=== PATIENT | female | born 2000 | race African-American/Black ===

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

== ENCOUNTER 2021-08-25 01:07 | Emergency (ER) | payer OTHER ==
--- OUTSIDE RECORDS SUMMARY | 2021-08-25 01:21 | XMS REPORT | Continuity of Care Document ---
:2000 Author Organization [facility] t Address [address] [place] [address] Care Team Providers Name Role Phone Bradley FAN Attending Clinician Unavailable Bradley Fan MD Attending Clinician DALTON Attending Clinician Unavailable FARHEEN Attending Clinician Unavailable Doctor Unassigned, Name Attending Clinician Unavailable Burton YOU Attending Clinician Unavailable Only, Test Attending Clinician Unavailable Shaylee OLIVAS Attending Clinician SHAYLEE Attending Clinician Unavailable Susan OLIVAS Attending Clinician Mor WALDRONP, J Attending Clinician Claudio WILLIAM, N Attending Clinician Yariel VILLANUEVA Attending Clinician Unavailable Sanjuana BAE Attending Clinician Unavailable Keon WILLIAM Attending Clinician KEON Attending Clinician Unavailable Sanjuana Bae MD Attending Clinician Brian WILLIAM Attending Clinician Bradley FAN Admitting Clinician Unavailable Bradley Fan MD Admitting Clinician Payers Payer Name Policy Type Policy Number Effective Date Expiration Date [facility] [id number] 2016 [facility] MEDICAID 00:00:00 Advance Directives Directive Decision Effective Termination Comments Source Date Date Healthcare Agents on N/A NPI: 1831 FileNameRelationshipHealthcare [id number] Agent RelationshipCommunicationLillie [facility] [phone] (Mobile) Problems Condition Condition Condition Status Onset Resolution Last Treating Co mments Source Name Details Category Date Date Treatment Clinician Date Morbid Morbid Disease Active NPI:183 obesity obesity 3 [id number] with body with body 00:00: mass index mass index 00 of of 40.0-49.9 40.0-49.9 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 Overview : NPI:183 a a 2-17 Added [id number] 00:00: automatic 00 ally from request for surgery [id number] 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 N PI:183 anterior anterior 0-30 949583 1 cruciate cruciate 00:00: ligament ligament 00 of right of right knee knee Acute Acute Disease Active 2019-04 NPI:183 medial medial 0-30 [id number] meniscus meniscus 00:00: tear of tear of 00 right knee right knee 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 homosexual 11-22 97636 behavior behavior 00:00: 00 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 smoke 05-25 [id number] exposure exposure 00:00: 00 Acanthosis Acanthosis Disease Active N PI:183 nigricans nigricans 05-25 1318 781 00:00: 00 Obesity Obesity Disease Active NPI:183 (BMI (BMI 2-22 4430924 35.0-39.9 35.0-39.9 00:00: without without 00 comorbidit comorbidit y) y) Allergies, Adverse Reactions, Alerts Allergy Allergy Status Severity Reaction(s) Onset Inactive Treating Comm ents Source Name Type Date Date Clinician NO KNOWN Drug Active NPI:183 ALLERGIE Class [id number] S Social History Social Habit Start Date Stop Date Quantity Comments Source Exposure to Not sure NPI:[id number] 1 SARS-CoV-2 (event) Tobacco use and 2020-08-20 2020-08-20 Never used NPI:[id number] exposure 00:00:00 00:00:00 Alcohol intake 2020-08-20 2020-08-20 Current NPI:[id number] 00:00:00 00:00:00 non-drinker of alcohol (finding) Tobacco Comment 2016-06-09 2016-06-09 step father NPI:[id number] 00:00:00 00:00:00 smokes outside Sex Assigned At [birth year] NPI:[id number] 00:00:00 00:00:00 Smoking Status Start Date Stop Date Source Never smoker Medications Ordered Filled Start Stop Current Ordering Indication Dosage Frequency Signature Comments Components Source Medication Medication Date Date Medication? Clinician (SIG) Name Name silver 2020-0 Yes [id number] Apply to [employer] I:183 sulfADIAZIN 3-24 area(s) 2 131 8781 E 00:00: (two) (SILVADENE) 00 times 1 % cream daily. silver 2020-0 Yes [id number] Apply to [employer] I:183 sulfADIAZIN 3-24 area(s) 2 131 8781 E 00:00: (two) (SILVADENE) 00 times 1 % cream daily. silver 2020-0 Yes [id number] Apply to [employer] I:183 sulfADIAZIN 3-24 area(s) 2 131 8781 E 00:00: (two) (SILVADENE) 00 times 1 % cream daily. silver 2020-0 Yes [id number] Apply to [employer] I:183 sulfADIAZIN 3-24 area(s) 2 131 8781 E 00:00: (two) (SILVADENE) 00 times 1 % cream daily. silver 2020-0 Yes [id number] Apply to [employer] I:183 sulfADIAZIN 3-24 area(s) 2 131 8781 E 00:00: (two) (SILVADENE) 00 times 1 % cream daily. silver 2020-0 Yes [id number] Apply to [employer] I:183 sulfADIAZIN 3-24 area(s) 2 131 8781 E 00:00: (two) (SILVADENE) 00 times 1 % cream daily. silver 2021-0 Yes [id number] Apply to [employer] I:183 sulfADIAZIN 3-24 area(s) 2 131 8781 E 00:00: (two) (SILVADENE) 00 times 1 % cream daily. silver 202-0 Yes [id number] Apply to [employer] I:183 sulfADIAZIN 3-24 area(s) 2 131 8781 E 00:00: (two) (SILVADENE) 00 times 1 % cream daily. HYDROmorpho 202-0 Yes .2mg 0.2 mg, NPI :183 ne - Slow IV [id number] (DILAUDID) 17:41: Push, injection 09 Q5MIN PRN, 0.2 mg 10 doses, Starting Tue06/17/20 at 1141, Until Discontinu ed, Routine, Pain (scale 7-10), PACU
Us e approved by (Faculty): PACU USE -ANESTHESI A SERVICE-HY DROMORPHON E INJECTIONS FENTanyl PF Yes 25ug 25 mcg, NPI :183 (SUBLIMAZE 06-17 Slow IV [id number] 1 (PF)) 17:41: Push, injection 09 Q5MIN PRN, 25 mcg 4 doses, Starting Tue06/17/20 at 1141, Until Discontinu ed, Routine, Pain (scale 4-6), PACU ondansetron Yes 4mg 4 mg, Slow NPI:183 (ZOFRAN 3 IV Push, [id number] (PF)) 17:41: PRN, 1 injection 4 09 dose, mg Starting Tue06/17/20 at 1141, Until Discontinu ed, Routine, Nausea and Vomiting (N/V), PACU gentian Yes PRN, NPI:183 shelly 1 % 06-17 Starting [id number] solution 15:28: Tue06/17/20 00 at 0928, Until Discontinu ed, Routine, Intra-op bupivacaine Yes PRN, NPI:18 3 (preserv 06-17 Starting [id number] free) 0.5% 14:44: Tue06/17/20 (SENSORCAIN 00 at 0844, E MPF) 0.5 Intra-op % (5 mg/mL) 30 mL, bupivacaine liposome (PF) (EXPAREL (PF)) 1.3 % (13.3 mg/mL) 266 mg, NaCl 0.9% (NS) 50 mL gabapentin 2020- No 600mg 600 mg, [employer] I:183 (NEURONTIN) 06-17 03-02 Oral, [id number] 1 tablet 600 11:30: 11:47 ONCE, 1 mg 00 :00 dose, Tue06/17/20 at 0530, Routine, DSU Pre-op ceFAZolin 2020- No 2000mg 2 g (2,000 NPI:183 in dextrose 3-02 03-02 mg), IV [id number] 781 (iso-os) 11:30: 12:56 Piggyback, (ANCEF) 2 00 :00 ONCE, 1 gram/100 mL dose, Tue Piggyback 2 06/17/20 at g 0530, 100 mL, DSU Pre-op
Reason for Anti-Infec tive: Surgical Prophylaxi s
Surgi harvey Prophylaxi s: Other (see Comments)< br>Duratio n of therapy: within 24 hours of surgery lactated 2020- No 1000mL at 42 NPI:1 83 ringers IV 3-02 03-02 mL/hr, [id number] 1 infusion 11:30: 11:48 1,000 mL, 1,000 mL 00 :00 IV Infusion, ONCE, 1 dose, 06/17/20 at 0530, Routine, DSU Pre-op gabapentin 2020-2020- No 600mg Take 1 NPI :183 600 mg 3-02 03-17 tablet by [id number] tablet 00:00: 04:59 mouth 3 00 :00 (three) times daily for 14 days. gabapentin 2020-2020- No 600mg Take 1 NPI :183 600 mg 3-02 03-17 tablet by [id number] tablet 00:00: 04:59 mouth 3 00 :00 (three) times daily for 14 days. gabapentin 2020-2020- No 600mg Take 1 NPI :183 600 mg 3-02 03-17 tablet by [id number] tablet 00:00: 04:59 mouth 3 00 :00 (three) times daily for 14 days. gabapentin 2020-2020- No 600mg Take 1 NPI :183 600 mg 3-02 03-17 tablet by [id number] tablet 00:00: 04:59 mouth 3 00 :00 (three) times daily for 14 days. chlorhexidi Yes [id number] Apply to NPI:183 ne 4 % 2-24 area(s) [id number] external 00:00: once daily liquid 00 as needed for Wound care. chlorhexidi Yes [id number] Apply to NPI:183 ne 4 % 2-24 area(s) [id number] external 00:00: once daily liquid 00 as needed for Wound care. chlorhexidi Yes [id number] Apply to NPI:183 ne 4 % 2-24 area(s) [id number] external 00:00: once daily liquid 00 as needed for Wound care. chlorhexidi Yes [id number] Apply to NPI:183 ne 4 % 2-24 area(s) [id number] external 00:00: once daily liquid 00 as needed for Wound care. chlorhexidi Yes [id number] Apply to NPI:183 ne 4 % 2-24 area(s) [id number] external 00:00: once daily liquid 00 as needed for Wound care. gabapentin 2020- No [id number] 600mg Take 1 NPI:183 ER 600 mg 2-24 -11 tablet by [id number] tablet, 00:00: 05:59 mouth extended 00 :00 every 8 release 24 (eight) hr hours for 14 days. acetaminoph 2020- No [id number] 1000mg Take 2 NPI:183 en (TYLENOL 2-09 07-11 tablets by 1 [id number] EXTRA 00:00: 05:59 mouth STRENGTH) 00 :00 every 8 500 mg (eight) tablet hours for 14 days. celecoxib 2020- No [id number] 200mg Take 1 NPI:183 (CELEBREX) 2-24 -11 capsule by 13 [id number] 200 mg 00:00: 05:59 mouth 2 capsule 00 :00 (two) times daily with meals for 14 days. gabapentin 2020- No [id number] 600mg Take 1 NPI:183 ER 600 mg 2-09 07-11 tablet by [id number] tablet, 00:00: 05:59 mouth extended 00 :00 every 8 release 24 (eight) hr hours for 14 days. acetaminoph 2020- No [id number] 1000mg Take 2 NPI:183 en (TYLENOL 2-24 -11 tablets by 1 [id number] EXTRA 00:00: 05:59 mouth STRENGTH) 00 :00 every 8 500 mg (eight) tablet hours for 14 days. celecoxib 2020- No [id number] 200mg Take 1 NPI:183 (CELEBREX) 2-09 07- capsule by 13 [id number] 200 mg 00:00: 05:59 mouth 2 capsule 00 :00 (two) times daily with meals for 14 days. gabapentin 2020- No [id number] 600mg Take 1 NPI:183 ER 600 mg 2- tablet by [id number] tablet, 00:00: 05:59 mouth extended 00 :00 every 8 release 24 (eight) hr hours for 14 days. acetaminoph 2020- No [id number] 1000mg Take 2 NPI:183 en (TYLENOL 06-11- tablets by 1 [id number] EXTRA 00:00: 05:59 mouth STRENGTH) 00 :00 every 8 500 mg (eight) tablet hours for 14 days. celecoxib 2020- No [id number] 200mg Take 1 NPI:183 (CELEBREX) 2- capsule by 13 [id number] 200 mg 00:00: 05:59 mouth 2 capsule 00 :00 (two) times daily with meals for 14 days. gabapentin 2020- No [id number] 600mg Take 1 NPI:183 ER 600 mg 06-11 tablet by [id number] tablet, 00:00: 05:59 mouth extended 00 :00 every 8 release 24 (eight) hr hours for 14 days. acetaminoph No [id number] 1000mg Take 2 NPI:183 en (TYLENOL 06-11 tablets by 1 [id number] EXTRA 00:00: 05:59 mouth STRENGTH) 00 :00 every 8 500 mg (eight) tablet hours for 14 days. celecoxib 2020- No [id number] 200mg Take 1 NPI:183 (CELEBREX) 2- capsule by 13 [id number] 200 mg 00:00: 05:59 mouth 2 capsule 00 :00 (two) times daily with meals for 14 days. gabapentin No [id number] 600mg Take 1 NPI:183 ER 600 mg 2-09 07-11 tablet by [id number] tablet, 00:00: 05:59 mouth extended 00 :00 every 8 release 24 (eight) hr hours for 14 days. acetaminoph 2020- No [id number] 1000mg Take 2 NPI:183 en (TYLENOL 224 -11 tablets by 1 [id number] EXTRA 00:00: 05:59 mouth STRENGTH) 00 :00 every 8 500 mg (eight) tablet hours for 14 days. celecoxib 2020- No [id number] 200mg Take 1 NPI:183 (CELEBREX) 2- capsule by 13 [id number] 200 mg 00:00: 05:59 mouth 2 capsule 00 :00 (two) times daily with meals for 14 days. gabapentin 2020- No [id number] 600mg Take 1 NPI:183 ER 600 mg 06-11- tablet by [id number] tablet, 00:00: 05:59 mouth extended 00 :00 every 8 release 24 (eight) hr hours for 14 days. acetaminoph No [id number] 1000mg Take 2 NPI:183 en (TYLENOL 06-11- tablets by 1 [id number] EXTRA 00:00: 05:59 mouth STRENGTH) 00 :00 every 8 500 mg (eight) tablet hours for 14 days. celecoxib 2020- No [id number] 200mg Take 1 NPI:183 (CELEBREX) 06-11- capsule by 13 [id number] 200 mg 00:00: 05:59 mouth 2 capsule 00 :00 (two) times daily with meals for 14 days. acetaminoph No [id number] 1000mg Take 2 NPI:183 en (TYLENOL 2-11 tablets by 1 [id number] EXTRA 00:00: 05:59 mouth STRENGTH) 00 :00 every 8 500 mg (eight) tablet hours for 14 days. celecoxib 2020- No [id number] 200mg Take 1 NPI:183 (CELEBREX) 2-11 capsule by 13 [id number] 200 mg 00:00: 05:59 mouth 2 capsule 00 :00 (two) times daily with meals for 14 days. acetaminoph No [id number] 1000mg Take 2 NPI:183 en (TYLENOL 2-24 -11 tablets by 1 [id number] EXTRA 00:00: 05:59 mouth STRENGTH) 00 :00 every 8 500 mg (eight) tablet hours for 14 days. celecoxib 2020- No [id number] 200mg Take 1 NPI:183 (CELEBREX) 06-11 capsule by 13 [id number] 200 mg 00:00: 05:59 mouth 2 capsule 00 :00 (two) times daily with meals for 14 days. acetaminoph 2020- No [id number] 1000mg Take 2 NPI:183 en (TYLENOL 06-11 tablets by 1 [id number] EXTRA 00:00: 05:59 mouth STRENGTH) 00 :00 every 8 500 mg (eight) tablet hours for 14 days. celecoxib 2020- No [id number] 200mg Take 1 NPI:183 (CELEBREX) 06-11 capsule by 13 [id number] 200 mg 00:00: 05:59 mouth 2 capsule 00 :00 (two) times daily with meals for 14 days. acetaminoph 2020- No [id number] 1000mg Take 2 NPI:183 en (TYLENOL 06-11 tablets by 1 [id number] EXTRA 00:00: 05:59 mouth STRENGTH) 00 :00 every 8 500 mg (eight) tablet hours for 14 days. celecoxib 2020- No [id number] 200mg Take 1 NPI:183 (CELEBREX) 06-11 capsule by 13 [id number] 200 mg 00:00: 05:59 mouth 2 capsule 00 :00 (two) times daily with meals for 14 days. chlorhexidi 2020- No [id number] Apply to NPI:183 ne 4 % 06-11 area(s) [id number] external 00:00: 00:00 once daily liquid 00 :00 as needed for Wound care. gabapentin 2020- No [id number] 600mg Take 1 NPI:183 ER 600 mg 06-11 tablet by [id number] tablet, 00:00: 00:00 mouth extended 00 :00 every 8 release 24 (eight) hr hours for 14 days. scopolamine 2020- No [id number] 1.5mg Apply 1 NPI:183 transdermal 06-11 Patch to 131 8781 1 mg over 3 00:00: 05:59 area(s) days patch 00 :00 every 72 (seventy-t wo) hours for 3 days. scopolamine 2020- No [id number] 1.5mg Apply 1 NPI:183 transdermal 2-11 06- Patch to 131 8781 1 mg over 3 00:00: 05:59 area(s) days patch 00 :00 every 72 (seventy-t wo) hours for 3 days. scopolamine 2020- No [id number] 1.5mg Apply 1 NPI:183 transdermal 2- Patch to 131 8781 1 mg over 3 00:00: 05:59 area(s) days patch 00 :00 every 72 (seventy-t wo) hours for 3 days. ibuprofen 2019-04 Yes 600mg Take 600 NPI :183 600 mg 1-03 mg by [id number] tablet 00:00: mouth 00 every 6 (six) hours as needed for Pain (scale 4-6). ibuprofen 2019-04 Yes 600mg Take 600 NPI :183 600 mg 1-03 mg by [id number] tablet 00:00: mouth 00 every 6 (six) hours as needed for Pain (scale 4-6). ibuprofen 2019-04 Yes 600mg Take 600 NPI :183 600 mg 1-03 mg by [id number] tablet 00:00: mouth 00 every 6 (six) hours as needed for Pain (scale 4-6). ibuprofen 2019-04 Yes 600mg Take 600 NPI :183 600 mg 1-03 mg by [id number] tablet 00:00: mouth 00 every 6 (six) hours as needed for Pain (scale 4-6). ibuprofen 2019-04 Yes 600mg Take 600 NPI :183 600 mg 1-03 mg by [id number] tablet 00:00: mouth 00 every 6 (six) hours as needed for Pain (scale 4-6). ibuprofen 2019-04 No 600mg Take 600 [employer] I:183 600 mg 1-03 01-27 mg by [id number] tablet 00:00: 00:00 mouth 00 :00 every 6 (six) hours as needed for Pain (scale 4-6). ibuprofen 2019-04 No 600mg Take 600 [employer] I:183 600 mg 1-03 01-27 mg by [id number] tablet 00:00: 00:00 mouth 00 :00 every 6 (six) hours as needed for Pain (scale 4-6). ibuprofen 2019-04 600mg Take 600 [employer] I:183 600 mg 1-03 01-27 mg by [id number] tablet 00:00: 00:00 mouth 00 :00 every 6 (six) hours as needed for Pain (scale 4-6). ibuprofen 2019-04 600mg Take 600 [employer] I:183 600 mg - 01-27 mg by [id number] tablet 00:00: 00:00 mouth 00 :00 every 6 (six) hours as needed for Pain (scale 4-6). acetaminoph 2019-04 1000mg 1,000 mg, NPI:183 en 0-04 10-04 Oral, [id number] (TYLENOL) 21:00: 20:01 ONCE, 1 tablet 00 :00 dose, Sun 1,000 mg 01/20/20 at 1600, RAYMOND traMADoL 50 2019-04 Yes [id number] 50mg Take 1 NPI: 183 mg tablet 0-04 tablet by [id number] 81 00:00: mouth 00 every 8 (eight) hours as needed for Pain (scale 7-10) for up to 15 doses. Indication s: acute pain traMADoL 50 2019-04 Yes [id number] 50mg Take 1 NPI: 183 mg tablet 0-04 tablet by [id number] 81 00:00: mouth 00 every 8 (eight) hours as needed for Pain (scale 7-10) for up to 15 doses. Indication s: acute pain traMADoL 50 2019-04 Yes 4647 50mg Take 1 NPI: 183 mg tablet 0-04 tablet by [id number] 81 00:00: mouth 00 every 8 (eight) hours as needed for Pain (scale 7-10) for up to 15 doses. Indication s: acute pain traMADoL 50 2019-04 Yes 4647 50mg Take 1 NPI: 183 mg tablet 0-04 tablet by [id number] 81 00:00: mouth 00 every 8 (eight) hours as needed for Pain (scale 7-10) for up to 15 doses. Indication s: acute pain traMADoL 50 2019-04 Yes [id number] 50mg Take 1 NPI: 183 mg tablet 0-04 tablet by [id number] 81 00:00: mouth 00 every 8 (eight) hours as needed for Pain (scale 7-10) for up to 15 doses. Indication s: acute pain traMADoL 50 2019-04 Yes 4647 50mg Take 1 NPI: 183 mg tablet 0-04 tablet by [id number] 81 00:00: mouth 00 every 8 (eight) hours as needed for Pain (scale 7-10) for up to 15 doses. Indication s: acute pain traMADoL 50 2019-04 Yes 4647 50mg Take 1 NPI: 183 mg tablet 0-04 tablet [place] [id number] 81 00:00: mouth 00 every 8 (eight) hours as needed for Pain (scale 7-10) for up to 15 doses. Indication s: acute pain traMADoL 50 2019-04 Yes 4647 50mg Take 1 NPI: 183 mg tablet 0-04 tablet [place] [id number] 81 00:00: mouth 00 every 8 (eight) hours as needed for Pain (scale 7-10) for up to 15 doses. Indication s: acute pain traMADoL 50 2019-04 Yes 4647 50mg Take 1 NPI: 183 mg tablet 0-04 tablet by [id number] 81 00:00: mouth 00 every 8 (eight) hours as needed for Pain (scale 7-10) for up to 15 doses. Indication s: acute pain traMADoL 50 2019-04 Yes 4647 50mg Take 1 NPI: 183 mg tablet 0-04 tablet by [id number] 81 00:00: mouth 00 every 8 (eight) hours as needed for Pain (scale 7-10) for up to 15 doses. Indication s: acute pain traMADoL 50 2019-04 4647 50mg Take 1 NPI :183 mg tablet 0-04 01-27 tablet by [id number] 00:00: 00:00 mouth 00 :00 every 8 (eight) hours as needed for Pain (scale 7-10) for up to 15 doses. Indication s: acute pain traMADoL 50 2019-04 4647 50mg Take 1 NPI :183 mg tablet 0-04 01-27 tablet by [id number] 00:00: 00:00 mouth 00 :00 every 8 (eight) hours as needed for Pain (scale 7-10) for up to 15 doses. Indication s: acute pain traMADoL 50 2019-04 No 4647 50mg Take 1 NPI :183 mg tablet 0-04 01-27 tablet by [id number] 00:00: 00:00 mouth 00 :00 every 8 (eight) hours as needed for Pain (scale 7-10) for up to 15 doses. Indication s: acute pain traMADoL 50 2019-04- No 4647 50mg Take 1 NPI :183 mg tablet 0-04 - tablet by [id number] 00:00: 00:00 mouth 00 :00 every 8 (eight) hours as needed for Pain (scale 7-10) for up to 15 doses. Indication s: acute pain ibuprofen 2019-04- No [id number] 800mg Take 1 NPI:183 800 mg 0-04 10- tablet by [id number] tablet 00:00: 00:00 mouth 00 :00 every 8 (eight) hours as needed for Pain (scale 4-6) for up to 30 doses. ibuprofen 2020-0 Yes [id number] 800mg Take 1 N PI:183 800 mg 4-03 tablet by [id number] tablet 00:00: mouth 00 every 8 (eight) hours. ibuprofen 2020-0 Yes [id number] 800mg Take 1 N PI:183 800 mg 4-03 tablet by [id number] tablet 00:00: mouth 00 every 8 (eight) hours. ibuprofen 2020-0 Yes [id number] 800mg Take 1 N PI:183 800 mg 4-03 tablet by [id number] tablet 00:00: mouth 00 every 8 (eight) hours. ibuprofen 2020-0 Yes [id number] 800mg Take 1 N PI:183 800 mg 4-03 tablet by [id number] tablet 00:00: mouth 00 every 8 (eight) hours. ibuprofen 2020-0 Yes [id number] 800mg Take 1 N PI:183 800 mg 4-03 tablet by [id number] tablet 00:00: mouth 00 every 8 (eight) hours. ibuprofen 2020-0 Yes [id number] 800mg Take 1 N PI:183 800 mg 4-03 tablet by [id number] tablet 00:00: mouth 00 every 8 (eight) hours. ibuprofen 2020-0 Yes [id number] 800mg Take 1 N PI:183 800 mg 4-03 tablet by [id number] tablet 00:00: mouth 00 every 8 (eight) hours. ibuprofen 2020-0 Yes [id number] 800mg Take 1 N PI:183 800 mg 4-03 tablet by [id number] tablet 00:00: mouth 00 every 8 (eight) hours. ibuprofen 2020-0 Yes [id number] 800mg Take 1 N PI:183 800 mg 4-03 tablet by [id number] tablet 00:00: mouth 00 every 8 (eight) hours. ibuprofen 2020-0 2020- No [id number] 800mg Take 1 NPI:183 800 mg 4-03 09-16 tablet by [id number] tablet 00:00: 00:00 mouth 00 :00 every 8 (eight) hours. ibuprofen 2020-0 2020- No [id number] 800mg Take 1 NPI:183 800 mg 4-03 09-16 tablet by [id number] tablet 00:00: 00:00 mouth 00 :00 every 8 (eight) hours. ibuprofen 2019-0 2020- No [id number] 800mg Take 1 NPI:183 800 mg 4-03 09-16 tablet by [id number] tablet 00:00: 00:00 mouth 00 :00 every 8 (eight) hours. ibuprofen 2019-0 2020- No [id number] 800mg Take 1 NPI:183 800 mg 4-03 09-16 tablet by [id number] tablet 00:00: 00:00 mouth 00 :00 every 8 (eight) hours. traMADOL 50 2019-0 Yes [id number] 50mg Take 1 NPI:183 mg tablet 6-03 tablet by [id number] 81 00:00: mouth 00 every 6 (six) hours as needed for Pain (scale 4-6). ibuprofen 2018-0 Yes [id number] 800mg Take 1 N PI:183 800 mg 6-03 tablet by [id number] tablet 00:00: mouth 00 every 8 (eight) hours. traMADOL 50 2018-0 2020- No [id number] 50mg Take 1 NPI:183 mg tablet 6-03 04-03 tablet by [id number] 00:00: 00:00 mouth 00 :00 every 6 (six) hours as needed for Pain (scale 4-6). ibuprofen 2019-0 2020- No [id number] 800mg Take 1 NPI:183 800 mg 6-03 04-03 tablet by [id number] tablet 00:00: 00:00 mouth 00 :00 every 8 (eight) hours. traMADOL 50 2019-0 2020- No [id number] 50mg Take 1 NPI:183 mg tablet 6-03 04-03 tablet by [id number] 00:00: 00:00 mouth 00 :00 every 6 (six) hours as needed for Pain (scale 4-6). ibuprofen 2019-0 2020- No [id number] 800mg Take 1 NPI:183 800 mg 6-03 04-03 tablet by [id number] tablet 00:00: 00:00 mouth 00 :00 every 8 (eight) hours. Dextrometho 2018-0 Yes [id number] 10mL Take 10 mL NPI:183 rphan-Guaif 2-12 by mouth 2 13 [id number] enesin 00:00: (two) (DELSYM 00 times COUGH-CHEST daily. CONGEST DM) 5-100 mg/5 mL Liqd Dextrometho 2018- 2020- No [id number] 10mL Take 10 mL NPI:183 rphan-Guaif 2-12 -03 by mouth 2 1 [id number] enesin 00:00: 00:00 (two) (DELSYM 00 :00 times COUGH-CHEST daily. CONGEST DM) 5-100 mg/5 mL Liqd Dextrometho 2017- 2020- No [id number] 10mL Take 10 mL NPI:183 rphan-Guaif 2-12 -03 by mouth 2 1 [id number] enesin 00:00: 00:00 (two) (DELSYM 00 :00 times COUGH-CHEST daily. CONGEST DM) 5-100 mg/5 mL Liqd No known No NPI:183 medications [id number] No known No NPI:183 medications [id number] No known No NPI:183 medications [id number] No known No NPI:183 medications [id number] Immunizations Ordered Immunization Filled Immunization Date Status Commen ts Source Name Name Meningococcal B, OMV 2019-11-23 Completed NPI: [id number] 00:00:00 1 Meningococcal B, OMV 2019-11-23 Completed NPI: [id number] 00:00:00 1 Meningococcal B, OMV 2019-11-23 Completed NPI: [id number] 00:00:00 1 Meningococcal B, OMV 2019-11-23 Completed NPI: [id number] 00:00:00 1 Meningococcal B, OMV 2019-11-23 Completed NPI: [id number] 00:00:00 1 Meningococcal B, OMV 2019-11-23 Completed NPI: [id number] 00:00:00 1 Meningococcal B, OMV 2019-11-23 Completed NPI: [id number] 00:00:00 1 Meningococcal B, OMV 2019-11-23 Completed NPI: [id number] 00:00:00 1 Meningococcal B, OMV 2019-11-23 Completed NPI: [id number] 00:00:00 1 Meningococcal B, OMV 2019-11-23 Completed NPI: [id number] 00:00:00 1 Meningococcal B, OMV 2019-11-23 Completed NPI: [id number] 00:00:00 1 Meningococcal B, OMV 2019-11-23 Completed NPI: [id number] 00:00:00 1 Meningococcal B, OMV 2019-11-23 Completed NPI: [id number] 00:00:00 1 Meningococcal B, OMV 2019-11-23 Completed NPI: [id number] 00:00:00 1 Meningococcal B, OMV 2019-11-23 Completed NPI: [id number] 00:00:00 1 Meningococcal B, OMV 2019-11-23 Completed NPI: [id number] 00:00:00 1 Meningococcal B, OMV 2019-11-23 Completed NPI: [id number] 00:00:00 1 Meningococcal B, OMV 2019-11-23 Completed NPI: [id number] 00:00:00 1 Meningococcal B, OMV 2019-11-23 Completed NPI: [id number] 00:00:00 1 Meningococcal B, OMV 2019-11-23 Completed NPI: [id number] 00:00:00 1 Meningococcal B, OMV 2019-11-23 Completed NPI: [id number] 00:00:00 1 Meningococcal B, OMV 2019-11-23 Completed NPI: [id number] 00:00:00 1 Meningococcal B, OMV 2019-11-23 Completed NPI: [id number] 00:00:00 1 Meningococcal B, OMV 2019-11-23 Completed NPI: [id number] 00:00:00 1 Meningococcal B, OMV 2019-11-23 Completed NPI: [id number] 00:00:00 1 Meningococcal B, OMV 2019-11-23 Completed NPI: [id number] 00:00:00 1 Meningococcal B, OMV 2019-11-23 Completed NPI: [id number] 00:00:00 1 Meningococcal B, OMV 2019-11-23 Completed NPI: [id number] 00:00:00 1 Meningococcal B, OMV 2019-11-23 Completed NPI: [id number] 00:00:00 1 Meningococcal B, OMV 2019-11-23 Completed NPI: [id number] 00:00:00 1 Meningococcal B, OMV 2019-11-23 Completed NPI: [id number] 00:00:00 1 Meningococcal B, OMV 2019-11-23 Completed NPI: [id number] 00:00:00 1 Meningococcal B, OMV 2019-11-23 Completed NPI: [id number] 00:00:00 1 Meningococcal B, OMV 2019-11-23 Completed NPI: [id number] 00:00:00 1 Meningococcal B, OMV 2019-11-23 Completed NPI: [id number] 00:00:00 1 Meningococcal B, OMV 2019-11-23 Completed NPI: [id number] 00:00:00 1 Meningococcal B, OMV 2019-11-23 Completed NPI: [id number] 00:00:00 1 Meningococcal B, OMV 2019-11-23 Completed NPI: [id number] 00:00:00 1 Meningococcal B, OMV 2019-11-23 Completed NPI: [id number] 00:00:00 1 Meningococcal B, OMV 2019-11-23 Completed NPI: [id number] 00:00:00 1 Meningococcal B, OMV 2019-11-23 Completed NPI: [id number] 00:00:00 1 Meningococcal B, OMV 2019-11-23 Completed NPI: [id number] 00:00:00 1 Meningococcal 2017-05-25 Completed NPI:[id number] 78 Polysaccharide (groups 00:00:00 1 A, C, Y and W-135) conjugate vaccine (MCV4P) Influenza Virus 2017-05-25 Completed NPI:[id number] Vaccine Quad IM 3+ YRS 00:00:00 1 Meningococcal B, OMV 2017-05-25 Completed NPI: [id number] 00:00:00 1 Meningococcal 2017-05-25 Completed NPI:[id number] 78 Polysaccharide (groups 00:00:00 1 A, C, Y and W-135) conjugate vaccine (MCV4P) Influenza Virus 2017-05-25 Completed NPI:[id number] Vaccine Quad IM 3+ YRS 00:00:00 1 Meningococcal B, OMV 2017-05-25 Completed NPI: [id number] 00:00:00 1 Meningococcal 2017-05-25 Completed NPI:[id number] 78 Polysaccharide (groups 00:00:00 1 A, C, Y and W-135) conjugate vaccine (MCV4P) Influenza Virus 2017-05-25 Completed NPI:[id number] Vaccine Quad IM 3+ YRS 00:00:00 1 Meningococcal B, OMV 2017-05-25 Completed NPI: [id number] 00:00:00 1 Meningococcal 2017-05-25 Completed NPI:[id number] 78 Polysaccharide (groups 00:00:00 1 A, C, Y and W-135) conjugate vaccine (MCV4P) Meningococcal 2017-05-25 Completed NPI:[id number] 78 Polysaccharide (groups 00:00:00 1 A, C, Y and W-135) conjugate vaccine (MCV4P) Influenza Virus 2017-05-25 Completed NPI:[id number] Vaccine Quad IM 3+ YRS 00:00:00 1 Meningococcal B, OMV 2017-05-25 Completed NPI: [id number] 00:00:00 1 Influenza Virus 2017-05-25 Completed NPI:[id number] Vaccine Quad IM 3+ YRS 00:00:00 1 Meningococcal B, OMV 2017-05-25 Completed NPI: [id number] 00:00:00 1 Meningococcal 2017-05-25 Completed NPI:[id number] 78 Polysaccharide (groups 00:00:00 1 A, C, Y and W-135) conjugate vaccine (MCV4P) Influenza Virus 2017-05-25 Completed NPI:[id number] Vaccine Quad IM 3+ YRS 00:00:00 1 Meningococcal B, OMV 2017-05-25 Completed NPI: [id number] 00:00:00 1 Meningococcal 2017-05-25 Completed NPI:[id number] 78 Polysaccharide (groups 00:00:00 1 A, C, Y and W-135) conjugate vaccine (MCV4P) Influenza Virus 2017-05-25 Completed NPI:[id number] Vaccine Quad IM 3+ YRS 00:00:00 1 Meningococcal B, OMV 2017-05-25 Completed NPI: [id number] 00:00:00 1 Meningococcal 2017-05-25 Completed NPI:[id number] 78 Polysaccharide (groups 00:00:00 1 A, C, Y and W-135) conjugate vaccine (MCV4P) Influenza Virus 2017-05-25 Completed NPI:[id number] Vaccine Quad IM 3+ YRS 00:00:00 1 Meningococcal B, OMV 2017-05-25 Completed NPI: [id number] 00:00:00 1 Meningococcal 2017-05-25 Completed NPI:[id number] 78 Polysaccharide (groups 00:00:00 1 A, C, Y and W-135) conjugate vaccine (MCV4P) Influenza Virus 2017-05-25 Completed NPI:[id number] Vaccine Quad IM 3+ YRS 00:00:00 1 Meningococcal B, OMV 2017-05-25 Completed NPI: [id number] 00:00:00 1 Meningococcal 2017-05-25 Completed NPI:[id number] 78 Polysaccharide (groups 00:00:00 1 A, C, Y and W-135) conjugate vaccine (MCV4P) Influenza Virus 2017-05-25 Completed NPI:[id number] Vaccine Quad IM 3+ YRS 00:00:00 1 Meningococcal B, OMV 2017-05-25 Completed NPI: [id number] 00:00:00 1 Meningococcal 2017-05-25 Completed NPI:[id number] 78 Polysaccharide (groups 00:00:00 1 A, C, Y and W-135) conjugate vaccine (MCV4P) Influenza Virus 2017-05-25 Completed NPI:[id number] Vaccine Quad IM 3+ YRS 00:00:00 1 Meningococcal B, OMV 2017-05-25 Completed NPI: [id number] 00:00:00 1 Meningococcal 2017-05-25 Completed NPI:[id number] 78 Polysaccharide (groups 00:00:00 1 A, C, Y and W-135) conjugate vaccine (MCV4P) Influenza Virus 2017-05-25 Completed NPI:[id number] Vaccine Quad IM 3+ YRS 00:00:00 1 Meningococcal B, OMV 2017-05-25 Completed NPI: [id number] 00:00:00 1 Meningococcal 2017-05-25 Completed NPI:[id number] 78 Polysaccharide (groups 00:00:00 1 A, C, Y and W-135) conjugate vaccine (MCV4P) Influenza Virus 2017-05-25 Completed NPI:[id number] Vaccine Quad IM 3+ YRS 00:00:00 1 Meningococcal B, OMV 2017-05-25 Completed NPI: [id number] 00:00:00 1 Meningococcal 2017-05-25 Completed NPI:[id number] 78 Polysaccharide (groups 00:00:00 1 A, C, Y and W-135) conjugate vaccine (MCV4P) Influenza Virus 2017-05-25 Completed NPI:[id number] Vaccine Quad IM 3+ YRS 00:00:00 1 Meningococcal B, OMV 2017-05-25 Completed NPI: [id number] 00:00:00 1 Meningococcal 2017-05-25 Completed NPI:[id number] 78 Polysaccharide (groups 00:00:00 1 A, C, Y and W-135) conjugate vaccine (MCV4P) Influenza Virus 2017-05-25 Completed NPI:[id number] Vaccine Quad IM 3+ YRS 00:00:00 1 Meningococcal B, OMV 2017-05-25 Completed NPI: [id number] 00:00:00 1 Meningococcal 2017-05-25 Completed NPI:[id number] 78 Polysaccharide (groups 00:00:00 1 A, C, Y and W-135) conjugate vaccine (MCV4P) Influenza Virus 2017-05-25 Completed NPI:[id number] Vaccine Quad IM 3+ YRS 00:00:00 1 Meningococcal B, OMV 2017-05-25 Completed NPI: [id number] 00:00:00 1 Meningococcal 2017-05-25 Completed NPI:[id number] 78 Polysaccharide (groups 00:00:00 1 A, C, Y and W-135) conjugate vaccine (MCV4P) Influenza Virus 2017-05-25 Completed NPI:[id number] Vaccine Quad IM 3+ YRS 00:00:00 1 Meningococcal B, OMV 2017-05-25 Completed NPI: [id number] 00:00:00 1 Meningococcal 2017-05-25 Completed NPI:[id number] 78 Polysaccharide (groups 00:00:00 1 A, C, Y and W-135) conjugate vaccine (MCV4P) Influenza Virus 2017-05-25 Completed NPI:[id number] Vaccine Quad IM 3+ YRS 00:00:00 1 Meningococcal B, OMV 2017-05-25 Completed NPI: [id number] 00:00:00 1 Meningococcal 2017-05-25 Completed NPI:[id number] 78 Polysaccharide (groups 00:00:00 1 A, C, Y and W-135) conjugate vaccine (MCV4P) Influenza Virus 2017-05-25 Completed NPI:[id number] Vaccine Quad IM 3+ YRS 00:00:00 1 Meningococcal B, OMV 2017-05-25 Completed NPI: [id number] 00:00:00 1 Meningococcal 2017-05-25 Completed NPI:[id number] 78 Polysaccharide (groups 00:00:00 1 A, C, Y and W-135) conjugate vaccine (MCV4P) Influenza Virus 2017-05-25 Completed NPI:[id number] Vaccine Quad IM 3+ YRS 00:00:00 1 Meningococcal B, OMV 2017-05-25 Completed NPI: [id number] 00:00:00 1 Meningococcal 2017-05-25 Completed NPI:[id number] 78 Polysaccharide (groups 00:00:00 1 A, C, Y and W-135) conjugate vaccine (MCV4P) Influenza Virus 2017-05-25 Completed NPI:[id number] Vaccine Quad IM 3+ YRS 00:00:00 1 Meningococcal B, OMV 2017-05-25 Completed NPI: [id number] 00:00:00 1 Meningococcal 2017-05-25 Completed NPI:[id number] 78 Polysaccharide (groups 00:00:00 1 A, C, Y and W-135) conjugate vaccine (MCV4P) Influenza Virus 2017-05-25 Completed NPI:[id number] Vaccine Quad IM 3+ YRS 00:00:00 1 Meningococcal B, OMV 2017-05-25 Completed NPI: [id number] 00:00:00 1 Meningococcal 2017-05-25 Completed NPI:[id number] 78 Polysaccharide (groups 00:00:00 1 A, C, Y and W-135) conjugate vaccine (MCV4P) Influenza Virus 2017-05-25 Completed NPI:[id number] Vaccine Quad IM 3+ YRS 00:00:00 1 Meningococcal B, OMV 2017-05-25 Completed NPI: [id number] 00:00:00 1 Meningococcal 2017-05-25 Completed NPI:[id number] 78 Polysaccharide (groups 00:00:00 1 A, C, Y and W-135) conjugate vaccine (MCV4P) Influenza Virus 2017-05-25 Completed NPI:[id number] Vaccine Quad IM 3+ YRS 00:00:00 1 Meningococcal B, OMV 2017-05-25 Completed NPI: [id number] 00:00:00 1 Meningococcal 2017-05-25 Completed NPI:[id number] 78 Polysaccharide (groups 00:00:00 1 A, C, Y and W-135) conjugate vaccine (MCV4P) Influenza Virus 2017-05-25 Completed NPI:[id number] Vaccine Quad IM 3+ YRS 00:00:00 1 Meningococcal B, OMV 2017-05-25 Completed NPI: [id number] 00:00:00 1 Meningococcal 2017-05-25 Completed NPI:[id number] 78 Polysaccharide (groups 00:00:00 1 A, C, Y and W-135) conjugate vaccine (MCV4P) Influenza Virus 2017-05-25 Completed NPI:[id number] Vaccine Quad IM 3+ YRS 00:00:00 1 Meningococcal B, OMV 2017-05-25 Completed NPI: [id number] 00:00:00 1 Meningococcal 2017-05-25 Completed NPI:[id number] 78 Polysaccharide (groups 00:00:00 1 A, C, Y and W-135) conjugate vaccine (MCV4P) Influenza Virus 2017-05-25 Completed NPI:[id number] Vaccine Quad IM 3+ YRS 00:00:00 1 Meningococcal B, OMV 2017-05-25 Completed NPI: [id number] 00:00:00 1 Meningococcal 2017-05-25 Completed NPI:[id number] 78 Polysaccharide (groups 00:00:00 1 A, C, Y and W-135) conjugate vaccine (MCV4P) Influenza Virus 2017-05-25 Completed NPI:[id number] Vaccine Quad IM 3+ YRS 00:00:00 1 Meningococcal B, OMV 2017-05-25 Completed NPI: [id number] 00:00:00 1 Meningococcal 2017-05-25 Completed NPI:[id number] 78 Polysaccharide (groups 00:00:00 1 A, C, Y and W-135) conjugate vaccine (MCV4P) Influenza Virus 2017-05-25 Completed NPI:[id number] Vaccine Quad IM 3+ YRS 00:00:00 1 Meningococcal B, OMV 2017-05-25 Completed NPI: [id number] 00:00:00 1 Meningococcal 2017-05-25 Completed NPI:[id number] 78 Polysaccharide (groups 00:00:00 1 A, C, Y and W-135) conjugate vaccine (MCV4P) Influenza Virus 2017-05-25 Completed NPI:[id number] 187 Vaccine Quad IM 3+ YRS 00:00:00 1 Meningococcal B, OMV 2017-05-25 Completed NPI: [id number] 00:00:00 1 Meningococcal 2017-05-25 Completed NPI:[id number] 78 Polysaccharide (groups 00:00:00 1 A, C, Y and W-135) conjugate vaccine (MCV4P) Influenza Virus 2017-05-25 Completed NPI:[id number] Vaccine Quad IM 3+ YRS 00:00:00 1 Meningococcal B, OMV 2017-05-25 Completed NPI: [id number] 00:00:00 1 Meningococcal 2017-05-25 Completed NPI:[id number] 78 Polysaccharide (groups 00:00:00 1 A, C, Y and W-135) conjugate vaccine (MCV4P) Influenza Virus 2017-05-25 Completed NPI:[id number] Vaccine Quad IM 3+ YRS 00:00:00 1 Meningococcal B, OMV 2017-05-25 Completed NPI: [id number] 00:00:00 1 Meningococcal 2017-05-25 Completed NPI:[id number] 78 Polysaccharide (groups 00:00:00 1 A, C, Y and W-135) conjugate vaccine (MCV4P) Influenza Virus 2017-05-25 Completed NPI:[id number] Vaccine Quad IM 3+ YRS 00:00:00 1 Meningococcal B, OMV 2017-05-25 Completed NPI: [id number] 00:00:00 1 Meningococcal 2017-05-25 Completed NPI:[id number] 78 Polysaccharide (groups 00:00:00 1 A, C, Y and W-135) conjugate vaccine (MCV4P) Influenza Virus 2017-05-25 Completed NPI:[id number] Vaccine Quad IM 3+ YRS 00:00:00 1 Meningococcal B, OMV 2017-05-25 Completed NPI: [id number] 00:00:00 1 Meningococcal 2017-05-25 Completed NPI:[id number] 78 Polysaccharide (groups 00:00:00 1 A, C, Y and W-135) conjugate vaccine (MCV4P) Influenza Virus 2017-05-25 Completed NPI:[id number] Vaccine Quad IM 3+ YRS 00:00:00 1 Meningococcal B, OMV 2017-05-25 Completed NPI: [id number] 00:00:00 1 Meningococcal 2017-05-25 Completed NPI:[id number] 78 Polysaccharide (groups 00:00:00 1 A, C, Y and W-135) conjugate vaccine (MCV4P) Influenza Virus 2017-05-25 Completed NPI:[id number] Vaccine Quad IM 3+ YRS 00:00:00 1 Meningococcal B, OMV 2017-05-25 Completed NPI: [id number] 00:00:00 1 Meningococcal 2017-05-25 Completed NPI:[id number] 78 Polysaccharide (groups 00:00:00 1 A, C, Y and W-135) conjugate vaccine (MCV4P) Influenza Virus 2017-05-25 Completed NPI:[id number] Vaccine Quad IM 3+ YRS 00:00:00 1 Meningococcal B, OMV 2017-05-25 Completed NPI: [id number] 00:00:00 1 Meningococcal 2017-05-25 Completed NPI:[id number] 78 Polysaccharide (groups 00:00:00 1 A, C, Y and W-135) conjugate vaccine (MCV4P) Influenza Virus 2017-05-25 Completed NPI:[id number] Vaccine Quad IM 3+ YRS 00:00:00 1 Meningococcal B, OMV 2017-05-25 Completed NPI: [id number] 00:00:00 1 Meningococcal 2017-05-25 Completed NPI:[id number] 78 Polysaccharide (groups 00:00:00 1 A, C, Y and W-135) conjugate vaccine (MCV4P) Influenza Virus 2017-05-25 Completed NPI:[id number] Vaccine Quad IM 3+ YRS 00:00:00 1 Meningococcal B, OMV 2017-05-25 Completed NPI: [id number] 00:00:00 1 Meningococcal 2017-05-25 Completed NPI:[id number] 78 Polysaccharide (groups 00:00:00 1 A, C, Y and W-135) conjugate vaccine (MCV4P) Influenza Virus 2017-05-25 Completed NPI:[id number] Vaccine Quad IM 3+ YRS 00:00:00 1 Meningococcal B, OMV 2017-05-25 Completed NPI: [id number] 00:00:00 1 Meningococcal 2017-05-25 Completed NPI:[id number] 78 Polysaccharide (groups 00:00:00 1 A, C, Y and W-135) conjugate vaccine (MCV4P) Influenza Virus 2017-05-25 Completed NPI:[id number] Vaccine Quad IM 3+ YRS 00:00:00 1 Meningococcal B, OMV 2017-05-25 Completed NPI: [id number] 00:00:00 1 Meningococcal 2017-05-25 Completed NPI:[id number] 78 Polysaccharide (groups 00:00:00 1 A, C, Y and W-135) conjugate vaccine (MCV4P) Influenza Virus 2017-05-25 Completed NPI:[id number] Vaccine Quad IM 3+ YRS 00:00:00 1 Meningococcal B, OMV 2017-05-25 Completed NPI: [id number] 00:00:00 1 Meningococcal 2017-05-25 Completed NPI:[id number] 78 Polysaccharide (groups 00:00:00 1 A, C, Y and W-135) conjugate vaccine (MCV4P) Influenza Virus 2017-05-25 Completed NPI:[id number] Vaccine Quad IM 3+ YRS 00:00:00 1 Meningococcal B, OMV 2017-05-25 Completed NPI: [id number] 00:00:00 1 Meningococcal 2017-05-25 Completed NPI:[id number] 78 Polysaccharide (groups 00:00:00 1 A, C, Y and W-135) conjugate vaccine (MCV4P) Influenza Virus 2017-05-25 Completed NPI:[id number] Vaccine Quad IM 3+ YRS 00:00:00 1 Meningococcal B, OMV 2017-05-25 Completed NPI: [id number] 00:00:00 1 Meningococcal 2017-05-25 Completed NPI:[id number] 78 Polysaccharide (groups 00:00:00 1 A, C, Y and W-135) conjugate vaccine (MCV4P) Influenza Virus 2017-05-25 Completed NPI:[id number] Vaccine Quad IM 3+ YRS 00:00:00 1 Meningococcal B, OMV 2017-05-25 Completed NPI: [id number] 00:00:00 1 Meningococcal 2017-05-25 Completed NPI:[id number] 78 Polysaccharide (groups 00:00:00 1 A, C, Y and W-135) conjugate vaccine (MCV4P) Influenza Virus 2017-05-25 Completed NPI:[id number] Vaccine Quad IM 3+ YRS 00:00:00 1 Meningococcal B, OMV 2017-05-25 Completed NPI: [id number] 00:00:00 1 Meningococcal 2017-05-25 Completed NPI:[id number] 78 Polysaccharide (groups 00:00:00 1 A, C, Y and W-135) conjugate vaccine (MCV4P) Influenza Virus 2017-05-25 Completed NPI:[id number] Vaccine Quad IM 3+ YRS 00:00:00 1 Meningococcal B, OMV 2017-05-25 Completed NPI: [id number] 00:00:00 1 Meningococcal 2017-05-25 Completed NPI:[id number] 78 Polysaccharide (groups 00:00:00 1 A, C, Y and W-135) conjugate vaccine (MCV4P) Influenza Virus 2017-05-25 Completed NPI:[id number] Vaccine Quad IM 3+ YRS 00:00:00 1 Meningococcal B, OMV 2017-05-25 Completed NPI: [id number] 00:00:00 1 Meningococcal 2017-05-25 Completed NPI:[id number] 78 Polysaccharide (groups 00:00:00 1 A, C, Y and W-135) conjugate vaccine (MCV4P) Influenza Virus 2017-05-25 Completed NPI:[id number] Vaccine Quad IM 3+ YRS 00:00:00 1 Meningococcal B, OMV 2017-05-25 Completed NPI: [id number] 00:00:00 1 Meningococcal 2017-05-25 Completed NPI:[id number] 78 Polysaccharide (groups 00:00:00 1 A, C, Y and W-135) conjugate vaccine (MCV4P) Influenza Virus 2017-05-25 Completed NPI:[id number] Vaccine Quad IM 3+ YRS 00:00:00 1 Meningococcal B, OMV 2017-05-25 Completed NPI: [id number] 00:00:00 1 TDAP 2016-09-10 Completed NPI:[id number] 00:00:00 1 HPV9 2016-09-10 Completed NPI:[id number] 00:00:00 1 Meningococcal 2016-09-10 Completed NPI:[id number] 78 Polysaccharide (groups 00:00:00 1 A, C, Y and W-135) conjugate vaccine (MCV4P) TDAP 2016-09-10 Completed NPI:[id number] 00:00:00 1 HPV9 2016-09-10 Completed NPI:[id number] 00:00:00 1 Meningococcal 2016-09-10 Completed NPI:[id number] 78 Polysaccharide (groups 00:00:00 1 A, C, Y and W-135) conjugate vaccine (MCV4P) TDAP 2016-09-10 Completed NPI:[id number] 00:00:00 1 HPV9 2016-09-10 Completed NPI:[id number] 00:00:00 1 Meningococcal 2016-09-10 Completed NPI:[id number] 78 Polysaccharide (groups 00:00:00 1 A, C, Y and W-135) conjugate vaccine (MCV4P) Tdap 2016-09-10 Completed NPI:[id number] 00:00:00 1 HPV9 2016-09-10 Completed NPI:[id number] 00:00:00 1 Meningococcal 2016-09-10 Completed NPI:[id number] 78 Polysaccharide (groups 00:00:00 1 A, C, Y and W-135) conjugate vaccine (MCV4P) TDAP 2016-09-10 Completed NPI:[id number] 00:00:00 1 HPV9 2016-09-10 Completed NPI:[id number] 00:00:00 1 Meningococcal 2016-09-10 Completed NPI:[id number] 78 Polysaccharide (groups 00:00:00 1 A, C, Y and W-135) conjugate vaccine (MCV4P) TDAP 2016-09-10 Completed NPI:[id number] 00:00:00 1 HPV9 2016-09-10 Completed NPI:[id number] 00:00:00 1 Meningococcal 2016-09-10 Completed NPI:[id number] 78 Polysaccharide (groups 00:00:00 1 A, C, Y and W-135) conjugate vaccine (MCV4P) TDAP 2016-09-10 Completed NPI:[id number] 00:00:00 1 HPV9 2016-09-10 Completed NPI:[id number] 00:00:00 1 Meningococcal 2016-09-10 Completed NPI:[id number] 78 Polysaccharide (groups 00:00:00 1 A, C, Y and W-135) conjugate vaccine (MCV4P) TDAP 2016-09-10 Completed NPI:[id number] 00:00:00 1 HPV9 2016-09-10 Completed NPI:[id number] 00:00:00 1 Meningococcal 2016-09-10 Completed NPI:[id number] 78 Polysaccharide (groups 00:00:00 1 A, C, Y and W-135) conjugate vaccine (MCV4P) TDAP 2016-09-10 Completed NPI:[id number] 00:00:00 1 HPV9 2016-09-10 Completed NPI:[id number] 00:00:00 1 Meningococcal 2016-09-10 Completed NPI:[id number] 78 Polysaccharide (groups 00:00:00 1 A, C, Y and W-135) conjugate vaccine (MCV4P) TDAP 2016-09-10 Completed NPI:[id number] 00:00:00 1 HPV9 2016-09-10 Completed NPI:[id number] 00:00:00 1 Meningococcal 2016-09-10 Completed NPI:[id number] 78 Polysaccharide (groups 00:00:00 1 A, C, Y and W-135) conjugate vaccine (MCV4P) TDAP 2016-09-10 Completed NPI:[id number] 00:00:00 1 HPV9 2016-09-10 Completed NPI:[id number] 00:00:00 1 Meningococcal 2016-09-10 Completed NPI:[id number] 78 Polysaccharide (groups 00:00:00 1 A, C, Y and W-135) conjugate vaccine (MCV4P) TDAP 2016-09-10 Completed NPI:[id number] 00:00:00 1 HPV9 2016-09-10 Completed NPI:[id number] 00:00:00 1 Meningococcal 2016-09-10 Completed NPI:[id number] 78 Polysaccharide (groups 00:00:00 1 A, C, Y and W-135) conjugate vaccine (MCV4P) TDAP 2016-09-10 Completed NPI:[id number] 00:00:00 1 HPV9 2016-09-10 Completed NPI:[id number] 00:00:00 1 Meningococcal 2016-09-10 Completed NPI:[id number] 78 Polysaccharide (groups 00:00:00 1 A, C, Y and W-135) conjugate vaccine (MCV4P) TDAP 2016-09-10 Completed NPI:[id number] 00:00:00 1 HPV9 2016-09-10 Completed NPI:[id number] 00:00:00 1 Meningococcal 2016-09-10 Completed NPI:[id number] 78 Polysaccharide (groups 00:00:00 1 A, C, Y and W-135) conjugate vaccine (MCV4P) HPV9 2016-09-10 Completed NPI:[id number] 00:00:00 1 Meningococcal 2016-09-10 Completed NPI:[id number] 78 Polysaccharide (groups 00:00:00 1 A, C, Y and W-135) conjugate vaccine (MCV4P) TDAP 2016-09-10 Completed NPI:[id number] 00:00:00 1 Tdap 2016-09-10 Completed NPI:[id number] 00:00:00 1 HPV9 2016-09-10 Completed NPI:[id number] 00:00:00 1 Meningococcal 2016-09-10 Completed NPI:[id number] 78 Polysaccharide (groups 00:00:00 1 A, C, Y and W-135) conjugate vaccine (MCV4P) TDAP 2016-09-10 Completed NPI:[id number] 00:00:00 1 HPV9 2016-09-10 Completed NPI:[id number] 00:00:00 1 Meningococcal 2016-09-10 Completed NPI:[id number] 78 Polysaccharide (groups 00:00:00 1 A, C, Y and W-135) conjugate vaccine (MCV4P) TDAP 2016-09-10 Completed NPI:[id number] 00:00:00 1 HPV9 2016-09-10 Completed NPI:[id number] 00:00:00 1 Meningococcal 2016-09-10 Completed NPI:[id number] 78 Polysaccharide (groups 00:00:00 1 A, C, Y and W-135) conjugate vaccine (MCV4P) TDAP 2016-09-10 Completed NPI:[id number] 00:00:00 1 HPV9 2016-09-10 Completed NPI:[id number] 00:00:00 1 Meningococcal 2016-09-10 Completed NPI:[id number] 78 Polysaccharide (groups 00:00:00 1 A, C, Y and W-135) conjugate vaccine (MCV4P) TDAP 2016-09-10 Completed NPI:[id number] 00:00:00 1 HPV9 2016-09-10 Completed NPI:[id number] 00:00:00 1 Meningococcal 2016-09-10 Completed NPI:[id number] 78 Polysaccharide (groups 00:00:00 1 A, C, Y and W-135) conjugate vaccine (MCV4P) TDAP 2016-09-10 Completed NPI:[id number] 00:00:00 1 HPV9 2016-09-10 Completed NPI:[id number] 00:00:00 1 Meningococcal 2016-09-10 Completed NPI:[id number] 78 Polysaccharide (groups 00:00:00 1 A, C, Y and W-135) conjugate vaccine (MCV4P) TDAP 2016-09-10 Completed NPI:[id number] 00:00:00 1 HPV9 2016-09-10 Completed NPI:[id number] 00:00:00 1 Meningococcal 2016-09-10 Completed NPI:[id number] 78 Polysaccharide (groups 00:00:00 1 A, C, Y and W-135) conjugate vaccine (MCV4P) TDAP 2016-09-10 Completed NPI:[id number] 00:00:00 1 HPV9 2016-09-10 Completed NPI:[id number] 00:00:00 1 Meningococcal 2016-09-10 Completed NPI:[id number] 78 Polysaccharide (groups 00:00:00 1 A, C, Y and W-135) conjugate vaccine (MCV4P) TDAP 2016-09-10 Completed NPI:[id number] 00:00:00 1 HPV9 2016-09-10 Completed NPI:[id number] 00:00:00 1 Meningococcal 2016-09-10 Completed NPI:[id number] 78 Polysaccharide (groups 00:00:00 1 A, C, Y and W-135) conjugate vaccine (MCV4P) HPV9 2016-09-10 Completed NPI:[id number] 00:00:00 1 Tdap 2016-09-10 Completed NPI:[id number] 00:00:00 1 Meningococcal 2016-09-10 Completed NPI:[id number] 78 Polysaccharide (groups 00:00:00 1 A, C, Y and W-135) conjugate vaccine (MCV4P) TDAP 2016-09-10 Completed NPI:[id number] 00:00:00 1 HPV9 2016-09-10 Completed NPI:[id number] 00:00:00 1 Meningococcal 2016-09-10 Completed NPI:[id number] 78 Polysaccharide (groups 00:00:00 1 A, C, Y and W-135) conjugate vaccine (MCV4P) TDAP 2016-09-10 Completed NPI:[id number] 00:00:00 1 HPV9 2016-09-10 Completed NPI:[id number] 00:00:00 1 Meningococcal 2016-09-10 Completed NPI:[id number] 78 Polysaccharide (groups 00:00:00 1 A, C, Y and W-135) conjugate vaccine (MCV4P) TDAP 2016-09-10 Completed NPI:[id number] 00:00:00 1 HPV9 2016-09-10 Completed NPI:[id number] 00:00:00 1 Meningococcal 2016-09-10 Completed NPI:[id number] 78 Polysaccharide (groups 00:00:00 1 A, C, Y and W-135) conjugate vaccine (MCV4P) TDAP 2016-09-10 Completed NPI:[id number] 00:00:00 1 HPV9 2016-09-10 Completed NPI:[id number] 00:00:00 1 Meningococcal 2016-09-10 Completed NPI:[id number] 78 Polysaccharide (groups 00:00:00 1 A, C, Y and W-135) conjugate vaccine (MCV4P) TDAP 2016-09-10 Completed NPI:[id number] 00:00:00 1 HPV9 2016-09-10 Completed NPI:[id number] 00:00:00 1 Meningococcal 2016-09-10 Completed NPI:[id number] Polysaccharide (groups 00:00:00 1 A, C, Y and W-135) conjugate vaccine (MCV4P) Tdap 2016-09-10 Completed NPI:[id number] 00:00:00 1 HPV9 2016-09-10 Completed NPI:[id number] 00:00:00 1 Meningococcal 2016-09-10 Completed NPI:[id number] Polysaccharide (groups 00:00:00 1 A, C, Y and W-135) conjugate vaccine (MCV4P) Tdap 2016-09-10 Completed NPI:[id number] 00:00:00 1 HPV9 2016-09-10 Completed NPI:[id number] 00:00:00 1 Meningococcal 2016-09-10 Completed NPI:[id number] Polysaccharide (groups 00:00:00 1 A, C, Y and W-135) conjugate vaccine (MCV4P) Tdap 2016-09-10 Completed NPI:[id number] 00:00:00 1 HPV9 2016-09-10 Completed NPI:[id number] 00:00:00 1 Meningococcal 2016-09-10 Completed NPI:[id number] Polysaccharide (groups 00:00:00 1 A, C, Y and W-135) conjugate vaccine (MCV4P) TDAP 2016-09-10 Completed NPI:[id number] 00:00:00 1 HPV9 2016-09-10 Completed NPI:[id number] 00:00:00 1 Meningococcal 2016-09-10 Completed NPI:[id number] Polysaccharide (groups 00:00:00 1 A, C, Y and W-135) conjugate vaccine (MCV4P) TDAP 2016-09-10 Completed NPI:[id number] 00:00:00 1 HPV9 2016-09-10 Completed NPI:[id number] 00:00:00 1 Meningococcal 2016-09-10 Completed NPI:[id number] 78 Polysaccharide (groups 00:00:00 1 A, C, Y and W-135) conjugate vaccine (MCV4P) TDAP 2016-09-10 Completed NPI:[id number] 00:00:00 1 HPV9 2016-09-10 Completed NPI:[id number] 00:00:00 1 Meningococcal 2016-09-10 Completed NPI:[id number] Polysaccharide (groups 00:00:00 1 A, C, Y and W-135) conjugate vaccine (MCV4P) TDAP 2016-09-10 Completed NPI:[id number] 00:00:00 1 HPV9 2016-09-10 Completed NPI:[id number] 00:00:00 1 Meningococcal 2016-09-10 Completed NPI:[id number] Polysaccharide (groups 00:00:00 1 A, C, Y and W-135) conjugate vaccine (MCV4P) TDAP 2016-09-10 Completed NPI:[id number] 00:00:00 1 HPV9 2016-09-10 Completed NPI:[id number] 00:00:00 1 Meningococcal 2016-09-10 Completed NPI:[id number] 78 Polysaccharide (groups 00:00:00 1 A, C, Y and W-135) conjugate vaccine (MCV4P) TDAP 2016-09-10 Completed NPI:[id number] 00:00:00 1 HPV9 2016-09-10 Completed NPI:[id number] 00:00:00 1 Meningococcal 2016-09-10 Completed NPI:[id number] 78 Polysaccharide (groups 00:00:00 1 A, C, Y and W-135) conjugate vaccine (MCV4P) TDAP 2016-09-10 Completed NPI:[id number] 00:00:00 1 HPV9 2016-09-10 Completed NPI:[id number] 00:00:00 1 Meningococcal 2016-09-10 Completed NPI:[id number] 78 Polysaccharide (groups 00:00:00 1 A, C, Y and W-135) conjugate vaccine (MCV4P) TDAP 2016-09-10 Completed NPI:[id number] 00:00:00 1 HPV9 2016-09-10 Completed NPI:[id number] 00:00:00 1 Meningococcal 2016-09-10 Completed NPI:[id number] Polysaccharide (groups 00:00:00 1 A, C, Y and W-135) conjugate vaccine (MCV4P) TDAP 2016-09-10 Completed NPI:[id number] 00:00:00 1 HPV9 2016-09-10 Completed NPI:[id number] 00:00:00 1 Meningococcal 2016-09-10 Completed NPI:[id number] 78 Polysaccharide (groups 00:00:00 1 A, C, Y and W-135) conjugate vaccine (MCV4P) TDAP 2016-09-10 Completed NPI:[id number] 00:00:00 1 HPV9 2016-09-10 Completed NPI:[id number] 00:00:00 1 Meningococcal 2016-09-10 Completed NPI:[id number] 78 Polysaccharide (groups 00:00:00 1 A, C, Y and W-135) conjugate vaccine (MCV4P) TDAP 2016-09-10 Completed NPI:[id number] 00:00:00 1 HPV9 2016-09-10 Completed NPI:[id number] 00:00:00 1 Meningococcal 2016-09-10 Completed NPI:[id number] 78 Polysaccharide (groups 00:00:00 1 A, C, Y and W-135) conjugate vaccine (MCV4P) TDAP 2016-09-10 Completed NPI:[id number] 00:00:00 1 HPV9 2016-09-10 Completed NPI:[id number] 00:00:00 1 Meningococcal 2016-09-10 Completed NPI:[id number] 78 Polysaccharide (groups 00:00:00 1 A, C, Y and W-135) conjugate vaccine (MCV4P) TDAP 2016-09-10 Completed NPI:[id number] 00:00:00 1 HPV9 2016-09-10 Completed NPI:[id number] 00:00:00 1 Meningococcal 2016-09-10 Completed NPI:[id number] 78 Polysaccharide (groups 00:00:00 1 A, C, Y and W-135) conjugate vaccine (MCV4P) TDAP 2016-09-10 Completed NPI:[id number] 00:00:00 1 HPV9 2016-09-10 Completed NPI:[id number] 00:00:00 1 Meningococcal 2016-09-10 Completed NPI:[id number] 78 Polysaccharide (groups 00:00:00 1 A, C, Y and W-135) conjugate vaccine (MCV4P) TDAP 2016-09-10 Completed NPI:[id number] 00:00:00 1 HPV9 2016-09-10 Completed NPI:[id number] 00:00:00 1 Meningococcal 2016-09-10 Completed NPI:[id number] 78 Polysaccharide (groups 00:00:00 1 A, C, Y and W-135) conjugate vaccine (MCV4P) TDAP 2016-09-10 Completed NPI:[id number] 00:00:00 1 HPV9 2016-09-10 Completed NPI:[id number] 00:00:00 1 Meningococcal 2016-09-10 Completed NPI:[id number] 78 Polysaccharide (groups 00:00:00 1 A, C, Y and W-135) conjugate vaccine (MCV4P) TDAP 2016-09-10 Completed NPI:[id number] 00:00:00 1 HPV9 2016-09-10 Completed NPI:[id number] 00:00:00 1 Meningococcal 2016-09-10 Completed NPI:[id number] 78 Polysaccharide (groups 00:00:00 1 A, C, Y and W-135) conjugate vaccine (MCV4P) HPV 2010-03-03 Completed NPI:[id number] 00:00:00 1 Influenza Virus 2010-03-03 Completed NPI:36497 1878 Vaccine 00:00:00 1 HPV 2010-03-03 Completed NPI:[id number] 00:00:00 1 Influenza Virus 2010-03-03 Completed NPI:27397 1878 Vaccine 00:00:00 1 HPV 2010-03-03 Completed NPI:[id number] 00:00:00 1 Influenza Virus 2010-03-03 Completed NPI:86660 1878 Vaccine 00:00:00 1 HPV 2010-03-03 Completed NPI:[id number] 00:00:00 1 Influenza Virus 2010-03-03 Completed NPI:15825 1878 Vaccine 00:00:00 1 HPV 2010-03-03 Completed NPI:[id number] 00:00:00 1 HPV 2010-03-03 Completed NPI:[id number] 00:00:00 1 Influenza Virus 2010-03-03 Completed NPI:74313 1878 Vaccine 00:00:00 1 Influenza Virus 2010-03-03 Completed NPI:53504 1878 Vaccine 00:00:00 1 HPV 2010-03-03 Completed NPI:[id number] 00:00:00 1 Influenza Virus 2010-03-03 Completed NPI:59735 1878 Vaccine 00:00:00 1 HPV 2010-03-03 Completed NPI:[id number] 00:00:00 1 Influenza Virus 2010-03-03 Completed NPI:74847 1878 Vaccine 00:00:00 1 HPV 2010-03-03 Completed NPI:[id number] 00:00:00 1 Influenza Virus 2010-03-03 Completed NPI:66753 1878 Vaccine 00:00:00 1 HPV 2010-03-03 Completed NPI:[id number] 00:00:00 1 Influenza Virus 2010-03-03 Completed NPI:81452 1878 Vaccine 00:00:00 1 HPV 2010-03-03 Completed NPI:[id number] 00:00:00 1 Influenza Virus 2010-03-03 Completed NPI:02049 1878 Vaccine 00:00:00 1 HPV 2010-03-03 Completed NPI:[id number] 00:00:00 1 Influenza Virus 2010-03-03 Completed NPI:07047 1878 Vaccine 00:00:00 1 HPV 2010-03-03 Completed NPI:[id number] 00:00:00 1 Influenza Virus 2010-03-03 Completed NPI:03433 1878 Vaccine 00:00:00 1 HPV 2010-03-03 Completed NPI:[id number] 00:00:00 1 Influenza Virus 2010-03-03 Completed NPI:40655 1878 Vaccine 00:00:00 1 HPV 2010-03-03 Completed NPI:[id number] 00:00:00 1 HPV 2010-03-03 Completed NPI:[id number] 00:00:00 1 Influenza Virus 2010-03-03 Completed NPI:65725 1878 Vaccine 00:00:00 1 Influenza Virus 2010-03-03 Completed NPI:27720 1878 Vaccine 00:00:00 1 HPV 2010-03-03 Completed NPI:[id number] 00:00:00 1 Influenza Virus 2010-03-03 Completed NPI:36933 1878 Vaccine 00:00:00 1 HPV 2010-03-03 Completed NPI:[id number] 00:00:00 1 Influenza Virus 2010-03-03 Completed NPI:63557 1878 Vaccine 00:00:00 1 HPV 2010-03-03 Completed NPI:[id number] 00:00:00 1 Influenza Virus 2010-03-03 Completed NPI:08299 1878 Vaccine 00:00:00 1 HPV 2010-03-03 Completed NPI:[id number] 00:00:00 1 Influenza Virus 2010-03-03 Completed NPI:32561 1878 Vaccine 00:00:00 1 HPV 2010-03-03 Completed NPI:[id number] 00:00:00 1 Influenza Virus 2010-03-03 Completed NPI:83680 1878 Vaccine 00:00:00 1 HPV 2010-03-03 Completed NPI:[id number] 00:00:00 1 Influenza Virus 2010-03-03 Completed NPI:52576 1878 Vaccine 00:00:00 1 HPV 2010-03-03 Completed NPI:[id number] 00:00:00 1 Influenza Virus 2010-03-03 Completed NPI:70077 1878 Vaccine 00:00:00 1 HPV 2010-03-03 Completed NPI:[id number] 00:00:00 1 Influenza Virus 2010-03-03 Completed NPI:97317 1878 Vaccine 00:00:00 1 HPV 2010-03-03 Completed NPI:[id number] 00:00:00 1 Influenza Virus 2010-03-03 Completed NPI:61522 1878 Vaccine 00:00:00 1 HPV 2010-03-03 Completed NPI:[id number] 00:00:00 1 Influenza Virus 2010-03-03 Completed NPI:92700 1878 Vaccine 00:00:00 1 HPV 2010-03-03 Completed NPI:[id number] 00:00:00 1 Influenza Virus 2010-03-03 Completed NPI:94194 1878 Vaccine 00:00:00 1 HPV 2010-03-03 Completed NPI:[id number] 00:00:00 1 Influenza Virus 2010-03-03 Completed NPI:23559 1878 Vaccine 00:00:00 1 HPV 2010-03-03 Completed NPI:[id number] 00:00:00 1 Influenza Virus 2010-03-03 Completed NPI:88271 1878 Vaccine 00:00:00 1 HPV 2010-03-03 Completed NPI:[id number] 00:00:00 1 Influenza Virus 2010-03-03 Completed NPI:62608 1878 Vaccine 00:00:00 1 HPV 2010-03-03 Completed NPI:[id number] 00:00:00 1 Influenza Virus 2010-03-03 Completed NPI:54081 1878 Vaccine 00:00:00 1 HPV 2010-03-03 Completed NPI:[id number] 00:00:00 1 Influenza Virus 2010-03-03 Completed NPI:46514 1878 Vaccine 00:00:00 1 HPV 2010-03-03 Completed NPI:[id number] 00:00:00 1 Influenza Virus 2010-03-03 Completed NPI:99641 1878 Vaccine 00:00:00 1 HPV 2010-03-03 Completed NPI:[id number] 00:00:00 1 Influenza Virus 2010-03-03 Completed NPI:51508 1878 Vaccine 00:00:00 1 HPV 2010-03-03 Completed NPI:[id number] 00:00:00 1 Influenza Virus 2010-03-03 Completed NPI:97728 1878 Vaccine 00:00:00 1 HPV 2010-03-03 Completed NPI:[id number] 00:00:00 1 Influenza Virus 2010-03-03 Completed NPI:99314 1878 Vaccine 00:00:00 1 HPV 2010-03-03 Completed NPI:[id number] 00:00:00 1 Influenza Virus 2010-03-03 Completed NPI:[id number] 1878 Vaccine 00:00:00 1 HPV 2010-03-03 Completed NPI:[id number] 00:00:00 1 Influenza Virus 2010-03-03 Completed NPI:63017 1878 Vaccine 00:00:00 1 HPV 2010-03-03 Completed NPI:[id number] 00:00:00 1 Influenza Virus 2010-03-03 Completed NPI:90629 1878 Vaccine 00:00:00 1 HPV 2010-03-03 Completed NPI:[id number] 00:00:00 1 Influenza Virus 2010-03-03 Completed NPI:94353 1878 Vaccine 00:00:00 1 HPV 2010-03-03 Completed NPI:[id number] 00:00:00 1 Influenza Virus 2010-03-03 Completed NPI:75497 1878 Vaccine 00:00:00 1 HPV 2010-03-03 Completed NPI:[id number] 00:00:00 1 Influenza Virus 2010-03-03 Completed NPI:[id number] 1878 Vaccine 00:00:00 1 HPV 2010-03-03 Completed NPI:[id number] 00:00:00 1 Influenza Virus 2010-03-03 Completed NPI:30926 1878 Vaccine 00:00:00 1 HPV 2010-03-03 Completed NPI:[id number] 00:00:00 1 Influenza Virus 2010-03-03 Completed NPI:79909 1878 Vaccine 00:00:00 1 HPV 2010-03-03 Completed NPI:[id number] 00:00:00 1 Influenza Virus 2010-03-03 Completed NPI:37042 1878 Vaccine 00:00:00 1 HPV 2010-03-03 Completed NPI:[id number] 00:00:00 1 Influenza Virus 2010-03-03 Completed NPI:73441 1878 Vaccine 00:00:00 1 HPV 2010-03-03 Completed NPI:[id number] 00:00:00 1 Influenza Virus 2010-03-03 Completed NPI:42118 1878 Vaccine 00:00:00 1 HPV 2010-03-03 Completed NPI:[id number] 00:00:00 1 Influenza Virus 2010-03-03 Completed NPI:80276 1878 Vaccine 00:00:00 1 HPV 2010-03-03 Completed NPI:[id number] 00:00:00 1 Influenza Virus 2010-03-03 Completed NPI:03734 1878 Vaccine 00:00:00 1 HPV 2010-03-03 Completed NPI:[id number] 00:00:00 1 Influenza Virus 2010-03-03 Completed NPI:85511 1878 Vaccine 00:00:00 1 Varicella 2008-11-15 Completed NPI:[id number] (varivax)(chicken pox) 00:00:00 1 Varicella 2008-11-15 Completed NPI:[id number] (varivax)(chicken pox) 00:00:00 1 Varicella 2008-11-15 Completed NPI:[id number] (varivax)(chicken pox) 00:00:00 1 Varicella 2008-11-15 Completed NPI:[id number] (varivax)(chicken pox) 00:00:00 1 Varicella 2008-11-15 Completed NPI:[id number] (varivax)(chicken pox) 00:00:00 1 Varicella 2008-11-15 Completed NPI:[id number] (varivax)(chicken pox) 00:00:00 1 Varicella 2008-11-15 Completed NPI:[id number] (varivax)(chicken pox) 00:00:00 1 Varicella 2008-11-15 Completed NPI:[id number] (varivax)(chicken pox) 00:00:00 1 Varicella 2008-11-15 Completed NPI:[id number] (varivax)(chicken pox) 00:00:00 1 Varicella 2008-11-15 Completed NPI:[id number] (varivax)(chicken pox) 00:00:00 1 Varicella 2008-11-15 Completed NPI:[id number] (varivax)(chicken pox) 00:00:00 1 Varicella 2008-11-15 Completed NPI:[id number] (varivax)(chicken pox) 00:00:00 1 Varicella 2008-11-15 Completed NPI:[id number] (varivax)(chicken pox) 00:00:00 1 Varicella 2008-11-15 Completed NPI:[id number] (varivax)(chicken pox) 00:00:00 1 Varicella 2008-11-15 Completed NPI:[id number] (varivax)(chicken pox) 00:00:00 1 Varicella 2008-11-15 Completed NPI:[id number] (varivax)(chicken pox) 00:00:00 1 Varicella 2008-11-15 Completed NPI:[id number] (varivax)(chicken pox) 00:00:00 1 Varicella 2008-11-15 Completed NPI:[id number] (varivax)(chicken pox) 00:00:00 1 Varicella 2008-11-15 Completed NPI:[id number] (varivax)(chicken pox) 00:00:00 1 Varicella 2008-11-15 Completed NPI:[id number] (varivax)(chicken pox) 00:00:00 1 Varicella 2008-11-15 Completed NPI:[id number] (varivax)(chicken pox) 00:00:00 1 Varicella 2008-11-15 Completed NPI:[id number] (varivax)(chicken pox) 00:00:00 1 Varicella 2008-11-15 Completed NPI:[id number] (varivax)(chicken pox) 00:00:00 1 Varicella 2008-11-15 Completed NPI:[id number] (varivax)(chicken pox) 00:00:00 1 Varicella 2008-11-15 Completed NPI:[id number] (varivax)(chicken pox) 00:00:00 1 Varicella 2008-11-15 Completed NPI:[id number] (varivax)(chicken pox) 00:00:00 Varicella 2008-11-15 Completed NPI:[id number] (varivax)(chicken pox) 00:00:00 1 Varicella 2008-11-15 Completed NPI:[id number] (varivax)(chicken pox) 00:00:00 1 Varicella 2008-11-15 Completed NPI:[id number] (varivax)(chicken pox) 00:00:00 1 Varicella 2008-11-15 Completed NPI:[id number] (varivax)(chicken pox) 00:00:00 1 Varicella 2008-11-15 Completed NPI:[id number] (varivax)(chicken pox) 00:00:00 1 Varicella 2008-11-15 Completed NPI:[id number] (varivax)(chicken pox) 00:00:00 1 Varicella 2008-11-15 Completed NPI:[id number] (varivax)(chicken pox) 00:00:00 1 Varicella 2008-11-15 Completed NPI:[id number] (varivax)(chicken pox) 00:00:00 1 Varicella 2008-11-15 Completed NPI:[id number] (varivax)(chicken pox) 00:00:00 1 Varicella 2008-11-15 Completed NPI:[id number] (varivax)(chicken pox) 00:00:00 1 Varicella 2008-11-15 Completed NPI:[id number] (varivax)(chicken pox) 00:00:00 1 Varicella 2008-11-15 Completed NPI:[id number] (varivax)(chicken pox) 00:00:00 1 Varicella 2008-11-15 Completed NPI:[id number] (varivax)(chicken pox) 00:00:00 1 Varicella 2008-11-15 Completed NPI:[id number] (varivax)(chicken pox) 00:00:00 1 Varicella 2008-11-15 Completed NPI:[id number] (varivax)(chicken pox) 00:00:00 1 Varicella 2008-11-15 Completed NPI:[id number] (varivax)(chicken pox) 00:00:00 1 Varicella 2008-11-15 Completed NPI:[id number] (varivax)(chicken pox) 00:00:00 1 Varicella 2008-11-15 Completed NPI:[id number] (varivax)(chicken pox) 00:00:00 1 Varicella 2008-11-15 Completed NPI:[id number] (varivax)(chicken pox) 00:00:00 1 Varicella 2008-11-15 Completed NPI:[id number] (varivax)(chicken pox) 00:00:00 1 Varicella 2008-11-15 Completed NPI:[id number] (varivax)(chicken pox) 00:00:00 1 Varicella 2008-11-15 Completed NPI:[id number] (varivax)(chicken pox) 00:00:00 1 Varicella 2008-11-15 Completed NPI:[id number] (varivax)(chicken pox) 00:00:00 1 Varicella 2008-11-15 Completed NPI:[id number] (varivax)(chicken pox) 00:00:00 1 Influenza Virus 2007-06-02 Completed NPI:[id number] 1878 Vaccine 00:00:00 1 Influenza Virus 2007-06-02 Completed NPI:96194 1878 Vaccine 00:00:00 1 Influenza Virus 2007-06-02 Completed NPI:01899 1878 Vaccine 00:00:00 1 Influenza Virus 2007-06-02 Completed NPI:92549 1878 Vaccine 00:00:00 1 Influenza Virus 2007-06-02 Completed NPI:74170 1878 Vaccine 00:00:00 1 Influenza Virus 2007-06-02 Completed NPI:91119 1878 Vaccine 00:00:00 1 Influenza Virus 2007-06-02 Completed NPI:75290 1878 Vaccine 00:00:00 1 Influenza Virus 2007-06-02 Completed NPI:87974 1878 Vaccine 00:00:00 1 Influenza Virus 2007-06-02 Completed NPI:15125 1878 Vaccine 00:00:00 1 Influenza Virus 2007-06-02 Completed NPI:74818 1878 Vaccine 00:00:00 1 Influenza Virus 2007-06-02 Completed NPI:82592 1878 Vaccine 00:00:00 1 Influenza Virus 2007-06-02 Completed NPI:64677 1878 Vaccine 00:00:00 1 Influenza Virus 2007-06-02 Completed NPI:76211 1878 Vaccine 00:00:00 1 Influenza Virus 2007-06-02 Completed NPI:76384 1878 Vaccine 00:00:00 1 Influenza Virus 2007-06-02 Completed NPI:03511 1878 Vaccine 00:00:00 1 Influenza Virus 2007-06-02 Completed NPI:35006 1878 Vaccine 00:00:00 1 Influenza Virus 2007-06-02 Completed NPI:43709 1878 Vaccine 00:00:00 1 Influenza Virus 2007-06-02 Completed NPI:69548 1878 Vaccine 00:00:00 1 Influenza Virus 2007-06-02 Completed NPI:30186 1878 Vaccine 00:00:00 1 Influenza Virus 2007-06-02 Completed NPI:09558 1878 Vaccine 00:00:00 1 Influenza Virus 2007-06-02 Completed NPI:98822 1878 Vaccine 00:00:00 1 Influenza Virus 2007-06-02 Completed NPI:16006 1878 Vaccine 00:00:00 1 Influenza Virus 2007-06-02 Completed NPI:53106 1878 Vaccine 00:00:00 1 Influenza Virus 2007-06-02 Completed NPI:86691 1878 Vaccine 00:00:00 1 Influenza Virus 2007-06-02 Completed NPI:33560 1878 Vaccine 00:00:00 1 Influenza Virus 2007-06-02 Completed NPI:01170 1878 Vaccine 00:00:00 1 Influenza Virus 2007-06-02 Completed NPI:35073 1878 Vaccine 00:00:00 1 Influenza Virus 2007-06-02 Completed NPI:68314 1878 Vaccine 00:00:00 1 Influenza Virus 2007-06-02 Completed NPI:38253 1878 Vaccine 00:00:00 1 Influenza Virus 2007-06-02 Completed NPI:47694 1878 Vaccine 00:00:00 1 Influenza Virus 2007-06-02 Completed NPI:52088 1878 Vaccine 00:00:00 1 Influenza Virus 2007-06-02 Completed NPI:52407 1878 Vaccine 00:00:00 1 Influenza Virus 2007-06-02 Completed NPI:28577 1878 Vaccine 00:00:00 1 Influenza Virus 2007-06-02 Completed NPI:16690 1878 Vaccine 00:00:00 1 Influenza Virus 2007-06-02 Completed NPI:01738 1878 Vaccine 00:00:00 1 Influenza Virus 2007-06-02 Completed NPI:41637 1878 Vaccine 00:00:00 1 Influenza Virus 2007-06-02 Completed NPI:06688 1878 Vaccine 00:00:00 1 Influenza Virus 2007-06-02 Completed NPI:08310 1878 Vaccine 00:00:00 1 Influenza Virus 2007-06-02 Completed NPI:61318 1878 Vaccine 00:00:00 1 Influenza Virus 2007-06-02 Completed NPI:99133 1878 Vaccine 00:00:00 1 Influenza Virus 2007-06-02 Completed NPI:95745 1878 Vaccine 00:00:00 1 Influenza Virus 2007-06-02 Completed NPI:08031 1878 Vaccine 00:00:00 1 Influenza Virus 2007-06-02 Completed NPI:34785 1878 Vaccine 00:00:00 1 Influenza Virus 2007-06-02 Completed NPI:96909 1878 Vaccine 00:00:00 1 Influenza Virus 2007-06-02 Completed NPI:00782 1878 Vaccine 00:00:00 1 Influenza Virus 2007-06-02 Completed NPI:41511 1878 Vaccine 00:00:00 1 Influenza Virus 2007-06-02 Completed NPI:40240 1878 Vaccine 00:00:00 1 Influenza Virus 2007-06-02 Completed NPI:45313 1878 Vaccine 00:00:00 1 Influenza Virus 2007-06-02 Completed NPI:12937 1878 Vaccine 00:00:00 1 Influenza Virus 2007-06-02 Completed NPI:90596 1878 Vaccine 00:00:00 1 HEPATITIS A 2005-11-09 Completed NPI:[id number] 00:00:00 1 HEPATITIS A 2005-11-09 Completed NPI:[id number] 00:00:00 1 HEPATITIS A 2005-11-09 Completed NPI:[id number] 00:00:00 1 HEPATITIS A 2005-11-09 Completed NPI:[id number] 00:00:00 1 HEPATITIS A 2005-11-09 Completed NPI:[id number] 00:00:00 1 HEPATITIS A 2005-11-09 Completed NPI:[id number] 00:00:00 1 HEPATITIS A 2005-11-09 Completed NPI:[id number] 00:00:00 1 HEPATITIS A 2005-11-09 Completed NPI:[id number] 00:00:00 1 HEPATITIS A 2005-11-09 Completed NPI:[id number] 00:00:00 1 HEPATITIS A 2005-11-09 Completed NPI:[id number] 00:00:00 1 HEPATITIS A 2005-11-09 Completed NPI:[id number] 00:00:00 1 HEPATITIS A 2005-11-09 Completed NPI:[id number] 00:00:00 1 HEPATITIS A 2005-11-09 Completed NPI:[id number] 00:00:00 1 HEPATITIS A 2005-11-09 Completed NPI:[id number] 00:00:00 1 HEPATITIS A 2005-11-09 Completed NPI:[id number] 00:00:00 1 HEPATITIS A 2005-11-09 Completed NPI:[id number] 00:00:00 1 HEPATITIS A 2005-11-09 Completed NPI:[id number] 00:00:00 1 HEPATITIS A 2005-11-09 Completed NPI:[id number] 00:00:00 1 HEPATITIS A 2005-11-09 Completed NPI:[id number] 00:00:00 1 HEPATITIS A 2005-11-09 Completed NPI:[id number] 00:00:00 1 HEPATITIS A 2005-11-09 Completed NPI:[id number] 00:00:00 1 HEPATITIS A 2005-11-09 Completed NPI:[id number] 00:00:00 1 HEPATITIS A 2005-11-09 Completed NPI:[id number] 00:00:00 1 HEPATITIS A 2005-11-09 Completed NPI:[id number] 00:00:00 1 HEPATITIS A 2005-11-09 Completed NPI:[id number] 00:00:00 1 HEPATITIS A 2005-11-09 Completed NPI:[id number] 00:00:00 1 HEPATITIS A 2005-11-09 Completed NPI:[id number] 00:00:00 1 HEPATITIS A 2005-11-09 Completed NPI:[id number] 00:00:00 1 HEPATITIS A 2005-11-09 Completed NPI:[id number] 00:00:00 1 HEPATITIS A 2005-11-09 Completed NPI:[id number] 00:00:00 1 HEPATITIS A 2005-11-09 Completed NPI:[id number] 00:00:00 1 HEPATITIS A 2005-11-09 Completed NPI:[id number] 00:00:00 1 HEPATITIS A 2005-11-09 Completed NPI:[id number] 00:00:00 1 HEPATITIS A 2005-11-09 Completed NPI:[id number] 00:00:00 1 HEPATITIS A 2005-11-09 Completed NPI:[id number] 00:00:00 1 HEPATITIS A 2005-11-09 Completed NPI:[id number] 00:00:00 1 HEPATITIS A 2005-11-09 Completed NPI:[id number] 00:00:00 1 HEPATITIS A 2005-11-09 Completed NPI:[id number] 00:00:00 1 HEPATITIS A 2005-11-09 Completed NPI:[id number] 00:00:00 1 HEPATITIS A 2005-11-09 Completed NPI:[id number] 00:00:00 1 HEPATITIS A 2005-11-09 Completed NPI:[id number] 00:00:00 1 HEPATITIS A 2005-11-09 Completed NPI:[id number] 00:00:00 1 HEPATITIS A 2005-11-09 Completed NPI:[id number] 00:00:00 1 HEPATITIS A 2005-11-09 Completed NPI:[id number] 00:00:00 1 HEPATITIS A 2005-11-09 Completed NPI:[id number] 00:00:00 1 HEPATITIS A 2005-11-09 Completed NPI:[id number] 00:00:00 1 HEPATITIS A 2005-11-09 Completed NPI:[id number] 00:00:00 1 HEPATITIS A 2005-11-09 Completed NPI:[id number] 00:00:00 1 HEPATITIS A 2005-11-09 Completed NPI:[id number] 00:00:00 1 HEPATITIS A 2005-11-09 Completed NPI:[id number] 00:00:00 1 MMR 2005-06-21 Completed NPI:[id number] 00:00:00 1 DTAP 2005-06-21 Completed NPI:[id number] 00:00:00 1 MMR 2005-06-21 Completed NPI:[id number] 00:00:00 1 Polio (IPV/OPV) 2005-06-21 Completed NPI:[id number] 1878 00:00:00 1 Varicella 2005-06-21 Completed NPI:[id number] (varivax)(chicken pox) 00:00:00 1 Polio (IPV/OPV) 2005-06-21 Completed NPI:[id number] 1878 00:00:00 1 Varicella 2005-06-21 Completed NPI:[id number] (varivax)(chicken pox) 00:00:00 1 DTAP 2005-06-21 Completed NPI:[id number] 00:00:00 1 MMR 2005-06-21 Completed NPI:[id number] 00:00:00 1 Polio (IPV/OPV) 2005-06-21 Completed NPI:[id number] 1878 00:00:00 1 Varicella 2005-06-21 Completed NPI:[id number] (varivax)(chicken pox) 00:00:00 1 DTAP 2005-06-21 Completed NPI:[id number] 00:00:00 1 MMR 2005-06-21 Completed NPI:[id number] 00:00:00 1 Polio (IPV/OPV) 2005-06-21 Completed NPI:[id number] 1878 00:00:00 1 Varicella 2005-06-21 Completed NPI:[id number] (varivax)(chicken pox) 00:00:00 1 DTAP 2005-06-21 Completed NPI:[id number] 00:00:00 1 MMR 2005-06-21 Completed NPI:[id number] 00:00:00 1 Polio (IPV/OPV) 2005-06-21 Completed NPI:[id number] 1878 00:00:00 1 Varicella 2005-06-21 Completed NPI:[id number] (varivax)(chicken pox) 00:00:00 1 DTAP 2005-06-21 Completed NPI:[id number] 00:00:00 1 MMR 2005-06-21 Completed NPI:[id number] 00:00:00 1 Polio (IPV/OPV) 2005-06-21 Completed NPI:[id number] 1878 00:00:00 1 Varicella 2005-06-21 Completed NPI:[id number] (varivax)(chicken pox) 00:00:00 1 DTAP 2005-06-21 Completed NPI:[id number] 00:00:00 1 MMR 2005-06-21 Completed NPI:[id number] 00:00:00 1 Polio (IPV/OPV) 2005-06-21 Completed NPI:[id number] 1878 00:00:00 1 Varicella 2005-06-21 Completed NPI:[id number] (varivax)(chicken pox) 00:00:00 1 DTAP 2005-06-21 Completed NPI:[id number] 00:00:00 1 MMR 2005-06-21 Completed NPI:[id number] 00:00:00 1 Polio (IPV/OPV) 2005-06-21 Completed NPI:[id number] 00:00:00 1 Varicella 2005-06-21 Completed NPI:[id number] (varivax)(chicken pox) 00:00:00 1 DTAP 2005-06-21 Completed NPI:[id number] 00:00:00 1 DTAP 2005-06-21 Completed NPI:[id number] 00:00:00 1 MMR 2005-06-21 Completed NPI:[id number] 00:00:00 1 Polio (IPV/OPV) 2005-06-21 Completed NPI:[id number] 00:00:00 1 Varicella 2005-06-21 Completed NPI:[id number] (varivax)(chicken pox) 00:00:00 1 DTAP 2005-06-21 Completed NPI:[id number] 00:00:00 1 MMR 2005-06-21 Completed NPI:[id number] 00:00:00 1 Polio (IPV/OPV) 2005-06-21 Completed NPI:[id number] 00:00:00 1 Varicella 2005-06-21 Completed NPI:[id number] (varivax)(chicken pox) 00:00:00 1 DTAP 2005-06-21 Completed NPI:[id number] 00:00:00 1 MMR 2005-06-21 Completed NPI:[id number] 00:00:00 1 Polio (IPV/OPV) 2005-06-21 Completed NPI:[id number] 00:00:00 1 Varicella 2005-06-21 Completed NPI:[id number] (varivax)(chicken pox) 00:00:00 1 DTAP 2005-06-21 Completed NPI:[id number] 00:00:00 1 MMR 2005-06-21 Completed NPI:[id number] 00:00:00 1 MMR 2005-06-21 Completed NPI:[id number] 00:00:00 1 Polio (IPV/OPV) 2005-06-21 Completed NPI:[id number] 00:00:00 1 Varicella 2005-06-21 Completed NPI:[id number] (varivax)(chicken pox) 00:00:00 1 DTAP 2005-06-21 Completed NPI:[id number] 00:00:00 1 Polio (IPV/OPV) 2005-06-21 Completed NPI:[id number] 00:00:00 1 MMR 2005-06-21 Completed NPI:[id number] 00:00:00 1 Polio (IPV/OPV) 2005-06-21 Completed NPI:[id number] 00:00:00 1 Varicella 2005-06-21 Completed NPI:[id number] (varivax)(chicken pox) 00:00:00 1 Varicella 2005-06-21 Completed NPI:[id number] (varivax)(chicken pox) 00:00:00 1 DTAP 2005-06-21 Completed NPI:[id number] 00:00:00 1 MMR 2005-06-21 Completed NPI:[id number] 00:00:00 1 Polio (IPV/OPV) 2005-06-21 Completed NPI:[id number] 00:00:00 1 Varicella 2005-06-21 Completed NPI:[id number] (varivax)(chicken pox) 00:00:00 1 DTAP 2005-06-21 Completed NPI:[id number] 00:00:00 1 MMR 2005-06-21 Completed NPI:[id number] 00:00:00 1 Polio (IPV/OPV) 2005-06-21 Completed NPI:[id number] 00:00:00 1 Varicella 2005-06-21 Completed NPI:[id number] (varivax)(chicken pox) 00:00:00 1 DTAP 2005-06-21 Completed NPI:[id number] 00:00:00 1 MMR 2005-06-21 Completed NPI:[id number] 00:00:00 1 Polio (IPV/OPV) 2005-06-21 Completed NPI:[id number] 00:00:00 1 Varicella 2005-06-21 Completed NPI:[id number] (varivax)(chicken pox) 00:00:00 1 DTAP 2005-06-21 Completed NPI:[id number] 00:00:00 1 MMR 2005-06-21 Completed NPI:[id number] 00:00:00 1 Polio (IPV/OPV) 2005-06-21 Completed NPI:[id number] 00:00:00 1 Varicella 2005-06-21 Completed NPI:[id number] (varivax)(chicken pox) 00:00:00 1 DTAP 2005-06-21 Completed NPI:[id number] 00:00:00 1 DTAP 2005-06-21 Completed NPI:[id number] 00:00:00 1 MMR 2005-06-21 Completed NPI:[id number] 00:00:00 1 Polio (IPV/OPV) 2005-06-21 Completed NPI:[id number] 00:00:00 1 Varicella 2005-06-21 Completed NPI:[id number] (varivax)(chicken pox) 00:00:00 1 DTAP 2005-06-21 Completed NPI:[id number] 00:00:00 1 MMR 2005-06-21 Completed NPI:[id number] 00:00:00 1 Polio (IPV/OPV) 2005-06-21 Completed NPI:[id number] 00:00:00 1 Varicella 2005-06-21 Completed NPI:[id number] (varivax)(chicken pox) 00:00:00 1 DTAP 2005-06-21 Completed NPI:[id number] 00:00:00 1 MMR 2005-06-21 Completed NPI:[id number] 00:00:00 1 Polio (IPV/OPV) 2005-06-21 Completed NPI:[id number] 00:00:00 1 Varicella 2005-06-21 Completed NPI:[id number] (varivax)(chicken pox) 00:00:00 1 MMR 2005-06-21 Completed NPI:[id number] 00:00:00 1 DTAP 2005-06-21 Completed NPI:[id number] 00:00:00 1 MMR 2005-06-21 Completed NPI:[id number] 00:00:00 1 Polio (IPV/OPV) 2005-06-21 Completed NPI:[id number] 00:00:00 1 Varicella 2005-06-21 Completed NPI:[id number] (varivax)(chicken pox) 00:00:00 1 DTAP 2005-06-21 Completed NPI:[id number] 00:00:00 1 Polio (IPV/OPV) 2005-06-21 Completed NPI:[id number] 1878 00:00:00 1 Varicella 2005-06-21 Completed NPI:[id number] (varivax)(chicken pox) 00:00:00 1 MMR 2005-06-21 Completed NPI:[id number] 00:00:00 1 Polio (IPV/OPV) 2005-06-21 Completed NPI:[id number] 1878 00:00:00 1 Varicella 2005-06-21 Completed NPI:[id number] (varivax)(chicken pox) 00:00:00 1 DTAP 2005-06-21 Completed NPI:[id number] 00:00:00 1 MMR 2005-06-21 Completed NPI:[id number] 00:00:00 1 Polio (IPV/OPV) 2005-06-21 Completed NPI:[id number] 1878 00:00:00 1 Varicella 2005-06-21 Completed NPI:[id number] (varivax)(chicken pox) 00:00:00 1 DTAP 2005-06-21 Completed NPI:[id number] 00:00:00 1 MMR 2005-06-21 Completed NPI:[id number] 00:00:00 1 Polio (IPV/OPV) 2005-06-21 Completed NPI:[id number] 1878 00:00:00 1 Varicella 2005-06-21 Completed NPI:[id number] (varivax)(chicken pox) 00:00:00 1 DTAP 2005-06-21 Completed NPI:[id number] 00:00:00 1 MMR 2005-06-21 Completed NPI:[id number] 00:00:00 1 Polio (IPV/OPV) 2005-06-21 Completed NPI:[id number] 1878 00:00:00 1 Varicella 2005-06-21 Completed NPI:[id number] (varivax)(chicken pox) 00:00:00 1 DTAP 2005-06-21 Completed NPI:[id number] 00:00:00 1 MMR 2005-06-21 Completed NPI:[id number] 00:00:00 1 DTAP 2005-06-21 Completed NPI:[id number] 00:00:00 1 Polio (IPV/OPV) 2005-06-21 Completed NPI:[id number] 1878 00:00:00 1 Varicella 2005-06-21 Completed NPI:[id number] (varivax)(chicken pox) 00:00:00 1 DTAP 2005-06-21 Completed NPI:[id number] 00:00:00 1 MMR 2005-06-21 Completed NPI:[id number] 00:00:00 1 Polio (IPV/OPV) 2005-06-21 Completed NPI:[id number] 1878 00:00:00 1 Varicella 2005-06-21 Completed NPI:[id number] (varivax)(chicken pox) 00:00:00 1 MMR 2005-06-21 Completed NPI:[id number] 00:00:00 1 Polio (IPV/OPV) 2005-06-21 Completed NPI:[id number] 1878 00:00:00 1 Varicella 2005-06-21 Completed NPI:[id number] (varivax)(chicken pox) 00:00:00 1 DTAP 2005-06-21 Completed NPI:[id number] 00:00:00 1 MMR 2005-06-21 Completed NPI:[id number] 00:00:00 1 Polio (IPV/OPV) 2005-06-21 Completed NPI:[id number] 1878 00:00:00 1 Varicella 2005-06-21 Completed NPI:[id number] (varivax)(chicken pox) 00:00:00 1 DTAP 2005-06-21 Completed NPI:[id number] 00:00:00 1 MMR 2005-06-21 Completed NPI:[id number] 00:00:00 1 Polio (IPV/OPV) 2005-06-21 Completed NPI:[id number] 1878 00:00:00 1 Varicella 2005-06-21 Completed NPI:[id number] (varivax)(chicken pox) 00:00:00 1 DTAP 2005-06-21 Completed NPI:[id number] 00:00:00 1 MMR 2005-06-21 Completed NPI:[id number] 00:00:00 1 Polio (IPV/OPV) 2005-06-21 Completed NPI:[id number] 1878 00:00:00 1 Varicella 2005-06-21 Completed NPI:[id number] (varivax)(chicken pox) 00:00:00 1 DTAP 2005-06-21 Completed NPI:[id number] 00:00:00 1 MMR 2005-06-21 Completed NPI:[id number] 00:00:00 1 Polio (IPV/OPV) 2005-06-21 Completed NPI:[id number] 1878 00:00:00 1 Varicella 2005-06-21 Completed NPI:[id number] (varivax)(chicken pox) 00:00:00 1 DTAP 2005-06-21 Completed NPI:[id number] 00:00:00 1 MMR 2005-06-21 Completed NPI:[id number] 00:00:00 1 Polio (IPV/OPV) 2005-06-21 Completed NPI:[id number] 1878 00:00:00 1 Varicella 2005-06-21 Completed NPI:[id number] (varivax)(chicken pox) 00:00:00 1 DTAP 2005-06-21 Completed NPI:[id number] 00:00:00 1 MMR 2005-06-21 Completed NPI:[id number] 00:00:00 1 Polio (IPV/OPV) 2005-06-21 Completed NPI:[id number] 1878 00:00:00 1 Varicella 2005-06-21 Completed NPI:[id number] (varivax)(chicken pox) 00:00:00 1 DTAP 2005-06-21 Completed NPI:[id number] 00:00:00 1 MMR 2005-06-21 Completed NPI:[id number] 00:00:00 1 Polio (IPV/OPV) 2005-06-21 Completed NPI:[id number] 1878 00:00:00 1 Varicella 2005-06-21 Completed NPI:[id number] (varivax)(chicken pox) 00:00:00 1 DTAP 2005-06-21 Completed NPI:[id number] 00:00:00 1 MMR 2005-06-21 Completed NPI:[id number] 00:00:00 1 Polio (IPV/OPV) 2005-06-21 Completed NPI:[id number] 1878 00:00:00 1 Varicella 2005-06-21 Completed NPI:[id number] (varivax)(chicken pox) 00:00:00 1 DTAP 2005-06-21 Completed NPI:[id number] 00:00:00 1 MMR 2005-06-21 Completed NPI:[id number] 00:00:00 1 Polio (IPV/OPV) 2005-06-21 Completed NPI:[id number] 1878 00:00:00 1 Varicella 2005-06-21 Completed NPI:[id number] (varivax)(chicken pox) 00:00:00 1 DTAP 2005-06-21 Completed NPI:[id number] 00:00:00 1 MMR 2005-06-21 Completed NPI:[id number] 00:00:00 1 Polio (IPV/OPV) 2005-06-21 Completed NPI:[id number] 1878 00:00:00 1 Varicella 2005-06-21 Completed NPI:[id number] (varivax)(chicken pox) 00:00:00 1 DTAP 2005-06-21 Completed NPI:[id number] 00:00:00 1 MMR 2005-06-21 Completed NPI:[id number] 00:00:00 1 Polio (IPV/OPV) 2005-06-21 Completed NPI:[id number] 1878 00:00:00 1 Varicella 2005-06-21 Completed NPI:[id number] (varivax)(chicken pox) 00:00:00 1 DTAP 2005-06-21 Completed NPI:[id number] 00:00:00 1 MMR 2005-06-21 Completed NPI:[id number] 00:00:00 1 Polio (IPV/OPV) 2005-06-21 Completed NPI:[id number] 1878 00:00:00 1 Varicella 2005-06-21 Completed NPI:[id number] (varivax)(chicken pox) 00:00:00 1 DTAP 2005-06-21 Completed NPI:[id number] 00:00:00 1 MMR 2005-06-21 Completed NPI:[id number] 00:00:00 1 Polio (IPV/OPV) 2005-06-21 Completed NPI:[id number] 1878 00:00:00 1 Varicella 2005-06-21 Completed NPI:[id number] (varivax)(chicken pox) 00:00:00 1 DTAP 2005-06-21 Completed NPI:[id number] 00:00:00 1 MMR 2005-06-21 Completed NPI:[id number] 00:00:00 1 Polio (IPV/OPV) 2005-06-21 Completed NPI:[id number] 1878 00:00:00 1 Varicella 2005-06-21 Completed NPI:[id number] (varivax)(chicken pox) 00:00:00 1 DTAP 2005-06-21 Completed NPI:[id number] 00:00:00 1 MMR 2005-06-21 Completed NPI:[id number] 00:00:00 1 Polio (IPV/OPV) 2005-06-21 Completed NPI:[id number] 1878 00:00:00 1 Varicella 2005-06-21 Completed NPI:[id number] (varivax)(chicken pox) 00:00:00 1 DTAP 2005-06-21 Completed NPI:[id number] 00:00:00 1 MMR 2005-06-21 Completed NPI:[id number] 00:00:00 1 Polio (IPV/OPV) 2005-06-21 Completed NPI:[id number] 1878 00:00:00 1 Varicella 2005-06-21 Completed NPI:[id number] (varivax)(chicken pox) 00:00:00 1 DTAP 2005-06-21 Completed NPI:[id number] 00:00:00 1 DTAP 2005-06-21 Completed NPI:[id number] 00:00:00 1 MMR 2005-06-21 Completed NPI:[id number] 00:00:00 1 Polio (IPV/OPV) 2005-06-21 Completed NPI:[id number] 1878 00:00:00 1 Varicella 2005-06-21 Completed NPI:[id number] (varivax)(chicken pox) 00:00:00 1 DTAP 2005-06-21 Completed NPI:[id number] 00:00:00 1 MMR 2005-06-21 Completed NPI:[id number] 00:00:00 1 Polio (IPV/OPV) 2005-06-21 Completed NPI:[id number] 1878 00:00:00 1 Varicella 2005-06-21 Completed NPI:[id number] (varivax)(chicken pox) 00:00:00 1 DTAP 2005-06-21 Completed NPI:[id number] 00:00:00 1 MMR 2005-06-21 Completed NPI:[id number] 00:00:00 1 Polio (IPV/OPV) 2005-06-21 Completed NPI:[id number] 1878 00:00:00 1 Varicella 2005-06-21 Completed NPI:[id number] (varivax)(chicken pox) 00:00:00 1 DTAP 2005-06-21 Completed NPI:[id number] 00:00:00 1 MMR 2005-06-21 Completed NPI:[id number] 00:00:00 1 Polio (IPV/OPV) 2005-06-21 Completed NPI:[id number] 1878 00:00:00 1 Varicella 2005-06-21 Completed NPI:[id number] (varivax)(chicken pox) 00:00:00 1 HEPATITIS A 2005-03-04 Completed NPI:[id number] 00:00:00 1 HEPATITIS A 2005-03-04 Completed NPI:[id number] 00:00:00 1 HEPATITIS A 2005-03-04 Completed NPI:[id number] 00:00:00 1 HEPATITIS A 2005-03-04 Completed NPI:[id number] 00:00:00 1 HEPATITIS A 2005-03-04 Completed NPI:[id number] 00:00:00 1 HEPATITIS A 2005-03-04 Completed NPI:[id number] 00:00:00 1 HEPATITIS A 2005-03-04 Completed NPI:[id number] 00:00:00 1 HEPATITIS A 2005-03-04 Completed NPI:[id number] 00:00:00 1 HEPATITIS A 2005-03-04 Completed NPI:[id number] 00:00:00 1 HEPATITIS A 2005-03-04 Completed NPI:[id number] 00:00:00 1 HEPATITIS A 2005-03-04 Completed NPI:[id number] 00:00:00 1 HEPATITIS A 2005-03-04 Completed NPI:[id number] 00:00:00 1 HEPATITIS A 2005-03-04 Completed NPI:[id number] 00:00:00 1 HEPATITIS A 2005-03-04 Completed NPI:[id number] 00:00:00 1 HEPATITIS A 2005-03-04 Completed NPI:[id number] 00:00:00 1 HEPATITIS A 2005-03-04 Completed NPI:[id number] 00:00:00 1 HEPATITIS A 2005-03-04 Completed NPI:[id number] 00:00:00 1 HEPATITIS A 2005-03-04 Completed NPI:[id number] 00:00:00 1 HEPATITIS A 2005-03-04 Completed NPI:[id number] 00:00:00 1 HEPATITIS A 2005-03-04 Completed NPI:[id number] 00:00:00 1 HEPATITIS A 2005-03-04 Completed NPI:[id number] 00:00:00 1 HEPATITIS A 2005-03-04 Completed NPI:[id number] 00:00:00 1 HEPATITIS A 2005-03-04 Completed NPI:[id number] 00:00:00 1 HEPATITIS A 2005-03-04 Completed NPI:[id number] 00:00:00 1 HEPATITIS A 2005-03-04 Completed NPI:[id number] 00:00:00 1 HEPATITIS A 2005-03-04 Completed NPI:[id number] 00:00:00 1 HEPATITIS A 2005-03-04 Completed NPI:[id number] 00:00:00 1 HEPATITIS A 2005-03-04 Completed NPI:[id number] 00:00:00 1 HEPATITIS A 2005-03-04 Completed NPI:[id number] 00:00:00 1 HEPATITIS A 2005-03-04 Completed NPI:[id number] 00:00:00 1 HEPATITIS A 2005-03-04 Completed NPI:[id number] 00:00:00 1 HEPATITIS A 2005-03-04 Completed NPI:[id number] 00:00:00 1 HEPATITIS A 2005-03-04 Completed NPI:[id number] 00:00:00 1 HEPATITIS A 2005-03-04 Completed NPI:[id number] 00:00:00 1 HEPATITIS A 2005-03-04 Completed NPI:[id number] 00:00:00 1 HEPATITIS A 2005-03-04 Completed NPI:[id number] 00:00:00 1 HEPATITIS A 2005-03-04 Completed NPI:[id number] 00:00:00 1 HEPATITIS A 2005-03-04 Completed NPI:[id number] 00:00:00 1 HEPATITIS A 2005-03-04 Completed NPI:[id number] 00:00:00 1 HEPATITIS A 2005-03-04 Completed NPI:[id number] 00:00:00 1 HEPATITIS A 2005-03-04 Completed NPI:[id number] 00:00:00 1 HEPATITIS A 2005-03-04 Completed NPI:[id number] 00:00:00 1 HEPATITIS A 2005-03-04 Completed NPI:[id number] 00:00:00 1 HEPATITIS A 2005-03-04 Completed NPI:[id number] 00:00:00 1 HEPATITIS A 2005-03-04 Completed NPI:[id number] 00:00:00 1 HEPATITIS A 2005-03-04 Completed NPI:[id number] 00:00:00 1 HEPATITIS A 2005-03-04 Completed NPI:[id number] 00:00:00 1 HEPATITIS A 2005-03-04 Completed NPI:[id number] 00:00:00 1 HEPATITIS A 2005-03-04 Completed NPI:[id number] 00:00:00 1 HEPATITIS A 2005-03-04 Completed NPI:[id number] 00:00:00 1 DTAP 2002-05-29 Completed NPI:[id number] 00:00:00 1 HIB 4 Dose Schedule 2002-05-29 Completed NPI:1 [id number] 00:00:00 1 Pneumococcal 7 2002-05-29 Completed NPI:[id number] 878 Conjugate, PCV7 00:00:00 1 (Prevnar7) DTAP 2002-05-29 Completed NPI:[id number] 00:00:00 1 HIB 4 Dose Schedule 2002-05-29 Completed NPI:1 [id number] 00:00:00 1 Pneumococcal 7 2002-05-29 Completed NPI:[id number] 878 Conjugate, PCV7 00:00:00 1 (Prevnar7) Pneumococcal 7 2002-05-29 Completed NPI:[id number] 878 Conjugate, PCV7 00:00:00 1 (Prevnar7) DTAP 2002-05-29 Completed NPI:[id number] 00:00:00 1 HIB 4 Dose Schedule 2002-05-29 Completed NPI:1 [id number] 00:00:00 1 Pneumococcal 7 2002-05-29 Completed NPI:[id number] 878 Conjugate, PCV7 00:00:00 1 (Prevnar7) DTAP 2002-05-29 Completed NPI:[id number] 00:00:00 1 HIB 4 Dose Schedule 2002-05-29 Completed NPI:1 [id number] 00:00:00 1 Pneumococcal 7 2002-05-29 Completed NPI:[id number] 878 Conjugate, PCV7 00:00:00 1 (Prevnar7) DTAP 2002-05-29 Completed NPI:[id number] 00:00:00 1 HIB 4 Dose Schedule 2002-05-29 Completed NPI:1 [id number] 00:00:00 1 Pneumococcal 7 2002-05-29 Completed NPI:[id number] 878 Conjugate, PCV7 00:00:00 1 (Prevnar7) DTAP 2002-05-29 Completed NPI:[id number] 00:00:00 1 HIB 4 Dose Schedule 2002-05-29 Completed NPI:1 [id number] 00:00:00 1 Pneumococcal 7 2002-05-29 Completed NPI:[id number] 878 Conjugate, PCV7 00:00:00 1 (Prevnar7) DTAP 2002-05-29 Completed NPI:[id number] 00:00:00 1 HIB 4 Dose Schedule 2002-05-29 Completed NPI:1 [id number] 00:00:00 1 DTAP 2002-05-29 Completed NPI:[id number] 00:00:00 1 Pneumococcal 7 2002-05-29 Completed NPI:[id number] 878 Conjugate, PCV7 00:00:00 1 (Prevnar7) DTAP 2002-05-29 Completed NPI:[id number] 00:00:00 1 HIB 4 Dose Schedule 2002-05-29 Completed NPI:1 [id number] 00:00:00 1 Pneumococcal 7 2002-05-29 Completed NPI:[id number] 878 Conjugate, PCV7 00:00:00 1 (Prevnar7) HIB 4 Dose Schedule 2002-05-29 Completed NPI:1 [id number] 00:00:00 1 DTAP 2002-05-29 Completed NPI:[id number] 00:00:00 1 HIB 4 Dose Schedule 2002-05-29 Completed NPI:1 [id number] 00:00:00 1 Pneumococcal 7 2002-05-29 Completed NPI:[id number] 878 Conjugate, PCV7 00:00:00 1 (Prevnar7) DTAP 2002-05-29 Completed NPI:[id number] 00:00:00 1 HIB 4 Dose Schedule 2002-05-29 Completed NPI:1 [id number] 00:00:00 1 Pneumococcal 7 2002-05-29 Completed NPI:[id number] 878 Conjugate, PCV7 00:00:00 1 (Prevnar7) DTAP 2002-05-29 Completed NPI:[id number] 00:00:00 1 HIB 4 Dose Schedule 2002-05-29 Completed NPI:1 [id number] 00:00:00 1 Pneumococcal 7 2002-05-29 Completed NPI:[id number] 878 Conjugate, PCV7 00:00:00 1 (Prevnar7) DTAP 2002-05-29 Completed NPI:[id number] 00:00:00 1 HIB 4 Dose Schedule 2002-05-29 Completed NPI:1 [id number] 00:00:00 1 Pneumococcal 7 2002-05-29 Completed NPI:[id number] 878 Conjugate, PCV7 00:00:00 1 (Prevnar7) DTAP 2002-05-29 Completed NPI:[id number] 00:00:00 1 Pneumococcal 7 2002-05-29 Completed NPI:[id number] 878 Conjugate, PCV7 00:00:00 1 (Prevnar7) HIB 4 Dose Schedule 2002-05-29 Completed NPI:1 [id number] 00:00:00 1 Pneumococcal 7 2002-05-29 Completed NPI:[id number] 878 Conjugate, PCV7 00:00:00 1 (Prevnar7) DTAP 2002-05-29 Completed NPI:[id number] 00:00:00 1 HIB 4 Dose Schedule 2002-05-29 Completed NPI:1 [id number] 00:00:00 1 Pneumococcal 7 2002-05-29 Completed NPI:[id number] 878 Conjugate, PCV7 00:00:00 1 (Prevnar7) DTAP 2002-05-29 Completed NPI:[id number] 00:00:00 1 HIB 4 Dose Schedule 2002-05-29 Completed NPI:1 [id number] 00:00:00 1 Pneumococcal 7 2002-05-29 Completed NPI:[id number] 878 Conjugate, PCV7 00:00:00 1 (Prevnar7) DTAP 2002-05-29 Completed NPI:[id number] 00:00:00 1 HIB 4 Dose Schedule 2002-05-29 Completed NPI:1 [id number] 00:00:00 1 DTAP 2002-05-29 Completed NPI:[id number] 00:00:00 1 Pneumococcal 7 2002-05-29 Completed NPI:[id number] 878 Conjugate, PCV7 00:00:00 1 (Prevnar7) DTAP 2002-05-29 Completed NPI:[id number] 00:00:00 1 HIB 4 Dose Schedule 2002-05-29 Completed NPI:1 [id number] 00:00:00 1 HIB 4 Dose Schedule 2002-05-29 Completed NPI:1 [id number] 00:00:00 1 Pneumococcal 7 2002-05-29 Completed NPI:[id number] 878 Conjugate, PCV7 00:00:00 1 (Prevnar7) DTAP 2002-05-29 Completed NPI:[id number] 00:00:00 1 HIB 4 Dose Schedule 2002-05-29 Completed NPI:1 [id number] 00:00:00 1 Pneumococcal 7 2002-05-29 Completed NPI:[id number] 878 Conjugate, PCV7 00:00:00 1 (Prevnar7) DTAP 2002-05-29 Completed NPI:[id number] 00:00:00 1 HIB 4 Dose Schedule 2002-05-29 Completed NPI:1 [id number] 00:00:00 1 Pneumococcal 7 2002-05-29 Completed NPI:[id number] 878 Conjugate, PCV7 00:00:00 1 (Prevnar7) DTAP 2002-05-29 Completed NPI:[id number] 00:00:00 1 HIB 4 Dose Schedule 2002-05-29 Completed NPI:1 [id number] 00:00:00 1 Pneumococcal 7 2002-05-29 Completed NPI:[id number] 878 Conjugate, PCV7 00:00:00 1 (Prevnar7) DTAP 2002-05-29 Completed NPI:[id number] 00:00:00 1 HIB 4 Dose Schedule 2002-05-29 Completed NPI:1 [id number] 00:00:00 1 Pneumococcal 7 2002-05-29 Completed NPI:[id number] 878 Conjugate, PCV7 00:00:00 1 (Prevnar7) Pneumococcal 7 2002-05-29 Completed NPI:[id number] 878 Conjugate, PCV7 00:00:00 1 (Prevnar7) DTAP 2002-05-29 Completed NPI:[id number] 00:00:00 1 HIB 4 Dose Schedule 2002-05-29 Completed NPI:1 [id number] 00:00:00 1 Pneumococcal 7 2002-05-29 Completed NPI:[id number] 878 Conjugate, PCV7 00:00:00 1 (Prevnar7) DTAP 2002-05-29 Completed NPI:[id number] 00:00:00 1 HIB 4 Dose Schedule 2002-05-29 Completed NPI:1 [id number] 00:00:00 1 Pneumococcal 7 2002-05-29 Completed NPI:[id number] 878 Conjugate, PCV7 00:00:00 1 (Prevnar7) DTAP 2002-05-29 Completed NPI:[id number] 00:00:00 1 HIB 4 Dose Schedule 2002-05-29 Completed NPI:1 [id number] 00:00:00 1 Pneumococcal 7 2002-05-29 Completed NPI:[id number] 878 Conjugate, PCV7 00:00:00 1 (Prevnar7) DTAP 2002-05-29 Completed NPI:[id number] 00:00:00 1 HIB 4 Dose Schedule 2002-05-29 Completed NPI:1 [id number] 00:00:00 1 DTAP 2002-05-29 Completed NPI:[id number] 00:00:00 1 Pneumococcal 7 2002-05-29 Completed NPI:[id number] 878 Conjugate, PCV7 00:00:00 1 (Prevnar7) DTAP 2002-05-29 Completed NPI:[id number] 00:00:00 1 HIB 4 Dose Schedule 2002-05-29 Completed NPI:1 [id number] 00:00:00 1 HIB 4 Dose Schedule 2002-05-29 Completed NPI:1 [id number] 00:00:00 1 Pneumococcal 7 2002-05-29 Completed NPI:[id number] 878 Conjugate, PCV7 00:00:00 1 (Prevnar7) Pneumococcal 7 2002-05-29 Completed NPI:[id number] 878 Conjugate, PCV7 00:00:00 1 (Prevnar7) DTAP 2002-05-29 Completed NPI:[id number] 00:00:00 1 HIB 4 Dose Schedule 2002-05-29 Completed NPI:1 [id number] 00:00:00 1 Pneumococcal 7 2002-05-29 Completed NPI:[id number] 878 Conjugate, PCV7 00:00:00 1 (Prevnar7) DTAP 2002-05-29 Completed NPI:[id number] 00:00:00 1 HIB 4 Dose Schedule 2002-05-29 Completed NPI:1 [id number] 00:00:00 1 Pneumococcal 7 2002-05-29 Completed NPI:[id number] 878 Conjugate, PCV7 00:00:00 1 (Prevnar7) DTAP 2002-05-29 Completed NPI:[id number] 00:00:00 1 HIB 4 Dose Schedule 2002-05-29 Completed NPI:1 [id number] 00:00:00 1 Pneumococcal 7 2002-05-29 Completed NPI:480328 878 Conjugate, PCV7 00:00:00 1 (Prevnar7) DTAP 2002-05-29 Completed NPI:[id number] 00:00:00 1 HIB 4 Dose Schedule 2002-05-29 Completed NPI:1 [id number] 00:00:00 1 Pneumococcal 7 2002-05-29 Completed NPI:[id number] 878 Conjugate, PCV7 00:00:00 1 (Prevnar7) DTAP 2002-05-29 Completed NPI:[id number] 00:00:00 1 HIB 4 Dose Schedule 2002-05-29 Completed NPI:1 [id number] 00:00:00 1 Pneumococcal 7 2002-05-29 Completed NPI:[id number] 878 Conjugate, PCV7 00:00:00 1 (Prevnar7) DTAP 2002-05-29 Completed NPI:[id number] 00:00:00 1 HIB 4 Dose Schedule 2002-05-29 Completed NPI:1 [id number] 00:00:00 1 Pneumococcal 7 2002-05-29 Completed NPI:[id number] 878 Conjugate, PCV7 00:00:00 1 (Prevnar7) DTAP 2002-05-29 Completed NPI:[id number] 00:00:00 1 HIB 4 Dose Schedule 2002-05-29 Completed NPI:1 [id number] 00:00:00 1 Pneumococcal 7 2002-05-29 Completed NPI:[id number] 878 Conjugate, PCV7 00:00:00 1 (Prevnar7) DTAP 2002-05-29 Completed NPI:[id number] 00:00:00 1 HIB 4 Dose Schedule 2002-05-29 Completed NPI:1 [id number] 00:00:00 1 Pneumococcal 7 2002-05-29 Completed NPI:376404 878 Conjugate, PCV7 00:00:00 1 (Prevnar7) DTAP 2002-05-29 Completed NPI:[id number] 00:00:00 1 HIB 4 Dose Schedule 2002-05-29 Completed NPI:1 [id number] 00:00:00 1 Pneumococcal 7 2002-05-29 Completed NPI:[id number] 878 Conjugate, PCV7 00:00:00 1 (Prevnar7) DTAP 2002-05-29 Completed NPI:[id number] 00:00:00 1 HIB 4 Dose Schedule 2002-05-29 Completed NPI:1 [id number] 00:00:00 1 Pneumococcal 7 2002-05-29 Completed NPI:[id number] 878 Conjugate, PCV7 00:00:00 1 (Prevnar7) DTAP 2002-05-29 Completed NPI:[id number] 00:00:00 1 HIB 4 Dose Schedule 2002-05-29 Completed NPI:1 [id number] 00:00:00 1 Pneumococcal 7 2002-05-29 Completed NPI:[id number] 878 Conjugate, PCV7 00:00:00 1 (Prevnar7) DTAP 2002-05-29 Completed NPI:[id number] 00:00:00 1 HIB 4 Dose Schedule 2002-05-29 Completed NPI:1 [id number] 00:00:00 1 Pneumococcal 7 2002-05-29 Completed NPI:[id number] 878 Conjugate, PCV7 00:00:00 1 (Prevnar7) DTAP 2002-05-29 Completed NPI:[id number] 00:00:00 1 HIB 4 Dose Schedule 2002-05-29 Completed NPI:1 [id number] 00:00:00 1 Pneumococcal 7 2002-05-29 Completed NPI:[id number] 878 Conjugate, PCV7 00:00:00 1 (Prevnar7) DTAP 2002-05-29 Completed NPI:[id number] 00:00:00 1 HIB 4 Dose Schedule 2002-05-29 Completed NPI:1 [id number] 00:00:00 1 Pneumococcal 7 2002-05-29 Completed NPI:[id number] 878 Conjugate, PCV7 00:00:00 1 (Prevnar7) DTAP 2002-05-29 Completed NPI:[id number] 00:00:00 1 HIB 4 Dose Schedule 2002-05-29 Completed NPI:1 [id number] 00:00:00 1 Pneumococcal 7 2002-05-29 Completed NPI:[id number] 878 Conjugate, PCV7 00:00:00 1 (Prevnar7) DTAP 2002-05-29 Completed NPI:[id number] 00:00:00 1 HIB 4 Dose Schedule 2002-05-29 Completed NPI:1 [id number] 00:00:00 1 Pneumococcal 7 2002-05-29 Completed NPI:[id number] 878 Conjugate, PCV7 00:00:00 1 (Prevnar7) DTAP 2002-05-29 Completed NPI:[id number] 00:00:00 1 DTAP 2002-05-29 Completed NPI:[id number] 00:00:00 1 HIB 4 Dose Schedule 2002-05-29 Completed NPI:1 [id number] 00:00:00 1 Pneumococcal 7 2002-05-29 Completed NPI:[id number] 878 Conjugate, PCV7 00:00:00 1 (Prevnar7) DTAP 2002-05-29 Completed NPI:[id number] 00:00:00 1 HIB 4 Dose Schedule 2002-05-29 Completed NPI:1 [id number] 00:00:00 1 HIB 4 Dose Schedule 2002-05-29 Completed NPI:1 [id number] 00:00:00 1 Pneumococcal 7 2002-05-29 Completed NPI:[id number] 878 Conjugate, PCV7 00:00:00 1 (Prevnar7) DTAP 2002-05-29 Completed NPI:[id number] 00:00:00 1 HIB 4 Dose Schedule 2002-05-29 Completed NPI:1 [id number] 00:00:00 1 Pneumococcal 7 2002-05-29 Completed NPI:[id number] 878 Conjugate, PCV7 00:00:00 1 (Prevnar7) DTAP 2002-05-29 Completed NPI:[id number] 00:00:00 1 HIB 4 Dose Schedule 2002-05-29 Completed NPI:1 [id number] 00:00:00 1 Pneumococcal 7 2002-05-29 Completed NPI:[id number] 878 Conjugate, PCV7 00:00:00 1 (Prevnar7) DTAP 2002-01-19 Completed NPI:[id number] 00:00:00 1 HIB 4 Dose Schedule 2002-01-19 Completed NPI:1 [id number] 00:00:00 1 MMR 2002-01-19 Completed NPI:[id number] 00:00:00 1 Polio (IPV/OPV) 2002-01-19 Completed NPI:[id number] 00:00:00 1 Polio (IPV/OPV) 2002-01-19 Completed NPI:[id number] 00:00:00 1 DTAP 2002-01-19 Completed NPI:[id number] 00:00:00 1 HIB 4 Dose Schedule 2002-01-19 Completed NPI:1 [id number] 00:00:00 1 MMR 2002-01-19 Completed NPI:[id number] 00:00:00 1 Polio (IPV/OPV) 2002-01-19 Completed NPI:[id number] 1878 00:00:00 1 DTAP 2002-01-19 Completed NPI:[id number] 00:00:00 1 HIB 4 Dose Schedule 2002-01-19 Completed NPI:1 [id number] 00:00:00 1 MMR 2002-01-19 Completed NPI:[id number] 00:00:00 1 Polio (IPV/OPV) 2002-01-19 Completed NPI:[id number] 1878 00:00:00 1 DTAP 2002-01-19 Completed NPI:[id number] 00:00:00 1 HIB 4 Dose Schedule 2002-01-19 Completed NPI:1 [id number] 00:00:00 1 MMR 2002-01-19 Completed NPI:[id number] 00:00:00 1 Polio (IPV/OPV) 2002-01-19 Completed NPI:[id number] 1878 00:00:00 1 DTAP 2002-01-19 Completed NPI:[id number] 00:00:00 1 HIB 4 Dose Schedule 2002-01-19 Completed NPI:1 [id number] 00:00:00 1 MMR 2002-01-19 Completed NPI:[id number] 00:00:00 1 Polio (IPV/OPV) 2002-01-19 Completed NPI:[id number] 1878 00:00:00 1 DTAP 2002-01-19 Completed NPI:[id number] 00:00:00 1 HIB 4 Dose Schedule 2002-01-19 Completed NPI:1 [id number] 00:00:00 1 MMR 2002-01-19 Completed NPI:[id number] 00:00:00 1 Polio (IPV/OPV) 2002-01-19 Completed NPI:[id number] 1878 00:00:00 1 DTAP 2002-01-19 Completed NPI:[id number] 00:00:00 1 HIB 4 Dose Schedule 2002-01-19 Completed NPI:1 [id number] 00:00:00 1 DTAP 2002-01-19 Completed NPI:[id number] 00:00:00 1 MMR 2002-01-19 Completed NPI:[id number] 00:00:00 1 Polio (IPV/OPV) 2002-01-19 Completed NPI:[id number] 1878 00:00:00 1 DTAP 2002-01-19 Completed NPI:[id number] 00:00:00 1 HIB 4 Dose Schedule 2002-01-19 Completed NPI:1 [id number] 00:00:00 1 MMR 2002-01-19 Completed NPI:[id number] 00:00:00 1 Polio (IPV/OPV) 2002-01-19 Completed NPI:[id number] 1878 00:00:00 1 HIB 4 Dose Schedule 2002-01-19 Completed NPI:1 [id number] 00:00:00 1 DTAP 2002-01-19 Completed NPI:[id number] 00:00:00 1 HIB 4 Dose Schedule 2002-01-19 Completed NPI:1 [id number] 00:00:00 1 MMR 2002-01-19 Completed NPI:[id number] 00:00:00 1 Polio (IPV/OPV) 2002-01-19 Completed NPI:[id number] 1878 00:00:00 1 DTAP 2002-01-19 Completed NPI:[id number] 00:00:00 1 HIB 4 Dose Schedule 2002-01-19 Completed NPI:1 [id number] 00:00:00 1 MMR 2002-01-19 Completed NPI:[id number] 00:00:00 1 Polio (IPV/OPV) 2002-01-19 Completed NPI:[id number] 1878 00:00:00 1 DTAP 2002-01-19 Completed NPI:[id number] 00:00:00 1 MMR 2002-01-19 Completed NPI:[id number] 00:00:00 1 HIB 4 Dose Schedule 2002-01-19 Completed NPI:1 [id number] 00:00:00 1 MMR 2002-01-19 Completed NPI:[id number] 00:00:00 1 Polio (IPV/OPV) 2002-01-19 Completed NPI:[id number] 1878 00:00:00 1 DTAP 2002-01-19 Completed NPI:[id number] 00:00:00 1 Polio (IPV/OPV) 2002-01-19 Completed NPI:[id number] 1878 00:00:00 1 HIB 4 Dose Schedule 2002-01-19 Completed NPI:1 [id number] 00:00:00 1 MMR 2002-01-19 Completed NPI:[id number] 00:00:00 1 Polio (IPV/OPV) 2002-01-19 Completed NPI:[id number] 1878 00:00:00 1 DTAP 2002-01-19 Completed NPI:[id number] 00:00:00 1 HIB 4 Dose Schedule 2002-01-19 Completed NPI:1 [id number] 00:00:00 1 MMR 2002-01-19 Completed NPI:[id number] 00:00:00 1 Polio (IPV/OPV) 2002-01-19 Completed NPI:[id number] 1878 00:00:00 1 DTAP 2002-01-19 Completed NPI:[id number] 00:00:00 1 HIB 4 Dose Schedule 2002-01-19 Completed NPI:1 [id number] 00:00:00 1 MMR 2002-01-19 Completed NPI:[id number] 00:00:00 1 Polio (IPV/OPV) 2002-01-19 Completed NPI:[id number] 1878 00:00:00 1 DTAP 2002-01-19 Completed NPI:[id number] 00:00:00 1 HIB 4 Dose Schedule 2002-01-19 Completed NPI:1 [id number] 00:00:00 1 MMR 2002-01-19 Completed NPI:[id number] 00:00:00 1 Polio (IPV/OPV) 2002-01-19 Completed NPI:[id number] 1878 00:00:00 1 DTAP 2002-01-19 Completed NPI:[id number] 00:00:00 1 DTAP 2002-01-19 Completed NPI:[id number] 00:00:00 1 HIB 4 Dose Schedule 2002-01-19 Completed NPI:1 [id number] 00:00:00 1 MMR 2002-01-19 Completed NPI:[id number] 00:00:00 1 Polio (IPV/OPV) 2002-01-19 Completed NPI:[id number] 1878 00:00:00 1 DTAP 2002-01-19 Completed NPI:[id number] 00:00:00 1 HIB 4 Dose Schedule 2002-01-19 Completed NPI:1 [id number] 00:00:00 1 HIB 4 Dose Schedule 2002-01-19 Completed NPI:1 [id number] 00:00:00 1 MMR 2002-01-19 Completed NPI:[id number] 00:00:00 1 Polio (IPV/OPV) 2002-01-19 Completed NPI:[id number] 1878 00:00:00 1 DTAP 2002-01-19 Completed NPI:[id number] 00:00:00 1 HIB 4 Dose Schedule 2002-01-19 Completed NPI:1 [id number] 00:00:00 1 MMR 2002-01-19 Completed NPI:[id number] 00:00:00 1 Polio (IPV/OPV) 2002-01-19 Completed NPI:[id number] 1878 00:00:00 1 DTAP 2002-01-19 Completed NPI:[id number] 00:00:00 1 HIB 4 Dose Schedule 2002-01-19 Completed NPI:1 [id number] 00:00:00 1 MMR 2002-01-19 Completed NPI:[id number] 00:00:00 1 Polio (IPV/OPV) 2002-01-19 Completed NPI:[id number] 1878 00:00:00 1 MMR 2002-01-19 Completed NPI:[id number] 00:00:00 1 DTAP 2002-01-19 Completed NPI:[id number] 00:00:00 1 HIB 4 Dose Schedule 2002-01-19 Completed NPI:1 [id number] 00:00:00 1 MMR 2002-01-19 Completed NPI:[id number] 00:00:00 1 Polio (IPV/OPV) 2002-01-19 Completed NPI:[id number] 1878 00:00:00 1 Polio (IPV/OPV) 2002-01-19 Completed NPI:04551 1878 00:00:00 1 DTAP 2002-01-19 Completed NPI:[id number] 00:00:00 1 HIB 4 Dose Schedule 2002-01-19 Completed NPI:1 [id number] 00:00:00 1 MMR 2002-01-19 Completed NPI:[id number] 00:00:00 1 Polio (IPV/OPV) 2002-01-19 Completed NPI:[id number] 1878 00:00:00 1 DTAP 2002-01-19 Completed NPI:[id number] 00:00:00 1 HIB 4 Dose Schedule 2002-01-19 Completed NPI:1 [id number] 00:00:00 1 MMR 2002-01-19 Completed NPI:[id number] 00:00:00 1 Polio (IPV/OPV) 2002-01-19 Completed NPI:[id number] 1878 00:00:00 1 DTAP 2002-01-19 Completed NPI:[id number] 00:00:00 1 HIB 4 Dose Schedule 2002-01-19 Completed NPI:1 [id number] 00:00:00 1 MMR 2002-01-19 Completed NPI:[id number] 00:00:00 1 Polio (IPV/OPV) 2002-01-19 Completed NPI:40821 1878 00:00:00 1 DTAP 2002-01-19 Completed NPI:[id number] 00:00:00 1 HIB 4 Dose Schedule 2002-01-19 Completed NPI:1 [id number] 00:00:00 1 MMR 2002-01-19 Completed NPI:[id number] 00:00:00 1 Polio (IPV/OPV) 2002-01-19 Completed NPI:[id number] 1878 00:00:00 1 DTAP 2002-01-19 Completed NPI:[id number] 00:00:00 1 DTAP 2002-01-19 Completed NPI:[id number] 00:00:00 1 HIB 4 Dose Schedule 2002-01-19 Completed NPI:1 [id number] 00:00:00 1 MMR 2002-01-19 Completed NPI:[id number] 00:00:00 1 Polio (IPV/OPV) 2002-01-19 Completed NPI:[id number] 1878 00:00:00 1 DTAP 2002-01-19 Completed NPI:[id number] 00:00:00 1 HIB 4 Dose Schedule 2002-01-19 Completed NPI:1 [id number] 00:00:00 1 HIB 4 Dose Schedule 2002-01-19 Completed NPI:1 [id number] 00:00:00 1 MMR 2002-01-19 Completed NPI:[id number] 00:00:00 1 Polio (IPV/OPV) 2002-01-19 Completed NPI:84001 1878 00:00:00 1 MMR 2002-01-19 Completed NPI:[id number] 00:00:00 1 Polio (IPV/OPV) 2002-01-19 Completed NPI:30336 1878 00:00:00 1 DTAP 2002-01-19 Completed NPI:[id number] 00:00:00 1 HIB 4 Dose Schedule 2002-01-19 Completed NPI:1 [id number] 00:00:00 1 MMR 2002-01-19 Completed NPI:[id number] 00:00:00 1 Polio (IPV/OPV) 2002-01-19 Completed NPI:64041 1878 00:00:00 1 DTAP 2002-01-19 Completed NPI:[id number] 00:00:00 1 HIB 4 Dose Schedule 2002-01-19 Completed NPI:1 [id number] 00:00:00 1 MMR 2002-01-19 Completed NPI:[id number] 00:00:00 1 Polio (IPV/OPV) 2002-01-19 Completed NPI:[id number] 1878 00:00:00 1 DTAP 2002-01-19 Completed NPI:[id number] 00:00:00 1 HIB 4 Dose Schedule 2002-01-19 Completed NPI:1 [id number] 00:00:00 1 MMR 2002-01-19 Completed NPI:[id number] 00:00:00 1 Polio (IPV/OPV) 2002-01-19 Completed NPI:46044 1878 00:00:00 1 DTAP 2002-01-19 Completed NPI:[id number] 00:00:00 1 HIB 4 Dose Schedule 2002-01-19 Completed NPI:1 [id number] 00:00:00 1 MMR 2002-01-19 Completed NPI:[id number] 00:00:00 1 Polio (IPV/OPV) 2002-01-19 Completed NPI:[id number] 1878 00:00:00 1 DTAP 2002-01-19 Completed NPI:[id number] 00:00:00 1 HIB 4 Dose Schedule 2002-01-19 Completed NPI:1 [id number] 00:00:00 1 MMR 2002-01-19 Completed NPI:[id number] 00:00:00 1 Polio (IPV/OPV) 2002-01-19 Completed NPI:[id number] 1878 00:00:00 1 DTAP 2002-01-19 Completed NPI:[id number] 00:00:00 1 HIB 4 Dose Schedule 2002-01-19 Completed NPI:1 [id number] 00:00:00 1 MMR 2002-01-19 Completed NPI:[id number] 00:00:00 1 Polio (IPV/OPV) 2002-01-19 Completed NPI:[id number] 1878 00:00:00 1 DTAP 2002-01-19 Completed NPI:[id number] 00:00:00 1 HIB 4 Dose Schedule 2002-01-19 Completed NPI:1 [id number] 00:00:00 1 MMR 2002-01-19 Completed NPI:[id number] 00:00:00 1 Polio (IPV/OPV) 2002-01-19 Completed NPI:88645 1878 00:00:00 1 DTAP 2002-01-19 Completed NPI:[id number] 00:00:00 1 HIB 4 Dose Schedule 2002-01-19 Completed NPI:1 [id number] 00:00:00 1 MMR 2002-01-19 Completed NPI:[id number] 00:00:00 1 Polio (IPV/OPV) 2002-01-19 Completed NPI:51697 1878 00:00:00 1 DTAP 2002-01-19 Completed NPI:[id number] 00:00:00 1 HIB 4 Dose Schedule 2002-01-19 Completed NPI:1 [id number] 00:00:00 1 MMR 2002-01-19 Completed NPI:[id number] 00:00:00 1 Polio (IPV/OPV) 2002-01-19 Completed NPI:61401 1878 00:00:00 1 DTAP 2002-01-19 Completed NPI:[id number] 00:00:00 1 HIB 4 Dose Schedule 2002-01-19 Completed NPI:1 [id number] 00:00:00 1 MMR 2002-01-19 Completed NPI:[id number] 00:00:00 1 Polio (IPV/OPV) 2002-01-19 Completed NPI:68757 1878 00:00:00 1 DTAP 2002-01-19 Completed NPI:[id number] 00:00:00 1 HIB 4 Dose Schedule 2002-01-19 Completed NPI:1 [id number] 00:00:00 1 MMR 2002-01-19 Completed NPI:[id number] 00:00:00 1 Polio (IPV/OPV) 2002-01-19 Completed NPI:[id number] 1878 00:00:00 1 DTAP 2002-01-19 Completed NPI:[id number] 00:00:00 1 HIB 4 Dose Schedule 2002-01-19 Completed NPI:1 [id number] 00:00:00 1 MMR 2002-01-19 Completed NPI:[id number] 00:00:00 1 Polio (IPV/OPV) 2002-01-19 Completed NPI:31530 1878 00:00:00 1 DTAP 2002-01-19 Completed NPI:[id number] 00:00:00 1 HIB 4 Dose Schedule 2002-01-19 Completed NPI:1 [id number] 00:00:00 1 MMR 2002-01-19 Completed NPI:[id number] 00:00:00 1 Polio (IPV/OPV) 2002-01-19 Completed NPI:46344 1878 00:00:00 1 DTAP 2002-01-19 Completed NPI:[id number] 00:00:00 1 HIB 4 Dose Schedule 2002-01-19 Completed NPI:1 [id number] 00:00:00 1 MMR 2002-01-19 Completed NPI:[id number] 00:00:00 1 Polio (IPV/OPV) 2002-01-19 Completed NPI:61249 1878 00:00:00 1 DTAP 2002-01-19 Completed NPI:[id number] 00:00:00 1 HIB 4 Dose Schedule 2002-01-19 Completed NPI:1 [id number] 00:00:00 1 MMR 2002-01-19 Completed NPI:[id number] 00:00:00 1 Polio (IPV/OPV) 2002-01-19 Completed NPI:81088 1878 00:00:00 1 DTAP 2002-01-19 Completed NPI:[id number] 00:00:00 1 HIB 4 Dose Schedule 2002-01-19 Completed NPI:1 [id number] 00:00:00 1 MMR 2002-01-19 Completed NPI:[id number] 00:00:00 1 DTAP 2002-01-19 Completed NPI:[id number] 00:00:00 1 Polio (IPV/OPV) 2002-01-19 Completed NPI:[id number] 1878 00:00:00 1 DTAP 2002-01-19 Completed NPI:[id number] 00:00:00 1 HIB 4 Dose Schedule 2002-01-19 Completed NPI:1 [id number] 00:00:00 1 MMR 2002-01-19 Completed NPI:[id number] 00:00:00 1 Polio (IPV/OPV) 2002-01-19 Completed NPI:50069 1878 00:00:00 1 HIB 4 Dose Schedule 2002-01-19 Completed NPI:1 [id number] 00:00:00 1 DTAP 2002-01-19 Completed NPI:[id number] 00:00:00 1 HIB 4 Dose Schedule 2002-01-19 Completed NPI:1 [id number] 00:00:00 1 MMR 2002-01-19 Completed NPI:[id number] 00:00:00 1 Polio (IPV/OPV) 2002-01-19 Completed NPI:[id number] 1878 00:00:00 1 DTAP 2002-01-19 Completed NPI:[id number] 00:00:00 1 HIB 4 Dose Schedule 2002-01-19 Completed NPI:1 [id number] 00:00:00 1 MMR 2002-01-19 Completed NPI:[id number] 00:00:00 1 Polio (IPV/OPV) 2002-01-19 Completed NPI:78676 1878 00:00:00 1 DTAP 2002-01-19 Completed NPI:[id number] 00:00:00 1 HIB 4 Dose Schedule 2002-01-19 Completed NPI:1 [id number] 00:00:00 1 MMR 2002-01-19 Completed NPI:[id number] 00:00:00 1 MMR 2002-01-19 Completed NPI:[id number] 00:00:00 1 Polio (IPV/OPV) 2002-01-19 Completed NPI:23175 1878 00:00:00 1 DTAP 2001 Completed NPI:[id number] 00:00:00 1 HIB 4 Dose Schedule 2001 Completed NPI:1 [id number] 00:00:00 1 Polio (IPV/OPV) 2001 Completed NPI:35267 1878 00:00:00 1 Hep B, Adol or Pedi 2001 Completed NPI:1 [id number] Dosage 00:00:00 1 Polio (IPV/OPV) 2001 Completed NPI:16267 1878 00:00:00 1 DTAP 2001 Completed NPI:[id number] 00:00:00 1 HIB 4 Dose Schedule 2001 Completed NPI:1 [id number] 00:00:00 1 Hep B, Adol or Pedi 2001 Completed NPI:1 [id number] Dosage 00:00:00 1 Polio (IPV/OPV) 2001 Completed NPI:80394 1878 00:00:00 1 DTAP 2001 Completed NPI:[id number] 00:00:00 1 HIB 4 Dose Schedule 2001 Completed NPI:1 [id number] 00:00:00 1 Hep B, Adol or Pedi 2001 Completed NPI:1 [id number] Dosage 00:00:00 1 Polio (IPV/OPV) 2001 Completed NPI:[id number] 1878 00:00:00 1 DTAP 2001 Completed NPI:[id number] 00:00:00 1 HIB 4 Dose Schedule 2001 Completed NPI:1 [id number] 00:00:00 1 Hep B, Adol or Pedi 2001 Completed NPI:1 [id number] Dosage 00:00:00 1 Polio (IPV/OPV) 2001 Completed NPI:[id number] 1878 00:00:00 1 DTAP 2001 Completed NPI:[id number] 00:00:00 1 HIB 4 Dose Schedule 2001 Completed NPI:1 [id number] 00:00:00 1 Hep B, Adol or Pedi 2001 Completed NPI:1 [id number] Dosage 00:00:00 1 Polio (IPV/OPV) 2001 Completed NPI:[id number] 1878 00:00:00 1 DTAP 2001 Completed NPI:[id number] 00:00:00 1 HIB 4 Dose Schedule 2001 Completed NPI:1 [id number] 00:00:00 1 Hep B, Adol or Pedi 2001 Completed NPI:1 [id number] Dosage 00:00:00 1 Polio (IPV/OPV) 2001 Completed NPI:16575 1878 00:00:00 1 DTAP 2001 Completed NPI:[id number] 00:00:00 1 DTAP 2001 Completed NPI:[id number] 00:00:00 1 HIB 4 Dose Schedule 2001 Completed NPI:1 [id number] 00:00:00 1 Hep B, Adol or Pedi 2001 Completed NPI:1 [id number] Dosage 00:00:00 1 Polio (IPV/OPV) 2001 Completed NPI:77404 1878 00:00:00 1 DTAP 2001 Completed NPI:[id number] 00:00:00 1 HIB 4 Dose Schedule 2001 Completed NPI:1 [id number] 00:00:00 1 Hep B, Adol or Pedi 2001 Completed NPI:1 [id number] Dosage 00:00:00 1 HIB 4 Dose Schedule 2001 Completed NPI:1 [id number] 00:00:00 1 Polio (IPV/OPV) 2001 Completed NPI:[id number] 1878 00:00:00 1 DTAP 2001 Completed NPI:[id number] 00:00:00 1 HIB 4 Dose Schedule 2001 Completed NPI:1 [id number] 00:00:00 1 Hep B, Adol or Pedi 2001 Completed NPI:1 [id number] Dosage 00:00:00 1 Polio (IPV/OPV) 2001 Completed NPI:[id number] 1878 00:00:00 1 DTAP 2001 Completed NPI:[id number] 00:00:00 1 Hep B, Adol or Pedi 2001 Completed NPI:1 [id number] Dosage 00:00:00 1 HIB 4 Dose Schedule 2001 Completed NPI:1 [id number] 00:00:00 1 Hep B, Adol or Pedi 2001 Completed NPI:1 [id number] Dosage 00:00:00 1 Polio (IPV/OPV) 2001 Completed NPI:57225 1878 00:00:00 1 DTAP 2001 Completed NPI:[id number] 00:00:00 1 HIB 4 Dose Schedule 2001 Completed NPI:1 [id number] 00:00:00 1 Hep B, Adol or Pedi 2001 Completed NPI:1 [id number] Dosage 00:00:00 1 Polio (IPV/OPV) 2001 Completed NPI:[id number] 1878 00:00:00 1 Polio (IPV/OPV) 2001 Completed NPI:[id number] 1878 00:00:00 1 DTAP 2001 Completed NPI:[id number] 00:00:00 1 HIB 4 Dose Schedule 2001 Completed NPI:1 [id number] 00:00:00 1 Hep B, Adol or Pedi 2001 Completed NPI:1 [id number] Dosage 00:00:00 1 Polio (IPV/OPV) 2001 Completed NPI:73221 1878 00:00:00 1 DTAP 2001 Completed NPI:[id number] 00:00:00 1 HIB 4 Dose Schedule 2001 Completed NPI:1 [id number] 00:00:00 1 Hep B, Adol or Pedi 2001 Completed NPI:1 [id number] Dosage 00:00:00 1 Polio (IPV/OPV) 2001 Completed NPI:82896 1878 00:00:00 1 DTAP 2001 Completed NPI:[id number] 00:00:00 1 HIB 4 Dose Schedule 2001 Completed NPI:1 [id number] 00:00:00 1 Hep B, Adol or Pedi 2001 Completed NPI:1 [id number] Dosage 00:00:00 1 Polio (IPV/OPV) 2001 Completed NPI:[id number] 1878 00:00:00 1 DTAP 2001 Completed NPI:[id number] 00:00:00 1 HIB 4 Dose Schedule 2001 Completed NPI:1 [id number] 00:00:00 1 Hep B, Adol or Pedi 2001 Completed NPI:1 [id number] Dosage 00:00:00 1 Polio (IPV/OPV) 2001 Completed NPI:[id number] 1878 00:00:00 1 DTAP 2001 Completed NPI:[id number] 00:00:00 1 DTAP 2001 Completed NPI:[id number] 00:00:00 1 HIB 4 Dose Schedule 2001 Completed NPI:1 [id number] 00:00:00 1 Hep B, Adol or Pedi 2001 Completed NPI:1 [id number] Dosage 00:00:00 1 Polio (IPV/OPV) 2001 Completed NPI:[id number] 1878 00:00:00 1 HIB 4 Dose Schedule 2001 Completed NPI:1 [id number] 00:00:00 1 DTAP 2001 Completed NPI:[id number] 00:00:00 1 HIB 4 Dose Schedule 2001 Completed NPI:1 [id number] 00:00:00 1 Hep B, Adol or Pedi 2001 Completed NPI:1 [id number] Dosage 00:00:00 1 Polio (IPV/OPV) 2001 Completed NPI:[id number] 1878 00:00:00 1 DTAP 2001 Completed NPI:[id number] 00:00:00 1 HIB 4 Dose Schedule 2001 Completed NPI:1 [id number] 00:00:00 1 Hep B, Adol or Pedi 2001 Completed NPI:1 [id number] Dosage 00:00:00 1 Polio (IPV/OPV) 2001 Completed NPI:[id number] 1878 00:00:00 1 Hep B, Adol or Pedi 2001 Completed NPI:1 [id number] Dosage 00:00:00 1 DTAP 2001 Completed NPI:[id number] 00:00:00 1 HIB 4 Dose Schedule 2001 Completed NPI:1 [id number] 00:00:00 1 Hep B, Adol or Pedi 2001 Completed NPI:1 [id number] Dosage 00:00:00 1 Polio (IPV/OPV) 2001 Completed NPI:[id number] 1878 00:00:00 1 DTAP 2001 Completed NPI:[id number] 00:00:00 1 HIB 4 Dose Schedule 2001 Completed NPI:1 [id number] 00:00:00 1 Hep B, Adol or Pedi 2001 Completed NPI:1 [id number] Dosage 00:00:00 1 Polio (IPV/OPV) 2001 Completed NPI:[id number] 1878 00:00:00 1 Polio (IPV/OPV) 2001 Completed NPI:[id number] 1878 00:00:00 1 DTAP 2001 Completed NPI:[id number] 00:00:00 1 HIB 4 Dose Schedule 2001 Completed NPI:1 [id number] 00:00:00 1 Hep B, Adol or Pedi 2001 Completed NPI:1 [id number] Dosage 00:00:00 1 Polio (IPV/OPV) 2001 Completed NPI:[id number] 1878 00:00:00 1 DTAP 2001 Completed NPI:[id number] 00:00:00 1 HIB 4 Dose Schedule 2001 Completed NPI:1 [id number] 00:00:00 1 Hep B, Adol or Pedi 2001 Completed NPI:1 [id number] Dosage 00:00:00 1 Polio (IPV/OPV) 2001 Completed NPI:75644 1878 00:00:00 1 DTAP 2001 Completed NPI:[id number] 00:00:00 1 HIB 4 Dose Schedule 2001 Completed NPI:1 [id number] 00:00:00 1 Hep B, Adol or Pedi 2001 Completed NPI:1 [id number] Dosage 00:00:00 1 Polio (IPV/OPV) 2001 Completed NPI:[id number] 1878 00:00:00 1 DTAP 2001 Completed NPI:[id number] 00:00:00 1 HIB 4 Dose Schedule 2001 Completed NPI:1 [id number] 00:00:00 1 Hep B, Adol or Pedi 2001 Completed NPI:1 [id number] Dosage 00:00:00 1 Polio (IPV/OPV) 2001 Completed NPI:[id number] 1878 00:00:00 1 DTAP 2001 Completed NPI:[id number] 00:00:00 1 DTAP 2001 Completed NPI:[id number] 00:00:00 1 HIB 4 Dose Schedule 2001 Completed NPI:1 [id number] 00:00:00 1 Hep B, Adol or Pedi 2001 Completed NPI:1 [id number] Dosage 00:00:00 1 Polio (IPV/OPV) 2001 Completed NPI:[id number] 1878 00:00:00 1 DTAP 2001 Completed NPI:[id number] 00:00:00 1 HIB 4 Dose Schedule 2001 Completed NPI:1 [id number] 00:00:00 1 HIB 4 Dose Schedule 2001 Completed NPI:1 [id number] 00:00:00 1 Hep B, Adol or Pedi 2001 Completed NPI:1 [id number] Dosage 00:00:00 1 Polio (IPV/OPV) 2001 Completed NPI:[id number] 1878 00:00:00 1 Hep B, Adol or Pedi 2001 Completed NPI:1 [id number] Dosage 00:00:00 1 Polio (IPV/OPV) 2001 Completed NPI:[id number] 1878 00:00:00 1 DTAP 2001 Completed NPI:[id number] 00:00:00 1 HIB 4 Dose Schedule 2001 Completed NPI:1 [id number] 00:00:00 1 Hep B, Adol or Pedi 2001 Completed NPI:1 [id number] Dosage 00:00:00 1 Polio (IPV/OPV) 2001 Completed NPI:70301 1878 00:00:00 1 DTAP 2001 Completed NPI:[id number] 00:00:00 1 HIB 4 Dose Schedule 2001 Completed NPI:1 [id number] 00:00:00 1 Hep B, Adol or Pedi 2001 Completed NPI:1 [id number] Dosage 00:00:00 1 Polio (IPV/OPV) 2001 Completed NPI:[id number] 1878 00:00:00 1 DTAP 2001 Completed NPI:[id number] 00:00:00 1 HIB 4 Dose Schedule 2001 Completed NPI:1 [id number] 00:00:00 1 Hep B, Adol or Pedi 2001 Completed NPI:1 [id number] Dosage 00:00:00 1 Polio (IPV/OPV) 2001 Completed NPI:99461 1878 00:00:00 1 DTAP 2001 Completed NPI:[id number] 00:00:00 1 HIB 4 Dose Schedule 2001 Completed NPI:1 [id number] 00:00:00 1 Hep B, Adol or Pedi 2001 Completed NPI:1 [id number] Dosage 00:00:00 1 Polio (IPV/OPV) 2001 Completed NPI:[id number] 1878 00:00:00 1 DTAP 2001 Completed NPI:[id number] 00:00:00 1 HIB 4 Dose Schedule 2001 Completed NPI:1 [id number] 00:00:00 1 Hep B, Adol or Pedi 2001 Completed NPI:1 [id number] Dosage 00:00:00 1 Polio (IPV/OPV) 2001 Completed NPI:[id number] 1878 00:00:00 1 DTAP 2001 Completed NPI:[id number] 00:00:00 1 HIB 4 Dose Schedule 2001 Completed NPI:1 [id number] 00:00:00 1 Hep B, Adol or Pedi 2001 Completed NPI:1 [id number] Dosage 00:00:00 1 Polio (IPV/OPV) 2001 Completed NPI:30748 1878 00:00:00 1 DTAP 2001 Completed NPI:[id number] 00:00:00 1 HIB 4 Dose Schedule 2001 Completed NPI:1 [id number] 00:00:00 1 Hep B, Adol or Pedi 2001 Completed NPI:1 [id number] Dosage 00:00:00 1 Polio (IPV/OPV) 2001 Completed NPI:[id number] 1878 00:00:00 1 DTAP 2001 Completed NPI:[id number] 00:00:00 1 HIB 4 Dose Schedule 2001 Completed NPI:1 [id number] 00:00:00 1 Hep B, Adol or Pedi 2001 Completed NPI:1 [id number] Dosage 00:00:00 1 Polio (IPV/OPV) 2001 Completed NPI:11651 1878 00:00:00 1 DTAP 2001 Completed NPI:[id number] 00:00:00 1 HIB 4 Dose Schedule 2001 Completed NPI:1 [id number] 00:00:00 1 Hep B, Adol or Pedi 2001 Completed NPI:1 [id number] Dosage 00:00:00 1 Polio (IPV/OPV) 2001 Completed NPI:45997 1878 00:00:00 1 DTAP 2001 Completed NPI:[id number] 00:00:00 1 HIB 4 Dose Schedule 2001 Completed NPI:1 [id number] 00:00:00 1 Hep B, Adol or Pedi 2001 Completed NPI:1 [id number] Dosage 00:00:00 1 Polio (IPV/OPV) 2001 Completed NPI:53383 1878 00:00:00 1 DTAP 2001 Completed NPI:[id number] 00:00:00 1 HIB 4 Dose Schedule 2001 Completed NPI:1 [id number] 00:00:00 1 Hep B, Adol or Pedi 2001 Completed NPI:1 [id number] Dosage 00:00:00 1 Polio (IPV/OPV) 2001 Completed NPI:92583 1878 00:00:00 1 DTAP 2001 Completed NPI:[id number] 00:00:00 1 HIB 4 Dose Schedule 2001 Completed NPI:1 [id number] 00:00:00 1 Hep B, Adol or Pedi 2001 Completed NPI:1 [id number] Dosage 00:00:00 1 Polio (IPV/OPV) 2001 Completed NPI:14965 1878 00:00:00 1 DTAP 2001 Completed NPI:[id number] 00:00:00 1 HIB 4 Dose Schedule 2001 Completed NPI:1 [id number] 00:00:00 1 Hep B, Adol or Pedi 2001 Completed NPI:1 [id number] Dosage 00:00:00 1 Polio (IPV/OPV) 2001 Completed NPI:[id number] 1878 00:00:00 1 DTAP 2001 Completed NPI:[id number] 00:00:00 1 HIB 4 Dose Schedule 2001 Completed NPI:1 [id number] 00:00:00 1 Hep B, Adol or Pedi 2001 Completed NPI:1 [id number] Dosage 00:00:00 1 Polio (IPV/OPV) 2001 Completed NPI:20981 1878 00:00:00 1 DTAP 2001 Completed NPI:[id number] 00:00:00 1 HIB 4 Dose Schedule 2001 Completed NPI:1 [id number] 00:00:00 1 Hep B, Adol or Pedi 2001 Completed NPI:1 [id number] Dosage 00:00:00 1 Polio (IPV/OPV) 2001 Completed NPI:46526 1878 00:00:00 1 DTAP 2001 Completed NPI:[id number] 00:00:00 1 HIB 4 Dose Schedule 2001 Completed NPI:1 [id number] 00:00:00 1 DTAP 2001 Completed NPI:[id number] 00:00:00 1 Hep B, Adol or Pedi 2001 Completed NPI:1 [id number] Dosage 00:00:00 1 Polio (IPV/OPV) 2001 Completed NPI:63886 1878 00:00:00 1 DTAP 2001 Completed NPI:[id number] 00:00:00 1 HIB 4 Dose Schedule 2001 Completed NPI:1 [id number] 00:00:00 1 Hep B, Adol or Pedi 2001 Completed NPI:1 [id number] Dosage 00:00:00 1 Polio (IPV/OPV) 2001 Completed NPI:[id number] 1878 00:00:00 1 HIB 4 Dose Schedule 2001 Completed NPI:1 [id number] 00:00:00 1 DTAP 2001 Completed NPI:[id number] 00:00:00 1 HIB 4 Dose Schedule 2001 Completed NPI:1 [id number] 00:00:00 1 Hep B, Adol or Pedi 2001 Completed NPI:1 [id number] Dosage 00:00:00 1 Polio (IPV/OPV) 2001 Completed NPI:[id number] 1878 00:00:00 1 DTAP 2001 Completed NPI:[id number] 00:00:00 1 HIB 4 Dose Schedule 2001 Completed NPI:1 [id number] 00:00:00 1 Hep B, Adol or Pedi 2001 Completed NPI:1 [id number] Dosage 00:00:00 1 Hep B, Adol or Pedi 2001 Completed NPI:1 [id number] Dosage 00:00:00 1 Polio (IPV/OPV) 2001 Completed NPI:[id number] 1878 00:00:00 1 DTAP 2001 Completed NPI:[id number] 00:00:00 1 HIB 4 Dose Schedule 2001 Completed NPI:1 [id number] 00:00:00 1 Hep B, Adol or Pedi 2001 Completed NPI:1 [id number] Dosage 00:00:00 1 Polio (IPV/OPV) 2001 Completed NPI:[id number] 1878 00:00:00 1 DTAP 2001 Completed NPI:[id number] 00:00:00 1 Polio (IPV/OPV) 2001 Completed NPI:[id number] 1878 00:00:00 1 HIB 4 Dose Schedule 2001 Completed NPI:1 [id number] 00:00:00 1 Hep B, Adol or Pedi 2001 Completed NPI:1 [id number] Dosage 00:00:00 1 Polio (IPV/OPV) 2001 Completed NPI:[id number] 1878 00:00:00 1 DTAP 2001 Completed NPI:[id number] 00:00:00 1 HIB 4 Dose Schedule 2001 Completed NPI:1 [id number] 00:00:00 1 Hep B, Adol or Pedi 2001 Completed NPI:1 [id number] Dosage 00:00:00 1 Polio (IPV/OPV) 2001 Completed NPI:[id number] 00:00:00 1 DTAP 2001 Completed NPI:[id number] 00:00:00 1 HIB 4 Dose Schedule 2001 Completed NPI:1 [id number] 00:00:00 1 Hep B, Adol or Pedi 2001 Completed NPI:1 [id number] Dosage 00:00:00 1 Polio (IPV/OPV) 2001 Completed NPI:[id number] 00:00:00 1 DTAP 2001 Completed NPI:[id number] 00:00:00 1 HIB 4 Dose Schedule 2001 Completed NPI:1 [id number] 00:00:00 1 Hep B, Adol or Pedi 2001 Completed NPI:1 [id number] Dosage 00:00:00 1 Polio (IPV/OPV) 2001 Completed NPI:[id number] 00:00:00 1 DTAP 2001 Completed NPI:[id number] 00:00:00 1 HIB 4 Dose Schedule 2001 Completed NPI:1 [id number] 00:00:00 1 Hep B, Adol or Pedi 2001 Completed NPI:1 [id number] Dosage 00:00:00 1 Polio (IPV/OPV) 2001 Completed NPI:[id number] 00:00:00 1 DTAP 2001 Completed NPI:[id number] 00:00:00 1 HIB 4 Dose Schedule 2001 Completed NPI:1 [id number] 00:00:00 1 Hep B, Adol or Pedi 2001 Completed NPI:1 [id number] Dosage 00:00:00 1 Polio (IPV/OPV) 2001 Completed NPI:[id number] 00:00:00 1 DTAP 2001 Completed NPI:[id number] 00:00:00 1 DTAP 2001 Completed NPI:[id number] 00:00:00 1 HIB 4 Dose Schedule 2001 Completed NPI:1 [id number] 00:00:00 1 Hep B, Adol or Pedi 2001 Completed NPI:1 [id number] Dosage 00:00:00 1 Polio (IPV/OPV) 2001 Completed NPI:[id number] 00:00:00 1 DTAP 2001 Completed NPI:[id number] 00:00:00 1 HIB 4 Dose Schedule 2001 Completed NPI:1 [id number] 00:00:00 1 HIB 4 Dose Schedule 2001 Completed NPI:1 [id number] 00:00:00 1 Hep B, Adol or Pedi 2001 Completed NPI:1 [id number] Dosage 00:00:00 1 Polio (IPV/OPV) 2001 Completed NPI:[id number] 00:00:00 1 DTAP 2001 Completed NPI:[id number] 00:00:00 1 HIB 4 Dose Schedule 2001 Completed NPI:1 [id number] 00:00:00 1 Hep B, Adol or Pedi 2001 Completed NPI:1 [id number] Dosage 00:00:00 1 Polio (IPV/OPV) 2001 Completed NPI:[id number] 00:00:00 1 Hep B, Adol or Pedi 2001 Completed NPI:1 [id number] Dosage 00:00:00 1 DTAP 2001 Completed NPI:[id number] 00:00:00 1 HIB 4 Dose Schedule 2001 Completed NPI:1 [id number] 00:00:00 1 Hep B, Adol or Pedi 2001 Completed NPI:1 [id number] Dosage 00:00:00 1 Polio (IPV/OPV) 2001 Completed NPI:[id number] 1878 00:00:00 1 DTAP 2001 Completed NPI:[id number] 00:00:00 1 HIB 4 Dose Schedule 2001 Completed NPI:1 [id number] 00:00:00 1 Hep B, Adol or Pedi 2001 Completed NPI:1 [id number] Dosage 00:00:00 1 Polio (IPV/OPV) 2001 Completed NPI:[id number] 00:00:00 1 Polio (IPV/OPV) 2001 Completed NPI:[id number] 1878 00:00:00 1 DTAP 2001 Completed NPI:[id number] 00:00:00 1 HIB 4 Dose Schedule 2001 Completed NPI:1 [id number] 00:00:00 1 Hep B, Adol or Pedi 2001 Completed NPI:1 [id number] Dosage 00:00:00 1 Polio (IPV/OPV) 2001 Completed NPI:[id number] 00:00:00 1 DTAP 2001 Completed NPI:[id number] 00:00:00 1 HIB 4 Dose Schedule 2001 Completed NPI:1 [id number] 00:00:00 1 Hep B, Adol or Pedi 2001 Completed NPI:1 [id number] Dosage 00:00:00 1 Polio (IPV/OPV) 2001 Completed NPI:[id number] 1878 00:00:00 1 DTAP 2001 Completed NPI:[id number] 00:00:00 1 HIB 4 Dose Schedule 2001 Completed NPI:1 [id number] 00:00:00 1 Hep B, Adol or Pedi 2001 Completed NPI:1 [id number] Dosage 00:00:00 1 Polio (IPV/OPV) 2001 Completed NPI:[id number] 1878 00:00:00 1 DTAP 2001 Completed NPI:[id number] 00:00:00 1 HIB 4 Dose Schedule 2001 Completed NPI:1 [id number] 00:00:00 1 Hep B, Adol or Pedi 2001 Completed NPI:1 [id number] Dosage 00:00:00 1 Polio (IPV/OPV) 2001 Completed NPI:[id number] 1878 00:00:00 1 DTAP 2001 Completed NPI:[id number] 00:00:00 1 DTAP 2001 Completed NPI:[id number] 00:00:00 1 HIB 4 Dose Schedule 2001 Completed NPI:1 [id number] 00:00:00 1 Hep B, Adol or Pedi 2001 Completed NPI:1 [id number] Dosage 00:00:00 1 Polio (IPV/OPV) 2001 Completed NPI:[id number] 1878 00:00:00 1 HIB 4 Dose Schedule 2001 Completed NPI:1 [id number] 00:00:00 1 DTAP 2001 Completed NPI:[id number] 00:00:00 1 HIB 4 Dose Schedule 2001 Completed NPI:1 [id number] 00:00:00 1 Hep B, Adol or Pedi 2001 Completed NPI:1 [id number] Dosage 00:00:00 1 Polio (IPV/OPV) 2001 Completed NPI:[id number] 1878 00:00:00 1 DTAP 2001 Completed NPI:[id number] 00:00:00 1 HIB 4 Dose Schedule 2001 Completed NPI:1 [id number] 00:00:00 1 Hep B, Adol or Pedi 2001 Completed NPI:1 [id number] Dosage 00:00:00 1 Polio (IPV/OPV) 2001 Completed NPI:[id number] 1878 00:00:00 1 Hep B, Adol or Pedi 2001 Completed NPI:1 [id number] Dosage 00:00:00 1 DTAP 2001 Completed NPI:[id number] 00:00:00 1 HIB 4 Dose Schedule 2001 Completed NPI:1 [id number] 00:00:00 1 Hep B, Adol or Pedi 2001 Completed NPI:1 [id number] Dosage 00:00:00 1 Polio (IPV/OPV) 2001 Completed NPI:[id number] 00:00:00 1 DTAP 2001 Completed NPI:[id number] 00:00:00 1 HIB 4 Dose Schedule 2001 Completed NPI:1 [id number] 00:00:00 1 Polio (IPV/OPV) 2001 Completed NPI:[id number] 1878 00:00:00 1 Hep B, Adol or Pedi 2001 Completed NPI:1 [id number] Dosage 00:00:00 1 Polio (IPV/OPV) 2001 Completed NPI:[id number] 1878 00:00:00 1 DTAP 2001 Completed NPI:[id number] 00:00:00 1 HIB 4 Dose Schedule 2001 Completed NPI:1 [id number] 00:00:00 1 Hep B, Adol or Pedi 2001 Completed NPI:1 [id number] Dosage 00:00:00 1 Polio (IPV/OPV) 2001 Completed NPI:[id number] 1878 00:00:00 1 DTAP 2001 Completed NPI:[id number] 00:00:00 1 HIB 4 Dose Schedule 2001 Completed NPI:1 [id number] 00:00:00 1 Hep B, Adol or Pedi 2001 Completed NPI:1 [id number] Dosage 00:00:00 1 Polio (IPV/OPV) 2001 Completed NPI:[id number] 1878 00:00:00 1 DTAP 2001 Completed NPI:[id number] 00:00:00 1 HIB 4 Dose Schedule 2001 Completed NPI:1 [id number] 00:00:00 1 Hep B, Adol or Pedi 2001 Completed NPI:1 [id number] Dosage 00:00:00 1 Polio (IPV/OPV) 2001 Completed NPI:[id number] 1878 00:00:00 1 DTAP 2001 Completed NPI:[id number] 00:00:00 1 HIB 4 Dose Schedule 2001 Completed NPI:1 [id number] 00:00:00 1 Hep B, Adol or Pedi 2001 Completed NPI:1 [id number] Dosage 00:00:00 1 Polio (IPV/OPV) 2001 Completed NPI:[id number] 1878 00:00:00 1 DTAP 2001 Completed NPI:[id number] 00:00:00 1 DTAP 2001 Completed NPI:[id number] 00:00:00 1 HIB 4 Dose Schedule 2001 Completed NPI:1 [id number] 00:00:00 1 Hep B, Adol or Pedi 2001 Completed NPI:1 [id number] Dosage 00:00:00 1 Polio (IPV/OPV) 2001 Completed NPI:[id number] 1878 00:00:00 1 HIB 4 Dose Schedule 2001 Completed NPI:1 [id number] 00:00:00 1 DTAP 2001 Completed NPI:[id number] 00:00:00 1 HIB 4 Dose Schedule 2001 Completed NPI:1 [id number] 00:00:00 1 Hep B, Adol or Pedi 2001 Completed NPI:1 [id number] Dosage 00:00:00 1 Polio (IPV/OPV) 2001 Completed NPI:[id number] 1878 00:00:00 1 Hep B, Adol or Pedi 2001 Completed NPI:1 [id number] Dosage 00:00:00 1 Polio (IPV/OPV) 2001 Completed NPI:[id number] 1878 00:00:00 1 DTAP 2001 Completed NPI:[id number] 00:00:00 1 HIB 4 Dose Schedule 2001 Completed NPI:1 [id number] 00:00:00 1 Hep B, Adol or Pedi 2001 Completed NPI:1 [id number] Dosage 00:00:00 1 Polio (IPV/OPV) 2001 Completed NPI:[id number] 1878 00:00:00 1 DTAP 2001 Completed NPI:[id number] 00:00:00 1 HIB 4 Dose Schedule 2001 Completed NPI:1 [id number] 00:00:00 1 Hep B, Adol or Pedi 2001 Completed NPI:1 [id number] Dosage 00:00:00 1 Polio (IPV/OPV) 2001 Completed NPI:[id number] 1878 00:00:00 1 DTAP 2001 Completed NPI:[id number] 00:00:00 1 HIB 4 Dose Schedule 2001 Completed NPI:1 [id number] 00:00:00 1 Hep B, Adol or Pedi 2001 Completed NPI:1 [id number] Dosage 00:00:00 1 Polio (IPV/OPV) 2001 Completed NPI:[id number] 1878 00:00:00 1 DTAP 2001 Completed NPI:[id number] 00:00:00 1 HIB 4 Dose Schedule 2001 Completed NPI:1 [id number] 00:00:00 1 Hep B, Adol or Pedi 2001 Completed NPI:1 [id number] Dosage 00:00:00 1 Polio (IPV/OPV) 2001 Completed NPI:[id number] 1878 00:00:00 1 DTAP 2001 Completed NPI:[id number] 00:00:00 1 HIB 4 Dose Schedule 2001 Completed NPI:1 [id number] 00:00:00 1 Hep B, Adol or Pedi 2001 Completed NPI:1 [id number] Dosage 00:00:00 1 Polio (IPV/OPV) 2001 Completed NPI:[id number] 1878 00:00:00 1 DTAP 2001 Completed NPI:[id number] 00:00:00 1 HIB 4 Dose Schedule 2001 Completed NPI:1 [id number] 00:00:00 1 Hep B, Adol or Pedi 2001 Completed NPI:1 [id number] Dosage 00:00:00 1 Polio (IPV/OPV) 2001 Completed NPI:[id number] 1878 00:00:00 1 DTAP 2001 Completed NPI:[id number] 00:00:00 1 HIB 4 Dose Schedule 2001 Completed NPI:1 [id number] 00:00:00 1 Hep B, Adol or Pedi 2001 Completed NPI:1 [id number] Dosage 00:00:00 1 Polio (IPV/OPV) 2001 Completed NPI:[id number] 1878 00:00:00 1 DTAP 2001 Completed NPI:[id number] 00:00:00 1 HIB 4 Dose Schedule 2001 Completed NPI:1 [id number] 00:00:00 1 Hep B, Adol or Pedi 2001 Completed NPI:1 [id number] Dosage 00:00:00 1 Polio (IPV/OPV) 2001 Completed NPI:[id number] 1878 00:00:00 1 DTAP 2001 Completed NPI:[id number] 00:00:00 1 HIB 4 Dose Schedule 2001 Completed NPI:1 [id number] 00:00:00 1 Hep B, Adol or Pedi 2001 Completed NPI:1 [id number] Dosage 00:00:00 1 Polio (IPV/OPV) 2001 Completed NPI:[id number] 1878 00:00:00 1 DTAP 2001 Completed NPI:[id number] 00:00:00 1 HIB 4 Dose Schedule 2001 Completed NPI:1 [id number] 00:00:00 1 Hep B, Adol or Pedi 2001 Completed NPI:1 [id number] Dosage 00:00:00 1 Polio (IPV/OPV) 2001 Completed NPI:[id number] 1878 00:00:00 1 DTAP 2001 Completed NPI:[id number] 00:00:00 1 HIB 4 Dose Schedule 2001 Completed NPI:1 [id number] 00:00:00 1 Hep B, Adol or Pedi 2001 Completed NPI:1 [id number] Dosage 00:00:00 1 Polio (IPV/OPV) 2001 Completed NPI:[id number] 1878 00:00:00 1 DTAP 2001 Completed NPI:[id number] 00:00:00 1 HIB 4 Dose Schedule 2001 Completed NPI:1 [id number] 00:00:00 1 Hep B, Adol or Pedi 2001 Completed NPI:1 [id number] Dosage 00:00:00 1 Polio (IPV/OPV) 2001 Completed NPI:[id number] 1878 00:00:00 1 DTAP 2001 Completed NPI:[id number] 00:00:00 1 HIB 4 Dose Schedule 2001 Completed NPI:1 [id number] 00:00:00 1 Hep B, Adol or Pedi 2001 Completed NPI:1 [id number] Dosage 00:00:00 1 Polio (IPV/OPV) 2001 Completed NPI:[id number] 1878 00:00:00 1 DTAP 2001 Completed NPI:[id number] 00:00:00 1 HIB 4 Dose Schedule 2001 Completed NPI:1 [id number] 00:00:00 1 Hep B, Adol or Pedi 2001 Completed NPI:1 [id number] Dosage 00:00:00 1 Polio (IPV/OPV) 2001 Completed NPI:[id number] 1878 00:00:00 1 DTAP 2001 Completed NPI:[id number] 00:00:00 1 HIB 4 Dose Schedule 2001 Completed NPI:1 [id number] 00:00:00 1 Hep B, Adol or Pedi 2001 Completed NPI:1 [id number] Dosage 00:00:00 1 Polio (IPV/OPV) 2001 Completed NPI:[id number] 1878 00:00:00 1 DTAP 2001 Completed NPI:[id number] 00:00:00 1 DTAP 2001 Completed NPI:[id number] 00:00:00 1 HIB 4 Dose Schedule 2001 Completed NPI:1 [id number] 00:00:00 1 Hep B, Adol or Pedi 2001 Completed NPI:1 [id number] Dosage 00:00:00 1 Polio (IPV/OPV) 2001 Completed NPI:[id number] 1878 00:00:00 1 DTAP 2001 Completed NPI:[id number] 00:00:00 1 HIB 4 Dose Schedule 2001 Completed NPI:1 [id number] 00:00:00 1 Hep B, Adol or Pedi 2001 Completed NPI:1 [id number] Dosage 00:00:00 1 HIB 4 Dose Schedule 2001 Completed NPI:1 [id number] 00:00:00 1 Polio (IPV/OPV) 2001 Completed NPI:[id number] 1878 00:00:00 1 DTAP 2001 Completed NPI:[id number] 00:00:00 1 HIB 4 Dose Schedule 2001 Completed NPI:1 [id number] 00:00:00 1 Hep B, Adol or Pedi 2001 Completed NPI:1 [id number] Dosage 00:00:00 1 Polio (IPV/OPV) 2001 Completed NPI:[id number] 1878 00:00:00 1 DTAP 2001 Completed NPI:[id number] 00:00:00 1 Hep B, Adol or Pedi 2001 Completed NPI:1 [id number] Dosage 00:00:00 1 HIB 4 Dose Schedule 2001 Completed NPI:1 [id number] 00:00:00 1 Hep B, Adol or Pedi 2001 Completed NPI:1 [id number] Dosage 00:00:00 1 Polio (IPV/OPV) 2001 Completed NPI:[id number] 1878 00:00:00 1 DTAP 2001 Completed NPI:[id number] 00:00:00 1 HIB 4 Dose Schedule 2001 Completed NPI:1 [id number] 00:00:00 1 Hep B, Adol or Pedi 2001 Completed NPI:1 [id number] Dosage 00:00:00 1 Polio (IPV/OPV) 2001 Completed NPI:[id number] 1878 00:00:00 1 Hep B, Adol or Pedi 2001 Completed NPI:1 [id number] Dosage 00:00:00 1 Hep B, Adol or Pedi 2001 Completed NPI:1 [id number] Dosage 00:00:00 1 Hep B, Adol or Pedi 2001 Completed NPI:1 [id number] Dosage 00:00:00 1 Hep B, Adol or Pedi 2001 Completed NPI:1 [id number] Dosage 00:00:00 1 Hep B, Adol or Pedi 2001 Completed NPI:1 [id number] Dosage 00:00:00 1 Hep B, Adol or Pedi 2001 Completed NPI:1 [id number] Dosage 00:00:00 1 Hep B, Adol or Pedi 2001 Completed NPI:1 [id number] Dosage 00:00:00 1 Hep B, Adol or Pedi 2001 Completed NPI:1 [id number] Dosage 00:00:00 1 Hep B, Adol or Pedi 2001 Completed NPI:1 [id number] Dosage 00:00:00 1 Hep B, Adol or Pedi 2001 Completed NPI:1 [id number] Dosage 00:00:00 1 Hep B, Adol or Pedi 2001 Completed NPI:1 [id number] Dosage 00:00:00 1 Hep B, Adol or Pedi 2001 Completed NPI:1 [id number] Dosage 00:00:00 1 Hep B, Adol or Pedi 2001 Completed NPI:1 [id number] Dosage 00:00:00 1 Hep B, Adol or Pedi 2001 Completed NPI:1 [id number] Dosage 00:00:00 1 Hep B, Adol or Pedi 2001 Completed NPI:1 [id number] Dosage 00:00:00 1 Hep B, Adol or Pedi 2001 Completed NPI:1 [id number] Dosage 00:00:00 1 Hep B, Adol or Pedi 2001 Completed NPI:1 [id number] Dosage 00:00:00 1 Hep B, Adol or Pedi 2001 Completed NPI:1 [id number] Dosage 00:00:00 1 Hep B, Adol or Pedi 2001 Completed NPI:1 [id number] Dosage 00:00:00 1 Hep B, Adol or Pedi 2001 Completed NPI:1 [id number] Dosage 00:00:00 1 Hep B, Adol or Pedi 2001 Completed NPI:1 [id number] Dosage 00:00:00 1 Hep B, Adol or Pedi 2001 Completed NPI:1 [id number] Dosage 00:00:00 1 Hep B, Adol or Pedi 2001 Completed NPI:1 [id number] Dosage 00:00:00 1 Hep B, Adol or Pedi 2001 Completed NPI:1 [id number] Dosage 00:00:00 1 Hep B, Adol or Pedi 2001 Completed NPI:1 [id number] Dosage 00:00:00 1 Hep B, Adol or Pedi 2001 Completed NPI:1 [id number] Dosage 00:00:00 1 Hep B, Adol or Pedi 2001 Completed NPI:1 [id number] Dosage 00:00:00 1 Hep B, Adol or Pedi 2001 Completed NPI:1 [id number] Dosage 00:00:00 1 Hep B, Adol or Pedi 2001 Completed NPI:1 [id number] Dosage 00:00:00 1 Hep B, Adol or Pedi 2001 Completed NPI:1 [id number] Dosage 00:00:00 1 Hep B, Adol or Pedi 2001 Completed NPI:1 [id number] Dosage 00:00:00 1 Hep B, Adol or Pedi 2001 Completed NPI:1 [id number] Dosage 00:00:00 1 Hep B, Adol or Pedi 2001 Completed NPI:1 [id number] Dosage 00:00:00 1 Hep B, Adol or Pedi 2001 Completed NPI:1 [id number] Dosage 00:00:00 1 Hep B, Adol or Pedi 2001 Completed NPI:1 [id number] Dosage 00:00:00 1 Hep B, Adol or Pedi 2001 Completed NPI:1 [id number] Dosage 00:00:00 1 Hep B, Adol or Pedi 2001 Completed NPI:1 [id number] Dosage 00:00:00 1 Hep B, Adol or Pedi 2001 Completed NPI:1 [id number] Dosage 00:00:00 1 Hep B, Adol or Pedi 2001 Completed NPI:1 [id number] Dosage 00:00:00 1 Hep B, Adol or Pedi 2001 Completed NPI:1 [id number] Dosage 00:00:00 1 Hep B, Adol or Pedi 2001 Completed NPI:1 [id number] Dosage 00:00:00 1 Hep B, Adol or Pedi 2001 Completed NPI:1 [id number] Dosage 00:00:00 1 Hep B, Adol or Pedi 2001 Completed NPI:1 [id number] Dosage 00:00:00 1 Hep B, Adol or Pedi 2001 Completed NPI:1 [id number] Dosage 00:00:00 1 Hep B, Adol or Pedi 2001 Completed NPI:1 [id number] Dosage 00:00:00 1 Hep B, Adol or Pedi 2001 Completed NPI:1 [id number] Dosage 00:00:00 1 Hep B, Adol or Pedi 2001 Completed NPI:1 [id number] Dosage 00:00:00 1 Hep B, Adol or Pedi 2001 Completed NPI:1 [id number] Dosage 00:00:00 1 Hep B, Adol or Pedi 2001 Completed NPI:1 [id number] Dosage 00:00:00 1 Hep B, Adol or Pedi 2001 Completed NPI:1 [id number] Dosage 00:00:00 1 Vital Signs Vital Name Observation Time Observation Value Comments Source Systolic blood pressure 2020-08-20 14:45:00 119 mm[Hg] Diastolic blood 2020-08-20 14:45:00 75 mm[Hg] NPI:1 [id number] pressure Heart rate 2020-08-20 14:45:00 80 /min NPI:1831 [id number] Body temperature 2020-08-20 14:45:00 36.78 Lilo Body height 2020-08-20 14:45:00 177.8 cm NPI:1831 [id number] Body weight 2020-08-20 14:45:00 131.588 kg NPI:1831 [id number] BMI 2020-08-20 14:45:00 41.63 kg/m2 NPI:1831 386188 Oxygen saturation in 2020-08-20 14:45:00 99 /min Arterial blood by Pulse oximetry Systolic blood pressure 2020-07-09 15:47:00 123 mm[Hg] Diastolic blood 2020-07-09 15:47:00 80 mm[Hg] NPI:1 [id number] pressure Heart rate 2020-07-09 15:47:00 92 /min NPI:1831 [id number] Body temperature 2020-07-09 15:47:00 37 Lilo Respiratory rate 2020-07-09 15:47:00 18 /min Body height 2020-07-09 15:47:00 175.3 cm NPI:1831 364011 Body weight 2020-07-09 15:47:00 127.914 kg NPI:1831 [id number] BMI 2020-07-09 15:47:00 41.64 kg/m2 NPI:1831 217609 Oxygen saturation in 2020-07-09 15:47:00 98 /min Arterial blood by Pulse oximetry Systolic blood pressure 2020-06-25 16:42:00 120 mm[Hg] Diastolic blood 2020-06-25 16:42:00 77 mm[Hg] NPI:1 [id number] pressure Heart rate 2020-06-25 16:42:00 72 /min NPI:1831 133393 Body temperature 2020-06-25 16:42:00 37 Lilo Respiratory rate 2020-06-25 16:42:00 18 /min Body height 2020-06-25 16:42:00 177.8 cm NPI:1831 390543 Body weight 2020-06-25 16:42:00 127.914 kg NPI:1831 587786 BMI 2020-06-25 16:42:00 40.46 kg/m2 NPI:1831 [id number] Oxygen saturation in 2020-06-25 16:42:00 100 /min Arterial blood by Pulse oximetry Systolic blood pressure 2020-06-17 12:15:00 138 mm[Hg] Diastolic blood 2020-06-17 12:15:00 83 mm[Hg] NPI:1 [id number] pressure Heart rate 2020-06-17 12:15:00 64 /min NPI:1831 [id number] Body temperature 2020-06-17 12:15:00 36.44 Lilo Respiratory rate 2020-06-17 12:15:00 18 /min Body height 2020-06-17 12:15:00 177.8 cm NPI:1831 138826 Body weight 2020-06-17 12:15:00 127.007 kg NPI:1831 196072 BMI 2020-06-17 12:15:00 40.18 kg/m2 NPI:1831 [id number] Oxygen saturation in 2020-06-17 12:15:00 99 /min Arterial blood by Pulse oximetry Systolic blood pressure 2020-05-14 17:54:00 115 mm[Hg] Diastolic blood 2020-05-14 17:54:00 67 mm[Hg] NPI:1 [id number] pressure Heart rate 2020-05-14 17:54:00 77 /min NPI:1831 031559 Body temperature 2020-05-14 17:54:00 36.67 Lilo Respiratory rate 2020-05-14 17:54:00 18 /min Body height 2020-05-14 17:54:00 177.8 cm NPI:1831 859879 Body weight 2020-05-14 17:54:00 128.323 kg NPI:1831 196629 BMI 2020-05-14 17:54:00 40.59 kg/m2 NPI:1831 343694 Oxygen saturation in 2020-05-14 17:54:00 100 /min Arterial blood by Pulse oximetry Systolic blood pressure 2020-05-14 17:54:00 115 mm[Hg] Diastolic blood 2020-05-14 17:54:00 67 mm[Hg] NPI:1 [id number] pressure Heart rate 2020-05-14 17:54:00 77 /min NPI:1831 142025 Body temperature 2020-05-14 17:54:00 36.67 Lilo Respiratory rate 2020-05-14 17:54:00 18 /min Body height 2020-05-14 17:54:00 177.8 cm NPI:1831 516262 Body weight 2020-05-14 17:54:00 128.323 kg NPI:1831 822588 BMI 2020-05-14 17:54:00 40.59 kg/m2 NPI:1831 433795 Oxygen saturation in 2020-05-14 17:54:00 100 /min Arterial blood by Pulse oximetry Systolic blood pressure 2020-01-20 19:46:00 140 mm[Hg] Diastolic blood 2020-01-20 19:46:00 79 mm[Hg] NPI:1 [id number] pressure Heart rate 2020-01-20 19:46:00 99 /min NPI:1831 828783 Body temperature 2020-01-20 19:46:00 37.44 Lilo Respiratory rate 2020-01-20 19:46:00 18 /min Body weight 2020-01-20 19:46:00 126.554 kg NPI:1831 020581 Oxygen saturation in 2020-01-20 19:46:00 97 /min Arterial blood by Pulse oximetry Systolic blood pressure 2020-01-02 14:09:00 120 mm[Hg] Diastolic blood 2020-01-02 14:09:00 83 mm[Hg] NPI:1 [id number] pressure Heart rate 2020-01-02 14:09:00 79 /min NPI:1831 212597 Body temperature 2020-01-02 14:09:00 36.67 Lilo Respiratory rate 2020-01-02 14:09:00 18 /min Body height 2020-01-02 14:09:00 175.3 cm NPI:1831 [id number] Body weight 2020-01-02 14:09:00 126.554 kg NPI:1831 810368 BMI 2020-01-02 14:09:00 41.20 kg/m2 NPI:1831 285372 Oxygen saturation in 2020-01-02 14:09:00 100 /min Arterial blood by Pulse oximetry Systolic blood pressure 2019-11-23 15:43:00 132 mm[Hg] Diastolic blood 2019-11-23 15:43:00 80 mm[Hg] NPI:1 [id number] pressure Heart rate 2019-11-23 15:43:00 87 /min NPI:1831 653117 Body temperature 2019-11-23 15:43:00 37.22 Lilo Respiratory rate 2019-11-23 15:43:00 20 /min Body height 2019-11-23 15:43:00 172.5 cm NPI:1831 732406 Body weight 2019-11-23 15:43:00 126.724 kg NPI:1831 928408 BMI 2019-11-23 15:43:00 42.59 kg/m2 NPI:1831 302864 Body height 2019-08-17 16:00:00 177.8 cm NPI:1831 613895 Body weight 2019-08-17 16:00:00 113.399 kg NPI:1831 564573 BMI 2019-08-17 16:00:00 35.87 kg/m2 NPI:1831 827708 Procedures Procedure Date / Time Performed Performing Clinician Donn reeves POCT TEST 2020-06-17 11:30:00 Maria R He NPI :[id number] ASSIGNMENT OF BENEFITS 2020-06-17 10:54:43 Doctor Unassigned, No Name DISCLOSURE AND CONSENT, 2020-05-14 06:01:00 Doctor Unassigned, N o MEDICAL AND SURGICAL Name PROCEDURES XR KNEE 3 VW RIGHT 2020-01-20 20:20:03 Leyda Juares NPI:[id number] CONSENT/REFUSAL FOR 2020-01-20 19:36:17 Doctor Unassigned, 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:[id number] DIAGNOSIS AND TREATMENT Name DISCLOSURE AND CONSENT, 2020-01-02 05:01:00 Doctor Unassigned, N o MEDICAL AND SURGICAL Name PROCEDURES MENINGOCOCCAL B VACCINE, 2019-11-23 15:55:20 Izzy Villanueva PI:[id number] OMV, 2 DOSE, IM NOTICE OF PRIVACY 2019-11-23 15:23:48 Doctor Unassigned, No PRACTICES Name Encounters Start End Encounter Admission Attending Care Care Encounter Source Date/Time Date/Time Type Type Clinicians Facility Department ID 2021-05-13 Outpatient [facility] [id number] NPI:174 11:52:27 [id number] 2021-02-15 Outpatient ELVIE FAN [facility] [id number] NPI:183 01:09:16 [id number] 4502-10-29 Emergency [facility] [id number] NPI:183 20:55:59 [id number] 1063-05-05 2020-08-20 Office Elvie Fan [facility] 1.2.840.114 [id number] NPI:183 09:39:34 10:17:52 Visit E SPECIALTY [id number] [id number] CARE 4.2.7.2.686 CENTER AT [id number] [place] 2020-08-20 2020-08-20 Outpatient ELVIE DOOLEY [facility] [id number] NPI:183 09:45:00 09:45:00 [id number] 2020-08-20 2020-08-20 Outpatient R ELVIE FAN [facility] [id number] NPI:183 09:45:00 09:45:00 [id number] 1 2020-08-12 2020-08-12 Outpatient [facility] [id number] NPI:174 00:00:00 00:00:00 [id number] 2020-07-23 2020-07-23 [facility] [id number] NPI:183 10:45:00 10:45:00 [id number] 1 2020-07-23 2020-07-23 Outpatient R ELVIE FAN [facility] [id number] NPI:183 10:45:00 10:45:00 [id number] 1 2020-07-16 2020-07-16 Outpatient ELVIE DOOLEY [facility] [id number] NPI:183 09:45:00 09:45:00 [id number] 1 2020-07-16 2020-07-16 [id number] NPI:183 09:45:00 09:45:00 [id number] 1 2020-07-16 2020-07-16 Telemedici Mita [facility] 1.2.840.114 [id number] NPI:183 07:55:20 08:10:20 ne Visit E SPECIALTY 350.1.13.10 [id number] CARE 4.2.7.2.686 CENTER AT [id number] [place] FLOOD 2020-07-09 2020-07-09 Office Mita [facility] 1.2.840.114 [id number] NPI:183 10:42:26 11:51:21 Visit E SPECIALTY 350.1.13.10 [id number] CARE 4.2.7.2.686 [place] AT [id number] GRACE FLOOD 2020-07-09 2020-07-09 Outpatient R ELVIE FAN [facility] [id number] NPI:183 10:45:00 10:45:00 [id number] 1 2020-07-09 2020-07-09 Outpatient Rebeca HOFFMAN [facility] [id number] NPI:183 09:00:00 09:00:00 WALI [id number] 1 2020-06-25 2020-06-25 [facility] Mita [facility] 1.2.840.114 [id number] NPI:183 10:31:50 11:20:56 Visit E SPECIALTY 350.1.13.10 [id number] [facility] 4.2.7.2.686 [place] AT [id number] GRACE FLOOD 2020-06-25 2020-06-25 Outpatient R ELVIE FAN [facility] [id number] NPI:183 10:45:00 10:45:00 [id number] 2020-06-25 2020-06-25 Outpatient R ELVIE FAN [facility] [id number] NPI:183 10:45:00 10:45:00 [id number] 1 2020-06-20 2020-06-20 [facility] [id number] NPI:183 13:00:00 13:00:00 DANIS [id number] 2020-06-20 2020-06-20 Outpatient Rebeca ZHONG [facility] [id number] NPI:183 13:00:00 13:00:00 DANIS [id number] 2020-06-17 2020-06-17 [facility] Mita [facility] 1.2.840.114 [id number] NPI:183 04:54:00 12:53:00 Encounter E Health 350.1.13.10 [id number] jj 4.2.7.[id number] ([facility]) 2020-06-17 2020-06-17 Juan RUSH 1.2.840.114 [id number] NPI:183 00:00:00 00:00:00 Only Unassigned, MELBA 350.1.13.10 [id number] [facility] 4.2.7.2.686 [id number] 2020-06-17 2020-06-17 Telephone Elvie Fan [facility] 1.2.840.114 [id number] NPI:183 00:00:00 00:00:00 E SPECIALTY 350.1.13.10 [id number] CARE 4.2.7.2.686 [place] AT [id number] [place] [address] 2020-06-16 2020-06-16 Nurse ADRI Manrique 1.2.840.114 [id number] NPI:183 00:00:00 00:00:00 Triage Randi REILLY 350.1.13.10 [id number] [facility] 4.2.7.2.686 [id number] 2020-06-13 2020-06-13 Laboratory Only, Adc Test [facility] 1.2.840. 114 [id number] NPI:183 09:42:52 09:57:52 Only Dhiraj Wiseman 350.1.13.10 [id number] [place] [id number] [place] [id number] 2020-06-13 2020-06-13 Outpatient [facility] [id number] NPI:183 09:45:00 09:45:00 [id number] 1 2020-06-13 2020-06-13 Outpatient R SHAYLEE [facility] [id number] NPI:183 09:45:00 09:45:00 DHIRAJ [id number] 1 2020-06-11 2020-06-11 Outpatient R ELVIE FAN [facility] 270 [id number] NPI:183 09:15:00 09:15:00 [id number] 2020-06-11 2020-06-11 Outpatient R ELVIE FAN [facility] [id number] NPI:183 09:15:00 09:15:00 [id number] 2020-06-11 2020-06-11 Telemedici Elvie Fan [facility] 1.2.840.114 [id number] NPI:183 07:53:33 08:08:33 ne Visit E SPECIALTY 350.1.13.10 [id number] CARE 4.2.7.2.686 CENTER AT [id number] [facility] Castellon [facility] 2020-06-10 2020-06-10 [facility] [id number] NPI:174 00:00:00 00:00:00 [id number] 2020-05-14 2020-05-14 [facility] Mita [facility] 1.2.840.114 [id number] NPI:183 11:37:54 11:37:54 Visit E SPECIALTY 350.1.13.10 [id number] CARE 4.2.7.2.686 CENTER AT [id number] GRACE Castellon [facility] 2020-05-14 2020-05-14 [facility] 12.840.114 [id number] 11:37:54 11:37:54 Visit E SPECIALTY 350.1.13.10 CARE 4.2.7.2.686 CENTER AT [id number] GRACE Castellon [facility] 2020-05-14 2020-05-14 [facility] 270 [id number] NPI:183 11:30:00 11:30:00 [id number] 2020-05-14 2020-05-14 [facility] [id number] NPI:183 11:30:00 11:30:00 [id number] 1 2020-05-14 2020-05-14 Orders Doctor [facility]USH 1.2.840.114 [id number] NPI:183 00:00:00 00:00:00 Only UnassignedMELBA 350.1.13.10 [id number] [facility] 4.2.7.2.686 [id number] [id number] 2020-05-14 2020-05-14 Orders Doctor ADRI 1.2.840.114 [id number] 00:00:00 00:00:00 Only UnassignedMELBA 350.1.13.10 [facility] 4.2.7.2.686 [id number] 2020-04-21 2020-04-21 [facility] [id number] NPI:174 00:00:00 00:00:00 [id number] 2020-04-02 2020-04-02 Prep For Elvie Fan [facility] 12.840.114 [id number] NPI:183 00:00:00 00:00:00 Surgery E SPECIALTY 350.1.13.10 [id number] [facility] 4.2.7.2.686 CENTER AT [id number] [facility] FLOOD 2020-03-26 2020-03-26 Outpatient R ELVIE FAN [facility] 270 [id number] NPI:183 09:00:00 09:00:00 [id number] 1 2020-03-26 2020-03-26 Outpatient ELVIE DOOLEY [facility] [id number] NPI:183 09:00:00 09:00:00 [id number] 1 2020-03-26 2020-03-26 Telemedici Elvie Fan [address]114 [id number] NPI:183 08:01:41 08:16:41 ne Visit E SPECIALTY 350.1.13.10 [id number] [facility] 4.2.7.2.686 CENTER AT [id number] [facility] FLOOD 2020-03-20 2020-03-20 Outpatient [facility] [id number] NPI:174 00:00:00 00:00:00 [id number] 2020-03-11 2020-03-11 Outpatient [facility] [id number] NPI:174 00:00:00 00:00:00 [id number] 9 2020-02-28 2020-02-28 Outpatient [facility] [id number] NPI:174 00:00:00 00:00:00 [id number] 2020-02-18 2020-02-18 Outpatient [facility] [id number] NPI:174 00:00:00 00:00:00 [id number] 2020-02-12 2020-02-12 Outpatient [facility] [id number] NPI:174 00:00:00 00:00:00 [id number] 2020-01-30 2020-01-30 Outpatient R ELVIE FAN [facility] [id number] [id number] NPI:183 09:45:00 09:45:00 [id number] 2020-01-30 2020-01-30 Outpatient R MITA [facility] [id number] NPI:183 09:45:00 09:45:00 [id number] 2020-01-30 2020-01-30 ADRI Adler 2.367.506 [id number] NPI:183 00:00:00 00:00:00 Jocelin REILLY 350.1.13.[id number]686 [id number] 2020-01-29 2020-01-29 Outpatient [facility] [id number] NPI:174 00:00:00 00:00:00 [id number] 2020-01-25 2020-01-25 Outpatient R MITA [facility] [id number] [id number] NPI:183 14:40:00 14:40:00 [id number] 2020-01-25 2020-01-25 [facility] [id number] NPI:183 14:40:00 14:40:00 [id number] 2020-01-23 2020-01-23 [address]1 14 [id number] NPI:183 07:42:59 20:30:59 nd Visit THE [facility] 350.1.13.[id number]686 [id number] 2020-01-23 2020-01-23 Outpatient Rebeca FAN [facility] 270 419N-[id number] NPI:183 09:15:00 09:15:00 [id number] 2020-01-23 2020-01-23 [facility] [id number] NPI:183 09:15:00 09:15:00 [id number] 2020-01-23 2020-01-23 Outpatient STLMLC STLMLC [id number] NPI:174 00:00:00 00:00:00 [id number] 2020-01-22 2020-01-22 Outpatient STLMLC STLMLC [id number] NPI:174 00:00:00 00:00:00 [id number] 2020-01-20 2020-01-20 Emergency [facility] [id number] NPI:183 14:48:00 16:37:00 Leyda Rodriges 350.1.13.[id number]2.7.2.686 [place] [id number] 084 2020 2020 Telephone Elvie Fan [facility] 1.2.840.114 [id number] NPI:183 00:00:00 00:00:00 E SPECIALTY 350.1.13.10 [id number] [facility] 4.2.7.2.686 CENTER AT [id number] [place] [facility] 2020-01-16 2020-01-16 Telephone Claudio [facility] 1.2.840.114 [id number] NPI:183 00:00:00 00:00:00 Izzy Saldivar [facility] 350.1.13.10 [id number] [place] [address].2.7.2.686 MATERNAL [id number] & CHILD [address] [place] [address] 2020-01-02 2020-01-02 Office Mita [facility] 1.2.840.114 [id number] NPI:183 09:01:49 17:14:00 Visit E SPECIALTY 350.1.13.10 [id number] [facility] 4.2.7.2.686 CENTER AT [id number] [place] FLOOD 2020-01-02 2020-01-02 [facility] 270 [id number] NPI:183 09:15:00 09:15:00 [id number] 2020-01-02 2020-01-02 Outpatient R MITA [facility] [id number] NPI:183 09:15:00 09:15:00 [id number] 1 2020-01-02 2020-01-02 Orders Doctor RUSH 1.2.840.114 [id number] NPI:183 00:00:00 00:00:00 Only Unassigned, MELBA 350.1.13.10 [id number] [place] [facility] 4.2.7.2.686 [id number] 009 2019-12-05 2019-12-05 Outpatient R MITA [facility] 270 [id number] NPI:183 10:00:00 10:00:00 [id number] 2019-12-05 2019-12-05 Outpatient R ELVIE FAN [facility] [id number] NPI:183 10:00:00 10:00:00 [id number] 1 2019-11-23 2019-11-23 Outpatient ELVIE DOOLEY [facility] 270 [id number] NPI:183 13:00:00 13:00:00 [id number] 1 2019-11-23 2019-11-23 Outpatient R MITAELVIE [facility] 005 [id number] NPI:183 13:00:00 13:00:00 [id number] 2019-11-23 2019-11-23 [facility] [id number] NPI:183 11:20:22 11:35:22 Encounter Izzy Saldivar [facility]LIST 350.1.13.10 [id number] [facility] 4.2.7.2.686 MATERNAL [id number] & CHILD 107 [facility] 2019-11-23 2019-11-23 Office [facility] [id number] NPI:183 10:31:41 11:21:56 Visit Izzy Saldivar [facility] 350.1.13.10 [id number] [facility] 4.2.7.2.686 MATERNAL [id number] & CHILD 107 [facility] 2019-11-23 2019-11-23 Outpatient Rebeca VILLANUEVA [facility] [id number] NPI:183 10:45:00 10:45:00 IZZY [id number] 1 2019-11-23 2019-11-23 Orders Doctor RUSH 1.2.840.114 [id number] NPI:183 00:00:00 00:00:00 Only Unassigned, MELBA 350.1.13.10 [id number] [place] [facility] 4.2.7.2.686 [id number] 009 2019-08-17 2019-08-17 Telemedici Mita Elvie [facility] 1.2.840.114 [id number] NPI:183 08:10:51 16:47:26 ne Visit E SPECIALTY 350.1.13.10 [id number] [facility] 4.2.7.2.686 CENTER AT [id number] [place] 2019-08-17 2019-08-17 Outpatient ELVIE DOOLEY [facility] 270 [id number] NPI:183 13:15:00 13:15:00 [id number] 1 2019-08-17 2019-08-17 Outpatient ELVIE DOOLEY [facility] [id number] NPI:183 13:15:00 13:15:00 [id number] 1 2019-08-15 2019-08-15 Outpatient ELVIE DOOLEY [facility] 270 [id number] NPI:183 10:00:00 10:00:00 [id number] 2019-08-15 2019-08-15 Outpatient ELVIE DOOLEY [facility] [id number] NPI:183 10:00:00 10:00:00 [id number] 1 2019-07-24 2019-07-24 [facility] [id number] NPI:183 09:00:00 09:00:00 SAMIA [id number] 2019-07-24 2019-07-24 Outpatient Rebeca JONEL [facility] [id number] NPI:183 09:00:00 09:00:00 SAMIA [id number] 1 2019-07-20 2019-07-20 Telemedici [facility] 1.2.840.114 [id number] NPI:183 09:10:58 09:25:58 ne Visit Adalberto [facility] 350.1.13.10 [id number] [facility] 4.2.7.2.686 MATERNAL [id number] & CHILD [address] [place] [address] 2019-07-20 2019-07-20 Outpatient Rebeca HERBERT [facility] [id number] NPI:183 09:00:00 09:00:00 ADALBERTO [id number] 2019-07-20 2019-07-20 [facility] [id number] NPI:183 09:00:00 09:00:00 ADALBERTO [id number] 2019-07-20 2019-07-20 Bulan [facility] [id number] NPI:183 00:00:00 00:00:00 Samia DUBOIS 350.1.13.10 [id number] [facility] 4.2.7.2.686 [facility] [id number] [place]LOOD 2019-07-17 2019-07-17 Telephone Alison Torres [facility] 1.2.840.114 [id number] NPI:183 00:00:00 00:00:00 PET [facility]YLIST 350.1.13.10 [id number] [facility] 4.2.7.2.686 MATERNAL [id number] & CHILD [address] [place] [address] Results Test Description Test Time Test Comments Results Result Comments Source POCT Test 2020-06-17 11:33:00 Test Item Value Reference Range Interpretation Comme nts POCT PREG (test code = 1605) Negative On board controls acceptable with C Line (test code = 3574) Yes POCT PREG LOT # (test code = 3575) POCT PREG TEST DATE (test code = 3576) Lab Interpretation (test code = 69991-2) Normal
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
[2021-08-25] MEDS ORDERED: IBUPROFEN 400 MG TAB ONE (02:36)
[2021-08-25 04:46] VITALS: BP 131/93; TEMP 98.6; O2SAT 100
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
== END 2021-08-25 02:47 | disposition home or self-care (01) ==
LOC: ER 01:07
DX: S60.221A Contusion of right hand, initial encounter (principal); W22.8XXA Striking against or struck by other objects, initial encounter; Z72.0 Tobacco use
CPT/HCPCS: 99283

== ENCOUNTER 2022-05-16 03:06 | Emergency (ER) | payer OTHER ==
--- OUTSIDE RECORDS SUMMARY | 2022-05-16 03:22 | XMS REPORT | Continuity of Care Document ---
:2001 Author Organization [facility] t Address [address] [place] [address] [address] [place] [address] Care Team Providers Name Role Phone ELVIE FAN Attending Clinician Unavailable Elvie Fan MD Attending Clinician DANIS ZHONG Attending Clinician Unavailable Doctor Unassigned, [place] Attending Clinician Unavailable Randi Manrique RN Attending Clinician Unavailable Only, Adc Test Attending Clinician Unavailable Dhiraj June MD Attending Clinician DHIRAJ JUNE Attending Clinician Unavailable Jocelin Davis MD Attending Clinician Leyda Wang Attending Clinician Izzy Chase Attending Clinician IZZY VILLANUEVA Attending Clinician Unavailable SAMIA BAE Attending Clinician Unavailable Adalberto Mendes Attending Clinician ADALBERTO HERBERT Attending Clinician Unavailable Samia Bae MD Attending Clinician lAison Esparza Attending Clinician ELVIE FAN Admitting Clinician Unavailable Elvie Fan MD Admitting Clinician Payers Payer Name Policy Type Policy Number Effective Date Expiration Date [facility] [id number] 2016 HEALTH CHOICE 00:00:00 MEDICAID [facility] [id number] [facility] [id number] [facility] [id number] [facility] [id number] [facility] [id number] [facility] [id number] [facility] [id number] [facility] [id number] [facility] [id number] [facility] [id number] [facility] [id number] [facility] CHO[facility] - [facility] Problems Condition Condition Condition Status Onset Resolution Last Treating Co mments Source Name Details Category Date Date Treatment Clinician Date Morbid Morbid Disease Active Univers obesity obesity 3- [place] of [place] index 00 Me dical of of Branch 40.0-49.9 40.0-49.9 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 Overview : Univers a a 2-17 Added ity of 00:00: automatic [place] 00 ally from Medical request Branch for surgery [id number] 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 U nivers anterior anterior 0-30 ity of cruciate cruciate 00:00: [place] ligament ligament 00 Medica l of right of right Branch knee knee Acute Acute Disease Active 2019-04 Univers medial medial 0-30 ity of meniscus meniscus 00:00: [place] tear of tear of 00 Medical right knee right knee Br anch High risk High risk Disease Active Uni vers homosexual homosexual 8- it y of behavior behavior 00:00: [place] 00 Medical Branch Passive Passive Disease Active Univers smoke smoke 2-07 ity of exposure exposure 00:00: [place] 00 Medical Branch Acanthosis Acanthosis Disease Active U nivers nigricans nigricans 2-07 ity of 00:00: [place] 00 Medical Branch Obesity Obesity Disease Active Univers (BMI (BMI 2-22 ity of 35.0-39.9 35.0-39.9 [place] without without 00 Medical comorbidit comorbidit Br anch y) y) Allergies, Adverse Reactions, Alerts Allergy Allergy Status Severity Reaction(s) Onset Inactive Treating Comm ents Source Name Type Date Date Clinician NO KNOWN Drug Active Univers ALLERGIE Class ity of S [facility] Social History Social Habit Start Date Stop Date Quantity Comments Source History of [facility] - Tobacco Use [facility] Sex Assigned [facility] Exposure to Not sure University of SARS-CoV-2 [facility] (event) [place] Tobacco use and 2020-08-20 2020-08-20 Never used Universit y of exposure 00:00:00 00:00:00 [facility] Alcohol intake 2020-08-20 2020-08-20 Current University of 00:00:00 00:00:00 non-drinker of [facility] alcohol [place] (finding) Tobacco Comment 2016-06-09 2016-06-09 step father Universi ty of 00:00:00 00:00:00 smokes outside [facility] Smoking Status Start Date Stop Date Source Never Smoker [facility] Medications Ordered Filled Start Stop Current Ordering Indication Dosage Frequency Signature Comments Components Source Medication Medication Date Date Medication? Clinician (SIG) Name Name silver 2020-0 Yes [id number] Apply to Uni vers sulfADIAZIN 3-24 area(s) 2 ity of E 00:00: (two) [place] (SILVADENE) 00 times Medical 1 % cream daily. Branch silver 2020-0 Yes [id number] Apply to Uni vers sulfADIAZIN 3-24 area(s) 2 ity of E 00:00: (two) [place] (SILVADENE) 00 times Medical 1 % cream daily. Branch silver 2020-0 Yes [id number] Apply to Uni vers sulfADIAZIN 3-24 area(s) 2 ity of E 00:00: (two) [place] (SILVADENE) 00 times Medical 1 % cream daily. Branch silver 2020-0 Yes [id number] Apply to Uni vers sulfADIAZIN 3-24 area(s) 2 ity of E 00:00: (two) [place] (SILVADENE) 00 times Medical 1 % cream daily. Branch silver 2020-0 Yes [id number] Apply to Uni vers sulfADIAZIN 3-24 area(s) 2 ity of E 00:00: (two) [place] (SILVADENE) 00 times Medical 1 % cream daily. Branch silver 2020-0 Yes [id number] Apply to Uni vers sulfADIAZIN 3-24 area(s) 2 ity of E 00:00: (two) [place] (SILVADENE) 00 times Medical 1 % cream daily. Branch silver 1-0 Yes [id number] Apply to Uni vers sulfADIAZIN 3-24 area(s) 2 ity of E 00:00: (two) [place] (SILVADENE) 00 times Medical 1 % cream daily. Branch silver 2020-0 Yes [id number] Apply to Uni vers sulfADIAZIN 3-24 area(s) 2 ity of E 00:00: (two) [place] (SILVADENE) 00 times Medical 1 % cream daily. Branch HYDROmorpho 0 Yes .2mg 0.2 mg, Uni vers ne 3-02 Slow IV ity of (DILAUDID) 17:41: Push, [place] injection 09 Q5MIN PRN, Medi harvey 0.2 mg 10 doses, Branch Starting Tue06/17/20 at 1141, Until Discontinu ed, Routine, Pain (scale 7-10), PACU
Us e approved by (Faculty): PACU USE -ANESTHESI A SERVICE-HY DROMORPHON E INJECTIONS FENTanyl PF 2020-0 Yes 25ug 25 mcg, Uni vers (SUBLIMAZE 3-02 Slow IV ity of (PF)) 17:41: Push, [place] injection 09 Q5MIN PRN, Medi harvey 25 mcg 4 doses, Branch Starting Tue06/17/20 at 1141, Until Discontinu ed, Routine, Pain (scale 4-6), PACU ondansetron 2020-0 Yes 4mg 4 mg, Slow Univers (ZOFRAN 3-02 IV Push, ity of (PF)) 17:41: PRN, 1 [place] injection 4 09 dose, Medical mg Starting Branch Tue06/17/20 at 1141, Until Discontinu ed, Routine, Nausea and Vomiting (N/V), PACU gentian 2020-0 Yes PRN, Univers shelly 1 % 3-02 Starting ity o f solution 15:28: 3/2/21 [place] 00 at 0928, Medical Until [place] Discontinu ed, Routine, Intra-op bupivacaine Yes PRN, Univer s (preserv 06-17 Starting ity of free) 0.5% 14:44: 06/17/20 [place] (SENSORCAIN 00 at 0844, Medi harvey E MPF) 0.5 Intra-op Branc h % (5 mg/mL) 30 mL, bupivacaine liposome (PF) (EXPAREL (PF)) 1.3 % (13.3 mg/mL) 266 mg, NaCl 0.9% (NS) 50 mL gabapentin 2020- No 600mg 600 mg, Un carol (NEURONTIN) 06-17 Oral, ity of tablet 600 11:30: 11:47 ONCE, 1 [place] mg 00 :00 dose, [facility] 06/17/20 at Branch 0530, Routine, DSU Pre-op ceFAZolin No 2000mg 2 g (2,000 Univers in dextrose 06-17 mg), IV ity of (iso-os) 11:30: 12:56 [place] (ANCEF) 2 00 :00 ONCE, 1 Medical gram/100 mL dose, [facility] Piggyback 2 06/17/20 at g 0530, 100 mL, DSU Pre-op
Reason for Anti-Infec tive: Surgical Prophylaxi s
Surgi harvey Prophylaxi s: Other (see Comments)< br>Duratio n of therapy: within 24 hours of surgery lactated No 1000mL at 42 Unive rs ringers IV 06-1702 mL/hr, ity of infusion 11:30: 11:48 1,000 mL, [place] 1,000 mL 00 :00 IV Medical Infusion, Branch ONCE, 1 dose, [facility] 06/17/20 at 0530, Routine, DSU Pre-op gabapentin 2020- No 600mg Take 1 Uni vers 600 mg 06-1717 tablet by ity of tablet 00:00: 04:59 mouth 3 [place] 00 :00 (three) Medical times [place] daily for 14 days. gabapentin 2020- No 600mg Take 1 Uni vers 600 mg 06-17- tablet by ity of tablet 00:00: 04:59 mouth 3 [place] 00 :00 (three) Medical times Branch daily for 14 days. gabapentin 2020-2020- No 600mg Take 1 Uni vers 600 mg 06-17-17 tablet by ity of tablet 00:00: 04:59 mouth 3 [place] 00 :00 (three) Medical times Branch daily for 14 days. gabapentin 2020-2020- No 600mg Take 1 Uni vers 600 mg 06-17- tablet by ity of tablet 00:00: 04:59 mouth 3 [place] 00 :00 (three) Medical times Branch daily for 14 days. chlorhexidi 2020- Yes [id number] Apply to Univers ne 4 % 2-24 area(s) ity of external 00:00: once daily [place] liquid 00 as needed Medical for Wound Branch care. chlorhexidi 0 Yes [id number] Apply to Univers ne 4 % 2-24 area(s) ity of external 00:00: once daily [place] liquid 00 as needed Medical for Wound Branch care. chlorhexidi 0 Yes [id number] Apply to Univers ne 4 % 2-24 area(s) ity of external 00:00: once daily [place] liquid 00 as needed Medical for Wound Branch care. chlorhexidi 2020-0 Yes [id number] Apply to Univers ne 4 % 2-24 area(s) ity of external 00:00: once daily [place] liquid 00 as needed Medical for Wound Branch care. chlorhexidi 0 Yes [id number] Apply to Univers ne 4 % 2-24 area(s) ity of external 00:00: once daily [place] liquid 00 as needed Medical for Wound Branch care. gabapentin 2020-2020- No [id number] 600mg Take 1 Univers ER 600 mg 2-24 -11 tablet by ity of tablet, 00:00: 05:59 mouth [place] extended 00 :00 every 8 Medical release 24 (eight) Branch hr hours for 14 days. acetaminoph 2020-2020- No [id number] 1000mg Take 2 Univers en (TYLENOL 2-24 -11 tablets by i ty of EXTRA 00:00: 05:59 mouth [place] STRENGTH) 00 :00 every 8 Medical 500 mg (eight) Branch tablet hours for 14 days. celecoxib 2020- No [id number] 200mg Take 1 Univers (CELEBREX) 2-24 03-11 capsule by it y of 200 mg 00:00: 05:59 mouth 2 [place] capsule 00 :00 (two) Medical times Branch daily with meals for 14 days. gabapentin 2020-2020- No [id number] 600mg Take 1 Univers ER 600 mg 2-24 03-11 tablet by ity of tablet, 00:00: 05:59 mouth [place] extended 00 :00 every 8 Medical release 24 (eight) Branch hr hours for 14 days. acetaminoph 2020- No [id number] 1000mg Take 2 Univers en (TYLENOL 2-24 03-11 tablets by i ty of EXTRA 00:00: 05:59 mouth [place] STRENGTH) 00 :00 every 8 Medical 500 mg (eight) Branch tablet hours for 14 days. celecoxib 2020- No [id number] 200mg Take 1 Univers (CELEBREX) 2-24 03-11 capsule by it y of 200 mg 00:00: 05:59 mouth 2 [place] capsule 00 :00 (two) Medical times Branch daily with meals for 14 days. gabapentin 2020- No [id number] 600mg Take 1 Univers ER 600 mg 2-24 03-11 tablet by ity of tablet, 00:00: 05:59 mouth [place] extended 00 :00 every 8 Medical release 24 (eight) Branch hr hours for 14 days. acetaminoph 2020- No [id number] 1000mg Take 2 Univers en (TYLENOL 2-24 03-11 tablets by i ty of EXTRA 00:00: 05:59 mouth [place] STRENGTH) 00 :00 every 8 Medical 500 mg (eight) Branch tablet hours for 14 days. celecoxib 2020- No [id number] 200mg Take 1 Univers (CELEBREX) 2-24 03-11 capsule by it y of 200 mg 00:00: 05:59 mouth 2 [place] capsule 00 :00 (two) Medical times Branch daily with meals for 14 days. gabapentin 2020-2020- No [id number] 600mg Take 1 Univers ER 600 mg 2-24 03-11 tablet by ity of tablet, 00:00: 05:59 mouth [place] extended 00 :00 every 8 Medical release 24 (eight) Branch hr hours for 14 days. acetaminoph 2020- No [id number] 1000mg Take 2 Univers en (TYLENOL 2-24 03-11 tablets by i ty of EXTRA 00:00: 05:59 mouth [place] STRENGTH) 00 :00 every 8 Medical 500 mg (eight) Branch tablet hours for 14 days. celecoxib 2020- No [id number] 200mg Take 1 Univers (CELEBREX) 2-24 03-11 capsule by it y of 200 mg 00:00: 05:59 mouth 2 [place] capsule 00 :00 (two) Medical times Branch daily with meals for 14 days. gabapentin 2020- No [id number] 600mg Take 1 Univers ER 600 mg 2-24 03-11 tablet by ity of tablet, 00:00: 05:59 mouth [place] extended 00 :00 every 8 Medical release 24 (eight) Branch hr hours for 14 days. acetaminoph 2020- No [id number] 1000mg Take 2 Univers en (TYLENOL 2-24 03-11 tablets by i ty of EXTRA 00:00: 05:59 mouth [place] STRENGTH) 00 :00 every 8 Medical 500 mg (eight) Branch tablet hours for 14 days. celecoxib 2020- No [id number] 200mg Take 1 Univers (CELEBREX) 2 03-11 capsule by it y of 200 mg 00:00: 05:59 mouth 2 [place] capsule 00 :00 (two) Medical times Branch daily with meals for 14 days. gabapentin 2020- No [id number] 600mg Take 1 Univers ER 600 mg 2 03-11 tablet by ity of tablet, 00:00: 05:59 mouth [place] extended 00 :00 every 8 Medical release 24 (eight) Branch hr hours for 14 days. acetaminoph 2020- No [id number] 1000mg Take 2 Univers en (TYLENOL 2-24 03-11 tablets by i ty of EXTRA 00:00: 05:59 mouth [place] STRENGTH) 00 :00 every 8 Medical 500 mg (eight) Branch tablet hours for 14 days. celecoxib 2020- No [id number] 200mg Take 1 Univers (CELEBREX) 2-24 03-11 capsule by it y of 200 mg 00:00: 05:59 mouth 2 [place] capsule 00 :00 (two) Medical times Branch daily with meals for 14 days. acetaminoph 2020- No [id number] 1000mg Take 2 Univers en (TYLENOL 2-24 03-11 tablets by i ty of EXTRA 00:00: 05:59 mouth [place] STRENGTH) 00 :00 every 8 Medical 500 mg (eight) Branch tablet hours for 14 days. celecoxib 2020- No [id number] 200mg Take 1 Univers (CELEBREX) 2-24 03-11 capsule by it y of 200 mg 00:00: 05:59 mouth 2 [place] capsule 00 :00 (two) Medical times Branch daily with meals for 14 days. acetaminoph 2020- No [id number] 1000mg Take 2 Univers en (TYLENOL 2-24 03-11 tablets by i ty of EXTRA 00:00: 05:59 mouth [place] STRENGTH) 00 :00 every 8 Medical 500 mg (eight) Branch tablet hours for 14 days. celecoxib 2020- No [id number] 200mg Take 1 Univers (CELEBREX) 2-24 03-11 capsule by it y of 200 mg 00:00: 05:59 mouth 2 [place] capsule 00 :00 (two) Medical times Branch daily with meals for 14 days. acetaminoph 2020- No [id number] 1000mg Take 2 Univers en (TYLENOL 2-24 03-11 tablets by i ty of EXTRA 00:00: 05:59 mouth [place] STRENGTH) 00 :00 every 8 Medical 500 mg (eight) Branch tablet hours for 14 days. celecoxib 2020- No [id number] 200mg Take 1 Univers (CELEBREX) 2-24 03-11 capsule by it y of 200 mg 00:00: 05:59 mouth 2 [place] capsule 00 :00 (two) Medical times Branch daily with meals for 14 days. acetaminoph 2020- No [id number] 1000mg Take 2 Univers en (TYLENOL 2-24 03-11 tablets by i ty of EXTRA 00:00: 05:59 mouth [place] STRENGTH) 00 :00 every 8 Medical 500 mg (eight) Branch tablet hours for 14 days. celecoxib 2020- No [id number] 200mg Take 1 Univers (CELEBREX) 2-24 03-11 capsule by it y of 200 mg 00:00: 05:59 mouth 2 [place] capsule 00 :00 (two) Medical times Branch daily with meals for 14 days. chlorhexidi 2020- No [id number] Apply to Univers ne 4 % 06-11 area(s) ity of external 00:00: 00:00 once daily [place] liquid 00 :00 as needed Medical for Wound Branch care. gabapentin 2020- No [id number] 600mg Take 1 Univers ER 600 mg 06-11 tablet by ity of tablet, 00:00: 00:00 mouth [place] extended 00 :00 every 8 Medical release 24 (eight) Branch hr hours for 14 days. scopolamine 2020- No [id number] 1.5mg Apply 1 Univers transdermal 06-11- Patch to ity of 1 mg over 3 00:00: 05:59 area(s) [place] days patch 00 :00 every 72 Medic al (seventy-t Branch wo) hours for 3 days. scopolamine 2020- No [id number] 1.5mg Apply 1 Univers transdermal -11 06- Patch to ity of 1 mg over 3 00:00: 05:59 area(s) [place] days patch 00 :00 every 72 Medic al (seventy-t Branch wo) hours for 3 days. scopolamine 2020- No [id number] 1.5mg Apply 1 Univers transdermal 06-11- Patch to ity of 1 mg over 3 00:00: 05:59 area(s) [place] days patch 00 :00 every 72 Medic al (seventy-t Branch wo) hours for 3 days. ibuprofen 2019-04 Yes 600mg Take 600 Uni vers 600 mg 1-03 mg by ity of tablet 00:00: mouth [place] 00 every 6 Medical (six) Branch hours as needed for Pain (scale 4-6). ibuprofen 2019-04 Yes 600mg Take 600 Uni vers 600 mg 1-03 mg by ity of tablet 00:00: mouth [place] 00 every 6 Medical (six) Branch hours as needed for Pain (scale 4-6). ibuprofen 2019-04 Yes 600mg Take 600 Uni vers 600 mg 1-03 mg by ity of tablet 00:00: mouth [place] 00 every 6 Medical (six) Branch hours as needed for Pain (scale 4-6). ibuprofen 2019-04 Yes 600mg Take 600 Uni vers 600 mg 1-03 mg by ity of tablet 00:00: mouth [place] 00 every 6 Medical (six) Branch hours as needed for Pain (scale 4-6). ibuprofen 2019-04 Yes 600mg Take 600 Uni vers 600 mg 1-03 mg by ity of tablet 00:00: mouth [place] 00 every 6 Medical (six) Branch hours as needed for Pain (scale 4-6). ibuprofen 2019-04- No 600mg Take 600 Un carol 600 mg 1-03 01-27 mg by ity of tablet 00:00: 00:00 mouth [place] 00 :00 every 6 Medical (six) Branch hours as needed for Pain (scale 4-6). ibuprofen 2019-04 No 600mg Take 600 Un carol 600 mg 1-03 01-27 mg by ity of tablet 00:00: 00:00 mouth [place] 00 :00 every 6 Medical (six) Branch hours as needed for Pain (scale 4-6). ibuprofen 2019-04 No 600mg Take 600 Un carol 600 mg 1-03 01-27 mg by ity of tablet 00:00: 00:00 mouth [place] 00 :00 every 6 Medical (six) Branch hours as needed for Pain (scale 4-6). ibuprofen 2019-04 No 600mg Take 600 Un carol 600 mg 1-03 01-27 mg by ity of tablet 00:00: 00:00 mouth [place] 00 :00 every 6 Medical (six) Branch hours as needed for Pain (scale 4-6). Mobic 7.5 Mobic 7.5 2019-04 2020- No 1{table QD Mobic 7.5 MG MG 0-27 11-25 t} MG 00:00: 00:00 00 :00 Mobic 7.5 Mobic 7.5 2019-04 2020- No 1{table QD Mobic 7.5 MG MG 0-27 11-25 t} MG 00:00: 00:00 00 :00 Mobic 7.5 Mobic 7.5 2019-04 2020- No 1{table QD Mobic 7.5 MG MG 0-27 11-25 t} MG 00:00: 00:00 00 :00 acetaminoph 2019-04- No 1000mg 1,000 mg, Univers en 0-04 10-04 Oral, ity of (TYLENOL) 21:00: 20:01 ONCE, 1 [place] tablet 00 :00 dose, [facility],000 mg 01/20/20 at [facility] h 1600, [place] traMADoL 50 2019-04 Yes [id number] 50mg Take 1 Univ ers mg tablet 0-04 tablet by ity o f 00:00: mouth [place] 00 every 8 Medical (eight) Branch hours as needed for Pain (scale 7-10) for up to 15 doses. Indication s: acute pain traMADoL 50 2019-04 Yes [id number] 50mg Take 1 Univ ers mg tablet 0-04 tablet by ity o f 00:00: mouth [place] 00 every 8 Medical (eight) Branch hours as needed for Pain (scale 7-10) for up to 15 doses. Indication s: acute pain traMADoL 50 2019-04 Yes [id number] 50mg Take 1 Univ ers mg tablet 0-04 tablet by ity o f 00:00: mouth [place] 00 every 8 Medical (eight) Branch hours as needed for Pain (scale 7-10) for up to 15 doses. Indication s: acute pain traMADoL 50 2019-04 Yes [id number] 50mg Take 1 Univ ers mg tablet 0-04 tablet by ity o f 00:00: mouth [place] 00 every 8 Medical (eight) Branch hours as needed for Pain (scale 7-10) for up to 15 doses. Indication s: acute pain traMADoL 50 2019-04 Yes [id number] 50mg Take 1 Univ ers mg tablet 0-04 tablet by ity o f 00:00: mouth [place] 00 every 8 Medical (eight) Branch hours as needed for Pain (scale 7-10) for up to 15 doses. Indication s: acute pain traMADoL 50 2019-04 Yes [id number] 50mg Take 1 Univ ers mg tablet 0-04 tablet by ity o f 00:00: mouth [place] 00 every 8 Medical (eight) Branch hours as needed for Pain (scale 7-10) for up to 15 doses. Indication s: acute pain traMADoL 50 2019-04 Yes [id number] 50mg Take 1 Univ ers mg tablet 0-04 tablet by ity o f 00:00: mouth [place] 00 every 8 Medical (eight) Branch hours as needed for Pain (scale 7-10) for up to 15 doses. Indication s: acute pain traMADoL 50 2019-04 Yes [id number] 50mg Take 1 Univ ers mg tablet 0-04 tablet by ity o f 00:00: mouth [place] 00 every 8 Medical (eight) Branch hours as needed for Pain (scale 7-10) for up to 15 doses. Indication s: acute pain traMADoL 50 2019-04 Yes [id number] 50mg Take 1 Univ ers mg tablet 0-04 tablet by ity o f 00:00: mouth [place] 00 every 8 Medical (eight) Branch hours as needed for Pain (scale 7-10) for up to 15 doses. Indication s: acute pain traMADoL 50 2019-04 Yes [id number] 50mg Take 1 Univ ers mg tablet 0-04 tablet by ity o f 00:00: mouth [place] 00 every 8 Medical (eight) Branch hours as needed for Pain (scale 7-10) for up to 15 doses. Indication s: acute pain traMADoL 50 2019-04- No [id number] 50mg Take 1 Uni vers mg tablet 0-04 -27 tablet by ity of 00:00: 00:00 mouth [place] 00 :00 every 8 Medical (eight) Branch hours as needed for Pain (scale 7-10) for up to 15 doses. Indication s: acute pain traMADoL 50 2019-04 No [id number] 50mg Take 1 Uni vers mg tablet 0-04 -27 tablet by ity of 00:00: 00:00 mouth [place] 00 :00 every 8 Medical (eight) Branch hours as needed for Pain (scale 7-10) for up to 15 doses. Indication s: acute pain traMADoL 50 2019-04 No [id number] 50mg Take 1 Uni vers mg tablet 0-04 -27 tablet by ity of 00:00: 00:00 mouth [place] 00 :00 every 8 Medical (eight) Branch hours as needed for Pain (scale 7-10) for up to 15 doses. Indication s: acute pain traMADoL 50 2019-04- No [id number] 50mg Take 1 Uni vers mg tablet 0-04 -27 tablet by ity of 00:00: 00:00 mouth [place] 00 :00 every 8 Medical (eight) Branch hours as needed for Pain (scale 7-10) for up to 15 doses. Indication s: acute pain ibuprofen 2019-04 No [id number] 800mg Take 1 Univers 800 mg 0-04 10-04 tablet by ity of tablet 00:00: 00:00 mouth [place] 00 :00 every 8 Medical (eight) Branch hours as needed for Pain (scale 4-6) for up to 30 doses. ibuprofen 2020-0 Yes [id number] 800mg Take 1 U nivers 800 mg 4-03 tablet by ity of tablet 00:00: mouth [place] 00 every 8 Medical (eight) Branch hours. ibuprofen 2020-0 Yes [id number] 800mg Take 1 U nivers 800 mg 4-03 tablet by ity of tablet 00:00: mouth [place] 00 every 8 Medical (eight) Branch hours. ibuprofen 2020-0 Yes [id number] 800mg Take 1 U nivers 800 mg 4-03 tablet by ity of tablet 00:00: mouth [place] 00 every 8 Medical (eight) Branch hours. ibuprofen 2020-0 Yes [id number] 800mg Take 1 U nivers 800 mg 4-03 tablet by ity of tablet 00:00: mouth [place] 00 every 8 Medical (eight) Branch hours. ibuprofen 2020-0 Yes [id number] 800mg Take 1 U nivers 800 mg 4-03 tablet by ity of tablet 00:00: mouth [place] 00 every 8 Medical (eight) Branch hours. ibuprofen 2020-0 Yes [id number] 800mg Take 1 U nivers 800 mg 4-03 tablet by ity of tablet 00:00: mouth [place] 00 every 8 Medical (eight) Branch hours. ibuprofen 2020-0 Yes [id number] 800mg Take 1 U nivers 800 mg 4-03 tablet by ity of tablet 00:00: mouth [place] 00 every 8 Medical (eight) Branch hours. ibuprofen 2020-0 Yes [id number] 800mg Take 1 U nivers 800 mg 4-03 tablet by ity of tablet 00:00: mouth [place] 00 every 8 Medical (eight) Branch hours. ibuprofen 2020-0 Yes [id number] 800mg Take 1 U nivers 800 mg 4-03 tablet by ity of tablet 00:00: mouth [place] 00 every 8 Medical (eight) Branch hours. ibuprofen 2020-0 2020- No [id number] 800mg Take 1 Univers 800 mg 4-03 09-16 tablet by ity of tablet 00:00: 00:00 mouth [place] 00 :00 every 8 Medical (eight) Branch hours. ibuprofen 2020-0 2020- No [id number] 800mg Take 1 Univers 800 mg 4-03 09-16 tablet by ity of tablet 00:00: 00:00 mouth [place] 00 :00 every 8 Medical (eight) Branch hours. ibuprofen 2020- No [id number] 800mg Take 1 Univers 800 mg 4-03 09-16 tablet by ity of tablet 00:00: 00:00 mouth [place] 00 :00 every 8 Medical (eight) Branch hours. ibuprofen 2020- No [id number] 800mg Take 1 Univers 800 mg 4-03 09-16 tablet by ity of tablet 00:00: 00:00 mouth [place] 00 :00 every 8 Medical (eight) Branch hours. traMADOL 50 Yes [id number] 50mg Take 1 Univers mg tablet 6-03 tablet by ity o f 00:00: mouth [place] 00 every 6 Medical (six) Branch hours as needed for Pain (scale 4-6). ibuprofen Yes [id number] 800mg Take 1 U nivers 800 mg 6-03 tablet by ity of tablet 00:00: mouth [place] 00 every 8 Medical (eight) Branch hours. traMADOL 50 2020- No [id number] 50mg Take 1 Univers mg tablet 6-03 04-03 tablet by ity of 00:00: 00:00 mouth [place] 00 :00 every 6 Medical (six) Branch hours as needed for Pain (scale 4-6). ibuprofen 2020- No [id number] 800mg Take 1 Univers 800 mg 6-03 04-03 tablet by ity of tablet 00:00: 00:00 mouth [place] 00 :00 every 8 Medical (eight) Branch hours. traMADOL 50 2020- No [id number] 50mg Take 1 Univers mg tablet 6-03 04-03 tablet by ity of 00:00: 00:00 mouth [place] 00 :00 every 6 Medical (six) Branch hours as needed for Pain (scale 4-6). ibuprofen 2020- No [id number] 800mg Take 1 Univers 800 mg 6-03 04-03 tablet by ity of tablet 00:00: 00:00 mouth [place] 00 :00 every 8 Medical (eight) Branch hours. Dextrometho Yes [id number] 10mL Take 10 mL Univers rphan-Guaif 2-12 by mouth 2 it y of enesin 00:00: (two) [place] (DELSYM 00 times Medical COUGH-CHEST daily. Branch CONGEST DM) 5-100 mg/5 mL Liqd Dextrometho 2019- No [id number] 10mL Take 10 mL Univers rpbekah-Onelf 05-30 by mouth 2 i ty of enesin 00:00: 00:00 (two) [place] (DELSYM 00 :00 times Medical COUGH-CHEST daily. Branch CONGEST DM) 5-100 mg/5 mL Liqd Dextrometho 2020- No [id number] 10mL Take 10 mL Univers rpbekah-Onelf 05-30 by mouth 2 i ty of enesin 00:00: 00:00 (two) [place] (DELSYM 00 :00 times Medical COUGH-CHEST daily. Branch CONGEST DM) 5-100 mg/5 mL Liqd Ibuprofen Ibuprofen No Ibuprofen Common [facility] No known No Univers medications [facility] No known No Univers medications [facility] No known No Univers medications [facility] No known No Univers medications [facility] Hydrocodone Hydrocodone No Hydrocodon Common -Acetaminop -[facility]op [facility]amin [facility]am[facility] No Tramadol Com mon HCl HCl HCl [facility] Tramadol Tramadol No Tramadol HCl HCl HCl Tramadol Tramadol No Tramadol HCl HCl HCl Tramadol Tramadol No Tramadol HCl HCl HCl Tramadol Tramadol No Tramadol HCl HCl HCl Tramadol Tramadol No Tramadol HCl HCl HCl Ibuprofen Ibuprofen No Ibuprofen Ibuprofen Ibuprofen No Ibuprofen Hydrocodone Hydrocodone No Hydrocodon -Acetaminop -Acetaminop e-Acetamin hen hen ophen Tramadol Tramadol No Tramadol HCl HCl HCl Ibuprofen Ibuprofen No Ibuprofen Hydrocodone Hydrocodone No Hydrocodon -Acetaminop -Acetaminop e-Acetamin hen hen ophen Tramadol Tramadol No Tramadol HCl HCl HCl Ibuprofen Ibuprofen No Ibuprofen Hydrocodone Hydrocodone No Hydrocodon -Acetaminop -Acetaminop e-Acetamin hen hen ophen Tramadol Tramadol No Tramadol HCl HCl HCl Tramadol Tramadol No Tramadol HCl HCl HCl Hydrocodone Hydrocodone No Hydrocodon -Acetaminop -Acetaminop e-Acetamin hen hen ophen Ibuprofen Ibuprofen No Ibuprofen Tramadol Tramadol No Tramadol HCl HCl HCl Immunizations Ordered Immunization Filled Immunization Date Status Commen ts Source Name Name Meningococcal B, OMV 2019-11-23 Completed Univ ersity of 00:00:00 [place] [facility] Meningococcal B, OMV 2019-11-23 Completed Univ ersity of 00:00:00 [place] [facility] Meningococcal B, OMV 2019-11-23 Completed Univ ersity of 00:00:00 [place] [facility] Meningococcal B, OMV 2019-11-23 Completed Univ ersity of 00:00:00 [place] [facility] Meningococcal B, OMV 2019-11-23 Completed Univ ersity of 00:00:00 [place] [facility] Meningococcal B, OMV 2019-11-23 Completed Univ ersity of 00:00:00 [place] [facility] Meningococcal B, OMV 2019-11-23 Completed Univ ersity of 00:00:00 [place] [facility] Meningococcal B, OMV 2019-11-23 Completed Univ ersity of 00:00:00 [place] [facility] Meningococcal B, OMV 2019-11-23 Completed Univ ersity of 00:00:00 [place] [facility] Meningococcal B, OMV 2019-11-23 Completed Univ ersity of 00:00:00 [place] [facility] Meningococcal B, OMV 2019-11-23 Completed Univ ersity of 00:00:00 [place] [facility] Meningococcal B, OMV 2019-11-23 Completed Univ ersity of 00:00:00 [place] [facility] Meningococcal B, OMV 2019-11-23 Completed Univ ersity of 00:00:00 [place] [facility] Meningococcal B, OMV 2019-11-23 Completed Univ ersity of 00:00:00 [place] [facility] Meningococcal B, OMV 2019-11-23 Completed Univ ersity of 00:00:00 [place] [facility] Meningococcal B, OMV 2019-11-23 Completed Univ ersity of 00:00:00 [place] [facility] Meningococcal B, OMV 2019-11-23 Completed Univ ersity of 00:00:00 [place] [facility] Meningococcal B, OMV 2019-11-23 Completed Univ ersity of 00:00:00 [place] [facility] Meningococcal B, OMV 2019-11-23 Completed Univ ersity of 00:00:00 [place] [facility] Meningococcal B, OMV 2019-11-23 Completed Univ ersity of 00:00:00 [place] [facility] Meningococcal B, OMV 2019-11-23 Completed Univ ersity of 00:00:00 [place] [facility] Meningococcal B, OMV 2019-11-23 Completed Univ ersity of 00:00:00 [place] [facility] Meningococcal B, OMV 2019-11-23 Completed Univ ersity of 00:00:00 [place] [facility] Meningococcal B, OMV 2019-11-23 Completed Univ ersity of 00:00:00 [place] [facility] Meningococcal B, OMV 2019-11-23 Completed Univ ersity of 00:00:00 [place] [facility] Meningococcal B, OMV 2019-11-23 Completed Univ ersity of 00:00:00 [place] [facility] Meningococcal B, OMV 2019-11-23 Completed Univ ersity of 00:00:00 [place] [facility] Meningococcal B, OMV 2019-11-23 Completed Univ ersity of 00:00:00 [place] [facility] Meningococcal B, OMV 2019-11-23 Completed Univ ersity of 00:00:00 [place] [facility] Meningococcal B, OMV 2019-11-23 Completed Univ ersity of 00:00:00 [place] [facility] Meningococcal B, OMV 2019-11-23 Completed Univ ersity of 00:00:00 [place] [facility] Meningococcal B, OMV 2019-11-23 Completed Univ ersity of 00:00:00 [place] [facility] Meningococcal B, OMV 2019-11-23 Completed Univ ersity of 00:00:00 [place] [facility] Meningococcal B, OMV 2019-11-23 Completed Univ ersity of 00:00:00 [place] [facility] Meningococcal B, OMV 2019-11-23 Completed Univ ersity of 00:00:00 [place] [facility] Meningococcal B, OMV 2019-11-23 Completed Univ ersity of 00:00:00 [place] [facility] Meningococcal B, OMV 2019-11-23 Completed Univ ersity of 00:00:00 [place] [facility] Meningococcal B, OMV 2019-11-23 Completed Univ ersity of 00:00:00 [place] [facility] Meningococcal B, OMV 2019-11-23 Completed Univ ersity of 00:00:00 [place] [facility] Meningococcal B, OMV 2019-11-23 Completed Univ ersity of 00:00:00 [place] [facility] Meningococcal B, OMV 2019-11-23 Completed Univ ersity of 00:00:00 [place] [facility] Meningococcal B, OMV 2019-11-23 Completed Univ ersity of 00:00:00 [place] [facility] Meningococcal 2017-05-25 Completed University of Polysaccharide 00:00:00 [place] [facility] (groups A, C, Y and Branc h W-135) conjugate vaccine (MCV4P) Influenza Virus 2017-05-25 Completed Universit y of Vaccine Quad IM 3+ 00:00:00 [facility] Meningococcal B, OMV 2017-05-25 Completed Univ ersity of 00:00:00 [facility] Meningococcal 2017-05-25 Completed University of Polysaccharide 00:00:00 [place] [facility] (groups A, C, Y and Branc h W-135) conjugate vaccine (MCV4P) Influenza Virus 2017-05-25 Completed Universit y of Vaccine Quad IM 3+ 00:00:00 [facility] Meningococcal B, OMV 2017-05-25 Completed Univ ersity of 00:00:00 [facility] Meningococcal 2017-05-25 Completed University of Polysaccharide 00:00:00 [place] [facility] (groups A, C, Y and Branc h W-135) conjugate vaccine (MCV4P) Influenza Virus 2017-05-25 Completed Universit y of Vaccine Quad IM 3+ 00:00:00 [facility] Meningococcal B, OMV 2017-05-25 Completed Univ ersity of 00:00:00 [facility] Meningococcal 2017-05-25 Completed University of Polysaccharide 00:00:00 [place] [facility] (groups A, C, Y and Branc h W-135) conjugate vaccine (MCV4P) Meningococcal 2017-05-25 Completed University of Polysaccharide 00:00:00 [place] [facility] (groups A, C, Y and Branc h W-135) conjugate vaccine (MCV4P) Influenza Virus 2017-05-25 Completed Universit y of Vaccine Quad IM 3+ 00:00:00 [facility] Meningococcal B, OMV 2017-05-25 Completed Univ ersity of 00:00:00 [facility] Influenza Virus 2017-05-25 Completed Universit y of Vaccine Quad IM 3+ 00:00:00 [facility] Meningococcal B, OMV 2017-05-25 Completed Univ ersity of 00:00:00 [facility] Meningococcal 2017-05-25 Completed University of Polysaccharide 00:00:00 [place] [facility] (groups A, C, Y and Branc h W-135) conjugate vaccine (MCV4P) Influenza Virus 2017-05-25 Completed Universit y of Vaccine Quad IM 3+ 00:00:00 [facility] Meningococcal B, OMV 2017-05-25 Completed Univ ersity of 00:00:00 [facility] Meningococcal 2017-05-25 Completed University of Polysaccharide 00:00:00 [place] [facility] (groups A, C, Y and Branc h W-135) conjugate vaccine (MCV4P) Influenza Virus 2017-05-25 Completed Universit y of Vaccine Quad IM 3+ 00:00:00 [facility] Meningococcal B, OMV 2017-05-25 Completed Univ ersity of 00:00:00 [facility] Meningococcal 2017-05-25 Completed University of Polysaccharide 00:00:00 [place] [facility] (groups A, C, Y and Branc h W-135) conjugate vaccine (MCV4P) Influenza Virus 2017-05-25 Completed Universit y of Vaccine Quad IM 3+ 00:00:00 [facility] Meningococcal B, OMV 2017-05-25 Completed Univ ersity of 00:00:00 [facility] Meningococcal 2017-05-25 Completed University of Polysaccharide 00:00:00 [place] [facility] (groups A, C, Y and Branc h W-135) conjugate vaccine (MCV4P) Influenza Virus 2017-05-25 Completed Universit y of Vaccine Quad IM 3+ 00:00:00 [facility] Meningococcal B, OMV 2017-05-25 Completed Univ ersity of 00:00:00 [facility] Meningococcal 2017-05-25 Completed University of Polysaccharide 00:00:00 [place] [facility] (groups A, C, Y and Branc h W-135) conjugate vaccine (MCV4P) Influenza Virus 2017-05-25 Completed Universit y of Vaccine Quad IM 3+ 00:00:00 [facility] Meningococcal B, OMV 2017-05-25 Completed Univ ersity of 00:00:00 [facility] Meningococcal 2017-05-25 Completed University of Polysaccharide 00:00:00 [place] [facility] (groups A, C, Y and Branc h W-135) conjugate vaccine (MCV4P) Influenza Virus 2017-05-25 Completed Universit y of Vaccine Quad IM 3+ 00:00:00 [facility] Meningococcal B, OMV 2017-05-25 Completed Univ ersity of 00:00:00 [facility] Meningococcal 2017-05-25 Completed University of Polysaccharide 00:00:00 [place] [facility] (groups A, C, Y and Branc h W-135) conjugate vaccine (MCV4P) Influenza Virus 2017-05-25 Completed Universit y of Vaccine Quad IM 3+ 00:00:00 [facility] Meningococcal B, OMV 2017-05-25 Completed Univ ersity of 00:00:00 [facility] Meningococcal 2017-05-25 Completed University of Polysaccharide 00:00:00 [place] [facility] (groups A, C, Y and Branc h W-135) conjugate vaccine (MCV4P) Influenza Virus 2017-05-25 Completed Universit y of Vaccine Quad IM 3+ 00:00:00 [facility] Meningococcal B, OMV 2017-05-25 Completed Univ ersity of 00:00:00 [facility] Meningococcal 2017-05-25 Completed University of Polysaccharide 00:00:00 [place] [facility] (groups A, C, Y and Branc h W-135) conjugate vaccine (MCV4P) Influenza Virus 2017-05-25 Completed Universit y of Vaccine Quad IM 3+ 00:00:00 [facility] Meningococcal B, OMV 2017-05-25 Completed Univ ersity of 00:00:00 [facility] Meningococcal 2017-05-25 Completed University of Polysaccharide 00:00:00 [place] [facility] (groups A, C, Y and Branc h W-135) conjugate vaccine (MCV4P) Influenza Virus 2017-05-25 Completed Universit y of Vaccine Quad IM 3+ 00:00:00 [facility] Meningococcal B, OMV 2017-05-25 Completed Univ ersity of 00:00:00 [facility] Meningococcal 2017-05-25 Completed University of Polysaccharide 00:00:00 [place] [facility] (groups A, C, Y and Branc h W-135) conjugate vaccine (MCV4P) Influenza Virus 2017-05-25 Completed Universit y of Vaccine Quad IM 3+ 00:00:00 [facility] Meningococcal B, OMV 2017-05-25 Completed Univ ersity of 00:00:00 [facility] Meningococcal 2017-05-25 Completed University of Polysaccharide 00:00:00 [place] [facility] (groups A, C, Y and Branc h W-135) conjugate vaccine (MCV4P) Influenza Virus 2017-05-25 Completed Universit y of Vaccine Quad IM 3+ 00:00:00 [facility] Meningococcal B, OMV 2017-05-25 Completed Univ ersity of 00:00:00 [facility] Meningococcal 2017-05-25 Completed University of Polysaccharide 00:00:00 [place] [facility] (groups A, C, Y and Branc h W-135) conjugate vaccine (MCV4P) Influenza Virus 2017-05-25 Completed Universit y of Vaccine Quad IM 3+ 00:00:00 [facility] Meningococcal B, OMV 2017-05-25 Completed Univ ersity of 00:00:00 [facility] Meningococcal 2017-05-25 Completed University of Polysaccharide 00:00:00 [place] [facility] (groups A, C, Y and Branc h W-135) conjugate vaccine (MCV4P) Influenza Virus 2017-05-25 Completed Universit y of Vaccine Quad IM 3+ 00:00:00 [facility] Meningococcal B, OMV 2017-05-25 Completed Univ ersity of 00:00:00 [facility] Meningococcal 2017-05-25 Completed University of Polysaccharide 00:00:00 [place] [facility] (groups A, C, Y and Branc h W-135) conjugate vaccine (MCV4P) Influenza Virus 2017-05-25 Completed Universit y of Vaccine Quad IM 3+ 00:00:00 [facility] Meningococcal B, OMV 2017-05-25 Completed Univ ersity of 00:00:00 [facility] Meningococcal 2017-05-25 Completed University of Polysaccharide 00:00:00 [place] [facility] (groups A, C, Y and Branc h W-135) conjugate vaccine (MCV4P) Influenza Virus 2017-05-25 Completed Universit y of Vaccine Quad IM 3+ 00:00:00 [facility] Meningococcal B, OMV 2017-05-25 Completed Univ ersity of 00:00:00 [facility] Meningococcal 2017-05-25 Completed University of Polysaccharide 00:00:00 [place] [facility] (groups A, C, Y and Branc h W-135) conjugate vaccine (MCV4P) Influenza Virus 2017-05-25 Completed Universit y of Vaccine Quad IM 3+ 00:00:00 [facility] Meningococcal B, OMV 2017-05-25 Completed Univ ersity of 00:00:00 [facility] Meningococcal 2017-05-25 Completed University of Polysaccharide 00:00:00 [place] [facility] (groups A, C, Y and Branc h W-135) conjugate vaccine (MCV4P) Influenza Virus 2017-05-25 Completed Universit y of Vaccine Quad IM 3+ 00:00:00 [facility] Meningococcal B, OMV 2017-05-25 Completed Univ ersity of 00:00:00 [facility] Meningococcal 2017-05-25 Completed University of Polysaccharide 00:00:00 [place] [facility] (groups A, C, Y and Branc h W-135) conjugate vaccine (MCV4P) Influenza Virus 2017-05-25 Completed Universit y of Vaccine Quad IM 3+ 00:00:00 [facility] Meningococcal B, OMV 2017-05-25 Completed Univ ersity of 00:00:00 [facility] Meningococcal 2017-05-25 Completed University of Polysaccharide 00:00:00 [place] [facility] (groups A, C, Y and Branc h W-135) conjugate vaccine (MCV4P) Influenza Virus 2017-05-25 Completed Universit y of Vaccine Quad IM 3+ 00:00:00 [facility] Meningococcal B, OMV 2017-05-25 Completed Univ ersity of 00:00:00 [facility] Meningococcal 2017-05-25 Completed University of Polysaccharide 00:00:00 [place] [facility] (groups A, C, Y and Branc h W-135) conjugate vaccine (MCV4P) Influenza Virus 2017-05-25 Completed Universit y of Vaccine Quad IM 3+ 00:00:00 [facility] Meningococcal B, OMV 2017-05-25 Completed Univ ersity of 00:00:00 [facility] Meningococcal 2017-05-25 Completed University of Polysaccharide 00:00:00 [place] [facility] (groups A, C, Y and Branc h W-135) conjugate vaccine (MCV4P) Influenza Virus 2017-05-25 Completed Universit y of Vaccine Quad IM 3+ 00:00:00 [facility] Meningococcal B, OMV 2017-05-25 Completed Univ ersity of 00:00:00 [facility] Meningococcal 2017-05-25 Completed University of Polysaccharide 00:00:00 [place] [facility] (groups A, C, Y and Branc h W-135) conjugate vaccine (MCV4P) Influenza Virus 2017-05-25 Completed Universit y of Vaccine Quad IM 3+ 00:00:00 [facility] Meningococcal B, OMV 2017-05-25 Completed Univ ersity of 00:00:00 [facility] Meningococcal 2017-05-25 Completed University of Polysaccharide 00:00:00 [place] [facility] (groups A, C, Y and Branc h W-135) conjugate vaccine (MCV4P) Influenza Virus 2017-05-25 Completed Universit y of Vaccine Quad IM 3+ 00:00:00 [facility] Meningococcal B, OMV 2017-05-25 Completed Univ ersity of 00:00:00 [facility] Meningococcal 2017-05-25 Completed University of Polysaccharide 00:00:00 [place] [facility] (groups A, C, Y and Branc h W-135) conjugate vaccine (MCV4P) Influenza Virus 2017-05-25 Completed Universit y of Vaccine Quad IM 3+ 00:00:00 [facility] Meningococcal B, OMV 2017-05-25 Completed Univ ersity of 00:00:00 [facility] Meningococcal 2017-05-25 Completed University of Polysaccharide 00:00:00 [place] [facility] (groups A, C, Y and Branc h W-135) conjugate vaccine (MCV4P) Influenza Virus 2017-05-25 Completed Universit y of Vaccine Quad IM 3+ 00:00:00 [facility] Meningococcal B, OMV 2017-05-25 Completed Univ ersity of 00:00:00 [facility] Meningococcal 2017-05-25 Completed University of Polysaccharide 00:00:00 [place] [facility] (groups A, C, Y and Branc h W-135) conjugate vaccine (MCV4P) Influenza Virus 2017-05-25 Completed Universit y of Vaccine Quad IM 3+ 00:00:00 [facility] Meningococcal B, OMV 2017-05-25 Completed Univ ersity of 00:00:00 [facility] Meningococcal 2017-05-25 Completed University of Polysaccharide 00:00:00 [place] [facility] (groups A, C, Y and Branc h W-135) conjugate vaccine (MCV4P) Influenza Virus 2017-05-25 Completed Universit y of Vaccine Quad IM 3+ 00:00:00 [facility] Meningococcal B, OMV 2017-05-25 Completed Univ ersity of 00:00:00 [facility] Meningococcal 2017-05-25 Completed University of Polysaccharide 00:00:00 [place] [facility] (groups A, C, Y and Branc h W-135) conjugate vaccine (MCV4P) Influenza Virus 2017-05-25 Completed Universit y of Vaccine Quad IM 3+ 00:00:00 [facility] Meningococcal B, OMV 2017-05-25 Completed Univ ersity of 00:00:00 [facility] Meningococcal 2017-05-25 Completed University of Polysaccharide 00:00:00 [place] [facility] (groups A, C, Y and Branc h W-135) conjugate vaccine (MCV4P) Influenza Virus 2017-05-25 Completed Universit y of Vaccine Quad IM 3+ 00:00:00 [facility] Meningococcal B, OMV 2017-05-25 Completed Univ ersity of 00:00:00 [facility] Meningococcal 2017-05-25 Completed University of Polysaccharide 00:00:00 [place] [facility] (groups A, C, Y and Branc h W-135) conjugate vaccine (MCV4P) Influenza Virus 2017-05-25 Completed Universit y of Vaccine Quad IM 3+ 00:00:00 [facility] Meningococcal B, OMV 2017-05-25 Completed Univ ersity of 00:00:00 [facility] Meningococcal 2017-05-25 Completed University of Polysaccharide 00:00:00 [place] [facility] (groups A, C, Y and Branc h W-135) conjugate vaccine (MCV4P) Influenza Virus 2017-05-25 Completed Universit y of Vaccine Quad IM 3+ 00:00:00 [facility] Meningococcal B, OMV 2017-05-25 Completed Univ ersity of 00:00:00 [facility] Meningococcal 2017-05-25 Completed University of Polysaccharide 00:00:00 [place] [facility] (groups A, C, Y and Branc h W-135) conjugate vaccine (MCV4P) Influenza Virus 2017-05-25 Completed Universit y of Vaccine Quad IM 3+ 00:00:00 [facility] Meningococcal B, OMV 2017-05-25 Completed Univ ersity of 00:00:00 [facility] Meningococcal 2017-05-25 Completed University of Polysaccharide 00:00:00 [place] [facility] (groups A, C, Y and Branc h W-135) conjugate vaccine (MCV4P) Influenza Virus 2017-05-25 Completed Universit y of Vaccine Quad IM 3+ 00:00:00 [facility] Meningococcal B, OMV 2017-05-25 Completed Univ ersity of 00:00:00 [facility] Meningococcal 2017-05-25 Completed University of Polysaccharide 00:00:00 [place] [facility] (groups A, C, Y and Branc h W-135) conjugate vaccine (MCV4P) Influenza Virus 2017-05-25 Completed Universit y of Vaccine Quad IM 3+ 00:00:00 [facility] Meningococcal B, OMV 2017-05-25 Completed Univ ersity of 00:00:00 [facility] Meningococcal 2017-05-25 Completed University of Polysaccharide 00:00:00 [place] [facility] (groups A, C, Y and Branc h W-135) conjugate vaccine (MCV4P) Influenza Virus 2017-05-25 Completed Universit y of Vaccine Quad IM 3+ 00:00:00 [facility] Meningococcal B, OMV 2017-05-25 Completed Univ ersity of 00:00:00 [facility] Meningococcal 2017-05-25 Completed University of Polysaccharide 00:00:00 [place] [facility] (groups A, C, Y and Branc h W-135) conjugate vaccine (MCV4P) Influenza Virus 2017-05-25 Completed Universit y of Vaccine Quad IM 3+ 00:00:00 [facility] Meningococcal B, OMV 2017-05-25 Completed Univ ersity of 00:00:00 [facility] Meningococcal 2017-05-25 Completed University of Polysaccharide 00:00:00 [place] [facility] (groups A, C, Y and Branc h W-135) conjugate vaccine (MCV4P) Influenza Virus 2017-05-25 Completed Universit y of Vaccine Quad IM 3+ 00:00:00 [facility] Meningococcal B, OMV 2017-05-25 Completed Univ ersity of 00:00:00 [facility] Meningococcal 2017-05-25 Completed University of Polysaccharide 00:00:00 [place] [facility] (groups A, C, Y and Branc h W-135) conjugate vaccine (MCV4P) Influenza Virus 2017-05-25 Completed Universit y of Vaccine Quad IM 3+ 00:00:00 [facility] Meningococcal B, OMV 2017-05-25 Completed Univ ersity of 00:00:00 [facility] Meningococcal 2017-05-25 Completed University of Polysaccharide 00:00:00 [place] [facility] (groups A, C, Y and Branc h W-135) conjugate vaccine (MCV4P) Influenza Virus 2017-05-25 Completed Universit y of Vaccine Quad IM 3+ 00:00:00 [facility] Meningococcal B, OMV 2017-05-25 Completed Univ ersity of 00:00:00 [facility] Meningococcal 2017-05-25 Completed University of Polysaccharide 00:00:00 [place] [facility] (groups A, C, Y and Branc h W-135) conjugate vaccine (MCV4P) Influenza Virus 2017-05-25 Completed Universit y of Vaccine Quad IM 3+ 00:00:00 [facility] Meningococcal B, OMV 2017-05-25 Completed Univ ersity of 00:00:00 [facility] Meningococcal 2017-05-25 Completed University of Polysaccharide 00:00:00 [place] [facility] (groups A, C, Y and Branc h W-135) conjugate vaccine (MCV4P) Influenza Virus 2017-05-25 Completed Universit y of Vaccine Quad IM 3+ 00:00:00 [facility] Meningococcal B, OMV 2017-05-25 Completed Univ ersity of 00:00:00 [facility] Meningococcal 2017-05-25 Completed [facility] of Polysaccharide 00:00:00 [place] [facility] (groups A, C, Y and Branc h W-135) conjugate vaccine (MCV4P) Influenza Virus 2017-05-25 Completed Universit y of Vaccine Quad IM 3+ 00:00:00 [facility] Meningococcal B, OMV 2017-05-25 Completed Univ ersity of 00:00:00 [facility] Meningococcal 2017-05-25 Completed [facility] of Polysaccharide 00:00:00 [place] [facility] (groups A, C, Y and Branc h W-135) conjugate vaccine (MCV4P) Influenza Virus 2017-05-25 Completed Universit y of Vaccine Quad IM 3+ 00:00:00 [facility] Meningococcal B, OMV 2017-05-25 Completed Univ ersity of 00:00:00 [facility] Meningococcal 2017-05-25 Completed [facility] of Polysaccharide 00:00:00 [place] [facility] (groups A, C, Y and Branc h W-135) conjugate vaccine (MCV4P) Influenza Virus 2017-05-25 Completed Universit y of Vaccine Quad IM 3+ 00:00:00 [facility] Meningococcal B, OMV 2017-05-25 Completed Univ ersity of 00:00:00 [facility] TDAP 2016-09-10 Completed [facility] 00:00:00 [facility] HPV9 2016-09-10 Completed [facility] 00:00:00 [facility] Meningococcal 2016-09-10 Completed [facility] Polysaccharide 00:00:00 [facility] (groups A, C, Y and Branc h W-135) conjugate vaccine (MCV4P) TDAP 2016-09-10 Completed [facility] 00:00:00 [facility] HPV9 2016-09-10 Completed [facility] 00:00:00 [facility] Meningococcal 2016-09-10 Completed [facility] Polysaccharide 00:00:00 [facility] (groups A, C, Y and Branc h W-135) conjugate vaccine (MCV4P) TDAP 2016-09-10 Completed [facility] 00:00:00 [facility] HPV9 2016-09-10 Completed [facility] 00:00:00 [facility] Meningococcal 2016-09-10 Completed [facility] Polysaccharide 00:00:00 [facility] (groups A, C, Y and Branc h W-135) conjugate vaccine (MCV4P) TDAP 2016-09-10 Completed [facility] 00:00:00 [facility] HPV9 2016-09-10 Completed [facility] 00:00:00 [facility] Meningococcal 2016-09-10 Completed [facility] Polysaccharide 00:00:00 [facility] (groups A, C, Y and Branc h W-135) conjugate vaccine (MCV4P) TDAP 2016-09-10 Completed [facility] 00:00:00 [facility] HPV9 2016-09-10 Completed [facility] 00:00:00 [facility] Meningococcal 2016-09-10 Completed [facility] Polysaccharide 00:00:00 [facility] (groups A, C, Y and Branc h W-135) conjugate vaccine (MCV4P) TDAP 2016-09-10 Completed [facility] 00:00:00 [facility] HPV9 2016-09-10 Completed [facility] 00:00:00 [facility] Meningococcal 2016-09-10 Completed [facility] Polysaccharide 00:00:00 [facility] (groups A, C, Y and Branc h W-135) conjugate vaccine (MCV4P) TDAP 2016-09-10 Completed [facility] 00:00:00 [facility] HPV9 2016-09-10 Completed [facility] 00:00:00 [facility] Meningococcal 2016-09-10 Completed [facility] Polysaccharide 00:00:00 [facility] (groups A, C, Y and Branc h W-135) conjugate vaccine (MCV4P) Tdap 2016-09-10 Completed [facility] 00:00:00 [facility] HPV9 2016-09-10 Completed [facility] 00:00:00 [facility] Meningococcal 2016-09-10 Completed [facility] Polysaccharide 00:00:00 [facility] (groups A, C, Y and Branc h W-135) conjugate vaccine (MCV4P) TDAP 2016-09-10 Completed [facility] 00:00:00 [facility] HPV9 2016-09-10 Completed [facility] 00:00:00 [facility] Meningococcal 2016-09-10 Completed [facility] Polysaccharide 00:00:00 [place] [facility] (groups A, C, Y and Branc h W-135) conjugate vaccine (MCV4P) TDAP 2016-09-10 Completed [facility] 00:00:00 [facility] HPV9 2016-09-10 Completed [facility] 00:00:00 [facility] Meningococcal 2016-09-10 Completed [facility] Polysaccharide 00:00:00 [facility] (groups A, C, Y and Branc h W-135) conjugate vaccine (MCV4P) TDAP 2016-09-10 Completed [facility] 00:00:00 [facility] HPV9 2016-09-10 Completed [facility] 00:00:00 [facility] Meningococcal 2016-09-10 Completed [facility] Polysaccharide 00:00:00 [facility] (groups A, C, Y and Branc h W-135) conjugate vaccine (MCV4P) TDAP 2016-09-10 Completed [facility] 00:00:00 [facility] HPV9 2016-09-10 Completed [facility] 00:00:00 [facility] Meningococcal 2016-09-10 Completed [facility] Polysaccharide 00:00:00 [facility] (groups A, C, Y and Branc h W-135) conjugate vaccine (MCV4P) TDAP 2016-09-10 Completed [facility] 00:00:00 [facility] HPV9 2016-09-10 Completed [facility] 00:00:00 [facility] Meningococcal 2016-09-10 Completed [facility] Polysaccharide 00:00:00 [facility] (groups A, C, Y and Branc h W-135) conjugate vaccine (MCV4P) TDAP 2016-09-10 Completed [facility] 00:00:00 [facility] HPV9 2016-09-10 Completed [facility] 00:00:00 [facility] Meningococcal 2016-09-10 Completed [facility] Polysaccharide 00:00:00 [place] [facility] (groups A, C, Y and Branc h W-135) conjugate vaccine (MCV4P) TDAP 2016-09-10 Completed [facility] 00:00:00 [facility] HPV9 2016-09-10 Completed [facility] 00:00:00 [facility] Meningococcal 2016-09-10 Completed [facility] Polysaccharide 00:00:00 [place] [facility] (groups A, C, Y and Branc h W-135) conjugate vaccine (MCV4P) TDAP 2016-09-10 Completed [facility] 00:00:00 [facility] HPV9 2016-09-10 Completed [facility] 00:00:00 [facility] Meningococcal 2016-09-10 Completed [facility] Polysaccharide 00:00:00 [place] [facility] (groups A, C, Y and Branc h W-135) conjugate vaccine (MCV4P) TDAP 2016-09-10 Completed [facility] 00:00:00 [facility] HPV9 2016-09-10 Completed [facility] 00:00:00 [facility] Meningococcal 2016-09-10 Completed [facility] Polysaccharide 00:00:00 [place] [facility] (groups A, C, Y and Branc h W-135) conjugate vaccine (MCV4P) TDAP 2016-09-10 Completed [facility] 00:00:00 [facility] HPV9 2016-09-10 Completed [facility] 00:00:00 [facility] Meningococcal 2016-09-10 Completed [facility] Polysaccharide 00:00:00 [place] [facility] (groups A, C, Y and Branc h W-135) conjugate vaccine (MCV4P) HPV9 2016-09-10 Completed [facility] 00:00:00 [facility] Meningococcal 2016-09-10 Completed [facility] Polysaccharide 00:00:00 [facility] (groups A, C, Y and Branc h W-135) conjugate vaccine (MCV4P) TDAP 2016-09-10 Completed [facility] 00:00:00 [facility] Tdap 2016-09-10 Completed [facility] 00:00:00 [facility] HPV9 2016-09-10 Completed [facility] 00:00:00 [facility] Meningococcal 2016-09-10 Completed [facility] Polysaccharide 00:00:00 [place] [facility] (groups A, C, Y and Branc h W-135) conjugate vaccine (MCV4P) TDAP 2016-09-10 Completed [facility] 00:00:00 [facility] HPV9 2016-09-10 Completed [facility] 00:00:00 [facility] Meningococcal 2016-09-10 Completed [facility] Polysaccharide 00:00:00 [place] [facility] (groups A, C, Y and Branc h W-135) conjugate vaccine (MCV4P) TDAP 2016-09-10 Completed [facility] 00:00:00 [facility] HPV9 2016-09-10 Completed [facility] 00:00:00 [facility] Meningococcal 2016-09-10 Completed [facility] Polysaccharide 00:00:00 [place] [facility] (groups A, C, Y and Branc h W-135) conjugate vaccine (MCV4P) TDAP 2016-09-10 Completed [facility] 00:00:00 [facility] HPV9 2016-09-10 Completed [facility] 00:00:00 [facility] Meningococcal 2016-09-10 Completed [facility] Polysaccharide 00:00:00 [place] [facility] (groups A, C, Y and Branc h W-135) conjugate vaccine (MCV4P) TDAP 2016-09-10 Completed [facility] 00:00:00 [facility] HPV9 2016-09-10 Completed [facility] 00:00:00 [facility] Meningococcal 2016-09-10 Completed [facility] Polysaccharide 00:00:00 [place] [facility] (groups A, C, Y and Branc h W-135) conjugate vaccine (MCV4P) TDAP 2016-09-10 Completed [facility] 00:00:00 [facility] HPV9 2016-09-10 Completed [facility] 00:00:00 [facility] Meningococcal 2016-09-10 Completed [facility] Polysaccharide 00:00:00 [place] [facility] (groups A, C, Y and Branc h W-135) conjugate vaccine (MCV4P) TDAP 2016-09-10 Completed [facility] 00:00:00 [facility] HPV9 2016-09-10 Completed [facility] 00:00:00 [facility] Meningococcal 2016-09-10 Completed [facility] Polysaccharide 00:00:00 [place] [facility] (groups A, C, Y and Branc h W-135) conjugate vaccine (MCV4P) TDAP 2016-09-10 Completed [facility] 00:00:00 [facility] HPV9 2016-09-10 Completed [facility] 00:00:00 [facility] Meningococcal 2016-09-10 Completed [facility] Polysaccharide 00:00:00 [place] [facility] (groups A, C, Y and Branc h W-135) conjugate vaccine (MCV4P) TDAP 2016-09-10 Completed [facility] 00:00:00 [facility] HPV9 2016-09-10 Completed [facility] 00:00:00 [facility] Meningococcal 2016-09-10 Completed [facility] Polysaccharide 00:00:00 [place] [facility] (groups A, C, Y and Branc h W-135) conjugate vaccine (MCV4P) HPV9 2016-09-10 Completed [facility] 00:00:00 [facility] Tdap 2016-09-10 Completed [facility] 00:00:00 [facility] Meningococcal 2016-09-10 Completed [facility] Polysaccharide 00:00:00 [place] [facility] (groups A, C, Y and Branc h W-135) conjugate vaccine (MCV4P) TDAP 2016-09-10 Completed [facility] 00:00:00 [facility] HPV9 2016-09-10 Completed [facility] 00:00:00 [facility] Meningococcal 2016-09-10 Completed [facility] Polysaccharide 00:00:00 [place] [facility] (groups A, C, Y and Branc h W-135) conjugate vaccine (MCV4P) TDAP 2016-09-10 Completed [facility] 00:00:00 [facility] HPV9 2016-09-10 Completed [facility] 00:00:00 [facility] Meningococcal 2016-09-10 Completed [facility] Polysaccharide 00:00:00 [place] [facility] (groups A, C, Y and Branc h W-135) conjugate vaccine (MCV4P) TDAP 2016-09-10 Completed [facility] 00:00:00 [facility] HPV9 2016-09-10 Completed [facility] 00:00:00 [facility] Meningococcal 2016-09-10 Completed [facility] Polysaccharide 00:00:00 [place] [facility] (groups A, C, Y and Branc h W-135) conjugate vaccine (MCV4P) TDAP 2016-09-10 Completed [facility] 00:00:00 [facility] HPV9 2016-09-10 Completed [facility] 00:00:00 [facility] Meningococcal 2016-09-10 Completed [facility] Polysaccharide 00:00:00 [place] [facility] (groups A, C, Y and Branc h W-135) conjugate vaccine (MCV4P) TDAP 2016-09-10 Completed [facility] 00:00:00 [facility] HPV9 2016-09-10 Completed [facility] 00:00:00 [facility] Meningococcal 2016-09-10 Completed [facility] Polysaccharide 00:00:00 [place] [facility] (groups A, C, Y and Branc h W-135) conjugate vaccine (MCV4P) Tdap 2016-09-10 Completed [facility] 00:00:00 [facility] HPV9 2016-09-10 Completed [facility] 00:00:00 [facility] Meningococcal 2016-09-10 Completed [facility] Polysaccharide 00:00:00 [place] [facility] (groups A, C, Y and Branc h W-135) conjugate vaccine (MCV4P) Tdap 2016-09-10 Completed [facility] 00:00:00 [facility] HPV9 2016-09-10 Completed [facility] 00:00:00 [facility] Meningococcal 2016-09-10 Completed [facility] Polysaccharide 00:00:00 [place] [facility] (groups A, C, Y and Branc h W-135) conjugate vaccine (MCV4P) Tdap 2016-09-10 Completed [facility] 00:00:00 [facility] HPV9 2016-09-10 Completed [facility] 00:00:00 [facility] Meningococcal 2016-09-10 Completed [facility] Polysaccharide 00:00:00 [place] [facility] (groups A, C, Y and Branc h W-135) conjugate vaccine (MCV4P) TDAP 2016-09-10 Completed [facility] 00:00:00 [facility] HPV9 2016-09-10 Completed [facility] 00:00:00 [facility] Meningococcal 2016-09-10 Completed [facility] Polysaccharide 00:00:00 [place] [facility] (groups A, C, Y and Branc h W-135) conjugate vaccine (MCV4P) TDAP 2016-09-10 Completed [facility] 00:00:00 [facility] HPV9 2016-09-10 Completed [facility] 00:00:00 [facility] Meningococcal 2016-09-10 Completed [facility] Polysaccharide 00:00:00 [place] [facility] (groups A, C, Y and Branc h W-135) conjugate vaccine (MCV4P) TDAP 2016-09-10 Completed [facility] 00:00:00 [facility] HPV9 2016-09-10 Completed [facility] 00:00:00 [facility] Meningococcal 2016-09-10 Completed [facility] Polysaccharide 00:00:00 [place] [facility] (groups A, C, Y and Branc h W-135) conjugate vaccine (MCV4P) TDAP 2016-09-10 Completed [facility] 00:00:00 [facility] HPV9 2016-09-10 Completed [facility] 00:00:00 [facility] Meningococcal 2016-09-10 Completed [facility] Polysaccharide 00:00:00 [place] [facility] (groups A, C, Y and Branc h W-135) conjugate vaccine (MCV4P) TDAP 2016-09-10 Completed [facility] 00:00:00 [facility] HPV9 2016-09-10 Completed [facility] 00:00:00 [facility] Meningococcal 2016-09-10 Completed [facility] Polysaccharide 00:00:00 [place] [facility] (groups A, C, Y and Branc h W-135) conjugate vaccine (MCV4P) TDAP 2016-09-10 Completed [facility] 00:00:00 [facility] HPV9 2016-09-10 Completed [facility] 00:00:00 [facility] Meningococcal 2016-09-10 Completed [facility] Polysaccharide 00:00:00 [place] [facility] (groups A, C, Y and Branc h W-135) conjugate vaccine (MCV4P) TDAP 2016-09-10 Completed [facility] 00:00:00 [facility] HPV9 2016-09-10 Completed [facility] 00:00:00 [facility] Meningococcal 2016-09-10 Completed [facility] Polysaccharide 00:00:00 [place] [facility] (groups A, C, Y and Branc h W-135) conjugate vaccine (MCV4P) TDAP 2016-09-10 Completed [facility] 00:00:00 [facility] HPV9 2016-09-10 Completed [facility] 00:00:00 [facility] Meningococcal 2016-09-10 Completed [facility] Polysaccharide 00:00:00 [place] [facility] (groups A, C, Y and Branc h W-135) conjugate vaccine (MCV4P) TDAP 2016-09-10 Completed [facility] 00:00:00 [facility] HPV9 2016-09-10 Completed [facility] 00:00:00 [facility] Meningococcal 2016-09-10 Completed [facility] Polysaccharide 00:00:00 [place] [facility] (groups A, C, Y and Branc h W-135) conjugate vaccine (MCV4P) TDAP 2016-09-10 Completed [facility] 00:00:00 [facility] HPV9 2016-09-10 Completed [facility] 00:00:00 [facility] Meningococcal 2016-09-10 Completed [facility] Polysaccharide 00:00:00 [place] [facility] (groups A, C, Y and Branc h W-135) conjugate vaccine (MCV4P) TDAP 2016-09-10 Completed [facility] 00:00:00 [facility] HPV9 2016-09-10 Completed [facility] 00:00:00 [facility] Meningococcal 2016-09-10 Completed [facility] Polysaccharide 00:00:00 [place] [facility] (groups A, C, Y and Branc h W-135) conjugate vaccine (MCV4P) TDAP 2016-09-10 Completed [facility] 00:00:00 [facility] HPV9 2016-09-10 Completed [facility] 00:00:00 [facility] Meningococcal 2016-09-10 Completed [facility] Polysaccharide 00:00:00 [place] [facility] (groups A, C, Y and Branc h W-135) conjugate vaccine (MCV4P) TDAP 2016-09-10 Completed [facility] 00:00:00 [facility] HPV9 2016-09-10 Completed [facility] 00:00:00 [facility] Meningococcal 2016-09-10 Completed [facility] Polysaccharide 00:00:00 [place] [facility] (groups A, C, Y and Branc h W-135) conjugate vaccine (MCV4P) HPV 2010-03-03 Completed [facility] 00:00:00 [facility] Influenza Virus 2010-03-03 Completed [facility] Vaccine 00:00:00 [facility] HPV 2010-03-03 Completed [facility] 00:00:00 [facility] Influenza Virus 2010-03-03 Completed [facility] Vaccine 00:00:00 [facility] HPV 2010-03-03 Completed [facility] 00:00:00 [facility] Influenza Virus 2010-03-03 Completed [facility] Vaccine 00:00:00 [facility] HPV 2010-03-03 Completed [facility] 00:00:00 [facility] Influenza Virus 2010-03-03 Completed [facility] Vaccine 00:00:00 [facility] HPV 2010-03-03 Completed [facility] 00:00:00 [facility] Influenza Virus 2010-03-03 Completed [facility] Vaccine 00:00:00 [facility] HPV 2010-03-03 Completed [facility] 00:00:00 [facility] Influenza Virus 2010-03-03 Completed [facility] Vaccine 00:00:00 [facility] HPV 2010-03-03 Completed [facility] 00:00:00 [facility] Influenza Virus 2010-03-03 Completed [facility] Vaccine 00:00:00 [facility] HPV 2010-03-03 Completed [facility] 00:00:00 [facility] Influenza Virus 2010-03-03 Completed [facility] Vaccine 00:00:00 [facility] HPV 2010-03-03 Completed [facility] 00:00:00 [facility] Influenza Virus 2010-03-03 Completed [facility] Vaccine 00:00:00 [facility] HPV 2010-03-03 Completed [facility] 00:00:00 [facility] HPV 2010-03-03 Completed [facility] 00:00:00 [facility] Influenza Virus 2010-03-03 Completed [facility] Vaccine 00:00:00 [facility] Influenza Virus 2010-03-03 Completed [facility] Vaccine 00:00:00 [facility] HPV 2010-03-03 Completed [facility] 00:00:00 [facility] Influenza Virus 2010-03-03 Completed [facility] Vaccine 00:00:00 [facility] HPV 2010-03-03 Completed [facility] 00:00:00 [facility] Influenza Virus 2010-03-03 Completed [facility] Vaccine 00:00:00 [facility] HPV 2010-03-03 Completed [facility] 00:00:00 [facility] Influenza Virus 2010-03-03 Completed [facility] Vaccine 00:00:00 [facility] HPV 2010-03-03 Completed [facility] 00:00:00 [facility] Influenza Virus 2010-03-03 Completed [facility] Vaccine 00:00:00 [facility] HPV 2010-03-03 Completed [facility] 00:00:00 [facility] Influenza Virus 2010-03-03 Completed [facility] Vaccine 00:00:00 [facility] HPV 2010-03-03 Completed [facility] 00:00:00 [facility] Influenza Virus 2010-03-03 Completed [facility] Vaccine 00:00:00 [facility] HPV 2010-03-03 Completed [facility] 00:00:00 [facility] Influenza Virus 2010-03-03 Completed [facility] Vaccine 00:00:00 [facility] HPV 2010-03-03 Completed [facility] 00:00:00 [facility] Influenza Virus 2010-03-03 Completed [facility] Vaccine 00:00:00 [facility] HPV 2010-03-03 Completed [facility] 00:00:00 [facility] HPV 2010-03-03 Completed [facility] 00:00:00 [facility] Influenza Virus 2010-03-03 Completed [facility] Vaccine 00:00:00 [facility] Influenza Virus 2010-03-03 Completed [facility] Vaccine 00:00:00 [facility] HPV 2010-03-03 Completed [facility] 00:00:00 [facility] Influenza Virus 2010-03-03 Completed [facility] Vaccine 00:00:00 [facility] HPV 2010-03-03 Completed [facility] 00:00:00 [facility] Influenza Virus 2010-03-03 Completed [facility] Vaccine 00:00:00 [facility] HPV 2010-03-03 Completed [facility] 00:00:00 [facility] Influenza Virus 2010-03-03 Completed [facility] Vaccine 00:00:00 [facility] HPV 2010-03-03 Completed [facility] 00:00:00 [facility] Influenza Virus 2010-03-03 Completed [facility] Vaccine 00:00:00 [facility] HPV 2010-03-03 Completed [facility] 00:00:00 [facility] Influenza Virus 2010-03-03 Completed [facility] Vaccine 00:00:00 [facility] HPV 2010-03-03 Completed [facility] 00:00:00 [facility] Influenza Virus 2010-03-03 Completed [facility] Vaccine 00:00:00 [facility] HPV 2010-03-03 Completed [facility] 00:00:00 [facility] Influenza Virus 2010-03-03 Completed [facility] Vaccine 00:00:00 [facility] HPV 2010-03-03 Completed [facility] 00:00:00 [facility] Influenza Virus 2010-03-03 Completed [facility] Vaccine 00:00:00 [facility] HPV 2010-03-03 Completed [facility] 00:00:00 [facility] Influenza Virus 2010-03-03 Completed [facility] Vaccine 00:00:00 [facility] HPV 2010-03-03 Completed [facility] 00:00:00 [facility] Influenza Virus 2010-03-03 Completed [facility] Vaccine 00:00:00 [facility] HPV 2010-03-03 Completed [facility] 00:00:00 [facility] Influenza Virus 2010-03-03 Completed [facility] Vaccine 00:00:00 [facility] HPV 2010-03-03 Completed [facility] 00:00:00 [facility] Influenza Virus 2010-03-03 Completed [facility] Vaccine 00:00:00 [facility] HPV 2010-03-03 Completed [facility] 00:00:00 [facility] Influenza Virus 2010-03-03 Completed [facility] Vaccine 00:00:00 [facility] HPV 2010-03-03 Completed [facility] 00:00:00 [facility] Influenza Virus 2010-03-03 Completed [facility] Vaccine 00:00:00 [facility] HPV 2010-03-03 Completed [facility] 00:00:00 [facility] Influenza Virus 2010-03-03 Completed [facility] Vaccine 00:00:00 [facility] HPV 2010-03-03 Completed [facility] 00:00:00 [facility] Influenza Virus 2010-03-03 Completed [facility] Vaccine 00:00:00 [facility] HPV 2010-03-03 Completed [facility] 00:00:00 [facility] Influenza Virus 2010-03-03 Completed [facility] Vaccine 00:00:00 [facility] HPV 2010-03-03 Completed [facility] 00:00:00 [facility] Influenza Virus 2010-03-03 Completed [facility] Vaccine 00:00:00 [facility] HPV 2010-03-03 Completed [facility] 00:00:00 [facility] Influenza Virus 2010-03-03 Completed [facility] Vaccine 00:00:00 [facility] HPV 2010-03-03 Completed [facility] 00:00:00 [facility] Influenza Virus 2010-03-03 Completed [facility] Vaccine 00:00:00 [facility] HPV 2010-03-03 Completed [facility] 00:00:00 [facility] Influenza Virus 2010-03-03 Completed [facility] Vaccine 00:00:00 [facility] HPV 2010-03-03 Completed [facility] 00:00:00 [facility] Influenza Virus 2010-03-03 Completed [facility] Vaccine 00:00:00 [facility] HPV 2010-03-03 Completed [facility] 00:00:00 [facility] Influenza Virus 2010-03-03 Completed [facility] Vaccine 00:00:00 [facility] HPV 2010-03-03 Completed [facility] 00:00:00 [facility] Influenza Virus 2010-03-03 Completed [facility] Vaccine 00:00:00 [facility] HPV 2010-03-03 Completed [facility] 00:00:00 [facility] Influenza Virus 2010-03-03 Completed [facility] Vaccine 00:00:00 [facility] HPV 2010-03-03 Completed [facility] 00:00:00 [facility] Influenza Virus 2010-03-03 Completed [facility] Vaccine 00:00:00 [facility] HPV 2010-03-03 Completed [facility] 00:00:00 [facility] Influenza Virus 2010-03-03 Completed [facility] Vaccine 00:00:00 [facility] HPV 2010-03-03 Completed [facility] 00:00:00 [facility] Influenza Virus 2010-03-03 Completed [facility] Vaccine 00:00:00 [facility] HPV 2010-03-03 Completed [facility] 00:00:00 [facility] Influenza Virus 2010-03-03 Completed [facility] Vaccine 00:00:00 [facility] Varicella 2008-11-15 Completed [facility] (varivax[facility]chicken 00:00:00 [place] [facility] Varicella 2008-11-15 Completed [facility] (varivax)(chicken 00:00:00 [place] [facility] Varicella 2008-11-15 Completed [facility] (varivax)(chicken 00:00:00 [place] [facility] Varicella 2008-11-15 Completed [facility] (varivax)(chicken 00:00:00 [place] [facility] Varicella 2008-11-15 Completed [facility] (varivax)(chicken 00:00:00 [place] [facility] Varicella 2008-11-15 Completed [facility] (varivax)(chicken 00:00:00 [place] [facility] Varicella 2008-11-15 Completed [facility] (varivax)(chicken 00:00:00 [place] [facility] Varicella 2008-11-15 Completed [facility] (varivax)(chicken 00:00:00 [place] [facility] Varicella 2008-11-15 Completed [facility] (varivax)(chicken 00:00:00 [place] [facility] Varicella 2008-11-15 Completed [facility] (varivax)(chicken 00:00:00 [place] [facility] Varicella 2008-11-15 Completed [facility] (varivax)(chicken 00:00:00 [place] [facility] Varicella 2008-11-15 Completed [facility] (varivax)(chicken 00:00:00 [place] [facility] Varicella 2008-11-15 Completed [facility] (varivax)(chicken 00:00:00 [place] [facility] Varicella 2008-11-15 Completed [facility] (varivax)(chicken 00:00:00 [place] [facility] Varicella 2008-11-15 Completed [facility] (varivax)(chicken 00:00:00 [place] [facility] Varicella 2008-11-15 Completed [facility] (varivax)(chicken 00:00:00 [place] [facility] Varicella 2008-11-15 Completed [facility] (varivax)(chicken 00:00:00 [place] [facility] Varicella 2008-11-15 Completed [facility] (varivax)(chicken 00:00:00 [place] [facility] Varicella 2008-11-15 Completed [facility] (varivax)(chicken 00:00:00 [place] [facility] Varicella 2008-11-15 Completed [facility] (varivax)(chicken 00:00:00 [place] [facility] Varicella 2008-11-15 Completed [facility] (varivax)(chicken 00:00:00 [place] [facility] Varicella 2008-11-15 Completed [facility] (varivax)(chicken 00:00:00 [place] [facility] Varicella 2008-11-15 Completed [facility] (varivax)(chicken 00:00:00 [place] [facility] Varicella 2008-11-15 Completed [facility] (varivax)(chicken 00:00:00 [place] [facility] Varicella 2008-11-15 Completed [facility] (varivax)(chicken 00:00:00 [place] [facility] Varicella 2008-11-15 Completed [facility] (varivax)(chicken 00:00:00 [place] [facility] Varicella 2008-11-15 Completed [facility] (varivax)(chicken 00:00:00 [place] [facility] Varicella 2008-11-15 Completed [facility] (varivax)(chicken 00:00:00 [place] [facility] Varicella 2008-11-15 Completed [facility] (varivax)(chicken 00:00:00 [place] [facility] Varicella 2008-11-15 Completed [facility] (varivax)(chicken 00:00:00 [place] [facility] Varicella 2008-11-15 Completed [facility] (varivax)(chicken 00:00:00 [place] [facility] Varicella 2008-11-15 Completed [facility] (varivax)(chicken 00:00:00 [place] [facility] Varicella 2008-11-15 Completed [facility] (varivax)(chicken 00:00:00 [place] [facility] Varicella 2008-11-15 Completed [facility] (varivax)(chicken 00:00:00 [place] [facility] Varicella 2008-11-15 Completed [facility] (varivax)(chicken 00:00:00 [place] [facility] Varicella 2008-11-15 Completed [facility] (varivax)(chicken 00:00:00 [place] [facility] Varicella 2008-11-15 Completed [facility] (varivax)(chicken 00:00:00 [place] [facility] Varicella 2008-11-15 Completed [facility] (varivax)(chicken 00:00:00 [place] [facility] Varicella 2008-11-15 Completed [facility] (varivax)(chicken 00:00:00 [place] [facility] Varicella 2008-11-15 Completed [facility] (varivax)(chicken 00:00:00 [place] [facility] Varicella 2008-11-15 Completed [facility] (varivax)(chicken 00:00:00 [place] [facility] Varicella 2008-11-15 Completed [facility] (varivax)(chicken 00:00:00 [place] [facility] Varicella 2008-11-15 Completed [facility] (varivax)(chicken 00:00:00 [place] [facility] Varicella 2008-11-15 Completed [facility] (varivax)(chicken 00:00:00 [place] [facility] Varicella 2008-11-15 Completed [facility] (varivax)(chicken 00:00:00 [place] [facility] Varicella 2008-11-15 Completed [facility] (varivax)(chicken 00:00:00 [place] [facility] Varicella 2008-11-15 Completed [facility] (varivax)(chicken 00:00:00 [place] [facility] Varicella 2008-11-15 Completed [facility] (varivax)(chicken 00:00:00 [place] [facility] Varicella 2008-11-15 Completed [facility] (varivax)(chicken 00:00:00 [place] [facility] Varicella 2008-11-15 Completed [facility] (varivax)(chicken 00:00:00 [place] [facility] Influenza Virus 2007-06-02 Completed [facility] Vaccine 00:00:00 [facility] Influenza Virus 2007-06-02 Completed [facility] Vaccine 00:00:00 [facility] Influenza Virus 2007-06-02 Completed [facility] Vaccine 00:00:00 [facility] Influenza Virus 2007-06-02 Completed [facility] Vaccine 00:00:00 [facility] Influenza Virus 2007-06-02 Completed [facility] Vaccine 00:00:00 [facility] Influenza Virus 2007-06-02 Completed [facility] Vaccine 00:00:00 [facility] Influenza Virus 2007-06-02 Completed [facility] Vaccine 00:00:00 [facility] Influenza Virus 2007-06-02 Completed [facility] Vaccine 00:00:00 [facility] Influenza Virus 2007-06-02 Completed [facility] Vaccine 00:00:00 [facility] Influenza Virus 2007-06-02 Completed [facility] Vaccine 00:00:00 [facility] Influenza Virus 2007-06-02 Completed [facility] Vaccine 00:00:00 [facility] Influenza Virus 2007-06-02 Completed [facility] Vaccine 00:00:00 [facility] Influenza Virus 2007-06-02 Completed [facility] Vaccine 00:00:00 [facility] Influenza Virus 2007-06-02 Completed [facility] Vaccine 00:00:00 [facility] Influenza Virus 2007-06-02 Completed [facility] Vaccine 00:00:00 [facility] Influenza Virus 2007-06-02 Completed [facility] Vaccine 00:00:00 [facility] Influenza Virus 2007-06-02 Completed [facility] Vaccine 00:00:00 [facility] Influenza Virus 2007-06-02 Completed [facility] Vaccine 00:00:00 [facility] Influenza Virus 2007-06-02 Completed [facility] Vaccine 00:00:00 [facility] Influenza Virus 2007-06-02 Completed [facility] Vaccine 00:00:00 [facility] Influenza Virus 2007-06-02 Completed [facility] Vaccine 00:00:00 [facility] Influenza Virus 2007-06-02 Completed [facility] Vaccine 00:00:00 [facility] Influenza Virus 2007-06-02 Completed [facility] Vaccine 00:00:00 [facility] Influenza Virus 2007-06-02 Completed [facility] Vaccine 00:00:00 [facility] Influenza Virus 2007-06-02 Completed [facility] Vaccine 00:00:00 [facility] Influenza Virus 2007-06-02 Completed [facility] Vaccine 00:00:00 [facility] Influenza Virus 2007-06-02 Completed [facility] Vaccine 00:00:00 [facility] Influenza Virus 2007-06-02 Completed [facility] Vaccine 00:00:00 [facility] Influenza Virus 2007-06-02 Completed [facility] Vaccine 00:00:00 [facility] Influenza Virus 2007-06-02 Completed [facility] Vaccine 00:00:00 [facility] Influenza Virus 2007-06-02 Completed [facility] Vaccine 00:00:00 [facility] Influenza Virus 2007-06-02 Completed [facility] Vaccine 00:00:00 [facility] Influenza Virus 2007-06-02 Completed [facility] Vaccine 00:00:00 [facility] Influenza Virus 2007-06-02 Completed [facility] Vaccine 00:00:00 [facility] Influenza Virus 2007-06-02 Completed [facility] Vaccine 00:00:00 [facility] Influenza Virus 2007-06-02 Completed [facility] Vaccine 00:00:00 [facility] Influenza Virus 2007-06-02 Completed [facility] Vaccine 00:00:00 [facility] Influenza Virus 2007-06-02 Completed [facility] Vaccine 00:00:00 [facility] Influenza Virus 2007-06-02 Completed [facility] Vaccine 00:00:00 [facility] Influenza Virus 2007-06-02 Completed [facility] Vaccine 00:00:00 [facility] Influenza Virus 2007-06-02 Completed [facility] Vaccine 00:00:00 [facility] Influenza Virus 2007-06-02 Completed [facility] Vaccine 00:00:00 [facility] Influenza Virus 2007-06-02 Completed [facility] Vaccine 00:00:00 [facility] Influenza Virus 2007-06-02 Completed [facility] Vaccine 00:00:00 [facility] Influenza Virus 2007-06-02 Completed [facility] Vaccine 00:00:00 [facility] Influenza Virus 2007-06-02 Completed [facility] Vaccine 00:00:00 [facility] Influenza Virus 2007-06-02 Completed [facility] Vaccine 00:00:00 [facility] Influenza Virus 2007-06-02 Completed [facility] Vaccine 00:00:00 [facility] Influenza Virus 2007-06-02 Completed [facility] Vaccine 00:00:00 [facility] Influenza Virus 2007-06-02 Completed [facility] Vaccine 00:00:00 [facility] HEPATITIS A 2005-11-09 Completed [facility] 00:00:00 [facility] HEPATITIS A 2005-11-09 Completed [facility] 00:00:00 [facility] HEPATITIS A 2005-11-09 Completed [facility] 00:00:00 [facility] HEPATITIS A 2005-11-09 Completed [facility] 00:00:00 [facility] HEPATITIS A 2005-11-09 Completed [facility] 00:00:00 [facility] HEPATITIS A 2005-11-09 Completed [facility] 00:00:00 [facility] HEPATITIS A 2005-11-09 Completed [facility] 00:00:00 [facility] HEPATITIS A 2005-11-09 Completed [facility] 00:00:00 [facility] HEPATITIS A 2005-11-09 Completed [facility] 00:00:00 [facility] HEPATITIS A 2005-11-09 Completed [facility] 00:00:00 [facility] HEPATITIS A 2005-11-09 Completed [facility] 00:00:00 [facility] HEPATITIS A 2005-11-09 Completed [facility] 00:00:00 [facility] HEPATITIS A 2005-11-09 Completed [facility] 00:00:00 [facility] HEPATITIS A 2005-11-09 Completed [facility] 00:00:00 [facility] HEPATITIS A 2005-11-09 Completed [facility] of 00:00:00 [facility] HEPATITIS A 2005-11-09 Completed [facility] 00:00:00 [facility] HEPATITIS A 2005-11-09 Completed [facility] 00:00:00 [facility] HEPATITIS A 2005-11-09 Completed [facility] 00:00:00 [facility] HEPATITIS A 2005-11-09 Completed [facility] 00:00:00 [facility] HEPATITIS A 2005-11-09 Completed [facility] 00:00:00 [facility] HEPATITIS A 2005-11-09 Completed [facility] 00:00:00 [facility] HEPATITIS A 2005-11-09 Completed [facility] 00:00:00 [facility] HEPATITIS A 2005-11-09 Completed [facility] 00:00:00 [facility] HEPATITIS A 2005-11-09 Completed [facility] 00:00:00 [facility] HEPATITIS A 2005-11-09 Completed [facility] 00:00:00 [facility] HEPATITIS A 2005-11-09 Completed [facility] 00:00:00 [facility] HEPATITIS A 2005-11-09 Completed [facility] 00:00:00 [facility] HEPATITIS A 2005-11-09 Completed [facility] 00:00:00 [facility] HEPATITIS A 2005-11-09 Completed [facility] 00:00:00 [facility] HEPATITIS A 2005-11-09 Completed [facility] 00:00:00 [facility] HEPATITIS A 2005-11-09 Completed [facility] 00:00:00 [facility] HEPATITIS A 2005-11-09 Completed [facility] 00:00:00 [facility] HEPATITIS A 2005-11-09 Completed [facility] 00:00:00 [facility] HEPATITIS A 2005-11-09 Completed [facility] 00:00:00 [facility] HEPATITIS A 2005-11-09 Completed [facility] 00:00:00 [facility] HEPATITIS A 2005-11-09 Completed [facility] 00:00:00 [facility] HEPATITIS A 2005-11-09 Completed [facility] 00:00:00 [facility] HEPATITIS A 2005-11-09 Completed [facility] 00:00:00 [facility] HEPATITIS A 2005-11-09 Completed [facility] 00:00:00 [facility] HEPATITIS A 2005-11-09 Completed [facility] 00:00:00 [facility] HEPATITIS A 2005-11-09 Completed [facility] 00:00:00 [facility] HEPATITIS A 2005-11-09 Completed [facility] 00:00:00 [facility] HEPATITIS A 2005-11-09 Completed [facility] 00:00:00 [facility] HEPATITIS A 2005-11-09 Completed [facility] 00:00:00 [facility] HEPATITIS A 2005-11-09 Completed [facility] 00:00:00 [facility] HEPATITIS A 2005-11-09 Completed [facility] 00:00:00 [facility] HEPATITIS A 2005-11-09 Completed [facility] 00:00:00 [facility] HEPATITIS A 2005-11-09 Completed [facility] 00:00:00 [facility] HEPATITIS A 2005-11-09 Completed [facility] 00:00:00 [facility] HEPATITIS A 2005-11-09 Completed [facility] 00:00:00 [facility] MMR 2005-06-21 Completed [facility] of 00:00:00 [facility] DTAP 2005-06-21 Completed [facility] 00:00:00 [facility] MMR 2005-06-21 Completed [facility] of 00:00:00 [facility] Polio (IPV/OPV) 2005-06-21 Completed [facility] 00:00:00 [facility] Varicella 2005-06-21 Completed [facility] (varivax)(chicken 00:00:00 [place] [facility] Polio (IPV/OPV) 2005-06-21 Completed [facility] 00:00:00 [facility] Varicella 2005-06-21 Completed [facility] (varivax)(chicken 00:00:00 [place] [facility] DTAP 2005-06-21 Completed [facility] 00:00:00 [facility] MMR 2005-06-21 Completed [facility] 00:00:00 [facility] Polio (IPV/OPV) 2005-06-21 Completed [facility] 00:00:00 [facility] Varicella 2005-06-21 Completed [facility] (varivax)(chicken 00:00:00 [place] [facility] DTAP 2005-06-21 Completed [facility] 00:00:00 [facility] MMR 2005-06-21 Completed [facility] 00:00:00 [facility] Polio (IPV/OPV) 2005-06-21 Completed [facility] 00:00:00 [facility] Varicella 2005-06-21 Completed [facility] (varivax)(chicken 00:00:00 [place] [facility] DTAP 2005-06-21 Completed [facility] 00:00:00 [facility] MMR 2005-06-21 Completed [facility] 00:00:00 [facility] Polio (IPV/OPV) 2005-06-21 Completed [facility] 00:00:00 [facility] Varicella 2005-06-21 Completed [facility] (varivax)(chicken 00:00:00 [place] [facility] DTAP 2005-06-21 Completed [facility] 00:00:00 [facility] MMR 2005-06-21 Completed [facility] 00:00:00 [facility] Polio (IPV/OPV) 2005-06-21 Completed [facility] 00:00:00 [facility] Varicella 2005-06-21 Completed [facility] (varivax)(chicken 00:00:00 [place] [facility] DTAP 2005-06-21 Completed [facility] 00:00:00 [facility] MMR 2005-06-21 Completed [facility] 00:00:00 [facility] Polio (IPV/OPV) 2005-06-21 Completed [facility] 00:00:00 [facility] Varicella 2005-06-21 Completed [facility] (varivax)(chicken 00:00:00 [place] [facility] DTAP 2005-06-21 Completed [facility] 00:00:00 [facility] MMR 2005-06-21 Completed [facility] 00:00:00 [facility] Polio (IPV/OPV) 2005-06-21 Completed [facility] 00:00:00 [facility] Varicella 2005-06-21 Completed [facility] (varivax)(chicken 00:00:00 [place] [facility] DTAP 2005-06-21 Completed [facility] 00:00:00 [facility] DTAP 2005-06-21 Completed [facility] 00:00:00 [facility] MMR 2005-06-21 Completed [facility] 00:00:00 [facility] Polio (IPV/OPV) 2005-06-21 Completed [facility] 00:00:00 [facility] Varicella 2005-06-21 Completed [facility] (varivax)(chicken 00:00:00 [place] [facility] DTAP 2005-06-21 Completed [facility] 00:00:00 [facility] MMR 2005-06-21 Completed [facility] 00:00:00 [facility] Polio (IPV/OPV) 2005-06-21 Completed [facility] 00:00:00 [facility] Varicella 2005-06-21 Completed [facility] (varivax)(chicken 00:00:00 [place] [facility] DTAP 2005-06-21 Completed [facility] 00:00:00 [facility] MMR 2005-06-21 Completed [facility] 00:00:00 [facility] Polio (IPV/OPV) 2005-06-21 Completed [facility] 00:00:00 [facility] Varicella 2005-06-21 Completed [facility] (varivax)(chicken 00:00:00 [place] [facility] DTAP 2005-06-21 Completed [facility] 00:00:00 [facility] MMR 2005-06-21 Completed [facility] 00:00:00 [facility] MMR 2005-06-21 Completed [facility] 00:00:00 [facility] Polio (IPV/OPV) 2005-06-21 Completed [facility] 00:00:00 [facility] Varicella 2005-06-21 Completed [facility] (varivax)(chicken 00:00:00 [place] [facility] DTAP 2005-06-21 Completed [facility] 00:00:00 [facility] Polio (IPV/OPV) 2005-06-21 Completed [facility] 00:00:00 [facility] MMR 2005-06-21 Completed [facility] 00:00:00 [facility] Polio (IPV/OPV) 2005-06-21 Completed [facility] 00:00:00 [facility] Varicella 2005-06-21 Completed [facility] (varivax)(chicken 00:00:00 [place] [facility] Varicella 2005-06-21 Completed [facility] (varivax)(chicken 00:00:00 [place] [facility] DTAP 2005-06-21 Completed [facility] 00:00:00 [facility] MMR 2005-06-21 Completed [facility] 00:00:00 [facility] Polio (IPV/OPV) 2005-06-21 Completed [facility] 00:00:00 [facility] Varicella 2005-06-21 Completed [facility] (varivax)(chicken 00:00:00 [place] [facility] DTAP 2005-06-21 Completed [facility] 00:00:00 [facility] MMR 2005-06-21 Completed [facility] 00:00:00 [facility] Polio (IPV/OPV) 2005-06-21 Completed [facility] 00:00:00 [facility] Varicella 2005-06-21 Completed [facility] (varivax)(chicken 00:00:00 [place] [facility] DTAP 2005-06-21 Completed [facility] 00:00:00 [facility] MMR 2005-06-21 Completed [facility] 00:00:00 [facility] Polio (IPV/OPV) 2005-06-21 Completed [facility] 00:00:00 [facility] Varicella 2005-06-21 Completed [facility] (varivax)(chicken 00:00:00 [place] [facility] DTAP 2005-06-21 Completed [facility] 00:00:00 [facility] MMR 2005-06-21 Completed [facility] 00:00:00 [facility] Polio (IPV/OPV) 2005-06-21 Completed [facility] 00:00:00 [facility] Varicella 2005-06-21 Completed [facility] (varivax)(chicken 00:00:00 [place] [facility] DTAP 2005-06-21 Completed [facility] 00:00:00 [facility] DTAP 2005-06-21 Completed [facility] 00:00:00 [facility] MMR 2005-06-21 Completed [facility] of 00:00:00 [facility] Polio (IPV/OPV) 2005-06-21 Completed [facility] 00:00:00 [facility] Varicella 2005-06-21 Completed [facility] (varivax)(chicken 00:00:00 [place] [facility] DTAP 2005-06-21 Completed [facility] 00:00:00 [facility] MMR 2005-06-21 Completed [facility] 00:00:00 [facility] Polio (IPV/OPV) 2005-06-21 Completed [facility] 00:00:00 [facility] Varicella 2005-06-21 Completed [facility] (varivax)(chicken 00:00:00 [place] [facility] DTAP 2005-06-21 Completed [facility] 00:00:00 [facility] MMR 2005-06-21 Completed [facility] 00:00:00 [facility] Polio (IPV/OPV) 2005-06-21 Completed [facility] 00:00:00 [facility] Varicella 2005-06-21 Completed [facility] (varivax)(chicken 00:00:00 [place] [facility] MMR 2005-06-21 Completed [facility] 00:00:00 [facility] DTAP 2005-06-21 Completed [facility] 00:00:00 [facility] MMR 2005-06-21 Completed [facility] 00:00:00 [facility] Polio (IPV/OPV) 2005-06-21 Completed [facility] 00:00:00 [facility] Varicella 2005-06-21 Completed [facility] (varivax)(chicken 00:00:00 [place] [facility] DTAP 2005-06-21 Completed [facility] 00:00:00 [facility] Polio (IPV/OPV) 2005-06-21 Completed [facility] 00:00:00 [facility] Varicella 2005-06-21 Completed [facility] (varivax)(chicken 00:00:00 [place] [facility] MMR 2005-06-21 Completed [facility] 00:00:00 [facility] Polio (IPV/OPV) 2005-06-21 Completed [facility] 00:00:00 [facility] Varicella 2005-06-21 Completed [facility] (varivax)(chicken 00:00:00 [place] [facility] DTAP 2005-06-21 Completed [facility] 00:00:00 [facility] MMR 2005-06-21 Completed [facility] 00:00:00 [facility] Polio (IPV/OPV) 2005-06-21 Completed [facility] 00:00:00 [facility] Varicella 2005-06-21 Completed [facility] of (varivax)(chicken 00:00:00 [place] [facility] pox) [facility] DTAP 2005-06-21 Completed [facility] 00:00:00 [facility] MMR 2005-06-21 Completed [facility] 00:00:00 [facility] Polio (IPV/OPV) 2005-06-21 Completed [facility] 00:00:00 [facility] Varicella 2005-06-21 Completed [facility] (varivax)(chicken 00:00:00 [place] [facility] pox) [facility] DTAP 2005-06-21 Completed [facility] 00:00:00 [facility] MMR 2005-06-21 Completed [facility] 00:00:00 [facility] Polio (IPV/OPV) 2005-06-21 Completed [facility] 00:00:00 [facility] Varicella 2005-06-21 Completed [facility] (varivax)(chicken 00:00:00 [place] [facility] pox) [facility] DTAP 2005-06-21 Completed [facility] 00:00:00 [facility] MMR 2005-06-21 Completed [facility] 00:00:00 [facility] DTAP 2005-06-21 Completed [facility] 00:00:00 [facility] Polio (IPV/OPV) 2005-06-21 Completed [facility] 00:00:00 [facility] Varicella 2005-06-21 Completed [facility] (varivax)(chicken 00:00:00 [place] [facility] pox) [facility] DTAP 2005-06-21 Completed [facility] 00:00:00 [facility] MMR 2005-06-21 Completed [facility] 00:00:00 [facility] Polio (IPV/OPV) 2005-06-21 Completed [facility] 00:00:00 [facility] Varicella 2005-06-21 Completed [facility] (varivax)(chicken 00:00:00 [place] [facility] pox[facility] MMR 2005-06-21 Completed [facility] 00:00:00 [facility] Polio (IPV/OPV) 2005-06-21 Completed [facility] 00:00:00 [facility] Varicella 2005-06-21 Completed [facility] (varivax)(chicken 00:00:00 [place] [facility] pox) [facility] DTAP 2005-06-21 Completed [facility] 00:00:00 [facility] MMR 2005-06-21 Completed [facility] 00:00:00 [facility] Polio (IPV/OPV) 2005-06-21 Completed [facility] 00:00:00 [facility] Varicella 2005-06-21 Completed [facility] (varivax)(chicken 00:00:00 [place] [facility] pox) [facility] DTAP 2005-06-21 Completed [facility] 00:00:00 [facility] MMR 2005-06-21 Completed [facility] 00:00:00 [facility] Polio (IPV/OPV) 2005-06-21 Completed [facility] 00:00:00 [facility] Varicella 2005-06-21 Completed [facility] (varivax)(chicken 00:00:00 [place] [facility] pox) [facility] DTAP 2005-06-21 Completed [facility] 00:00:00 [facility] MMR 2005-06-21 Completed [facility] of 00:00:00 [facility] Polio (IPV/OPV) 2005-06-21 Completed [facility] 00:00:00 [facility] Varicella 2005-06-21 Completed [facility] (varivax)(chicken 00:00:00 [place] [facility] pox) [facility] DTAP 2005-06-21 Completed [facility] 00:00:00 [facility] MMR 2005-06-21 Completed [facility] 00:00:00 [facility] Polio (IPV/OPV) 2005-06-21 Completed [facility] 00:00:00 [facility] Varicella 2005-06-21 Completed [facility] (varivax)(chicken 00:00:00 [place] [facility] pox) [facility] DTAP 2005-06-21 Completed [facility] 00:00:00 [facility] MMR 2005-06-21 Completed [facility] 00:00:00 [facility] Polio (IPV/OPV) 2005-06-21 Completed [facility] 00:00:00 [facility] Varicella 2005-06-21 Completed [facility] (varivax)(chicken 00:00:00 [place] [facility] pox) [facility] DTAP 2005-06-21 Completed [facility] 00:00:00 [facility] MMR 2005-06-21 Completed [facility] of 00:00:00 [facility] Polio (IPV/OPV) 2005-06-21 Completed [facility] 00:00:00 [facility] Varicella 2005-06-21 Completed [facility] (varivax)(chicken 00:00:00 [place] [facility] pox) [facility] DTAP 2005-06-21 Completed [facility] 00:00:00 [facility] MMR 2005-06-21 Completed [facility] 00:00:00 [facility] Polio (IPV/OPV) 2005-06-21 Completed [facility] 00:00:00 [facility] Varicella 2005-06-21 Completed [facility] (varivax)(chicken 00:00:00 [place] [facility] pox) [facility] DTAP 2005-06-21 Completed [facility] 00:00:00 [facility] MMR 2005-06-21 Completed [facility] of 00:00:00 [facility] Polio (IPV/OPV) 2005-06-21 Completed [facility] 00:00:00 [facility] Varicella 2005-06-21 Completed [facility] (varivax)(chicken 00:00:00 [place] [facility] pox) [facility] DTAP 2005-06-21 Completed [facility] 00:00:00 [facility] MMR 2005-06-21 Completed [facility] of 00:00:00 [facility] Polio (IPV/OPV) 2005-06-21 Completed [facility] 00:00:00 [facility] Varicella 2005-06-21 Completed [facility] (varivax)(chicken 00:00:00 [place] [facility] pox) [facility] DTAP 2005-06-21 Completed [facility] 00:00:00 [facility] MMR 2005-06-21 Completed [facility] of 00:00:00 [facility] Polio (IPV/OPV) 2005-06-21 Completed [facility] 00:00:00 [facility] Varicella 2005-06-21 Completed [facility] (varivax)(chicken 00:00:00 [place] [facility] pox) [facility] DTAP 2005-06-21 Completed [facility] 00:00:00 [facility] MMR 2005-06-21 Completed [facility] of 00:00:00 [facility] Polio (IPV/OPV) 2005-06-21 Completed [facility] 00:00:00 [facility] Varicella 2005-06-21 Completed [facility] (varivax)(chicken 00:00:00 [place] [facility] pox) [facility] DTAP 2005-06-21 Completed [facility] 00:00:00 [facility] MMR 2005-06-21 Completed [facility] 00:00:00 [facility] Polio (IPV/OPV) 2005-06-21 Completed [facility] 00:00:00 [facility] Varicella 2005-06-21 Completed [facility] (varivax)(chicken 00:00:00 [place] [facility] pox) [facility] DTAP 2005-06-21 Completed [facility] 00:00:00 [facility] MMR 2005-06-21 Completed [facility] 00:00:00 [facility] Polio (IPV/OPV) 2005-06-21 Completed [facility] 00:00:00 [facility] Varicella 2005-06-21 Completed [facility] (varivax)(chicken 00:00:00 [place] [facility] pox) [facility] DTAP 2005-06-21 Completed [facility] 00:00:00 [facility] MMR 2005-06-21 Completed [facility] of 00:00:00 [facility] Polio (IPV/OPV) 2005-06-21 Completed [facility] 00:00:00 [facility] Varicella 2005-06-21 Completed [facility] (varivax)(chicken 00:00:00 [place] [facility] pox) [facility] DTAP 2005-06-21 Completed [facility] 00:00:00 [facility] MMR 2005-06-21 Completed [facility] of 00:00:00 [facility] Polio (IPV/OPV) 2005-06-21 Completed [facility] 00:00:00 [facility] Varicella 2005-06-21 Completed [facility] (varivax)(chicken 00:00:00 [place] [facility] pox) [facility] DTAP 2005-06-21 Completed [facility] 00:00:00 [facility] MMR 2005-06-21 Completed [facility] of 00:00:00 [facility] Polio (IPV/OPV) 2005-06-21 Completed [facility] 00:00:00 [facility] Varicella 2005-06-21 Completed [facility] (varivax)(chicken 00:00:00 [place] [facility] pox) [facility] DTAP 2005-06-21 Completed [facility] 00:00:00 [facility] DTAP 2005-06-21 Completed [facility] 00:00:00 [facility] MMR 2005-06-21 Completed [facility] of 00:00:00 [facility] Polio (IPV/OPV) 2005-06-21 Completed [facility] 00:00:00 [facility] Varicella 2005-06-21 Completed [facility] (varivax)(chicken 00:00:00 [place] [facility] pox) [facility] DTAP 2005-06-21 Completed [facility] 00:00:00 [facility] MMR 2005-06-21 Completed [facility] 00:00:00 [facility] Polio (IPV/OPV) 2005-06-21 Completed [facility] 00:00:00 [facility] Varicella 2005-06-21 Completed [facility] (varivax)(chicken 00:00:00 [place] [facility] pox) [facility] DTAP 2005-06-21 Completed [facility] 00:00:00 [facility] MMR 2005-06-21 Completed [facility] 00:00:00 [facility] Polio (IPV/OPV) 2005-06-21 Completed [facility] 00:00:00 [facility] Varicella 2005-06-21 Completed [facility] (varivax)(chicken 00:00:00 [place] [facility] pox) [facility] DTAP 2005-06-21 Completed [facility] 00:00:00 [facility] MMR 2005-06-21 Completed [facility] 00:00:00 [facility] Polio (IPV/OPV) 2005-06-21 Completed [facility] 00:00:00 [facility] Varicella 2005-06-21 Completed [facility] (varivax)(chicken 00:00:00 [place] [facility] pox) [facility] HEPATITIS A 2005-03-04 Completed [facility] 00:00:00 [facility] HEPATITIS A 2005-03-04 Completed [facility] 00:00:00 [facility] HEPATITIS A 2005-03-04 Completed [facility] 00:00:00 [facility] HEPATITIS A 2005-03-04 Completed [facility] 00:00:00 [facility] HEPATITIS A 2005-03-04 Completed [facility] 00:00:00 [facility] HEPATITIS A 2005-03-04 Completed [facility] 00:00:00 [facility] HEPATITIS A 2005-03-04 Completed [facility] 00:00:00 [facility] HEPATITIS A 2005-03-04 Completed [facility] 00:00:00 [facility] HEPATITIS A 2005-03-04 Completed [facility] 00:00:00 [facility] HEPATITIS A 2005-03-04 Completed [facility] 00:00:00 [facility] HEPATITIS A 2005-03-04 Completed [facility] 00:00:00 [facility] HEPATITIS A 2005-03-04 Completed [facility] 00:00:00 [facility] HEPATITIS A 2005-03-04 Completed [facility] 00:00:00 [facility] HEPATITIS A 2005-03-04 Completed [facility] 00:00:00 [facility] HEPATITIS A 2005-03-04 Completed [facility] 00:00:00 [facility] HEPATITIS A 2005-03-04 Completed [facility] 00:00:00 [facility] HEPATITIS A 2005-03-04 Completed [facility] 00:00:00 [facility] HEPATITIS A 2005-03-04 Completed [facility] 00:00:00 [facility] HEPATITIS A 2005-03-04 Completed [facility] 00:00:00 [facility] HEPATITIS A 2005-03-04 Completed [facility] 00:00:00 [facility] HEPATITIS A 2005-03-04 Completed [facility] 00:00:00 [facility] HEPATITIS A 2005-03-04 Completed [facility] 00:00:00 [facility] HEPATITIS A 2005-03-04 Completed [facility] 00:00:00 [facility] HEPATITIS A 2005-03-04 Completed [facility] 00:00:00 [facility] HEPATITIS A 2005-03-04 Completed [facility] 00:00:00 [facility] HEPATITIS A 2005-03-04 Completed [facility] 00:00:00 [facility] HEPATITIS A 2005-03-04 Completed [facility] 00:00:00 [facility] HEPATITIS A 2005-03-04 Completed [facility] 00:00:00 [facility] HEPATITIS A 2005-03-04 Completed [facility] 00:00:00 [facility] HEPATITIS A 2005-03-04 Completed [facility] 00:00:00 [facility] HEPATITIS A 2005-03-04 Completed [facility] 00:00:00 [facility] HEPATITIS A 2005-03-04 Completed [facility] 00:00:00 [facility] HEPATITIS A 2005-03-04 Completed [facility] 00:00:00 [facility] HEPATITIS A 2005-03-04 Completed [facility] 00:00:00 [facility] HEPATITIS A 2005-03-04 Completed [facility] 00:00:00 [facility] HEPATITIS A 2005-03-04 Completed [facility] 00:00:00 [facility] HEPATITIS A 2005-03-04 Completed [facility] 00:00:00 [facility] HEPATITIS A 2005-03-04 Completed [facility] 00:00:00 [facility] HEPATITIS A 2005-03-04 Completed [facility] 00:00:00 [facility] HEPATITIS A 2005-03-04 Completed [facility] 00:00:00 [facility] HEPATITIS A 2005-03-04 Completed [facility] 00:00:00 [facility] HEPATITIS A 2005-03-04 Completed [facility] 00:00:00 [facility] HEPATITIS A 2005-03-04 Completed [facility] 00:00:00 [facility] HEPATITIS A 2005-03-04 Completed [facility] 00:00:00 [facility] HEPATITIS A 2005-03-04 Completed [facility] 00:00:00 [facility] HEPATITIS A 2005-03-04 Completed [facility] 00:00:00 [facility] HEPATITIS A 2005-03-04 Completed [facility] 00:00:00 [facility] HEPATITIS A 2005-03-04 Completed [facility] 00:00:00 [facility] HEPATITIS A 2005-03-04 Completed [facility] 00:00:00 [facility] HEPATITIS A 2005-03-04 Completed [facility] of 00:00:00 [facility] DTAP 2002-05-29 Completed [facility] of 00:00:00 [facility] HIB 4 Dose Schedule 2002-05-29 Completed Unive rsity of 00:00:00 [facility] Pneumococcal 7 2002-05-29 Completed University of Conjugate, PCV7 00:00:00 [place] [facility] (Prevnar7) [facility] DTAP 2002-05-29 Completed [facility] of 00:00:00 [facility] HIB 4 Dose Schedule 2002-05-29 Completed Unive rsity of 00:00:00 [facility] Pneumococcal 7 2002-05-29 Completed [facility] of Conjugate, PCV7 00:00:00 [place] [facility] (Prevnar7) [facility] Pneumococcal 7 2002-05-29 Completed [facility] Conjugate, PCV7 00:00:00 [place] [facility] (Prevnar7) [facility] DTAP 2002-05-29 Completed [facility] 00:00:00 [facility] HIB 4 Dose Schedule 2002-05-29 Completed Unive rsity of 00:00:00 [facility] Pneumococcal 7 2002-05-29 Completed [facility] of Conjugate, PCV7 00:00:00 [place] [facility] (Prevnar7) [facility] DTAP 2002-05-29 Completed [facility] of 00:00:00 [facility] HIB 4 Dose Schedule 2002-05-29 Completed Unive rsity of 00:00:00 [facility] Pneumococcal 7 2002-05-29 Completed [facility] of Conjugate, PCV7 00:00:00 [place] [facility] (Prevnar7) [facility] DTAP 2002-05-29 Completed [facility] of 00:00:00 [facility] HIB 4 Dose Schedule 2002-05-29 Completed Unive rsity of 00:00:00 [facility] Pneumococcal 7 2002-05-29 Completed [facility] of Conjugate, PCV7 00:00:00 [place] [facility] (Prevnar7) [facility] DTAP 2002-05-29 Completed [facility] of 00:00:00 [facility] HIB 4 Dose Schedule 2002-05-29 Completed Unive rsity of 00:00:00 [facility] Pneumococcal 7 2002-05-29 Completed [facility] of Conjugate, PCV7 00:00:00 [place] [facility] (Prevnar7) [facility] DTAP 2002-05-29 Completed [facility] of 00:00:00 [facility] HIB 4 Dose Schedule 2002-05-29 Completed Unive rsity of 00:00:00 [facility] DTAP 2002-05-29 Completed [facility] of 00:00:00 [facility] Pneumococcal 7 2002-05-29 Completed [facility] of Conjugate, PCV7 00:00:00 [place] [facility] (Prevnar7) [facility] DTAP 2002-05-29 Completed [facility] of 00:00:00 [facility] HIB 4 Dose Schedule 2002-05-29 Completed Unive rsity of 00:00:00 [facility] Pneumococcal 7 2002-05-29 Completed [facility] of Conjugate, PCV7 00:00:00 [place] [facility] (Prevnar7) [facility] HIB 4 Dose Schedule 2002-05-29 Completed Unive rsity of 00:00:00 [facility] DTAP 2002-05-29 Completed [facility] of 00:00:00 [facility] HIB 4 Dose Schedule 2002-05-29 Completed Unive rsity of 00:00:00 [facility] Pneumococcal 7 2002-05-29 Completed [facility] of Conjugate, PCV7 00:00:00 [place] [facility] (Prevnar7) [facility] DTAP 2002-05-29 Completed [facility] of 00:00:00 [facility] HIB 4 Dose Schedule 2002-05-29 Completed Unive rsity of 00:00:00 [facility] Pneumococcal 7 2002-05-29 Completed [facility] of Conjugate, PCV7 00:00:00 [place] [facility] (Prevnar7) Branch DTAP 2002-05-29 Completed [facility] of 00:00:00 [facility] HIB 4 Dose Schedule 2002-05-29 Completed Unive rsity of 00:00:00 [facility] Pneumococcal 7 2002-05-29 Completed [facility] of Conjugate, PCV7 00:00:00 [place] [facility] (Prevnar7) [facility] DTAP 2002-05-29 Completed [facility] of 00:00:00 [facility] HIB 4 Dose Schedule 2002-05-29 Completed Unive rsity of 00:00:00 [facility] Pneumococcal 7 2002-05-29 Completed [facility] of Conjugate, PCV7 00:00:00 [place] [facility] (Prevnar7) Branch DTAP 2002-05-29 Completed [facility] of 00:00:00 [facility] Pneumococcal 7 2002-05-29 Completed [facility] of Conjugate, PCV7 00:00:00 [place] [facility] (Prevnar7) [facility] HIB 4 Dose Schedule 2002-05-29 Completed Unive rsity of 00:00:00 [facility] Pneumococcal 7 2002-05-29 Completed [facility] of Conjugate, PCV7 00:00:00 [place] [facility] (Prevnar7) [facility] DTAP 2002-05-29 Completed [facility] of 00:00:00 [facility] HIB 4 Dose Schedule 2002-05-29 Completed Unive rsity of 00:00:00 [facility] Pneumococcal 7 2002-05-29 Completed [facility] of Conjugate, PCV7 00:00:00 [place] [facility] (Prevnar7) [facility] DTAP 2002-05-29 Completed [facility] 00:00:00 [facility] HIB 4 Dose Schedule 2002-05-29 Completed Unive rsity of 00:00:00 [facility] Pneumococcal 7 2002-05-29 Completed [facility] of Conjugate, PCV7 00:00:00 [place] [facility] (Prevnar7) Branch DTAP 2002-05-29 Completed [facility] of 00:00:00 [facility] HIB 4 Dose Schedule 2002-05-29 Completed Unive rsity of 00:00:00 [facility] DTAP 2002-05-29 Completed [facility] of 00:00:00 [facility] Pneumococcal 7 2002-05-29 Completed [facility] of Conjugate, PCV7 00:00:00 [place] [facility] (Prevnar7) [facility] DTAP 2002-05-29 Completed [facility] of 00:00:00 [facility] HIB 4 Dose Schedule 2002-05-29 Completed Unive rsity of 00:00:00 [facility] HIB 4 Dose Schedule 2002-05-29 Completed Unive rsity of 00:00:00 [facility] Pneumococcal 7 2002-05-29 Completed [facility] of Conjugate, PCV7 00:00:00 [place] [facility] (Prevnar7) [facility] DTAP 2002-05-29 Completed [facility] of 00:00:00 [facility] HIB 4 Dose Schedule 2002-05-29 Completed Unive rsity of 00:00:00 [facility] Pneumococcal 7 2002-05-29 Completed [facility] of Conjugate, PCV7 00:00:00 [place] [facility] (Prevnar7) [facility] DTAP 2002-05-29 Completed [facility] of 00:00:00 [facility] HIB 4 Dose Schedule 2002-05-29 Completed Unive rsity of 00:00:00 [facility] Pneumococcal 7 2002-05-29 Completed [facility] of Conjugate, PCV7 00:00:00 [place] [facility] (Prevnar7) [facility] DTAP 2002-05-29 Completed [facility] of 00:00:00 [facility] HIB 4 Dose Schedule 2002-05-29 Completed Unive rsity of 00:00:00 [facility] Pneumococcal 7 2002-05-29 Completed [facility] of Conjugate, PCV7 00:00:00 [place] [facility] (Prevnar7) [facility] DTAP 2002-05-29 Completed [facility] of 00:00:00 [facility] HIB 4 Dose Schedule 2002-05-29 Completed Unive rsity of 00:00:00 [facility] Pneumococcal 7 2002-05-29 Completed [facility] of Conjugate, PCV7 00:00:00 [place] [facility] (Prevnar7) [facility] Pneumococcal 7 2002-05-29 Completed [facility] of Conjugate, PCV7 00:00:00 [place] [facility] (Prevnar7) [facility] DTAP 2002-05-29 Completed [facility] of 00:00:00 [facility] HIB 4 Dose Schedule 2002-05-29 Completed Unive rsity of 00:00:00 [facility] Pneumococcal 7 2002-05-29 Completed [facility] of Conjugate, PCV7 00:00:00 [place] [facility] (Prevnar7) [facility] DTAP 2002-05-29 Completed [facility] of 00:00:00 [facility] HIB 4 Dose Schedule 2002-05-29 Completed Unive rsity of 00:00:00 [facility] Pneumococcal 7 2002-05-29 Completed [facility] of Conjugate, PCV7 00:00:00 [place] [facility] (Prevnar7) [facility] DTAP 2002-05-29 Completed [facility] of 00:00:00 [facility] HIB 4 Dose Schedule 2002-05-29 Completed Unive rsity of 00:00:00 [facility] Pneumococcal 7 2002-05-29 Completed [facility] of Conjugate, PCV7 00:00:00 [place] [facility] (Prevnar7) Branch DTAP 2002-05-29 Completed [facility] of 00:00:00 [facility] HIB 4 Dose Schedule 2002-05-29 Completed Unive rsity of 00:00:00 [facility] DTAP 2002-05-29 Completed [facility] of 00:00:00 [facility] Pneumococcal 7 2002-05-29 Completed [facility] of Conjugate, PCV7 00:00:00 [place] [facility] (Prevnar7) [facility] DTAP 2002-05-29 Completed [facility] of 00:00:00 [facility] HIB 4 Dose Schedule 2002-05-29 Completed Unive rsity of 00:00:00 [facility] HIB 4 Dose Schedule 2002-05-29 Completed Unive rsity of 00:00:00 [facility] Pneumococcal 7 2002-05-29 Completed [facility] of Conjugate, PCV7 00:00:00 [place] [facility] (Prevnar7) [facility] Pneumococcal 7 2002-05-29 Completed [facility] of Conjugate, PCV7 00:00:00 [place] [facility] (Prevnar7) [facility] DTAP 2002-05-29 Completed [facility] of 00:00:00 [facility] HIB 4 Dose Schedule 2002-05-29 Completed Unive rsity of 00:00:00 [facility] Pneumococcal 7 2002-05-29 Completed [facility] of Conjugate, PCV7 00:00:00 [place] [facility] (Prevnar7) Branch DTAP 2002-05-29 Completed [facility] of 00:00:00 [facility] HIB 4 Dose Schedule 2002-05-29 Completed Unive rsity of 00:00:00 [facility] Pneumococcal 7 2002-05-29 Completed [facility] of Conjugate, PCV7 00:00:00 [place] [facility] (Prevnar7) Branch DTAP 2002-05-29 Completed [facility] of 00:00:00 [facility] HIB 4 Dose Schedule 2002-05-29 Completed Unive rsity of 00:00:00 [facility] Pneumococcal 7 2002-05-29 Completed [facility] of Conjugate, PCV7 00:00:00 [place] [facility] (Prevnar7) Branch DTAP 2002-05-29 Completed [facility] of 00:00:00 [facility] HIB 4 Dose Schedule 2002-05-29 Completed Unive rsity of 00:00:00 [facility] Pneumococcal 7 2002-05-29 Completed [facility] of Conjugate, PCV7 00:00:00 [place] [facility] (Prevnar7) Branch DTAP 2002-05-29 Completed [facility] of 00:00:00 [facility] HIB 4 Dose Schedule 2002-05-29 Completed Unive rsity of 00:00:00 [facility] Pneumococcal 7 2002-05-29 Completed [facility] of Conjugate, PCV7 00:00:00 [place] [facility] (Prevnar7) Branch DTAP 2002-05-29 Completed [facility] of 00:00:00 [facility] HIB 4 Dose Schedule 2002-05-29 Completed [facility] 00:00:00 [facility] Pneumococcal 7 2002-05-29 Completed [facility] Conjugate, PCV7 00:00:00 [facility] (Pre[facility] DTAP 2002-05-29 Completed [facility] 00:00:00 [facility] HIB 4 Dose Schedule 2002-05-29 Completed [facility] 00:00:00 [facility] Pneumococcal 7 2002-05-29 Completed [facility] Conjugate, PCV7 00:00:00 [facility] (Prevnar7) [facility] DTAP 2002-05-29 Completed [facility] 00:00:00 [facility] HIB 4 Dose Schedule 2002-05-29 Completed [facility] 00:00:00 [facility] Pneumococcal 7 2002-05-29 Completed [facility] Conjugate, PCV7 00:00:00 [facility] (Pre[facility]ar7) [facility] DTAP 2002-05-29 Completed [facility] 00:00:00 [facility] HIB 4 Dose Schedule 2002-05-29 Completed [facility] 00:00:00 [facility] Pneumococcal 7 2002-05-29 Completed [facility] Conjugate, PCV7 00:00:00 [facility] (Prevnar7) [facility] DTAP 2002-05-29 Completed [facility] 00:00:00 [facility] HIB 4 Dose Schedule 2002-05-29 Completed [facility] 00:00:00 [facility] Pneumococcal 7 2002-05-29 Completed [facility] Conjugate, PCV7 00:00:00 [facility] (Pre[facility]ar[facility] DTAP 2002-05-29 Completed [facility] 00:00:00 [facility] HIB 4 Dose Schedule 2002-05-29 Completed [facility] 00:00:00 [facility] Pneumococcal 7 2002-05-29 Completed [facility] Conjugate, PCV7 00:00:00 [facility] (Prevnar7) [facility] DTAP 2002-05-29 Completed [facility] 00:00:00 [facility] HIB 4 Dose Schedule 2002-05-29 Completed [facility] 00:00:00 [facility] Pneumococcal 7 2002-05-29 Completed [facility] Conjugate, PCV7 00:00:00 [facility] (Prevnar7) [facility] DTAP 2002-05-29 Completed [facility] 00:00:00 [facility] HIB 4 Dose Schedule 2002-05-29 Completed [facility] 00:00:00 [facility] Pneumococcal 7 2002-05-29 Completed [facility] Conjugate, PCV7 00:00:00 [facility] (Prevnar7) [facility] DTAP 2002-05-29 Completed [facility] 00:00:00 [facility] HIB 4 Dose Schedule 2002-05-29 Completed [facility] 00:00:00 [facility] Pneumococcal 7 2002-05-29 Completed [facility] Conjugate, PCV7 00:00:00 [facility] (Prevnar7) [facility] DTAP 2002-05-29 Completed [facility] 00:00:00 [facility] HIB 4 Dose Schedule 2002-05-29 Completed [facility] 00:00:00 [facility] Pneumococcal 7 2002-05-29 Completed [facility] Conjugate, PCV7 00:00:00 [facility] (Prevnar7) [facility] DTAP 2002-05-29 Completed [facility] 00:00:00 [facility] HIB 4 Dose Schedule 2002-05-29 Completed [facility] 00:00:00 [facility] Pneumococcal 7 2002-05-29 Completed [facility] Conjugate, PCV7 00:00:00 [facility] (Prevnar7) [facility] DTAP 2002-05-29 Completed [facility] 00:00:00 [facility] DTAP 2002-05-29 Completed [facility] 00:00:00 [facility] HIB 4 Dose Schedule 2002-05-29 Completed [facility] 00:00:00 [facility] Pneumococcal 7 2002-05-29 Completed [facility] Conjugate, PCV7 00:00:00 [place] [facility] (Prevnar7) [facility] DTAP 2002-05-29 Completed [facility] 00:00:00 [facility] HIB 4 Dose Schedule 2002-05-29 Completed [facility] 00:00:00 [facility] HIB 4 Dose Schedule 2002-05-29 Completed [facility] 00:00:00 [facility] Pneumococcal 7 2002-05-29 Completed [facility] Conjugate, PCV7 00:00:00 [facility] (Prevnar[facility] DTAP 2002-05-29 Completed [facility] 00:00:00 [facility] HIB 4 Dose Schedule 2002-05-29 Completed [facility] 00:00:00 [facility] Pneumococcal 7 2002-05-29 Completed [facility] Conjugate, PCV7 00:00:00 [facility] (Prevnar7) [facility] DTAP 2002-05-29 Completed [facility] 00:00:00 [facility] HIB 4 Dose Schedule 2002-05-29 Completed [facility] 00:00:00 [facility] Pneumococcal 7 2002-05-29 Completed [facility] Conjugate, PCV7 00:00:00 [facility] (Prevnar7) [facility] DTAP 2002-01-19 Completed [facility] 00:00:00 [facility] HIB 4 Dose Schedule 2002-01-19 Completed [facility] 00:00:00 [facility] MMR 2002-01-19 Completed [facility] of 00:00:00 [facility] Polio (IPV/OPV) 2002-01-19 Completed [facility] 00:00:00 [facility] Polio (IPV/OPV) 2002-01-19 Completed [facility] 00:00:00 [facility] DTAP 2002-01-19 Completed [facility] 00:00:00 [facility] HIB 4 Dose Schedule 2002-01-19 Completed [facility] 00:00:00 [facility] [place] MMR 2002-01-19 Completed [facility] 00:00:00 [facility] Polio (IPV/OPV) 2002-01-19 Completed [facility] 00:00:00 [facility] DTAP 2002-01-19 Completed [facility] 00:00:00 [facility] HIB 4 Dose Schedule 2002-01-19 Completed [facility] 00:00:00 [facility] MMR 2002-01-19 Completed [facility] 00:00:00 [facility] Polio (IPV/OPV) 2002-01-19 Completed [facility] 00:00:00 [facility] DTAP 2002-01-19 Completed [facility] 00:00:00 [facility] HIB 4 Dose Schedule 2002-01-19 Completed [facility] 00:00:00 [facility] MMR 2002-01-19 Completed [facility] 00:00:00 [facility] Polio (IPV/OPV) 2002-01-19 Completed [facility] 00:00:00 [facility] DTAP 2002-01-19 Completed [facility] 00:00:00 [facility] HIB 4 Dose Schedule 2002-01-19 Completed [facility] 00:00:00 [facility] MMR 2002-01-19 Completed [facility] 00:00:00 [facility] Polio (IPV/OPV) 2002-01-19 Completed [facility] 00:00:00 [facility] DTAP 2002-01-19 Completed [facility] 00:00:00 [facility] HIB 4 Dose Schedule 2002-01-19 Completed [facility] 00:00:00 [facility] MMR 2002-01-19 Completed [facility] 00:00:00 [facility] Polio (IPV/OPV) 2002-01-19 Completed [facility] 00:00:00 [facility] DTAP 2002-01-19 Completed [facility] 00:00:00 [facility] HIB 4 Dose Schedule 2002-01-19 Completed [facility] 00:00:00 [facility] DTAP 2002-01-19 Completed [facility] 00:00:00 [facility] MMR 2002-01-19 Completed [facility] 00:00:00 [facility] Polio (IPV/OPV) 2002-01-19 Completed [facility] 00:00:00 [facility] DTAP 2002-01-19 Completed [facility] 00:00:00 [facility] HIB 4 Dose Schedule 2002-01-19 Completed [facility] 00:00:00 [facility] MMR 2002-01-19 Completed [facility] 00:00:00 [facility] Polio (IPV/OPV) 2002-01-19 Completed [facility] 00:00:00 [facility] HIB 4 Dose Schedule 2002-01-19 Completed [facility] 00:00:00 [facility] DTAP 2002-01-19 Completed [facility] 00:00:00 [facility] HIB 4 Dose Schedule 2002-01-19 Completed [facility] 00:00:00 [facility] MMR 2002-01-19 Completed [facility] 00:00:00 [facility] Polio (IPV/OPV) 2002-01-19 Completed [facility] 00:00:00 [facility] DTAP 2002-01-19 Completed [facility] 00:00:00 [facility] HIB 4 Dose Schedule 2002-01-19 Completed [facility] 00:00:00 [facility] MMR 2002-01-19 Completed [facility] 00:00:00 [facility] Polio (IPV/OPV) 2002-01-19 Completed [facility] 00:00:00 [facility] DTAP 2002-01-19 Completed [facility] 00:00:00 [facility] MMR 2002-01-19 Completed [facility] 00:00:00 [facility] HIB 4 Dose Schedule 2002-01-19 Completed [facility] 00:00:00 [facility] MMR 2002-01-19 Completed [facility] 00:00:00 [facility] Polio (IPV/OPV) 2002-01-19 Completed [facility] 00:00:00 [facility] DTAP 2002-01-19 Completed [facility] 00:00:00 [facility] Polio (IPV/OPV) 2002-01-19 Completed [facility] 00:00:00 [facility] HIB 4 Dose Schedule 2002-01-19 Completed [facility] 00:00:00 [facility] MMR 2002-01-19 Completed [facility] 00:00:00 [facility] Polio (IPV/OPV) 2002-01-19 Completed [facility] 00:00:00 [facility] DTAP 2002-01-19 Completed [facility] 00:00:00 [facility] HIB 4 Dose Schedule 2002-01-19 Completed [facility] 00:00:00 [facility] MMR 2002-01-19 Completed [facility] 00:00:00 [facility] Polio (IPV/OPV) 2002-01-19 Completed [facility] 00:00:00 [facility] DTAP 2002-01-19 Completed [facility] 00:00:00 [facility] HIB 4 Dose Schedule 2002-01-19 Completed [facility] 00:00:00 [facility] MMR 2002-01-19 Completed [facility] 00:00:00 [facility] Polio (IPV/OPV) 2002-01-19 Completed [facility] 00:00:00 [facility] DTAP 2002-01-19 Completed [facility] 00:00:00 [facility] HIB 4 Dose Schedule 2002-01-19 Completed [facility] 00:00:00 [facility] MMR 2002-01-19 Completed [facility] 00:00:00 [facility] Polio (IPV/OPV) 2002-01-19 Completed [facility] 00:00:00 [facility] DTAP 2002-01-19 Completed [facility] 00:00:00 [facility] DTAP 2002-01-19 Completed [facility] 00:00:00 [facility] HIB 4 Dose Schedule 2002-01-19 Completed [facility] 00:00:00 [facility] MMR 2002-01-19 Completed [facility] 00:00:00 [facility] Polio (IPV/OPV) 2002-01-19 Completed [facility] 00:00:00 [facility] DTAP 2002-01-19 Completed [facility] 00:00:00 [facility] HIB 4 Dose Schedule 2002-01-19 Completed [facility] 00:00:00 [facility] HIB 4 Dose Schedule 2002-01-19 Completed [facility] 00:00:00 [facility] MMR 2002-01-19 Completed [facility] 00:00:00 [facility] Polio (IPV/OPV) 2002-01-19 Completed [facility] 00:00:00 [facility] DTAP 2002-01-19 Completed [facility] 00:00:00 [facility] HIB 4 Dose Schedule 2002-01-19 Completed [facility] 00:00:00 [facility] MMR 2002-01-19 Completed [facility] 00:00:00 [facility] Polio (IPV/OPV) 2002-01-19 Completed [facility] 00:00:00 [facility] DTAP 2002-01-19 Completed [facility] 00:00:00 [facility] HIB 4 Dose Schedule 2002-01-19 Completed [facility] 00:00:00 [facility] MMR 2002-01-19 Completed [facility] 00:00:00 [facility] Polio (IPV/OPV) 2002-01-19 Completed [facility] 00:00:00 [facility] MMR 2002-01-19 Completed [facility] 00:00:00 [facility] DTAP 2002-01-19 Completed [facility] 00:00:00 [facility] HIB 4 Dose Schedule 2002-01-19 Completed [facility] 00:00:00 [facility] MMR 2002-01-19 Completed [facility] 00:00:00 [facility] Polio (IPV/OPV) 2002-01-19 Completed [facility] 00:00:00 [facility] Polio (IPV/OPV) 2002-01-19 Completed [facility] 00:00:00 [facility] DTAP 2002-01-19 Completed [facility] 00:00:00 [facility] HIB 4 Dose Schedule 2002-01-19 Completed [facility] 00:00:00 [facility] MMR 2002-01-19 Completed [facility] 00:00:00 [facility] Polio (IPV/OPV) 2002-01-19 Completed [facility] 00:00:00 [facility] DTAP 2002-01-19 Completed [facility] 00:00:00 [facility] HIB 4 Dose Schedule 2002-01-19 Completed [facility] 00:00:00 [facility] MMR 2002-01-19 Completed [facility] 00:00:00 [facility] Polio (IPV/OPV) 2002-01-19 Completed [facility] 00:00:00 [facility] DTAP 2002-01-19 Completed [facility] 00:00:00 [facility] HIB 4 Dose Schedule 2002-01-19 Completed [facility] 00:00:00 [facility] MMR 2002-01-19 Completed [facility] 00:00:00 [facility] Polio (IPV/OPV) 2002-01-19 Completed [facility] 00:00:00 [facility] DTAP 2002-01-19 Completed [facility] 00:00:00 [facility] HIB 4 Dose Schedule 2002-01-19 Completed [facility] 00:00:00 [facility] MMR 2002-01-19 Completed [facility] 00:00:00 [facility] Polio (IPV/OPV) 2002-01-19 Completed [facility] 00:00:00 [facility] DTAP 2002-01-19 Completed [facility] 00:00:00 [facility] DTAP 2002-01-19 Completed [facility] 00:00:00 [facility] HIB 4 Dose Schedule 2002-01-19 Completed [facility] 00:00:00 [facility] MMR 2002-01-19 Completed [facility] 00:00:00 [facility] Polio (IPV/OPV) 2002-01-19 Completed [facility] 00:00:00 [facility] DTAP 2002-01-19 Completed [facility] 00:00:00 [facility] HIB 4 Dose Schedule 2002-01-19 Completed [facility] 00:00:00 [facility] HIB 4 Dose Schedule 2002-01-19 Completed [facility] 00:00:00 [facility] MMR 2002-01-19 Completed [facility] 00:00:00 [facility] Polio (IPV/OPV) 2002-01-19 Completed [facility] 00:00:00 [facility] MMR 2002-01-19 Completed [facility] 00:00:00 [facility] Polio (IPV/OPV) 2002-01-19 Completed [facility] 00:00:00 [facility] DTAP 2002-01-19 Completed [facility] 00:00:00 [facility] HIB 4 Dose Schedule 2002-01-19 Completed [facility] 00:00:00 [facility] MMR 2002-01-19 Completed [facility] 00:00:00 [facility] Polio (IPV/OPV) 2002-01-19 Completed [facility] 00:00:00 [facility] DTAP 2002-01-19 Completed [facility] 00:00:00 [facility] HIB 4 Dose Schedule 2002-01-19 Completed [facility] 00:00:00 [facility] MMR 2002-01-19 Completed [facility] 00:00:00 [facility] Polio (IPV/OPV) 2002-01-19 Completed [facility] 00:00:00 [facility] DTAP 2002-01-19 Completed [facility] 00:00:00 [facility] HIB 4 Dose Schedule 2002-01-19 Completed [facility] 00:00:00 [facility] MMR 2002-01-19 Completed [facility] 00:00:00 [facility] Polio (IPV/OPV) 2002-01-19 Completed [facility] 00:00:00 [facility] DTAP 2002-01-19 Completed [facility] 00:00:00 [facility] HIB 4 Dose Schedule 2002-01-19 Completed [facility] 00:00:00 [facility] MMR 2002-01-19 Completed [facility] 00:00:00 [facility] Polio (IPV/OPV) 2002-01-19 Completed [facility] 00:00:00 [facility] DTAP 2002-01-19 Completed [facility] 00:00:00 [facility] HIB 4 Dose Schedule 2002-01-19 Completed [facility] 00:00:00 [facility] MMR 2002-01-19 Completed [facility] 00:00:00 [facility] Polio (IPV/OPV) 2002-01-19 Completed [facility] 00:00:00 [facility] DTAP 2002-01-19 Completed [facility] 00:00:00 [facility] HIB 4 Dose Schedule 2002-01-19 Completed [facility] 00:00:00 [facility] MMR 2002-01-19 Completed [facility] 00:00:00 [facility] Polio (IPV/OPV) 2002-01-19 Completed [facility] 00:00:00 [facility] DTAP 2002-01-19 Completed [facility] 00:00:00 [facility] HIB 4 Dose Schedule 2002-01-19 Completed [facility] 00:00:00 [facility] MMR 2002-01-19 Completed [facility] 00:00:00 [facility] Polio (IPV/OPV) 2002-01-19 Completed [facility] 00:00:00 [facility] DTAP 2002-01-19 Completed [facility] 00:00:00 [facility] HIB 4 Dose Schedule 2002-01-19 Completed [facility] 00:00:00 [facility] MMR 2002-01-19 Completed [facility] 00:00:00 [facility] Polio (IPV/OPV) 2002-01-19 Completed [facility] 00:00:00 [facility] DTAP 2002-01-19 Completed [facility] 00:00:00 [facility] HIB 4 Dose Schedule 2002-01-19 Completed [facility] 00:00:00 [facility] MMR 2002-01-19 Completed [facility] 00:00:00 [facility] Polio (IPV/OPV) 2002-01-19 Completed [facility] 00:00:00 [facility] DTAP 2002-01-19 Completed [facility] 00:00:00 [facility] HIB 4 Dose Schedule 2002-01-19 Completed [facility] 00:00:00 [facility] MMR 2002-01-19 Completed [facility] 00:00:00 [facility] Polio (IPV/OPV) 2002-01-19 Completed [facility] 00:00:00 [facility] DTAP 2002-01-19 Completed [facility] 00:00:00 [facility] HIB 4 Dose Schedule 2002-01-19 Completed [facility] 00:00:00 [facility] MMR 2002-01-19 Completed [facility] 00:00:00 [facility] Polio (IPV/OPV) 2002-01-19 Completed [facility] 00:00:00 [facility] DTAP 2002-01-19 Completed [facility] 00:00:00 [facility] HIB 4 Dose Schedule 2002-01-19 Completed [facility] 00:00:00 [facility] MMR 2002-01-19 Completed [facility] 00:00:00 [facility] Polio (IPV/OPV) 2002-01-19 Completed [facility] 00:00:00 [facility] DTAP 2002-01-19 Completed [facility] 00:00:00 [facility] HIB 4 Dose Schedule 2002-01-19 Completed [facility] 00:00:00 [facility] MMR 2002-01-19 Completed [facility] 00:00:00 [facility] Polio (IPV/OPV) 2002-01-19 Completed [facility] 00:00:00 [facility] DTAP 2002-01-19 Completed [facility] 00:00:00 [facility] HIB 4 Dose Schedule 2002-01-19 Completed [facility] 00:00:00 [facility] MMR 2002-01-19 Completed [facility] 00:00:00 [facility] Polio (IPV/OPV) 2002-01-19 Completed [facility] 00:00:00 [facility] DTAP 2002-01-19 Completed [facility] 00:00:00 [facility] HIB 4 Dose Schedule 2002-01-19 Completed [facility] 00:00:00 [facility] MMR 2002-01-19 Completed [facility] 00:00:00 [facility] Polio (IPV/OPV) 2002-01-19 Completed [facility] 00:00:00 [facility] DTAP 2002-01-19 Completed [facility] 00:00:00 [facility] HIB 4 Dose Schedule 2002-01-19 Completed [facility] 00:00:00 [facility] MMR 2002-01-19 Completed [facility] 00:00:00 [facility] DTAP 2002-01-19 Completed [facility] 00:00:00 [facility] Polio (IPV/OPV) 2002-01-19 Completed [facility] 00:00:00 [facility] DTAP 2002-01-19 Completed [facility] 00:00:00 [facility] HIB 4 Dose Schedule 2002-01-19 Completed [facility] 00:00:00 [facility] MMR 2002-01-19 Completed [facility] 00:00:00 [facility] Polio (IPV/OPV) 2002-01-19 Completed [facility] 00:00:00 [facility] HIB 4 Dose Schedule 2002-01-19 Completed [facility] 00:00:00 [facility] DTAP 2002-01-19 Completed [facility] 00:00:00 [facility] HIB 4 Dose Schedule 2002-01-19 Completed [facility] 00:00:00 [facility] MMR 2002-01-19 Completed [facility] 00:00:00 [facility] Polio (IPV/OPV) 2002-01-19 Completed [facility] 00:00:00 [facility] DTAP 2002-01-19 Completed [facility] 00:00:00 [facility] HIB 4 Dose Schedule 2002-01-19 Completed [facility] 00:00:00 [facility] [place] MMR 2002-01-19 Completed [facility] 00:00:00 [facility] Polio (IPV/OPV) 2002-01-19 Completed [facility] 00:00:00 [facility] DTAP 2002-01-19 Completed [facility] 00:00:00 [facility] HIB 4 Dose Schedule 2002-01-19 Completed [facility] 00:00:00 [facility] MMR 2002-01-19 Completed [facility] 00:00:00 [facility] MMR 2002-01-19 Completed [facility] 00:00:00 [facility] Polio (IPV/OPV) 2002-01-19 Completed [facility] 00:00:00 [facility] DTAP 2001 Completed [facility] 00:00:00 [facility] HIB 4 Dose Schedule 2001 Completed [facility] 00:00:00 [facility] Polio (IPV/OPV) 2001 Completed [facility] 00:00:00 [facility] Hep B, Adol or Pedi 2001 Completed [facility] Dosage 00:00:00 [facility] Polio (IPV/OPV) 2001 Completed [facility] 00:00:00 [facility] DTAP 2001 Completed [facility] 00:00:00 [facility] HIB 4 Dose Schedule 2001 Completed [facility] 00:00:00 [facility] Hep B, Adol or Pedi 2001 Completed [facility] Dosage 00:00:00 [facility] Polio (IPV/OPV) 2001 Completed [facility] 00:00:00 [facility] DTAP 2001 Completed [facility] 00:00:00 [facility] HIB 4 Dose Schedule 2001 Completed [facility] 00:00:00 [facility] Hep B, Adol or Pedi 2001 Completed [facility] Dosage 00:00:00 [facility] Polio (IPV/OPV) 2001 Completed [facility] 00:00:00 [facility] DTAP 2001 Completed [facility] 00:00:00 [facility] HIB 4 Dose Schedule 2001 Completed [facility] 00:00:00 [facility] Hep B, Adol or Pedi 2001 Completed [facility] Dosage 00:00:00 [facility] Polio (IPV/OPV) 2001 Completed [facility] 00:00:00 [facility] DTAP 2001 Completed [facility] 00:00:00 [facility] HIB 4 Dose Schedule 2001 Completed [facility] 00:00:00 [facility] Hep B, Adol or Pedi 2001 Completed [facility] Dosage 00:00:00 [facility] Polio (IPV/OPV) 2001 Completed [facility] 00:00:00 [facility] DTAP 2001 Completed [facility] 00:00:00 [facility] HIB 4 Dose Schedule 2001 Completed [facility] 00:00:00 [facility] Hep B, Adol or Pedi 2001 Completed [facility] Dosage 00:00:00 [facility] Polio (IPV/OPV) 2001 Completed [facility] 00:00:00 [facility] DTAP 2001 Completed [facility] 00:00:00 [facility] DTAP 2001 Completed [facility] 00:00:00 [facility] HIB 4 Dose Schedule 2001 Completed [facility] 00:[facility]00 [facility] Hep B, Adol or Pedi 2001 Completed [facility] Dosage 00:00:00 [facility] Polio (IPV/OPV) 2001 Completed [facility]00 [facility] DTAP 2001 Completed [facility] 00:00:00 [facility] HIB 4 Dose Schedule 2001 Completed [facility] 00:00:00 [facility] Hep B, Adol or Pedi 2001 Completed [facility] Dosage 00:00:00 [facility] HIB 4 Dose Schedule 2001 Completed [facility] 00:00:00 [facility] Polio (IPV/OPV) 2001 Completed [facility] 00:00:00 [facility] DTAP 2001 Completed [facility] 00:00:00 [facility] HIB 4 Dose Schedule 2001 Completed [facility] 00:00:00 [facility] Hep B, Adol or Pedi 2001 Completed [facility] Dosage 00:00:00 [facility] Polio (IPV/OPV) 2001 Completed [facility] 00:00:00 [facility] DTAP 2001 Completed [facility] 00:00:00 [facility] Hep B, Adol or Pedi 2001 Completed [facility] Dosage 00:00:00 [facility] HIB 4 Dose Schedule 2001 Completed [facility] 00[facility]00:00 [facility] Hep B, Adol or Pedi 2001 Completed [facility] Dosage 00:00:00 [facility] Polio (IPV/OPV) 2001 Completed [facility] 00:00:00 [facility] DTAP 2001 Completed [facility] 00:00:00 [facility] HIB 4 Dose Schedule 2001 Completed [facility] 00:00:00 [facility] Hep B, Adol or Pedi 2001 Completed [facility] Dosage 00:00:00 [facility] Polio (IPV/OPV) 2001 Completed [facility] 00:00:00 [facility] Polio (IPV/OPV) 2001 Completed [facility] 00:00:00 [facility] DTAP 2001 Completed [facility] 00:00:00 [facility] HIB 4 Dose Schedule 2001 Completed [facility] 00:00:00 [facility] Hep B, Adol or Pedi 2001 Completed [facility] Dosage 00:00:00 [facility] Polio (IPV/OPV) 2001 Completed [facility] 00:00:00 [facility] DTAP 2001 Completed [facility] 00:00:00 [facility] HIB 4 Dose Schedule 2001 Completed [facility] 00:00:00 [facility] Hep B, Adol or Pedi 2001 Completed [facility] Dosage 00:00:00 [facility] Polio (IPV/OPV) 2001 Completed [facility] 00:00:00 [facility] DTAP 2001 Completed [facility] 00:00:00 [facility] HIB 4 Dose Schedule 2001 Completed [facility] 00:00:00 [facility] Hep B, Adol or Pedi 2001 Completed [facility] Dosage 00:00:00 [facility] Polio (IPV/OPV) 2001 Completed [facility] 00:00:00 [facility] DTAP 2001 Completed [facility] 00[facility]00:00 [facility] HIB 4 Dose Schedule 2001 Completed [facility] 00:00:00 [facility] Hep B, Adol or Pedi 2001 Completed [facility] Dosage 00:00:00 [facility] Polio (IPV/OPV) 2001 Completed [facility] 00:00:00 [facility] DTAP 2001 Completed [facility] 00:00:00 [facility] DTAP 2001 Completed [facility] 00:00:00 [facility] HIB 4 Dose Schedule 2001 Completed [facility] 00:00:00 [facility] Hep B, Adol or Pedi 2001 Completed [facility] Dosage 00:00:00 [facility] Polio (IPV/OPV) 2001 Completed [facility] 00:00:00 [facility] HIB 4 Dose Schedule 2001 Completed [facility] 00:00:00 [facility] DTAP 2001 Completed [facility] 00:00:00 [facility] HIB 4 Dose Schedule 2001 Completed [facility] 00:00:00 [facility] Hep B, Adol or Pedi 2001 Completed [facility] Dosage 00:00:00 [facility] Polio (IPV/OPV) 2001 Completed [facility] 00[facility]00:00 [facility] DTAP 2001 Completed [facility] 00:00:00 [facility] HIB 4 Dose Schedule 2001 Completed [facility] 00:00:00 [facility] Hep B, Adol or Pedi 2001 Completed [facility] Dosage 00:00:00 [facility] Polio (IPV/OPV) 2001 Completed [facility] 00:00:00 [facility] Hep B, Adol or Pedi 2001 Completed [facility] Dosage 00:00:00 [facility] DTAP 2001 Completed [facility] 00:00:00 [facility] HIB 4 Dose Schedule 2001 Completed [facility] 00:00:00 [facility] Hep B, Adol or Pedi 2001 Completed [facility] Dosage 00:00:00 [facility] Polio (IPV/OPV) 2001 Completed [facility] 00:00:00 [facility] DTAP 2001 Completed [facility] 00:00:00 [facility] HIB 4 Dose Schedule 2001 Completed [facility] 00:00:00 [facility] Hep B, Adol or Pedi 2001 Completed [facility] Dosage 00:00:00 [facility] Polio (IPV/OPV) 2001 Completed [facility] 00:00:00 [facility] Polio (IPV/OPV) 2001 Completed [facility] 00:00:00 [facility] DTAP 2001 Completed [facility] 00:00:00 [facility] HIB 4 Dose Schedule 2001 Completed [facility] 00:00:00 [facility] Hep B, Adol or Pedi 2001 Completed [facility] Dosage 00:00:00 [facility] Polio (IPV/OPV) 2001 Completed [facility] 00:00:00 [facility] DTAP 2001 Completed [facility] 00:00:00 [facility] HIB 4 Dose Schedule 2001 Completed [facility] 00:00:00 [facility] Hep B, Adol or Pedi 2001 Completed [facility] Dosage 00:00:00 [facility] Polio (IPV/OPV) 2001 Completed [facility] 00:00:00 [facility] DTAP 2001 Completed [facility] 00:00:00 [facility] HIB 4 Dose Schedule 2001 Completed [facility] 00:00:00 [facility] Hep B, Adol or Pedi 2001 Completed [facility] Dosage 00:00:00 [facility] Polio (IPV/OPV) 2001 Completed [facility] 00:00:00 [facility] DTAP 2001 Completed [facility] 00:00:00 [facility] HIB 4 Dose Schedule 2001 Completed [facility] 00:00:00 [facility] Hep B, Adol or Pedi 2001 Completed [facility] Dosage 00:00:00 [facility] Polio (IPV/OPV) 2001 Completed [facility] 00:00:00 [facility] DTAP 2001 Completed [facility] 00[facility]00:00 [facility] DTAP 2001 Completed [facility] 00:00:00 [facility] HIB 4 Dose Schedule 2001 Completed [facility] 00:00:00 [facility] Hep B, Adol or Pedi 2001 Completed [facility] Dosage 00:00:00 [facility] Polio (IPV/OPV) 2001 Completed [facility] 00:00:00 [facility] DTAP 2001 Completed [facility] 00:00:00 [facility] HIB 4 Dose Schedule 2001 Completed [facility] 00:00:00 [facility] HIB 4 Dose Schedule 2001 Completed [facility] 00:00:00 [facility] Hep B, Adol or Pedi 2001 Completed [facility] Dosage 00:00:00 [facility] Polio (IPV/OPV) 2001 Completed [facility] 00[facility]00:00 [facility] Hep B, Adol or Pedi 2001 Completed [facility] Dosage 00:00:00 [facility] Polio (IPV/OPV) 2001 Completed [facility] 00:00:00 [facility] DTAP 2001 Completed [facility] 00:00:00 [facility] HIB 4 Dose Schedule 2001 Completed [facility] 00:00:00 [facility] Hep B, Adol or Pedi 2001 Completed [facility] Dosage 00:00:00 [facility] Polio (IPV/OPV) 2001 Completed [facility] 00:00:00 [facility] DTAP 2001 Completed [facility] 00:00:00 [facility] HIB 4 Dose Schedule 2001 Completed [facility] 00:00:00 [facility] Hep B, Adol or Pedi 2001 Completed [facility] Dosage 00:00:00 [facility] Polio (IPV/OPV) 2001 Completed [facility] 00:00:00 [facility] DTAP 2001 Completed [facility] 00:00:00 [facility] HIB 4 Dose Schedule 2001 Completed [facility] 00:00:00 [facility] Hep B, Adol or Pedi 2001 Completed [facility] Dosage 00:00:00 [facility] Polio (IPV/OPV) 2001 Completed [facility] 00:00:00 [facility] DTAP 2001 Completed [facility] 00:00:00 [facility] HIB 4 Dose Schedule 2001 Completed [facility] 00:00:00 [facility] Hep B, Adol or Pedi 2001 Completed [facility] Dosage 00:00:00 [facility] Polio (IPV/OPV) 2001 Completed [facility] 00:00:00 [facility] DTAP 2001 Completed [facility] 00:00:00 [facility] HIB 4 Dose Schedule 2001 Completed [facility] 00:00:00 [facility] Hep B, Adol or Pedi 2001 Completed [facility] Dosage 00:00:00 [facility] Polio (IPV/OPV) 2001 Completed [facility] 00:00:00 [facility] DTAP 2001 Completed [facility] 00:00:00 [facility] HIB 4 Dose Schedule 2001 Completed [facility] 00:00:00 [facility] Hep B, Adol or Pedi 2001 Completed [facility] Dosage 00:00:00 [facility] Polio (IPV/OPV) 2001 Completed [facility] 00:00:00 [facility] DTAP 2001 Completed [facility] 00:00:00 [facility] HIB 4 Dose Schedule 2001 Completed [facility] 00:00:00 [facility] Hep B, Adol or Pedi 2001 Completed [facility] Dosage 00:00:00 [facility] Polio (IPV/OPV) 2001 Completed [facility] 00:00:00 [facility] DTAP 2001 Completed [facility] 00:00:00 [facility] HIB 4 Dose Schedule 2001 Completed [facility] 00:00:00 [facility] Hep B, Adol or Pedi 2001 Completed [facility] Dosage 00:00:00 [facility] Polio (IPV/OPV) 2001 Completed [facility] 00:00:00 [facility] DTAP 2001 Completed [facility] 00:00:00 [facility] HIB 4 Dose Schedule 2001 Completed [facility] 00:00:00 [facility] Hep B, Adol or Pedi 2001 Completed [facility] Dosage 00:00:00 [facility] Polio (IPV/OPV) 2001 Completed [facility] 00:00:00 [facility] DTAP 2001 Completed [facility] 00:00:00 [facility] HIB 4 Dose Schedule 2001 Completed [facility] 00:00:00 [facility] Hep B, Adol or Pedi 2001 Completed [facility] Dosage 00:00:00 [facility] Polio (IPV/OPV) 2001 Completed [facility] 00:00:00 [facility] DTAP 2001 Completed [facility] 00:00:00 [facility] HIB 4 Dose Schedule 2001 Completed [facility] 00:00:00 [facility] Hep B, Adol or Pedi 2001 Completed [facility] Dosage 00:00:00 [facility] Polio (IPV/OPV) 2001 Completed [facility] 00:00:00 [facility] DTAP 2001 Completed [facility] 00:00:00 [facility] HIB 4 Dose Schedule 2001 Completed [facility] 00:00:00 [facility] Hep B, Adol or Pedi 2001 Completed [facility] Dosage 00:00:00 [facility] Polio (IPV/OPV) 2001 Completed [facility] 00:00:00 [facility] DTAP 2001 Completed [facility] 00:00:00 [facility] HIB 4 Dose Schedule 2001 Completed [facility] 00:00:00 [facility] Hep B, Adol or Pedi 2001 Completed [facility] Dosage 00:00:00 [facility] Polio (IPV/OPV) 2001 Completed [facility] 00:00:00 [facility] DTAP 2001 Completed [facility] 00:00:00 [facility] HIB 4 Dose Schedule 2001 Completed [facility] 00:00:00 [facility] Hep B, Adol or Pedi 2001 Completed [facility] Dosage 00:00:00 [facility] Polio (IPV/OPV) 2001 Completed [facility] 00:00:00 [facility] DTAP 2001 Completed [facility] 00:00:00 [facility] HIB 4 Dose Schedule 2001 Completed [facility] 00:00:00 [facility] Hep B, Adol or Pedi 2001 Completed [facility] Dosage 00:00:00 [facility] Polio (IPV/OPV) 2001 Completed [facility] 00:00:00 [facility] DTAP 2001 Completed [facility] 00:00:00 [facility] HIB 4 Dose Schedule 2001 Completed [facility] 00:00:00 [facility] DTAP 2001 Completed [facility] 00:00:00 [facility] Hep B, Adol or Pedi 2001 Completed [facility] Dosage 00:00:00 [facility] Polio (IPV/OPV) 2001 Completed [facility] 00:00:00 [facility] DTAP 2001 Completed [facility] 00:00:00 [facility] HIB 4 Dose Schedule 2001 Completed [facility] 00:00:00 [facility] Hep B, Adol or Pedi 2001 Completed [facility] Dosage 00:00:00 [facility] Polio (IPV/OPV) 2001 Completed [facility] 00:00:00 [facility] HIB 4 Dose Schedule 2001 Completed [facility] 00:00:00 [facility] DTAP 2001 Completed [facility] 00:00:00 [facility] HIB 4 Dose Schedule 2001 Completed [facility] 00:00:00 [facility] Hep B, Adol or Pedi 2001 Completed [facility] Dosage 00:00:00 [facility] Polio (IPV/OPV) 2001 Completed [facility] 00:00:00 [facility] DTAP 2001 Completed [facility] 00:00:00 [facility] HIB 4 Dose Schedule 2001 Completed [facility] 00:00:00 [facility] Hep B, Adol or Pedi 2001 Completed [facility] Dosage 00:00:00 [facility] Hep B, Adol or Pedi 2001 Completed [facility] Dosage 00:00:00 [facility] Polio (IPV/OPV) 2001 Completed [facility] 00:00:00 [facility] DTAP 2001 Completed [facility] 00:00:00 [facility] HIB 4 Dose Schedule 2001 Completed [facility] 00:00:00 [facility] Hep B, Adol or Pedi 2001 Completed [facility] Dosage 00:00:00 [facility] Polio (IPV/OPV) 2001 Completed [facility] 00:00:00 [facility] DTAP 2001 Completed [facility] 00:00:00 [facility] Polio (IPV/OPV) 2001 Completed [facility] 00:00:00 [facility] HIB 4 Dose Schedule 2001 Completed [facility] 00:00:00 [facility] Hep B, Adol or Pedi 2001 Completed [facility] Dosage 00:00:00 [facility] Polio (IPV/OPV) 2001 Completed [facility] 00:00:00 [facility] DTAP 2001 Completed [facility] 00:00:00 [facility] HIB 4 Dose Schedule 2001 Completed [facility] 00:00:00 [facility] Hep B, Adol or Pedi 2001 Completed [facility] Dosage 00:00:00 [facility] Polio (IPV/OPV) 2001 Completed [facility] 00:00:00 [facility] DTAP 2001 Completed [facility] 00:00:00 [facility] HIB 4 Dose Schedule 2001 Completed [facility] 00:00:00 [facility] Hep B, Adol or Pedi 2001 Completed [facility] Dosage 00:00:00 [facility] Polio (IPV/OPV) 2001 Completed [facility] 00:00:00 [facility] DTAP 2001 Completed [facility] 00:00:00 [facility] HIB 4 Dose Schedule 2001 Completed [facility] 00:00:00 [facility] Hep B, Adol or Pedi 2001 Completed [facility] Dosage 00:00:00 [facility] Polio (IPV/OPV) 2001 Completed [facility] 00:00:00 [facility] DTAP 2001 Completed [facility] 00:00:00 [facility] HIB 4 Dose Schedule 2001 Completed [facility] 00:00:00 [facility] Hep B, Adol or Pedi 2001 Completed [facility] Dosage 00:00:00 [facility] Polio (IPV/OPV) 2001 Completed [facility] 00:00:00 [facility] DTAP 2001 Completed [facility] 00:00:00 [facility] HIB 4 Dose Schedule 2001 Completed [facility] 00:00:00 [facility] Hep B, Adol or Pedi 2001 Completed [facility] Dosage 00:00:00 [facility] Polio (IPV/OPV) 2001 Completed [facility] 00:00:00 [facility] DTAP 2001 Completed [facility] 00:00:00 [facility] DTAP 2001 Completed [facility] 00:00:00 [facility] HIB 4 Dose Schedule 2001 Completed [facility] 00:00:00 [facility] Hep B, Adol or Pedi 2001 Completed [facility] Dosage 00:00:00 [facility] Polio (IPV/OPV) 2001 Completed [facility] 00:00:00 [facility] DTAP 2001 Completed [facility] 00:00:00 [facility] HIB 4 Dose Schedule 2001 Completed [facility] 00:00:00 [facility] HIB 4 Dose Schedule 2001 Completed [facility] 00:00:00 [facility] Hep B, Adol or Pedi 2001 Completed [facility] Dosage 00:00:00 [facility] Polio (IPV/OPV) 2001 Completed [facility] 00:00:00 [facility] DTAP 2001 Completed [facility] 00:00:00 [facility] HIB 4 Dose Schedule 2001 Completed [facility] 00:00:00 [facility] Hep B, Adol or Pedi 2001 Completed [facility] Dosage 00:00:00 [facility] Polio (IPV/OPV) 2001 Completed [facility] 00:00:00 [facility] Hep B, Adol or Pedi 2001 Completed [facility] Dosage 00:00:00 [facility] DTAP 2001 Completed [facility] 00:00:00 [facility] HIB 4 Dose Schedule 2001 Completed [facility] 00:00:00 [facility] Hep B, Adol or Pedi 2001 Completed [facility] Dosage 00:00:00 [facility] Polio (IPV/OPV) 2001 Completed [facility] 00:00:00 [facility] DTAP 2001 Completed [facility] 00:00:00 [facility] HIB 4 Dose Schedule 2001 Completed [facility] 00:00:00 [facility] Hep B, Adol or Pedi 2001 Completed [facility] Dosage 00:00:00 [facility] Polio (IPV/OPV) 2001 Completed [facility] 00:00:00 [facility] Polio (IPV/OPV) 2001 Completed [facility] 00:00:00 [facility] DTAP 2001 Completed [facility] 00:00:00 [facility] HIB 4 Dose Schedule 2001 Completed [facility] 00:00:00 [facility] Hep B, Adol or Pedi 2001 Completed [facility] Dosage 00:00:00 [facility] Polio (IPV/OPV) 2001 Completed [facility] 00:00:00 [facility] DTAP 2001 Completed [facility] 00:00:00 [facility] HIB 4 Dose Schedule 2001 Completed [facility] 00:00:00 [facility] Hep B, Adol or Pedi 2001 Completed [facility] Dosage 00:00:00 [facility] Polio (IPV/OPV) 2001 Completed [facility] 00:00:00 [facility] DTAP 2001 Completed [facility] 00:00:00 [facility] HIB 4 Dose Schedule 2001 Completed [facility] 00:00:00 [facility] Hep B, Adol or Pedi 2001 Completed [facility] Dosage 00:00:00 [facility] Polio (IPV/OPV) 2001 Completed [facility] 00:00:00 [facility] DTAP 2001 Completed [facility] 00:00:00 [facility] HIB 4 Dose Schedule 2001 Completed [facility] 00:00:00 [facility] Hep B, Adol or Pedi 2001 Completed [facility] Dosage 00:00:00 [facility] Polio (IPV/OPV) 2001 Completed [facility] 00:00:00 [facility] DTAP 2001 Completed [facility] 00[facility]00:00 [facility] DTAP 2001 Completed [facility] 00:00:00 [facility] HIB 4 Dose Schedule 2001 Completed [facility] 00:00:00 [facility] Hep B, Adol or Pedi 2001 Completed [facility] Dosage 00:00:00 [facility] Polio (IPV/OPV) 2001 Completed [facility] 00:00:00 [facility] HIB 4 Dose Schedule 2001 Completed [facility] 00:00:00 [facility] DTAP 2001 Completed [facility] 00:00:00 [facility] HIB 4 Dose Schedule 2001 Completed [facility] 00:00:00 [facility] Hep B, Adol or Pedi 2001 Completed [facility] Dosage 00:00:00 [facility] Polio (IPV/OPV) 2001 Completed [facility] 00:00:00 [facility] DTAP 2001 Completed [facility] 00:00:00 [facility] HIB 4 Dose Schedule 2001 Completed [facility] 00:00:00 [facility] Hep B, Adol or Pedi 2001 Completed [facility] Dosage 00:00:00 [facility] Polio (IPV/OPV) 2001 Completed [facility] 00:00:00 [facility] Hep B, Adol or Pedi 2001 Completed [facility] Dosage 00:00:00 [facility] DTAP 2001 Completed [facility] 00:00:00 [facility] HIB 4 Dose Schedule 2001 Completed [facility] 00:00:00 [facility] Hep B, Adol or Pedi 2001 Completed [facility] Dosage 00:00:00 [facility] Polio (IPV/OPV) 2001 Completed [facility] 00:00:00 [facility] DTAP 2001 Completed [facility] 00:00:00 [facility] HIB 4 Dose Schedule 2001 Completed [facility] 00:00:00 [facility] Polio (IPV/OPV) 2001 Completed [facility] 00:00:00 [facility] Hep B, Adol or Pedi 2001 Completed [facility] Dosage 00:00:00 [facility] Polio (IPV/OPV) 2001 Completed [facility] 00:00:00 [facility] DTAP 2001 Completed [facility] 00:00:00 [facility] HIB 4 Dose Schedule 2001 Completed [facility] 00:00:00 [facility] Hep B, Adol or Pedi 2001 Completed [facility] Dosage 00:00:00 [facility] Polio (IPV/OPV) 2001 Completed [facility] 00:00:00 [facility] DTAP 2001 Completed [facility] 00:00:00 [facility] HIB 4 Dose Schedule 2001 Completed [facility] 00:00:00 [facility] Hep B, Adol or Pedi 2001 Completed [facility] Dosage 00:00:00 [facility] Polio (IPV/OPV) 2001 Completed [facility] 00:00:00 [facility] DTAP 2001 Completed [facility] 00:00:00 [facility] HIB 4 Dose Schedule 2001 Completed [facility] 00:00:00 [facility] Hep B, Adol or Pedi 2001 Completed [facility] Dosage 00:00:00 [facility] Polio (IPV/OPV) 2001 Completed [facility] 00:00:00 [facility] DTAP 2001 Completed [facility] 00:00:00 [facility] HIB 4 Dose Schedule 2001 Completed [facility] rsity of 00:00:00 [facility] Hep B, Adol or Pedi 2001 Completed Unive rsity of Dosage 00:00:00 [facility] Polio (IPV/OPV) 2001 Completed [facility] 00:00:00 [facility] DTAP 2001 Completed University of 00:00:00 [facility] DTAP 2001 Completed University of 00:00:00 [facility] HIB 4 Dose Schedule 2001 Completed Unive rsity of 00:00:00 [facility] Hep B, Adol or Pedi 2001 Completed Unive rsity of Dosage 00:00:00 [facility] Polio (IPV/OPV) 2001 Completed [facility] y of 00:00:00 [facility] HIB 4 Dose Schedule 2001 Completed Unive rsity of 00:00:00 [facility] DTAP 2001 Completed University of 00:00:00 [facility] HIB 4 Dose Schedule 2001 Completed Unive rsity of 00:00:00 [facility] Hep B, Adol or Pedi 2001 Completed Unive rsity of Dosage 00:00:00 [facility] Polio (IPV/OPV) 2001 Completed [facility] 00:00:00 [facility] Hep B, Adol or Pedi 2001 Completed Unive rsity of Dosage 00:00:00 [facility] Polio (IPV/OPV) 2001 Completed [facility]it y of 00:00:00 [facility] DTAP 2001 Completed University of 00:00:00 [facility] HIB 4 Dose Schedule 2001 Completed Unive rsity of 00:00:00 [facility] Hep B, Adol or Pedi 2001 Completed Unive rsity of Dosage 00:00:00 [facility] Polio (IPV/OPV) 2001 Completed [facility] 00:00:00 [facility] DTAP 2001 Completed University of 00:00:00 [facility] HIB 4 Dose Schedule 2001 Completed Unive rsity of 00:00:00 [facility] Hep B, Adol or Pedi 2001 Completed [facility]ive rsity of Dosage 00:00:00 [facility] Polio (IPV/OPV) 2001 Completed [facility] of 00:00:00 [facility] DTAP 2001 Completed University of 00:00:00 [facility] HIB 4 Dose Schedule 2001 Completed [facility]ive rsity of 00:00:00 [facility] Hep B, Adol or Pedi 2001 Completed [facility]ive rsity of Dosage 00:00:00 [facility] Polio (IPV/OPV) 2001 Completed [facility] of 00:00:00 [facility] DTAP 2001 Completed University of 00:00:00 [facility] HIB 4 Dose Schedule 2001 Completed [facility]ive rsity of 00:00:00 [facility] Hep B, Adol or Pedi 2001 Completed [facility]ive rsity of Dosage 00:00:00 [facility] Polio (IPV/OPV) 2001 Completed [facility] of 00:00:00 [facility] DTAP 2001 Completed University of 00:00:00 [facility] HIB 4 Dose Schedule 2001 Completed [facility]ive rsity of 00:00:00 [facility] Hep B, Adol or Pedi 2001 Completed [facility]ive rsity of Dosage 00:00:00 [facility] Polio (IPV/OPV) 2001 Completed [facility] 00:00:00 [facility] DTAP 2001 Completed [facility] of 00:00:00 [facility] HIB 4 Dose Schedule 2001 Completed [facility]ive rsity of 00:00:00 [facility] Hep B, Adol or Pedi 2001 Completed Unive rsity of Dosage 00:00:00 [facility] Polio (IPV/OPV) 2001 Completed [facility]it [facility] 00:00:00 [facility] DTAP 2001 Completed University of 00:00:00 [facility] HIB 4 Dose Schedule 2001 Completed [facility]ive rsity of 00:00:00 [facility] Hep B, Adol or Pedi 2001 Completed [facility]ive rsity of Dosage 00:00:00 [facility] Polio (IPV/OPV) 2001 Completed [facility] 00:00:00 [facility] DTAP 2001 Completed University of 00:00:00 [facility] HIB 4 Dose Schedule 2001 Completed [facility]ive rsity of 00:00:00 [facility] Hep B, Adol or Pedi 2001 Completed [facility]ive rsity of Dosage 00:00:00 [facility] Polio (IPV/OPV) 2001 Completed [facility] of 00:00:00 [facility] DTAP 2001 Completed [facility] of 00:00:00 [facility] HIB 4 Dose Schedule 2001 Completed Unive rsity of 00:00:00 [facility] Hep B, Adol or Pedi 2001 Completed [facility]ive rsity of Dosage 00:00:00 [facility] Polio (IPV/OPV) 2001 Completed [facility] of 00:00:00 [facility] DTAP 2001 Completed [facility] of 00:00:00 [facility] HIB 4 Dose Schedule 2001 Completed [facility]ive rsity of 00:00:00 [facility] Hep B, Adol or Pedi 2001 Completed Unive rsity of Dosage 00:00:00 [facility] Polio (IPV/OPV) 2001 Completed [facility]it [facility] of 00:00:00 [facility] DTAP 2001 Completed [facility] of 00:00:00 [facility] HIB 4 Dose Schedule 2001 Completed [facility]ive rsity of 00:00:00 [facility] Hep B, Adol or Pedi 2001 Completed Unive rsity of Dosage 00:00:00 [facility] Polio (IPV/OPV) 2001 Completed [facility] 00:00:00 [facility] DTAP 2001 Completed [facility] of 00:00:00 [facility] HIB 4 Dose Schedule 2001 Completed Unive rsity of 00:00:00 [facility] Hep B, Adol or Pedi 2001 Completed Unive rsity of Dosage 00:00:00 [facility] Polio (IPV/OPV) 2001 Completed [facility]it [facility] of 00:00:00 [facility] DTAP 2001 Completed [facility] of 00:00:00 [facility] HIB 4 Dose Schedule 2001 Completed [facility]ive rsity of 00:00:00 [facility] Hep B, Adol or Pedi 2001 Completed Unive rsity of Dosage 00:00:00 [facility] Polio (IPV/OPV) 2001 Completed [facility] of 00:00:00 [facility] DTAP 2001 Completed [facility] of 00:00:00 [facility] HIB 4 Dose Schedule 2001 Completed [facility]ive rsity of 00:00:00 [facility] Hep B, Adol or Pedi 2001 Completed Unive rsity of Dosage 00:00:00 [facility] Polio (IPV/OPV) 2001 Completed [facility] of 00:00:00 [facility] DTAP 2001 Completed [facility] of 00:00:00 [facility] HIB 4 Dose Schedule 2001 Completed [facility]ive rsity of 00:00:00 [facility] Hep B, Adol or Pedi 2001 Completed [facility]ive rsity of Dosage 00:00:00 [facility] Polio (IPV/OPV) 2001 Completed [facility]it [facility] of 00:00:00 [facility] DTAP 2001 Completed [facility] of 00:00:00 [facility] DTAP 2001 Completed University of 00:00:00 [facility] HIB 4 Dose Schedule 2001 Completed Unive rsity of 00:00:00 [facility] Hep B, Adol or Pedi 2001 Completed Unive rsity of Dosage 00:00:00 [facility] Polio (IPV/OPV) 2001 Completed [facility] of 00:00:00 [facility] DTAP 2001 Completed [facility] of 00:00:00 [facility] HIB 4 Dose Schedule 2001 Completed Unive rsity of 00:00:00 [facility] Hep B, Adol or Pedi 2001 Completed Unive rsity of Dosage 00:00:00 [facility] HIB 4 Dose Schedule 2001 Completed Unive rsity of 00:00:00 [facility] Polio (IPV/OPV) 2001 Completed [facility] of 00:00:00 [facility] DTAP 2001 Completed [facility] of 00:00:00 [facility] HIB 4 Dose Schedule 2001 Completed Unive rsity of 00:00:00 [facility] Hep B, Adol or Pedi 2001 Completed Unive rsity of Dosage 00:00:00 [facility] Polio (IPV/OPV) 2001 Completed [facility] of 00:00:00 [facility] DTAP 2001 Completed [facility] of 00:00:00 [facility] Hep B, Adol or Pedi 2001 Completed Unive rsity of Dosage 00:00:00 [facility] HIB 4 Dose Schedule 2001 Completed Unive rsity of 00:00:00 [facility] Hep B, Adol or Pedi 2001 Completed Unive rsity of Dosage 00:00:00 [facility] Polio (IPV/OPV) 2001 Completed [facility] of 00:00:00 [facility] DTAP 2001 Completed [facility] of 00:00:00 [facility] HIB 4 Dose Schedule 2001 Completed Unive rsity of 00:00:00 [facility] Hep B, Adol or Pedi 2001 Completed Unive rsity of Dosage 00:00:00 [facility] Polio (IPV/OPV) 2001 Completed [facility] of 00:00:00 [facility] Hep B, Adol or Pedi 2001 Completed Unive rsity of Dosage 00:00:00 [facility] Hep B, Adol or Pedi 2001 Completed Unive [facility]ity of Dosage 00:00:00 [facility] Hep B, Adol or Pedi 2001 Completed Unive rsity of Dosage 00:00:00 [facility] Hep B, Adol or Pedi 2001 Completed Unive rsity of Dosage 00:00:00 [facility] Hep B, Adol or Pedi 2001 Completed Unive rsity of Dosage 00:00:00 [facility] Hep B, Adol or Pedi 2001 Completed Unive rsity of Dosage 00:00:00 [facility] Hep B, Adol or Pedi 2001 Completed Unive rsity of Dosage 00:00:00 [facility] Hep B, Adol or Pedi 2001 Completed Unive rsity of Dosage 00:00:00 [facility] Hep B, Adol or Pedi 2001 Completed Unive rsity of Dosage 00:00:00 [facility] Hep B, Adol or Pedi 2001 Completed Unive rsity of Dosage 00:00:00 [facility] Hep B, Adol or Pedi 2001 Completed Unive rsity of Dosage 00:00:00 [facility] Hep B, Adol or Pedi 2001 Completed Unive rsity of Dosage 00:00:00 [facility] Hep B, Adol or Pedi 2001 Completed Unive rsity of Dosage 00:00:00 [facility] Hep B, Adol or Pedi 2001 Completed Unive rsity of Dosage 00:00:00 [facility] Hep B, Adol or Pedi 2001 Completed Unive [facility]ity of Dosage 00:00:00 [facility] Hep B, Adol or Pedi 2001 Completed Unive [facility]ity of Dosage 00:00:00 [facility] Hep B, Adol or Pedi 2001 Completed Unive rsity of Dosage 00:00:00 [facility] Hep B, Adol or Pedi 2001 Completed Unive rsity of Dosage 00:00:00 [facility] Hep B, Adol or Pedi 2001 Completed Unive [facility]ity of Dosage 00:00:00 [facility] Hep B, Adol or Pedi 2001 Completed Unive rsity of Dosage 00:00:00 [facility] Hep B, Adol or Pedi 2001 Completed Unive [facility]ity of Dosage 00:00:00 [facility] Hep B, Adol or Pedi 2001 Completed Unive [facility]ity of Dosage 00:00:00 [facility] Hep B, Adol or Pedi 2001 Completed Unive [facility]ity of Dosage 00:00:00 [facility] Hep B, Adol or Pedi 2001 Completed Unive [facility]ity of Dosage 00:00:00 [facility] Hep B, Adol or Pedi 2001 Completed Unive rsity of Dosage 00:00:00 [facility] Hep B, Adol or Pedi 2001 Completed Unive rsity of Dosage 00:00:00 [facility] Hep B, Adol or Pedi 2001 Completed Unive rsity of Dosage 00:00:00 [facility] Hep B, Adol or Pedi 2001 Completed Unive rsity of Dosage 00:00:00 [facility] Hep B, Adol or Pedi 2001 Completed Unive rsity of Dosage 00:00:00 [facility] Hep B, Adol or Pedi 2001 Completed Unive rsity of Dosage 00:00:00 [facility] Hep B, Adol or Pedi 2001 Completed Unive rsity of Dosage 00:00:00 [facility] Hep B, Adol or Pedi 2001 Completed Unive rsity of Dosage 00:00:00 [facility] Hep B, Adol or Pedi 2001 Completed Unive [facility]ity of Dosage 00:00:00 [facility] Hep B, Adol or Pedi 2001 Completed Unive [facility]ity of Dosage 00:00:00 [facility] Hep B, Adol or Pedi 2001 Completed Unive [facility]ity of Dosage 00:00:00 [facility] Hep B, Adol or Pedi 2001 Completed Unive rsity of Dosage 00:00:00 [facility] Hep B, Adol or Pedi 2001 Completed Unive rsity of Dosage 00:00:00 [facility] Hep B, Adol or Pedi 2001 Completed Unive [facility]ity of Dosage 00:00:00 [facility] Hep B, Adol or Pedi 2001 Completed Unive rsity of Dosage 00:00:00 [facility] Hep B, Adol or Pedi 2001 Completed Unive rsity of Dosage 00:00:00 [facility] Hep B, Adol or Pedi 2001 Completed Unive rsity of Dosage 00:00:00 [facility] Hep B, Adol or Pedi 2001 Completed Unive rsity of Dosage 00:00:00 [facility] Hep B, Adol or Pedi 2001 Completed Unive rsity of Dosage 00:00:00 [facility] Hep B, Adol or Pedi 2001 Completed Unive rsity of Dosage 00:00:00 [facility] Hep B, Adol or Pedi 2001 Completed Unive rsity of Dosage 00:00:00 [facility] Hep B, Adol or Pedi 2001 Completed Unive rsity of Dosage 00:00:00 [facility] Hep B, Adol or Pedi 2001 Completed Unive rsity of Dosage 00:00:00 [facility] Hep B, Adol or Pedi 2001 Completed Unive rsity of Dosage 00:00:00 [facility] Hep B, Adol or Pedi 2001 Completed Unive rsity of Dosage 00:00:00 [facility] Hep B, Adol or Pedi 2001 Completed Unive rsity of Dosage 00:00:00 [facility] Vital Signs Vital Name Observation Time Observation Value Comments Source Systolic blood 2020-08-20 14:45:00 119 mm[Hg] Univer sity of pressure [facility] Diastolic blood 2020-08-20 14:45:00 75 mm[Hg] Unive rsity of pressure [facility] Heart rate 2020-08-20 14:45:00 80 /min Universi ty of [facility] Body temperature 2020-08-20 14:45:00 [facility].78 [facility] 2020-08-20 14:45:00 177.8 cm Universi ty of [facility] Body weight 2020-08-20 14:45:00 131.588 kg Universi ty [facility] BMI 2020-08-20 14:45:00 41.63 kg/m2 Universi ty [facility] Oxygen saturation in 2020-08-20 14:45:00 99 /min [facility] Arterial blood by [facility] Pulse oximetry Branch height 2020-08-12 10:30:00 69 [in_i] [facility] weight 2020-08-12 10:30:00 287 [lb_av] [facility] bmi 2020-08-12 10:30:00 42.38 kg/m2 [facility] blood pressure 2020-08-12 10:30:00 118 mm[Hg] [facility] - systolic [facility] blood pressure 2020-08-12 10:30:00 78 mm[Hg] [facility] Systolic blood 2020-07-09 15:47:00 123 mm[Hg] Univer sity of [facility] Diastolic blood 2020-07-09 15:47:00 80 mm[Hg] Unive rsity of pressure [facility] Heart rate 2020-07-09 15:47:00 92 /min Universi ty of [facility] Body temperature 2020-07-09 15:47:00 37 Lilo Univ ersity [facility] Respiratory rate 2020-07-09 15:47:00 18 /min Univ ersity of [facility] Body height 2020-07-09 15:47:00 175.3 cm Universi ty of [facility] Body weight 2020-07-09 15:47:00 127.914 kg Universi ty of [facility] BMI 2020-07-09 15:47:00 41.64 kg/m2 Universi ty of [facility] Oxygen saturation in 2020-07-09 15:47:00 98 /min University of Arterial blood by [facility] Pulse oximetry Branch Systolic blood 2020-06-25 16:42:00 120 mm[Hg] Univer sity of pressure [facility] Diastolic blood 2020-06-25 16:42:00 77 mm[Hg] Unive rsity of pressure [facility] Heart rate 2020-06-25 16:42:00 72 /min Universi ty of [facility] Body temperature 2020-06-25 16:42:00 37 Lilo Univ ersity of [facility] Respiratory rate 2020-06-25 16:42:00 18 /min Univ ersity of [facility] Body height 2020-06-25 16:42:00 177.8 cm Universi ty of [facility] Body weight 2020-06-25 16:42:00 127.914 kg Universi ty of [facility] BMI 2020-06-25 16:42:00 40.46 kg/m2 Universi ty of [facility] Oxygen saturation in 2020-06-25 16:42:00 100 /min University of Arterial blood by [facility] Pulse oximetry Branch Systolic blood 2020-06-17 12:15:00 138 mm[Hg] Univer sity of pressure [facility] Diastolic blood 2020-06-17 12:15:00 83 mm[Hg] Unive rsity of pressure [facility] Heart rate 2020-06-17 12:15:00 64 /min Universi ty of [facility] Body temperature 2020-06-17 12:15:00 36.44 Lilo Univ ersity of [facility] Respiratory rate 2020-06-17 12:15:00 18 /min Univ ersity of [facility] Body height 2020-06-17 12:15:00 177.8 cm Universi ty [facility] Body weight 2020-06-17 12:15:00 127.007 kg [facility] ty [facility] BMI 2020-06-17 12:15:00 40.18 kg/m2 [facility] ty [facility] Oxygen saturation in 2020-06-17 12:15:00 99 /min University of Arterial blood by [facility] Pulse oximetry Branch height 2020-06-10 10:30:00 69 [in_i] [facility] weight 2020-06-10 10:30:00 287 [lb_av] [facility] temperature 2020-06-10 10:30:00 97.3 [degF] [facility] bmi 2020-06-10 10:30:00 42.38 kg/m2 [facility] blood pressure 2020-06-10 10:30:00 120 mm[Hg] [facility] blood pressure 2020-06-10 10:30:00 74 mm[Hg] [facility] diastolic [facility] Systolic blood 2020-05-14 17:54:00 115 mm[Hg] Univer sity of pressure [facility] Diastolic blood 2020-05-14 17:54:00 67 mm[Hg] Unive rsity of pressure [facility] Heart rate 2020-05-14 17:54:00 77 /min Universi ty of [facility] Body temperature 2020-05-14 17:54:00 36.67 Lilo Univ ersity [facility] Respiratory rate 2020-05-14 17:54:00 18 /min Univ ersity [facility] Body height 2020-05-14 17:54:00 177.8 cm Universi ty [facility] Body weight 2020-05-14 17:54:00 128.323 kg Universi ty of [facility] BMI 2020-05-14 17:54:00 40.59 kg/m2 Universi ty of [facility] Oxygen saturation in 2020-05-14 17:54:00 100 /min University of Arterial blood by [facility] Pulse oximetry Branch Systolic blood 2020-05-14 17:54:00 115 mm[Hg] Univer sity of pressure [facility] Diastolic blood 2020-05-14 17:54:00 67 mm[Hg] Unive rsity of pressure [facility] Heart rate 2020-05-14 17:54:00 77 /min Universi ty [facility] Body temperature 2020-05-14 17:54:00 36.67 Lilo [facility] Res[facility] rate 2020-05-14 17:54:00 18 /min [facility] Body height 2020-05-14 17:54:00 177.8 cm Universi ty of [facility] Body weight 2020-05-14 17:54:00 128.323 kg Universi ty [facility] BMI 2020-05-14 17:54:00 40.59 kg/m2 Universi [facility] Oxygen saturation in 2020-05-14 17:54:00 100 /min [facility] Arterial blood by [facility] Pulse oximetry Branch height 2020-04-21 14:00:00 69 [in_i] [facility] weight 2020-04-21 14:00:00 279 [lb_av] [facility] temperature 2020-04-21 14:00:00 97.7 [degF] [facility] bmi 2020-04-21 14:00:00 41.2 kg/m2 [facility] blood pressure 2020-04-21 14:00:00 122 mm[Hg] [facility] blood pressure 2020-04-21 14:00:00 80 mm[Hg] [facility] blood pressure 2020-03-20 11:15:00 89 mm[Hg] [facility] height 2020-03-20 11:15:00 69 [in_i] [facility] weight 2020-03-20 11:15:00 279 [lb_av] Common [facility] bmi 2020-03-20 11:15:00 41.2 kg/m2 [facility] blood pressure 2020-03-20 11:15:00 147 mm[Hg] [facility] height 2020-03-11 15:30:00 69 [in_i] [facility] weight 2020-03-11 15:30:00 279 [lb_av] [facility] - [facility] temperature 2020-03-11 15:30:00 97.1 [degF] [facility] - [facility] bmi 2020-03-11 15:30:00 41.20 kg/m2 [facility] blood pressure 2020-03-11 15:30:00 133 mm[Hg] [facility] blood pressure 2020-03-11 15:30:00 84 mm[Hg] [facility] height 2020-02-28 10:00:00 69 [in_i] [facility] weight 2020-02-28 10:00:00 179 [lb_av] [facility] temperature 2020-02-28 10:00:00 97.3 [degF] [facility] - [facility] bmi 2020-02-28 10:00:00 26.43 kg/m2 [facility] - [facility] blood pressure 2020-02-28 10:00:00 124 mm[Hg] [facility] blood pressure 2020-02-28 10:00:00 84 mm[Hg] [facility] height 2020-02-12 10:30:00 69 [in_i] [facility] weight 2020-02-12 10:30:00 179 [lb_av] [facility] - [facility] temperature 2020-02-12 10:30:00 97.1 [degF] [facility] - [facility] bmi 2020-02-12 10:30:00 26.43 kg/m2 [facility] blood pressure 2020-02-12 10:30:00 124 mm[Hg] [facility] blood pressure 2020-02-12 10:30:00 82 mm[Hg] [facility] height 2020-01-29 11:00:00 69 [in_i] [facility] weight 2020-01-29 11:00:00 179 [lb_av] [facility] - [facility] bmi 2020-01-29 11:00:00 26.43 kg/m2 [facility] - [facility] blood pressure 2020-01-29 11:00:00 118 mm[Hg] [facility] blood pressure 2020-01-29 11:00:00 82 mm[Hg] [facility] height 2020-01-22 13:00:00 69 [in_i] [facility] - [facility] weight 2020-01-22 13:00:00 179 [lb_av] [facility] bmi 2020-01-22 13:00:00 26.43 kg/m2 [facility] blood pressure 2020-01-22 13:00:00 120 mm[Hg] [facility] blood pressure 2020-01-22 13:00:00 80 mm[Hg] [facility] Systolic blood 2020-01-20 19:46:00 140 mm[Hg] Univer sity of pressure [facility] Diastolic blood 2020-01-20 19:46:00 79 mm[Hg] Unive rsity of [facility] Heart rate 2020-01-20 19:46:00 99 /min Universi ty [facility] Body temperature 2020-01-20 19:46:00 37.44 Lilo Univ ersity of [facility] Respiratory rate 2020-01-20 19:46:00 18 /[facility] Body weight 2020-01-20 19:46:00 126.554 kg Universi ty [facility] Oxygen saturation in 2020-01-20 19:46:00 97 /min University Arterial blood by [facility] Pulse oximetry Branch Systolic blood 2020-01-02 14:09:00 120 mm[Hg] Univer sity of pressure [facility] Diastolic blood 2020-01-02 14:09:00 83 mm[Hg] Unive rsity of pressure [facility] Heart rate 2020-01-02 14:09:00 79 /min Universi ty [facility] Body temperature 2020-01-02 14:09:00 36.67 Lilo [facility] ersity of [facility] Respiratory rate 2020-01-02 14:09:00 18 /min Univ ersity of [facility] Body height 2020-01-02 14:09:00 175.3 cm [facility] [place] Body weight 2020-01-02 14:09:00 126.554 kg [facility] [place] BMI 2020-01-02 14:09:00 41.20 kg/m2 [facility] Oxygen saturation in 2020-01-02 14:09:00 100 /min [facility] Arterial blood by [facility] Pulse oximetry Branch Systolic blood 2019-11-23 15:43:00 132 mm[Hg] Univer sity of pressure [facility] Diastolic blood 2019-11-23 15:43:00 80 mm[Hg] [facility] Heart rate 2019-11-23 15:43:00 87 /min [facility] Body temperature 2019-11-23 15:43:00 37.22 Lilo [facility] Respiratory rate 2019-11-23 15:43:00 20 /min [facility] ersity of [facility] Body height 2019-11-23 15:43:00 172.5 cm [facility] Body weight 2019-11-23 15:43:00 126.724 kg [facility] BMI 2019-11-23 15:43:00 42.59 kg/m2 [facility] Body height 2019-08-17 16:00:00 177.8 cm [facility] Body weight 2019-08-17 16:00:00 113.399 kg [facility] BMI 2019-08-17 16:00:00 35.87 kg/m2 [facility] Procedures Procedure Date / Time Performing Clinician Source Performed POCT TEST 2020-06-17 11:30:00 Maria R He [facility] ASSIGNMENT OF BENEFITS 2020-06-17 10:54:43 Doctor Unassigned, No [facility] Name Medical Branch DISCLOSURE AND CONSENT, 2020-05-14 06:01:00 Doctor Unassigned, N o [facility] MEDICAL AND SURGICAL Name Medical Bra [facility] PROCEDURES XR KNEE 3 VW RIGHT 2020-01-20 20:20:03 [facility] CONSENT/REFUSAL FOR 2020-01-20 19:36:17 Doctor Unassigned, No [facility] Name [facility] DISCLOSURE AND CONSENT, 2020-01-02 05:01:00 Doctor Unassigned, N o [facility] MEDICAL AND SURGICAL Name Medical Bra nc PROCEDURES MENINGOCOCCAL B VACCINE, 2019-11-23 15:55:20 Izzy Villanueva [facility] OMV, 2 DOSE, IM [facility] NOTICE OF PRIVACY 2019-11-23 15:23:48 Doctor Unassigned, No Univ [facility] PRACTICES Name [facility] Encounters Start End Encounter Admission Attending Care Care Encounter Source Date/Time Date/Time Type Type Clinicians Facility Department ID 2021-05-13 [facility] [id number] Common 11:52:27 [id number] [facility] 2021-02-15 Outpatient ELVIE FAN [facility] [id number] Univers 01:09:16 ity [facility] 2021-02-13 Emergency [facility] [id number] Univers 20:55:59 ity [facility] 2020-08-20 2020-08-20 Office Elvie Fan [facility] 1.2.840.114 [id number] Univers 09:39:34 10:17:52 Visit E SPECIALTY [id number] ity of CARE 4.2.7.2.686 [facility] AT [phone] Ak dicberna [facility] [address] [place] 2020-08-20 2020-08-20 Outpatient ELVIE DOOLEY [facility] [id number] Univers 09:45:00 09:45:00 ity [facility] 2020-08-12 2020-08-12 [facility]ICE [facility] [id number] Co mmon 00:00:00 00:00:00 VISIT EST Spir it PT LEVEL 3 - [facility] 2020-07-23 2020-07-23 Outpatient ELVIE DOOLEY [facility] [id number] Univers 10:45:00 10:45:00 ity [facility] 2020-07-16 2020-07-16 Outpatient ELVIE DOOLEY [facility] [id number] Univers 09:45:00 09:45:00 ity of [facility] 2020-07-16 2020-07-16 Telemedici Elvie Fan [facility] [id number] Univers 07:55:20 08:10:20 ne Visit E SPECIALTY [id number] [id number] [id number] Ak gumaro EDWAR[place] [address] [place] [address] 2020-07-09 2020-07-09 Office Mita [facility] 1.2.840.114 [id number] Univers 10:42:26 11:51:21 Visit E SPECIALTY 350.1.13.10 ity of CARE 4.2.7.2.686 [facility] AT [phone] Ak gumaro [place] [address] [place] [address] 2020-07-09 2020-07-09 Outpatient R MITASANTYIE [facility] [id number] Univers 10:45:00 10:45:00 ity of [facility] 2020-06-25 2020-06-25 Office Mita [facility] 1.2.840.114 [id number] Univers 10:31:50 11:20:56 Visit E SPECIALTY 350.1.13.10 ity of CARE 4.2.7.2.686 [facility] AT [phone] Ak gumaro EDW[place] [address] [place] [address] 2020-06-25 2020-06-25 Outpatient R MITA ELVIE [facility] [id number] Univers 10:45:00 10:45:00 ity of [facility] 2020-06-20 2020-06-20 Outpatient R FARHEEN [facility] [id number] Univers 13:00:00 13:00:00 DANIS aviles [facility] 2020-06-17 2020-06-17 Hospital Mita Elvie [facility] [id number] Univers 04:54:00 12:53:00 Encounter E Health [id number] it[place]2.686 [place] [facility] [phone] [address] ([facility]) 2020-06-17 2020-06-17 Orders Doctor ADRI 1.2.840.114 [id number] Univers 00:00:00 00:00:00 Only Unassigned, MELBA 350.1.13.10 ity of [place] [facility] 4.2.7.2.686 [place] as [phone] [facility] [address] [place] 2020-06-17 2020-06-17 Telephone Elvie Fan [facility] 1.2.840.114 [id number] Univers 00:00:00 00:00:00 E SPECIALTY 350.1.13.10 [place] [phone] Ak gumaro [place] [address] [facility] 2020-06-16 2020-06-16 Nurse ADRI Manrique 1.2.840.114 [id number] Univers 00:00:00 00:00:00 Triage Randiaden REILLY 350.1.13.10 it y of HOSPITAL 4.2.7.2.686 [place] as [phone] [facility] [address] [place] 2020-06-13 2020-06-13 Laboratory Only, Adc Test [facility] 1.2.840. [id number] Univers 09:42:52 09:57:52 Only Dhiraj June [id number] ity of [place] 4.2.7.2.686 [facility] [phone] [facility] [address] [place] 2020-06-13 2020-06-13 Outpatient R SHAYLEE [facility] [id number] Univers 09:45:00 09:45:00 DHIRAJ villa [facility] 2020-06-11 2020-06-11 Outpatient R ELVIE FAN [facility] [id number] Univers 09:15:00 09:15:00 akankshay [facility] 2020-06-11 2020-06-11 Telemedici Elvie Fan [facility] 1.2.840.114 [id number] Univers 07:53:33 08:08:33 ne Visit E SPECIALTY 350.1.13.10 ity [place] C[place].7.2.[place] [id number] Ak gumaro EDWARDS [address] [place] [address] 2020-06-10 2020-06-10 OFFICE STLMLC STLMLC [id number] Co mmon 00:00:00 00:00:00 VISIT EST Spir it PT LEVEL 3 - [facility] 2020-05-14 2020-05-14 Office Elvie Fan [facility] 1.2.840.114 [id number] 11:37:54 11:37:54 Visit E SPECIALTY 350.1.13.10 CARE 4.2.7.2.686 CENTER AT [phone] KHOALila [address] [place] [address] 2020-05-14 2020-05-14 Office Elvie Fan [facility] 1.2.840.114 [id number] Univers 11:37:54 11:37:54 Visit E SPECIALTY 350.1.13.10 [place] [id number] Ak paramal GRACE [address] [place] [address] 2020-05-14 2020-05-14 Outpatient R ELVIE FAN [facility] [id number] Univers 11:30:00 11:30:00 ity of [facility] 2020-05-14 2020-05-14 Orders Doctor ADRI 1.2.840.114 [id number] 00:00:00 00:00:00 Only Unassigned, MELBA 350.1.13.10 [place] [facility] 4.2.7.2.686 [id number] 2020-05-14 2020-05-14 Orders Doctor ADRI 1.2.840.114 [id number] Univers 00:00:00 00:00:00 Only Unassigned, MELBA 350.1.13.10 ity of [place] [facility] 4.2.7.2.686 [place] as [id number] [facility] [address] [place] 2020-04-21 2020-04-21 NON-BILLAB STLMLC STLMLC [id number] Common 00:00:00 00:00:00 LE VISIT Spiri t [facility] 2020-04-02 2020-04-02 Prep For Elvie Fan [facility] 1.2.840.114 [id number] Univers 00:00:00 00:00:00 Surgery E SPECIALTY 350.1.13.10 ity of CARE 4.2.7.2.686 [facility] AT [id number] Ak gumaro [place] [address] [facility] 2020-03-26 2020-03-26 Outpatient R ELVIE FAN [facility] [id number] Univers 09:00:00 09:00:00 ity of [facility] 2020-03-26 2020-03-26 Telemedici Elvie Fan [facility] 1.2.840.114 [id number] Univers 08:01:41 08:16:41 ne Visit E SPECIALTY 350.1.13.10 ity of [facility] 4.2.7.2.686 [facility] AT [phone] Ak gumaro [place] [address] [facility] 2020-03-20 2020-03-20 NON-BILLAB STLMLC STLMLC [id number] Common 00:00:00 00:00:00 LE VISIT Spiri t [facility] 2020-03-11 2020-03-11 NON-BILLAB STLMLC STLMLC [id number] Common 00:00:00 00:00:00 LE VISIT Spiri t - [facility] 2020-02-28 2020-02-28 OFFICE STLMLC STLMLC [id number] Co mmon 00:00:00 00:00:00 VISIT EST Spir it PT LEVEL 3 - [facility] 2020-02-18 2020-02-18 (TEL) STLMLC STLMLC [id number] Co mmon 00:00:00 00:00:00 Spirit - [facility] 2020-02-12 2020-02-12 OFFICE STLMLC STLMLC [id number] Co mmon 00:00:00 00:00:00 VISIT Spirit ESTAB PT - CHI LEVEL 4 [facility] 2020-01-30 2020-01-30 Outpatient R ELVIE FAN [facility] [id number] Univers 09:45:00 09:45:00 ity of [facility] 2020-01-30 2020-01-30 Telephone ADRI Davis [id number] Univers 00:00:00 00:00:00 Jocelin REILLY 350.1.13.10 ity of [facility] 4.2.7.2.686 [place] [phone] [address] 2020-01-29 2020-01-29 OFFICE STLMLC STLMLC [id number] Co mmon 00:00:00 00:00:00 VISIT Spirit ESTAB PT - CHI LEVEL 4 [facility] 2020-01-25 2020-01-25 Outpatient R ELVIE FAN [facility] [id number] Univers 14:40:00 14:40:00 ity of [facility] 2020-01-23 2020-01-23 Telemedici Elvie Fan [facility] 1.2.840.1 [id number] Univers 07:42:59 20:30:59 ne Visit E Y HEALTH 350.1.13.10 ity of CLINICS 4.2.7.2.686 [facility] [phone] [facility] [address] [place] 2020-01-23 2020-01-23 Outpatient R ELVIE FAN [facility] [id number] Univers 09:15:00 09:15:00 ity of [facility] 2020-01-23 2020-01-23 (TEL) STLMLC STLMLC [id number] Co mmon 00:00:00 00:00:00 Spirit - [facility] 2020-01-22 2020-01-22 OFFICE STLMLC STLMLC [id number] Co mmon 00:00:00 00:00:00 VISIT TETE Yang it PT LEVEL 4 - [facility] 2020-01-20 2020-01-20 Emergency MorRUST [id number] Univers 14:48:00 16:37:00 Leyda Rodriges 350.1.13.10 ity of [place] 4.2.7.2.686 [facility] [phone] [facility] [address] [place] 2020 2020 Telephone Mita [facility] 1.2.840.114 [id number] Univers 00:00:00 00:00:00 E SPECIALTY 350.1.13.10 ity of CARE 4.2.7.2.686 [facility] AT [phone] Ak gumaro [address] 2020-01-16 2020-01-16 Telephone ClaudioRUST 1.2.840.114 [id number] Univers 00:00:00 00:00:00 Izzy Saldivar [employer] PROGRAMS DIRECTOR 350.1.13.10 it y of [facility] 4.2.7.2.686 [place] as MATERNAL [phone] Med ical & CHILD [address] [place] [address] 2020-01-02 2020-01-02 Office Elvie Fan [facility] 1.2.840.114 [id number] Univers 09:01:49 17:14:00 Visit E SPECIALTY 350.1.13.10 it[place] [id number] Ak gumaro EDWADRS [address] [place] [address] 2020-01-02 2020-01-02 Outpatient R ELVIE FAN [facility] [id number] Univers 09:15:00 09:15:00 ity [facility] 2020-01-02 2020-01-02 Orders Doctor ADRI 1.2.840.114 [id number] Univers 00:00:00 00:00:00 Only Unassigned, MELBA 350.1.13.10 ity of [place] [facility] 4.2.7.2.686 [place] as [id number] [address] 2019-12-05 2019-12-05 Outpatient R ELVIE FAN [facility] [id number] Univers 10:00:00 10:00:00 ity of [facility] 2019-11-23 2019-11-23 Outpatient R ELVIE FAN [facility] [id number] Univers 13:00:00 13:00:00 ity of [facility] 2019-11-23 2019-11-23 Jillian VillanuevaRUST 1.2.627.685 [id number] Univers 11:20:22 11:35:22 Encounter Izzy Saldivar [employer] PROGRAMS DIRECTOR 350.1.13.10 ity of [facility] 4.2.7.2.686 [place] as MATERNAL [phone] Med ical & CHILD [address] [place] [address] 2019-11-23 2019-11-23 Corina VillanuevaRUST [id number] [id number] Univers 10:31:41 11:21:56 Visit Izzy Saldivar [employer] PROGRAMS DIRECTOR 350.1.13.10 it y of [facility] 4.2.7.2.686 [place] as MATERNAL [phone] Med ical & CHILD [address] [place] [address] 2019-11-23 2019-11-23 Outpatient Rebeca VILLANUEVA [facility] [id number] Univers 10:45:00 10:45:00 IZZY valelila [facility] 2019-11-23 2019-11-23 Orders Doctor ADRI 1.2.840.114 [id number] Univers 00:00:00 00:00:00 Only Unassigned, MELBA 350.1.13.10 ity of [place] [facility] 4.2.7.2.686 [place] as [phone] [address] 2019-08-17 2019-08-17 Telemedicbuddy Fan Elvie [facility] 1.2.840.114 [id number] Univers 08:10:51 16:47:26 ne Visit E SPECIALTY 350.1.13.10 ity of [facility] 4.2.7.2.686 [place] AT [id number] [address] 2019-08-17 2019-08-17 Outpatient ELVIE DOOLEY [facility] [id number] Univers 13:15:00 [facility] 2019-08-15 Outpatient R ELVIE FAN [facility] [id number] Univers 10:00:00 10:00:00 daisy [facility] 2019-07-24 2019-07-24 Outpatient Rebeca BAE [facility] [id number] Univers 09:00:00 09:00:00 SAMIA villa [facility] 2019-07-20 2019-07-20 Lilly Herbert [facility] 1.2.840.114 [id number] Univers 09:10:58 09:25:58 ne Visit Adalberto [employer]GR[employer] DIRECTOR 350.1.13.10 i ty of [facility] 4.2.7.2.686 [place] as MATERNAL [phone] Med ical & CHILD [address] [place] [address] 2019-07-20 2019-07-20 Outpatient Rebeca HERBERT [facility] [id number] Univers 09:00:00 09:00:00 ADALBERTO villa [facility] 2019-07-20 2019-07-20 Maryann Bae [facility] [id number] Univers 00:00:00 00:00:00 Samia A SPECIALTY 350.1.13.10 ity of C[place].2.[place] [phone] Ak gumaro EDWARDS [address] [facility] 2019-07-17 2019-07-17 Telephone Alison Torres [facility] 1.2.840.114 [id number] [facility] 00:00:00 00:00:00 [employer] PROGRAMS DIRECTOR 350.1.13.10 it y of REGIONAL 4.2.7.2.686 [place] as MATERNAL [phone] Med ical & CHILD [address] [place] [address] Results Test Description Test Time Test Comments Results Result Comments Source POCT Test 2020-06-17 11:33:00 Test Item Value Reference Range Interpretation Comme nts POCT PREG (test code = 1605) Negative On board controls acceptable with C Line (test code = 3574) Yes POCT PREG LOT # (test code = 3575) POCT PREG TEST DATE (test code = 3576) Lab Interpretation (test code = 15198-6) [facility] K[facility] Right Wo Cont
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
[2022-05-16 04:18] VITALS: BP 143/83; TEMP 98.4; O2SAT 98
--- NOTE | 2022-05-16 20:38 | RAD REPORT ---
EXAM DESCRIPTION: RAD - Wrist Right 3 View - 05/16/2022 3:33 am CLINICAL HISTORY: The patient is 22 years old and is Female; PAIN TECHNIQUE: Frontal, lateral and oblique views of the right hand and wrist. COMPARISON: 08/25/21 right hand radiographs FINDINGS: BONES/JOINTS: Unremarkable. No acute fracture. No dislocation. No subluxation . SOFT TISSUES: Unremarkable. No radiopaque foreign body. IMPRESSION: No acute abnormality of the right hand or wrist. Electronically signed by: Gerardo Mcgill MD 05/16/2022 3:46 AM REGISTERED SALES ASSISTANT Due to temporary technical issues with the PACS/Fluency reporting system, reports are being signed by the in house radiologists without review as a courtesy to insure prompt reporting. The interpreting radiologist is fully responsible for the content of the report.
--- NOTE | 2022-05-16 20:45 | RAD REPORT ---
EXAM DESCRIPTION: RAD - Hand Right 3 View - 05/16/2022 3:31 am CLINICAL HISTORY: The patient is 22 years old and is Female; PAIN TECHNIQUE: Frontal, lateral and oblique views of the right hand and wrist. COMPARISON: 08/25/21 right hand radiographs FINDINGS: BONES/JOINTS: Unremarkable. No acute fracture. No dislocation. No subluxation . SOFT TISSUES: Unremarkable. No radiopaque foreign body. IMPRESSION: No acute abnormality of the right hand or wrist. Electronically signed by: Gerardo Mcgill MD 05/16/2022 3:46 AM UTILIZATION MANAGEMENT MANAGER Due to temporary technical issues with the PACS/Fluency reporting system, reports are being signed by the in house radiologists without review as a courtesy to insure prompt reporting. The interpreting radiologist is fully responsible for the content of the report.
== END 2022-05-16 04:12 | disposition home or self-care (01) ==
LOC: ER 03:06
DX: M79.641 Pain in right hand (principal); M25.531 Pain in right wrist
CPT/HCPCS: 99283

== ENCOUNTER 2022-06-21 07:52 | Emergency (ER) | payer OTHER ==
--- OUTSIDE RECORDS SUMMARY | 2022-06-21 08:10 | XMS REPORT | Continuity of Care Document ---
:2001 Author Organization [facility] t Address [address] [facility] [address] [place] [address] Care Team Providers Name Role Phone ELVIE FAN Attending Clinician Unavailable Elvie Fan MD Attending Clinician DANIS ZHONG Attending Clinician Unavailable Doctor Unassigned, Roxana Attending Clinician Unavailable Randi Manrique RN Attending Clinician Unavailable Only, Adc Test Attending Clinician Unavailable Dhiraj June MD Attending Clinician DHIRAJ JUNE Attending Clinician Unavailable Jocelin Davis MD Attending Clinician Leyda Wang Attending Clinician Izzy Chase Attending Clinician IZZY VILLANUEVA Attending Clinician Unavailable SAMIA BAE Attending Clinician Unavailable Adalberto Mendes Attending Clinician ADALBERTO HERBERT Attending Clinician Unavailable Samia Bae MD Attending Clinician Alison Esparza Attending Clinician ELVIE FAN Admitting Clinician Unavailable Elvie Fan MD Admitting Clinician Payers Payer Name Policy Type Policy Number Effective Date Expiration Date [facility] [id number] 2016 HEALTH CHOICE 00:00:00 MEDICAID [facility] [id number] [facility] [id number] [facility] [id number] [facility] [id number] [facility] [id number] [facility] [id number] [facility] [id number] [facility] [id number] [facility] [id number] [facility] [id number] [facility] [id number] [facility] - [facility] Problems Condition Condition Condition Status Onset Resolution Last Treating Co mments Source Name Details Category Date Date Treatment Clinician Date Morbid Morbid Disease Active Univers obesity obesity 3 [place] of with [place] mass index 00 Me dical of of Branch 40.0-49.9 40.0-49.9 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 Overview : Univers a a 2-17 Added ity of 00:00: automatic [place] 00 ally from Medical request Branch for surgery [id number] 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 [...] risk Disease Active Uni vers homosexual homosexual 8-07 it y of behavior behavior 00:00: [place] [...] Active Univers ALLERGIE Class ity of [facility] Social History Social Habit Start Date Stop Date Quantity Comments Source History of [facility] - Tobacco Use [facility] Sex Assigned At [facility] [place] [facility] Exposure to Not sure University of SARS-CoV-2 [facility] (event) [place] Tobacco use and 2020-08-20 2020-08-20 Never used Universit y of exposure 00:00:00 00:00:00 [facility] Alcohol intake 2020-08-20 2020-08-20 Current University of 00:00:00 00:00:00 non-drinker of [facility] alcohol [place] (finding) Tobacco Comment 2016-06-09 2016-06-09 step father Universi ty of 00:00:00 00:00:00 smokes outside [facility] Smoking Status Start Date Stop Date Source Never Smoker [facility] Medications Ordered Filled Start Stop Current Ordering Indication Dosage Frequency Signature Comments Components Source Medication Medication Date Date Medication? Clinician (SIG) Name Name silver Yes [id number] Apply to Uni vers sulfADIAZIN 3-24 area(s) 2 ity of E 00:00: (two) [place] (SILVADENE) 00 times Medical 1 % cream daily. Branch silver Yes [id number] Apply to Uni vers sulfADIAZIN 3-24 area(s) 2 ity of E 00:00: (two) [place] (SILVADENE) 00 times Medical 1 % cream daily. Branch silver 2020-0 Yes [id number] Apply to Uni vers sulfADIAZIN 3-24 area(s) 2 ity of E 00:00: (two) [place] (SILVADENE) 00 times Medical 1 % cream daily. Branch silver 2020-0 Yes [id number] Apply to Uni vers sulfADIAZIN 3-24 area(s) 2 ity of E 00:00: (two) [place] (SILVADENE) 00 times Medical 1 % cream daily. Branch silver Yes [id number] Apply to Uni vers sulfADIAZIN 3-24 area(s) 2 ity of E 00:00: (two) [place] (SILVADENE) 00 times Medical 1 % cream daily. Branch silver 2020-0 Yes [id number] Apply to Uni vers sulfADIAZIN 3-24 area(s) 2 ity of E 00:00: (two) [place] (SILVADENE) 00 times Medical 1 % cream daily. Branch silver 2020-0 Yes [id number] Apply to Uni vers sulfADIAZIN 3-24 area(s) 2 ity of E 00:00: (two) [place] (SILVADENE) 00 times Medical 1 % cream daily. Branch silver 2020-0 Yes [id number] Apply to Uni vers sulfADIAZIN 3-24 area(s) [...] A SERVICE-HY DROMORPHON E INJECTIONS FENTanyl PF 2020- Yes 25ug 25 mcg, Uni vers (SUBLIMAZE 3-02 Slow IV ity of (PF)) 17:41: Push, [place] injection 09 Q5MIN PRN, Medi harvey 25 mcg 4 doses, Branch Starting Tue06/17/20 at 1141, Until Discontinu ed, Routine, Pain (scale 4-6), PACU ondansetron 0 Yes 4mg 4 mg, Slow Univers (ZOFRAN 3-02 IV Push, ity of (PF)) 17:41: PRN, 1 [place] injection 4 09 dose, Medical mg Starting Branch Tue06/17/20 at 1141, Until Discontinu ed, Routine, Nausea and Vomiting (N/V), PACU gentian 2020-0 Yes PRN, Univers shelly 1 % 3-02 Starting ity o f solution 15:28: Tue06/17/20 [place] 00 at 0928, Medical Until [place] Discontinu ed, Routine, Intra-op bupivacaine Yes PRN, [...] 1 [place] mg 00 :00 dose, [facility] 06/17/20 at Branch 0530, Routine, DSU Pre-op ceFAZolin No 2000mg 2 g (2,000 Univers in dextrose 06-17 mg), IV ity of (iso-os) 11:30: 12:56 [place] (ANCEF) 2 00 :00 ONCE, 1 Medical gram/100 mL dose, [facility] Piggyback 2 06/17/20 at g 0530, 100 mL, DSU Pre-op
Reason for Anti-Infec tive: Surgical Prophylaxi s
Surgi harvey Prophylaxi s: Other (see Comments)< br>Duratio n of therapy: within 24 hours of surgery lactated No 1000mL at 42 Unive rs ringers IV 06-1702 mL/hr, ity of infusion 11:30: 11:48 1,000 mL, [place] 1,000 mL 00 :00 IV Medical Infusion, [place] ONCE, 1 dose, [facility] 06/17/20 at 0530, Routine, DSU Pre-op gabapentin 2020- No 600mg Take 1 Uni vers 600 mg 06-1717 tablet by ity of tablet 00:00: 04:59 mouth 3 [place] 00 :00 (three) Medical times [place] daily for 14 days. gabapentin 2020- No 600mg Take 1 Uni vers 600 mg 06-17- tablet by ity of tablet 00:00: 04:59 mouth 3 [place] 00 :00 (three) Medical times Branch daily for 14 days. gabapentin 2020- No 600mg Take 1 Uni vers 600 mg -05 21-17 tablet by ity of tablet 00:00: 04:59 mouth 3 [place] 00 :00 (three) Medical times Branch daily for 14 days. gabapentin 2020-2020- No 600mg Take 1 Uni vers 600 mg 06-17- tablet by ity of tablet 00:00: 04:59 mouth 3 [place] 00 :00 (three) Medical times Branch daily for 14 days. chlorhexidi Yes [id number] Apply to Univers ne 4 % 2-24 area(s) ity of external 00:00: once daily [place] liquid 00 as needed Medical for Wound Branch care. chlorhexidi 2020-0 Yes [id number] Apply to Univers ne 4 % 2-24 area(s) ity of external 00:00: once daily [place] liquid 00 as needed Medical for Wound Branch care. chlorhexidi 0 Yes [id number] Apply to Univers ne 4 % 2-24 area(s) ity of external 00:00: once daily [place] liquid 00 as needed Medical for Wound Branch care. chlorhexidi 0 Yes [id number] Apply to Univers ne 4 % 2-24 area(s) ity of external 00:00: once daily [place] liquid 00 as needed Medical for Wound Branch care. chlorhexidi 0 Yes [id number] Apply to Univers ne 4 % 2-24 area(s) ity of external 00:00: once daily [place] liquid 00 as needed Medical for Wound Branch care. gabapentin 2020- No [id number] 600mg Take 1 Univers ER 600 mg 2-24 03-11 tablet by ity of tablet, 00:00: 05:59 mouth [place] extended 00 :00 every 8 Medical release 24 (eight) Branch hr hours for 14 days. acetaminoph 2020-2020- No [id number] 1000mg Take 2 Univers en (TYLENOL 2-24 03-11 tablets by i ty of EXTRA 00:00: 05:59 mouth [place] STRENGTH) 00 :00 every 8 Medical 500 mg (eight) Branch tablet hours for 14 days. celecoxib 2020- No [id number] 200mg Take 1 Univers (CELEBREX) 224 03-11 capsule by it y of 200 mg 00:00: 05:59 mouth 2 [place] capsule 00 :00 (two) Medical times Branch daily with meals for 14 days. gabapentin 2020-2020- No [id number] 600mg Take 1 Univers ER 600 mg 224 03-11 tablet by ity of tablet, 00:00: 05:59 mouth [place] extended 00 :00 every 8 Medical release 24 (eight) Branch hr hours for 14 days. acetaminoph 2020- No [id number] 1000mg Take 2 Univers en (TYLENOL 2-24 03-11 tablets by i ty of EXTRA 00:00: 05:59 mouth [place] STRENGTH) 00 :00 every 8 Medical 500 mg (eight) Branch tablet hours for 14 days. celecoxib 2020-2020- No [id number] 200mg Take 1 Univers (CELEBREX) 2 03-11 capsule by it y of 200 mg 00:00: 05:59 mouth 2 [place] capsule 00 :00 (two) Medical times Branch daily with meals for 14 days. gabapentin 2020-2020- No [id number] 600mg Take 1 Univers ER 600 mg 2 03-11 tablet by ity of tablet, 00:00: 05:59 mouth [place] extended 00 :00 every 8 Medical release 24 (eight) Branch hr hours for 14 days. acetaminoph 2020- No [id number] 1000mg Take 2 Univers en (TYLENOL 224 03-11 tablets by i ty of EXTRA 00:00: 05:59 mouth [place] STRENGTH) 00 :00 every 8 Medical 500 mg (eight) Branch tablet hours for 14 days. celecoxib 2020-2020- No [id number] 200mg Take 1 Univers (CELEBREX) 2-24 03-11 capsule by it y of 200 mg 00:00: 05:59 mouth 2 [place] capsule 00 :00 (two) Medical times Branch daily with meals for 14 days. gabapentin 2020-2020- No [id number] 600mg Take 1 Univers ER 600 mg 2-24 03-11 tablet by ity of tablet, 00:00: 05:59 mouth [place] extended 00 :00 every 8 Medical release 24 (eight) Branch hr hours for 14 days. acetaminoph 2020- No [id number] 1000mg Take 2 Univers en (TYLENOL 2-24 03-11 tablets by i ty of EXTRA 00:00: 05:59 mouth [place] STRENGTH) 00 :00 every 8 Medical 500 mg (eight) Branch tablet hours for 14 days. celecoxib 2020- No [id number] 200mg Take 1 Univers (CELEBREX) 2-24 03-11 capsule by it y of 200 mg 00:00: 05:59 mouth 2 [place] capsule 00 :00 (two) Medical times Branch daily with meals for 14 days. gabapentin 2020- No [id number] 600mg Take 1 Univers ER 600 mg 2-24 03-11 tablet by ity of tablet, 00:00: 05:59 mouth [place] extended 00 :00 every 8 Medical release 24 (eight) Branch hr hours for 14 days. acetaminoph 2020- No [id number] 1000mg Take 2 Univers en (TYLENOL 2-24 03-11 tablets by i ty of EXTRA 00:00: 05:59 mouth [place] STRENGTH) 00 :00 every 8 Medical 500 mg (eight) Branch tablet hours for 14 days. celecoxib 2020- No [id number] 200mg Take 1 Univers (CELEBREX) 2 03-11 capsule by it y of 200 mg 00:00: 05:59 mouth 2 [place] capsule 00 :00 (two) Medical times Branch daily with meals for 14 days. gabapentin 2020- No [id number] 600mg Take 1 Univers ER 600 mg 2 03-11 tablet by ity of tablet, 00:00: 05:59 mouth [place] extended 00 :00 every 8 Medical release 24 (eight) Branch hr hours for 14 days. acetaminoph 2020- No [id number] 1000mg Take 2 Univers en (TYLENOL 2-24 03-11 tablets by i ty of EXTRA 00:00: 05:59 mouth [place] STRENGTH) 00 :00 every 8 Medical 500 mg (eight) Branch tablet hours for 14 days. celecoxib 2020- No [id number] 200mg Take 1 Univers (CELEBREX) 2-24 03-11 capsule by it y of 200 mg 00:00: 05:59 mouth 2 [place] capsule 00 :00 (two) Medical times Branch daily with meals for 14 days. acetaminoph 2020- No [id number] 1000mg Take 2 Univers en (TYLENOL 2-24 03-11 tablets by i ty of EXTRA 00:00: 05:59 mouth [place] STRENGTH) 00 :00 every 8 Medical 500 mg (eight) Branch tablet hours for 14 days. celecoxib 2020- No [id number] 200mg Take 1 Univers (CELEBREX) 2-24 03-11 capsule by it y of 200 mg 00:00: 05:59 mouth 2 [place] capsule 00 :00 (two) Medical times Branch daily with meals for 14 days. acetaminoph 2020- No [id number] 1000mg Take 2 Univers en (TYLENOL 2-24 03-11 tablets by i ty of EXTRA 00:00: 05:59 mouth [place] STRENGTH) 00 :00 every 8 Medical 500 mg (eight) Branch tablet hours for 14 days. celecoxib 2020- No [id number] 200mg Take 1 Univers (CELEBREX) 2-24 03-11 capsule by it y of 200 mg 00:00: 05:59 mouth 2 [place] capsule 00 :00 (two) Medical times Branch daily with meals for 14 days. acetaminoph 2020- No [id number] 1000mg Take 2 Univers en (TYLENOL 2-24 03-11 tablets by i ty of EXTRA 00:00: 05:59 mouth [place] STRENGTH) 00 :00 every 8 Medical 500 mg (eight) Branch tablet hours for 14 days. celecoxib 2020- No [id number] 200mg Take 1 Univers (CELEBREX) 2-24 03-11 capsule by it y of 200 mg 00:00: 05:59 mouth 2 [place] capsule 00 :00 (two) Medical times Branch daily with meals for 14 days. acetaminoph 2020- No [id number] 1000mg Take 2 Univers en (TYLENOL 2-24 03-11 tablets by i ty of EXTRA 00:00: 05:59 mouth [place] STRENGTH) 00 :00 every 8 Medical 500 mg (eight) Branch tablet hours for 14 days. celecoxib 2020- No [id number] 200mg Take 1 Univers (CELEBREX) 2-24 03-11 capsule by it y of 200 mg 00:00: 05:59 mouth 2 [place] capsule 00 :00 (two) Medical times Branch daily with meals for 14 days. chlorhexidi 2020- No [id number] Apply to Univers ne 4 % 06-11 area(s) ity of external 00:00: 00:00 once daily [place] liquid 00 :00 as needed Medical for Wound Branch care. gabapentin 2020- No [id number] 600mg Take 1 Univers ER 600 mg 06-11 tablet by ity of tablet, 00:00: 00:00 mouth [place] extended 00 :00 every 8 Medical release 24 (eight) Branch hr hours for 14 days. scopolamine 2020- No [id number] 1.5mg Apply 1 Univers transdermal 06-11- Patch to ity of 1 mg over 3 00:00: 05:59 area(s) [place] days patch 00 :00 every 72 Medic al (seventy-t Branch wo) hours for 3 days. scopolamine 2020- No [id number] 1.5mg Apply 1 Univers transdermal 06-11- Patch to ity of 1 mg over 3 00:00: 05:59 area(s) [place] days patch 00 :00 every 72 Medic al (seventy-t Branch wo) hours for 3 days. scopolamine 2020- No [id number] 1.5mg Apply 1 Univers transdermal 06-11 Patch to ity of 1 mg over [...] Pain (scale 4-6). Mobic 7.5 Mobic 7.5 2019-04- No 1{table QD Mobic 7.5 MG MG 0-27 11-25 t} MG 00:00: 00:00 00 :00 Mobic 7.5 Mobic 7.5 2019-04 2020- No 1{table QD Mobic 7.5 MG MG 0-27 11-25 t} MG 00:00: 00:00 00 :00 Mobic 7.5 Mobic 7.5 2019-04 2020- No 1{table QD Mobic 7.5 MG MG 0-27 11-25 t} MG 00:00: 00:00 00 :00 acetaminoph 2020-1 2020- No 1000mg 1,000 mg, Univers en 0-04 10-04 Oral, ity of (TYLENOL) 21:00: 20:01 ONCE, 1 [place] tablet 00 :00 dose, [facility] 1,000 mg 01/20/20 at [facility] h 1600, [place] traMADoL 50 [...] Indication s: acute pain ibuprofen 2019-04- No [id number] 800mg Take 1 Univers 800 mg 0-04 10-04 tablet by ity of tablet 00:00: 00:00 mouth [place] 00 :00 every 8 Medical (eight) Branch hours as needed for Pain (scale 4-6) for up to 30 doses. ibuprofen 2020-0 Yes [id number] 800mg Take 1 U nivers 800 mg 4-03 tablet by ity of tablet 00:00: mouth [place] 00 every 8 Medical (eight) Branch hours. ibuprofen 2020-0 Yes [id number] 800mg Take 1 U nivers 800 mg 4-03 tablet by ity of tablet 00:00: mouth [place] 00 every 8 Medical (eight) Branch hours. ibuprofen 2020-0 Yes [id number] 800mg Take 1 U nivers 800 mg 4-03 tablet by ity of tablet 00:00: mouth [place] 00 every 8 Medical (eight) Branch hours. ibuprofen 2020-0 Yes [id number] 800mg Take 1 U nivers 800 mg 4-03 tablet by ity of tablet 00:00: mouth [place] 00 every 8 Medical (eight) Branch hours. ibuprofen 2020-0 Yes [id number] 800mg Take 1 U nivers 800 mg 4-03 tablet by ity of tablet 00:00: mouth [place] 00 every 8 Medical (eight) Branch hours. ibuprofen 2020-0 Yes [id number] 800mg Take 1 U nivers 800 mg 4-03 tablet by ity of tablet 00:00: mouth [place] 00 every 8 Medical (eight) Branch hours. ibuprofen 2020-0 Yes [id number] 800mg Take 1 U nivers 800 mg 4-03 tablet by ity of tablet 00:00: mouth [place] 00 every 8 Medical (eight) Branch hours. ibuprofen 2020-0 Yes [id number] 800mg Take 1 U nivers 800 mg 4-03 tablet by ity of tablet 00:00: mouth [place] 00 every 8 Medical (eight) Branch hours. ibuprofen 2020-0 Yes [id number] 800mg Take 1 U nivers 800 mg 4-03 tablet by ity of tablet 00:00: mouth [place] 00 every 8 Medical (eight) Branch hours. ibuprofen 2020-0 2020- No [id number] 800mg Take 1 Univers 800 mg 4-03 09-16 tablet by ity of tablet 00:00: 00:00 mouth [place] 00 :00 every 8 Medical (eight) Branch hours. ibuprofen 2020-0 2020- No [id number] 800mg Take 1 Univers 800 mg 4-03 09-16 tablet by ity of tablet 00:00: 00:00 mouth [place] 00 :00 every 8 Medical (eight) Branch hours. ibuprofen 2019- 2020- No [id number] 800mg Take 1 Univers 800 mg 4-03 09-16 tablet by ity of tablet 00:00: 00:00 mouth [place] 00 :00 every 8 Medical (eight) Branch hours. ibuprofen 2020- No [id number] 800mg Take 1 Univers 800 mg 4-03 09-16 tablet by ity of tablet 00:00: 00:00 mouth [place] 00 :00 every 8 Medical (eight) Branch hours. traMADOL 50 2018- Yes [id number] 50mg Take 1 Univers mg tablet 6-03 tablet by ity o f 00:00: mouth [place] 00 every 6 Medical (six) Branch hours as needed for Pain (scale 4-6). ibuprofen Yes [id number] 800mg Take 1 U nivers 800 mg 6-03 tablet by ity of tablet 00:00: mouth [place] 00 every 8 Medical (eight) Branch hours. traMADOL 50 2020- No [id number] 50mg Take 1 Univers mg tablet 6-03 04-03 tablet by ity of 00:00: 00:00 mouth [place] 00 :00 every 6 Medical (six) Branch hours as needed for Pain (scale 4-6). ibuprofen 2018- 2020- No [id number] 800mg Take 1 Univers 800 mg 6-03 04-03 tablet by ity of tablet 00:00: 00:00 mouth [place] 00 :00 every 8 Medical (eight) Branch hours. traMADOL 50 2018-0 2020- No [id number] 50mg Take 1 Univers mg tablet 6-03 04-03 tablet by ity of 00:00: 00:00 mouth [place] 00 :00 every 6 Medical (six) Branch hours as needed for Pain (scale 4-6). ibuprofen 2020- No [id number] 800mg Take 1 Univers 800 mg 6-03 04-03 tablet by ity of tablet 00:00: 00:00 mouth [place] 00 :00 every 8 Medical (eight) Branch hours. Dextrometho Yes [id number] 10mL Take 10 mL Univers rphan-Guaif 2-12 by mouth 2 it y of enesin 00:00: (two) [place] (DELSYM 00 times Medical COUGH-CHEST daily. Branch CONGEST DM) 5-100 mg/5 mL Liqd Dextrometho 2019- No [id number] 10mL Take 10 mL Univers rpbekah-Onelf 05-30 by mouth 2 i ty of enesin 00:00: 00:00 (two) [place] (DELSY 00 :00 times Medical COUGH-CHEST daily. Branch CONGEST DM) 5-100 mg/5 mL Liqd Dextrometho 2019- No [id number] 10mL Take 10 mL Univers rpbekah-Julianaif 05-30 by mouth 2 i ty of enesin 00:00: 00:00 (two) [place] (DELSYM 00 :00 times Medical COUGH-CHEST daily. Branch CONGEST DM) 5-100 mg/5 mL Liqd Ibuprofen Ibuprofen No Ibuprofen Common [facility] No known No Univers medications [facility] No known No Univers medications [facility] No known No Univers medications [facility] No known No Univers medications [facility] Hydrocodone Hydrocodone No Hydrocodon Common -Acetaminop -[facility] Tramadol No Tramadol Com mon HCl HCl HCl [facility] Tramadol Tramadol No Tramadol HCl HCl HCl [...] y of Vaccine Quad IM 3+ 00:00:00 [facility] Meningococcal B, OMV 2017-05-25 Completed Univ ersity of 00:00:00 [facility] Meningococcal 2017-05-25 Completed University of Polysaccharide 00:00:00 [place] Medi harvey (groups A, C, Y and Branc h W-135) conjugate vaccine (MCV4P) Influenza Virus 2017-05-25 Completed Universit y of Vaccine Quad IM 3+ 00:00:00 [facility] Meningococcal B, OMV 2017-05-25 Completed Univ ersity of 00:00:00 [facility] Meningococcal 2017-05-25 Completed University of Polysaccharide 00:00:00 [place] Medi har[facility] (groups A, C, Y and Branc h W-135) conjugate vaccine (MCV4P) Influenza Virus 2017-05-25 Completed Universit y of Vaccine Quad IM 3+ 00:00:00 [facility] Meningococcal B, OMV 2017-05-25 Completed Univ ersity of 00:00:00 [facility] Meningococcal 2017-05-25 Completed University of Polysaccharide 00:00:00 [place] [facility] (groups A, C, Y and Branc h W-135) conjugate vaccine (MCV4P) Meningococcal 2017-05-25 Completed University of Polysaccharide 00:00:00 [place] [facility] (groups A, C, Y and Branc h W-135) conjugate vaccine (MCV4P) Influenza Virus 2017-05-25 Completed Universit y of Vaccine Quad IM 3+ 00:00:00 [facility] Meningococcal B, OMV 2017-05-25 Completed Univ ersity of 00:00:00 [facility] Influenza Virus 2017-05-25 Completed Universit y of Vaccine Quad IM 3+ 00:00:00 [facility] Meningococcal B, OMV 2017-05-25 Completed Univ ersity of 00:00:00 [facility] Meningococcal 2017-05-25 Completed University of Polysaccharide 00:00:00 [place] Medi [facility] (groups A, C, Y and Branc h W-135) conjugate vaccine (MCV4P) Influenza Virus 2017-05-25 Completed Universit y of Vaccine Quad IM 3+ 00:00:00 [facility] Meningococcal B, OMV 2017-05-25 Completed Univ ersity of 00:00:00 [facility] Meningococcal 2017-05-25 Completed University of Polysaccharide 00:00:00 [place] Medi harvey (groups A, C, Y and Branc h W-135) conjugate vaccine (MCV4P) Influenza Virus 2017-05-25 Completed Universit y of Vaccine Quad IM 3+ 00:00:00 [facility] Meningococcal B, OMV 2017-05-25 Completed Univ ersity of 00:00:00 [facility] Meningococcal 2017-05-25 Completed University of Polysaccharide 00:00:00 [place] Medi har[facility] (groups A, C, Y and Branc h W-135) conjugate vaccine (MCV4P) Influenza Virus 2017-05-25 Completed Universit y of Vaccine Quad IM 3+ 00:00:00 [facility] Meningococcal B, OMV 2017-05-25 Completed Univ ersity of 00:00:00 [facility] Meningococcal 2017-05-25 Completed University of Polysaccharide 00:00:00 [place] Medi har[facility] (groups A, C, Y and Branc h W-135) conjugate vaccine (MCV4P) Influenza Virus 2017-05-25 Completed Universit y of Vaccine Quad IM 3+ 00:00:00 [facility] Meningococcal B, OMV 2017-05-25 Completed Univ ersity of 00:00:00 [facility] Meningococcal 2017-05-25 Completed University of Polysaccharide 00:00:00 [place] Medi harvey (groups A, C, Y and Branc h W-135) conjugate vaccine (MCV4P) Influenza Virus 2017-05-25 Completed Universit y of Vaccine Quad IM 3+ 00:00:00 [facility] Meningococcal B, OMV 2017-05-25 Completed Univ ersity of 00:00:00 [facility] Meningococcal 2017-05-25 Completed University of Polysaccharide 00:00:00 [place] Medi harvey (groups A, C, Y and Branc h W-135) conjugate vaccine (MCV4P) Influenza Virus 2017-05-25 Completed Universit y of Vaccine Quad IM 3+ 00:00:00 [facility] Meningococcal B, OMV 2017-05-25 Completed Univ ersity of 00:00:00 [facility] Meningococcal 2017-05-25 Completed University of Polysaccharide 00:00:00 [place] Medi harvey (groups A, C, Y and Branc h W-135) conjugate vaccine (MCV4P) Influenza Virus 2017-05-25 Completed Universit y of Vaccine Quad IM 3+ 00:00:00 [facility] Meningococcal B, OMV 2017-05-25 Completed Univ ersity of 00:00:00 [facility] Meningococcal 2017-05-25 Completed University of Polysaccharide 00:00:00 [place] Medi harvey (groups A, C, Y and Branc h W-135) conjugate vaccine (MCV4P) Influenza Virus 2017-05-25 Completed Universit y of Vaccine Quad IM 3+ 00:00:00 [facility] Meningococcal B, OMV 2017-05-25 Completed Univ ersity of 00:00:00 [facility] Meningococcal 2017-05-25 Completed University of Polysaccharide 00:00:00 [place] Medi harvey (groups A, C, Y and Branc h W-135) conjugate vaccine (MCV4P) Influenza Virus 2017-05-25 Completed Universit y of Vaccine Quad IM 3+ 00:00:00 [facility] Meningococcal B, OMV 2017-05-25 Completed Univ ersity of 00:00:00 [facility] Meningococcal 2017-05-25 Completed University of Polysaccharide 00:00:00 [place] Medi harvey (groups A, C, Y and Branc h W-135) conjugate vaccine (MCV4P) Influenza Virus 2017-05-25 Completed Universit y of Vaccine Quad IM 3+ 00:00:00 [facility] Meningococcal B, OMV 2017-05-25 Completed [facility] 00:00:00 [facility] Meningococcal 2017-05-25 Completed [facility] Polysaccharide 00:00:00 [facility] (groups A, C, Y and Branc h W-135) conjugate vaccine (MCV4P) Influenza Virus 2017-05-25 Completed [facility] Vaccine Quad IM 3+ 00:00:00 [facility] Meningococcal B, OMV 2017-05-25 Completed [facility] 00:00:00 [facility] Meningococcal 2017-05-25 Completed [facility] Polysaccharide 00:00:00 [facility] (groups A, C, Y and Branc h W-135) conjugate vaccine (MCV4P) Influenza Virus 2017-05-25 Completed [facility] Vaccine Quad IM 3+ 00:00:00 [facility] Meningococcal B, OMV 2017-05-25 Completed [facility] 00:00:00 [facility] Meningococcal 2017-05-25 Completed [facility] Polysaccharide 00:00:00 [facility] (groups A, C, Y and Branc h W-135) conjugate vaccine (MCV4P) Influenza Virus 2017-05-25 Completed [facility] Vaccine Quad IM 3+ 00:00:00 [facility] Meningococcal B, OMV 2017-05-25 Completed [facility] 00:00:00 [facility] Meningococcal 2017-05-25 Completed [facility] Polysaccharide 00:00:00 [facility] (groups A, C, Y and Branc h W-135) conjugate vaccine (MCV4P) Influenza Virus 2017-05-25 Completed [facility] Vaccine Quad IM 3+ 00:00:00 [facility] Meningococcal B, OMV 2017-05-25 Completed [facility] 00:00:00 [facility] Meningococcal 2017-05-25 Completed [facility] Polysaccharide 00:00:00 [facility] (groups A, C, Y and Branc h W-135) conjugate vaccine (MCV4P) Influenza Virus 2017-05-25 Completed [facility] Vaccine Quad IM 3+ 00:00:00 [facility] Meningococcal B, OMV 2017-05-25 Completed [facility] 00:00:00 [facility] Meningococcal 2017-05-25 Completed [facility] Polysaccharide 00:00:00 [facility] (groups A, C, Y and Branc h W-135) conjugate vaccine (MCV4P) Influenza Virus 2017-05-25 Completed [facility] Vaccine Quad IM 3+ 00:00:00 [facility] Meningococcal B, OMV 2017-05-25 Completed [facility] 00:00:00 [facility] Meningococcal 2017-05-25 Completed [facility] Polysaccharide 00:00:00 [facility] (groups A, C, Y and Branc h W-135) conjugate vaccine (MCV4P) Influenza Virus 2017-05-25 Completed [facility] Vaccine Quad IM 3+ 00:00:00 [facility] Meningococcal B, OMV 2017-05-25 Completed [facility] 00:00:00 [facility] Meningococcal 2017-05-25 Completed [facility] Polysaccharide 00:00:00 [facility] (groups A, C, Y and Branc h W-135) conjugate vaccine (MCV4P) Influenza Virus 2017-05-25 Completed [facility] Vaccine Quad IM 3+ 00:00:00 [facility] Meningococcal B, OMV 2017-05-25 Completed [facility] 00:00:00 [facility] Meningococcal 2017-05-25 Completed [facility] Polysaccharide 00:00:00 [facility] (groups A, C, Y and Branc h W-135) conjugate vaccine (MCV4P) Influenza Virus 2017-05-25 Completed [facility] Vaccine Quad IM 3+ 00:00:00 [facility] Meningococcal B, OMV 2017-05-25 Completed [facility] 00:00:00 [facility] Meningococcal 2017-05-25 Completed [facility] Polysaccharide 00:00:00 [facility] (groups A, C, Y and Branc h W-135) conjugate vaccine (MCV4P) Influenza Virus 2017-05-25 Completed [facility] Vaccine Quad IM 3+ 00:00:00 [facility] Meningococcal B, OMV 2017-05-25 Completed [facility] 00:00:00 [facility] Meningococcal 2017-05-25 Completed [facility] Polysaccharide 00:00:00 [facility] (groups A, C, Y and Branc h W-135) conjugate vaccine (MCV4P) Influenza Virus 2017-05-25 Completed [facility] Vaccine Quad IM 3+ 00:00:00 [facility] Meningococcal B, OMV 2017-05-25 Completed [facility] 00:00:00 [facility] Meningococcal 2017-05-25 Completed [facility] Polysaccharide 00:00:00 [facility] (groups A, C, Y and Branc h W-135) conjugate vaccine (MCV4P) Influenza Virus 2017-05-25 Completed [facility] Vaccine Quad IM 3+ 00:00:00 [facility] Meningococcal B, OMV 2017-05-25 Completed [facility] 00:00:00 [facility] Meningococcal 2017-05-25 Completed [facility] Polysaccharide 00:00:00 [facility] (groups A, C, Y and Branc h W-135) conjugate vaccine (MCV4P) Influenza Virus 2017-05-25 Completed [facility] Vaccine Quad IM 3+ 00:00:00 [facility] Meningococcal B, OMV 2017-05-25 Completed [facility] 00:00:00 [facility] Meningococcal 2017-05-25 Completed [facility] Polysaccharide 00:00:00 [facility] (groups A, C, Y and Branc h W-135) conjugate vaccine (MCV4P) Influenza Virus 2017-05-25 Completed [facility] Vaccine Quad IM 3+ 00:00:00 [facility] Meningococcal B, OMV 2017-05-25 Completed [facility] 00:00:00 [facility] Meningococcal 2017-05-25 Completed [facility] Polysaccharide 00:00:00 [facility] (groups A, C, Y and Branc h W-135) conjugate vaccine (MCV4P) Influenza Virus 2017-05-25 Completed [facility] Vaccine Quad IM 3+ 00:00:00 [facility] Meningococcal B, OMV 2017-05-25 Completed [facility] 00:00:00 [facility] Meningococcal 2017-05-25 Completed [facility] Polysaccharide 00:00:00 [facility] (groups A, C, Y and Branc h W-135) conjugate vaccine (MCV4P) Influenza Virus 2017-05-25 Completed [facility] Vaccine Quad IM 3+ 00:00:00 [facility] Meningococcal B, OMV 2017-05-25 Completed [facility] 00:00:00 [facility] Meningococcal 2017-05-25 Completed [facility] Polysaccharide 00:00:00 [facility] (groups A, C, Y and Branc h W-135) conjugate vaccine (MCV4P) Influenza Virus 2017-05-25 Completed [facility] Vaccine Quad IM 3+ 00:00:00 [facility] Meningococcal B, OMV 2017-05-25 Completed [facility] 00:00:00 [facility] Meningococcal 2017-05-25 Completed [facility] Polysaccharide 00:00:00 [facility] (groups A, C, Y and Branc h W-135) conjugate vaccine (MCV4P) Influenza Virus 2017-05-25 Completed [facility] Vaccine Quad IM 3+ 00:00:00 [facility] Meningococcal B, OMV 2017-05-25 Completed [facility] 00:00:00 [facility] Meningococcal 2017-05-25 Completed [facility] Polysaccharide 00:00:00 [facility] (groups A, C, Y and Branc h W-135) conjugate vaccine (MCV4P) Influenza Virus 2017-05-25 Completed [facility] Vaccine Quad IM 3+ 00:00:00 [facility] Meningococcal B, OMV 2017-05-25 Completed [facility] 00:00:00 [facility] Meningococcal 2017-05-25 Completed [facility] Polysaccharide 00:00:00 [facility] (groups A, C, Y and Branc h W-135) conjugate vaccine (MCV4P) Influenza Virus 2017-05-25 Completed [facility] Vaccine Quad IM 3+ 00:00:00 [facility] Meningococcal B, OMV 2017-05-25 Completed [facility] 00:00:00 [facility] Meningococcal 2017-05-25 Completed [facility] Polysaccharide 00:00:00 [facility] (groups A, C, Y and Branc h W-135) conjugate vaccine (MCV4P) Influenza Virus 2017-05-25 Completed [facility] Vaccine Quad IM 3+ 00:00:00 [facility] Meningococcal B, OMV 2017-05-25 Completed [facility] 00:00:00 [facility] Meningococcal 2017-05-25 Completed [facility] Polysaccharide 00:00:00 [facility] (groups A, C, Y and Branc h W-135) conjugate vaccine (MCV4P) Influenza Virus 2017-05-25 Completed [facility] Vaccine Quad IM 3+ 00:00:00 [facility] Meningococcal B, OMV 2017-05-25 Completed [facility] 00:00:00 [facility] Meningococcal 2017-05-25 Completed [facility] Polysaccharide 00:00:00 [facility] (groups A, C, Y and Branc h W-135) conjugate vaccine (MCV4P) Influenza Virus 2017-05-25 Completed [facility] Vaccine Quad IM 3+ 00:00:00 [facility] Meningococcal B, OMV 2017-05-25 Completed [facility] 00:00:00 [facility] Meningococcal 2017-05-25 Completed [facility] Polysaccharide 00:00:00 [facility] (groups A, C, Y and Branc h W-135) conjugate vaccine (MCV4P) Influenza Virus 2017-05-25 Completed [facility] Vaccine Quad IM 3+ 00:00:00 [facility] Meningococcal B, OMV 2017-05-25 Completed [facility] 00:00:00 [facility] Meningococcal 2017-05-25 Completed [facility] Polysaccharide 00:00:00 [facility] (groups A, C, Y and Branc h W-135) conjugate vaccine (MCV4P) Influenza Virus 2017-05-25 Completed [facility] Vaccine Quad IM 3+ 00:00:00 [facility] Meningococcal B, OMV 2017-05-25 Completed [facility] 00:00:00 [facility] Meningococcal 2017-05-25 Completed [facility] Polysaccharide 00:00:00 [facility] (groups A, C, Y and Branc h W-135) conjugate vaccine (MCV4P) Influenza Virus 2017-05-25 Completed [facility] Vaccine Quad IM 3+ 00:00:00 [facility] Meningococcal B, OMV 2017-05-25 Completed [facility] 00:00:00 [facility] Meningococcal 2017-05-25 Completed [facility] Polysaccharide 00:00:00 [facility] (groups A, C, Y and Branc h W-135) conjugate vaccine (MCV4P) Influenza Virus 2017-05-25 Completed [facility] Vaccine Quad IM 3+ 00:00:00 [facility] Meningococcal B, OMV 2017-05-25 Completed [facility] 00:00:00 [facility] Meningococcal 2017-05-25 Completed [facility] Polysaccharide 00:00:00 [facility] (groups A, C, Y and Branc h W-135) conjugate vaccine (MCV4P) Influenza Virus 2017-05-25 Completed [facility] Vaccine Quad IM 3+ 00:00:00 [facility] Meningococcal B, OMV 2017-05-25 Completed [facility] 00:00:00 [facility] Meningococcal 2017-05-25 Completed [facility] Polysaccharide 00:00:00 [facility] (groups A, C, Y and Branc h W-135) conjugate vaccine (MCV4P) Influenza Virus 2017-05-25 Completed [facility] Vaccine Quad IM 3+ 00:00:00 [facility] Meningococcal B, OMV 2017-05-25 Completed [facility] 00:00:00 [facility] Meningococcal 2017-05-25 Completed [facility] Polysaccharide 00:00:00 [facility] (groups A, C, Y and Branc h W-135) conjugate vaccine (MCV4P) Influenza Virus 2017-05-25 Completed [facility] Vaccine Quad IM 3+ 00:00:00 [facility] Meningococcal B, OMV 2017-05-25 Completed [facility] 00:00:00 [facility] Meningococcal 2017-05-25 Completed [facility] Polysaccharide 00:00:00 [facility] (groups A, C, Y and Branc h W-135) conjugate vaccine (MCV4P) Influenza Virus 2017-05-25 Completed [facility] Vaccine Quad IM 3+ 00:00:00 [facility] Meningococcal B, OMV 2017-05-25 Completed [facility] 00:00:00 [facility] Meningococcal 2017-05-25 Completed [facility] Polysaccharide 00:00:00 [facility] (groups A, C, Y and Branc h W-135) conjugate vaccine (MCV4P) Influenza Virus 2017-05-25 Completed [facility] Vaccine Quad IM 3+ 00:00:00 [facility] Meningococcal B, OMV 2017-05-25 Completed [facility] 00:00:00 [facility] Meningococcal 2017-05-25 Completed [facility] Polysaccharide 00:00:00 [facility] (groups A, C, Y and Branc h W-135) conjugate vaccine (MCV4P) Influenza Virus 2017-05-25 Completed [facility] Vaccine Quad IM 3+ 00:00:00 [facility] Meningococcal B, OMV 2017-05-25 Completed [facility] 00:00:00 [facility] Meningococcal 2017-05-25 Completed [facility] Polysaccharide 00:00:00 [facility] (groups A, C, Y and Branc h W-135) conjugate vaccine (MCV4P) Influenza Virus 2017-05-25 Completed [facility] Vaccine Quad IM 3+ 00:00:00 [facility] Meningococcal B, OMV 2017-05-25 Completed [facility] 00:00:00 [facility] Meningococcal 2017-05-25 Completed [facility] Polysaccharide 00:00:00 [facility] (groups A, C, Y and Branc h W-135) conjugate vaccine (MCV4P) Influenza Virus 2017-05-25 Completed [facility] Vaccine Quad IM 3+ 00:00:00 [facility] Meningococcal B, OMV 2017-05-25 Completed [facility] 00:00:00 [facility] TDAP 2016-09-10 Completed [facility] of 00:00:00 [facility] HPV9 2016-09-10 Completed [facility] 00:00:00 [facility] Meningococcal 2016-09-10 Completed [facility] Polysaccharide 00:00:00 [facility] (groups A, C, Y and Branc h W-135) conjugate vaccine (MCV4P) TDAP 2016-09-10 Completed [facility] 00:00:00 [facility] HPV9 2016-09-10 Completed [facility] of 00:00:00 [facility] Meningococcal 2016-09-10 Completed [facility] Polysaccharide 00:00:00 [facility] (groups A, C, Y and Branc h W-135) conjugate vaccine (MCV4P) TDAP 2016-09-10 Completed [facility] of 00:00:00 [facility] HPV9 2016-09-10 Completed [facility] of 00:00:00 [facility] Meningococcal 2016-09-10 Completed [facility] Polysaccharide 00:00:00 [facility] (groups A, C, Y and Branc h W-135) conjugate vaccine (MCV4P) TDAP 2016-09-10 Completed [facility] of 00:00:00 [facility] HPV9 2016-09-10 Completed [facility] of 00:00:00 [facility] Meningococcal 2016-09-10 Completed [facility] Polysaccharide 00:00:00 [facility] (groups A, C, Y and Branc h W-135) conjugate vaccine (MCV4P) TDAP 2016-09-10 Completed [facility] of 00:00:00 [facility] HPV9 2016-09-10 Completed [facility] of 00:00:00 [facility] Meningococcal 2016-09-10 Completed [facility] Polysaccharide 00:00:00 [facility] (groups A, C, Y and Branc h W-135) conjugate vaccine (MCV4P) TDAP 2016-09-10 Completed [facility] of 00:00:00 [facility] HPV9 2016-09-10 Completed [facility] of 00:00:00 [facility] Meningococcal 2016-09-10 Completed [facility] Polysaccharide 00:00:00 [facility] (groups A, C, Y and Branc h W-135) conjugate vaccine (MCV4P) TDAP 2016-09-10 Completed [facility] 00:00:00 [facility] HPV9 2016-09-10 Completed [facility] 00:00:00 [facility] Meningococcal 2016-09-10 Completed [facility] Polysaccharide 00:00:00 [facility] (groups A, C, Y and Branc h W-135) conjugate vaccine (MCV4P) Tdap 2016-09-10 Completed [facility] of 00:00:00 [facility] HPV9 2016-09-10 Completed [facility] of 00:00:00 [facility] Meningococcal 2016-09-10 Completed [facility] Polysaccharide 00:00:00 [facility] (groups A, C, Y and Branc h W-135) conjugate vaccine (MCV4P) TDAP 2016-09-10 Completed [facility] of 00:00:00 [facility] HPV9 2016-09-10 Completed [facility] of 00:00:00 [facility] Meningococcal 2016-09-10 Completed [facility] Polysaccharide 00:00:00 [facility] (groups A, C, Y and Branc h W-135) conjugate vaccine (MCV4P) TDAP 2016-09-10 Completed [facility] 00:00:00 [facility] HPV9 2016-09-10 Completed [facility] 00:00:00 [facility] Meningococcal 2016-09-10 Completed [facility] Polysaccharide 00:00:00 [facility] (groups A, C, Y and Branc h W-135) conjugate vaccine (MCV4P) TDAP 2016-09-10 Completed [facility] of 00:00:00 [facility] HPV9 2016-09-10 Completed [facility] of 00:00:00 [facility] Meningococcal 2016-09-10 Completed [facility] Polysaccharide 00:00:00 [facility] (groups A, C, Y and Branc h W-135) conjugate vaccine (MCV4P) TDAP 2016-09-10 Completed [facility] 00:00:00 [facility] HPV9 2016-09-10 Completed [facility] of 00:00:00 [facility] Meningococcal 2016-09-10 Completed [facility] Polysaccharide 00:00:00 [facility] (groups A, C, Y and Branc h W-135) conjugate vaccine (MCV4P) TDAP 2016-09-10 Completed [facility] of 00:00:00 [facility] HPV9 2016-09-10 Completed [facility] 00:00:00 [facility] Meningococcal 2016-09-10 Completed [facility] Polysaccharide 00:00:00 [facility] (groups A, C, Y and Branc h W-135) conjugate vaccine (MCV4P) TDAP 2016-09-10 Completed [facility] of 00:00:00 [facility] HPV9 2016-09-10 Completed [facility] of 00:00:00 [facility] Meningococcal 2016-09-10 Completed [facility] Polysaccharide 00:00:00 [facility] (groups A, C, Y and Branc h W-135) conjugate vaccine (MCV4P) TDAP 2016-09-10 Completed [facility] 00:00:00 [facility] HPV9 2016-09-10 Completed [facility] of 00:00:00 [facility] Meningococcal 2016-09-10 Completed [facility] Polysaccharide 00:00:00 [facility] (groups A, C, Y and Branc h W-135) conjugate vaccine (MCV4P) TDAP 2016-09-10 Completed [facility] 00:00:00 [facility] HPV9 2016-09-10 Completed [facility] of 00:00:00 [facility] Meningococcal 2016-09-10 Completed [facility] Polysaccharide 00:00:00 [facility] (groups A, C, Y and Branc h W-135) conjugate vaccine (MCV4P) TDAP 2016-09-10 Completed [facility] of 00:00:00 [facility] HPV9 2016-09-10 Completed [facility] of 00:00:00 [facility] Meningococcal 2016-09-10 Completed [facility] Polysaccharide 00:00:00 [facility] (groups A, C, Y and Branc h W-135) conjugate vaccine (MCV4P) TDAP 2016-09-10 Completed [facility] of 00:00:00 [facility] HPV9 2016-09-10 Completed [facility] of 00:00:00 [facility] Meningococcal 2016-09-10 Completed [facility] Polysaccharide 00:00:00 [facility] (groups A, C, Y and Branc h W-135) conjugate vaccine (MCV4P) HPV9 2016-09-10 Completed [facility] 00:00:00 [facility] Meningococcal 2016-09-10 Completed [facility] Polysaccharide 00:00:00 [facility] (groups A, C, Y and Branc h W-135) conjugate vaccine (MCV4P) TDAP 2016-09-10 Completed [facility] of 00:00:00 [facility] Tdap 2016-09-10 Completed [facility] of 00:00:00 [facility] HPV9 2016-09-10 Completed [facility] of 00:00:00 [facility] Meningococcal 2016-09-10 Completed [facility] Polysaccharide 00:00:00 [facility] (groups A, C, Y and Branc h W-135) conjugate vaccine (MCV4P) TDAP 2016-09-10 Completed [facility] of 00:00:00 [facility] HPV9 2016-09-10 Completed [facility] of 00:00:00 [facility] Meningococcal 2016-09-10 Completed [facility] Polysaccharide 00:00:00 [facility] (groups A, C, Y and Branc h W-135) conjugate vaccine (MCV4P) TDAP 2016-09-10 Completed [facility] of 00:00:00 [facility] HPV9 2016-09-10 Completed [facility] of 00:00:00 [facility] Meningococcal 2016-09-10 Completed [facility] Polysaccharide 00:00:00 [facility] (groups A, C, Y and Branc h W-135) conjugate vaccine (MCV4P) TDAP 2016-09-10 Completed [facility] of 00:00:00 [facility] HPV9 2016-09-10 Completed [facility] of 00:00:00 [facility] Meningococcal 2016-09-10 Completed [facility] Polysaccharide 00:00:00 [facility] (groups A, C, Y and Branc h W-135) conjugate vaccine (MCV4P) TDAP 2016-09-10 Completed [facility] of 00:00:00 [facility] HPV9 2016-09-10 Completed [facility] of 00:00:00 [facility] Meningococcal 2016-09-10 Completed [facility] Polysaccharide 00:00:00 [facility] (groups A, C, Y and Branc h W-135) conjugate vaccine (MCV4P) TDAP 2016-09-10 Completed [facility] of 00:00:00 [facility] HPV9 2016-09-10 Completed [facility] of 00:00:00 [facility] Meningococcal 2016-09-10 Completed [facility] Polysaccharide 00:00:00 [facility] (groups A, C, Y and Branc h W-135) conjugate vaccine (MCV4P) TDAP 2016-09-10 Completed [facility] of 00:00:00 [facility] HPV9 2016-09-10 Completed [facility] of 00:00:00 [facility] Meningococcal 2016-09-10 Completed [facility] Polysaccharide 00:00:00 [facility] (groups A, C, Y and Branc h W-135) conjugate vaccine (MCV4P) TDAP 2016-09-10 Completed [facility] of 00:00:00 [facility] HPV9 2016-09-10 Completed [facility] of 00:00:00 [facility] Meningococcal 2016-09-10 Completed [facility] Polysaccharide 00:00:00 [facility] (groups A, C, Y and Branc h W-135) conjugate vaccine (MCV4P) TDAP 2016-09-10 Completed [facility] of 00:00:00 [facility] HPV9 2016-09-10 Completed [facility] of 00:00:00 [facility] Meningococcal 2016-09-10 Completed [facility] Polysaccharide 00:00:00 [facility] (groups A, C, Y and Branc h W-135) conjugate vaccine (MCV4P) HPV9 2016-09-10 Completed [facility] 00:00:00 [facility] Tdap 2016-09-10 Completed [facility] of 00:00:00 [facility] Meningococcal 2016-09-10 Completed [facility] Polysaccharide 00:00:00 [facility] (groups A, C, Y and Branc h W-135) conjugate vaccine (MCV4P) TDAP 2016-09-10 Completed [facility] of 00:00:00 [facility] HPV9 2016-09-10 Completed [facility] of 00:00:00 [facility] Meningococcal 2016-09-10 Completed [facility] Polysaccharide 00:00:00 [facility] (groups A, C, Y and Branc h W-135) conjugate vaccine (MCV4P) TDAP 2016-09-10 Completed [facility] of 00:00:00 [facility] HPV9 2016-09-10 Completed [facility] of 00:00:00 [facility] Meningococcal 2016-09-10 Completed [facility] Polysaccharide 00:00:00 [facility] (groups A, C, Y and Branc h W-135) conjugate vaccine (MCV4P) TDAP 2016-09-10 Completed [facility] 00:00:00 [facility] HPV9 2016-09-10 Completed [facility] of 00:00:00 [facility] Meningococcal 2016-09-10 Completed [facility] Polysaccharide 00:00:00 [facility] (groups A, C, Y and Branc h W-135) conjugate vaccine (MCV4P) TDAP 2016-09-10 Completed [facility] of 00:00:00 [facility] HPV9 2016-09-10 Completed [facility] of 00:00:00 [facility] Meningococcal 2016-09-10 Completed [facility] Polysaccharide 00:00:00 [facility] (groups A, C, Y and Branc h W-135) conjugate vaccine (MCV4P) TDAP 2016-09-10 Completed [facility] of 00:00:00 [facility] HPV9 2016-09-10 Completed [facility] 00:00:00 [facility] Meningococcal 2016-09-10 Completed [facility] Polysaccharide 00:00:00 [facility] (groups A, C, Y and Branc h W-135) conjugate vaccine (MCV4P) Tdap 2016-09-10 Completed [facility] 00:00:00 [facility] HPV9 2016-09-10 Completed [facility] 00:00:00 [facility] Meningococcal 2016-09-10 Completed [facility] Polysaccharide 00:00:00 [facility] (groups A, C, Y and Branc h W-135) conjugate vaccine (MCV4P) Tdap 2016-09-10 Completed [facility] 00:00:00 [facility] HPV9 2016-09-10 Completed [facility] 00:00:00 [facility] Meningococcal 2016-09-10 Completed [facility] Polysaccharide 00:00:00 [facility] (groups A, C, Y and Branc h W-135) conjugate vaccine (MCV4P) Tdap 2016-09-10 Completed [facility] 00:00:00 [facility] HPV9 2016-09-10 Completed [facility] 00:00:00 [facility] Meningococcal 2016-09-10 Completed [facility] Polysaccharide 00:00:00 [facility] (groups A, C, Y and Branc h W-135) conjugate vaccine (MCV4P) TDAP 2016-09-10 Completed [facility] 00:00:00 [facility] HPV9 2016-09-10 Completed [facility] 00:00:00 [facility] Meningococcal 2016-09-10 Completed [facility] Polysaccharide 00:00:00 [facility] (groups A, C, Y and Branc h W-135) conjugate vaccine (MCV4P) TDAP 2016-09-10 Completed [facility] 00:00:00 [facility] HPV9 2016-09-10 Completed [facility] 00:00:00 [facility] Meningococcal 2016-09-10 Completed [facility] Polysaccharide 00:00:00 [place] [facility] (groups A, C, Y and Branc h W-135) conjugate vaccine (MCV4P) TDAP 2016-09-10 Completed [facility] 00:00:00 [facility] HPV9 2016-09-10 Completed [facility] 00:00:00 [facility] Meningococcal 2016-09-10 Completed [facility] Polysaccharide 00:00:00 [facility] (groups A, C, Y and Branc h W-135) conjugate vaccine (MCV4P) TDAP 2016-09-10 Completed [facility] 00:00:00 [facility] HPV9 2016-09-10 Completed [facility] 00:00:00 [facility] Meningococcal 2016-09-10 Completed [facility] Polysaccharide 00:00:00 [facility] (groups A, C, Y and Branc h W-135) conjugate vaccine (MCV4P) TDAP 2016-09-10 Completed [facility] 00:00:00 [facility] HPV9 2016-09-10 Completed [facility] 00:00:00 [facility] Meningococcal 2016-09-10 Completed [facility] Polysaccharide 00:00:00 [facility] (groups A, C, Y and Branc h W-135) conjugate vaccine (MCV4P) TDAP 2016-09-10 Completed [facility] 00:00:00 [facility] HPV9 2016-09-10 Completed [facility] 00:00:00 [facility] Meningococcal 2016-09-10 Completed [facility] Polysaccharide 00:00:00 [facility] (groups A, C, Y and Branc h W-135) conjugate vaccine (MCV4P) TDAP 2016-09-10 Completed [facility] 00:00:00 [facility] HPV9 2016-09-10 Completed [facility] 00:00:00 [facility] Meningococcal 2016-09-10 Completed [facility] Polysaccharide 00:00:00 [facility] (groups A, C, Y and Branc h W-135) conjugate vaccine (MCV4P) TDAP 2016-09-10 Completed [facility] 00:00:00 [facility] HPV9 2016-09-10 Completed [facility] 00:00:00 [facility] Meningococcal 2016-09-10 Completed [facility] Polysaccharide 00:00:00 [facility] (groups A, C, Y and Branc h W-135) conjugate vaccine (MCV4P) TDAP 2016-09-10 Completed [facility] 00:00:00 [facility] HPV9 2016-09-10 Completed [facility] 00:00:00 [facility] Meningococcal 2016-09-10 Completed [facility] Polysaccharide 00:00:00 [facility] (groups A, C, Y and Branc h W-135) conjugate vaccine (MCV4P) TDAP 2016-09-10 Completed [facility] 00:00:00 [facility] HPV9 2016-09-10 Completed [facility] 00:00:00 [facility] Meningococcal 2016-09-10 Completed [facility] Polysaccharide 00:00:00 [facility] (groups A, C, Y and Branc h W-135) conjugate vaccine (MCV4P) TDAP 2016-09-10 Completed [facility] 00:00:00 [facility] HPV9 2016-09-10 Completed [facility] 00:00:00 [facility] Meningococcal 2016-09-10 Completed [facility] Polysaccharide 00:00:00 [facility] (groups A, C, Y and Branc h W-135) conjugate vaccine (MCV4P) TDAP 2016-09-10 Completed [facility] 00:00:00 [facility] HPV9 2016-09-10 Completed [facility] 00:00:00 [facility] Meningococcal 2016-09-10 Completed [facility] Polysaccharide 00:00:00 [facility] (groups A, C, Y and Branc h W-135) conjugate vaccine (MCV4P) TDAP 2016-09-10 Completed [facility] 00:00:00 [facility] HPV9 2016-09-10 Completed [facility] 00:00:00 [facility] Meningococcal 2016-09-10 Completed [facility] Polysaccharide 00:00:00 [facility] (groups A, C, Y and Branc h W-135) conjugate vaccine (MCV4P) HPV 2010-03-03 Completed [facility] 00:00:00 [facility] Influenza Virus 2010-03-03 Completed [facility] Vaccine 00:00:00 [facility] HPV 2010-03-03 Completed [facility] 00:00:00 [facility] Influenza Virus 2010-03-03 Completed [facility] y of Vaccine 00:00:00 [facility] HPV 2010-03-03 Completed [facility] 00:00:00 [facility] Influenza Virus 2010-03-03 Completed [facility] y of Vaccine 00:00:00 [facility] HPV 2010-03-03 Completed [facility] 00:00:00 [facility] Influenza Virus 2010-03-03 Completed [facility] y of Vaccine 00:00:00 [facility] HPV 2010-03-03 Completed [facility] 00:00:00 [facility] Influenza Virus 2010-03-03 Completed [facility] y of Vaccine 00:00:00 [facility] HPV 2010-03-03 Completed [facility] 00:00:00 [facility] Influenza Virus 2010-03-03 Completed [facility] y of Vaccine 00:00:00 [facility] HPV 2010-03-03 Completed [facility] 00:00:00 [facility] Influenza Virus 2010-03-03 Completed [facility] y of Vaccine 00:00:00 [facility] HPV 2010-03-03 Completed [facility] 00:00:00 [facility] Influenza Virus 2010-03-03 Completed [facility] y of Vaccine 00:00:00 [facility] HPV 2010-03-03 Completed [facility] 00:00:00 [facility] Influenza Virus 2010-03-03 Completed [facility] y of Vaccine 00:00:00 [facility] HPV 2010-03-03 Completed [facility] 00:00:00 [facility] HPV 2010-03-03 Completed [facility] 00:00:00 [facility] Influenza Virus 2010-03-03 Completed [facility] y of Vaccine 00:00:00 [facility] Influenza Virus 2010-03-03 Completed [facility] y of Vaccine 00:00:00 [facility] HPV 2010-03-03 Completed [facility] 00:00:00 [facility] Influenza Virus 2010-03-03 Completed [facility] y of Vaccine 00:00:00 [facility] HPV 2010-03-03 Completed [facility] 00:00:00 [facility] Influenza Virus 2010-03-03 Completed [facility] y of Vaccine 00:00:00 [facility] HPV 2010-03-03 Completed [facility] 00:00:00 [facility] Influenza Virus 2010-03-03 Completed [facility] y of Vaccine 00:00:00 [facility] HPV 2010-03-03 Completed [facility] 00:00:00 [facility] Influenza Virus 2010-03-03 Completed [facility] y of Vaccine 00:00:00 [facility] HPV 2010-03-03 Completed [facility] 00:00:00 [facility] Influenza Virus 2010-03-03 Completed [facility] y of Vaccine 00:00:00 [facility] HPV 2010-03-03 Completed [facility] 00:00:00 [facility] Influenza Virus 2010-03-03 Completed [facility] y of Vaccine 00:00:00 [facility] HPV 2010-03-03 Completed [facility] 00:00:00 [facility] Influenza Virus 2010-03-03 Completed [facility] y of Vaccine 00:00:00 [facility] HPV 2010-03-03 Completed [facility] 00:00:00 [facility] Influenza Virus 2010-03-03 Completed [facility] y of Vaccine 00:00:00 [facility] HPV 2010-03-03 Completed [facility] 00:00:00 [facility] HPV 2010-03-03 Completed [facility] 00:00:00 [facility] Influenza Virus 2010-03-03 Completed [facility] y of Vaccine 00:00:00 [facility] Influenza Virus 2010-03-03 Completed [facility] y of Vaccine 00:00:00 [facility] HPV 2010-03-03 Completed [facility] 00:00:00 [facility] Influenza Virus 2010-03-03 Completed [facility] y of Vaccine 00:00:00 [facility] HPV 2010-03-03 Completed [facility] 00:00:00 [facility] Influenza Virus 2010-03-03 Completed [facility] y of Vaccine 00:00:00 [facility] HPV 2010-03-03 Completed [facility] 00:00:00 [facility] Influenza Virus 2010-03-03 Completed [facility] y of Vaccine 00:00:00 [facility] HPV 2010-03-03 Completed [facility] 00:00:00 [facility] Influenza Virus 2010-03-03 Completed [facility] y of Vaccine 00:00:00 [facility] HPV 2010-03-03 Completed [facility] 00:00:00 [facility] Influenza Virus 2010-03-03 Completed [facility] y of Vaccine 00:00:00 [facility] HPV 2010-03-03 Completed [facility] 00:00:00 [facility] Influenza Virus 2010-03-03 Completed [facility] y of Vaccine 00:00:00 [facility] HPV 2010-03-03 Completed [facility] 00:00:00 [facility] Influenza Virus 2010-03-03 Completed [facility] y of Vaccine 00:00:00 [facility] HPV 2010-03-03 Completed [facility] 00:00:00 [facility] Influenza Virus 2010-03-03 Completed [facility] y of Vaccine 00:00:00 [facility] HPV 2010-03-03 Completed [facility] 00:00:00 [facility] Influenza Virus 2010-03-03 Completed [facility] y of Vaccine 00:00:00 [facility] HPV 2010-03-03 Completed [facility] 00:00:00 [facility] Influenza Virus 2010-03-03 Completed [facility] y of Vaccine 00:00:00 [facility] HPV 2010-03-03 Completed [facility] 00:00:00 [facility] Influenza Virus 2010-03-03 Completed [facility] y of Vaccine 00:00:00 [facility] HPV 2010-03-03 Completed [facility] 00:00:00 [facility] Influenza Virus 2010-03-03 Completed [facility] y of Vaccine 00:00:00 [facility] HPV 2010-03-03 Completed [facility] 00:00:00 [facility] Influenza Virus 2010-03-03 Completed [facility] y of Vaccine 00:00:00 [facility] HPV 2010-03-03 Completed [facility] 00:00:00 [facility] Influenza Virus 2010-03-03 Completed [facility] y of Vaccine 00:00:00 [facility] HPV 2010-03-03 Completed [facility] 00:00:00 [facility] Influenza Virus 2010-03-03 Completed [facility] y of Vaccine 00:00:00 [facility] HPV 2010-03-03 Completed [facility] 00:00:00 [facility] Influenza Virus 2010-03-03 Completed [facility] y of Vaccine 00:00:00 [facility] HPV 2010-03-03 Completed [facility] 00:00:00 [facility] Influenza Virus 2010-03-03 Completed [facility] y of Vaccine 00:00:00 [facility] HPV 2010-03-03 Completed [facility] 00:00:00 [facility] Influenza Virus 2010-03-03 Completed [facility] y of Vaccine 00:00:00 [facility] HPV 2010-03-03 Completed [facility] 00:00:00 [facility] Influenza Virus 2010-03-03 Completed [facility] y of Vaccine 00:00:00 [facility] HPV 2010-03-03 Completed [facility] 00:00:00 [facility] Influenza Virus 2010-03-03 Completed [facility] y of Vaccine 00:00:00 [facility] HPV 2010-03-03 Completed [facility] 00:00:00 [facility] Influenza Virus 2010-03-03 Completed [facility] y of Vaccine 00:00:00 [facility] HPV 2010-03-03 Completed [facility] 00:00:00 [facility] Influenza Virus 2010-03-03 Completed [facility] y of Vaccine 00:00:00 [facility] HPV 2010-03-03 Completed [facility] 00:00:00 [facility] Influenza Virus 2010-03-03 Completed [facility] y of Vaccine 00:00:00 [facility] HPV 2010-03-03 Completed [facility] 00:00:00 [facility] Influenza Virus 2010-03-03 Completed [facility] y of Vaccine 00:00:00 [facility] HPV 2010-03-03 Completed [facility] 00:00:00 [facility] Influenza Virus 2010-03-03 Completed [facility] y of Vaccine 00:00:00 [facility] HPV 2010-03-03 Completed [facility] 00:00:00 [facility] Influenza Virus 2010-03-03 Completed [facility] y of Vaccine 00:00:00 [facility] HPV 2010-03-03 Completed [facility] 00:00:00 [facility] Influenza Virus 2010-03-03 Completed [facility] y of Vaccine 00:00:00 [facility] HPV 2010-03-03 Completed [facility] 00:00:00 [facility] Influenza Virus 2010-03-03 Completed [facility] y of Vaccine 00:00:00 [facility] HPV 2010-03-03 Completed [facility] 00:00:00 [facility] Influenza Virus 2010-03-03 Completed [facility] y of Vaccine 00:00:00 [facility] Varicella 2008-11-15 Completed [facility] (varivax)(chicken 00:00:00 [...] of (varivax)(chicken 00:00:00 [facility] [place] Influenza Virus 2007-06-02 Completed [facility] y of Vaccine 00:00:00 [facility] Influenza Virus 2007-06-02 Completed [facility] y of Vaccine 00:00:00 [facility] Influenza Virus 2007-06-02 Completed [facility] y of Vaccine 00:00:00 [facility] Influenza Virus 2007-06-02 Completed [facility] y of Vaccine 00:00:00 [facility] Influenza Virus 2007-06-02 Completed [facility] y of Vaccine 00:00:00 [facility] Influenza Virus 2007-06-02 Completed [facility] y of Vaccine 00:00:00 [facility] Influenza Virus 2007-06-02 Completed [facility] y of Vaccine 00:00:00 [facility] Influenza Virus 2007-06-02 Completed [facility] y of Vaccine 00:00:00 [facility] Influenza Virus 2007-06-02 Completed [facility] y of Vaccine 00:00:00 [facility] Influenza Virus 2007-06-02 Completed [facility] y of Vaccine 00:00:00 [facility] Influenza Virus 2007-06-02 Completed [facility] y of Vaccine 00:00:00 [facility] Influenza Virus 2007-06-02 Completed [facility] y of Vaccine 00:00:00 [facility] Influenza Virus 2007-06-02 Completed [facility] y of Vaccine 00:00:00 [facility] Influenza Virus 2007-06-02 Completed [facility] y of Vaccine 00:00:00 [facility] Influenza Virus 2007-06-02 Completed [facility] y of Vaccine 00:00:00 [facility] Influenza Virus 2007-06-02 Completed [facility] y of Vaccine 00:00:00 [facility] Influenza Virus 2007-06-02 Completed [facility] y of Vaccine 00:00:00 [facility] Influenza Virus 2007-06-02 Completed [facility] y of Vaccine 00:00:00 [facility] Influenza Virus 2007-06-02 Completed [facility] y of Vaccine 00:00:00 [facility] Influenza Virus 2007-06-02 Completed [facility] y of Vaccine 00:00:00 [facility] Influenza Virus 2007-06-02 Completed [facility] y of Vaccine 00:00:00 [facility] Influenza Virus 2007-06-02 Completed [facility] y of Vaccine 00:00:00 [facility] Influenza Virus 2007-06-02 Completed [facility] y of Vaccine 00:00:00 [facility] Influenza Virus 2007-06-02 Completed [facility] y of Vaccine 00:00:00 [facility] Influenza Virus 2007-06-02 Completed [facility] y of Vaccine 00:00:00 [facility] Influenza Virus 2007-06-02 Completed [facility] y of Vaccine 00:00:00 [facility] Influenza Virus 2007-06-02 Completed [facility] y of Vaccine 00:00:00 [facility] Influenza Virus 2007-06-02 Completed [facility] y of Vaccine 00:00:00 [facility] Influenza Virus 2007-06-02 Completed [facility] y of Vaccine 00:00:00 [facility] Influenza Virus 2007-06-02 Completed [facility] y of Vaccine 00:00:00 [facility] Influenza Virus 2007-06-02 Completed [facility] y of Vaccine 00:00:00 [facility] Influenza Virus 2007-06-02 Completed [facility] y of Vaccine 00:00:00 [facility] Influenza Virus 2007-06-02 Completed [facility] y of Vaccine 00:00:00 [facility] Influenza Virus 2007-06-02 Completed [facility] y of Vaccine 00:00:00 [facility] Influenza Virus 2007-06-02 Completed [facility] y of Vaccine 00:00:00 [facility] Influenza Virus 2007-06-02 Completed [facility] y of Vaccine 00:00:00 [facility] Influenza Virus 2007-06-02 Completed [facility] y of Vaccine 00:00:00 [facility] Influenza Virus 2007-06-02 Completed [facility] y of Vaccine 00:00:00 [facility] Influenza Virus 2007-06-02 Completed [facility] y of Vaccine 00:00:00 [facility] Influenza Virus 2007-06-02 Completed [facility] y of Vaccine 00:00:00 [facility] Influenza Virus 2007-06-02 Completed [facility] y of Vaccine 00:00:00 [facility] Influenza Virus 2007-06-02 Completed [facility] y of Vaccine 00:00:00 [facility] Influenza Virus 2007-06-02 Completed [facility] y of Vaccine 00:00:00 [facility] Influenza Virus 2007-06-02 Completed [facility] y of Vaccine 00:00:00 [facility] Influenza Virus 2007-06-02 Completed [facility] y of Vaccine 00:00:00 [facility] Influenza Virus 2007-06-02 Completed [facility] y of Vaccine 00:00:00 [facility] Influenza Virus 2007-06-02 Completed [facility] y of Vaccine 00:00:00 [facility] Influenza Virus 2007-06-02 Completed [facility] y of Vaccine 00:00:00 [facility] Influenza Virus 2007-06-02 Completed [facility] y of Vaccine 00:00:00 [facility] Influenza Virus 2007-06-02 Completed [facility] y of Vaccine 00:00:00 [facility] HEPATITIS A 2005-11-09 Completed [facility] 00:00:00 [facility] HEPATITIS A 2005-11-09 Completed [facility] 00:00:00 [facility] HEPATITIS A 2005-11-09 Completed [facility] 00:00:00 [facility] HEPATITIS A 2005-11-09 Completed [facility] 00:00:00 [facility] HEPATITIS A 2005-11-09 Completed [facility] 00:00:00 [facility] HEPATITIS A 2005-11-09 Completed [facility] 00:00:00 [facility] HEPATITIS A 2005-11-09 Completed [facility] 00:00:00 [facility] HEPATITIS A 2005-11-09 Completed [facility] 00:00:00 [facility] HEPATITIS A 2005-11-09 Completed [facility] 00:00:00 [facility] HEPATITIS A 2005-11-09 Completed [facility] 00:00:00 [facility] HEPATITIS A 2005-11-09 Completed [facility] 00:00:00 [facility] HEPATITIS A 2005-11-09 Completed [facility] 00:00:00 [facility] HEPATITIS A 2005-11-09 Completed [facility] 00:00:00 [facility] HEPATITIS A 2005-11-09 Completed [facility] 00:00:00 [facility] HEPATITIS A 2005-11-09 Completed [facility] 00:00:00 [facility] HEPATITIS A 2005-11-09 Completed [facility] 00:00:00 [facility] HEPATITIS A 2005-11-09 Completed [facility] 00:00:00 [facility] HEPATITIS A 2005-11-09 Completed [facility] 00:00:00 [facility] HEPATITIS A 2005-11-09 Completed [facility] 00:00:00 [facility] HEPATITIS A 2005-11-09 Completed [facility] 00:00:00 [facility] HEPATITIS A 2005-11-09 Completed [facility] 00:00:00 [facility] HEPATITIS A 2005-11-09 Completed [facility] 00:00:00 [facility] HEPATITIS A 2005-11-09 Completed [facility] 00:00:00 [facility] HEPATITIS A 2005-11-09 Completed [facility] 00:00:00 [facility] HEPATITIS A 2005-11-09 Completed [facility] 00:00:00 [facility] HEPATITIS A 2005-11-09 Completed [facility] 00:00:00 [facility] HEPATITIS A 2005-11-09 Completed [facility] 00:00:00 [facility] HEPATITIS A 2005-11-09 Completed [facility] 00:00:00 [facility] HEPATITIS A 2005-11-09 Completed [facility] 00:00:00 [facility] HEPATITIS A 2005-11-09 Completed [facility] 00:00:00 [facility] HEPATITIS A 2005-11-09 Completed [facility] 00:00:00 [facility] HEPATITIS A 2005-11-09 Completed [facility] 00:00:00 [facility] HEPATITIS A 2005-11-09 Completed [facility] 00:00:00 [facility] HEPATITIS A 2005-11-09 Completed [facility] 00:00:00 [facility] HEPATITIS A 2005-11-09 Completed [facility] 00:00:00 [facility] HEPATITIS A 2005-11-09 Completed [facility] 00:00:00 [facility] HEPATITIS A 2005-11-09 Completed [facility] 00:00:00 [facility] HEPATITIS A 2005-11-09 Completed [facility] 00:00:00 [facility] HEPATITIS A 2005-11-09 Completed [facility] 00:00:00 [facility] HEPATITIS A 2005-11-09 Completed [facility] 00:00:00 [facility] HEPATITIS A 2005-11-09 Completed [facility] 00:00:00 [facility] HEPATITIS A 2005-11-09 Completed [facility] 00:00:00 [facility] HEPATITIS A 2005-11-09 Completed [facility] 00:00:00 [facility] HEPATITIS A 2005-11-09 Completed [facility] 00:00:00 [facility] HEPATITIS A 2005-11-09 Completed [facility] 00:00:00 [facility] HEPATITIS A 2005-11-09 Completed [facility] 00:00:00 [facility] HEPATITIS A 2005-11-09 Completed [facility] 00:00:00 [facility] HEPATITIS A 2005-11-09 Completed [facility] 00:00:00 [facility] HEPATITIS A 2005-11-09 Completed [facility] 00:00:00 [facility] HEPATITIS A 2005-11-09 Completed [facility] 00:00:00 [facility] MMR 2005-06-21 Completed [facility] 00:00:00 [facility] DTAP 2005-06-21 Completed [facility] 00:00:00 [facility] MMR 2005-06-21 Completed [facility] 00:00:00 [facility] Polio (IPV/OPV) 2005-06-21 Completed [facility] 00:00:00 [facility] Varicella 2005-06-21 Completed [facility] (varivax)(chicken 00:00:00 [facility] Polio (IPV/OPV) 2005-06-21 Completed [facility] 00:00:00 [facility] Varicella 2005-06-21 Completed [facility] (varivax)(chicken 00:00:00 [facility] DTAP 2005-06-21 Completed [facility] 00:00:00 [facility] MMR 2005-06-21 Completed [facility] 00:[facility]00 [facility] [place] Polio (IPV/OPV) 2005-06-21 Completed [facility] 00:00:00 [facility] [place] Varicella 2005-06-21 Completed [facility] (varivax)(chicken 00:00:00 [place] [facility] DTAP 2005-06-21 Completed [facility] 00:00:00 [facility] [place] MMR 2005-06-21 Completed [facility] 00:00:00 [facility] [place] Polio (IPV/OPV) 2005-06-21 Completed [facility] 00:00:00 [facility] [place] Varicella 2005-06-21 Completed [facility] (varivax)(chicken 00:00:00 [place] [facility] DTAP 2005-06-21 Completed [facility] 00:00:00 [facility] [place] MMR 2005-06-21 Completed [facility] 00:00:00 [facility] [place] Polio (IPV/OPV) 2005-06-21 Completed [facility] 00:00:00 [facility] Varicella 2005-06-21 Completed [facility] (varivax)(chicken 00:00:00 [place] [facility] DTAP 2005-06-21 Completed [facility] 00:00:00 [facility] MMR 2005-06-21 Completed [facility] 00:00:00 [facility] [place] Polio (IPV/OPV) 2005-06-21 Completed [facility] 00:00:00 [facility] Varicella 2005-06-21 Completed [facility] (varivax)(chicken 00:00:00 [place] [facility] DTAP 2005-06-21 Completed [facility] 00:00:00 [facility] MMR 2005-06-21 Completed [facility] 00:00:00 [facility] [place] Polio (IPV/OPV) 2005-06-21 Completed [facility] 00:00:00 [facility] [place] Varicella 2005-06-21 Completed [facility] (varivax[facility] 00:00:00 [place] [facility] DTAP 2005-06-21 Completed [facility] 00:00:00 [facility] MMR 2005-06-21 Completed [facility] 00:00:00 [facility] [place] Polio (IPV/OPV) 2005-06-21 Completed [facility] 00:00:00 [facility] [place] Varicella 2005-06-21 Completed [facility] (varivax)([place]icken 00:00:00 [place] [facility] DTAP 2005-06-21 Completed [facility] 00:00:00 [facility] DTAP 2005-06-21 Completed [facility] 00:00:00 [facility] MMR 2005-06-21 Completed [facility] 00:00:00 [facility] [place] Polio (IPV/OPV) 2005-06-21 Completed [facility] 00:00:00 [facility] [place] Varicella 2005-06-21 Completed [facility] (varivax)(chicken 00:00:00 [place] [facility] DTAP 2005-06-21 Completed [facility] 00:00:00 [facility] MMR 2005-06-21 Completed [facility] 00:00:00 [facility] [place] Polio (IPV/OPV) 2005-06-21 Completed [facility] 00:00:00 [facility] Varicella 2005-06-21 Completed [facility] (varivax)(chicken 00:00:00 [place] [facility] DTAP 2005-06-21 Completed [facility] 00:00:00 [facility] MMR 2005-06-21 Completed [facility] 00:00:00 [facility] [place] Polio (IPV/OPV) 2005-06-21 Completed [facility] 00:00:00 [facility] Varicella 2005-06-21 Completed [facility] (varivax)(chicken 00:00:00 [place] [facility] DTAP 2005-06-21 Completed [facility] 00:00:00 [facility] MMR 2005-06-21 Completed [facility] 00:00:00 [facility] MMR 2005-06-21 Completed [facility] 00:00:00 [facility] [place] Polio (IPV/OPV) 2005-06-21 Completed [facility] 00:00:00 [facility] Varicella 2005-06-21 Completed [facility] (varivax)(chicken 00:00:00 [place] [facility] DTAP 2005-06-21 Completed [facility] 00:00:00 [facility] [place] Polio (IPV/OPV) 2005-06-21 Completed [facility] 00:00:00 [facility] MMR 2005-06-21 Completed [facility] 00:00:00 [facility] [place] Polio (IPV/OPV) 2005-06-21 Completed [facility] 00:00:00 [facility] Varicella 2005-06-21 Completed [facility] (varivax)(chicken 00:00:00 [place] [facility] Varicella 2005-06-21 Completed [facility] (varivax)(chicken 00:00:00 [place] [facility] DTAP 2005-06-21 Completed [facility] 00:00:00 [facility] MMR 2005-06-21 Completed [facility] 00:00:00 [facility] [place] Polio (IPV/OPV) 2005-06-21 Completed [facility] 00:00:00 [facility] Varicella 2005-06-21 Completed [facility] (varivax)(chicken 00:00:00 [place] [facility] DTAP 2005-06-21 Completed [facility] 00:00:00 [facility] MMR 2005-06-21 Completed [facility] 00:00:00 [facility] [place] Polio (IPV/OPV) 2005-06-21 Completed [facility] 00:00:00 [facility] Varicella 2005-06-21 Completed [facility] (varivax)(chicken 00:00:00 [place] [facility] DTAP 2005-06-21 Completed [facility] 00:00:00 [facility] MMR 2005-06-21 Completed [facility] 00:00:00 [facility] [place] Polio (IPV/OPV) 2005-06-21 Completed [facility] 00:00:00 [facility] Varicella 2005-06-21 Completed [facility] (varivax)(chicken 00:00:00 [place] [facility] DTAP 2005-06-21 Completed [facility] 00:00:00 [facility] MMR 2005-06-21 Completed [facility] 00:00:00 [facility] [place] Polio (IPV/OPV) 2005-06-21 Completed [facility] 00:00:00 [facility] [place] Varicella 2005-06-21 Completed [facility] (varivax)(chicken 00:00:00 [place] [facility] DTAP 2005-06-21 Completed [facility] 00:00:00 [facility] DTAP 2005-06-21 Completed [facility] 00:00:00 [facility] MMR 2005-06-21 Completed [facility] 00:00:00 [facility] [place] Polio (IPV/OPV) 2005-06-21 Completed [facility] 00:00:00 [facility] [place] Varicella 2005-06-21 Completed [facility] (varivax)(chicken 00:00:00 [place] [facility] DTAP 2005-06-21 Completed [facility] 00:00:00 [facility] MMR 2005-06-21 Completed [facility] 00:00:00 [facility] [place] Polio (IPV/OPV) 2005-06-21 Completed [facility] 00:00:00 [facility] [place] Varicella 2005-06-21 Completed [facility] (varivax)(chicken 00:00:00 [place] [facility] DTAP 2005-06-21 Completed [facility] 00:00:00 [facility] MMR 2005-06-21 Completed [facility] 00:00:00 [facility] [place] Polio (IPV/OPV) 2005-06-21 Completed [facility] 00:00:00 [facility] Varicella 2005-06-21 Completed [facility] (varivax)(chicken 00:00:00 [place] [facility] MMR 2005-06-21 Completed [facility] 00:00:00 [facility] DTAP 2005-06-21 Completed [facility] 00:00:00 [facility] MMR 2005-06-21 Completed [facility] 00:00:00 [facility] [place] Polio (IPV/OPV) 2005-06-21 Completed [facility] 00:00:00 [facility] Varicella 2005-06-21 Completed [facility] (varivax)(chicken 00:00:00 [place] [facility] DTAP 2005-06-21 Completed [facility] 00:00:00 [facility] [place] Polio (IPV/OPV) 2005-06-21 Completed [facility] 00:00:00 [facility] Varicella 2005-06-21 Completed [facility] (varivax)(chicken 00:00:00 [place] [facility] MMR 2005-06-21 Completed [facility] 00:00:00 [facility] [place] Polio (IPV/OPV) 2005-06-21 Completed [facility] 00:00:00 [facility] Varicella 2005-06-21 Completed [facility] (varivax)(chicken 00:00:00 [place] [facility] DTAP 2005-06-21 Completed [facility] 00:00:00 [facility] MMR 2005-06-21 Completed [facility] 00:00:00 [facility] Polio (IPV/OPV) 2005-06-21 Completed [facility] 00:00:00 [facility] Varicella 2005-06-21 Completed [facility] (varivax)(chicken 00:00:00 [place] [facility] DTAP 2005-06-21 Completed [facility] 00:00:00 [facility] MMR 2005-06-21 Completed [facility] 00:00:00 [facility] [place] Polio (IPV/OPV) 2005-06-21 Completed [facility] 00:00:00 [facility] Varicella 2005-06-21 Completed [facility] (varivax)(chicken 00:00:00 [place] [facility] DTAP 2005-06-21 Completed [facility] 00:00:00 [facility] MMR 2005-06-21 Completed [facility] 00:00:00 [facility] [place] Polio (IPV/OPV) 2005-06-21 Completed [facility] 00:00:00 [facility] Varicella 2005-06-21 Completed [facility] (varivax)(chicken 00:00:00 [place] [facility] DTAP 2005-06-21 Completed [facility] 00:00:00 [facility] MMR 2005-06-21 Completed [facility] 00:00:00 [facility] DTAP 2005-06-21 Completed [facility] 00:00:00 [facility] [place] Polio (IPV/OPV) 2005-06-21 Completed [facility] 00:00:00 [facility] [place] Varicella 2005-06-21 Completed [facility] (varivax)(chicken 00:00:00 [place] [facility] DTAP 2005-06-21 Completed [facility] 00:00:00 [facility] MMR 2005-06-21 Completed [facility] 00:00:00 [facility] [place] Polio (IPV/OPV) 2005-06-21 Completed [facility] 00:00:00 [facility] Varicella 2005-06-21 Completed [facility] (varivax)(chicken 00:00:00 [place] [facility] MMR 2005-06-21 Completed [facility] 00:00:00 [facility] [place] Polio (IPV/OPV) 2005-06-21 Completed [facility] 00:00:00 [facility] Varicella 2005-06-21 Completed [facility] (varivax)(chicken 00:00:00 [place] [facility] DTAP 2005-06-21 Completed [facility] 00:00:00 [facility] MMR 2005-06-21 Completed [facility] 00:00:00 [facility] [place] Polio (IPV/OPV) 2005-06-21 Completed [facility] 00:00:00 [facility] [place] Varicella 2005-06-21 Completed [facility] (varivax)(chicken 00:00:00 [place] [facility] DTAP 2005-06-21 Completed [facility] 00:00:00 [facility] MMR 2005-06-21 Completed [facility] 00:00:00 [facility] [place] Polio (IPV/OPV) 2005-06-21 Completed [facility] 00:00:00 [facility] [place] Varicella 2005-06-21 Completed [facility] (varivax)(chicken 00:00:00 [place] [facility] DTAP 2005-06-21 Completed [facility] 00:00:00 [facility] MMR 2005-06-21 Completed [facility] 00:00:00 [facility] [place] Polio (IPV/OPV) 2005-06-21 Completed [facility] 00:00:00 [facility] Varicella 2005-06-21 Completed [facility] (varivax)(chicken 00:00:00 [place] [facility] DTAP 2005-06-21 Completed [facility] 00:00:00 [facility] MMR 2005-06-21 Completed [facility] 00:00:00 [facility] [place] Polio (IPV/OPV) 2005-06-21 Completed [facility] 00:00:00 [facility] Varicella 2005-06-21 Completed [facility] (varivax)(chicken 00:00:00 [place] [facility] DTAP 2005-06-21 Completed [facility] 00:00:00 [facility] MMR 2005-06-21 Completed [facility] 00:00:00 [facility] [place] Polio (IPV/OPV) 2005-06-21 Completed [facility] 00:00:00 [facility] Varicella 2005-06-21 Completed [facility] (varivax)(chicken 00:00:00 [place] [facility] DTAP 2005-06-21 Completed [facility] 00:00:00 [facility] MMR 2005-06-21 Completed [facility] 00:00:00 [facility] [place] Polio (IPV/OPV) 2005-06-21 Completed [facility] 00:00:00 [facility] Varicella 2005-06-21 Completed [facility] (varivax)(chicken 00:00:00 [place] [facility] DTAP 2005-06-21 Completed [facility] 00:00:00 [facility] MMR 2005-06-21 Completed [facility] 00:00:00 [facility] Polio (IPV/OPV) 2005-06-21 Completed [facility] 00:00:00 [facility] Varicella 2005-06-21 Completed [facility] (varivax)(chicken 00:00:00 [place] [facility] DTAP 2005-06-21 Completed [facility] 00:00:00 [facility] MMR 2005-06-21 Completed [facility] 00:00:00 [facility] [place] Polio (IPV/OPV) 2005-06-21 Completed [facility] 00:00:00 [facility] Varicella 2005-06-21 Completed [facility] (varivax)(chicken 00:00:00 [place] [facility] DTAP 2005-06-21 Completed [facility] 00:00:00 [facility] MMR 2005-06-21 Completed [facility] 00:00:00 [facility] [place] Polio (IPV/OPV) 2005-06-21 Completed [facility] 00:00:00 [facility] Varicella 2005-06-21 Completed [facility] (varivax)(chicken 00:00:00 [place] [facility] DTAP 2005-06-21 Completed [facility] 00:00:00 [facility] MMR 2005-06-21 Completed [facility] 00:00:00 [facility] [place] Polio (IPV/OPV) 2005-06-21 Completed [facility] 00:00:00 [facility] Varicella 2005-06-21 Completed [facility] (varivax)(chicken 00:00:00 [place] [facility] DTAP 2005-06-21 Completed [facility] 00:00:00 [facility] MMR 2005-06-21 Completed [facility] 00:00:00 [facility] Polio (IPV/OPV) 2005-06-21 Completed [facility] 00:00:00 [facility] [place] Varicella 2005-06-21 Completed [facility] (varivax)(chicken 00:00:00 [facility] ed[facility] pox) Branch DTAP 2005-06-21 Completed [facility] 00:00:00 [facility] MMR 2005-06-21 Completed [facility] 00:00:00 [facility] [place] Polio (IPV/OPV) 2005-06-21 Completed [facility] 00:00:00 [facility] Varicella 2005-06-21 Completed [facility] (varivax)([place]icken 00:00:00 [place] [facility] DTAP 2005-06-21 Completed [facility] 00:00:00 [facility] MMR 2005-06-21 Completed [facility] 00:00:00 [facility] [place] Polio (IPV/OPV) 2005-06-21 Completed [facility] 00:00:00 [facility] Varicella 2005-06-21 Completed [facility] (varivax)(chicken 00:00:00 [place] [facility] DTAP 2005-06-21 Completed [facility] 00:00:00 [facility] MMR 2005-06-21 Completed [facility] 00:00:00 [facility] [place] Polio (IPV/OPV) 2005-06-21 Completed [facility] 00:00:00 [facility] Varicella 2005-06-21 Completed [facility] (varivax)(chicken 00:00:00 [place] [facility] DTAP 2005-06-21 Completed [facility] 00:00:00 [facility] MMR 2005-06-21 Completed [facility] 00:00:00 [facility] Polio (IPV/OPV) 2005-06-21 Completed [facility] 00:00:00 [facility] Varicella 2005-06-21 Completed [facility] (varivax)(chicken 00:00:00 [place] [facility] DTAP 2005-06-21 Completed [facility] 00:00:00 [facility] MMR 2005-06-21 Completed [facility] 00:00:00 [facility] [place] Polio (IPV/OPV) 2005-06-21 Completed [facility] 00:00:00 [facility] Varicella 2005-06-21 Completed [facility] (varivax)(chicken 00:00:00 [place] [facility] DTAP 2005-06-21 Completed [facility] 00:00:00 [facility] DTAP 2005-06-21 Completed [facility] 00:00:00 [facility] MMR 2005-06-21 Completed [facility] 00:00:00 [facility] [place] Polio (IPV/OPV) 2005-06-21 Completed [facility] 00:00:00 [facility] Varicella 2005-06-21 Completed [facility] (varivax)(chicken 00:00:00 [place] [facility] DTAP 2005-06-21 Completed [facility] 00:00:00 [facility] MMR 2005-06-21 Completed [facility] 00:00:00 [facility] Polio (IPV/OPV) 2005-06-21 Completed [facility] 00:00:00 [facility] Varicella 2005-06-21 Completed [facility] (varivax)(chicken 00:00:00 [place] [facility] DTAP 2005-06-21 Completed [facility] 00:00:00 [facility] MMR 2005-06-21 Completed [facility] 00:00:00 [facility] Polio (IPV/OPV) 2005-06-21 Completed [facility] 00:00:00 [facility] Varicella 2005-06-21 Completed [facility] (varivax)(chicken 00:00:00 [place] [facility] DTAP 2005-06-21 Completed [facility] 00:00:00 [facility] MMR 2005-06-21 Completed [facility] 00:00:00 [facility] Polio (IPV/OPV) 2005-06-21 Completed [facility] 00:00:00 [facility] Varicella 2005-06-21 Completed [facility] (varivax)(chicken 00:00:00 [place] [facility] HEPATITIS A 2005-03-04 Completed [facility] 00:00:00 [facility] HEPATITIS A 2005-03-04 Completed [facility] 00:00:00 [facility] HEPATITIS A 2005-03-04 Completed [facility] 00:00:00 [facility] HEPATITIS A 2005-03-04 Completed [facility] 00:00:00 [facility] HEPATITIS A 2005-03-04 Completed [facility] 00:00:00 [facility] HEPATITIS A 2005-03-04 Completed [facility] 00:00:00 [facility] HEPATITIS A 2005-03-04 Completed [facility] 00:00:00 [facility] HEPATITIS A 2005-03-04 Completed [facility] 00:00:00 [facility] HEPATITIS A 2005-03-04 Completed [facility] 00:00:00 [facility] HEPATITIS A 2005-03-04 Completed [facility] 00:00:00 [facility] HEPATITIS A 2005-03-04 Completed [facility] 00:00:00 [facility] HEPATITIS A 2005-03-04 Completed [facility] 00:00:00 [facility] HEPATITIS A 2005-03-04 Completed [facility] 00:00:00 [facility] HEPATITIS A 2005-03-04 Completed [facility] 00:00:00 [facility] HEPATITIS A 2005-03-04 Completed [facility] 00:00:00 [facility] HEPATITIS A 2005-03-04 Completed [facility] 00:00:00 [facility] HEPATITIS A 2005-03-04 Completed [facility] 00:00:00 [facility] HEPATITIS A 2005-03-04 Completed [facility] 00:00:00 [facility] HEPATITIS A 2005-03-04 Completed [facility] 00:00:00 [facility] HEPATITIS A 2005-03-04 Completed [facility] 00:00:00 [facility] HEPATITIS A 2005-03-04 Completed [facility] 00:00:00 [facility] HEPATITIS A 2005-03-04 Completed [facility] 00:00:00 [facility] HEPATITIS A 2005-03-04 Completed [facility] 00:00:00 [facility] HEPATITIS A 2005-03-04 Completed [facility] 00:00:00 [facility] HEPATITIS A 2005-03-04 Completed [facility] 00:00:00 [facility] HEPATITIS A 2005-03-04 Completed [facility] 00:00:00 [facility] HEPATITIS A 2005-03-04 Completed [facility] 00:00:00 [facility] HEPATITIS A 2005-03-04 Completed [facility] 00:00:00 [facility] HEPATITIS A 2005-03-04 Completed [facility] 00:00:00 [facility] HEPATITIS A 2005-03-04 Completed [facility] 00:00:00 [facility] HEPATITIS A 2005-03-04 Completed [facility] 00:00:00 [facility] HEPATITIS A 2005-03-04 Completed [facility] 00:00:00 [facility] HEPATITIS A 2005-03-04 Completed [facility] 00:00:00 [facility] HEPATITIS A 2005-03-04 Completed [facility] 00:00:00 [facility] HEPATITIS A 2005-03-04 Completed [facility] 00:00:00 [facility] HEPATITIS A 2005-03-04 Completed [facility] 00:00:00 [facility] HEPATITIS A 2005-03-04 Completed [facility] 00:00:00 [facility] HEPATITIS A 2005-03-04 Completed [facility] 00:00:00 [facility] HEPATITIS A 2005-03-04 Completed [facility] 00:00:00 [facility] HEPATITIS A 2005-03-04 Completed [facility] 00:00:00 [facility] HEPATITIS A 2005-03-04 Completed [facility] 00:00:00 [facility] HEPATITIS A 2005-03-04 Completed [facility] 00:00:00 [facility] HEPATITIS A 2005-03-04 Completed [facility] 00:00:00 [facility] HEPATITIS A 2005-03-04 Completed [facility] 00:00:00 [facility] HEPATITIS A 2005-03-04 Completed [facility] 00:00:00 [facility] HEPATITIS A 2005-03-04 Completed [facility] 00:00:00 [facility] HEPATITIS A 2005-03-04 Completed [facility] 00:00:00 [facility] HEPATITIS A 2005-03-04 Completed [facility] 00:00:00 [facility] HEPATITIS A 2005-03-04 Completed [facility] 00:00:00 [facility] HEPATITIS A 2005-03-04 Completed [facility] 00:00:00 [facility] DTAP 2002-05-29 Completed [facility] 00:00:00 [facility] HIB 4 Dose Schedule 2002-05-29 Completed [facility]ive rs[facility] 00:00:00 [facility] Pneumococcal 7 2002-05-29 Completed [facility] of Conjugate, PCV7 00:00:00 [place] [facility] (Prevnar[facility] DTAP 2002-05-29 Completed [facility] 00:00:00 [facility] HIB 4 Dose Schedule 2002-05-29 Completed [facility]ive rs[facility] 00:00:00 [facility] Pneumococcal 7 2002-05-29 Completed [facility] Conjugate, PCV7 00:00:00 [place] [facility] (Prevnar7) [facility] Pneumococcal 7 2002-05-29 Completed [facility] Conjugate, PCV7 00:00:00 [place] [facility] (Prevnar7) [facility] DTAP 2002-05-29 Completed [facility] 00:00:00 [facility] HIB 4 Dose Schedule 2002-05-29 Completed [facility]ive rs[facility] 00:00:00 [facility] Pneumococcal 7 2002-05-29 Completed [facility] Conjugate, PCV7 00:00:00 [place] [facility] (Prevnar7) [facility] DTAP 2002-05-29 Completed [facility] 00:00:00 [facility] HIB 4 Dose Schedule 2002-05-29 Completed [facility] rs[facility] 00:00:00 [facility] Pneumococcal 7 2002-05-29 Completed [facility] Conjugate, PCV7 00:00:00 [place] [facility] (Prevnar7) [facility] DTAP 2002-05-29 Completed [facility] 00:00:00 [facility] HIB 4 Dose Schedule 2002-05-29 Completed [facility] rs[facility] of 00:00:00 [facility] Pneumococcal 7 2002-05-29 Completed [facility] Conjugate, PCV7 00:00:00 [place] [facility] (Prevnar7) [facility] DTAP 2002-05-29 Completed [facility] 00:00:00 [facility] HIB 4 Dose Schedule 2002-05-29 Completed [facility]ive rs[facility] 00:00:00 [facility] Pneumococcal 7 2002-05-29 Completed [facility] Conjugate, PCV7 00:00:00 [place] [facility] (Prevnar7) [facility] DTAP 2002-05-29 Completed [facility] 00:00:00 [facility] HIB 4 Dose Schedule 2002-05-29 Completed [facility]ive rs[facility] 00:00:00 [facility] DTAP 2002-05-29 Completed [facility] 00:00:00 [facility] Pneumococcal 7 2002-05-29 Completed [facility] Conjugate, PCV7 00:00:00 [facility] (Pre[facility] DTAP 2002-05-29 Completed [facility] 00:00:00 [facility] HIB 4 Dose Schedule 2002-05-29 Completed [facility] 00:00:00 [facility] Pneumococcal 7 2002-05-29 Completed [facility] Conjugate, PCV7 00:00:00 [facility] ([facility] HIB 4 Dose Schedule 2002-05-29 Completed [facility] 00:00:00 [facility] DTAP 2002-05-29 Completed [facility] 00:00:00 [facility] HIB 4 Dose Schedule 2002-05-29 Completed [facility] 00:00:00 [facility] Pneumococcal 7 2002-05-29 Completed [facility] Conjugate, PCV7 00:00:00 [facility] (Pre[facility]ar[facility] DTAP 2002-05-29 Completed [facility] 00:00:00 [facility] HIB 4 Dose Schedule 2002-05-29 Completed [facility] 00:00:00 [facility] Pneumococcal 7 2002-05-29 Completed [facility] Conjugate, PCV7 00:00:00 [facility] (Pre[facility] DTAP 2002-05-29 Completed [facility] 00:00:00 [facility] HIB 4 Dose Schedule 2002-05-29 Completed [facility] 00:00:00 [facility] Pneumococcal 7 2002-05-29 Completed [facility] Conjugate, PCV7 00:00:00 [facility] DTAP 2002-05-29 Completed [facility] 00:00:00 [facility] HIB 4 Dose Schedule 2002-05-29 Completed [facility] 00:00:00 [facility] Pneumococcal 7 2002-05-29 Completed [facility] Conjugate, PCV7 00:00:00 [facility] ([facility]ar[facility] DTAP 2002-05-29 Completed [facility] 00:00:00 [facility] Pneumococcal 7 2002-05-29 Completed [facility] Conjugate, PCV7 00:00:00 [facility] ([facility]ar[facility] HIB 4 Dose Schedule 2002-05-29 Completed [facility] 00:00:00 [facility] Pneumococcal 7 2002-05-29 Completed [facility] Conjugate, PCV7 00:00:00 [facility] ([facility]ar[facility] DTAP 2002-05-29 Completed [facility] 00:00:00 [facility] HIB 4 Dose Schedule 2002-05-29 Completed [facility] 00:00:00 [facility] Pneumococcal 7 2002-05-29 Completed [facility] Conjugate, PCV7 00:00:00 [facility]ar[facility] DTAP 2002-05-29 Completed [facility] 00:00:00 [facility] HIB 4 Dose Schedule 2002-05-29 Completed [facility] 00:00:00 [facility] Pneumococcal 7 2002-05-29 Completed [facility] Conjugate, PCV7 00:00:00 [facility] DTAP 2002-05-29 Completed [facility] 00:00:00 [facility] HIB 4 Dose Schedule 2002-05-29 Completed [facility] 00:00:00 [facility] DTAP 2002-05-29 Completed [facility] 00:00:00 [facility] Pneumococcal 7 2002-05-29 Completed [facility] Conjugate, PCV7 00:00:00 [facility] DTAP 2002-05-29 Completed [facility] 00:00:00 [facility] HIB 4 Dose Schedule 2002-05-29 Completed [facility] 00:00:00 [facility] HIB 4 Dose Schedule 2002-05-29 Completed [facility] 00:00:00 [facility] Pneumococcal 7 2002-05-29 Completed [facility] Conjugate, PCV7 00:00:00 [facility] DTAP 2002-05-29 Completed [facility] 00:00:00 [facility] HIB 4 Dose Schedule 2002-05-29 Completed [facility] 00:00:00 [facility] Pneumococcal 7 2002-05-29 Completed [facility] Conjugate, PCV7 00:00:00 [facility]ar[facility] DTAP 2002-05-29 Completed [facility] 00:00:00 [facility] HIB 4 Dose Schedule 2002-05-29 Completed [facility] 00:00:00 [facility] Pneumococcal 7 2002-05-29 Completed [facility] Conjugate, PCV7 00:00:00 [facility]Pre[facility]ar[facility] DTAP 2002-05-29 Completed [facility] 00:00:00 [facility] HIB 4 Dose Schedule 2002-05-29 Completed [facility] 00:00:00 [facility] Pneumococcal 7 2002-05-29 Completed [facility] Conjugate, PCV7 00:00:00 [facility]Pre[facility]ar[facility] DTAP 2002-05-29 Completed [facility] 00:00:00 [facility] HIB 4 Dose Schedule 2002-05-29 Completed [facility] 00:00:00 [facility] Pneumococcal 7 2002-05-29 Completed [facility] Conjugate, PCV7 00:00:00 [facility] ([facility]ar[facility] Pneumococcal 7 2002-05-29 Completed [facility] Conjugate, PCV7 00:00:00 [facility] (Prevnar[facility] DTAP 2002-05-29 Completed [facility] 00:00:00 [facility] HIB 4 Dose Schedule 2002-05-29 Completed [facility] 00:00:00 [facility] Pneumococcal 7 2002-05-29 Completed [facility] Conjugate, PCV7 00:00:00 [facility] (Prevnar[facility] DTAP 2002-05-29 Completed [facility] 00:00:00 [facility] HIB 4 Dose Schedule 2002-05-29 Completed [facility] 00:00:00 [facility] Pneumococcal 7 2002-05-29 Completed [facility] Conjugate, PCV7 00:00:00 [facility]Pre[facility]ar[facility] DTAP 2002-05-29 Completed [facility] 00:00:00 [facility] HIB 4 Dose Schedule 2002-05-29 Completed [facility] 00:00:00 [facility] Pneumococcal 7 2002-05-29 Completed [facility] Conjugate, PCV7 00:00:00 [facility] (Prevnar[facility] DTAP 2002-05-29 Completed [facility] 00:00:00 [facility] HIB 4 Dose Schedule 2002-05-29 Completed [facility] 00:00:00 [facility] DTAP 2002-05-29 Completed [facility] 00:00:00 [facility] Pneumococcal 7 2002-05-29 Completed [facility] Conjugate, PCV7 00:00:00 [facility] (Prevnar[facility] DTAP 2002-05-29 Completed [facility] 00:00:00 [facility] HIB 4 Dose Schedule 2002-05-29 Completed [facility] 00:00:00 [facility] HIB 4 Dose Schedule 2002-05-29 Completed [facility] 00:00:00 [facility] Pneumococcal 7 2002-05-29 Completed [facility] Conjugate, PCV7 00:00:00 [facility] ([facility]ar[facility] Pneumococcal 7 2002-05-29 Completed [facility] Conjugate, PCV7 00:00:00 [facility] (Pre[facility]ar[facility] DTAP 2002-05-29 Completed [facility] 00:00:00 [facility] HIB 4 Dose Schedule 2002-05-29 Completed [facility] 00:00:00 [facility] Pneumococcal 7 2002-05-29 Completed [facility] Conjugate, PCV7 00:00:00 [facility] (Prevnar[facility] DTAP 2002-05-29 Completed [facility] 00:00:00 [facility] HIB 4 Dose Schedule 2002-05-29 Completed [facility] 00:00:00 [facility] Pneumococcal 7 2002-05-29 Completed [facility] Conjugate, PCV7 00:00:00 [facility] (Prevnar[facility] DTAP 2002-05-29 Completed [facility] 00:00:00 [facility] HIB 4 Dose Schedule 2002-05-29 Completed [facility] 00:00:00 [facility] Pneumococcal 7 2002-05-29 Completed [facility] Conjugate, PCV7 00:00:00 [facility] (Prevnar[facility] DTAP 2002-05-29 Completed [facility] 00:00:00 [facility] HIB 4 Dose Schedule 2002-05-29 Completed [facility] 00:00:00 [facility] Pneumococcal 7 2002-05-29 Completed [facility] Conjugate, PCV7 00:00:00 [facility] (Prevnar[facility] DTAP 2002-05-29 Completed [facility] 00:00:00 [facility] HIB 4 Dose Schedule 2002-05-29 Completed [facility] 00:00:00 [facility] Pneumococcal 7 2002-05-29 Completed [facility] Conjugate, PCV7 00:00:00 [facility] (Prevnar[facility] DTAP 2002-05-29 Completed [facility] 00:00:00 [facility] HIB 4 Dose Schedule 2002-05-29 Completed [facility] 00:00:00 [facility] Pneumococcal 7 2002-05-29 Completed [facility] Conjugate, PCV7 00:00:00 [facility] (Prevnar[facility] DTAP 2002-05-29 Completed [facility] 00:00:00 [facility] HIB 4 Dose Schedule 2002-05-29 Completed [facility] 00:00:00 [facility] Pneumococcal 7 2002-05-29 Completed [facility] Conjugate, PCV7 00:00:00 [facility] (Prevnar[facility] DTAP 2002-05-29 Completed [facility] 00:00:00 [facility] HIB 4 Dose Schedule 2002-05-29 Completed [facility] 00:00:00 [facility] Pneumococcal 7 2002-05-29 Completed [facility] Conjugate, PCV7 00:00:00 [facility] (Prevnar[facility] DTAP 2002-05-29 Completed [facility] 00:00:00 [facility] HIB 4 Dose Schedule 2002-05-29 Completed [facility] 00:00:00 [facility] Pneumococcal 7 2002-05-29 Completed [facility] Conjugate, PCV7 00:00:00 [facility] (Prevnar[facility] DTAP 2002-05-29 Completed [facility] 00:00:00 [facility] HIB 4 Dose Schedule 2002-05-29 Completed [facility] 00:00:00 [facility] Pneumococcal 7 2002-05-29 Completed [facility] Conjugate, PCV7 00:00:00 [facility] (Prevnar[facility] DTAP 2002-05-29 Completed [facility] 00:00:00 [facility] HIB 4 Dose Schedule 2002-05-29 Completed [facility] 00:00:00 [facility] Pneumococcal 7 2002-05-29 Completed [facility] Conjugate, PCV7 00:00:00 [facility] (Prevnar[facility] DTAP 2002-05-29 Completed [facility] 00:00:00 [facility] HIB 4 Dose Schedule 2002-05-29 Completed [facility] 00:00:00 [facility] Pneumococcal 7 2002-05-29 Completed [facility] Conjugate, PCV7 00:00:00 [facility] (Prevnar[facility] DTAP 2002-05-29 Completed [facility] 00:00:00 [facility] HIB 4 Dose Schedule 2002-05-29 Completed [facility] 00:00:00 [facility] Pneumococcal 7 2002-05-29 Completed [facility] Conjugate, PCV7 00:00:00 [facility] (Prevnar[facility] DTAP 2002-05-29 Completed [facility] 00:00:00 [facility] HIB 4 Dose Schedule 2002-05-29 Completed [facility] 00:00:00 [facility] Pneumococcal 7 2002-05-29 Completed [facility] Conjugate, PCV7 00:00:00 [facility] (Prevnar[facility] DTAP 2002-05-29 Completed [facility] 00:00:00 [facility] HIB 4 Dose Schedule 2002-05-29 Completed [facility] 00:00:00 [facility] Pneumococcal 7 2002-05-29 Completed [facility] Conjugate, PCV7 00:00:00 [facility] (Prevnar[facility] DTAP 2002-05-29 Completed [facility] 00:00:00 [facility] HIB 4 Dose Schedule 2002-05-29 Completed [facility] 00:00:00 [facility] Pneumococcal 7 2002-05-29 Completed [facility] Conjugate, PCV7 00:00:00 [facility] (Prevnar[facility] DTAP 2002-05-29 Completed [facility] 00:00:00 [facility] DTAP 2002-05-29 Completed [facility] 00:00:00 [facility] HIB 4 Dose Schedule 2002-05-29 Completed [facility] 00:00:00 [facility] Pneumococcal 7 2002-05-29 Completed [facility] Conjugate, PCV7 00:00:00 [facility] (Prevnar[facility] DTAP 2002-05-29 Completed [facility] 00:00:00 [facility] HIB 4 Dose Schedule 2002-05-29 Completed [facility] 00:00:00 [facility] HIB 4 Dose Schedule 2002-05-29 Completed [facility] 00:00:00 [facility] Pneumococcal 7 2002-05-29 Completed [facility] Conjugate, PCV7 00:00:00 [facility] (Prevnar[facility] DTAP 2002-05-29 Completed [facility] 00:00:00 [facility] HIB 4 Dose Schedule 2002-05-29 Completed [facility] 00:00:00 [facility] Pneumococcal 7 2002-05-29 Completed [facility] Conjugate, PCV7 00:00:00 [facility] (Prevnar7[facility] DTAP 2002-05-29 Completed [facility] 00:00:00 [facility] HIB 4 Dose Schedule 2002-05-29 Completed [facility] 00:00:00 [facility] Pneumococcal 7 2002-05-29 Completed [facility] Conjugate, PCV7 00:00:00 [facility] (Prevnar[facility] DTAP 2002-01-19 Completed [facility] 00:00:00 [facility] HIB 4 Dose Schedule 2002-01-19 Completed [facility] 00:00:00 [facility] MMR 2002-01-19 Completed [facility] 00:00:00 [facility] Polio (IPV/OPV) 2002-01-19 Completed [facility] 00:00:00 [facility] Polio (IPV/OPV) 2002-01-19 Completed [facility] 00:00:00 [facility] DTAP 2002-01-19 Completed [facility] 00:00:00 [facility] HIB 4 Dose Schedule 2002-01-19 Completed [facility] 00:00:00 [facility] MMR 2002-01-19 Completed [facility] 00:00:00 [facility] Polio (IPV/OPV) 2002-01-19 Completed [facility] 00:00:00 [facility] DTAP 2002-01-19 Completed [facility] 00:00:00 [facility] HIB 4 Dose Schedule 2002-01-19 Completed [facility] 00:00:00 [facility] MMR 2002-01-19 Completed [facility] 00:00:00 [facility] Polio (IPV/OPV) 2002-01-19 Completed [facility] 00:00:00 [facility] DTAP 2002-01-19 Completed [facility] 00:00:00 [facility] HIB 4 Dose Schedule 2002-01-19 Completed [facility] 00:00:00 [facility] MMR 2002-01-19 Completed [facility] 00:00:00 [facility] Polio (IPV/OPV) 2002-01-19 Completed [facility] 00:00:00 [facility] DTAP 2002-01-19 Completed [facility] 00:00:00 [facility] HIB 4 Dose Schedule 2002-01-19 Completed [facility] 00:00:00 [facility] MMR 2002-01-19 Completed [facility] 00:00:00 [facility] Polio (IPV/OPV) 2002-01-19 Completed [facility] 00:00:00 [facility] DTAP 2002-01-19 Completed [facility] 00:00:00 [facility] HIB 4 Dose Schedule 2002-01-19 Completed [facility] 00:00:00 [facility] MMR 2002-01-19 Completed [facility] 00:00:00 [facility] Polio (IPV/OPV) 2002-01-19 Completed [facility] 00:00:00 [facility] DTAP 2002-01-19 Completed [facility] 00:00:00 [facility] HIB 4 Dose Schedule 2002-01-19 Completed [facility] 00:00:00 [facility] DTAP 2002-01-19 Completed [facility] 00:00:00 [facility] MMR 2002-01-19 Completed [facility] 00:00:00 [facility] Polio (IPV/OPV) 2002-01-19 Completed [facility] 00:00:00 [facility] DTAP 2002-01-19 Completed [facility] 00:00:00 [facility] HIB 4 Dose Schedule 2002-01-19 Completed [facility] 00:00:00 [facility] MMR 2002-01-19 Completed [facility] 00:00:00 [facility] Polio (IPV/OPV) 2002-01-19 Completed [facility] 00:00:00 [facility] HIB 4 Dose Schedule 2002-01-19 Completed [facility] 00:00:00 [facility] DTAP 2002-01-19 Completed [facility] 00:00:00 [facility] HIB 4 Dose Schedule 2002-01-19 Completed [facility] 00:00:00 [facility] MMR 2002-01-19 Completed [facility] 00:00:00 [facility] Polio (IPV/OPV) 2002-01-19 Completed [facility] 00:00:00 [facility] DTAP 2002-01-19 Completed [facility] 00:00:00 [facility] HIB 4 Dose Schedule 2002-01-19 Completed [facility] 00:00:00 [facility] MMR 2002-01-19 Completed [facility] 00:00:00 [facility] Polio (IPV/OPV) 2002-01-19 Completed [facility] 00:00:00 [facility] DTAP 2002-01-19 Completed [facility] 00:00:00 [facility] MMR 2002-01-19 Completed [facility] 00:00:00 [facility] HIB 4 Dose Schedule 2002-01-19 Completed [facility] 00:00:00 [facility] MMR 2002-01-19 Completed [facility] 00:00:00 [facility] Polio (IPV/OPV) 2002-01-19 Completed [facility] 00:00:00 [facility] DTAP 2002-01-19 Completed [facility] 00:00:00 [facility] Polio (IPV/OPV) 2002-01-19 Completed [facility] 00:00:00 [facility] HIB 4 Dose Schedule 2002-01-19 Completed [facility] 00:00:00 [facility] MMR 2002-01-19 Completed [facility] 00:00:00 [facility] Polio (IPV/OPV) 2002-01-19 Completed [facility] 00:00:00 [facility] DTAP 2002-01-19 Completed [facility] 00:00:00 [facility] HIB 4 Dose Schedule 2002-01-19 Completed [facility] 00:00:00 [facility] MMR 2002-01-19 Completed [facility] 00:00:00 [facility] Polio (IPV/OPV) 2002-01-19 Completed [facility] 00:00:00 [facility] DTAP 2002-01-19 Completed [facility] 00:00:00 [facility] HIB 4 Dose Schedule 2002-01-19 Completed [facility] 00:00:00 [facility] MMR 2002-01-19 Completed [facility] 00:00:00 [facility] Polio (IPV/OPV) 2002-01-19 Completed [facility] 00:00:00 [facility] DTAP 2002-01-19 Completed [facility] 00:00:00 [facility] HIB 4 Dose Schedule 2002-01-19 Completed [facility] 00:00:00 [facility] MMR 2002-01-19 Completed [facility] 00:00:00 [facility] Polio (IPV/OPV) 2002-01-19 Completed [facility] 00:00:00 [facility] DTAP 2002-01-19 Completed [facility] 00:00:00 [facility] DTAP 2002-01-19 Completed [facility] 00:00:00 [facility] HIB 4 Dose Schedule 2002-01-19 Completed [facility] 00:00:00 [facility] MMR 2002-01-19 Completed [facility] 00:00:00 [facility] Polio (IPV/OPV) 2002-01-19 Completed [facility] 00:00:00 [facility] DTAP 2002-01-19 Completed [facility] 00:00:00 [facility] HIB 4 Dose Schedule 2002-01-19 Completed [facility] 00:00:00 [facility] HIB 4 Dose Schedule 2002-01-19 Completed [facility] 00:00:00 [facility] MMR 2002-01-19 Completed [facility] 00:00:00 [facility] Polio (IPV/OPV) 2002-01-19 Completed [facility] 00:00:00 [facility] DTAP 2002-01-19 Completed [facility] 00:00:00 [facility] HIB 4 Dose Schedule 2002-01-19 Completed [facility] 00:00:00 [facility] MMR 2002-01-19 Completed [facility] 00:00:00 [facility] Polio (IPV/OPV) 2002-01-19 Completed [facility] 00:00:00 [facility] DTAP 2002-01-19 Completed [facility] 00:00:00 [facility] HIB 4 Dose Schedule 2002-01-19 Completed [facility] 00:00:00 [facility] MMR 2002-01-19 Completed [facility] 00:00:00 [facility] Polio (IPV/OPV) 2002-01-19 Completed [facility] 00:00:00 [facility] MMR 2002-01-19 Completed [facility] 00:00:00 [facility] DTAP 2002-01-19 Completed [facility] 00:00:00 [facility] HIB 4 Dose Schedule 2002-01-19 Completed [facility] 00:00:00 [facility] MMR 2002-01-19 Completed [facility] 00:00:00 [facility] Polio (IPV/OPV) 2002-01-19 Completed [facility] 00:00:00 [facility] Polio (IPV/OPV) 2002-01-19 Completed [facility] 00:00:00 [facility] DTAP 2002-01-19 Completed [facility] 00:00:00 [facility] HIB 4 Dose Schedule 2002-01-19 Completed [facility] 00:00:00 [facility] MMR 2002-01-19 Completed [facility] 00:00:00 [facility] Polio (IPV/OPV) 2002-01-19 Completed [facility] 00:00:00 [facility] DTAP 2002-01-19 Completed [facility] 00:00:00 [facility] HIB 4 Dose Schedule 2002-01-19 Completed [facility] 00:00:00 [facility] MMR 2002-01-19 Completed [facility] 00:00:00 [facility] Polio (IPV/OPV) 2002-01-19 Completed [facility] 00:00:00 [facility] DTAP 2002-01-19 Completed [facility] 00:00:00 [facility] HIB 4 Dose Schedule 2002-01-19 Completed [facility] 00:00:00 [facility] MMR 2002-01-19 Completed [facility] 00:00:00 [facility] Polio (IPV/OPV) 2002-01-19 Completed [facility] 00:00:00 [facility] DTAP 2002-01-19 Completed [facility] 00:00:00 [facility] HIB 4 Dose Schedule 2002-01-19 Completed [facility] 00:00:00 [facility] MMR 2002-01-19 Completed [facility] 00:00:00 [facility] Polio (IPV/OPV) 2002-01-19 Completed [facility] 00:00:00 [facility] DTAP 2002-01-19 Completed [facility] 00:00:00 [facility] DTAP 2002-01-19 Completed [facility] 00:00:00 [facility] HIB 4 Dose Schedule 2002-01-19 Completed [facility] 00:00:00 [facility] MMR 2002-01-19 Completed [facility] 00:00:00 [facility] Polio (IPV/OPV) 2002-01-19 Completed [facility] 00:00:00 [facility] DTAP 2002-01-19 Completed [facility] 00:00:00 [facility] HIB 4 Dose Schedule 2002-01-19 Completed [facility] 00:00:00 [facility] HIB 4 Dose Schedule 2002-01-19 Completed [facility] 00:00:00 [facility] MMR 2002-01-19 Completed [facility] 00:00:00 [facility] Polio (IPV/OPV) 2002-01-19 Completed [facility] 00:00:00 [facility] MMR 2002-01-19 Completed [facility] 00:00:00 [facility] Polio (IPV/OPV) 2002-01-19 Completed [facility] 00:00:00 [facility] DTAP 2002-01-19 Completed [facility] 00:00:00 [facility] HIB 4 Dose Schedule 2002-01-19 Completed [facility] 00:00:00 [facility] MMR 2002-01-19 Completed [facility] 00:00:00 [facility] Polio (IPV/OPV) 2002-01-19 Completed [facility] 00:00:00 [facility] DTAP 2002-01-19 Completed [facility] 00:00:00 [facility] HIB 4 Dose Schedule 2002-01-19 Completed [facility] 00:00:00 [facility] MMR 2002-01-19 Completed [facility] 00:00:00 [facility] Polio (IPV/OPV) 2002-01-19 Completed [facility] 00:00:00 [facility] DTAP 2002-01-19 Completed [facility] 00:00:00 [facility] HIB 4 Dose Schedule 2002-01-19 Completed [facility] 00:00:00 [facility] MMR 2002-01-19 Completed [facility] 00:00:00 [facility] Polio (IPV/OPV) 2002-01-19 Completed [facility] 00:00:00 [facility] DTAP 2002-01-19 Completed [facility] 00:00:00 [facility] HIB 4 Dose Schedule 2002-01-19 Completed [facility] 00:00:00 [facility] MMR 2002-01-19 Completed [facility] 00:00:00 [facility] Polio (IPV/OPV) 2002-01-19 Completed [facility] 00:00:00 [facility] DTAP 2002-01-19 Completed [facility] 00:00:00 [facility] HIB 4 Dose Schedule 2002-01-19 Completed [facility] 00:00:00 [facility] MMR 2002-01-19 Completed [facility] 00:00:00 [facility] Polio (IPV/OPV) 2002-01-19 Completed [facility] 00:00:00 [facility] DTAP 2002-01-19 Completed [facility] 00:00:00 [facility] HIB 4 Dose Schedule 2002-01-19 Completed [facility] 00:[facility]00 [facility] MMR 2002-01-19 Completed [facility]:00 [facility] Polio (IPV/OPV) 2002-01-19 Completed [facility] 00:[facility]:00 [facility] DTAP 2002-01-19 Completed [facility] 00:00:00 [facility] HIB 4 Dose Schedule 2002-01-19 Completed [facility] 00:00:00 [facility] MMR 2002-01-19 Completed [facility] 00:00:00 [facility] Polio (IPV/OPV) 2002-01-19 Completed [facility] 00:00:00 [facility] DTAP 2002-01-19 Completed [facility] 00:00:00 [facility] HIB 4 Dose Schedule 2002-01-19 Completed [facility] 00:00:00 [facility] MMR 2002-01-19 Completed [facility] 00:00:00 [facility] Polio (IPV/OPV) 2002-01-19 Completed [facility] 00:00:00 [facility] DTAP 2002-01-19 Completed [facility] 00:00:00 [facility] HIB 4 Dose Schedule 2002-01-19 Completed [facility] 00:00:00 [facility] MMR 2002-01-19 Completed [facility] 00:00:00 [facility] Polio (IPV/OPV) 2002-01-19 Completed [facility] 00:00:00 [facility] DTAP 2002-01-19 Completed [facility] 00:00:00 [facility] HIB 4 Dose Schedule 2002-01-19 Completed [facility] 00:00:00 [facility] MMR 2002-01-19 Completed [facility] 00:00:00 [facility] Polio (IPV/OPV) 2002-01-19 Completed [facility] 00:00:00 [facility] DTAP 2002-01-19 Completed [facility] 00:00:00 [facility] HIB 4 Dose Schedule 2002-01-19 Completed [facility] 00:00:00 [facility] MMR 2002-01-19 Completed [facility] 00:00:00 [facility] Polio (IPV/OPV) 2002-01-19 Completed [facility] 00:00:00 [facility] DTAP 2002-01-19 Completed [facility] 00:00:00 [facility] HIB 4 Dose Schedule 2002-01-19 Completed [facility] 00:00:00 [facility] MMR 2002-01-19 Completed [facility] 00:00:00 [facility] Polio (IPV/OPV) 2002-01-19 Completed [facility] 00:00:00 [facility] DTAP 2002-01-19 Completed [facility] 00:00:00 [facility] HIB 4 Dose Schedule 2002-01-19 Completed [facility] 00:00:00 [facility] MMR 2002-01-19 Completed [facility] 00:00:00 [facility] Polio (IPV/OPV) 2002-01-19 Completed [facility] 00:00:00 [facility] DTAP 2002-01-19 Completed [facility] 00:00:00 [facility] HIB 4 Dose Schedule 2002-01-19 Completed [facility] 00:00:00 [facility] MMR 2002-01-19 Completed [facility] 00[facility]00:00 [facility] Polio (IPV/OPV) 2002-01-19 Completed [facility] 00:00:00 [facility] DTAP 2002-01-19 Completed [facility] 00:00:00 [facility] HIB 4 Dose Schedule 2002-01-19 Completed [facility] 00:00:00 [facility] MMR 2002-01-19 Completed [facility] 00:00:00 [facility] Polio (IPV/OPV) 2002-01-19 Completed [facility] 00:00:00 [facility] DTAP 2002-01-19 Completed [facility] 00:00:00 [facility] HIB 4 Dose Schedule 2002-01-19 Completed [facility] 00:00:00 [facility] MMR 2002-01-19 Completed [facility] 00:00:00 [facility] DTAP 2002-01-19 Completed [facility] 00:00:00 [facility] Polio (IPV/OPV) 2002-01-19 Completed [facility] 00:00:00 [facility] DTAP 2002-01-19 Completed [facility] 00:00:00 [facility] HIB 4 Dose Schedule 2002-01-19 Completed [facility] 00:00:00 [facility] MMR 2002-01-19 Completed [facility] 00:00:00 [facility] Polio (IPV/OPV) 2002-01-19 Completed [facility] 00:00:00 [facility] HIB 4 Dose Schedule 2002-01-19 Completed [facility] 00:00:00 [facility] DTAP 2002-01-19 Completed [facility] 00:00:00 [facility] HIB 4 Dose Schedule 2002-01-19 Completed [facility] 00:00:00 [facility] MMR 2002-01-19 Completed [facility] 00:00:00 [facility] Polio (IPV/OPV) 2002-01-19 Completed [facility] 00:00:00 [facility] DTAP 2002-01-19 Completed [facility] 00:00:00 [facility] HIB 4 Dose Schedule 2002-01-19 Completed [facility] 00:00:00 [facility] MMR 2002-01-19 Completed [facility] 00:00:00 [facility] Polio (IPV/OPV) 2002-01-19 Completed [facility] 00:00:00 [facility] DTAP 2002-01-19 Completed [facility] 00:00:00 [facility] HIB 4 Dose Schedule 2002-01-19 Completed [facility] 00:00:00 [facility] MMR 2002-01-19 Completed [facility] 00:00:00 [facility] MMR 2002-01-19 Completed [facility] 00:00:00 [facility] Polio (IPV/OPV) 2002-01-19 Completed [facility] 00:00:00 [facility] DTAP 2001 Completed [facility] 00:00:00 [facility] HIB 4 Dose Schedule 2001 Completed [facility] 00:00:00 [facility] Polio (IPV/OPV) 2001 Completed [facility] 00:00:00 [facility] Hep B, Adol or Pedi 2001 Completed [facility] Dosage 00:00:00 [facility] Polio (IPV/OPV) 2001 Completed [facility] 00:00:00 [facility] DTAP 2001 Completed [facility] 00:00:00 [facility] HIB 4 Dose Schedule 2001 Completed [facility] 00:00:00 [facility] Hep B, Adol or Pedi 2001 Completed [facility] Dosage 00:00:00 [facility] Polio (IPV/OPV) 2001 Completed [facility] 00:00:00 [facility] DTAP 2001 Completed [facility] 00:00:00 [facility] HIB 4 Dose Schedule 2001 Completed [facility] 00:00:00 [facility] Hep B, Adol or Pedi 2001 Completed [facility] Dosage 00:00:00 [facility] Polio (IPV/OPV) 2001 Completed [facility] 00:00:00 [facility] DTAP 2001 Completed [facility] 00:00:00 [facility] HIB 4 Dose Schedule 2001 Completed [facility] 00:00:00 [facility] Hep B, Adol or Pedi 2001 Completed [facility] Dosage 00:00:00 [facility] Polio (IPV/OPV) 2001 Completed [facility] 00:00:00 [facility] DTAP 2001 Completed [facility] 00:00:00 [facility] HIB 4 Dose Schedule 2001 Completed [facility] 00:00:00 [facility] Hep B, Adol or Pedi 2001 Completed [facility] Dosage 00:00:00 [facility] Polio (IPV/OPV) 2001 Completed [facility] 00:00:00 [facility] DTAP 2001 Completed [facility] 00:00:00 [facility] HIB 4 Dose Schedule 2001 Completed [facility] 00:00:00 [facility] Hep B, Adol or Pedi 2001 Completed [facility] Dosage 00:00:00 [facility] Polio (IPV/OPV) 2001 Completed [facility] 00:00:00 [facility] DTAP 2001 Completed [facility] 00:00:00 [facility] DTAP 2001 Completed [facility] 00:00:00 [facility] HIB 4 Dose Schedule 2001 Completed [facility] 00:00:00 [facility] Hep B, Adol or Pedi 2001 Completed [facility] Dosage 00:00:00 [facility] Polio (IPV/OPV) 2001 Completed [facility] 00:00:00 [facility] DTAP 2001 Completed [facility] 00:00:00 [facility] HIB 4 Dose Schedule 2001 Completed [facility] 00:00:00 [facility] Hep B, Adol or Pedi 2001 Completed [facility] Dosage 00:00:00 [facility] HIB 4 Dose Schedule 2001 Completed [facility] 00:00:00 [facility] Polio (IPV/OPV) 2001 Completed [facility] 00:00:00 [facility] DTAP 2001 Completed [facility] 00:00:00 [facility] HIB 4 Dose Schedule 2001 Completed [facility] 00:00:00 [facility] Hep B, Adol or Pedi 2001 Completed [facility] Dosage 00:00:00 [facility] Polio (IPV/OPV) 2001 Completed [facility] 00:00:00 [facility] DTAP 2001 Completed [facility] 00:00:00 [facility] Hep B, Adol or Pedi 2001 Completed [facility] Dosage 00:00:00 [facility] HIB 4 Dose Schedule 2001 Completed [facility] 00:00:00 [facility] Hep B, Adol or Pedi 2001 Completed [facility] Dosage 00:00:00 [facility] Polio (IPV/OPV) 2001 Completed [facility] 00:00:00 [facility] DTAP 2001 Completed [facility] 00:00:00 [facility] HIB 4 Dose Schedule 2001 Completed [facility] 00:00:00 [facility] Hep B, Adol or Pedi 2001 Completed [facility] Dosage 00:00:00 [facility] Polio (IPV/OPV) 2001 Completed [facility] 00:00:00 [facility] Polio (IPV/OPV) 2001 Completed [facility] 00[facility]00:00 [facility] DTAP 2001 Completed [facility] 00:00:00 [facility] HIB 4 Dose Schedule 2001 Completed [facility] 00:00:00 [facility] Hep B, Adol or Pedi 2001 Completed [facility] Dosage 00:00:00 [facility] Polio (IPV/OPV) 2001 Completed [facility] 00:00:00 [facility] DTAP 2001 Completed [facility] 00:00:00 [facility] HIB 4 Dose Schedule 2001 Completed [facility] 00:00:00 [facility] Hep B, Adol or Pedi 2001 Completed [facility] Dosage 00:00:00 [facility] Polio (IPV/OPV) 2001 Completed [facility] 00:00:00 [facility] DTAP 2001 Completed [facility] 00:00:00 [facility] HIB 4 Dose Schedule 2001 Completed [facility] 00:00:00 [facility] Hep B, Adol or Pedi 2001 Completed [facility] Dosage 00:00:00 [facility] Polio (IPV/OPV) 2001 Completed [facility] 00:00:00 [facility] DTAP 2001 Completed [facility] 00:00:00 [facility] HIB 4 Dose Schedule 2001 Completed [facility] 00:00:00 [facility] Hep B, Adol or Pedi 2001 Completed [facility] Dosage 00:00:00 [facility] Polio (IPV/OPV) 2001 Completed [facility] 00:00:00 [facility] DTAP 2001 Completed [facility] 00[facility]00:00 [facility] DTAP 2001 Completed [facility] 00:00:00 [facility] HIB 4 Dose Schedule 2001 Completed [facility] 00:00:00 [facility] Hep B, Adol or Pedi 2001 Completed [facility] Dosage 00:00:00 [facility] Polio (IPV/OPV) 2001 Completed [facility] 00:00:00 [facility] HIB 4 Dose Schedule 2001 Completed [facility] 00:00:00 [facility] DTAP 2001 Completed [facility] 00:00:00 [facility] HIB 4 Dose Schedule 2001 Completed [facility] 00:00:00 [facility] Hep B, Adol or Pedi 2001 Completed [facility] Dosage 00:00:00 [facility] Polio (IPV/OPV) 2001 Completed [facility] 00:00:00 [facility] DTAP 2001 Completed [facility] 00:00:00 [facility] HIB 4 Dose Schedule 2001 Completed [facility] 00:00:00 [facility] Hep B, Adol or Pedi 2001 Completed [facility] Dosage 00:00:00 [facility] Polio (IPV/OPV) 2001 Completed [facility] 00:00:00 [facility] Hep B, Adol or Pedi 2001 Completed [facility] Dosage 00:00:00 [facility] DTAP 2001 Completed [facility] 00:00:00 [facility] HIB 4 Dose Schedule 2001 Completed [facility] 00:00:00 [facility] Hep B, Adol or Pedi 2001 Completed [facility] Dosage 00:00:00 [facility] Polio (IPV/OPV) 2001 Completed [facility] 00:00:00 [facility] DTAP 2001 Completed [facility] 00:00:00 [facility] HIB 4 Dose Schedule 2001 Completed [facility] 00:00:00 [facility] Hep B, Adol or Pedi 2001 Completed [facility] Dosage 00:00:00 [facility] Polio (IPV/OPV) 2001 Completed [facility] 00:00:00 [facility] Polio (IPV/OPV) 2001 Completed [facility] 00:00:00 [facility] DTAP 2001 Completed [facility] 00:00:00 [facility] HIB 4 Dose Schedule 2001 Completed [facility] 00:00:00 [facility] Hep B, Adol or Pedi 2001 Completed [facility] Dosage 00:00:00 [facility] Polio (IPV/OPV) 2001 Completed [facility] 00:00:00 [facility] DTAP 2001 Completed [facility] 00:00:00 [facility] HIB 4 Dose Schedule 2001 Completed [facility] 00:00:00 [facility] Hep B, Adol or Pedi 2001 Completed [facility] Dosage 00:00:00 [facility] Polio (IPV/OPV) 2001 Completed [facility] 00:00:00 [facility] DTAP 2001 Completed [facility] 00:00:00 [facility] HIB 4 Dose Schedule 2001 Completed [facility] 00:00:00 [facility] Hep B, Adol or Pedi 2001 Completed [facility] Dosage 00:00:00 [facility] Polio (IPV/OPV) 2001 Completed [facility] 00:00:00 [facility] DTAP 2001 Completed [facility] 00:00:00 [facility] HIB 4 Dose Schedule 2001 Completed [facility] 00:00:00 [facility] Hep B, Adol or Pedi 2001 Completed [facility] Dosage 00:00:00 [facility] Polio (IPV/OPV) 2001 Completed [facility] 00:00:00 [facility] DTAP 2001 Completed [facility] 00:00:00 [facility] DTAP 2001 Completed [facility] 00:00:00 [facility] HIB 4 Dose Schedule 2001 Completed [facility] 00:00:00 [facility] Hep B, Adol or Pedi 2001 Completed [facility] Dosage 00:00:00 [facility] Polio (IPV/OPV) 2001 Completed [facility] 00:00:00 [facility] DTAP 2001 Completed [facility] 00:00:00 [facility] HIB 4 Dose Schedule 2001 Completed [facility] 00:00:00 [facility] HIB 4 Dose Schedule 2001 Completed [facility] 00:00:00 [facility] Hep B, Adol or Pedi 2001 Completed [facility] Dosage 00:00:00 [facility] Polio (IPV/OPV) 2001 Completed [facility] 00:00:00 [facility] Hep B, Adol or Pedi 2001 Completed [facility] Dosage 00:00:00 [facility] Polio (IPV/OPV) 2001 Completed [facility] 00:00:00 [facility] DTAP 2001 Completed [facility] 00:00:00 [facility] HIB 4 Dose Schedule 2001 Completed [facility] 00:00:00 [facility] Hep B, Adol or Pedi 2001 Completed [facility] Dosage 00:00:00 [facility] Polio (IPV/OPV) 2001 Completed [facility] 00:00:00 [facility] DTAP 2001 Completed [facility] 00:00:00 [facility] HIB 4 Dose Schedule 2001 Completed [facility] 00:00:00 [facility] Hep B, Adol or Pedi 2001 Completed [facility] Dosage 00:00:00 [facility] Polio (IPV/OPV) 2001 Completed [facility] 00:00:00 [facility] DTAP 2001 Completed [facility] 00:00:00 [facility] HIB 4 Dose Schedule 2001 Completed [facility] 00:00:00 [facility] Hep B, Adol or Pedi 2001 Completed [facility] Dosage 00:00:00 [facility] Polio (IPV/OPV) 2001 Completed [facility] 00:00:00 [facility] DTAP 2001 Completed [facility] 00:00:00 [facility] HIB 4 Dose Schedule 2001 Completed [facility] 00:00:00 [facility] Hep B, Adol or Pedi 2001 Completed [facility] Dosage 00:00:00 [facility] Polio (IPV/OPV) 2001 Completed [facility] 00:00:00 [facility] DTAP 2001 Completed [facility] 00:00:00 [facility] HIB 4 Dose Schedule 2001 Completed [facility] 00:00:00 [facility] Hep B, Adol or Pedi 2001 Completed [facility] Dosage 00:00:00 [facility] Polio (IPV/OPV) 2001 Completed [facility] 00:00:00 [facility] DTAP 2001 Completed [facility] 00:00:00 [facility] HIB 4 Dose Schedule 2001 Completed [facility] 00:00:00 [facility] Hep B, Adol or Pedi 2001 Completed [facility] Dosage 00:00:00 [facility] Polio (IPV/OPV) 2001 Completed [facility] 00:00:00 [facility] DTAP 2001 Completed [facility] 00:00:00 [facility] HIB 4 Dose Schedule 2001 Completed [facility] 00:00:00 [facility] Hep B, Adol or Pedi 2001 Completed [facility] Dosage 00:00:00 [facility] Polio (IPV/OPV) 2001 Completed [facility] 00:00:00 [facility] DTAP 2001 Completed [facility] 00:00:00 [facility] HIB 4 Dose Schedule 2001 Completed [facility] 00:00:00 [facility] Hep B, Adol or Pedi 2001 Completed [facility] Dosage 00:00:00 [facility] Polio (IPV/OPV) 2001 Completed [facility] 00:00:00 [facility] DTAP 2001 Completed [facility] 00:00:00 [facility] HIB 4 Dose Schedule 2001 Completed [facility] 00:00:00 [facility] Hep B, Adol or Pedi 2001 Completed [facility] Dosage 00:00:00 [facility] Polio (IPV/OPV) 2001 Completed [facility] 00:00:00 [facility] DTAP 2001 Completed [facility] 00:00:00 [facility] HIB 4 Dose Schedule 2001 Completed [facility] 00:00:00 [facility] Hep B, Adol or Pedi 2001 Completed [facility] Dosage 00:00:00 [facility] Polio (IPV/OPV) 2001 Completed [facility] 00:00:00 [facility] DTAP 2001 Completed [facility] 00:00:00 [facility] HIB 4 Dose Schedule 2001 Completed [facility] 00:00:00 [facility] Hep B, Adol or Pedi 2001 Completed [facility] Dosage 00:00:00 [facility] Polio (IPV/OPV) 2001 Completed [facility] 00:00:00 [facility] DTAP 2001 Completed [facility] 00:00:00 [facility] HIB 4 Dose Schedule 2001 Completed [facility] 00:00:00 [facility] Hep B, Adol or Pedi 2001 Completed [facility] Dosage 00:00:00 [facility] Polio (IPV/OPV) 2001 Completed [facility] 00:00:00 [facility] DTAP 2001 Completed [facility] 00:00:00 [facility] HIB 4 Dose Schedule 2001 Completed [facility] 00:00:00 [facility] Hep B, Adol or Pedi 2001 Completed [facility] Dosage 00:00:00 [facility] Polio (IPV/OPV) 2001 Completed [facility] 00:00:00 [facility] DTAP 2001 Completed [facility] 00:00:00 [facility] HIB 4 Dose Schedule 2001 Completed [facility] 00:00:00 [facility] Hep B, Adol or Pedi 2001 Completed [facility] Dosage 00:00:00 [facility] Polio (IPV/OPV) 2001 Completed [facility] 00:00:00 [facility] DTAP 2001 Completed [facility] 00:00:00 [facility] HIB 4 Dose Schedule 2001 Completed [facility] 00:00:00 [facility] Hep B, Adol or Pedi 2001 Completed [facility] Dosage 00:00:00 [facility] Polio (IPV/OPV) 2001 Completed [facility] 00:00:00 [facility] DTAP 2001 Completed [facility] 00:00:00 [facility] HIB 4 Dose Schedule 2001 Completed [facility] 00:00:00 [facility] DTAP 2001 Completed [facility] 00:00:00 [facility] Hep B, Adol or Pedi 2001 Completed [facility] Dosage 00:00:00 [facility] Polio (IPV/OPV) 2001 Completed [facility] 00:00:00 [facility] DTAP 2001 Completed [facility] 00:00:00 [facility] HIB 4 Dose Schedule 2001 Completed [facility] 00:00:00 [facility] Hep B, Adol or Pedi 2001 Completed [facility] Dosage 00:00:00 [facility] Polio (IPV/OPV) 2001 Completed [facility] 00:00:00 [facility] HIB 4 Dose Schedule 2001 Completed [facility] 00:00:00 [facility] DTAP 2001 Completed [facility] 00:00:00 [facility] HIB 4 Dose Schedule 2001 Completed [facility] 00:00:00 [facility] Hep B, Adol or Pedi 2001 Completed [facility] Dosage 00:00:00 [facility] Polio (IPV/OPV) 2001 Completed [facility] 00:00:00 [facility] DTAP 2001 Completed [facility] 00:00:00 [facility] HIB 4 Dose Schedule 2001 Completed [facility] 00:00:00 [facility] Hep B, Adol or Pedi 2001 Completed [facility] Dosage 00:00:00 [facility] Hep B, Adol or Pedi 2001 Completed [facility] Dosage 00:00:00 [facility] Polio (IPV/OPV) 2001 Completed [facility] 00:00:00 [facility] DTAP 2001 Completed [facility] 00:00:00 [facility] HIB 4 Dose Schedule 2001 Completed [facility] 00:00:00 [facility] Hep B, Adol or Pedi 2001 Completed [facility] Dosage 00:00:00 [facility] Polio (IPV/OPV) 2001 Completed [facility] 00:00:00 [facility] DTAP 2001 Completed [facility] 00:00:00 [facility] Polio (IPV/OPV) 2001 Completed [facility] 00:00:00 [facility] HIB 4 Dose Schedule 2001 Completed [facility] 00:00:00 [facility] Hep B, Adol or Pedi 2001 Completed [facility] Dosage 00:00:00 [facility] Polio (IPV/OPV) 2001 Completed [facility] 00:00:00 [facility] DTAP 2001 Completed [facility] 00:00:00 [facility] HIB 4 Dose Schedule 2001 Completed [facility] 00:00:00 [facility] Hep B, Adol or Pedi 2001 Completed [facility] Dosage 00:00:00 [facility] Polio (IPV/OPV) 2001 Completed [facility] 00:00:00 [facility] DTAP 2001 Com[facility] [facility] H[facility] 4 Dose Schedule 2001 Completed [facility] 00:00:00 [facility] Hep B, Adol or Pedi 2001 Completed [facility] Dosage 00:00:00 [facility] Polio (IPV/OPV) 2001 Completed [facility] 00:00:00 [facility] DTAP 2001 Completed [facility] 00:00:00 [facility] HIB 4 Dose Schedule 2001 Completed [facility] 00:00:00 [facility] Hep B, Adol or Pedi 2001 Completed [facility] Dosage 00:00:00 [facility] Polio (IPV/OPV) 2001 Completed [facility] 00:00:00 [facility] DTAP 2001 Completed [facility] 00:00:00 [facility] HIB 4 Dose Schedule 2001 Completed [facility] 00:00:00 [facility] Hep B, Adol or Pedi 2001 Completed [facility] of Dosage 00:00:00 [facility] Polio (IPV/OPV) 2001 Completed [facility] 00:00:00 [facility] DTAP 2001 Completed [facility] 00:00:00 [facility] HIB 4 Dose Schedule 2001 Completed [facility] 00:00:00 [facility] Hep B, Adol or Pedi 2001 Completed [facility] Dosage 00:00:00 [facility] Polio (IPV/OPV) 2001 Completed [facility] 00:00:00 [facility] DTAP 2001 Completed [facility] 00:00:00 [facility] DTAP 2001 Completed [facility] 00:00:00 [facility] HIB 4 Dose Schedule 2001 Completed [facility] 00:00:00 [facility] Hep B, Adol or Pedi 2001 Completed [facility] Dosage 00:00:00 [facility] Polio (IPV/OPV) 2001 Completed [facility] 00:00:00 [facility] DTAP 2001 Completed [facility] 00:00:00 [facility] HIB 4 Dose Schedule 2001 Completed [facility] 00:00:00 [facility] HIB 4 Dose Schedule 2001 Completed [facility] 00:00:00 [facility] Hep B, Adol or Pedi 2001 Completed [facility] of Dosage 00:00:00 [facility] Polio (IPV/OPV) 2001 Completed [facility] 00:00:00 [facility] DTAP 2001 Completed [facility] 00:00:00 [facility] HIB 4 Dose Schedule 2001 Completed [facility] 00:00:00 [facility] Hep B, Adol or Pedi 2001 Completed [facility] Dosage 00:00:00 [facility] Polio (IPV/OPV) 2001 Completed [facility] 00:00:00 [facility] Hep B, Adol or Pedi 2001 Completed [facility] of Dosage 00:00:00 [facility] DTAP 2001 Completed [facility] 00:00:00 [facility] HIB 4 Dose Schedule 2001 Completed [facility] 00:00:00 [facility] Hep B, Adol or Pedi 2001 Completed [facility] of Dosage 00:00:00 [facility] Polio (IPV/OPV) 2001 Completed [facility] 00:00:00 [facility] DTAP 2001 Completed [facility] 00:00:00 [facility] HIB 4 Dose Schedule 2001 Completed [facility] 00:00:00 [facility] Hep B, Adol or Pedi 2001 Completed [facility] of Dosage 00:00:00 [facility] Polio (IPV/OPV) 2001 Completed [facility] 00:00:00 [facility] Polio (IPV/OPV) 2001 Completed [facility] 00:00:00 [facility] DTAP 2001 Completed [facility] 00:00:00 [facility] HIB 4 Dose Schedule 2001 Completed [facility] 00:00:00 [facility] Hep B, Adol or Pedi 2001 Completed [facility] Dosage 00:00:00 [facility] Polio (IPV/OPV) 2001 Completed [facility] 00:00:00 [facility] DTAP 2001 Completed [facility] 00:00:00 [facility] HIB 4 Dose Schedule 2001 Completed [facility] 00:00:00 [facility] Hep B, Adol or Pedi 2001 Completed [facility] Dosage 00:00:00 [facility] Polio (IPV/OPV) 2001 Completed [facility] 00:00:00 [facility] DTAP 2001 Completed [facility] 00:00:00 [facility] HIB 4 Dose Schedule 2001 Completed [facility] 00:00:00 [facility] Hep B, Adol or Pedi 2001 Completed [facility] Dosage 00:00:00 [facility] Polio (IPV/OPV) 2001 Completed [facility] 00:00:00 [facility] DTAP 2001 Completed [facility] 00:00:00 [facility] HIB 4 Dose Schedule 2001 Completed [facility] 00:00:00 [facility] Hep B, Adol or Pedi 2001 Completed [facility] of Dosage 00:00:00 [facility] Polio (IPV/OPV) 2001 Completed [facility] 00:00:00 [facility] DTAP 2001 Completed [facility] 00:00:00 [facility] DTAP 2001 Completed [facility] 00:00:00 [facility] HIB 4 Dose Schedule 2001 Completed [facility] 00:00:00 [facility] Hep B, Adol or Pedi 2001 Completed [facility] of Dosage 00:00:00 [facility] Polio (IPV/OPV) 2001 Completed [facility] 00:00:00 [facility] HIB 4 Dose Schedule 2001 Completed [facility] 00:00:00 [facility] DTAP 2001 Completed [facility] 00:00:00 [facility] HIB 4 Dose Schedule 2001 Completed [facility] 00:00:00 [facility] Hep B, Adol or Pedi 2001 Completed [facility] of Dosage 00:00:00 [facility] Polio (IPV/OPV) 2001 Completed [facility] 00:00:00 [facility] DTAP 2001 Completed [facility] 00:00:00 [facility] HIB 4 Dose Schedule 2001 Completed [facility] 00:00:00 [facility] Hep B, Adol or Pedi 2001 Completed [facility] of Dosage 00:00:00 [facility] Polio (IPV/OPV) 2001 Completed [facility] 00:00:00 [facility] Hep B, Adol or Pedi 2001 Completed [facility] of Dosage 00:00:00 [facility] DTAP 2001 Completed [facility] 00:00:00 [facility] HIB 4 Dose Schedule 2001 Completed [facility] 00:00:00 [facility] Hep B, Adol or Pedi 2001 Completed [facility] of Dosage 00:00:00 [facility] Polio (IPV/OPV) 2001 Completed [facility] 00:00:00 [facility] DTAP 2001 Completed [facility] 00:00:00 [facility] HIB 4 Dose Schedule 2001 Completed [facility] 00:00:00 [facility] Polio (IPV/OPV) 2001 Completed [facility] 00:00:00 [facility] Hep B, Adol or Pedi 2001 Completed [facility] of Dosage 00:00:00 [facility] Polio (IPV/OPV) 2001 Completed [facility] 00:00:00 [facility] DTAP 2001 Completed [facility] 00:00:00 [facility] HIB 4 Dose Schedule 2001 Completed [facility] 00:00:00 [facility] Hep B, Adol or Pedi 2001 Completed [facility] Dosage 00:00:00 [facility] Polio (IPV/OPV) 2001 Completed [facility] 00:00:00 [facility] DTAP 2001 Completed [facility] 00:00:00 [facility] HIB 4 Dose Schedule 2001 Completed [facility] 00:00:00 [facility] Hep B, Adol or Pedi 2001 Completed [facility] of Dosage 00:00:00 [facility] Polio (IPV/OPV) 2001 Completed [facility] 00:00:00 [facility] DTAP 2001 Completed [facility] 00:00:00 [facility] HIB 4 Dose Schedule 2001 Completed [facility] 00:00:00 [facility] Hep B, Adol or Pedi 2001 Completed [facility] Dosage 00:00:00 [facility] Polio (IPV/OPV) 2001 Completed [facility] 00:00:00 [facility] DTAP 2001 Completed [facility] 00:00:00 [facility] HIB 4 Dose Schedule 2001 Completed [facility] 00:00:00 [facility] Hep B, Adol or Pedi 2001 Completed [facility] Dosage 00:00:00 [facility] Polio (IPV/OPV) 2001 Completed [facility] 00:00:00 [facility] DTAP 2001 Completed [facility] 00:00:00 [facility] DTAP 2001 Completed [facility] 00:00:00 [facility] HIB 4 Dose Schedule 2001 Completed [facility] 00:00:00 [facility] Hep B, Adol or Pedi 2001 Completed [facility] Dosage 00:00:00 [facility] Polio (IPV/OPV) 2001 Completed [facility] 00:00:00 [facility] HIB 4 Dose Schedule 2001 Completed [facility] 00:00:00 [facility] DTAP 2001 Completed [facility] 00:00:00 [facility] HIB 4 Dose Schedule 2001 Completed [facility] 00:00:00 [facility] Hep B, Adol or Pedi 2001 Completed [facility] of Dosage 00:00:00 [facility] Polio (IPV/OPV) 2001 Completed [facility] 00:00:00 [facility] Hep B, Adol or Pedi 2001 Completed [facility] Dosage 00:00:00 [facility] Polio (IPV/OPV) 2001 Completed [facility] 00:00:00 [facility] DTAP 2001 Completed [facility] 00:00:00 [facility] HIB 4 Dose Schedule 2001 Completed [facility] 00:00:00 [facility] Hep B, Adol or Pedi 2001 Completed [facility] of Dosage 00:00:00 [facility] Polio (IPV/OPV) 2001 Completed [facility] 00:00:00 [facility] DTAP 2001 Completed [facility] 00:00:00 [facility] HIB 4 Dose Schedule 2001 Completed [facility] 00:00:00 [facility] Hep B, Adol or Pedi 2001 Completed [facility] Dosage 00:00:00 [facility] Polio (IPV/OPV) 2001 Completed [facility] 00:00:00 [facility] DTAP 2001 Completed [facility] 00:00:00 [facility] HIB 4 Dose Schedule 2001 Completed [facility] 00:00:00 [facility] Hep B, Adol or Pedi 2001 Completed [facility] of Dosage 00:00:00 [facility] Polio (IPV/OPV) 2001 Completed [facility] 00:00:00 [facility] DTAP 2001 Completed [facility] 00:00:00 [facility] HIB 4 Dose Schedule 2001 Completed [facility] 00:00:00 [facility] Hep B, Adol or Pedi 2001 Completed [facility] Dosage 00:00:00 [facility] Polio (IPV/OPV) 2001 Completed [facility] 00:00:00 [facility] DTAP 2001 Completed [facility] 00:00:00 [facility] HIB 4 Dose Schedule 2001 Completed [facility] 00:00:00 [facility] Hep B, Adol or Pedi 2001 Completed [facility] of Dosage 00:00:00 [facility] Polio (IPV/OPV) 2001 Completed [facility] 00:00:00 [facility] DTAP 2001 Completed [facility] 00:00:00 [facility] HIB 4 Dose Schedule 2001 Completed [facility] 00:00:00 [facility] Hep B, Adol or Pedi 2001 Completed [facility] Dosage 00:00:00 [facility] Polio (IPV/OPV) 2001 Completed [facility] 00:00:00 [facility] DTAP 2001 Completed [facility] 00:00:00 [facility] HIB 4 Dose Schedule 2001 Completed [facility] 00:00:00 [facility] Hep B, Adol or Pedi 2001 Completed [facility] Dosage 00:00:00 [facility] Polio (IPV/OPV) 2001 Completed [facility] 00:00:00 [facility] DTAP 2001 Completed [facility] 00:00:00 [facility] HIB 4 Dose Schedule 2001 Completed [facility] 00:00:00 [facility] Hep B, Adol or Pedi 2001 Completed [facility] of Dosage 00:00:00 [facility] Polio (IPV/OPV) 2001 Completed [facility] 00:00:00 [facility] DTAP 2001 Completed [facility] 00:00:00 [facility] HIB 4 Dose Schedule 2001 Completed [facility] 00:00:00 [facility] Hep B, Adol or Pedi 2001 Completed [facility] of Dosage 00:00:00 [facility] Polio (IPV/OPV) 2001 Completed [facility] 00:00:00 [facility] DTAP 2001 Completed [facility] 00:00:00 [facility] HIB 4 Dose Schedule 2001 Completed [facility] 00:00:00 [facility] Hep B, Adol or Pedi 2001 Completed [facility] of Dosage 00:00:00 [facility] Polio (IPV/OPV) 2001 Completed [facility] 00:00:00 [facility] DTAP 2001 Completed [facility] 00:00:00 [facility] HIB 4 Dose Schedule 2001 Completed [facility] 00:00:00 [facility] Hep B, Adol or Pedi 2001 Completed [facility] of Dosage 00:00:00 [facility] Polio (IPV/OPV) 2001 Completed [facility] 00:00:00 [facility] DTAP 2001 Completed [facility] 00:00:00 [facility] HIB 4 Dose Schedule 2001 Completed [facility] 00:00:00 [facility] Hep B, Adol or Pedi 2001 Completed [facility] of Dosage 00:00:00 [facility] Polio (IPV/OPV) 2001 Completed [facility] 00:00:00 [facility] DTAP 2001 Completed [facility] 00:00:00 [facility] HIB 4 Dose Schedule 2001 Completed [facility] 00:00:00 [facility] Hep B, Adol or Pedi 2001 Completed [facility] of Dosage 00:00:00 [facility] Polio (IPV/OPV) 2001 Completed [facility] 00:00:00 [facility] DTAP 2001 Completed [facility] 00:00:00 [facility] HIB 4 Dose Schedule 2001 Completed [facility] 00:00:00 [facility] Hep B, Adol or Pedi 2001 Completed [facility] of Dosage 00:00:00 [facility] Polio (IPV/OPV) 2001 Completed [facility] 00:00:00 [facility] DTAP 2001 Completed [facility] 00:00:00 [facility] HIB 4 Dose Schedule 2001 Completed [facility] 00:00:00 [facility] Hep B, Adol or Pedi 2001 Completed [facility] of Dosage 00:00:00 [facility] Polio (IPV/OPV) 2001 Completed [facility] 00:00:00 [facility] DTAP 2001 Completed [facility] 00:00:00 [facility] DTAP 2001 Completed [facility] 00:00:00 [facility] HIB 4 Dose Schedule 2001 Completed [facility] 00:00:00 [facility] Hep B, Adol or Pedi 2001 Completed [facility] of Dosage 00:00:00 [facility] Polio (IPV/OPV) 2001 Completed [facility] 00:00:00 [facility] DTAP 2001 Completed [facility] 00:00:00 [facility] HIB 4 Dose Schedule 2001 Completed [facility] 00:00:00 [facility] Hep B, Adol or Pedi 2001 Completed [facility] of Dosage 00:00:00 [facility] HIB 4 Dose Schedule 2001 Completed [facility] 00:00:00 [facility] Polio (IPV/OPV) 2001 Completed [facility] 00:00:00 [facility] DTAP 2001 Completed [facility] 00:00:00 [facility] HIB 4 Dose Schedule 2001 Completed [facility] 00:00:00 [facility] Hep B, Adol or Pedi 2001 Completed [facility] of Dosage 00:00:00 [facility] Polio (IPV/OPV) 2001 Completed [facility] 00:00:00 [facility] DTAP 2001 Completed [facility] 00:00:00 [facility] Hep B, Adol or Pedi 2001 Completed [facility] of Dosage 00:00:00 [facility] HIB 4 Dose Schedule 2001 Completed [facility] of 00:00:00 [facility] Hep B, Adol or Pedi 2001 Completed [facility] of Dosage 00:00:00 [facility] Polio (IPV/OPV) 2001 Completed [facility] 00:00:00 [facility] DTAP 2001 Completed [facility] 00:00:00 [facility] HIB 4 Dose Schedule 2001 Completed [facility] 00:00:00 [facility] Hep B, Adol or Pedi 2001 Completed [facility] of Dosage 00:00:00 [facility] Polio (IPV/OPV) 2001 Completed [facility] 00:00:00 [facility] Hep B, Adol or Pedi 2001 Completed [facility] of Dosage 00:00:00 [facility] Hep B, Adol or Pedi 2001 Completed [facility] of Dosage 00:00:00 [facility] Hep B, Adol or Pedi 2001 Completed [facility] of Dosage 00:00:00 [facility] Hep B, Adol or Pedi 2001 Completed [facility] of Dosage 00:00:00 [facility] Hep B, Adol or Pedi 2001 Completed [facility] of Dosage 00:00:00 [facility] Hep B, Adol or Pedi 2001 Completed [facility] of Dosage 00:00:00 [facility] Hep B, Adol or Pedi 2001 Completed [facility] of Dosage 00:00:00 [facility] Hep B, Adol or Pedi 2001 Completed [facility] of Dosage 00:00:00 [facility] Hep B, Adol or Pedi [...] 2001 Completed [facility] of Dosage 00:00:00 [facility] Hep B, Adol or Pedi [...] 2001 Completed [facility] Dosage 00:00:00 [facility] Hep B, Adol or Pedi 2001 Completed [facility] of Dosage 00:00:00 [facility] Hep B, Adol or Pedi 2001 Completed [facility] Dosage 00:00:00 [facility] Vital Signs Vital Name Observation Time Observation Value Comments Source Systolic blood 2020-08-20 14:45:00 119 mm[Hg] Univer [facility]ity of pressure [facility] Diastolic blood 2020-08-20 14:45:00 75 mm[Hg] [facility]ive [facility]ity of pressure [facility] Heart rate 2020-08-20 14:45:00 80 /min [facility] Body temperature 2020-08-20 14:45:[facility] 2020-08-20 14:45:00 177.8 cm [facility] Body weight 2020-08-20 14:45:[address] [facility] BMI 2020-08-20 14:45:00 41.63 kg/m2 [facility] Oxygen saturation in 2020-08-20 14:45:00 99 /min University Arterial blood by [facility] Pulse oximetry Branch height 2020-08-12 10:30:00 69 [in_i] [facility] weight 2020-08-12 10:30:00 287 [lb_av] [facility] bmi 2020-08-12 10:30:00 42.38 kg/m2 [facility] blood pressure 2020-08-12 10:30:00 118 mm[Hg] [facility] systolic [facility] blood pressure 2020-08-12 10:30:00 78 mm[Hg] [facility] - diastolic [facility] Systolic blood 2020-07-09 15:47:00 123 mm[Hg] Univer [facility]ity of [facility] Diastolic blood 2020-07-09 15:47:00 80 mm[Hg] Unive rsity of pressure [facility] Heart rate 2020-07-09 15:47:00 92 /min [facility] ty [facility] Body temperature 2020-07-09 15:47:[address] [facility] Respiratory rate 2020-07-09 15:47:00 18 /min Univ ersity of [facility] Body height 2020-07-09 15:47:00 175.3 cm [facility]i ty of [facility] Body weight 2020-07-09 15:47:00 127.914 kg [facility]i ty [facility] BMI 2020-07-09 15:47:00 41.64 kg/m2 [facility] Oxygen saturation in 2020-07-09 15:47:00 98 /min University of Arterial blood by [facility] Pulse oximetry Branch Systolic blood 2020-06-25 16:42:00 120 mm[Hg] Univer [facility]ity of pressure [facility] Diastolic blood 2020-06-25 16:42:00 77 mm[Hg] Unive [facility]ity of pressure [facility] Heart rate 2020-06-25 16:42:00 72 /min [facility] Body temperature 2020-06-25 16:42:00 37 Lilo [facility] ers[facility] of [facility] Respiratory rate 2020-06-25 16:42:00 18 /min Univ ersity of [facility] Body height 2020-06-25 16:42:00 177.8 cm [facility] Body weight 2020-06-25 16:42:00 127.914 kg [facility] BMI 2020-06-25 16:42:00 40.46 kg/m2 [facility] Oxygen saturation in 2020-06-25 16:42:00 100 /min University of Arterial blood by [facility] Pulse oximetry Branch Systolic blood 2020-06-17 12:15:00 138 mm[Hg] Univer [facility]ity of pressure [facility] Diastolic blood 2020-06-17 12:15:00 83 mm[Hg] Unive [facility]ity of pressure [facility] Heart rate 2020-06-17 12:15:00 64 /min [facility] Body temperature 2020-06-17 12:15:00 36.44 Lilo [facility] Respiratory rate 2020-06-17 12:15:00 18 /min Univ ers[facility] Body height 2020-06-17 12:15:00 177.8 cm [facility] Body weight 2020-06-17 12:15:00 127.007 kg [facility] BMI 2020-06-17 12:15:00 40.18 kg/m2 [facility] Oxygen saturation in 2020-06-17 12:15:00 99 /min University of Arterial blood by [facility] Pulse oximetry Branch height 2020-06-10 10:30:00 69 [in_i] [facility] weight 2020-06-10 10:30:00 287 [lb_av] [facility] temperature 2020-06-10 10:30:00 97.3 [degF] [facility] bmi 2020-06-10 10:30:00 42.38 kg/m2 [facility] blood pressure 2020-06-10 10:30:00 120 mm[Hg] [facility] - systolic [facility] blood pressure 2020-06-10 10:30:00 74 mm[Hg] [facility] - diastolic [facility] Systolic blood 2020-05-14 17:54:00 115 mm[Hg] Univer [facility]ity of pressure [facility] Diastolic blood 2020-05-14 17:54:00 67 mm[Hg] [facility]ive [facility]ity of [facility] Heart rate 2020-05-14 17:54:00 77 /min Universi [facility] Body temperature 2020-05-14 17:54:00 36.67 Lilo [facility] 2020-05-14 17:54:00 18 /min [facility] 2020-05-14 17:54[facility] 2020-05-14 17:54:00 128.323 [facility] 2020-05-14 17:54:00 40.59 kg/m2 [facility] Oxygen saturation in 2020-05-14 17:54:00 100 /min University of Arterial blood by [facility] Pulse oximetry Branch Systolic blood 2020-05-14 17:54:00 115 mm[Hg] Univer sity of pressure [facility] Diastolic blood 2020-05-14 17:54:00 67 mm[Hg] Unive rsity of [facility] Heart rate 2020-05-14 17:54:00 77 /min [facility] ty [facility] Body temperature 2020-05-14 17:54:00 36.67 Lilo [facility] ersity of [facility] Respiratory rate 2020-05-14 17:54:00 18 /min [facility] ersity [facility] Body height 2020-05-14 17:54:00 177.8 cm Universi ty of [facility] Body weight 2020-05-14 17:54:[address] [facility] BMI 2020-05-14 17:54:00 40.59 kg/m2 Universi ty [facility] Oxygen saturation in 2020-05-14 17:54:00 100 /min [facility] Arterial blood by [facility] Pulse oximetry Branch height 2020-04-21 14:00:00 69 [in_i] [facility] weight 2020-04-21 14:00:00 279 [lb_av] [facility] temperature 2020-04-21 14:00:00 97.7 [degF] [facility] bmi 2020-04-21 14:00:00 41.2 kg/m2 [facility] blood pressure 2020-04-21 14:00:00 122 mm[Hg] [facility] systolic [facility] blood pressure 2020-04-21 14:00:00 80 mm[Hg] [facility] - diastolic [facility] blood pressure 2020-03-20 11:15:00 89 mm[Hg] [facility] - diastolic [facility] height 2020-03-20 11:15:00 69 [in_i] [facility] weight 2020-03-20 11:15:00 279 [lb_av] [facility] bmi 2020-03-20 11:15:00 41.2 kg/m2 [facility] blood pressure 2020-03-20 11:15:00 147 mm[Hg] [facility] - systolic [facility] height 2020-03-11 15:30:00 69 [in_i] Common [facility] weight 2020-03-11 15:30:00 279 [lb_av] [facility] - [facility] temperature 2020-03-11 15:30:00 97.1 [degF] [facility] - [facility] bmi 2020-03-11 15:30:00 41.20 kg/m2 [facility] - [facility] blood pressure 2020-03-11 15:30:00 133 mm[Hg] [facility] - systolic [facility] blood pressure 2020-03-11 15:30:00 84 mm[Hg] [facility] - diastolic [facility] height 2020-02-28 10:00:00 69 [in_i] [facility] - [facility] weight 2020-02-28 10:00:00 179 [lb_av] [facility] - [facility] temperature 2020-02-28 10:00:00 97.3 [degF] [facility] - [facility] bmi 2020-02-28 10:00:00 26.43 kg/m2 [facility] - [facility] blood pressure 2020-02-28 10:00:00 124 mm[Hg] [facility] - systolic [facility] blood pressure 2020-02-28 10:00:00 84 mm[Hg] [facility] - diastolic [facility] height 2020-02-12 10:30:00 69 [in_i] [facility] - [facility] weight 2020-02-12 10:30:00 179 [lb_av] [facility] - [facility] temperature 2020-02-12 10:30:00 97.1 [degF] [facility] - [facility] bmi 2020-02-12 10:30:00 26.43 kg/m2 [facility] - [facility] blood pressure 2020-02-12 10:30:00 124 mm[Hg] [facility] - systolic [facility] blood pressure 2020-02-12 10:30:00 82 mm[Hg] [facility] - diastolic [facility] height 2020-01-29 11:00:00 69 [in_i] [facility] - [facility] weight 2020-01-29 11:00:00 179 [lb_av] [facility] bmi 2020-01-29 11:00:00 26.43 kg/m2 [facility] - [facility] blood pressure 2020-01-29 11:00:00 118 mm[Hg] [facility] - systolic [facility] blood pressure 2020-01-29 11:00:00 82 mm[Hg] [facility] - diastolic [facility] height 2020-01-22 13:00:00 69 [in_i] [facility] weight 2020-01-22 13:00:00 179 [lb_av] [facility] bmi 2020-01-22 13:00:00 26.43 kg/m2 [facility] blood pressure 2020-01-22 13:00:00 120 mm[Hg] [facility] - systolic [facility] blood pressure 2020-01-22 13:00:00 80 mm[Hg] [facility] - diastolic [facility] Systolic blood 2020-01-20 19:46:00 140 mm[Hg] Univer sity of pressure [facility] Diastolic blood 2020-01-20 19:46:00 79 mm[Hg] Unive rsity of pressure [facility] Heart rate 2020-01-20 19:46:00 99 /min Universi ty [facility] Body temperature 2020-01-20 19:46:00 37.44 Lilo Univ ersity of [facility] Respiratory rate 2020-01-20 19:46:00 18 /min Univ ersity of [facility] Body weight 2020-01-20 19:46:[address] [facility] Oxygen saturation in 2020-01-20 19:46:00 97 /min University Arterial blood by [facility] Pulse oximetry Branch Systolic blood 2020-01-02 14:09:00 120 mm[Hg] Univer sity of pressure [facility] Diastolic blood 2020-01-02 14:09:00 83 mm[Hg] Unive rsity of pressure [facility] Heart rate 2020-01-02 14:09:00 79 /min Universi ty [facility] Body temperature 2020-01-02 14:09:00 36.67 Lilo [facility] ersity of [facility] Respiratory rate 2020-01-02 14:09:00 18 /min Univ ersity of [facility] Body height 2020-01-02 14:09:00 175.3 cm [facility]i ty [facility] Body weight 2020-01-02 14:09:00 126.554 kg Universi ty of [facility] BMI 2020-01-02 14:09:00 41.20 kg/m2 Universi ty of [facility] Oxygen saturation in 2020-01-02 14:09:00 100 /min [facility] Arterial blood by [facility] Pulse oximetry Branch Systolic blood 2019-11-23 15:43:00 132 mm[Hg] Univer sity of pressure [facility] Diastolic blood 2019-11-23 15:43:00 80 mm[Hg] Unive rsity of [facility] Heart rate 2019-11-23 15:43:00 87 /min Universi ty of [facility] Body temperature 2019-11-23 15:43:00 37.22 Lilo [facility] 2019-11-23 15:43:00 20 /min [facility] ersity of [facility] Body height 2019-11-23 15:43:00 172.5 cm Universi ty of [facility] Body weight 2019-11-23 15:43:00 126.724 kg Universi ty of [facility] BMI 2019-11-23 15:43:00 42.59 kg/m2 Universi ty of [facility] Body height 2019-08-17 16:00:00 177.8 cm Universi ty [facility] Body weight 2019-08-17 16:00:00 113.399 kg Universi ty [facility] BMI 2019-08-17 16:00:00 35.87 kg/m2 [facility] Procedures Procedure Date / Time Performing Clinician Source Performed POCT TEST 2020-06-17 11:30:00 Maria R He [facility] ASSIGNMENT OF BENEFITS 2020-06-17 10:54:43 Doctor Unassigned, No [facility] Name Medical Branch DISCLOSURE AND CONSENT, 2020-05-14 06:01:00 Doctor Unassigned, N o University [facility] MEDICAL AND SURGICAL Name Medical Bra nc PROCEDURES XR KNEE 3 VW RIGHT 2020-01-20 20:20:03 Leyda Juares [facility] CONSENT/REFUSAL FOR 2020-01-20 19:36:17 Doctor Unassigned, No [facility] Name [facility] DISCLOSURE AND CONSENT, 2020-01-02 05:01:00 Doctor Unassigned, N o [facility] MEDICAL AND SURGICAL Name Medical Bra [facility] PROCEDURES MENINGOCOCCAL B VACCINE, 2019-11-23 15:55:20 Izzy Villanueva [facility] OMV, 2 DOSE, IM [facility] NOTICE OF PRIVACY 2019-11-23 15:23:48 Doctor Unassigned, No Univ [facility] PRACTICES Name [facility] Encounters Start End Encounter Admission Attending Care Care Encounter Source Date/Time Date/Time Type Type Clinicians Facility Department ID 2021-05-13 Outpatient [facility] [id number] Common 11:52:27 [id number] [facility] 2021-02-15 Outpatient ELVIE FAN [facility] [id number] Univers 01:09:16 ity of [facility] 2021-02-13 Emergency [facility] [id number] Univers 20:55:[address] [facility] 2020-08-20 2020-08-20 Office Elvie Fan [facility] 1.2.840.114 [id number] Univers 09:39:34 10:17:52 Visit E SPECIALTY [id number] ity of CARE [id number] [facility] AT [phone] Ok gumaro [address] [place] 2020-08-20 2020-08-20 Outpatient ELVIE DOOLEY [facility] [id number] Univers 09:45:00 09:45:[address] [facility] 2020-08-12 2020-08-12 OFFICE [facility] [id number] Co mmon 00:00:00 00:00:00 VISIT EST Spir it PT LEVEL 3 - [facility] 2020-07-23 2020-07-23 Outpatient ELVIE DOOLEY [facility] [id number] Univers 10:45:00 10:45:[address] [facility] 2020-07-16 2020-07-16 Outpatient R MITA ELVIE [facility] [id number] Univers 09:45:00 09:45:00 ity of [facility] 2020-07-16 2020-07-16 Telemedici Elvie Fan [facility] [id number] Univers 07:55:20 08:10:20 ne Visit E SPECIALTY 350.1.13.10 [id number] [phone] Ok gumaro [place] [address] [place] [address] 2020-07-09 2020-07-09 Office Mita [facility] 1.2.840.114 [id number] Univers 10:42:26 11:51:21 Visit E SPECIALTY 350.1.13.10 ity of CARE [id number] [facility] AT [phone] Ok gumaro ED[place] [address] [place] [address] 2020-07-09 2020-07-09 Outpatient R ELVIE FAN [facility] [id number] Univers 10:45:00 10:45:00 ity of [facility] 2020-06-25 2020-06-25 Office Mita [facility] 1.2.840.114 [id number] Univers 10:31:50 11:20:56 Visit E SPECIALTY 350.1.13.10 ity of CARE 4.2.7.2.686 [facility] AT [phone] Ok gumaro ED[place] [address] [place] [address] 2020-06-25 2020-06-25 Outpatient R ELVIE FAN [facility] [id number] Univers 10:45:00 10:45:00 ity of [facility] 2020-06-20 2020-06-20 Outpatient R FARHEEN [facility] [id number] Univers 13:00:00 13:00:00 DANIS aviles [facility] 2020-06-17 2020-06-17 [facility] 1.2.840.114 [id number] Univers 04:54:00 12:53:00 Encounter E Health 350.1.13.10 ity [place].2.686 [place] [facility] [phone] [address] ([facility]) 2020-06-17 2020-06-17 Orders Doctor ADRI 1.2.840.114 [id number] Univers 00:00:00 00:00:00 Only Unassigned, MELBA 350.1.13.10 ity of [facility] 4.2.7.2.686 [place] as [id number] [facility] [address] [place] 2020-06-17 2020-06-17 Telephone Elvie Fan [facility] 1.2.840.114 [id number] Univers 00:00:00 00:00:00 E SPECIALTY 350.1.13.10 it[place].2.7.2.[place] [phone] Ok gumaro [facility] 2020-06-16 2020-06-16 Nurse ADRI Manrique 1.2.840.114 [id number] Univers 00:00:00 00:00:00 Triage Randi MELBA 350.1.13.10 it y of HOSPITAL 4.2.7.2.686 [place] as [phone] [facility] [address] [place] 2020-06-13 2020-06-13 Laboratory Only, Adc Test [facility] 1.2.840. 114 [id number] Univers 09:42:52 09:57:52 Only Dhiraj June 350.1.13.10 ity of [place] 4.2.7.2.686 [facility] [id number] [facility] [address] [place] 2020-06-13 2020-06-13 Outpatient R SHAYLEE [facility] [id number] Univers 09:45:00 09:45:[address] [facility] 2020-06-11 2020-06-11 Outpatient R ELVIE FAN [facility] [id number] Univers 09:15:00 09:15:[address] [facility] 2020-06-11 2020-06-11 Telemedici Elvie Fan [facility] 1.2.840.114 [id number] Univers 07:53:33 08:08:33 ne Visit E SPECIALTY 350.1.13.10 it[place]2.[place].2.[place] [id number] Ok gumaro [place] [address] [place] [address] 2020-06-10 2020-06-10 OFFICE STLMLC STLC [id number] Co mmon 00:00:00 00:00:00 VISIT EST Spir it PT LEVEL 3 - [facility] 2020-05-14 2020-05-14 Office Elvie Fan [facility] 1.2.840.114 [id number] 11:37:54 11:37:54 Visit E SPECIALTY 350.1.13.10 CARE 4.2.7.2.686 CENTER AT [id number] GRACE [address] [place] [address] 2020-05-14 2020-05-14 Office Elvie Fan [facility] 1.2.840.114 [id number] Univers 11:37:54 11:37:54 Visit E SPECIALTY 350.1.13.10 ity of [place]2.[place].2.[place] [phone] Ok gumaro [address] 2020-05-14 2020-05-14 Outpatient R ELVIE FAN [facility] [id number] Univers 11:30:00 11:30:00 ity of [facility] 2020-05-14 2020-05-14 Orders Doctor ADRI 1.2.840.114 [id number] 00:00:00 00:00:00 Only Unassigned, MELBA 350.1.13.10 [facility] 4.2.7.2.686 [id number] 2020-05-14 2020-05-14 Orders Doctor ADRI 1.2.840.114 [id number] Univers 00:00:00 00:00:00 Only Unassigned, MELBA 350.1.13.10 ity of [facility] 4.2.7.2.686 [place] as [phone] [address] 2020-04-21 2020-04-21 NON-BILLAB STLMLC STLC [id number] Common 00:00:00 00:00:00 LE VISIT Spiri t [facility] 2020-04-02 2020-04-02 Prep For Elvie Fan [facility] 1.2.840.114 [id number] Univers 00:00:00 00:00:00 Surgery E SPECIALTY 350.1.13.10 [id number] [phone] Ok gumaro [place] [facility] 2020-03-26 2020-03-26 Outpatient R ELVIE FAN [facility] [id number] Univers 09:00:00 09:00:00 ity of [facility] 2020-03-26 2020-03-26 Telemedici Elvie Fan [facility] 1.2.840.114 [id number] Univers 08:01:41 08:16:41 ne Visit E SPECIALTY 350.1.13.10 ity of CARE 4.2.7.2.686 [facility] AT [phone] Ok gumaro [place] [address] [facility] 2020-03-20 2020-03-20 NON-BILLAB STLMLC STLMLC [id number] Common 00:00:00 00:00:00 [facility] 2020-03-11 2020-03-11 NON-BILLAB STLMLC STLMLC [id number] Common 00:00:00 00:00:00 LE VISIT Spiri t - [facility] 2020-02-28 2020-02-28 OFFICE STLMLC STLMLC [id number] Co mmon 00:00:00 00:00:00 VISIT EST Spir it PT LEVEL 3 - [facility] 2020-02-18 2020-02-18 (TEL) STLMLC STLMLC [id number] Co mmon 00:00:00 00:00:00 Spirit - [facility] 2020-02-12 2020-02-12 OFFICE STLMLC STLMLC [id number] Co mmon 00:00:00 00:00:00 VISIT Spirit ESTAB PT - CHI LEVEL 4 [facility] 2020-01-30 2020-01-30 Outpatient R ELVIE FAN [facility] [id number] Univers 09:45:00 09:45:00 ity of [facility] 2020-01-30 2020-01-30 Telephone ADRI Davis [id number] Univers 00:00:00 00:00:00 Jocelin REILLY 350.1.13.10 ity of [facility] 4.2.7.2.686 Germain [id number] [address] 2020-01-29 2020-01-29 OFFICE STLMLC STLMLC [id number] Co mmon 00:00:00 00:00:00 VISIT Spirit ESTAB PT - CHI LEVEL 4 [facility] 2020-01-25 2020-01-25 Outpatient R ELVIE FAN [facility] [id number] Univers 14:40:00 14:40:00 ity of [facility] 2020-01-23 2020-01-23 Telemedici Elvie Fan [facility] [id number] Univers 07:42:59 20:30:59 ne Visit E Y HEALTH 350.1.13.10 ity of CLINICS 4.2.7.2.686 [facility] [phone] [facility] [address] [place] 2020-01-23 2020-01-23 Outpatient R ELVIE AFN [facility] [id number] Univers 09:15:00 09:15:00 ity of [facility] 2020-01-23 2020-01-23 (TEL) STLMLC STLMLC [id number] Co mmon 00:00:00 00:00:00 Spirit - [facility] 2020-01-22 2020-01-22 OFFICE STLMLC STLMLC [id number] Co mmon 00:00:00 00:00:00 VISIT TETE Yang it PT LEVEL 4 - [facility] 2020-01-20 2020-01-20 Emergency [facility] [id number] Univers 14:48:00 16:37:00 Leyda Rodriges 350.1.13.10 ity of [place] 4.2.7.2.686 [facility] [id number] [facility] [address] [place] 2020 2020 Telephone Mita Elvie [facility] 1.2.840.114 [id number] Univers 00:00:00 00:00:00 E SPECIALTY 350.1.13.10 ity of [facility] 4.2.7.2.686 [facility] AT [phone] Ok gumaro [address] 2020-01-16 2020-01-16 Telephone [facility] 1.2.840.114 [id number] Univers 00:00:00 00:00:00 Izzy Saldivar [employer] 350.1.13.10 it y of [facility] 4.2.7.2.686 Germain as MATERNAL [id number] Med ical & CHILD [address] [place] [address] 2020-01-02 2020-01-02 Office Elvie Fan [facility] 1.2.840.114 [id number] Univers 09:01:49 17:14:00 Visit E SPECIALTY 350.1.13.10 ity of C[place].2.7.2.[place] [id number] Ok gumaro EDWARDS [address] [place] [address] 2020-01-02 2020-01-02 Outpatient R ELVIE FAN [facility] [id number] Univers 09:15:00 09:15:[address] [facility] 2020-01-02 2020-01-02 Orders Doctor [place] 1.2.840.114 [id number] Univers 00:00:00 00:00:00 Only Unassigned, MELBA 350.1.13.10 ity of [place] [facility] 4.2.7.2.686 Germain as [phone] [address] 2019-12-05 2019-12-05 Outpatient R ELVIE FAN [facility] [id number] Univers 10:00:00 10:00:00 ity of [facility] 2019-11-23 2019-11-23 Outpatient R ELVIE FAN [facility] [id number] Univers 13:00:00 13:00:00 ity of [facility] 2019-11-23 2019-11-23 [facility] [id number] Univers 11:20:22 11:35:22 Encounter Izzy Saldivar [employer] 350.1.13.10 ity of [facility] 4.2.7.2.686 [place] as MATERNAL [id number] [facility] ical & CHILD [address] [place] [address] 2019-11-23 2019-11-23 Corina Villanueva [facility] [id number] Univers 10:31:41 11:21:56 Visit Izzy Saldivar [employer] 350.1.13.10 it y of [facility] 4.2.7.2.686 [place] as MATERNAL [id number] Med ical & CHILD [address] [place] [address] 2019-11-23 2019-11-23 Outpatient Rebeca VILLANUEVA [facility] [id number] Univers 10:45:00 10:45:[address] [facility] 2019-11-23 2019-11-23 Orders Doctor ADRI 1.2.840.114 [id number] Univers 00:00:00 00:00:00 Only Unassigned, MELBA 350.1.13.10 ity of [place] [facility] 4.2.7.2.686 Germain as [phone] [address] 2019-08-17 2019-08-17 TelemedicElvie Wright [facility] 1.2.840.114 [id number] Univers 08:10:51 16:47:26 ne Visit E SPECIALTY 350.1.13.10 ity of [facility] 4.2.7.2.686 [place] AT [id number] Ok dical [address] 2019-08-17 2019-08-17 Outpatient ELVIE DOOLEY [facility] [id number] Univers 13:15:00 [facility]-08-[facility] 2019-08-15 Outpatient ELVIE DOOLEY [facility] [id number] Univers 10:00:00 10:00:[address] [facility] 2019-07-24 2019-07-24 Outpatient Rebeca BAE [facility] [id number] Univers 09:00:00 09:00:[address] [facility] 2019-07-20 2019-07-20 Lilly Herbert [facility] 1.2.840.114 [id number] Univers 09:10:58 09:25:58 ne Visit Adalberto [employer] 350.1.13.10 i ty of REGIONAL 4.2.7.2.686 [place] as MATERNAL [phone] Med ical & CHILD 107 [facility] 2019-07-20 2019-07-20 Outpatient Rebeca HERBERT [facility] [id number] Univers 09:00:00 09:00:[address] [facility] 2019-07-20 2019-07-20 Maryann Bae [facility] [id number] Univers 00:00:00 00:00:00 Samia A SPECIALTY 350.1.13.10 ity of C[place] 4.2.7.2.[place] [id number] Ok gumaro EDW[facility] 2019-07-17 2019-07-17 Telephone Alison Torres [facility] 1.2.840.114 [id number] Univers 00:00:00 00:00:00 [employer] 350.1.13.10 it y of REGIONAL 4.2.7.2.686 [place] as MATERNAL [id number] Med ical & CHILD 107 [facility] Results Test Description Test Time Test Comments Results Result Comments Source POCT Test 2020-06-17 11:33:00 Test Item Value Reference Range Interpretation Comme nts POCT PREG (test code = 1605) Negative On board controls acceptable with C Line (test code = 3574) Yes POCT PREG LOT # (test code = 3575) POCT PREG TEST DATE (test code = 3576) Lab Interpretation (test code = 20167-5) [facility] Knee Right Wo Cont
[2022-06-21] MEDS ORDERED: dexAMETHasone 10 MG/ML VIAL ONE (08:45)
--- NOTE | 2022-06-21 09:51 | ER ---
Nurse's Notes [facility] Name: Julián Stokes Age: 22 yrs Sex: Female : 2000 Arrival Date: 06/21/2022 Time: 07:57 Bed 10 Private MD: Diagnosis: Acute pharyngitis, unspecified Presentation: 06/21 08:40 Chief complaint: Patient states: sore throat and chills that began 4 days ago. aa5 08:40 Coronavirus screen: sore throat. Ebola Screen: [facility] denies [facility] to an [facility] in the 21 days before illness onset. Initial Sepsis Screen: Does the patient meet any 2 criteria? HR > 90 bpm. Does the patient have a suspected source of infection? No. Patient's initial sepsis screen is negative. Risk Assessment: Do you want to hurt yourself or someone else? Patient reports no desire to harm self or others. Onset of symptoms was June 2022. 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 - Social history:: Smoking status: Reported history of juuling and/or vaping. Screenin:56 [facility] ED Fall Risk Assessment (Adult) History of falling in the last 3 months, iw including since admission No falls in past 3 months (0 pts). Abuse screen: Denies threats or abuse. Denies injuries from another. Nutritional screening: No deficits noted. Tuberculosis screening: No symptoms or risk factors identified. Assessment: 09:55 General: Appears in no apparent distress. Behavior is calm, cooperative. Pain: iw Complains of pain in throat. Cardiovascular: Patient's skin is warm and dry. Respiratory: Airway is patent Respiratory effort is even, unlabored, Breath sounds are clear. EENT: Throat is reddened. Vital Signs: 08:40 BP 138 / 95; Pulse 109; Resp 18 S; Temp 99.5(TE); Pulse Ox 98% on R/A; Weight 127.01 kg aa5 (R); Height 5 ft. 11 in. (180.34 cm) (R); 08:40 Body Mass Index 39.05 (127.01 kg, 180.34 cm) aa5 ED Course: 07:57 Patient arrived in ED. rg4 08:22 Jay Bond PA is PHCP. leandro 08:22 Scott Ross MD is Attending Physician. [facility] 08:40 Arm band placed on. aa5 08:44 Triage completed. aa5 09:55 Rosalinda Snyder, RN is Primary Nurse. iw 09:56 Patient has correct armband on for positive identification. iw 09:56 No provider procedures requiring assistance completed. Patient did not have IV access iw during this emergency room visit. Administered Medications: 08:48 Drug: Decadron (dexamethasone) 10 mg Route: IM; Site: right gluteus; aa5 Medication: 09:56 VIS not applicable for this client. iw Outcome: 09:51 Discharge ordered by . [facility] 09:56 Discharged to home ambulatory. iw 09:56 Condition: good 09:56 Discharge instructions given to patient, Instructed on discharge instructions, follow up and referral plans. medication usage, Demonstrated understanding of instructions, follow-up care, medications, Prescriptions given X 1. 09:56 Patient left the ED. iw Signatures: Jay Bond PA PA jmm Williams, Irene, RN Clover Rueda RN RN Ban Fritz rg4
--- NOTE | 2022-06-21 09:51 | EDPHYS ---
Physician Documentation [facility] Name: Julián Stokes Age: 22 yrs Sex: Female : 2000 Arrival Date: 06/21/2022 Time: 07:57 Bed 10 Private MD: ED Physician Scott Ross HPI: 06/21 08:32 This 22 yrs old Black Female presents to ER via Ambulatory with complaints of Sore jmm Throat, Vomiting, Chills. 08:32 Onset: The symptoms/episode began/occurred gradually, 4 day(s) ago. Modifying factors: jmm The symptoms are alleviated by nothing, the symptoms are aggravated by nothing. Is a 22-year-old female with no [place] conditions presents emerged part with complaints of sore throat, congestion beginning proximately 4 days ago along with nausea migraine headaches.. 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 - Social history:: Smoking status: Reported history of juuling and/or vaping. ROS: 08:32 Constitutional: Positive for body aches, chills, fatigue. jmm 08:32 ENT: Positive for sinus congestion, sore throat. 08:32 Respiratory: Positive for 08:32 All other systems are negative. Exam: 08:32 Head/Face: atraumatic. Eyes: EOMI, no conjunctival erythema appreciated jmm 08:32 Neck: Trachea midline, Supple Chest/axilla: Normal chest wall appearance and motion. Cardiovascular: Regular rate and rhythm. No edema appreciated Respiratory: Normal respirations, no respiratory distress appreciated Abdomen/GI: Non distended Back: Normal ROM Skin: General appearance color normal MS/ Extremity: Moves all extremities, no obvious deformities appreciated, no edema noted to the lower extremities Neuro: Awake and alert Psych: Behavior is normal, Mood is normal, Patient is cooperative and pleasant 08:32 Constitutional: The patient appears in no acute distress, alert, awake. 08:32 ENT: Posterior pharynx: Airway: normal, Uvula: midline, erythema, that is moderate, exudate, that is moderate, peritonsillar mass, is not appreciated. Vital Signs: 08:40 BP 138 / 95; Pulse 109; Resp 18 S; Temp 99.5(TE); Pulse Ox 98% on R/A; Weight 127.01 kg aa5 (R); Height 5 ft. 11 in. (180.34 cm) (R); 08:40 Body Mass Index 39.05 (127.01 kg, 180.34 cm) aa5 MDM: 08:32 Patient medically screened. [facility] 09:50 Differential diagnosis: Acute pharyngitis, strep pharyngitis, viral syndrome. Data jmm reviewed: vital signs, nurses notes. I considered the following discharge prescriptions or medication management in the emergency department Medications were administered in the Emergency Department. See MAR. Counseling: I had a detailed discussion with the patient and/or guardian regarding: the historical points, exam findings, and any diagnostic results supporting the discharge/admit diagnosis, lab results, the need for outpatient follow up, to return to the emergency department if symptoms worsen or persist or if there are any questions or concerns that arise at home. ED course: Patient is alert nontoxic in appearance in the ED. I do not currently suspect Get's or peritonsillar abscess. Patient will be put on oral antibiotics and otherwise advised follow with PCP otherwise given strict return precautions. Patient understood and agrees to plan of care.. 06/21 08:35 Order name: Strep [facility] 06/21 09:38 Order name: Group A Streptococcus Rapid Sc; Complete Time: 09:39 EDMS Administered Medications: 08:48 Drug: Decadron (dexamethasone) 10 mg Route: IM; Site: right gluteus; aa5 Disposition Summary: 06/21/22 09:51 Discharge Ordered Location: Home [facility] Condition: Stable [facility] Diagnosis - Acute pharyngitis, unspecified [facility] Followup: [facility] - With: Private Physician - When: 2 - 3 days - Reason: Recheck today's complaints, Continuance of care, Re-evaluation by your physician Discharge Instructions: - Discharge Summary Sheet [facility] - Pharyngitis [facility] Forms: - Work release form jmm - Medication Reconciliation Form [facility] - Thank You Letter [facility] - Antibiotic Education jmm - Prescription Opioid Use [facility] Prescriptions: - Amoxicillin 875 mg Oral Tablet - take 1 tablet by ORAL route every 12 hours for 10 days; 20 tablet; Refills: 0, jmm Product Selection Permitted Signatures: Dispatcher [employer] Jay Milian PA PA jmm Calderon, Audri, RN RN aa5
[2022-06-21 10:06] VITALS: BP 138/95; TEMP 99.5; O2SAT 98
== END 2022-06-21 09:56 | disposition home or self-care (01) ==
LOC: ER 07:52
DX: J02.9 Acute pharyngitis, unspecified (principal)
CPT/HCPCS: 87070; 87081; 96372; 99283; J1100

== ENCOUNTER 2022-07-07 21:16 | Emergency (ER) | payer OTHER ==
--- OUTSIDE RECORDS SUMMARY | 2022-07-07 21:31 | XMS REPORT | Continuity of Care Document ---
:2001 Author Organization [facility] t Address [address] [facility] [address] [place] [address] Care Team Providers Name Role Phone ELVIE FAN Attending Clinician Unavailable Elvie Fan MD Attending Clinician DANIS ZHONG Attending Clinician Unavailable Doctor Unassigned, [place] Attending Clinician Unavailable Randi Manrique RN Attending [...] Type Policy Number Effective Date Expiration Date [facility] [id number] 2016 HEALTH CHOICE 00:00:00 MEDICAID [facility] [id number] [facility] - [facility] [id number] [facility] - [facility] [id number] [facility] - [facility] [id number] [facility] - [facility] [id number] [facility] - [facility] [id number] [facility] - [facility] [id number] [facility] - [facility] [id number] [facility] - [facility] [id number] [facility] - [facility] [id number] [facility] - [facility] [id number] [facility] - [facility] Problems Condition Condition Condition Status Onset [...] ally from Medical request Branch for surgery [id number] 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 [...] Active Univers ALLERGIE Class ity of S [facility] Social History Social Habit Start Date Stop Date Quantity Comments Source History of [facility] - Tobacco Use [facility] Sex Assigned At [facility] Exposure to Not sure University of SARS-CoV-2 [facility] (event) [place] Tobacco use and 2020-08-20 2020-08-20 Never used Universit y of exposure 00:00:00 00:00:00 [facility] Alcohol intake 2020-08-20 2020-08-20 Current University of 00:00:00 00:00:00 non-drinker of [facility] alcohol [place] (finding) Tobacco Comment 2016-06-09 2016-06-09 step father Universi ty of 00:00:00 00:00:[address] [facility] Smoking Status Start Date Stop Date Source Never Smoker [facility] Medications Ordered Filled Start Stop Current Ordering Indication Dosage Frequency Signature Comments Components Source Medication Medication Date Date Medication? Clinician (SIG) Name Name silver Yes [id number] Apply to Uni vers sulfADIAZIN 3-24 area(s) 2 ity of E 00:00: (two) [place] (SILVADENE) 00 times Medical 1 % cream daily. Branch silver Yes [id number] Apply to Uni vers sulfADIAZIN 3-24 area(s) 2 ity of E 00:00: (two) [place] (SILVADENE) 00 times Medical 1 % cream daily. Branch silver 2020-0 Yes [id number] Apply to Uni vers sulfADIAZIN 3-24 area(s) 2 ity of E 00:00: (two) [place] (SILVADENE) 00 times Medical 1 % cream daily. Branch silver 2020-0 Yes [id number] Apply to Uni vers sulfADIAZIN 3-24 area(s) 2 ity of E 00:00: (two) [place] (SILVADENE) 00 times Medical 1 % cream daily. Branch silver Yes [id number] Apply to Uni vers sulfADIAZIN 3-24 area(s) 2 ity of E 00:00: (two) [place] (SILVADENE) 00 times Medical 1 % cream daily. Branch silver 2020-0 Yes [id number] Apply to Uni vers sulfADIAZIN 3-24 area(s) 2 ity of E 00:00: (two) [place] (SILVADENE) 00 times Medical 1 % cream daily. Branch silver 2020-0 Yes [id number] Apply to Uni vers sulfADIAZIN 3-24 area(s) 2 ity of E 00:00: (two) [place] (SILVADENE) 00 times Medical 1 % cream daily. Branch silver 2020-0 Yes [id number] Apply to Uni vers sulfADIAZIN 3-24 area(s) [...] Germ[place] as 00 at 0928, Medical Until [place] Discontinu ed, Routine, Intra-op bupivacaine Yes PRN, [...] 1 [place] as mg 00 :00 dose, [facility] 06/17/20 at Branch 0530, Routine, [facility] Pre-op ceFAZolin No 2000mg 2 g (2,000 Univers in dextrose 06-17 mg), IV ity of (iso-os) 11:30: 12:56 [place] (ANCEF) 2 00 :00 ONCE, 1 Medical gram/100 mL dose, [facility] Piggyback 2 06/17/20 at g 0530, 100 mL, [facility] Pre-op
Reason for Anti-Infec tive: Surgical Prophylaxi s
Surgi harvey Prophylaxi s: Other (see Comments)< br>Duratio n of therapy: within 24 hours of surgery lactated No 1000mL at 42 Unive rs ringers IV 06-1702 mL/hr, ity of infusion 11:30: 11:48 1,000 mL, [place] as 1,000 mL 00 :00 IV Medical Infusion, [place] ONCE, 1 dose, [facility] 06/17/20 at 0530, Routine, [facility] Pre-op gabapentin 2020- No 600mg Take 1 Uni vers 600 mg 06-1717 tablet by ity of tablet 00:00: 04:59 mouth 3 [place] 00 :00 (three) Medical times [place] daily for 14 days. gabapentin 2020- No [...] Branch daily for 14 days. chlorhexidi Yes [id number] Apply to Univers ne 4 % 2-24 area(s) ity of external 00:00: once daily [place] liquid 00 as needed Medical for Wound Branch care. chlorhexidi 2020-0 Yes [id number] Apply to Univers ne 4 % 2-24 area(s) ity of external 00:00: once daily [place] liquid 00 as needed Medical for Wound Branch care. chlorhexidi 0 Yes [id number] Apply to Univers ne 4 % 2-24 area(s) ity of external 00:00: once daily [place] liquid 00 as needed Medical for Wound Branch care. chlorhexidi 0 Yes [id number] Apply to Univers ne 4 % 2-24 area(s) ity of external 00:00: once daily [place] liquid 00 as needed Medical for Wound Branch care. chlorhexidi 0 Yes [id number] Apply to Univers ne 4 % 2-24 area(s) ity of external 00:00: once daily [place] liquid 00 as needed Medical for Wound Branch care. gabapentin 2020- No [id number] 600mg Take 1 Univers ER 600 mg 2-24 03-11 tablet by ity of tablet, 00:00: 05:59 mouth [place] extended 00 :00 every 8 Medical release 24 (eight) Branch hr hours for 14 days. acetaminoph 2020-2020- No [id number] 1000mg Take 2 Univers en (TYLENOL 2-24 03-11 tablets by i ty of EXTRA 00:00: 05:59 mouth [place] STRENGTH) 00 :00 every 8 Medical 500 mg (eight) Branch tablet hours for 14 days. celecoxib 2020- No [id number] 200mg Take 1 Univers (CELEBREX) 224 03-11 capsule by it y of 200 mg 00:00: 05:59 mouth 2 [place] capsule 00 :00 (two) Medical times Branch daily with meals for 14 days. gabapentin 2020-2020- No [id number] 600mg Take 1 Univers ER 600 mg 224 03-11 tablet by ity of tablet, 00:00: 05:59 mouth [place] extended 00 :00 every 8 Medical release 24 (eight) Branch hr hours for 14 days. acetaminoph 2020- No [id number] 1000mg Take 2 Univers en (TYLENOL 2-24 03-11 tablets by i ty of EXTRA 00:00: 05:59 mouth [place] STRENGTH) 00 :00 every 8 Medical 500 mg (eight) Branch tablet hours for 14 days. celecoxib 2020-2020- No [id number] 200mg Take 1 Univers (CELEBREX) 2 03-11 capsule by it y of 200 mg 00:00: 05:59 mouth 2 [place] capsule 00 :00 (two) Medical times Branch daily with meals for 14 days. gabapentin 2020-2020- No [id number] 600mg Take 1 Univers ER 600 mg 2 03-11 tablet by ity of tablet, 00:00: 05:59 mouth [place] extended 00 :00 every 8 Medical release 24 (eight) Branch hr hours for 14 days. acetaminoph 2020- No [id number] 1000mg Take 2 Univers en (TYLENOL 224 03-11 tablets by i ty of EXTRA 00:00: 05:59 mouth [place] STRENGTH) 00 :00 every 8 Medical 500 mg (eight) Branch tablet hours for 14 days. celecoxib 2020-2020- No [id number] 200mg Take 1 Univers (CELEBREX) 2-24 03-11 capsule by it y of 200 mg 00:00: 05:59 mouth 2 [place] capsule 00 :00 (two) Medical times Branch daily with meals for 14 days. gabapentin 2020-2020- No [id number] 600mg Take 1 Univers ER 600 mg 2-24 03-11 tablet by ity of tablet, 00:00: 05:59 mouth [place] extended 00 :00 every 8 Medical release 24 (eight) Branch hr hours for 14 days. acetaminoph 2020- No [id number] 1000mg Take 2 Univers en (TYLENOL 2-24 03-11 tablets by i ty of EXTRA 00:00: 05:59 mouth [place] STRENGTH) 00 :00 every 8 Medical 500 mg (eight) Branch tablet hours for 14 days. celecoxib 2020- No [id number] 200mg Take 1 Univers (CELEBREX) 2-24 03-11 capsule by it y of 200 mg 00:00: 05:59 mouth 2 [place] capsule 00 :00 (two) Medical times Branch daily with meals for 14 days. gabapentin 2020- No [id number] 600mg Take 1 Univers ER 600 mg 2-24 03-11 tablet by ity of tablet, 00:00: 05:59 mouth [place] extended 00 :00 every 8 Medical release 24 (eight) Branch hr hours for 14 days. acetaminoph 2020- No [id number] 1000mg Take 2 Univers en (TYLENOL 2-24 03-11 tablets by i ty of EXTRA 00:00: 05:59 mouth [place] STRENGTH) 00 :00 every 8 Medical 500 mg (eight) Branch tablet hours for 14 days. celecoxib 2020- No [id number] 200mg Take 1 Univers (CELEBREX) 2 03-11 capsule by it y of 200 mg 00:00: 05:59 mouth 2 [place] capsule 00 :00 (two) Medical times Branch daily with meals for 14 days. gabapentin 2020- No [id number] 600mg Take 1 Univers ER 600 mg 2 03-11 tablet by ity of tablet, 00:00: 05:59 mouth [place] extended 00 :00 every 8 Medical release 24 (eight) Branch hr hours for 14 days. acetaminoph 2020- No [id number] 1000mg Take 2 Univers en (TYLENOL 2-24 03-11 tablets by i ty of EXTRA 00:00: 05:59 mouth [place] STRENGTH) 00 :00 every 8 Medical 500 mg (eight) Branch tablet hours for 14 days. celecoxib 2020- No [id number] 200mg Take 1 Univers (CELEBREX) 2-24 03-11 capsule by it y of 200 mg 00:00: 05:59 mouth 2 [place] capsule 00 :00 (two) Medical times Branch daily with meals for 14 days. acetaminoph 2020- No [id number] 1000mg Take 2 Univers en (TYLENOL 2-24 03-11 tablets by i ty of EXTRA 00:00: 05:59 mouth [place] STRENGTH) 00 :00 every 8 Medical 500 mg (eight) Branch tablet hours for 14 days. celecoxib 2020- No [id number] 200mg Take 1 Univers (CELEBREX) 2-24 03-11 capsule by it y of 200 mg 00:00: 05:59 mouth 2 [place] capsule 00 :00 (two) Medical times Branch daily with meals for 14 days. acetaminoph 2020- No [id number] 1000mg Take 2 Univers en (TYLENOL 2-24 03-11 tablets by i ty of EXTRA 00:00: 05:59 mouth [place] STRENGTH) 00 :00 every 8 Medical 500 mg (eight) Branch tablet hours for 14 days. celecoxib 2020- No [id number] 200mg Take 1 Univers (CELEBREX) 2-24 03-11 capsule by it y of 200 mg 00:00: 05:59 mouth 2 [place] capsule 00 :00 (two) Medical times Branch daily with meals for 14 days. acetaminoph 2020- No [id number] 1000mg Take 2 Univers en (TYLENOL 2-24 03-11 tablets by i ty of EXTRA 00:00: 05:59 mouth [place] STRENGTH) 00 :00 every 8 Medical 500 mg (eight) Branch tablet hours for 14 days. celecoxib 2020- No [id number] 200mg Take 1 Univers (CELEBREX) 2-24 03-11 capsule by it y of 200 mg 00:00: 05:59 mouth 2 [place] capsule 00 :00 (two) Medical times Branch daily with meals for 14 days. acetaminoph 2020- No [id number] 1000mg Take 2 Univers en (TYLENOL 2-24 03-11 tablets by i ty of EXTRA 00:00: 05:59 mouth [place] STRENGTH) 00 :00 every 8 Medical 500 mg (eight) Branch tablet hours for 14 days. celecoxib 2020- No [id number] 200mg Take 1 Univers (CELEBREX) 2-24 03-11 capsule by it y of 200 mg 00:00: 05:59 mouth 2 [place] capsule 00 :00 (two) Medical times Branch daily with meals for 14 days. chlorhexidi 2020- No [id number] Apply to Univers ne 4 % 06-11 area(s) ity of external 00:00: 00:00 once daily [place] liquid 00 :00 as needed Medical for Wound Branch care. gabapentin 2020- No [id number] 600mg Take 1 Univers ER 600 mg 06-11 tablet by ity of tablet, 00:00: 00:00 mouth [place] extended 00 :00 every 8 Medical release 24 (eight) Branch hr hours for 14 days. scopolamine 2020- No [id number] 1.5mg Apply 1 Univers transdermal 06-11- Patch to ity of 1 mg over 3 00:00: 05:59 area(s) [place] days patch 00 :00 every 72 Medic al (seventy-t Branch wo) hours for 3 days. scopolamine 2020- No [id number] 1.5mg Apply 1 Univers transdermal 06-11- Patch to ity of 1 mg over 3 00:00: 05:59 area(s) [place] days patch 00 :00 every 72 Medic al (seventy-t Branch wo) hours for 3 days. scopolamine 2020- No [id number] 1.5mg Apply 1 Univers transdermal 06-11 Patch [...] [facility] Medical 1,000 mg 01/20/20 at [facility] h 1600, [place] traMADoL 50 [...] Indication s: acute pain ibuprofen 2019-04- No [id number] 800mg Take 1 Univers 800 mg 0-04 10-04 tablet by ity of tablet 00:00: 00:00 mouth [place] 00 :00 every 8 Medical (eight) Branch hours as needed for Pain (scale 4-6) for up to 30 doses. ibuprofen 2020-0 Yes [id number] 800mg Take 1 U nivers 800 mg 4-03 tablet by ity of tablet 00:00: mouth [place] 00 every 8 Medical (eight) Branch hours. ibuprofen 2020-0 Yes [id number] 800mg Take 1 U nivers 800 mg 4-03 tablet by ity of tablet 00:00: mouth [place] 00 every 8 Medical (eight) Branch hours. ibuprofen 2020-0 Yes [id number] 800mg Take 1 U nivers 800 mg 4-03 tablet by ity of tablet 00:00: mouth [place] 00 every 8 Medical (eight) Branch hours. ibuprofen 2020-0 Yes [id number] 800mg Take 1 U nivers 800 mg 4-03 tablet by ity of tablet 00:00: mouth [place] 00 every 8 Medical (eight) Branch hours. ibuprofen 2020-0 Yes [id number] 800mg Take 1 U nivers 800 mg 4-03 tablet by ity of tablet 00:00: mouth [place] 00 every 8 Medical (eight) Branch hours. ibuprofen 2020-0 Yes [id number] 800mg Take 1 U nivers 800 mg 4-03 tablet by ity of tablet 00:00: mouth [place] 00 every 8 Medical (eight) Branch hours. ibuprofen 2020-0 Yes [id number] 800mg Take 1 U nivers 800 mg 4-03 tablet by ity of tablet 00:00: mouth [place] 00 every 8 Medical (eight) Branch hours. ibuprofen 2020-0 Yes [id number] 800mg Take 1 U nivers 800 mg 4-03 tablet by ity of tablet 00:00: mouth [place] 00 every 8 Medical (eight) Branch hours. ibuprofen 2020-0 Yes [id number] 800mg Take 1 U nivers 800 mg 4-03 tablet by ity of tablet 00:00: mouth [place] 00 every 8 Medical (eight) Branch hours. ibuprofen 2020-0 2020- No [id number] 800mg Take 1 Univers 800 mg 4-03 09-16 tablet by ity of tablet 00:00: 00:00 mouth [place] 00 :00 every 8 Medical (eight) Branch hours. ibuprofen 2020-0 2020- No [id number] 800mg Take 1 Univers 800 mg 4-03 09-16 tablet by ity of tablet 00:00: 00:00 mouth [place] 00 :00 every 8 Medical (eight) Branch hours. ibuprofen 2019- 2020- No [id number] 800mg Take 1 Univers 800 mg 4-03 09-16 tablet by ity of tablet 00:00: 00:00 mouth [place] 00 :00 every 8 Medical (eight) Branch hours. ibuprofen 2020- No [id number] 800mg Take 1 Univers 800 mg 4-03 09-16 tablet by ity of tablet 00:00: 00:00 mouth [place] 00 :00 every 8 Medical (eight) Branch hours. traMADOL 50 2018- Yes [id number] 50mg Take 1 Univers mg tablet 6-03 tablet by ity o f 00:00: mouth [place] 00 every 6 Medical (six) Branch hours as needed for Pain (scale 4-6). ibuprofen Yes [id number] 800mg Take 1 U nivers 800 mg 6-03 tablet by ity of tablet 00:00: mouth [place] 00 every 8 Medical (eight) Branch hours. traMADOL 50 2020- No [id number] 50mg Take 1 Univers mg tablet 6-03 04-03 tablet by ity of 00:00: 00:00 mouth [place] 00 :00 every 6 Medical (six) Branch hours as needed for Pain (scale 4-6). ibuprofen 2018- 2020- No [id number] 800mg Take 1 Univers 800 mg 6-03 04-03 tablet by ity of tablet 00:00: 00:00 mouth [place] 00 :00 every 8 Medical (eight) Branch hours. traMADOL 50 2018-0 2020- No [id number] 50mg Take 1 Univers mg tablet 6-03 04-03 tablet by ity of 00:00: 00:00 mouth [place] 00 :00 every 6 Medical (six) Branch hours as needed for Pain (scale 4-6). ibuprofen 2020- No [id number] 800mg Take 1 Univers 800 mg 6-03 04-03 tablet by ity of tablet 00:00: 00:00 mouth [place] 00 :00 every 8 Medical (eight) Branch hours. Dextrometho Yes [id number] 10mL Take 10 mL Univers rphan-Guaif 2-12 by mouth 2 it y of enesin 00:00: (two) [place] (DELSYM 00 times Medical COUGH-CHEST daily. Branch CONGEST DM) 5-100 mg/5 mL Liqd Dextrometho 2019- No [id number] 10mL Take 10 mL Univers rpbekah-Onelf 05-30 by mouth 2 i ty of enesin 00:00: 00:00 (two) [place] (DELSY 00 :00 times Medical COUGH-CHEST daily. Branch CONGEST DM) 5-100 mg/5 mL Liqd Dextrometho 2019- No [id number] 10mL Take 10 mL Univers rpbekah-Julianaif 05-30 by mouth 2 i ty of enesin 00:00: 00:00 (two) [place] (DELSYM 00 :00 times Medical COUGH-CHEST daily. Branch CONGEST DM) 5-100 mg/5 mL Liqd Ibuprofen Ibuprofen No Ibuprofen [facility] No known No Univers medications [facility] No known No Univers medications [facility] No known No Univers medications [facility] No known No Univers medications [facility] Hydrocodone Hydrocodone No Hydrocodon [facility] -Acetaminop -Ac[facility]op [facility]amin [facility] Tr[facility] Tramadol No Tramadol Com mon HCl HCl HCl [facility] Tramadol Tramadol No Tramadol HCl HCl [...] y of Vaccine Quad IM 3+ 00:00:00 [facility] Meningococcal B, OMV 2017-05-25 Completed Univ ersity of 00:00:00 [facility] Meningococcal 2017-05-25 Completed University of Polysaccharide 00:00:00 [place] Medi harvey (groups A, C, Y and Branc h W-135) conjugate vaccine (MCV4P) Influenza Virus 2017-05-25 Completed Universit y of Vaccine Quad IM 3+ 00:00:00 [facility] Meningococcal B, OMV 2017-05-25 Completed Univ ersity of 00:00:00 [facility] Meningococcal 2017-05-25 Completed University of Polysaccharide 00:00:00 [place] Medi harvey (groups A, C, Y and Branc h W-135) conjugate vaccine (MCV4P) Influenza Virus 2017-05-25 Completed Universit y of Vaccine Quad IM 3+ 00:00:00 [facility] Meningococcal B, OMV 2017-05-25 Completed Univ ersity of 00:00:00 [facility] Meningococcal 2017-05-25 Completed University of Polysaccharide 00:00:00 [place] Medi harvey (groups A, C, Y and Branc h W-135) conjugate vaccine (MCV4P) Meningococcal 2017-05-25 Completed University of Polysaccharide 00:00:00 [place] Medi harvey (groups A, C, Y and Branc h W-135) conjugate vaccine (MCV4P) Influenza Virus 2017-05-25 Completed Universit y of Vaccine Quad IM 3+ 00:00:00 [facility] Meningococcal B, OMV 2017-05-25 Completed Univ ersity of 00:00:00 [facility] Influenza Virus 2017-05-25 Completed Universit y of Vaccine Quad IM 3+ 00:00:00 [facility] Meningococcal B, OMV 2017-05-25 Completed Univ ersity of 00:00:00 [facility] Meningococcal 2017-05-25 Completed University of Polysaccharide 00:00:00 [place] Medi harvey (groups A, C, Y and Branc h W-135) conjugate vaccine (MCV4P) Influenza Virus 2017-05-25 Completed Universit y of Vaccine Quad IM 3+ 00:00:00 [facility] Meningococcal B, OMV 2017-05-25 Completed Univ ersity of 00:00:00 [facility] Meningococcal 2017-05-25 Completed University of Polysaccharide 00:00:00 [place] Medi harvey (groups A, C, Y and Branc h W-135) conjugate vaccine (MCV4P) Influenza Virus 2017-05-25 Completed Universit y of Vaccine Quad IM 3+ 00:00:00 [facility] Meningococcal B, OMV 2017-05-25 Completed Univ ersity of 00:00:00 [facility] Meningococcal 2017-05-25 Completed University of Polysaccharide 00:00:00 [place] Medi harvey (groups A, C, Y and Branc h W-135) conjugate vaccine (MCV4P) Influenza Virus 2017-05-25 Completed Universit y of Vaccine Quad IM 3+ 00:00:00 [facility] Meningococcal B, OMV 2017-05-25 Completed Univ ersity of 00:00:00 [facility] Meningococcal 2017-05-25 Completed University of Polysaccharide 00:00:00 [place] Medi harvey (groups A, C, Y and Branc h W-135) conjugate vaccine (MCV4P) Influenza Virus 2017-05-25 Completed Universit y of Vaccine Quad IM 3+ 00:00:00 [facility] Meningococcal B, OMV 2017-05-25 Completed Univ ersity of 00:00:00 [facility] Meningococcal 2017-05-25 Completed University of Polysaccharide 00:00:00 [place] Medi harvey (groups A, C, Y and Branc h W-135) conjugate vaccine (MCV4P) Influenza Virus 2017-05-25 Completed Universit y of Vaccine Quad IM 3+ 00:00:00 [facility] Meningococcal B, OMV 2017-05-25 Completed Univ ersity of 00:00:00 [facility] Meningococcal 2017-05-25 Completed University of Polysaccharide 00:00:00 [place] Medi harvey (groups A, C, Y and Branc h W-135) conjugate vaccine (MCV4P) Influenza Virus 2017-05-25 Completed Universit y of Vaccine Quad IM 3+ 00:00:00 [facility] Meningococcal B, OMV 2017-05-25 Completed Univ ersity of 00:00:00 [facility] Meningococcal 2017-05-25 Completed University of Polysaccharide 00:00:00 [place] Medi harvey (groups A, C, Y and Branc h W-135) conjugate vaccine (MCV4P) Influenza Virus 2017-05-25 Completed Universit y of Vaccine Quad IM 3+ 00:00:00 [facility] Meningococcal B, OMV 2017-05-25 Completed Univ ersity of 00:00:00 [facility] Meningococcal 2017-05-25 Completed University of Polysaccharide 00:00:00 [place] Medi harvey (groups A, C, Y and Branc h W-135) conjugate vaccine (MCV4P) Influenza Virus 2017-05-25 Completed Universit y of Vaccine Quad IM 3+ 00:00:00 [facility] Meningococcal B, OMV 2017-05-25 Completed Univ ersity of 00:00:00 [facility] Meningococcal 2017-05-25 Completed University of Polysaccharide 00:00:00 [place] Medi harvey (groups A, C, Y and Branc h W-135) conjugate vaccine (MCV4P) Influenza Virus 2017-05-25 Completed Universit y of Vaccine Quad IM 3+ 00:00:00 [facility] Meningococcal B, OMV 2017-05-25 Completed Univ ersity of 00:00:00 [facility] Meningococcal 2017-05-25 Completed University of Polysaccharide 00:00:00 [place] Medi harvey (groups A, C, Y and Branc h W-135) conjugate vaccine (MCV4P) Influenza Virus 2017-05-25 Completed Universit y of Vaccine Quad IM 3+ 00:00:00 [facility] Meningococcal B, OMV 2017-05-25 Completed Univ ersity of 00:00:00 [facility] Meningococcal 2017-05-25 Completed University of Polysaccharide 00:00:00 [place] Medi harvey (groups A, C, Y and Branc h W-135) conjugate vaccine (MCV4P) Influenza Virus 2017-05-25 Completed Universit y of Vaccine Quad IM 3+ 00:00:00 [facility] Meningococcal B, OMV 2017-05-25 Completed Univ ersity of 00:00:00 [facility] Meningococcal 2017-05-25 Completed University of Polysaccharide 00:00:00 [place] Medi harvey (groups A, C, Y and Branc h W-135) conjugate vaccine (MCV4P) Influenza Virus 2017-05-25 Completed Universit y of Vaccine Quad IM 3+ 00:00:00 [facility] Meningococcal B, OMV 2017-05-25 Completed Univ ersity of 00:00:00 [facility] Meningococcal 2017-05-25 Completed University of Polysaccharide 00:00:00 [place] Medi harvey (groups A, C, Y and Branc h W-135) conjugate vaccine (MCV4P) Influenza Virus 2017-05-25 Completed Universit y of Vaccine Quad IM 3+ 00:00:00 [facility] Meningococcal B, OMV 2017-05-25 Completed Univ ersity of 00:00:00 [facility] Meningococcal 2017-05-25 Completed University of Polysaccharide 00:00:00 [place] Medi harvey (groups A, C, Y and Branc h W-135) conjugate vaccine (MCV4P) Influenza Virus 2017-05-25 Completed Universit y of Vaccine Quad IM 3+ 00:00:00 [facility] Meningococcal B, OMV 2017-05-25 Completed Univ ersity of 00:00:00 [facility] Meningococcal 2017-05-25 Completed University of Polysaccharide 00:00:00 [place] Medi harvey (groups A, C, Y and Branc h W-135) conjugate vaccine (MCV4P) Influenza Virus 2017-05-25 Completed Universit y of Vaccine Quad IM 3+ 00:00:00 [facility] Meningococcal B, OMV 2017-05-25 Completed Univ ersity of 00:00:00 [facility] Meningococcal 2017-05-25 Completed University of Polysaccharide 00:00:00 [place] Medi harvey (groups A, C, Y and Branc h W-135) conjugate vaccine (MCV4P) Influenza Virus 2017-05-25 Completed Universit y of Vaccine Quad IM 3+ 00:00:00 [facility] Meningococcal B, OMV 2017-05-25 Completed Univ ersity of 00:00:00 [facility] Meningococcal 2017-05-25 Completed University of Polysaccharide 00:00:00 [place] Medi harvey (groups A, C, Y and Branc h W-135) conjugate vaccine (MCV4P) Influenza Virus 2017-05-25 Completed [facility] Vaccine Quad IM 3+ 00:00:00 [facility] Meningococcal B, OMV 2017-05-25 Completed [facility] 00:00:00 [facility] Meningococcal 2017-05-25 Completed [facility] Polysaccharide 00:00:00 [facility] (groups A, C, Y and Branc h W-135) conjugate vaccine (MCV4P) Influenza Virus 2017-05-25 Completed [facility] Vaccine Quad IM 3+ 00:00:00 [facility] Meningococcal B, OMV 2017-05-25 Completed [facility] 00:00:00 [facility] Meningococcal 2017-05-25 Completed [facility] Polysaccharide 00:00:00 [facility] (groups A, C, Y and Branc h W-135) conjugate vaccine (MCV4P) Influenza Virus 2017-05-25 Completed [facility] Vaccine Quad IM 3+ 00:00:00 [facility] Meningococcal B, OMV 2017-05-25 Completed [facility] 00:00:00 [facility] Meningococcal 2017-05-25 Completed [facility] Polysaccharide 00:00:00 [facility] (groups A, C, Y and Branc h W-135) conjugate vaccine (MCV4P) Influenza Virus 2017-05-25 Completed [facility] Vaccine Quad IM 3+ 00:00:00 [facility] Meningococcal B, OMV 2017-05-25 Completed [facility] 00:00:00 [facility] Meningococcal 2017-05-25 Completed [facility] Polysaccharide 00:00:00 [facility] (groups A, C, Y and Branc h W-135) conjugate vaccine (MCV4P) Influenza Virus 2017-05-25 Completed [facility] Vaccine Quad IM 3+ 00:00:00 [facility] Meningococcal B, OMV 2017-05-25 Completed [facility] 00:00:00 [facility] Meningococcal 2017-05-25 Completed [facility] Polysaccharide 00:00:00 [facility] (groups A, C, Y and Branc h W-135) conjugate vaccine (MCV4P) Influenza Virus 2017-05-25 Completed [facility] Vaccine Quad IM 3+ 00:00:00 [facility] Meningococcal B, OMV 2017-05-25 Completed [facility] 00:00:00 [facility] Meningococcal 2017-05-25 Completed [facility] Polysaccharide 00:00:00 [facility] (groups A, C, Y and Branc h W-135) conjugate vaccine (MCV4P) Influenza Virus 2017-05-25 Completed [facility] Vaccine Quad IM 3+ 00:00:00 [facility] Meningococcal B, OMV 2017-05-25 Completed [facility] 00:00:00 [facility] Meningococcal 2017-05-25 Completed [facility] Polysaccharide 00:00:00 [facility] (groups A, C, Y and Branc h W-135) conjugate vaccine (MCV4P) Influenza Virus 2017-05-25 Completed [facility] Vaccine Quad IM 3+ 00:00:00 [facility] Meningococcal B, OMV 2017-05-25 Completed [facility] 00:00:00 [facility] Meningococcal 2017-05-25 Completed [facility] Polysaccharide 00:00:00 [facility] (groups A, C, Y and Branc h W-135) conjugate vaccine (MCV4P) Influenza Virus 2017-05-25 Completed [facility] Vaccine Quad IM 3+ 00:00:00 [facility] Meningococcal B, OMV 2017-05-25 Completed [facility] 00:00:00 [facility] Meningococcal 2017-05-25 Completed [facility] Polysaccharide 00:00:00 [facility] (groups A, C, Y and Branc h W-135) conjugate vaccine (MCV4P) Influenza Virus 2017-05-25 Completed [facility] Vaccine Quad IM 3+ 00:00:00 [facility] Meningococcal B, OMV 2017-05-25 Completed [facility] 00:00:00 [facility] Meningococcal 2017-05-25 Completed [facility] Polysaccharide 00:00:00 [facility] (groups A, C, Y and Branc h W-135) conjugate vaccine (MCV4P) Influenza Virus 2017-05-25 Completed [facility] Vaccine Quad IM 3+ 00:00:00 [facility] Meningococcal B, OMV 2017-05-25 Completed [facility] 00:00:00 [facility] Meningococcal 2017-05-25 Completed [facility] Polysaccharide 00:00:00 [facility] (groups A, C, Y and Branc h W-135) conjugate vaccine (MCV4P) Influenza Virus 2017-05-25 Completed [facility] Vaccine Quad IM 3+ 00:00:00 [facility] Meningococcal B, OMV 2017-05-25 Completed [facility] 00:00:00 [facility] Meningococcal 2017-05-25 Completed [facility] Polysaccharide 00:00:00 [facility] (groups A, C, Y and Branc h W-135) conjugate vaccine (MCV4P) Influenza Virus 2017-05-25 Completed [facility] Vaccine Quad IM 3+ 00:00:00 [facility] Meningococcal B, OMV 2017-05-25 Completed [facility] 00:00:00 [facility] Meningococcal 2017-05-25 Completed [facility] Polysaccharide 00:00:00 [facility] (groups A, C, Y and Branc h W-135) conjugate vaccine (MCV4P) Influenza Virus 2017-05-25 Completed [facility] Vaccine Quad IM 3+ 00:00:00 [facility] Meningococcal B, OMV 2017-05-25 Completed [facility] 00:00:00 [facility] Meningococcal 2017-05-25 Completed [facility] Polysaccharide 00:00:00 [facility] (groups A, C, Y and Branc h W-135) conjugate vaccine (MCV4P) Influenza Virus 2017-05-25 Completed [facility] Vaccine Quad IM 3+ 00:00:00 [facility] Meningococcal B, OMV 2017-05-25 Completed [facility] 00:00:00 [facility] Meningococcal 2017-05-25 Completed [facility] Polysaccharide 00:00:00 [facility] (groups A, C, Y and Branc h W-135) conjugate vaccine (MCV4P) Influenza Virus 2017-05-25 Completed [facility] Vaccine Quad IM 3+ 00:00:00 [facility] Meningococcal B, OMV 2017-05-25 Completed [facility] 00:00:00 [facility] Meningococcal 2017-05-25 Completed [facility] Polysaccharide 00:00:00 [facility] (groups A, C, Y and Branc h W-135) conjugate vaccine (MCV4P) Influenza Virus 2017-05-25 Completed [facility] Vaccine Quad IM 3+ 00:00:00 [facility] Meningococcal B, OMV 2017-05-25 Completed [facility] 00:00:00 [facility] Meningococcal 2017-05-25 Completed [facility] Polysaccharide 00:00:00 [facility] (groups A, C, Y and Branc h W-135) conjugate vaccine (MCV4P) Influenza Virus 2017-05-25 Completed [facility] Vaccine Quad IM 3+ 00:00:00 [facility] Meningococcal B, OMV 2017-05-25 Completed [facility] 00:00:00 [facility] Meningococcal 2017-05-25 Completed [facility] Polysaccharide 00:00:00 [facility] (groups A, C, Y and Branc h W-135) conjugate vaccine (MCV4P) Influenza Virus 2017-05-25 Completed [facility] Vaccine Quad IM 3+ 00:00:00 [facility] Meningococcal B, OMV 2017-05-25 Completed [facility] 00:00:00 [facility] Meningococcal 2017-05-25 Completed [facility] Polysaccharide 00:00:00 [facility] (groups A, C, Y and Branc h W-135) conjugate vaccine (MCV4P) Influenza Virus 2017-05-25 Completed [facility] Vaccine Quad IM 3+ 00:00:00 [facility] Meningococcal B, OMV 2017-05-25 Completed [facility] 00:00:00 [facility] Meningococcal 2017-05-25 Completed [facility] Polysaccharide 00:00:00 [facility] (groups A, C, Y and Branc h W-135) conjugate vaccine (MCV4P) Influenza Virus 2017-05-25 Completed [facility] Vaccine Quad IM 3+ 00:00:00 [facility] Meningococcal B, OMV 2017-05-25 Completed [facility] 00:00:00 [facility] Meningococcal 2017-05-25 Completed [facility] Polysaccharide 00:00:00 [facility] (groups A, C, Y and Branc h W-135) conjugate vaccine (MCV4P) Influenza Virus 2017-05-25 Completed [facility] Vaccine Quad IM 3+ 00:00:00 [facility] Meningococcal B, OMV 2017-05-25 Completed [facility] 00:00:00 [facility] Meningococcal 2017-05-25 Completed [facility] Polysaccharide 00:00:00 [facility] (groups A, C, Y and Branc h W-135) conjugate vaccine (MCV4P) Influenza Virus 2017-05-25 Completed [facility] Vaccine Quad IM 3+ 00:00:00 [facility] Meningococcal B, OMV 2017-05-25 Completed [facility] 00:00:00 [facility] Meningococcal 2017-05-25 Completed [facility] Polysaccharide 00:00:00 [facility] (groups A, C, Y and Branc h W-135) conjugate vaccine (MCV4P) Influenza Virus 2017-05-25 Completed [facility] Vaccine Quad IM 3+ 00:00:00 [facility] Meningococcal B, OMV 2017-05-25 Completed [facility] 00:00:00 [facility] Meningococcal 2017-05-25 Completed [facility] Polysaccharide 00:00:00 [facility] (groups A, C, Y and Branc h W-135) conjugate vaccine (MCV4P) Influenza Virus 2017-05-25 Completed [facility] Vaccine Quad IM 3+ 00:00:00 [facility] Meningococcal B, OMV 2017-05-25 Completed [facility] 00:00:00 [facility] Meningococcal 2017-05-25 Completed [facility] Polysaccharide 00:00:00 [facility] (groups A, C, Y and Branc h W-135) conjugate vaccine (MCV4P) Influenza Virus 2017-05-25 Completed [facility] Vaccine Quad IM 3+ 00:00:00 [facility] Meningococcal B, OMV 2017-05-25 Completed [facility] 00:00:00 [facility] Meningococcal 2017-05-25 Completed [facility] Polysaccharide 00:00:00 [facility] (groups A, C, Y and Branc h W-135) conjugate vaccine (MCV4P) Influenza Virus 2017-05-25 Completed [facility] Vaccine Quad IM 3+ 00:00:00 [facility] Meningococcal B, OMV 2017-05-25 Completed [facility] 00:00:00 [facility] Meningococcal 2017-05-25 Completed [facility] Polysaccharide 00:00:00 [facility] (groups A, C, Y and Branc h W-135) conjugate vaccine (MCV4P) Influenza Virus 2017-05-25 Completed [facility] Vaccine Quad IM 3+ 00:00:00 [facility] Meningococcal B, OMV 2017-05-25 Completed [facility] 00:00:00 [facility] Meningococcal 2017-05-25 Completed [facility] Polysaccharide 00:00:00 [facility] (groups A, C, Y and Branc h W-135) conjugate vaccine (MCV4P) Influenza Virus 2017-05-25 Completed [facility] Vaccine Quad IM 3+ 00:00:00 [facility] Meningococcal B, OMV 2017-05-25 Completed [facility] 00:00:00 [facility] TDAP 2016-09-10 Completed [facility] of 00:00:00 [facility] HPV9 2016-09-10 Completed [facility] of 00:00:00 [facility] Meningococcal 2016-09-10 Completed [facility] Polysaccharide 00:00:00 [facility] (groups A, C, Y and Branc h W-135) conjugate vaccine (MCV4P) TDAP 2016-09-10 Completed [facility] 00:00:00 [facility] HPV9 2016-09-10 Completed [facility] 00:00:00 [facility] Meningococcal 2016-09-10 Completed [facility] Polysaccharide 00:00:00 [facility] (groups A, C, Y and Branc h W-135) conjugate vaccine (MCV4P) TDAP 2016-09-10 Completed [facility] of 00:00:00 [facility] HPV9 2016-09-10 Completed [facility] 00:00:00 [facility] Meningococcal 2016-09-10 Completed [facility] Polysaccharide 00:00:00 [facility] (groups A, C, Y and Branc h W-135) conjugate vaccine (MCV4P) TDAP 2016-09-10 Completed [facility] 00:00:00 [facility] HPV9 2016-09-10 Completed [facility] of 00:00:00 [facility] Meningococcal 2016-09-10 Completed [facility] Polysaccharide 00:00:00 [facility] (groups A, C, Y and Branc h W-135) conjugate vaccine (MCV4P) TDAP 2016-09-10 Completed [facility] 00:00:00 [facility] HPV9 2016-09-10 Completed [facility] of 00:00:00 [facility] Meningococcal 2016-09-10 Completed [facility] Polysaccharide 00:00:00 [facility] (groups A, C, Y and Branc h W-135) conjugate vaccine (MCV4P) TDAP 2016-09-10 Completed [facility] of 00:00:00 [facility] HPV9 2016-09-10 Completed [facility] of 00:00:00 [facility] Meningococcal 2016-09-10 Completed [facility] Polysaccharide 00:00:00 [facility] (groups A, C, Y and Branc h W-135) conjugate vaccine (MCV4P) TDAP 2016-09-10 Completed [facility] 00:00:00 [facility] HPV9 2016-09-10 Completed [facility] of 00:00:00 [facility] Meningococcal 2016-09-10 Completed [facility] Polysaccharide 00:00:00 [facility] (groups A, C, Y and Branc h W-135) conjugate vaccine (MCV4P) Tdap 2016-09-10 Completed [facility] 00:00:00 [facility] HPV9 2016-09-10 Completed [facility] of 00:00:00 [facility] Meningococcal 2016-09-10 Completed [facility] Polysaccharide 00:00:00 [facility] (groups A, C, Y and Branc h W-135) conjugate vaccine (MCV4P) TDAP 2016-09-10 Completed [facility] of 00:00:00 [facility] HPV9 2016-09-10 Completed [facility] of 00:00:00 [facility] Meningococcal 2016-09-10 Completed [facility] Polysaccharide 00:00:00 [facility] (groups A, C, Y and Branc h W-135) conjugate vaccine (MCV4P) TDAP 2016-09-10 Completed [facility] of 00:00:00 [facility] HPV9 2016-09-10 Completed [facility] of 00:00:00 [facility] Meningococcal 2016-09-10 Completed [facility] Polysaccharide 00:00:00 [facility] (groups A, C, Y and Branc h W-135) conjugate vaccine (MCV4P) TDAP 2016-09-10 Completed [facility] of 00:00:00 [facility] HPV9 2016-09-10 Completed [facility] of 00:00:00 [facility] Meningococcal 2016-09-10 Completed [facility] Polysaccharide 00:00:00 [facility] (groups A, C, Y and Branc h W-135) conjugate vaccine (MCV4P) TDAP 2016-09-10 Completed [facility] of 00:00:00 [facility] HPV9 2016-09-10 Completed [facility] of 00:00:00 [facility] Meningococcal 2016-09-10 Completed [facility] Polysaccharide 00:00:00 [facility] (groups A, C, Y and Branc h W-135) conjugate vaccine (MCV4P) TDAP 2016-09-10 Completed [facility] 00:00:00 [facility] HPV9 2016-09-10 Completed [facility] of 00:00:00 [facility] Meningococcal 2016-09-10 Completed [facility] Polysaccharide 00:00:00 [facility] (groups A, C, Y and Branc h W-135) conjugate vaccine (MCV4P) TDAP 2016-09-10 Completed [facility] of 00:00:00 [facility] HPV9 2016-09-10 Completed [facility] of 00:00:00 [facility] Meningococcal 2016-09-10 Completed [facility] Polysaccharide 00:00:00 [facility] (groups A, C, Y and Branc h W-135) conjugate vaccine (MCV4P) TDAP 2016-09-10 Completed [facility] of 00:00:00 [facility] HPV9 2016-09-10 Completed [facility] of 00:00:00 [facility] Meningococcal 2016-09-10 Completed [facility] Polysaccharide 00:00:00 [facility] (groups A, C, Y and Branc h W-135) conjugate vaccine (MCV4P) TDAP 2016-09-10 Completed [facility] 00:00:00 [facility] HPV9 2016-09-10 Completed [facility] of 00:00:00 [facility] Meningococcal 2016-09-10 Completed [facility] Polysaccharide 00:00:00 [facility] (groups A, C, Y and Branc h W-135) conjugate vaccine (MCV4P) TDAP 2016-09-10 Completed [facility] of 00:00:00 [facility] HPV9 2016-09-10 Completed [facility] of 00:00:00 [facility] Meningococcal 2016-09-10 Completed [facility] Polysaccharide 00:00:00 [facility] (groups A, C, Y and Branc h W-135) conjugate vaccine (MCV4P) TDAP 2016-09-10 Completed [facility] 00:00:00 [facility] HPV9 2016-09-10 Completed [facility] of 00:00:00 [facility] Meningococcal 2016-09-10 Completed [facility] Polysaccharide 00:00:00 [facility] (groups A, C, Y and Branc h W-135) conjugate vaccine (MCV4P) HPV9 2016-09-10 Completed [facility] 00:00:00 [facility] Meningococcal 2016-09-10 Completed [facility] Polysaccharide 00:00:00 [facility] (groups A, C, Y and Branc h W-135) conjugate vaccine (MCV4P) TDAP 2016-09-10 Completed [facility] of 00:00:00 [facility] Tdap 2016-09-10 Completed [facility] of 00:00:00 [facility] HPV9 2016-09-10 Completed [facility] of 00:00:00 [facility] Meningococcal 2016-09-10 Completed [facility] Polysaccharide 00:00:00 [facility] (groups A, C, Y and Branc h W-135) conjugate vaccine (MCV4P) TDAP 2016-09-10 Completed [facility] of 00:00:00 [facility] HPV9 2016-09-10 Completed [facility] of 00:00:00 [facility] Meningococcal 2016-09-10 Completed [facility] Polysaccharide 00:00:00 [facility] (groups A, C, Y and Branc h W-135) conjugate vaccine (MCV4P) TDAP 2016-09-10 Completed [facility] of 00:00:00 [facility] HPV9 2016-09-10 Completed [facility] of 00:00:00 [facility] Meningococcal 2016-09-10 Completed [facility] Polysaccharide 00:00:00 [facility] (groups A, C, Y and Branc h W-135) conjugate vaccine (MCV4P) TDAP 2016-09-10 Completed [facility] of 00:00:00 [facility] HPV9 2016-09-10 Completed [facility] of 00:00:00 [facility] Meningococcal 2016-09-10 Completed [facility] Polysaccharide 00:00:00 [facility] (groups A, C, Y and Branc h W-135) conjugate vaccine (MCV4P) TDAP 2016-09-10 Completed [facility] of 00:00:00 [facility] HPV9 2016-09-10 Completed [facility] of 00:00:00 [facility] Meningococcal 2016-09-10 Completed [facility] Polysaccharide 00:00:00 [facility] (groups A, C, Y and Branc h W-135) conjugate vaccine (MCV4P) TDAP 2016-09-10 Completed [facility] of 00:00:00 [facility] HPV9 2016-09-10 Completed [facility] of 00:00:00 [facility] Meningococcal 2016-09-10 Completed [facility] Polysaccharide 00:00:00 [facility] (groups A, C, Y and Branc h W-135) conjugate vaccine (MCV4P) TDAP 2016-09-10 Completed [facility] of 00:00:00 [facility] HPV9 2016-09-10 Completed [facility] of 00:00:00 [facility] Meningococcal 2016-09-10 Completed [facility] Polysaccharide 00:00:00 [facility] (groups A, C, Y and Branc h W-135) conjugate vaccine (MCV4P) TDAP 2016-09-10 Completed [facility] of 00:00:00 [facility] HPV9 2016-09-10 Completed [facility] of 00:00:00 [facility] Meningococcal 2016-09-10 Completed [facility] Polysaccharide 00:00:00 [facility] (groups A, C, Y and Branc h W-135) conjugate vaccine (MCV4P) TDAP 2016-09-10 Completed [facility] of 00:00:00 [facility] HPV9 2016-09-10 Completed [facility] of 00:00:00 [facility] Meningococcal 2016-09-10 Completed [facility] Polysaccharide 00:00:00 [facility] (groups A, C, Y and Branc h W-135) conjugate vaccine (MCV4P) HPV9 2016-09-10 Completed [facility] of 00:00:00 [facility] Tdap 2016-09-10 Completed [facility] of 00:00:00 [facility] Meningococcal 2016-09-10 Completed [facility] Polysaccharide 00:00:00 [facility] (groups A, C, Y and Branc h W-135) conjugate vaccine (MCV4P) TDAP 2016-09-10 Completed [facility] of 00:00:00 [facility] HPV9 2016-09-10 Completed [facility] of 00:00:00 [facility] Meningococcal 2016-09-10 Completed [facility] Polysaccharide 00:00:00 [facility] (groups A, C, Y and Branc h W-135) conjugate vaccine (MCV4P) TDAP 2016-09-10 Completed [facility] of 00:00:00 [facility] HPV9 2016-09-10 Completed [facility] of 00:00:00 [facility] Meningococcal 2016-09-10 Completed [facility] Polysaccharide 00:00:00 [facility] (groups A, C, Y and Branc h W-135) conjugate vaccine (MCV4P) TDAP 2016-09-10 Completed [facility] of 00:00:00 [facility] HPV9 2016-09-10 Completed [facility] of 00:00:00 [facility] Meningococcal 2016-09-10 Completed [facility] Polysaccharide 00:00:00 [facility] (groups A, C, Y and Branc h W-135) conjugate vaccine (MCV4P) TDAP 2016-09-10 Completed [facility] of 00:00:00 [facility] HPV9 2016-09-10 Completed [facility] of 00:00:00 [facility] Meningococcal 2016-09-10 Completed [facility] Polysaccharide 00:00:00 [facility] (groups A, C, Y and Branc h W-135) conjugate vaccine (MCV4P) TDAP 2016-09-10 Completed [facility] of 00:00:00 [facility] HPV9 2016-09-10 Completed [facility] of 00:00:00 [facility] Meningococcal 2016-09-10 Completed [facility] Polysaccharide 00:00:00 [facility] (groups A, C, Y and Branc h W-135) conjugate vaccine (MCV4P) Tdap 2016-09-10 Completed [facility] of 00:00:00 [facility] HPV9 2016-09-10 Completed [facility] of 00:00:00 [facility] Meningococcal 2016-09-10 Completed [facility] Polysaccharide 00:00:00 [facility] (groups A, C, Y and Branc h W-135) conjugate vaccine (MCV4P) Tdap 2016-09-10 Completed [facility] of 00:00:00 [facility] HPV9 2016-09-10 Completed [facility] of 00:00:00 [facility] Meningococcal 2016-09-10 Completed [facility] Polysaccharide 00:00:00 [facility] (groups A, C, Y and Branc h W-135) conjugate vaccine (MCV4P) Tdap 2016-09-10 Completed [facility] of 00:00:00 [facility] HPV9 2016-09-10 Completed [facility] of 00:00:00 [facility] Meningococcal 2016-09-10 Completed [facility] Polysaccharide 00:00:00 [facility] (groups A, C, Y and Branc h W-135) conjugate vaccine (MCV4P) TDAP 2016-09-10 Completed [facility] 00:00:00 [facility] HPV9 2016-09-10 Completed [facility] of 00:00:00 [facility] Meningococcal 2016-09-10 Completed [facility] Polysaccharide 00:00:00 [facility] (groups A, C, Y and Branc h W-135) conjugate vaccine (MCV4P) TDAP 2016-09-10 Completed [facility] of 00:00:00 [facility] HPV9 2016-09-10 Completed [facility] of 00:00:00 [facility] Meningococcal 2016-09-10 Completed [facility] Polysaccharide 00:00:00 [facility] (groups A, C, Y and Branc h W-135) conjugate vaccine (MCV4P) TDAP 2016-09-10 Completed [facility] 00:00:00 [facility] HPV9 2016-09-10 Completed [facility] of 00:00:00 [facility] Meningococcal 2016-09-10 Completed [facility] Polysaccharide 00:00:00 [facility] (groups A, C, Y and Branc h W-135) conjugate vaccine (MCV4P) TDAP 2016-09-10 Completed [facility] 00:00:00 [facility] HPV9 2016-09-10 Completed [facility] of 00:00:00 [facility] Meningococcal 2016-09-10 Completed [facility] Polysaccharide 00:00:00 [facility] (groups A, C, Y and Branc h W-135) conjugate vaccine (MCV4P) TDAP 2016-09-10 Completed [facility] 00:00:00 [facility] HPV9 2016-09-10 Completed [facility] of 00:00:00 [facility] Meningococcal 2016-09-10 Completed [facility] Polysaccharide 00:00:00 [facility] (groups A, C, Y and Branc h W-135) conjugate vaccine (MCV4P) TDAP 2016-09-10 Completed [facility] 00:00:00 [facility] HPV9 2016-09-10 Completed [facility] of 00:00:00 [facility] Meningococcal 2016-09-10 Completed [facility] Polysaccharide 00:00:00 [place] [facility] (groups A, C, Y and Branc h W-135) conjugate vaccine (MCV4P) TDAP 2016-09-10 Completed [facility] 00:00:00 [facility] HPV9 2016-09-10 Completed [facility] 00:00:00 [facility] Meningococcal 2016-09-10 Completed [facility] Polysaccharide 00:00:00 [place] [facility] (groups A, C, Y and Branc h W-135) conjugate vaccine (MCV4P) TDAP 2016-09-10 Completed [facility] 00:00:00 [facility] HPV9 2016-09-10 Completed [facility] 00:00:00 [facility] Meningococcal 2016-09-10 Completed [facility] Polysaccharide 00:00:00 [place] [facility] (groups A, C, Y and Branc h W-135) conjugate vaccine (MCV4P) TDAP 2016-09-10 Completed [facility] 00:00:00 [facility] HPV9 2016-09-10 Completed [facility] 00:00:00 [facility] Meningococcal 2016-09-10 Completed [facility] Polysaccharide 00:00:00 [facility] (groups A, C, Y and Branc h W-135) conjugate vaccine (MCV4P) TDAP 2016-09-10 Completed [facility] 00:00:00 [facility] HPV9 2016-09-10 Completed [facility] 00:00:00 [facility] Meningococcal 2016-09-10 Completed [facility] Polysaccharide 00:00:00 [place] [facility] (groups A, C, Y and Branc h W-135) conjugate vaccine (MCV4P) TDAP 2016-09-10 Completed [facility] 00:00:00 [facility] HPV9 2016-09-10 Completed [facility] 00:00:00 [facility] Meningococcal 2016-09-10 Completed [facility] Polysaccharide 00:00:00 [place] [facility] (groups A, C, Y and Branc h W-135) conjugate vaccine (MCV4P) TDAP 2016-09-10 Completed [facility] 00:00:00 [facility] HPV9 2016-09-10 Completed [facility] 00:00:00 [facility] Meningococcal 2016-09-10 Completed [facility] Polysaccharide 00:00:00 [place] [facility] (groups A, C, Y and Branc h W-135) conjugate vaccine (MCV4P) TDAP 2016-09-10 Completed [facility] 00:00:00 [facility] HPV9 2016-09-10 Completed [facility] 00:00:00 [facility] Meningococcal 2016-09-10 Completed [facility] Polysaccharide 00:00:00 [place] [facility] (groups A, C, Y and Branc h W-135) conjugate vaccine (MCV4P) HPV 2010-03-03 Completed [facility] 00:00:00 [facility] Influenza Virus 2010-03-03 Completed [facility] Vaccine 00:00:00 [facility] HPV 2010-03-03 Completed [facility] 00:00:00 [facility] Influenza Virus 2010-03-03 Completed [facility] Vaccine 00:00:00 [facility] HPV 2010-03-03 Completed [facility] 00:00:00 [facility] Influenza Virus 2010-03-03 Completed [facility] of Vaccine 00:00:00 [facility] HPV 2010-03-03 Completed [facility] 00:00:00 [facility] Influenza Virus 2010-03-03 Completed [facility] of Vaccine 00:00:00 [facility] HPV 2010-03-03 Completed [facility] 00:00:00 [facility] Influenza Virus 2010-03-03 Completed [facility] of Vaccine 00:00:00 [facility] HPV 2010-03-03 Completed [facility] 00:00:00 [facility] Influenza Virus 2010-03-03 Completed [facility] of Vaccine 00:00:00 [facility] HPV 2010-03-03 Completed [facility] 00:00:00 [facility] Influenza Virus 2010-03-03 Completed [facility] of Vaccine 00:00:00 [facility] HPV 2010-03-03 Completed [facility] 00:00:00 [facility] Influenza Virus 2010-03-03 Completed [facility] of Vaccine 00:00:00 [facility] HPV 2010-03-03 Completed [facility] 00:00:00 [facility] Influenza Virus 2010-03-03 Completed [facility] of Vaccine 00:00:00 [facility] HPV 2010-03-03 Completed [facility] 00:00:00 [facility] HPV 2010-03-03 Completed [facility] 00:00:00 [facility] Influenza Virus 2010-03-03 Completed [facility] of Vaccine 00:00:00 [facility] Influenza Virus 2010-03-03 Completed [facility] Vaccine 00:00:00 [facility] HPV 2010-03-03 Completed [facility] 00:00:00 [facility] Influenza Virus 2010-03-03 Completed [facility] of Vaccine 00:00:00 [facility] HPV 2010-03-03 Completed [facility] 00:00:00 [facility] Influenza Virus 2010-03-03 Completed [facility] Vaccine 00:00:00 [facility] HPV 2010-03-03 Completed [facility] 00:00:00 [facility] Influenza Virus 2010-03-03 Completed [facility] of Vaccine 00:00:00 [facility] HPV 2010-03-03 Completed [facility] 00:00:00 [facility] Influenza Virus 2010-03-03 Completed [facility] of Vaccine 00:00:00 [facility] HPV 2010-03-03 Completed [facility] 00:00:00 [facility] Influenza Virus 2010-03-03 Completed [facility] of Vaccine 00:00:00 [facility] HPV 2010-03-03 Completed [facility] 00:00:00 [facility] Influenza Virus 2010-03-03 Completed [facility] Vaccine 00:00:00 [facility] HPV 2010-03-03 Completed [facility] 00:00:00 [facility] Influenza Virus 2010-03-03 Completed [facility] of Vaccine 00:00:00 [facility] HPV 2010-03-03 Completed [facility] 00:00:00 [facility] Influenza Virus 2010-03-03 Completed [facility] Vaccine 00:00:00 [facility] HPV 2010-03-03 Completed [facility] 00:00:00 [facility] HPV 2010-03-03 Completed [facility] 00:00:00 [facility] Influenza Virus 2010-03-03 Completed [facility] of Vaccine 00:00:00 [facility] Influenza Virus 2010-03-03 Completed [facility] of Vaccine 00:00:00 [facility] HPV 2010-03-03 Completed [facility] 00:00:00 [facility] Influenza Virus 2010-03-03 Completed [facility] of Vaccine 00:00:00 [facility] HPV 2010-03-03 Completed [facility] 00:00:00 [facility] Influenza Virus 2010-03-03 Completed [facility] of Vaccine 00:00:00 [facility] HPV 2010-03-03 Completed [facility] 00:00:00 [facility] Influenza Virus 2010-03-03 Completed [facility] Vaccine 00:00:00 [facility] HPV 2010-03-03 Completed [facility] 00:00:00 [facility] Influenza Virus 2010-03-03 Completed [facility] of Vaccine 00:00:00 [facility] HPV 2010-03-03 Completed [facility] 00:00:00 [facility] Influenza Virus 2010-03-03 Completed [facility] of Vaccine 00:00:00 [facility] HPV 2010-03-03 Completed [facility] 00:00:00 [facility] Influenza Virus 2010-03-03 Completed [facility] of Vaccine 00:00:00 [facility] HPV 2010-03-03 Completed [facility] 00:00:00 [facility] Influenza Virus 2010-03-03 Completed [facility] of Vaccine 00:00:00 [facility] HPV 2010-03-03 Completed [facility] 00:00:00 [facility] Influenza Virus 2010-03-03 Completed [facility] y of Vaccine 00:00:00 [facility] HPV 2010-03-03 Completed [facility] 00:00:00 [facility] Influenza Virus 2010-03-03 Completed [facility] Vaccine 00:00:00 [facility] HPV 2010-03-03 Completed [facility] 00:00:00 [facility] Influenza Virus 2010-03-03 Completed [facility] of Vaccine 00:00:00 [facility] HPV 2010-03-03 Completed [facility] 00:00:00 [facility] Influenza Virus 2010-03-03 Completed [facility] of Vaccine 00:00:00 [facility] HPV 2010-03-03 Completed [facility] 00:00:00 [facility] Influenza Virus 2010-03-03 Completed [facility] of Vaccine 00:00:00 [facility] HPV 2010-03-03 Completed [facility] 00:00:00 [facility] Influenza Virus 2010-03-03 Completed [facility] of Vaccine 00:00:00 [facility] HPV 2010-03-03 Completed [facility] 00:00:00 [facility] Influenza Virus 2010-03-03 Completed [facility] of Vaccine 00:00:00 [facility] HPV 2010-03-03 Completed [facility] 00:00:00 [facility] Influenza Virus 2010-03-03 Completed [facility] of Vaccine 00:00:00 [facility] HPV 2010-03-03 Completed [facility] 00:00:00 [facility] Influenza Virus 2010-03-03 Completed [facility] y of Vaccine 00:00:00 [facility] HPV 2010-03-03 Completed [facility] 00:00:00 [facility] Influenza Virus 2010-03-03 Completed [facility] of Vaccine 00:00:00 [facility] HPV 2010-03-03 Completed [facility] 00:00:00 [facility] Influenza Virus 2010-03-03 Completed [facility] of Vaccine 00:00:00 [facility] HPV 2010-03-03 Completed [facility] 00:00:00 [facility] Influenza Virus 2010-03-03 Completed [facility] of Vaccine 00:00:00 [facility] HPV 2010-03-03 Completed [facility] 00:00:00 [facility] Influenza Virus 2010-03-03 Completed [facility] of Vaccine 00:00:00 [facility] HPV 2010-03-03 Completed [facility] 00:00:00 [facility] Influenza Virus 2010-03-03 Completed [facility] of Vaccine 00:00:00 [facility] HPV 2010-03-03 Completed [facility] 00:00:00 [facility] Influenza Virus 2010-03-03 Completed [facility] of Vaccine 00:00:00 [facility] HPV 2010-03-03 Completed [facility] 00:00:00 [facility] Influenza Virus 2010-03-03 Completed [facility] of Vaccine 00:00:00 [facility] HPV 2010-03-03 Completed [facility] 00:00:00 [facility] Influenza Virus 2010-03-03 Completed [facility] of Vaccine 00:00:00 [facility] HPV 2010-03-03 Completed [facility] 00:00:00 [facility] Influenza Virus 2010-03-03 Completed [facility] of Vaccine 00:00:00 [facility] HPV 2010-03-03 Completed [facility] 00:00:00 [facility] Influenza Virus 2010-03-03 Completed [facility] of Vaccine 00:00:00 [facility] HPV 2010-03-03 Completed [facility] 00:00:00 [facility] Influenza Virus 2010-03-03 Completed [facility] of Vaccine 00:00:00 [facility] HPV 2010-03-03 Completed [facility] 00:00:00 [facility] Influenza Virus 2010-03-03 Completed [facility] of Vaccine 00:00:00 [facility] HPV 2010-03-03 Completed [facility] 00:00:00 [facility] Influenza Virus 2010-03-03 Completed [facility] of Vaccine 00:00:00 [facility] Varicella 2008-11-15 Completed [facility] (varivax)(chicken 00:00:00 [...] of (varivax)(chicken 00:00:00 [place] [facility] [place] Influenza Virus 2007-06-02 Completed [facility] Vaccine 00:00:00 [facility] Influenza Virus 2007-06-02 Completed [facility] of Vaccine 00:00:00 [facility] Influenza Virus 2007-06-02 Completed [facility] of Vaccine 00:00:00 [facility] Influenza Virus 2007-06-02 Completed [facility] of Vaccine 00:00:00 [facility] Influenza Virus 2007-06-02 Completed [facility] of Vaccine 00:00:00 [facility] Influenza Virus 2007-06-02 Completed [facility] of Vaccine 00:00:00 [facility] Influenza Virus 2007-06-02 Completed [facility] of Vaccine 00:00:00 [facility] Influenza Virus 2007-06-02 Completed [facility] of Vaccine 00:00:00 [facility] Influenza Virus 2007-06-02 Completed [facility] of Vaccine 00:00:00 [facility] Influenza Virus 2007-06-02 Completed [facility] y of Vaccine 00:00:00 [facility] Influenza Virus 2007-06-02 Completed [facility] of Vaccine 00:00:00 [facility] Influenza Virus 2007-06-02 Completed [facility] of Vaccine 00:00:00 [facility] Influenza Virus 2007-06-02 Completed [facility] of Vaccine 00:00:00 [facility] Influenza Virus 2007-06-02 Completed [facility] of Vaccine 00:00:00 [facility] Influenza Virus 2007-06-02 Completed [facility] of Vaccine 00:00:00 [facility] Influenza Virus 2007-06-02 Completed [facility] y of Vaccine 00:00:00 [facility] Influenza Virus 2007-06-02 Completed [facility] of Vaccine 00:00:00 [facility] Influenza Virus 2007-06-02 Completed [facility] of Vaccine 00:00:00 [facility] Influenza Virus 2007-06-02 Completed [facility] of Vaccine 00:00:00 [facility] Influenza Virus 2007-06-02 Completed [facility] of Vaccine 00:00:00 [facility] Influenza Virus 2007-06-02 Completed [facility] of Vaccine 00:00:00 [facility] Influenza Virus 2007-06-02 Completed [facility] of Vaccine 00:00:00 [facility] Influenza Virus 2007-06-02 Completed [facility] of Vaccine 00:00:00 [facility] Influenza Virus 2007-06-02 Completed [facility] of Vaccine 00:00:00 [facility] Influenza Virus 2007-06-02 Completed [facility] of Vaccine 00:00:00 [facility] Influenza Virus 2007-06-02 Completed [facility] Vaccine 00:00:00 [facility] Influenza Virus 2007-06-02 Completed [facility] of Vaccine 00:00:00 [facility] Influenza Virus 2007-06-02 Completed [facility] of Vaccine 00:00:00 [facility] Influenza Virus 2007-06-02 Completed [facility] y of Vaccine 00:00:00 [facility] Influenza Virus 2007-06-02 Completed [facility] of Vaccine 00:00:00 [facility] Influenza Virus 2007-06-02 Completed [facility] of Vaccine 00:00:00 [facility] Influenza Virus 2007-06-02 Completed [facility] of Vaccine 00:00:00 [facility] Influenza Virus 2007-06-02 Completed [facility] of Vaccine 00:00:00 [facility] Influenza Virus 2007-06-02 Completed [facility] of Vaccine 00:00:00 [facility] Influenza Virus 2007-06-02 Completed [facility] of Vaccine 00:00:00 [facility] Influenza Virus 2007-06-02 Completed [facility] of Vaccine 00:00:00 [facility] Influenza Virus 2007-06-02 Completed [facility] of Vaccine 00:00:00 [facility] Influenza Virus 2007-06-02 Completed [facility] of Vaccine 00:00:00 [facility] Influenza Virus 2007-06-02 Completed [facility] of Vaccine 00:00:00 [facility] Influenza Virus 2007-06-02 Completed [facility] of Vaccine 00:00:00 [facility] Influenza Virus 2007-06-02 Completed [facility] of Vaccine 00:00:00 [facility] Influenza Virus 2007-06-02 Completed [facility] of Vaccine 00:00:00 [facility] Influenza Virus 2007-06-02 Completed [facility] of Vaccine 00:00:00 [facility] Influenza Virus 2007-06-02 Completed [facility] of Vaccine 00:00:00 [facility] Influenza Virus 2007-06-02 Completed [facility] of Vaccine 00:00:00 [facility] Influenza Virus 2007-06-02 Completed [facility] of Vaccine 00:00:00 [facility] Influenza Virus 2007-06-02 Completed [facility] of Vaccine 00:00:00 [facility] Influenza Virus 2007-06-02 Completed [facility] y of Vaccine 00:00:00 [facility] Influenza Virus 2007-06-02 Completed [facility] of Vaccine 00:00:00 [facility] Influenza Virus 2007-06-02 Completed [facility] of Vaccine 00:00:00 [facility] HEPATITIS A 2005-11-09 Completed [facility] 00:00:00 [facility] HEPATITIS A 2005-11-09 Completed [facility] 00:00:00 [facility] HEPATITIS A 2005-11-09 Completed [facility] 00:00:00 [facility] HEPATITIS A 2005-11-09 Completed [facility] 00:00:00 [facility] HEPATITIS A 2005-11-09 Completed [facility] 00:00:00 [facility] HEPATITIS A 2005-11-09 Completed [facility] 00:00:00 [facility] HEPATITIS A 2005-11-09 Completed [facility] 00:00:00 [facility] HEPATITIS A 2005-11-09 Completed [facility] 00:00:00 [facility] HEPATITIS A 2005-11-09 Completed [facility] 00:00:00 [facility] HEPATITIS A 2005-11-09 Completed [facility] 00:00:00 [facility] HEPATITIS A 2005-11-09 Completed [facility] 00:00:00 [facility] HEPATITIS A 2005-11-09 Completed [facility] 00:00:00 [facility] HEPATITIS A 2005-11-09 Completed [facility] 00:00:00 [facility] HEPATITIS A 2005-11-09 Completed [facility] 00:00:00 [facility] HEPATITIS A 2005-11-09 Completed [facility] 00:00:00 [facility] HEPATITIS A 2005-11-09 Completed [facility] 00:00:00 [facility] HEPATITIS A 2005-11-09 Completed [facility] 00:00:00 [facility] HEPATITIS A 2005-11-09 Completed [facility] 00:00:00 [facility] HEPATITIS A 2005-11-09 Completed [facility] 00:00:00 [facility] HEPATITIS A 2005-11-09 Completed [facility] 00:00:00 [facility] HEPATITIS A 2005-11-09 Completed [facility] 00:00:00 [facility] HEPATITIS A 2005-11-09 Completed [facility] 00:00:00 [facility] HEPATITIS A 2005-11-09 Completed [facility] 00:00:00 [facility] HEPATITIS A 2005-11-09 Completed [facility] 00:00:00 [facility] HEPATITIS A 2005-11-09 Completed [facility] 00:00:00 [facility] HEPATITIS A 2005-11-09 Completed [facility] 00:00:00 [facility] HEPATITIS A 2005-11-09 Completed [facility] 00:00:00 [facility] HEPATITIS A 2005-11-09 Completed [facility] 00:00:00 [facility] HEPATITIS A 2005-11-09 Completed [facility] 00:00:00 [facility] HEPATITIS A 2005-11-09 Completed [facility] 00:00:00 [facility] HEPATITIS A 2005-11-09 Completed [facility] 00:00:00 [facility] HEPATITIS A 2005-11-09 Completed [facility] 00:00:00 [facility] HEPATITIS A 2005-11-09 Completed [facility] 00:00:00 [facility] HEPATITIS A 2005-11-09 Completed [facility] 00:00:00 [facility] HEPATITIS A 2005-11-09 Completed [facility] 00:00:00 [facility] HEPATITIS A 2005-11-09 Completed [facility] 00:00:00 [facility] HEPATITIS A 2005-11-09 Completed [facility] 00:00:00 [facility] HEPATITIS A 2005-11-09 Completed [facility] 00:00:00 [facility] HEPATITIS A 2005-11-09 Completed [facility] 00:00:00 [facility] HEPATITIS A 2005-11-09 Completed [facility] 00:00:00 [facility] HEPATITIS A 2005-11-09 Completed [facility] 00:00:00 [facility] HEPATITIS A 2005-11-09 Completed [facility] 00:00:00 [facility] HEPATITIS A 2005-11-09 Completed [facility] 00:00:00 [facility] HEPATITIS A 2005-11-09 Completed [facility] 00:00:00 [facility] HEPATITIS A 2005-11-09 Completed [facility] 00:00:00 [facility] HEPATITIS A 2005-11-09 Completed [facility] 00:00:00 [facility] HEPATITIS A 2005-11-09 Completed [facility] 00:00:00 [facility] HEPATITIS A 2005-11-09 Completed [facility] 00:00:00 [facility] HEPATITIS A 2005-11-09 Completed [facility] 00:00:00 [facility] HEPATITIS A 2005-11-09 Completed [facility] 00:00:00 [facility] MMR 2005-06-21 Completed [facility] 00:00:00 [facility] DTAP 2005-06-21 Completed [facility] 00:00:00 [facility] MMR 2005-06-21 Completed [facility] 00:00:00 [facility] Polio (IPV/OPV) 2005-06-21 Completed [facility] 00:00:00 [facility] Varicella 2005-06-21 Completed [facility] (varivax)(chicken 00:00:00 [place] [facility] Polio (IPV/OPV) 2005-06-21 Completed [facility] 00:00:00 [facility] Varicella 2005-06-21 Completed [facility] (varivax)(chicken 00:00:00 [place] [facility] DTAP 2005-06-21 Completed [facility] 00:00:00 [facility] MMR 2005-06-21 Completed [facility] 00:00:00 [facility] Polio (IPV/OPV) 2005-06-21 Completed [facility] 00:00:00 [facility] Varicella 2005-06-21 Completed [facility] (varivax)(chicken 00:00:00 [place] [facility] pox[facility] DTAP 2005-06-21 Completed [facility] 00:00:00 [facility] MMR 2005-06-21 Completed [facility] 00:00:00 [facility] Polio (IPV/OPV) 2005-06-21 Completed [facility] 00:00:00 [facility] Varicella 2005-06-21 Completed [facility] (varivax)(chicken 00:00:00 [place] [facility] DTAP 2005-06-21 Completed [facility] 00:00:00 [facility] MMR 2005-06-21 Completed [facility] 00:00:00 [facility] Polio (IPV/OPV) 2005-06-21 Completed [facility] 00:00:00 [facility] Varicella 2005-06-21 Completed [facility] (varivax)(chicken 00:00:00 [place] [facility] DTAP 2005-06-21 Completed [facility] 00:00:00 [facility] MMR 2005-06-21 Completed [facility] 00:00:00 [facility] Polio (IPV/OPV) 2005-06-21 Completed [facility] 00:00:00 [facility] Varicella 2005-06-21 Completed [facility] (varivax)(chicken 00:00:00 [place] [facility] DTAP 2005-06-21 Completed [facility] 00:00:00 [facility] MMR 2005-06-21 Completed [facility] 00:00:00 [facility] Polio (IPV/OPV) 2005-06-21 Completed [facility] 00:00:00 [facility] Varicella 2005-06-21 Completed [facility] (varivax)(chicken 00:00:00 [place] [facility] DTAP 2005-06-21 Completed [facility] 00[facility]00 [facility] [facility] MMR 2005-06-21 Completed [facility] 00:00:00 [facility] Polio (IPV/OPV) 2005-06-21 Completed [facility] 00:00:00 [facility] Varicella 2005-06-21 Completed [facility] of (varivax)(chicken 00:00:00 [place] [facility] DTAP 2005-06-21 Completed [facility] 00:00:00 [facility] DTAP 2005-06-21 Completed [facility] 00:00:00 [facility] MMR 2005-06-21 Completed [facility] 00:00:00 [facility] Polio (IPV/OPV) 2005-06-21 Completed [facility] 00:00:00 [facility] Varicella 2005-06-21 Completed [facility] (varivax)(chicken 00:00:00 [place] [facility] DTAP 2005-06-21 Completed [facility] 00:00:00 [facility] MMR 2005-06-21 Completed [facility] 00:00:00 [facility] Polio (IPV/OPV) 2005-06-21 Completed [facility] 00:00:00 [facility] Varicella 2005-06-21 Completed [facility] (varivax)(chicken 00:00:00 [place] [facility] DTAP 2005-06-21 Completed [facility] 00:00:00 [facility] MMR 2005-06-21 Completed [facility] 00:00:00 [facility] Polio (IPV/OPV) 2005-06-21 Completed [facility] 00:00:00 [facility] Varicella 2005-06-21 Completed [facility] (varivax)(chicken 00:00:00 [place] [facility] DTAP 2005-06-21 Completed [facility] 00:00:00 [facility] MMR 2005-06-21 Completed [facility] 00:00:00 [facility] MMR 2005-06-21 Completed [facility] 00:00:00 [facility] Polio (IPV/OPV) 2005-06-21 Completed [facility] 00:00:00 [facility] Varicella 2005-06-21 Completed [facility] (varivax)(chicken 00:00:00 [place] [facility] DTAP 2005-06-21 Completed [facility] 00:00:00 [facility] Polio (IPV/OPV) 2005-06-21 Completed [facility] 00:00:00 [facility] MMR 2005-06-21 Completed [facility] 00:00:00 [facility] Polio (IPV/OPV) 2005-06-21 Completed [facility] 00:00:00 [facility] Varicella 2005-06-21 Completed [facility] (varivax)(chicken 00:00:00 [place] [facility] Varicella 2005-06-21 Completed [facility] (varivax)(chicken 00:00:00 [place] [facility] DTAP 2005-06-21 Completed [facility] 00:00:00 [facility] MMR 2005-06-21 Completed [facility] 00:00:00 [facility] Polio (IPV/OPV) 2005-06-21 Completed [facility] 00:00:00 [facility] Varicella 2005-06-21 Completed [facility] (varivax)(chicken 00:00:00 [place] [facility] DTAP 2005-06-21 Completed [facility] 00:00:00 [facility] MMR 2005-06-21 Completed [facility] 00:00:00 [facility] Polio (IPV/OPV) 2005-06-21 Completed [facility] 00:00:00 [facility] Varicella 2005-06-21 Completed [facility] (varivax)(chicken 00:00:00 [place] [facility] DTAP 2005-06-21 Completed [facility] 00:00:00 [facility] MMR 2005-06-21 Completed [facility] 00:00:00 [facility] Polio (IPV/OPV) 2005-06-21 Completed [facility] 00:00:00 [facility] Varicella 2005-06-21 Completed [facility] (varivax)(chicken 00:00:00 [place] [facility] DTAP 2005-06-21 Completed [facility] 00:00:00 [facility] MMR 2005-06-21 Completed [facility] 00:00:00 [facility] Polio (IPV/OPV) 2005-06-21 Completed [facility] 00:00:00 [facility] Varicella 2005-06-21 Completed [facility] (varivax)(chicken 00:00:00 [place] [facility] DTAP 2005-06-21 Completed [facility] 00:00:00 [facility] DTAP 2005-06-21 Completed [facility] 00:00:00 [facility] MMR 2005-06-21 Completed [facility] 00:00:00 [facility] Polio (IPV/OPV) 2005-06-21 Completed [facility] 00:00:00 [facility] Varicella 2005-06-21 Completed [facility] (varivax)(chicken 00:00:00 [place] [facility] DTAP 2005-06-21 Completed [facility] 00:00:00 [facility] MMR 2005-06-21 Completed [facility] 00:00:00 [facility] Polio (IPV/OPV) 2005-06-21 Completed [facility] 00:00:00 [facility] Varicella 2005-06-21 Completed [facility] (varivax)(chicken 00:00:00 [place] [facility] DTAP 2005-06-21 Completed [facility] 00:00:00 [facility] MMR 2005-06-21 Completed [facility] 00:00:00 [facility] Polio (IPV/OPV) 2005-06-21 Completed [facility] 00:00:00 [facility] Varicella 2005-06-21 Completed [facility] (varivax)(chicken 00:00:00 [place] [facility] MMR 2005-06-21 Completed [facility] 00:00:00 [facility] DTAP 2005-06-21 Completed [facility] 00:00:00 [facility] MMR 2005-06-21 Completed [facility] 00:00:00 [facility] Polio (IPV/OPV) 2005-06-21 Completed [facility] 00:00:00 [facility] Varicella 2005-06-21 Completed [facility] (varivax)(chicken 00:00:00 [place] [facility] DTAP 2005-06-21 Completed [facility] 00:00:00 [facility] Polio (IPV/OPV) 2005-06-21 Completed [facility] 00:00:00 [facility] Varicella 2005-06-21 Completed [facility] (varivax)(chicken 00:00:00 [place] [facility] MMR 2005-06-21 Completed [facility] 00:00:00 [facility] Polio (IPV/OPV) 2005-06-21 Completed [facility] 00:00:00 [facility] Varicella 2005-06-21 Completed [facility] (varivax)(chicken 00:00:00 [place] [facility] DTAP 2005-06-21 Completed [facility] 00:00:00 [facility] MMR 2005-06-21 Completed [facility] 00:00:00 [facility] Polio (IPV/OPV) 2005-06-21 Completed [facility] 00:00:00 [facility] Varicella 2005-06-21 Completed [facility] (varivax)(chicken 00:00:00 [place] [facility] DTAP 2005-06-21 Completed [facility] 00:00:00 [facility] MMR 2005-06-21 Completed [facility] 00:00:00 [facility] Polio (IPV/OPV) 2005-06-21 Completed [facility] 00:00:00 [facility] Varicella 2005-06-21 Completed [facility] (varivax)(chicken 00:00:00 [place] [facility] DTAP 2005-06-21 Completed [facility] 00:00:00 [facility] MMR 2005-06-21 Completed [facility] 00:00:00 [facility] Polio (IPV/OPV) 2005-06-21 Completed [facility] 00:00:00 [facility] Varicella 2005-06-21 Completed [facility] (varivax)(chicken 00:00:00 [place] [facility] DTAP 2005-06-21 Completed [facility] 00:00:00 [facility] MMR 2005-06-21 Completed [facility] 00:00:00 [facility] DTAP 2005-06-21 Completed [facility] 00:00:00 [facility] Polio (IPV/OPV) 2005-06-21 Completed [facility] 00:00:00 [facility] Varicella 2005-06-21 Completed [facility] (varivax)(chicken 00:00:00 [place] [facility] DTAP 2005-06-21 Completed [facility] 00:00:00 [facility] MMR 2005-06-21 Completed [facility] 00:00:00 [facility] Polio (IPV/OPV) 2005-06-21 Completed [facility] 00:00:00 [facility] Varicella 2005-06-21 Completed [facility] (varivax)(chicken 00:00:00 [place] [facility] MMR 2005-06-21 Completed [facility] 00:00:00 [facility] Polio (IPV/OPV) 2005-06-21 Completed [facility] 00:00:00 [facility] Varicella 2005-06-21 Completed [facility] (varivax)(chicken 00:00:00 [place] [facility] DTAP 2005-06-21 Completed [facility] 00:00:00 [facility] MMR 2005-06-21 Completed [facility] 00:00:00 [facility] Polio (IPV/OPV) 2005-06-21 Completed [facility] 00:00:00 [facility] Varicella 2005-06-21 Completed [facility] (varivax)(chicken 00:00:00 [place] [facility] DTAP 2005-06-21 Completed [facility] 00:00:00 [facility] MMR 2005-06-21 Completed [facility] 00:00:00 [facility] Polio (IPV/OPV) 2005-06-21 Completed [facility] 00:00:00 [facility] Varicella 2005-06-21 Completed [facility] (varivax)(chicken 00:00:00 [place] [facility] DTAP 2005-06-21 Completed [facility] 00:00:00 [facility] MMR 2005-06-21 Completed [facility] 00:00:00 [facility] Polio (IPV/OPV) 2005-06-21 Completed [facility] 00:00:00 [facility] Varicella 2005-06-21 Completed [facility] (varivax)(chicken 00:00:00 [place] [facility] DTAP 2005-06-21 Completed [facility] 00:00:00 [facility] MMR 2005-06-21 Completed [facility] 00:00:00 [facility] Polio (IPV/OPV) 2005-06-21 Completed [facility] 00:00:00 [facility] Varicella 2005-06-21 Completed [facility] (varivax)(chicken 00:00:00 [place] [facility] DTAP 2005-06-21 Completed [facility] 00:00:00 [facility] MMR 2005-06-21 Completed [facility] 00:00:00 [facility] Polio (IPV/OPV) 2005-06-21 Completed [facility] 00:00:00 [facility] Varicella 2005-06-21 Completed [facility] (varivax)(chicken 00:00:00 [place] [facility] DTAP 2005-06-21 Completed [facility] 00:00:00 [facility] MMR 2005-06-21 Completed [facility] 00:00:00 [facility] Polio (IPV/OPV) 2005-06-21 Completed [facility] 00:00:00 [facility] Varicella 2005-06-21 Completed [facility] (varivax)(chicken 00:00:00 [place] [facility] DTAP 2005-06-21 Completed [facility] 00:00:00 [facility] MMR 2005-06-21 Completed [facility] 00:00:00 [facility] Polio (IPV/OPV) 2005-06-21 Completed [facility] 00:00:00 [facility] Varicella 2005-06-21 Completed [facility] (varivax)(chicken 00:00:00 [place] [facility] DTAP 2005-06-21 Completed [facility] 00:00:00 [facility] MMR 2005-06-21 Completed [facility] 00:00:00 [facility] Polio (IPV/OPV) 2005-06-21 Completed [facility] 00:00:00 [facility] Varicella 2005-06-21 Completed [facility] (varivax)(chicken 00:00:00 [place] [facility] DTAP 2005-06-21 Completed [facility] 00:00:00 [facility] MMR 2005-06-21 Completed [facility] 00:00:00 [facility] Polio (IPV/OPV) 2005-06-21 Completed [facility] 00:00:00 [facility] Varicella 2005-06-21 Completed [facility] (varivax)(chicken 00:00:00 [place] [facility] DTAP 2005-06-21 Completed [facility] 00:00:00 [facility] MMR 2005-06-21 Completed [facility] 00:00:00 [facility] Polio (IPV/OPV) 2005-06-21 Completed [facility] 00:00:00 [facility] Varicella 2005-06-21 Completed [facility] (varivax)(chicken 00:00:00 [place] [facility] DTAP 2005-06-21 Completed [facility] 00:00:00 [facility] MMR 2005-06-21 Completed [facility] 00:00:00 [facility] Polio (IPV/OPV) 2005-06-21 Completed [facility] 00:00:00 [facility] Varicella 2005-06-21 Completed [facility] (varivax)(chicken 00:00:00 [facility] edical pox) Branch DTAP 2005-06-21 Completed [facility] of 00:00:00 [facility] MMR 2005-06-21 Completed [facility] 00:00:00 [facility] Polio (IPV/OPV) 2005-06-21 Completed [facility] 00:00:00 [facility] Varicella 2005-06-21 Completed [facility] (varivax)(chicken 00:00:00 [place] [facility] DTAP 2005-06-21 Completed [facility] 00:00:00 [facility] MMR 2005-06-21 Completed [facility] 00:00:00 [facility] Polio (IPV/OPV) 2005-06-21 Completed [facility] 00:00:00 [facility] Varicella 2005-06-21 Completed [facility] (varivax)(chicken 00:00:00 [place] [facility] DTAP 2005-06-21 Completed [facility] 00:00:00 [facility] MMR 2005-06-21 Completed [facility] 00:00:00 [facility] Polio (IPV/OPV) 2005-06-21 Completed [facility] 00:00:00 [facility] Varicella 2005-06-21 Completed [facility] (varivax)(chicken 00:00:00 [place] [facility] DTAP 2005-06-21 Completed [facility] 00:00:00 [facility] MMR 2005-06-21 Completed [facility] 00:00:00 [facility] Polio (IPV/OPV) 2005-06-21 Completed [facility] 00:00:00 [facility] Varicella 2005-06-21 Completed [facility] (varivax)(chicken 00:00:00 [place] [facility] DTAP 2005-06-21 Completed [facility] 00:00:00 [facility] MMR 2005-06-21 Completed [facility] 00:00:00 [facility] Polio (IPV/OPV) 2005-06-21 Completed [facility] 00:00:00 [facility] Varicella 2005-06-21 Completed [facility] (varivax)(chicken 00:00:00 [place] [facility] DTAP 2005-06-21 Completed [facility] 00:00:00 [facility] DTAP 2005-06-21 Completed [facility] 00:00:00 [facility] MMR 2005-06-21 Completed [facility] 00:00:00 [facility] Polio (IPV/OPV) 2005-06-21 Completed [facility] 00:00:00 [facility] Varicella 2005-06-21 Completed [facility] (varivax)(chicken 00:00:00 [place] [facility] p[facility] DTAP 2005-06-21 Completed [facility] 00:00:00 [facility] MMR 2005-06-21 Completed [facility] 00:00:00 [facility] Polio (IPV/OPV) 2005-06-21 Completed [facility] 00:00:00 [facility] Varicella 2005-06-21 Completed [facility] (varivax)(chicken 00:00:00 [place] [facility] DTAP 2005-06-21 Completed [facility] 00:00:00 [facility] MMR 2005-06-21 Completed [facility] 00:00:00 [facility] Polio (IPV/OPV) 2005-06-21 Completed [facility] 00:00:00 [facility] Varicella 2005-06-21 Completed [facility] (varivax)(chicken 00:00:00 [place] [facility] DTAP 2005-06-21 Completed [facility] 00:00:00 [facility] MMR 2005-06-21 Completed [facility] 00:00:00 [facility] Polio (IPV/OPV) 2005-06-21 Completed [facility] 00:00:00 [facility] Varicella 2005-06-21 Completed [facility] (varivax)(chicken 00:00:00 [place] [facility] HEPATITIS A 2005-03-04 Completed [facility] 00:00:00 [facility] HEPATITIS A 2005-03-04 Completed [facility] 00:00:00 [facility] HEPATITIS A 2005-03-04 Completed [facility] 00:00:00 [facility] HEPATITIS A 2005-03-04 Completed [facility] 00:00:00 [facility] HEPATITIS A 2005-03-04 Completed [facility] 00:00:00 [facility] HEPATITIS A 2005-03-04 Completed [facility] 00:00:00 [facility] HEPATITIS A 2005-03-04 Completed [facility] 00:00:00 [facility] HEPATITIS A 2005-03-04 Completed [facility] 00:00:00 [facility] HEPATITIS A 2005-03-04 Completed [facility] 00:00:00 [facility] HEPATITIS A 2005-03-04 Completed [facility] 00:00:00 [facility] HEPATITIS A 2005-03-04 Completed [facility] 00:00:00 [facility] HEPATITIS A 2005-03-04 Completed [facility] 00:00:00 [facility] HEPATITIS A 2005-03-04 Completed [facility] 00:00:00 [facility] HEPATITIS A 2005-03-04 Completed [facility] 00:00:00 [facility] HEPATITIS A 2005-03-04 Completed [facility] 00:00:00 [facility] HEPATITIS A 2005-03-04 Completed [facility] 00:00:00 [facility] HEPATITIS A 2005-03-04 Completed [facility] 00:00:00 [facility] HEPATITIS A 2005-03-04 Completed [facility] 00:00:00 [facility] HEPATITIS A 2005-03-04 Completed [facility] 00:00:00 [facility] HEPATITIS A 2005-03-04 Completed [facility] 00:00:00 [facility] HEPATITIS A 2005-03-04 Completed [facility] 00:00:00 [facility] HEPATITIS A 2005-03-04 Completed [facility] 00:00:00 [facility] HEPATITIS A 2005-03-04 Completed [facility] 00:00:00 [facility] HEPATITIS A 2005-03-04 Completed [facility] 00:00:00 [facility] HEPATITIS A 2005-03-04 Completed [facility] 00:00:00 [facility] HEPATITIS A 2005-03-04 Completed [facility] 00:00:00 [facility] HEPATITIS A 2005-03-04 Completed [facility] 00:00:00 [facility] HEPATITIS A 2005-03-04 Completed [facility] 00:00:00 [facility] HEPATITIS A 2005-03-04 Completed [facility] 00:00:00 [facility] HEPATITIS A 2005-03-04 Completed [facility] 00:00:00 [facility] HEPATITIS A 2005-03-04 Completed [facility] 00:00:00 [facility] HEPATITIS A 2005-03-04 Completed [facility] 00:00:00 [facility] HEPATITIS A 2005-03-04 Completed [facility] 00:00:00 [facility] HEPATITIS A 2005-03-04 Completed [facility] 00:00:00 [facility] HEPATITIS A 2005-03-04 Completed [facility] 00:00:00 [facility] HEPATITIS A 2005-03-04 Completed [facility] 00:00:00 [facility] HEPATITIS A 2005-03-04 Completed [facility] 00:00:00 [facility] HEPATITIS A 2005-03-04 Completed [facility] 00:00:00 [facility] HEPATITIS A 2005-03-04 Completed [facility] 00:00:00 [facility] HEPATITIS A 2005-03-04 Completed [facility] 00:00:00 [facility] HEPATITIS A 2005-03-04 Completed [facility] 00:00:00 [facility] HEPATITIS A 2005-03-04 Completed [facility] 00:00:00 [facility] HEPATITIS A 2005-03-04 Completed [facility] 00:00:00 [facility] HEPATITIS A 2005-03-04 Completed [facility] 00:00:00 [facility] HEPATITIS A 2005-03-04 Completed [facility] 00:00:00 [facility] HEPATITIS A 2005-03-04 Completed [facility] 00:00:00 [facility] HEPATITIS A 2005-03-04 Completed [facility] 00:00:00 [facility] HEPATITIS A 2005-03-04 Completed [facility] 00:00:00 [facility] HEPATITIS A 2005-03-04 Completed [facility] 00:00:00 [facility] HEPATITIS A 2005-03-04 Completed [facility] 00:00:00 [facility] DTAP 2002-05-29 Completed [facility] 00:00:00 [facility] HIB 4 Dose Schedule 2002-05-29 Completed Unive rsity of 00:00:00 [facility] Pneumococcal 7 2002-05-29 Completed [facility] of Conjugate, PCV7 00:00:00 [place] [facility] (Prevnar7) [facility] DTAP 2002-05-29 Completed [facility] 00:00:00 [facility] HIB 4 Dose Schedule 2002-05-29 Completed Unive rsity of 00:00:00 [facility] Pneumococcal 7 2002-05-29 Completed [facility] Conjugate, PCV7 00:00:00 [place] [facility] (Prevnar7) [facility] Pneumococcal 7 2002-05-29 Completed [facility] Conjugate, PCV7 00:00:00 [place] [facility] (Prevnar7) [facility] DTAP 2002-05-29 Completed [facility] 00:00:00 [facility] HIB 4 Dose Schedule 2002-05-29 Completed Unive rsity of 00:00:00 [facility] Pneumococcal 7 2002-05-29 Completed [facility] Conjugate, PCV7 00:00:00 [place] [facility] (Prevnar7) [facility] DTAP 2002-05-29 Completed [facility] 00:00:00 [facility] HIB 4 Dose Schedule 2002-05-29 Completed Unive rsity of 00:00:00 [facility] Pneumococcal 7 2002-05-29 Completed [facility] Conjugate, PCV7 00:00:00 [place] [facility] (Prevnar7) [facility] DTAP 2002-05-29 Completed [facility] 00:00:00 [facility] HIB 4 Dose Schedule 2002-05-29 Completed Unive rsity of 00:00:00 [facility] Pneumococcal 7 2002-05-29 Completed [facility] Conjugate, PCV7 00:00:00 [place] [facility] (Prevnar7) [facility] DTAP 2002-05-29 Completed [facility] 00:00:00 [facility] HIB 4 Dose Schedule 2002-05-29 Completed Unive rsity of 00:00:00 [facility] Pneumococcal 7 2002-05-29 Completed [facility] Conjugate, PCV7 00:00:00 [place] [facility] (Prevnar7) [facility] DTAP 2002-05-29 Completed [facility] 00:00:00 [facility] HIB 4 Dose Schedule 2002-05-29 Completed Unive rsity of 00:00:00 [facility] DTAP 2002-05-29 Completed [facility] 00:00:00 [facility] Pneumococcal 7 2002-05-29 Completed [facility] Conjugate, PCV7 00:00:00 [place] [facility] (Prevnar7) [facility] DTAP 2002-05-29 Completed [facility] 00:00:00 [facility] HIB 4 Dose Schedule 2002-05-29 Completed Unive rsity of 00:00:00 [facility] Pneumococcal 7 2002-05-29 Completed [facility] Conjugate, PCV7 00:00:00 [place] [facility] (Prevnar7) [facility] HIB 4 Dose Schedule 2002-05-29 Completed Unive rsity of 00:00:00 [facility] DTAP 2002-05-29 Completed [facility] 00:00:00 [facility] HIB 4 Dose Schedule 2002-05-29 Completed Unive rsity of 00:00:00 [facility] Pneumococcal 7 2002-05-29 Completed [facility] Conjugate, PCV7 00:00:00 [place] [facility] (Prevnar7) [facility] DTAP 2002-05-29 Completed [facility] 00:00:00 [facility] HIB 4 Dose Schedule 2002-05-29 Completed Unive rsity of 00:00:00 [facility] Pneumococcal 7 2002-05-29 Completed [facility] Conjugate, PCV7 00:00:00 [place] [facility] (Prevnar7) [facility] DTAP 2002-05-29 Completed [facility] 00:00:00 [facility] HIB 4 Dose Schedule 2002-05-29 Completed Unive rsity of 00:00:00 [facility] Pneumococcal 7 2002-05-29 Completed [facility] Conjugate, PCV7 00:00:00 [place] [facility] (Prevnar7) [facility] DTAP 2002-05-29 Completed [facility] 00:00:00 [facility] HIB 4 Dose Schedule 2002-05-29 Completed Unive rsity of 00:00:00 [facility] Pneumococcal 7 2002-05-29 Completed [facility] of Conjugate, PCV7 00:00:00 [facility] DTAP 2002-05-29 Completed [facility] of 00:00:00 [facility] Pneumococcal 7 2002-05-29 Completed [facility] Conjugate, PCV7 00:00:00 [place] [facility] ([facility] HIB 4 Dose Schedule 2002-05-29 Completed [facility]ive [facility] of 00:00:00 [facility] Pneumococcal 7 2002-05-29 Completed [facility] Conjugate, PCV7 00:00:00 [facility] ([facility]ar[facility] DTAP 2002-05-29 Completed [facility] 00:00:00 [facility] HIB 4 Dose Schedule 2002-05-29 Completed [facility]ive [facility] 00:00:00 [facility] Pneumococcal 7 2002-05-29 Completed [facility] Conjugate, PCV7 00:00:00 [facility] ([facility]ar7[facility] DTAP 2002-05-29 Completed [facility] 00:00:00 [facility] HIB 4 Dose Schedule 2002-05-29 Completed [facility]ive [facility] 00:00:00 [facility] Pneumococcal 7 2002-05-29 Completed [facility] Conjugate, PCV7 00:00:00 [facility] ([facility]ar[facility] DTAP 2002-05-29 Completed [facility] 00:00:00 [facility] HIB 4 Dose Schedule 2002-05-29 Completed [facility]ive [facility] of 00:00:00 [facility] DTAP 2002-05-29 Completed [facility] 00:00:00 [facility] Pneumococcal 7 2002-05-29 Completed [facility] Conjugate, PCV7 00:00:00 [facility] (Pre[facility]ar[facility] DTAP 2002-05-29 Completed [facility] 00:00:00 [facility] HIB 4 Dose Schedule 2002-05-29 Completed [facility] 00:00:00 [facility] HIB 4 Dose Schedule 2002-05-29 Completed [facility]ive [facility] 00:00:00 [facility] Pneumococcal 7 2002-05-29 Completed [facility] Conjugate, PCV7 00:00:00 [facility] ([facility]ar[facility] DTAP 2002-05-29 Completed [facility] 00:00:00 [facility] HIB 4 Dose Schedule 2002-05-29 Completed [facility]ive [facility] of 00:00:00 [facility] Pneumococcal 7 2002-05-29 Completed [facility] Conjugate, PCV7 00:00:00 [facility]ar[facility] DTAP 2002-05-29 Completed [facility] 00:00:00 [facility] HIB 4 Dose Schedule 2002-05-29 Completed [facility]ive [facility] 00:00:00 [facility] Pneumococcal 7 2002-05-29 Completed [facility] Conjugate, PCV7 00:00:00 [facility] ([facility]ar[facility] DTAP 2002-05-29 Completed [facility] 00:00:00 [facility] HIB 4 Dose Schedule 2002-05-29 Completed [facility] 00:00:00 [facility] Pneumococcal 7 2002-05-29 Completed [facility] Conjugate, PCV7 00:00:00 [facility] ([facility]ar[facility] DTAP 2002-05-29 Completed [facility] 00:00:00 [facility] HIB 4 Dose Schedule 2002-05-29 Completed [facility]ive [facility] 00:00:00 [facility] Pneumococcal 7 2002-05-29 Completed [facility] Conjugate, PCV7 00:00:00 [facility] Pneumococcal 7 2002-05-29 Completed [facility] Conjugate, PCV7 00:00:00 [facility] ([facility]ar[facility] DTAP 2002-05-29 Completed [facility] 00:00:00 [facility] HIB 4 Dose Schedule 2002-05-29 Completed [facility] 00:00:00 [facility] Pneumococcal 7 2002-05-29 Completed [facility] Conjugate, PCV7 00:00:00 [facility] (Pre[facility]ar7[facility] DTAP 2002-05-29 Completed [facility] 00:00:00 [facility] HIB 4 Dose Schedule 2002-05-29 Completed [facility]ive [facility] 00:00:00 [facility] Pneumococcal 7 2002-05-29 Completed [facility] Conjugate, PCV7 00:00:00 [facility] (Pre[facility]ar[facility] DTAP 2002-05-29 Completed [facility] 00:00:00 [facility] HIB 4 Dose Schedule 2002-05-29 Completed [facility]ive [facility] of 00:00:00 [facility] Pneumococcal 7 2002-05-29 Completed [facility] Conjugate, PCV7 00:00:00 [facility] (Prevnar7[facility] DTAP 2002-05-29 Completed [facility] 00:00:00 [facility] HIB 4 Dose Schedule 2002-05-29 Completed [facility]ive [facility] 00:00:00 [facility] DTAP 2002-05-29 Completed [facility] 00:00:00 [facility] Pneumococcal 7 2002-05-29 Completed [facility] Conjugate, PCV7 00:00:00 [facility] (Prevnar[facility] DTAP 2002-05-29 Completed [facility] 00:00:00 [facility] HIB 4 Dose Schedule 2002-05-29 Completed [facility]ive [facility] of 00:00:00 [facility] HIB 4 Dose Schedule 2002-05-29 Completed [facility]ive [facility] 00:00:00 [facility] Pneumococcal 7 2002-05-29 Completed [facility] Conjugate, PCV7 00:00:00 [place] [facility] Pneumococcal 7 2002-05-29 Completed [facility] Conjugate, PCV7 00:00:00 [facility] (Pre[facility]ar[facility] DTAP 2002-05-29 Completed [facility] 00:00:00 [facility] HIB 4 Dose Schedule 2002-05-29 Completed [facility]ive [facility] of 00:00:00 [facility] Pneumococcal 7 2002-05-29 Completed [facility] Conjugate, PCV7 00:00:00 [facility] ([facility]vnar[facility] DTAP 2002-05-29 Completed [facility] 00:00:00 [facility] HIB 4 Dose Schedule 2002-05-29 Completed [facility] 00:00:00 [facility] Pneumococcal 7 2002-05-29 Completed [facility] Conjugate, PCV7 00:00:00 [facility] (Prevnar[facility] DTAP 2002-05-29 Completed [facility] 00:00:00 [facility] HIB 4 Dose Schedule 2002-05-29 Completed [facility]ive [facility] of 00:00:00 [facility] Pneumococcal 7 2002-05-29 Completed [facility] Conjugate, PCV7 00:00:00 [facility] (Prevnar[facility] DTAP 2002-05-29 Completed [facility] 00:00:00 [facility] HIB 4 Dose Schedule 2002-05-29 Completed [facility]ive [facility] of 00:00:00 [facility] Pneumococcal 7 2002-05-29 Completed [facility] Conjugate, PCV7 00:00:00 [facility] (Prevnar[facility] DTAP 2002-05-29 Completed [facility] 00:00:00 [facility] HIB 4 Dose Schedule 2002-05-29 Completed [facility]ive [facility] of 00:00:00 [facility] Pneumococcal 7 2002-05-29 Completed [facility] Conjugate, PCV7 00:00:00 [facility] ([facility]vnar[facility] DTAP 2002-05-29 Completed [facility] 00:00:00 [facility] HIB 4 Dose Schedule 2002-05-29 Completed [facility] of 00:00:00 [facility] Pneumococcal 7 2002-05-29 Completed [facility] Conjugate, PCV7 00:00:00 [facility] (Pre[facility]ar[facility] DTAP 2002-05-29 Completed [facility] 00:00:00 [facility] HIB 4 Dose Schedule 2002-05-29 Completed [facility]ive [facility] of 00:00:00 [facility] Pneumococcal 7 2002-05-29 Completed [facility] Conjugate, PCV7 00:00:00 [facility] (Prevnar[facility] DTAP 2002-05-29 Completed [facility] 00:00:00 [facility] HIB 4 Dose Schedule 2002-05-29 Completed [facility] of 00:00:00 [facility] Pneumococcal 7 2002-05-29 Completed [facility] Conjugate, PCV7 00:00:00 [facility] (Prevnar[facility] DTAP 2002-05-29 Completed [facility] 00:00:00 [facility] HIB 4 Dose Schedule 2002-05-29 Completed [facility] 00:00:00 [facility] Pneumococcal 7 2002-05-29 Completed [facility] Conjugate, PCV7 00:00:00 [facility] (Prevnar[facility] DTAP 2002-05-29 Completed [facility] 00:00:00 [facility] HIB 4 Dose Schedule 2002-05-29 Completed [facility]ive [facility] of 00:00:00 [facility] Pneumococcal 7 2002-05-29 Completed [facility] Conjugate, PCV7 00:00:00 [facility] (Prevnar[facility] DTAP 2002-05-29 Completed [facility] 00:00:00 [facility] HIB 4 Dose Schedule 2002-05-29 Completed [facility]ive [facility] of 00:00:00 [facility] Pneumococcal 7 2002-05-29 Completed [facility] Conjugate, PCV7 00:00:00 [facility]ar[facility] DTAP 2002-05-29 Completed [facility] 00:00:00 [facility] HIB 4 Dose Schedule 2002-05-29 Completed [facility]ive [facility] of 00:00:00 [facility] Pneumococcal 7 2002-05-29 Completed [facility] Conjugate, PCV7 00:00:00 [facility] (Prevnar[facility] DTAP 2002-05-29 Completed [facility] 00:00:00 [facility] HIB 4 Dose Schedule 2002-05-29 Completed [facility]ive [facility] of 00:00:00 [facility] Pneumococcal 7 2002-05-29 Completed [facility] Conjugate, PCV7 00:00:00 [facility] (Pre[facility]ar[facility] DTAP 2002-05-29 Completed [facility] 00:00:00 [facility] HIB 4 Dose Schedule 2002-05-29 Completed [facility]ive [facility] of 00:00:00 [facility] Pneumococcal 7 2002-05-29 Completed [facility] Conjugate, PCV7 00:00:00 [facility] (Prevnar[facility] DTAP 2002-05-29 Completed [facility] 00:00:00 [facility] HIB 4 Dose Schedule 2002-05-29 Completed [facility] of 00:00:00 [facility] Pneumococcal 7 2002-05-29 Completed [facility] Conjugate, PCV7 00:00:00 [facility] (Prevnar[facility] DTAP 2002-05-29 Completed [facility] 00:00:00 [facility] HIB 4 Dose Schedule 2002-05-29 Completed [facility]ive [facility] of 00:00:00 [facility] Pneumococcal 7 2002-05-29 Completed [facility] Conjugate, PCV7 00:00:00 [facility] (Prevnar7[facility] DTAP 2002-05-29 Completed [facility] 00:00:00 [facility] DTAP 2002-05-29 Completed [facility] 00:00:00 [facility] HIB 4 Dose Schedule 2002-05-29 Completed [facility]ive [facility] 00:00:00 [facility] Pneumococcal 7 2002-05-29 Completed [facility] Conjugate, PCV7 00:00:00 [facility] (Prevnar7[facility] DTAP 2002-05-29 Completed [facility] 00:00:00 [facility] HIB 4 Dose Schedule 2002-05-29 Completed [facility]ive [facility] of 00:00:00 [facility] HIB 4 Dose Schedule 2002-05-29 Completed [facility] 00:00:00 [facility] Pneumococcal 7 2002-05-29 Completed [facility] Conjugate, PCV7 00:00:00 [facility] (Prevnar7[facility] DTAP 2002-05-29 Completed [facility] 00:00:00 [facility] HIB 4 Dose Schedule 2002-05-29 Completed [facility] 00:00:00 [facility] Pneumococcal 7 2002-05-29 Completed [facility] Conjugate, PCV7 00:00:00 [facility] (Prevnar7[facility] DTAP 2002-05-29 Completed [facility] 00:00:00 [facility] HIB 4 Dose Schedule 2002-05-29 Completed [facility] 00:00:00 [facility] Pneumococcal 7 2002-05-29 Completed [facility] Conjugate, PCV7 00:00:00 [facility] (Prevnar7[facility] DTAP 2002-01-19 Completed [facility] 00:00:00 [facility] HIB 4 Dose Schedule 2002-01-19 Completed [facility] 00:00:00 [facility] MMR 2002-01-19 Completed [facility] 00:00:00 [facility] Polio (IPV/OPV) 2002-01-19 Completed [facility] y [facility] 00:00:00 [facility] Polio (IPV/OPV) 2002-01-19 Completed [facility] 00:00:00 [facility] DTAP 2002-01-19 Completed [facility] 00:00:00 [facility] HIB 4 Dose Schedule 2002-01-19 Completed [facility] 00:00:00 [facility] MMR 2002-01-19 Completed [facility] 00:00:00 [facility] Polio (IPV/OPV) 2002-01-19 Completed [facility] 00:00:00 [facility] DTAP 2002-01-19 Completed [facility] 00:00:00 [facility] HIB 4 Dose Schedule 2002-01-19 Completed [facility]ive [facility] 00:00:00 [facility] MMR 2002-01-19 Completed [facility] 00:00:00 [facility] Polio (IPV/OPV) 2002-01-19 Completed [facility] 00:00:00 [facility] DTAP 2002-01-19 Completed [facility] 00:00:00 [facility] HIB 4 Dose Schedule 2002-01-19 Completed [facility] 00:00:00 [facility] MMR 2002-01-19 Completed [facility] 00:00:00 [facility] Polio (IPV/OPV) 2002-01-19 Completed [facility] 00:00:00 [facility] DTAP 2002-01-19 Completed [facility] 00:00:00 [facility] HIB 4 Dose Schedule 2002-01-19 Completed [facility] 00:00:00 [facility] MMR 2002-01-19 Completed [facility] 00:00:00 [facility] Polio (IPV/OPV) 2002-01-19 Completed [facility] 00:00:00 [facility] DTAP 2002-01-19 Completed [facility] 00:00:00 [facility] HIB 4 Dose Schedule 2002-01-19 Completed [facility] 00:00:00 [facility] MMR 2002-01-19 Completed [facility] 00:00:00 [facility] Polio (IPV/OPV) 2002-01-19 Completed [facility] 00:00:00 [facility] DTAP 2002-01-19 Completed [facility] 00:00:00 [facility] HIB 4 Dose Schedule 2002-01-19 Completed [facility]ive [facility] 00:00:00 [facility] DTAP 2002-01-19 Completed [facility] 00:00:00 [facility] MMR 2002-01-19 Completed [facility] 00:00:00 [facility] Polio (IPV/OPV) 2002-01-19 Completed [facility] 00:00:00 [facility] DTAP 2002-01-19 Completed [facility] 00:00:00 [facility] HIB 4 Dose Schedule 2002-01-19 Completed [facility] 00:00:00 [facility] MMR 2002-01-19 Completed [facility] 00:00:00 [facility] Polio (IPV/OPV) 2002-01-19 Completed [facility] 00:00:00 [facility] HIB 4 Dose Schedule 2002-01-19 Completed [facility]ive [facility] of 00:00:00 [facility] DTAP 2002-01-19 Completed [facility] 00:00:00 [facility] HIB 4 Dose Schedule 2002-01-19 Completed [facility]ive [facility] 00:00:00 [facility] MMR 2002-01-19 Completed [facility] 00:00:00 [facility] Polio (IPV/OPV) 2002-01-19 Completed Univers[facility] y [facility] 00:00:00 [facility] DTAP 2002-01-19 Completed [facility] 00:00:00 [facility] HIB 4 Dose Schedule 2002-01-19 Completed [facility] 00:00:00 [facility] MMR 2002-01-19 Completed [facility] 00:00:00 [facility] Polio (IPV/OPV) 2002-01-19 Completed [facility] 00:00:00 [facility] DTAP 2002-01-19 Completed [facility] 00:00:00 [facility] MMR 2002-01-19 Completed [facility] 00:00:00 [facility] HIB 4 Dose Schedule 2002-01-19 Completed [facility]ive [facility] 00:00:00 [facility] MMR 2002-01-19 Completed [facility] 00:00:00 [facility] Polio (IPV/OPV) 2002-01-19 Completed [facility] 00:00:00 [facility] DTAP 2002-01-19 Completed [facility] 00:00:00 [facility] Polio (IPV/OPV) 2002-01-19 Completed [facility] 00:00:00 [facility] HIB 4 Dose Schedule 2002-01-19 Completed [facility] 00:00:00 [facility] MMR 2002-01-19 Completed [facility] 00:00:00 [facility] Polio (IPV/OPV) 2002-01-19 Completed [facility] y [facility] 00:00:00 [facility] DTAP 2002-01-19 Completed [facility] 00:00:00 [facility] HIB 4 Dose Schedule 2002-01-19 Completed [facility] 00:00:00 [facility] MMR 2002-01-19 Completed [facility] 00:00:00 [facility] Polio (IPV/OPV) 2002-01-19 Completed [facility] 00:00:00 [facility] DTAP 2002-01-19 Completed [facility] 00:00:00 [facility] HIB 4 Dose Schedule 2002-01-19 Completed [facility] 00:00:00 [facility] MMR 2002-01-19 Completed [facility] 00:00:00 [facility] Polio (IPV/OPV) 2002-01-19 Completed [facility] 00:00:00 [facility] DTAP 2002-01-19 Completed [facility] 00:00:00 [facility] HIB 4 Dose Schedule 2002-01-19 Completed [facility] 00:00:00 [facility] MMR 2002-01-19 Completed [facility] 00:00:00 [facility] Polio (IPV/OPV) 2002-01-19 Completed [facility] 00:00:00 [facility] DTAP 2002-01-19 Completed [facility] 00:00:00 [facility] DTAP 2002-01-19 Completed [facility] 00:00:00 [facility] HIB 4 Dose Schedule 2002-01-19 Completed [facility] 00:00:00 [facility] MMR 2002-01-19 Completed [facility] 00:00:00 [facility] Polio (IPV/OPV) 2002-01-19 Completed [facility] 00:00:00 [facility] DTAP 2002-01-19 Completed [facility] 00:00:00 [facility] HIB 4 Dose Schedule 2002-01-19 Completed [facility] 00:00:00 [facility] HIB 4 Dose Schedule 2002-01-19 Completed [facility] 00:00:00 [facility] MMR 2002-01-19 Completed [facility] 00:00:00 [facility] Polio (IPV/OPV) 2002-01-19 Completed [facility] 00:00:00 [facility] DTAP 2002-01-19 Completed [facility] 00:00:00 [facility] HIB 4 Dose Schedule 2002-01-19 Completed [facility] 00:00:00 [facility] MMR 2002-01-19 Completed [facility] 00:00:00 [facility] Polio (IPV/OPV) 2002-01-19 Completed [facility] 00:00:00 [facility] DTAP 2002-01-19 Completed [facility] 00:00:00 [facility] HIB 4 Dose Schedule 2002-01-19 Completed [facility] 00:00:00 [facility] MMR 2002-01-19 Completed [facility] 00:00:00 [facility] Polio (IPV/OPV) 2002-01-19 Completed [facility] 00:00:00 [facility] MMR 2002-01-19 Completed [facility] 00:00:00 [facility] DTAP 2002-01-19 Completed [facility] 00:00:00 [facility] HIB 4 Dose Schedule 2002-01-19 Completed [facility] 00:00:00 [facility] MMR 2002-01-19 Completed [facility] 00:00:00 [facility] Polio (IPV/OPV) 2002-01-19 Completed [facility] 00:00:00 [facility] Polio (IPV/OPV) 2002-01-19 Completed [facility] 00:00:00 [facility] DTAP 2002-01-19 Completed [facility] 00:00:00 [facility] HIB 4 Dose Schedule 2002-01-19 Completed [facility] 00:00:00 [facility] MMR 2002-01-19 Completed [facility] 00:00:00 [facility] Polio (IPV/OPV) 2002-01-19 Completed [facility] 00:00:00 [facility] DTAP 2002-01-19 Completed [facility] 00:00:00 [facility] HIB 4 Dose Schedule 2002-01-19 Completed [facility] 00:00:00 [facility] MMR 2002-01-19 Completed [facility] 00:00:00 [facility] Polio (IPV/OPV) 2002-01-19 Completed [facility] 00:00:00 [facility] DTAP 2002-01-19 Completed [facility] 00:00:00 [facility] HIB 4 Dose Schedule 2002-01-19 Completed [facility] 00:00:00 [facility] MMR 2002-01-19 Completed [facility] 00:00:00 [facility] Polio (IPV/OPV) 2002-01-19 Completed [facility] 00:00:00 [facility] DTAP 2002-01-19 Completed [facility] 00:00:00 [facility] HIB 4 Dose Schedule 2002-01-19 Completed [facility] 00:00:00 [facility] MMR 2002-01-19 Completed [facility] 00:00:00 [facility] Polio (IPV/OPV) 2002-01-19 Completed [facility] 00:00:00 [facility] DTAP 2002-01-19 Completed [facility] 00:00:00 [facility] DTAP 2002-01-19 Completed [facility] 00:00:00 [facility] HIB 4 Dose Schedule 2002-01-19 Completed [facility] 00:00:00 [facility] MMR 2002-01-19 Completed [facility] 00:00:00 [facility] Polio (IPV/OPV) 2002-01-19 Completed [facility] 00:00:00 [facility] DTAP 2002-01-19 Completed [facility] 00:00:00 [facility] HIB 4 Dose Schedule 2002-01-19 Completed [facility] of 00:00:00 [facility] HIB 4 Dose Schedule 2002-01-19 Completed [facility] 00:00:00 [facility] MMR 2002-01-19 Completed [facility] 00:00:00 [facility] Polio (IPV/OPV) 2002-01-19 Completed [facility] 00:00:00 [facility] MMR 2002-01-19 Completed [facility] 00:00:00 [facility] Polio (IPV/OPV) 2002-01-19 Completed [facility] 00:00:00 [facility] DTAP 2002-01-19 Completed [facility] 00:00:00 [facility] HIB 4 Dose Schedule 2002-01-19 Completed [facility] 00:00:00 [facility] MMR 2002-01-19 Completed [facility] 00:00:00 [facility] Polio (IPV/OPV) 2002-01-19 Completed [facility] 00:00:00 [facility] DTAP 2002-01-19 Completed [facility] 00:00:00 [facility] HIB 4 Dose Schedule 2002-01-19 Completed [facility] 00:00:00 [facility] MMR 2002-01-19 Completed [facility] 00:00:00 [facility] Polio (IPV/OPV) 2002-01-19 Completed [facility] 00:00:00 [facility] DTAP 2002-01-19 Completed [facility] 00:00:00 [facility] HIB 4 Dose Schedule 2002-01-19 Completed [facility] 00:00:00 [facility] MMR 2002-01-19 Completed [facility] 00:00:00 [facility] Polio (IPV/OPV) 2002-01-19 Completed [facility] 00:00:00 [facility] DTAP 2002-01-19 Completed [facility] 00:00:00 [facility] HIB 4 Dose Schedule 2002-01-19 Completed [facility] 00:00:00 [facility] MMR 2002-01-19 Completed [facility] 00:00:00 [facility] Polio (IPV/OPV) 2002-01-19 Completed [facility] 00:00:00 [facility] DTAP 2002-01-19 Completed [facility] 00:00:00 [facility] HIB 4 Dose Schedule 2002-01-19 Completed [facility] 00:00:00 [facility] MMR 2002-01-19 Completed [facility] 00:00:00 [facility] Polio (IPV/OPV) 2002-01-19 Completed [facility] 00:00:00 [facility] DTAP 2002-01-19 Completed [facility] 00:00:00 [facility] HIB 4 Dose Schedule 2002-01-19 Completed [facility] 00:00:00 [facility] MMR 2002-01-19 Completed [facility] 00:00:00 [facility] Polio (IPV/OPV) 2002-01-19 Completed [facility] 00:00:00 [facility] DTAP 2002-01-19 Completed [facility] 00:00:00 [facility] HIB 4 Dose Schedule 2002-01-19 Completed [facility] 00:00:00 [facility] MMR 2002-01-19 Completed [facility] 00:00:00 [facility] Polio (IPV/OPV) 2002-01-19 Completed [facility] 00:00:00 [facility] DTAP 2002-01-19 Completed [facility] 00:00:00 [facility] HIB 4 Dose Schedule 2002-01-19 Completed [facility] 00:00:00 [facility] MMR 2002-01-19 Completed [facility] 00:00:00 [facility] Polio (IPV/OPV) 2002-01-19 Completed [facility] 00:00:00 [facility] DTAP 2002-01-19 Completed [facility] 00:00:00 [place] [facility] 4 Dose Schedule 2002-01-19 Completed [facility] 00:[facility]00 [facility] MMR 2002-01-19 Completed [facility]:00 [facility] Polio (IPV/OPV) 2002-01-19 Completed [facility]00 [facility] DTAP 2002-01-19 Completed [facility] 00:00:00 [facility] HIB 4 Dose Schedule 2002-01-19 Completed [facility] 00:00:00 [facility] MMR 2002-01-19 Completed [facility] 00:00:00 [facility] Polio (IPV/OPV) 2002-01-19 Completed [facility] 00:00:00 [facility] DTAP 2002-01-19 Completed [facility] 00:00:00 [facility] HIB 4 Dose Schedule 2002-01-19 Completed [facility] 00:00:00 [facility] MMR 2002-01-19 Completed [facility] 00:00:00 [facility] Polio (IPV/OPV) 2002-01-19 Completed [facility] 00:00:00 [facility] DTAP 2002-01-19 Completed [facility] 00[facility]00:00 [facility] HIB 4 Dose Schedule 2002-01-19 Completed [facility] 00:00:00 [facility] MMR 2002-01-19 Completed [facility] 00:00:00 [facility] Polio (IPV/OPV) 2002-01-19 Completed [facility] 00:00:00 [facility] DTAP 2002-01-19 Completed [facility] 00:00:00 [facility] HIB 4 Dose Schedule 2002-01-19 Completed [facility] 00:00:00 [facility] MMR 2002-01-19 Completed [facility] 00:00:00 [facility] Polio (IPV/OPV) 2002-01-19 Completed [facility] 00:00:00 [facility] DTAP 2002-01-19 Completed [facility] 00:00:00 [facility] HIB 4 Dose Schedule 2002-01-19 Completed [facility] 00:00:00 [facility] MMR 2002-01-19 Completed [facility] 00:00:00 [facility] Polio (IPV/OPV) 2002-01-19 Completed [facility] 00:00:00 [facility] DTAP 2002-01-19 Completed [facility] 00:00:00 [facility] HIB 4 Dose Schedule 2002-01-19 Completed [facility] 00:00:00 [facility] MMR 2002-01-19 Completed [facility] 00:00:00 [facility] Polio (IPV/OPV) 2002-01-19 Completed [facility] 00:00:00 [facility] DTAP 2002-01-19 Completed [facility] 00:00:00 [facility] HIB 4 Dose Schedule 2002-01-19 Completed [facility] 00:00:00 [facility] MMR 2002-01-19 Completed [facility] 00:00:00 [facility] DTAP 2002-01-19 Completed [facility] 00:00:00 [facility] Polio (IPV/OPV) 2002-01-19 Completed [facility] 00:00:00 [facility] DTAP 2002-01-19 Completed [facility] 00:00:00 [facility] HIB 4 Dose Schedule 2002-01-19 Completed [facility] 00:00:00 [facility] MMR 2002-01-19 Completed [facility] 00:00:00 [facility] Polio (IPV/OPV) 2002-01-19 Completed [facility] 00:00:00 [facility] HIB 4 Dose Schedule 2002-01-19 Completed [facility] 00:00:00 [facility] DTAP 2002-01-19 Completed [facility] 00:00:00 [facility] HIB 4 Dose Schedule 2002-01-19 Completed [facility] 00:00:00 [facility] MMR 2002-01-19 Completed [facility] 00:00:00 [facility] Polio (IPV/OPV) 2002-01-19 Completed [facility] 00:00:00 [facility] DTAP 2002-01-19 Completed [facility] 00:00:00 [facility] HIB 4 Dose Schedule 2002-01-19 Completed [facility] 00:00:00 [facility] MMR 2002-01-19 Completed [facility] 00:00:00 [facility] Polio (IPV/OPV) 2002-01-19 Completed [facility] 00:00:00 [facility] DTAP 2002-01-19 Completed [facility] 00:00:00 [facility] HIB 4 Dose Schedule 2002-01-19 Completed [facility] 00:00:00 [facility] MMR 2002-01-19 Completed [facility] 00:00:00 [facility] MMR 2002-01-19 Completed [facility] 00:00:00 [facility] Polio (IPV/OPV) 2002-01-19 Completed [facility] 00:00:00 [facility] DTAP 2001 Completed [facility] 00:00:00 [facility] HIB 4 Dose Schedule 2001 Completed [facility] 00:00:00 [facility] Polio (IPV/OPV) 2001 Completed [facility] 00:00:00 [facility] Hep B, Adol or Pedi 2001 Completed [facility] Dosage 00:00:00 [facility] Polio (IPV/OPV) 2001 Completed [facility] 00:00:00 [facility] DTAP 2001 Completed [facility] 00:00:00 [facility] HIB 4 Dose Schedule 2001 Completed [facility] 00:00:00 [facility] Hep B, Adol or Pedi 2001 Completed [facility] Dosage 00:00:00 [facility] Polio (IPV/OPV) 2001 Completed [facility] 00:00:00 [facility] DTAP 2001 Completed [facility] 00:00:00 [facility] HIB 4 Dose Schedule 2001 Completed [facility] 00:00:00 [facility] Hep B, Adol or Pedi 2001 Completed [facility] Dosage 00:00:00 [facility] Polio (IPV/OPV) 2001 Completed [facility] 00:00:00 [facility] DTAP 2001 Completed [facility] 00:00:00 [facility] HIB 4 Dose Schedule 2001 Completed [facility] 00:00:00 [facility] Hep B, Adol or Pedi 2001 Completed [facility] Dosage 00:00:00 [facility] Polio (IPV/OPV) 2001 Completed [facility] 00:00:00 [facility] DTAP 2001 Completed [facility] 00:00:00 [facility] HIB 4 Dose Schedule 2001 Completed [facility] 00:00:00 [facility] Hep B, Adol or Pedi 2001 Completed [facility] Dosage 00:00:00 [facility] Polio (IPV/OPV) 2001 Completed [facility] 00:00:00 [facility] DTAP 2001 Completed [facility] 00:00:00 [facility] HIB 4 Dose Schedule 2001 Completed [facility] 00:00:00 [facility] Hep B, Adol or Pedi 2001 Completed [facility] Dosage 00:00:00 [facility] Polio (IPV/OPV) 2001 Completed [facility] 00:00:00 [facility] DTAP 2001 Completed [facility] 00:00:00 [facility] DTAP 2001 Completed [facility] 00:00:00 [facility] HIB 4 Dose Schedule 2001 Completed [facility] 00:00:00 [facility] Hep B, Adol or Pedi 2001 Completed [facility] Dosage 00:00:00 [facility] Polio (IPV/OPV) 2001 Completed [facility] 00:00:00 [facility] DTAP 2001 Completed [facility] 00:00:00 [facility] HIB 4 Dose Schedule 2001 Completed [facility] 00:00:00 [facility] Hep B, Adol or Pedi 2001 Completed [facility] Dosage 00:00:00 [facility] HIB 4 Dose Schedule 2001 Completed [facility] 00:00:00 [facility] Polio (IPV/OPV) 2001 Completed [facility] 00:00:00 [facility] DTAP 2001 Completed [facility] 00:00:00 [facility] HIB 4 Dose Schedule 2001 Completed [facility] 00:00:00 [facility] Hep B, Adol or Pedi 2001 Completed [facility] Dosage 00:00:00 [facility] Polio (IPV/OPV) 2001 Completed [facility] 00:00:00 [facility] DTAP 2001 Completed [facility] 00:00:00 [facility] Hep B, Adol or Pedi 2001 Completed [facility] Dosage 00:00:00 [facility] HIB 4 Dose Schedule 2001 Completed [facility] 00:00:00 [facility] Hep B, Adol or Pedi 2001 Completed [facility] Dosage 00:00:00 [facility] Polio (IPV/OPV) 2001 Completed [facility] 00:00:00 [facility] DTAP 2001 Completed [facility] 00:00:00 [facility] HIB 4 Dose Schedule 2001 Completed [facility] 00:00:00 [facility] Hep B, Adol or Pedi 2001 Completed [facility] Dosage 00:00:00 [facility] Polio (IPV/OPV) 2001 Completed [facility] 00:00:00 [facility] Polio (IPV/OPV) 2001 Completed [facility] 00:00:00 [facility] DTAP 2001 Completed [facility] 00:00:00 [facility] HIB 4 Dose Schedule 2001 Completed [facility] 00:00:00 [facility] Hep B, Adol or Pedi 2001 Completed [facility] Dosage 00:00:00 [facility] Polio (IPV/OPV) 2001 Completed [facility] 00:00:00 [facility] DTAP 2001 Completed [facility] 00:00:00 [facility] HIB 4 Dose Schedule 2001 Completed [facility] 00:00:00 [facility] Hep B, Adol or Pedi 2001 Completed [facility] Dosage 00:00:00 [facility] Polio (IPV/OPV) 2001 Completed [facility] 00:00:00 [facility] DTAP 2001 Completed [facility] 00:00:00 [facility] HIB 4 Dose Schedule 2001 Completed [facility] 00:00:00 [facility] Hep B, Adol or Pedi 2001 Completed [facility] Dosage 00:00:00 [facility] Polio (IPV/OPV) 2001 Completed [facility] 00:00:00 [facility] DTAP 2001 Completed [facility] 00:00:00 [facility] HIB 4 Dose Schedule 2001 Completed [facility] 00:00:00 [facility] Hep B, Adol or Pedi 2001 Completed [facility] Dosage 00:00:00 [facility] Polio (IPV/OPV) 2001 Completed [facility] 00:00:00 [facility] DTAP 2001 Completed [facility] 00:00:00 [facility] DTAP 2001 Completed [facility] 00:00:00 [facility] HIB 4 Dose Schedule 2001 Completed [facility] 00:00:00 [facility] Hep B, Adol or Pedi 2001 Completed [facility] Dosage 00:00:00 [facility] Polio (IPV/OPV) 2001 Completed [facility] 00:00:00 [facility] HIB 4 Dose Schedule 2001 Completed [facility] 00:00:00 [facility] DTAP 2001 Completed [facility] 00:00:00 [facility] HIB 4 Dose Schedule 2001 Completed [facility] 00:00:00 [facility] Hep B, Adol or Pedi 2001 Completed [facility] Dosage 00:00:00 [facility] Polio (IPV/OPV) 2001 Completed [facility] 00:00:00 [facility] DTAP 2001 Completed [facility] 00:00:00 [facility] HIB 4 Dose Schedule 2001 Completed [facility] 00:00:00 [facility] Hep B, Adol or Pedi 2001 Completed [facility] Dosage 00:00:00 [facility] Polio (IPV/OPV) 2001 [...] 2001 Completed [facility] Dosage 00:00:00 [facility] Polio (IPV/OPV) 2001 Completed [facility] 00:00:00 [facility] DTAP 2001 Completed [facility] 00:00:00 [facility] HIB 4 Dose Schedule 2001 Completed [facility] 00:00:00 [facility] Hep B, Adol or Pedi 2001 Completed [facility] Dosage 00:00:00 [facility] Polio (IPV/OPV) 2001 Completed [facility] 00:00:00 [facility] Polio (IPV/OPV) 2001 Completed [facility] 00:00:00 [facility] DTAP 2001 Completed [facility] 00:00:00 [facility] HIB 4 Dose Schedule 2001 Completed [facility] 00:00:00 [facility] Hep B, Adol or Pedi 2001 Completed [facility] Dosage 00:00:00 [facility] Polio (IPV/OPV) 2001 Completed [facility] 00:00:00 [facility] DTAP 2001 Completed [facility] 00:00:00 [facility] HIB 4 Dose Schedule 2001 Completed [facility] 00:00:00 [facility] Hep B, Adol or Pedi 2001 Completed [facility] Dosage 00:00:00 [facility] Polio (IPV/OPV) 2001 Completed [facility] 00:00:00 [facility] DTAP 2001 Completed [facility] 00:00:00 [facility] HIB 4 Dose Schedule 2001 Completed [facility] 00:00:00 [facility] Hep B, Adol or Pedi 2001 Completed [facility] Dosage 00:00:00 [facility] Polio (IPV/OPV) 2001 Completed [facility] 00:00:00 [facility] DTAP 2001 Completed [facility] 00:00:00 [facility] HIB 4 Dose Schedule 2001 Completed [facility] 00:00:00 [facility] Hep B, Adol or Pedi 2001 Completed [facility] Dosage 00:00:00 [facility] Polio (IPV/OPV) 2001 Completed [facility] 00:00:00 [facility] DTAP 2001 Completed [facility] 00[facility]00:00 [facility] DTAP 2001 Completed [facility] 00:00:00 [facility] HIB 4 Dose Schedule 2001 Completed [facility] 00:00:00 [facility] Hep B, Adol or Pedi 2001 Completed [facility] Dosage 00:00:00 [facility] Polio (IPV/OPV) 2001 Completed [facility] 00:00:00 [facility] DTAP 2001 Completed [facility] 00:00:00 [facility] HIB 4 Dose Schedule 2001 Completed [facility] 00:00:00 [facility] HIB 4 Dose Schedule 2001 Completed [facility] 00:00:00 [facility] Hep B, Adol or Pedi 2001 Completed [facility] Dosage 00:00:00 [facility] Polio (IPV/OPV) 2001 Completed [facility] 00:00:00 [facility] Hep B, Adol or Pedi 2001 Completed [facility] Dosage 00:00:00 [facility] Polio (IPV/OPV) 2001 Completed [facility] 00:00:00 [facility] DTAP 2001 Completed [facility] 00:00:00 [facility] HIB 4 Dose Schedule 2001 Completed [facility] 00:00:00 [facility] Hep B, Adol or Pedi 2001 Completed [facility] Dosage 00:00:00 [facility] Polio (IPV/OPV) 2001 Completed [facility] 00:00:00 [facility] DTAP 2001 Completed [facility] 00:00:00 [facility] HIB 4 Dose Schedule 2001 Completed [facility] 00:00:00 [facility] Hep B, Adol or Pedi 2001 Completed [facility] Dosage 00:00:00 [facility] Polio (IPV/OPV) 2001 Completed [facility] 00:00:00 [facility] DTAP 2001 Completed [facility] 00:00:00 [facility] HIB 4 Dose Schedule 2001 Completed [facility] 00:00:00 [facility] Hep B, Adol or Pedi 2001 Completed [facility] Dosage 00:00:00 [facility] Polio (IPV/OPV) 2001 Completed [facility] 00:00:00 [facility] DTAP 2001 Completed [facility] 00:00:00 [facility] HIB 4 Dose Schedule 2001 Completed [facility] 00:00:00 [facility] Hep B, Adol or Pedi 2001 Completed [facility] Dosage 00:00:00 [facility] Polio (IPV/OPV) 2001 Completed [facility] 00:00:00 [facility] DTAP 2001 Completed [facility] 00:00:00 [facility] HIB 4 Dose Schedule 2001 Completed [facility] 00:00:00 [facility] Hep B, Adol or Pedi 2001 Completed [facility] Dosage 00:00:00 [facility] Polio (IPV/OPV) 2001 Completed [facility] 00:00:00 [facility] DTAP 2001 Completed [facility] 00:00:00 [facility] HIB 4 Dose Schedule 2001 Completed [facility] 00:00:00 [facility] Hep B, Adol or Pedi 2001 Completed [facility] Dosage 00:00:00 [facility] Polio (IPV/OPV) 2001 Completed [facility] 00:00:00 [facility] DTAP 2001 Completed [facility] 00:00:00 [facility] HIB 4 Dose Schedule 2001 Completed [facility] 00:00:00 [facility] Hep B, Adol or Pedi 2001 Completed [facility] Dosage 00:00:00 [facility] Polio (IPV/OPV) 2001 Completed [facility] 00:00:00 [facility] DTAP 2001 Completed [facility] 00:00:00 [facility] HIB 4 Dose Schedule 2001 Completed [facility] 00:00:00 [facility] Hep B, Adol or Pedi 2001 Completed [facility] Dosage 00:00:00 [facility] Polio (IPV/OPV) 2001 Completed [facility] 00:00:00 [facility] DTAP 2001 Completed [facility] 00:00:00 [facility] HIB 4 Dose Schedule 2001 Completed [facility] 00:00:00 [facility] Hep B, Adol or Pedi 2001 Completed [facility] Dosage 00:00:00 [facility] Polio (IPV/OPV) 2001 Completed [facility] 00:00:00 [facility] DTAP 2001 Completed [facility] 00:00:00 [facility] HIB 4 Dose Schedule 2001 Completed [facility] 00:00:00 [facility] Hep B, Adol or Pedi 2001 Completed [facility] Dosage 00:00:00 [facility] Polio (IPV/OPV) 2001 Completed [facility] 00:00:00 [facility] DTAP 2001 Completed [facility] 00:00:00 [facility] HIB 4 Dose Schedule 2001 Completed [facility] 00:00:00 [facility] Hep B, Adol or Pedi 2001 Completed [facility] Dosage 00:00:00 [facility] Polio (IPV/OPV) 2001 Completed [facility] 00:00:00 [facility] DTAP 2001 Completed [facility] 00:00:00 [facility] HIB 4 Dose Schedule 2001 Completed [facility] 00:00:00 [facility] Hep B, Adol or Pedi 2001 Completed [facility] Dosage 00:00:00 [facility] Polio (IPV/OPV) 2001 Completed [facility] 00:00:00 [facility] DTAP 2001 Completed [facility] 00:00:00 [facility] HIB 4 Dose Schedule 2001 Completed [facility] 00:00:00 [facility] Hep B, Adol or Pedi 2001 Completed [facility] Dosage 00:00:00 [facility] Polio (IPV/OPV) 2001 Completed [facility] 00:00:00 [facility] DTAP 2001 Completed [facility] 00:00:00 [facility] HIB 4 Dose Schedule 2001 Completed [facility] 00:00:00 [facility] Hep B, Adol or Pedi 2001 Completed [facility] Dosage 00:00:00 [facility] Polio (IPV/OPV) 2001 Completed [facility] 00:00:00 [facility] DTAP 2001 Completed [facility] 00:00:00 [facility] HIB 4 Dose Schedule 2001 Completed [facility] 00:00:00 [facility] Hep B, Adol or Pedi 2001 Completed [facility] Dosage 00:00:00 [facility] Polio (IPV/OPV) 2001 Completed [facility] 00:00:00 [facility] DTAP 2001 Completed [facility] 00:00:00 [facility] HIB 4 Dose Schedule 2001 Completed [facility] 00:00:00 [facility] DTAP 2001 Completed [facility] 00:00:00 [facility] Hep B, Adol or Pedi 2001 Completed [facility] Dosage 00:00:00 [facility] Polio (IPV/OPV) 2001 Completed [facility] 00:00:00 [facility] DTAP 2001 Completed [facility] 00:00:00 [facility] HIB 4 Dose Schedule 2001 Completed [facility] 00:00:00 [facility] Hep B, Adol or Pedi 2001 Completed [facility] Dosage 00:00:00 [facility] Polio (IPV/OPV) 2001 Completed [facility] 00:00:00 [facility] HIB 4 Dose Schedule 2001 Completed [facility] 00:00:00 [facility] DTAP 2001 Completed [facility] 00:00:00 [facility] HIB 4 Dose Schedule 2001 Completed [facility] 00:00:00 [facility] Hep B, Adol or Pedi 2001 Completed [facility] Dosage 00:00:00 [facility] Polio (IPV/OPV) 2001 Completed [facility] 00:00:00 [facility] DTAP 2001 Completed [facility] 00:00:00 [facility] HIB 4 Dose Schedule 2001 Completed [facility] 00:00:00 [facility] Hep B, Adol or Pedi 2001 Completed [facility] Dosage 00:00:00 [facility] Hep B, Adol or Pedi 2001 Completed [facility] Dosage 00:00:00 [facility] Polio (IPV/OPV) 2001 Completed [facility] 00:00:00 [facility] DTAP 2001 Completed [facility] 00:00:00 [facility] HIB 4 Dose Schedule 2001 Completed [facility] 00:00:00 [facility] Hep B, Adol or Pedi 2001 Completed [facility] Dosage 00:00:00 [facility] Polio (IPV/OPV) 2001 Completed [facility] 00:00:00 [facility] DTAP 2001 Completed [facility] 00:00:00 [facility] Polio (IPV/OPV) 2001 Completed [facility] 00:00:00 [facility] HIB 4 Dose Schedule 2001 Completed [facility] 00:00:00 [facility] Hep B, Adol or Pedi 2001 Completed [facility] Dosage 00:00:00 [facility] Polio (IPV/OPV) 2001 Completed [facility] 00:00:00 [facility] DTAP 2001 Completed [facility] 00:00:00 [facility] HIB 4 Dose Schedule 2001 Completed [facility] 00:00:00 [facility] Hep B, Adol or Pedi 2001 Completed [facility] Dosage 00:00:00 [facility] Polio (IPV/OPV) 2001 Completed [facility] 00:00:00 [facility] DTAP 2001 Completed [facility] 00:00:00 [facility] HIB 4 Dose Schedule 2001 Completed [facility] 00:00:00 [facility] Hep B, Adol or Pedi 2001 Completed [facility] Dosage 00:00:00 [facility] Polio (IPV/OPV) 2001 Completed [facility] 00:00:00 [facility] DTAP 2001 Completed [facility] 00:00:00 [facility] HIB 4 Dose Schedule 2001 Completed [facility] 00:00:00 [facility] Hep B, Adol or Pedi 2001 Completed [facility] Dosage 00:00:00 [facility] Polio (IPV/OPV) 2001 Completed [facility] 00:00:00 [facility] DTAP 2001 Completed [facility] 00:00:00 [facility] HIB 4 Dose Schedule 2001 Completed [facility] 00:00:00 [facility] Hep B, Adol or Pedi 2001 Completed [facility] Dosage 00:00:00 [facility] Polio (IPV/OPV) 2001 Completed [facility] 00:00:00 [facility] DTAP 2001 Completed [facility] 00:00:00 [facility] HIB 4 Dose Schedule 2001 Completed [facility] 00:00:00 [facility] Hep B, Adol or Pedi 2001 Completed [facility] Dosage 00:00:00 [facility] Polio (IPV/OPV) 2001 Completed [facility] 00:00:00 [facility] DTAP 2001 Completed [facility] 00:00:00 [facility] DTAP 2001 Completed [facility] 00:00:00 [facility] HIB 4 Dose Schedule 2001 Completed [facility] rsity of 00:00:00 [facility] Hep B, Adol or Pedi 2001 Completed Unive rsity of Dosage 00:00:00 [facility] Polio (IPV/OPV) 2001 Completed [facility] 00:00:00 [facility] DTAP 2001 Completed [facility] 00:00:00 [facility] HIB 4 Dose Schedule 2001 Completed [facility]ive rsity of 00:00:00 [facility] HIB 4 Dose Schedule 2001 Completed [facility]ive rsity of 00:00:00 [facility] Hep B, Adol or Pedi 2001 Completed [facility]ive rsity of Dosage 00:00:00 [facility] Polio (IPV/OPV) 2001 Completed [facility] 00:00:00 [facility] DTAP 2001 Completed [facility] 00:00:00 [facility] HIB 4 Dose Schedule 2001 Completed [facility]ive rsity of 00:00:00 [facility] Hep B, Adol or Pedi 2001 Completed Unive rsity of Dosage 00:00:00 [facility] Polio (IPV/OPV) 2001 Completed [facility] 00:00:00 [facility] Hep B, Adol or Pedi 2001 Completed Unive rsity of Dosage 00:00:00 [facility] DTAP 2001 Completed [facility] 00:00:00 [facility] HIB 4 Dose Schedule 2001 Completed [facility]ive rsity of 00:00:00 [facility] Hep B, Adol or Pedi 2001 Completed [facility]ive rsity of Dosage 00:00:00 [facility] Polio (IPV/OPV) 2001 Completed [facility] 00:00:00 [facility] DTAP 2001 Completed [facility] 00:00:00 [facility] HIB 4 Dose Schedule 2001 Completed [facility] rsity of 00:00:00 [facility] Hep B, Adol or Pedi 2001 Completed [facility]ive rsity of Dosage 00:00:00 [facility] Polio (IPV/OPV) 2001 Completed [facility] 00:00:00 [facility] Polio (IPV/OPV) 2001 Completed [facility] 00:00:00 [facility] DTAP 2001 Completed [facility] 00:00:00 [facility] HIB 4 Dose Schedule 2001 Completed [facility]ive rsity of 00:00:00 [facility] Hep B, Adol or Pedi 2001 Completed [facility]ive rsity of Dosage 00:00:00 [facility] Polio (IPV/OPV) 2001 Completed [facility] 00:00:00 [facility] DTAP 2001 Completed [facility] 00:00:00 [facility] HIB 4 Dose Schedule 2001 Completed [facility] rs[facility] of 00:00:00 [facility] Hep B, Adol or Pedi 2001 Completed [facility]ive rsity of Dosage 00:00:00 [facility] Polio (IPV/OPV) 2001 Completed [facility] 00:00:00 [facility] DTAP 2001 Completed [facility] 00:00:00 [facility] HIB 4 Dose Schedule 2001 Completed [facility] 00:00:00 [facility] Hep B, Adol or Pedi 2001 Completed [facility]ive rsity of Dosage 00:00:00 [facility] Polio (IPV/OPV) 2001 Completed [facility] 00:00:00 [facility] DTAP 2001 Completed [facility] 00:00:00 [facility] HIB 4 Dose Schedule 2001 Completed [facility]ive rsity of 00:00:00 [facility] Hep B, Adol or Pedi 2001 Completed [facility]ive rsity of Dosage 00:00:00 [facility] Polio (IPV/OPV) 2001 Completed [facility] 00:00:00 [facility] DTAP 2001 Completed [facility] 00:00:00 [facility] DTAP 2001 Completed [facility] 00:00:00 [facility] HIB 4 Dose Schedule 2001 Completed [facility]ive rsity of 00:00:00 [facility] Hep B, Adol or Pedi 2001 Completed [facility]ive rsity of Dosage 00:00:00 [facility] Polio (IPV/OPV) 2001 Completed [facility] 00:00:00 [facility] HIB 4 Dose Schedule 2001 Completed [facility]ive rsity of 00:00:00 [facility] DTAP 2001 Completed [facility] 00:00:00 [facility] HIB 4 Dose Schedule 2001 Completed [facility] of 00:00:00 [facility] Hep B, Adol or Pedi 2001 Completed [facility]ive rsity of Dosage 00:00:00 [facility] Polio (IPV/OPV) 2001 Completed [facility] 00:00:00 [facility] DTAP 2001 Completed [facility] 00:00:00 [facility] HIB 4 Dose Schedule 2001 Completed [facility] rs[facility] of 00:00:00 [facility] Hep B, Adol or Pedi 2001 Completed [facility]ive rsity of Dosage 00:00:00 [facility] Polio (IPV/OPV) 2001 Completed [facility] 00:00:00 [facility] Hep B, Adol or Pedi 2001 Completed [facility]ive [facility]ity of Dosage 00:00:00 [facility] DTAP 2001 Completed [facility] 00:00:00 [facility] HIB 4 Dose Schedule 2001 Completed [facility] rs[facility] of 00:00:00 [facility] Hep B, Adol or Pedi 2001 Completed [facility]ive rsity of Dosage 00:00:00 [facility] Polio (IPV/OPV) 2001 Completed [facility] 00:00:00 [facility] DTAP 2001 Completed [facility] 00:00:00 [facility] HIB 4 Dose Schedule 2001 Completed [facility] rs[facility] of 00:00:00 [facility] Polio (IPV/OPV) 2001 Completed [facility] 00:00:00 [facility] Hep B, Adol or Pedi 2001 Completed [facility]ive [facility]ity of Dosage 00:00:00 [facility] Polio (IPV/OPV) 2001 Completed [facility] 00:00:00 [facility] DTAP 2001 Completed [facility] 00:00:00 [facility] HIB 4 Dose Schedule 2001 Completed [facility] of 00:00:00 [facility] Hep B, Adol or Pedi 2001 Completed [facility]ive rsity of Dosage 00:00:00 [facility] Polio (IPV/OPV) 2001 Completed [facility] 00:00:00 [facility] DTAP 2001 Completed [facility] 00:00:00 [facility] HIB 4 Dose Schedule 2001 Completed [facility] 00:00:00 [facility] Hep B, Adol or Pedi 2001 Completed [facility]ive [facility]ity of Dosage 00:00:00 [facility] Polio (IPV/OPV) 2001 Completed [facility] 00:00:00 [facility] DTAP 2001 Completed [facility] 00:00:00 [facility] HIB 4 Dose Schedule 2001 Completed [facility] of 00:00:00 [facility] Hep B, Adol or Pedi 2001 Completed [facility]ive [facility]ity of Dosage 00:00:00 [facility] Polio (IPV/OPV) 2001 Completed [facility] 00:00:00 [facility] DTAP 2001 Completed [facility] 00:00:00 [facility] HIB 4 Dose Schedule 2001 Completed [facility] of 00:00:00 [facility] Hep B, Adol or Pedi 2001 Completed [facility]ive [facility]ity of Dosage 00:00:00 [facility] Polio (IPV/OPV) 2001 Completed [facility] 00:00:00 [facility] DTAP 2001 Completed [facility] 00:00:00 [facility] DTAP 2001 Completed [facility] 00:00:00 [facility] HIB 4 Dose Schedule 2001 Completed [facility] of 00:00:00 [facility] Hep B, Adol or Pedi 2001 Completed [facility]ive [facility]ity of Dosage 00:00:00 [facility] Polio (IPV/OPV) 2001 Completed [facility] 00:00:00 [facility] HIB 4 Dose Schedule 2001 Completed [facility]ity of 00:00:00 [facility] DTAP 2001 Completed [facility] 00:00:00 [facility] HIB 4 Dose Schedule 2001 Completed [facility] of 00:00:00 [facility] Hep B, Adol or Pedi 2001 Completed [facility]ive rsity of Dosage 00:00:00 [facility] Polio (IPV/OPV) 2001 Completed [facility] 00:00:00 [facility] Hep B, Adol or Pedi 2001 Completed [facility]ive [facility]ity of Dosage 00:00:00 [facility] Polio (IPV/OPV) 2001 Completed [facility] 00:00:00 [facility] DTAP 2001 Completed [facility] 00:00:00 [facility] HIB 4 Dose Schedule 2001 Completed [facility] of 00:00:00 [facility] Hep B, Adol or Pedi 2001 Completed [facility]ive [facility]ity of Dosage 00:00:00 [facility] Polio (IPV/OPV) 2001 Completed [facility] 00:00:00 [facility] DTAP 2001 Completed [facility] 00:00:00 [facility] HIB 4 Dose Schedule 2001 Completed [facility] of 00:00:00 [facility] Hep B, Adol or Pedi 2001 Completed [facility]ive [facility]ity of Dosage 00:00:00 [facility] Polio (IPV/OPV) 2001 Completed [facility] 00:00:00 [facility] DTAP 2001 Completed [facility] 00:00:00 [facility] HIB 4 Dose Schedule 2001 Completed [facility] 00:00:00 [facility] Hep B, Adol or Pedi 2001 Completed [facility] of Dosage 00:00:00 [facility] Polio (IPV/OPV) 2001 Completed [facility] 00:00:00 [facility] DTAP 2001 Completed [facility] 00:00:00 [facility] HIB 4 Dose Schedule 2001 Completed [facility]ity of 00:00:00 [facility] Hep B, Adol or Pedi 2001 Completed [facility]ive [facility]ity of Dosage 00:00:00 [facility] Polio (IPV/OPV) 2001 Completed [facility] 00:00:00 [facility] DTAP 2001 Completed [facility] 00:00:00 [facility] HIB 4 Dose Schedule 2001 Completed [facility] of 00:00:00 [facility] Hep B, Adol or Pedi 2001 Completed [facility]ive [facility]ity of Dosage 00:00:00 [facility] Polio (IPV/OPV) 2001 Completed [facility] 00:00:00 [facility] DTAP 2001 Completed [facility] 00:00:00 [facility] HIB 4 Dose Schedule 2001 Completed [facility] of 00:00:00 [facility] Hep B, Adol or Pedi 2001 Completed [facility]ive [facility]ity of Dosage 00:00:00 [facility] Polio (IPV/OPV) 2001 Completed [facility] 00:00:00 [facility] DTAP 2001 Completed [facility] 00:00:00 [facility] HIB 4 Dose Schedule 2001 Completed [facility] of 00:00:00 [facility] Hep B, Adol or Pedi 2001 Completed [facility]ity of Dosage 00:00:00 [facility] Polio (IPV/OPV) 2001 Completed [facility] 00:00:00 [facility] DTAP 2001 Completed [facility] 00:00:00 [facility] HIB 4 Dose Schedule 2001 Completed [facility]ity of 00:00:00 [facility] Hep B, Adol or Pedi 2001 Completed [facility]ive [facility]ity of Dosage 00:00:00 [facility] Polio (IPV/OPV) 2001 Completed [facility] 00:00:00 [facility] DTAP 2001 Completed [facility] 00:00:00 [facility] HIB 4 Dose Schedule 2001 Completed [facility] of 00:00:00 [facility] Hep B, Adol or Pedi 2001 Completed [facility]ive [facility]ity of Dosage 00:00:00 [facility] Polio (IPV/OPV) 2001 Completed [facility] 00:00:00 [facility] DTAP 2001 Completed [facility] 00:00:00 [facility] HIB 4 Dose Schedule 2001 Completed [facility] of 00:00:00 [facility] Hep B, Adol or Pedi 2001 Completed [facility]ive [facility]ity of Dosage 00:00:00 [facility] Polio (IPV/OPV) 2001 Completed [facility] 00:00:00 [facility] DTAP 2001 Completed [facility] 00:00:00 [facility] HIB 4 Dose Schedule 2001 Completed [facility] of 00:00:00 [facility] Hep B, Adol or Pedi 2001 Completed [facility]ity of Dosage 00:00:00 [facility] Polio (IPV/OPV) 2001 Completed [facility] 00:00:00 [facility] DTAP 2001 Completed [facility] 00:00:00 [facility] HIB 4 Dose Schedule 2001 Completed [facility]ity of 00:00:00 [facility] Hep B, Adol or Pedi 2001 Completed [facility]ity of Dosage 00:00:00 [facility] Polio (IPV/OPV) 2001 Completed [facility] 00:00:00 [facility] DTAP 2001 Completed [facility] 00:00:00 [facility] HIB 4 Dose Schedule 2001 Completed [facility] of 00:00:00 [facility] Hep B, Adol or Pedi 2001 Completed [facility]ity of Dosage 00:00:00 [facility] Polio (IPV/OPV) 2001 Completed [facility] 00:00:00 [facility] DTAP 2001 Completed [facility] 00:00:00 [facility] HIB 4 Dose Schedule 2001 Completed [facility] of 00:00:00 [facility] Hep B, Adol or Pedi 2001 Completed [facility]ity of Dosage 00:00:00 [facility] Polio (IPV/OPV) 2001 Completed [facility] 00:00:00 [facility] DTAP 2001 Completed [facility] 00:00:00 [facility] HIB 4 Dose Schedule 2001 Completed [facility] of 00:00:00 [facility] Hep B, Adol or Pedi 2001 Completed [facility] of Dosage 00:00:00 [facility] Polio (IPV/OPV) 2001 Completed [facility] 00:00:00 [facility] DTAP 2001 Completed [facility] 00:00:00 [facility] DTAP 2001 Completed [facility] 00:00:00 [facility] HIB 4 Dose Schedule 2001 Completed [facility]ity of 00:00:00 [facility] Hep B, Adol or Pedi 2001 Completed [facility]ive [facility]ity of Dosage 00:00:00 [facility] Polio (IPV/OPV) 2001 Completed [facility] 00:00:00 [facility] DTAP 2001 Completed [facility] 00:00:00 [facility] HIB 4 Dose Schedule 2001 Completed [facility] of 00:00:00 [facility] Hep B, Adol or Pedi 2001 Completed [facility] of Dosage 00:00:00 [facility] HIB 4 Dose Schedule 2001 Completed [facility]ity of 00:00:00 [facility] Polio (IPV/OPV) 2001 Completed [facility] 00:00:00 [facility] DTAP 2001 Completed [facility] 00:00:00 [facility] HIB 4 Dose Schedule 2001 Completed [facility] of 00:00:00 [facility] Hep B, Adol or Pedi 2001 Completed [facility] of Dosage 00:00:00 [facility] Polio (IPV/OPV) 2001 Completed [facility] 00:00:00 [facility] DTAP 2001 Completed [facility] 00:00:00 [facility] Hep B, Adol or Pedi 2001 Completed [facility]ity of Dosage 00:00:00 [facility] HIB 4 Dose Schedule 2001 Completed [facility]ity of 00:00:00 [facility] Hep B, Adol or Pedi 2001 Completed [facility] of Dosage 00:00:00 [facility] Polio (IPV/OPV) 2001 Completed [facility] 00:00:00 [facility] DTAP 2001 Completed [facility] 00:00:00 [facility] HIB 4 Dose Schedule 2001 Completed [facility] of 00:00:00 [facility] Hep B, Adol or Pedi 2001 Completed [facility] of Dosage 00:00:00 [facility] Polio (IPV/OPV) 2001 Completed [facility] 00:00:00 [facility] Hep B, Adol or Pedi 2001 Completed [facility]ity of Dosage 00:00:00 [facility] Hep B, Adol or Pedi 2001 Completed [facility] of Dosage 00:00:00 [facility] Hep B, Adol or Pedi 2001 Completed [facility]ity of Dosage 00:00:00 [facility] Hep B, Adol or Pedi 2001 Completed [facility]ity of Dosage 00:00:00 [facility] Hep B, Adol or Pedi 2001 Completed [facility] of Dosage 00:00:00 [facility] Hep B, Adol or Pedi 2001 Completed [facility] of Dosage 00:00:00 [facility] Hep B, Adol or Pedi 2001 Completed [facility]ity of Dosage 00:00:00 [facility] Hep B, Adol or Pedi 2001 Completed [facility]ity of Dosage 00:00:00 [facility] Hep B, Adol or Pedi [...] 2001 Completed [facility]ive [facility]ity of Dosage 00:00:00 [facility] Hep B, Adol or Pedi [...] 2001 Completed [facility]ity of Dosage 00:00:00 [facility] Hep B, Adol or Pedi 2001 Completed [facility]ity of Dosage 00:00:00 [facility] Hep B, Adol or Pedi 2001 Completed Unive [facility]ity of Dosage 00:00:00 [facility] Vital Signs Vital Name Observation Time Observation Value Comments Source Systolic blood 2020-08-20 14:45:00 119 mm[Hg] Univer sity of pressure [facility] Diastolic blood 2020-08-20 14:45:00 75 mm[Hg] Unive rsity of pressure [facility] Heart rate 2020-08-20 14:45:00 80 /min Universi ty of [facility] Body temperature 2020-08-20 14:45:00 36.78 [facility] Body height 2020-08-20 14:45:00 177.8 cm Universi ty of [facility] Body weight 2020-08-20 14:45:00 131.588 kg Universi ty [facility] BMI 2020-08-20 14:45:00 41.63 kg/m2 [facility] Oxygen saturation in 2020-08-20 14:45:00 99 /min University Arterial blood by [facility] Pulse oximetry Branch height 2020-08-12 10:30:00 69 [in_i] [facility] weight 2020-08-12 10:30:00 287 [lb_av] [facility] bmi 2020-08-12 10:30:00 42.38 kg/m2 [facility] blood pressure 2020-08-12 10:30:00 118 mm[Hg] [facility] blood pressure 2020-08-12 10:30:00 78 mm[Hg] [facility] - diastolic [facility] Systolic blood 2020-07-09 15:47:00 123 mm[Hg] Univer sity of [facility] Diastolic blood 2020-07-09 15:47:00 80 mm[Hg] Unive rsity of pressure [facility] Heart rate 2020-07-09 15:47:00 92 /min Universi ty of [facility] Body temperature 2020-07-09 15:47:00 37 Lilo Univ ers[facility] Respiratory rate 2020-07-09 15:47:00 18 /min Univ ersity of [facility] Body height 2020-07-09 15:47:00 175.3 cm [facility]i ty [facility] Body weight 2020-07-09 15:47:00 127.914 kg [facility]i [facility] of [facility] BMI 2020-07-09 15:47:00 41.64 kg/m2 [facility] Oxygen saturation in 2020-07-09 15:47:00 98 /min University of Arterial blood by [facility] Systolic blood 2020-06-25 16:42:00 120 mm[Hg] Univer sity of pressure [facility] Diastolic blood 2020-06-25 16:42:00 77 mm[Hg] Unive rsity of pressure [facility] Heart rate 2020-06-25 16:42:00 72 /min [facility] Body temperature 2020-06-25 16:42:00 37 Lilo [facility] Respiratory rate 2020-06-25 16:42:00 18 /min Univ [facility] Body height 2020-06-25 16:42:00 177.8 cm [facility] Body weight 2020-06-25 16:42:00 127.914 kg [facility] BMI 2020-06-25 16:42:00 40.46 kg/m2 [facility] Oxygen saturation in 2020-06-25 16:42:00 100 /min University of Arterial blood by [facility] Systolic blood 2020-06-17 12:15:00 138 mm[Hg] Univer sity of pressure [facility] Diastolic blood 2020-06-17 12:15:00 83 mm[Hg] Unive rsity of pressure [facility] Heart rate 2020-06-17 12:15:00 64 /min [facility] Body temperature 2020-06-17 12:15:00 36.44 Lilo [facility] Respiratory rate 2020-06-17 12:15:00 18 /min Univ [facility] Body height 2020-06-17 12:15:00 177.8 cm [facility] Body weight 2020-06-17 12:15:00 127.007 kg [facility] BMI 2020-06-17 12:15:00 40.18 kg/m2 [facility] Oxygen saturation in 2020-06-17 12:15:00 99 /min University of Arterial blood by [facility] height 2020-06-10 10:30:00 69 [in_i] [facility] weight 2020-06-10 10:30:00 287 [lb_av] [facility] temperature 2020-06-10 10:30:00 97.3 [degF] [facility] bmi 2020-06-10 10:30:00 42.38 kg/m2 [facility] blood pressure 2020-06-10 10:30:00 120 mm[Hg] [facility] - systolic [facility] blood pressure 2020-06-10 10:30:00 74 mm[Hg] [facility] - diastolic [facility] Systolic blood 2020-05-14 17:54:00 115 mm[Hg] Univer sity of pressure [facility] Diastolic blood 2020-05-14 17:54:00 67 mm[Hg] Unive rsity of [facility] Heart rate 2020-05-14 17:54:00 77 /min Universi [facility] Body temperature 2020-05-14 17:54:00 36.67 Lilo [facility] Respiratory rate 2020-05-14 17:54:00 18 /min [facility] Body height 2020-05-14 17:54:[facility] 2020-05-14 17:54:00 128[facility]323 [facility] 2020-05-14 17:54:00 40.59 kg/m2 [facility] Oxygen saturation in 2020-05-14 17:54:00 100 /min University of Arterial blood by [facility] Systolic blood 2020-05-14 17:54:00 115 mm[Hg] Univer sity of pressure [facility] Diastolic blood 2020-05-14 17:54:00 67 mm[Hg] Unive rsity of [facility] Heart rate 2020-05-14 17:54:00 77 /min Universi ty of [facility] Body temperature 2020-05-14 17:54:00 36.67 Lilo [facility] ersity of [facility] Respiratory rate 2020-05-14 17:54:00 18 /min [facility] ersity [facility] Body height 2020-05-14 17:54:00 177.8 cm Universi ty of [facility] Body weight 2020-05-14 17:54:00 128.323 kg Universi ty [facility] BMI 2020-05-14 17:54:00 40.59 kg/m2 Universi ty [facility] Oxygen saturation in 2020-05-14 17:54:00 100 /min [facility] Arterial blood by [facility] Pulse [facility] height 2020-04-21 14:00:00 69 [in_i] [facility] weight 2020-04-21 14:00:00 279 [lb_av] [facility] temperature 2020-04-21 14:00:00 97.7 [degF] [facility] bmi 2020-04-21 14:00:00 41.2 kg/m2 [facility] blood pressure 2020-04-21 14:00:00 122 mm[Hg] [facility] blood pressure 2020-04-21 14:00:00 80 mm[Hg] [facility] blood pressure 2020-03-20 11:15:00 89 mm[Hg] [facility] height 2020-03-20 11:15:00 69 [in_i] [facility] weight 2020-03-20 11:15:00 279 [lb_av] [facility] bmi 2020-03-20 11:15:00 41.2 kg/m2 [facility] blood pressure 2020-03-20 11:15:00 147 mm[Hg] [facility] height 2020-03-11 15:30:00 69 [in_i] [facility] weight 2020-03-11 15:30:00 279 [lb_av] [facility] temperature 2020-03-11 15:30:00 97.1 [degF] [facility] bmi 2020-03-11 15:30:00 41.20 kg/m2 [facility] blood pressure 2020-03-11 15:30:00 133 mm[Hg] [facility] blood pressure 2020-03-11 15:30:00 84 mm[Hg] [facility] height 2020-02-28 10:00:00 69 [in_i] [facility] weight 2020-02-28 10:00:00 179 [lb_av] [facility] temperature 2020-02-28 10:00:00 97.3 [degF] [facility] bmi 2020-02-28 10:00:00 26.43 kg/m2 [facility] blood pressure 2020-02-28 10:00:00 124 mm[Hg] [facility] - systolic [facility] blood pressure 2020-02-28 10:00:00 84 mm[Hg] [facility] - [facility] height 2020-02-12 10:30:00 69 [in_i] [facility] weight 2020-02-12 10:30:00 179 [lb_av] [facility] temperature 2020-02-12 10:30:00 97.1 [degF] [facility] bmi 2020-02-12 10:30:00 26.43 kg/m2 [facility] blood pressure 2020-02-12 10:30:00 124 mm[Hg] [facility] - systolic [facility] blood pressure 2020-02-12 10:30:00 82 mm[Hg] [facility] - diastolic [facility] height 2020-01-29 11:00:00 69 [in_i] [facility] weight 2020-01-29 11:00:00 179 [lb_av] [facility] bmi 2020-01-29 11:00:00 26.43 kg/m2 [facility] - [facility] blood pressure 2020-01-29 11:00:00 118 mm[Hg] [facility] - systolic [facility] blood pressure 2020-01-29 11:00:00 82 mm[Hg] [facility] - [facility] height 2020-01-22 13:00:00 69 [in_i] [facility] weight 2020-01-22 13:00:00 179 [lb_av] [facility] bmi 2020-01-22 13:00:00 26.43 kg/m2 [facility] blood pressure 2020-01-22 13:00:00 120 mm[Hg] [facility] - systolic [facility] blood pressure 2020-01-22 13:00:00 80 mm[Hg] [facility] - diastolic [facility] Systolic blood 2020-01-20 19:46:00 140 mm[Hg] Univer sity of pressure [facility] Diastolic blood 2020-01-20 19:46:00 79 mm[Hg] Unive rsity of pressure [facility] Heart rate 2020-01-20 19:46:00 99 /min Universi ty [facility] Body temperature 2020-01-20 19:46:00 37.44 Lilo Univ ersity of [facility] Respiratory rate 2020-01-20 19:46:00 18 /min Univ ersity of [facility] Body weight 2020-01-20 19:46:00 126.554 kg Universi ty [facility] Oxygen saturation in 2020-01-20 19:46:00 97 /min University Arterial blood by [facility] Pulse oximetry Branch Systolic blood 2020-01-02 14:09:00 120 mm[Hg] Univer sity of pressure [facility] Diastolic blood 2020-01-02 14:09:00 83 mm[Hg] Unive rsity of pressure [facility] Heart rate 2020-01-02 14:09:00 79 /min Universi ty [facility] Body temperature 2020-01-02 14:09:00 36.67 Lilo [facility] ersity of [facility] Respiratory rate 2020-01-02 14:09:00 18 /min Univ ersity of [facility] Body height 2020-01-02 14:09:00 175.3 cm [facility] Body weight 2020-01-02 14:09:00 126.554 kg Universi ty of [facility] BMI 2020-01-02 14:09:00 41.20 kg/m2 Universi ty of [facility] Oxygen saturation in 2020-01-02 14:09:00 100 /min [facility] Arterial blood by [facility] Pulse oximetry Branch Systolic blood 2019-11-23 15:43:00 132 mm[Hg] Univer sity of pressure [facility] Diastolic blood 2019-11-23 15:43:00 80 mm[Hg] Unive rsity of [facility] Heart rate 2019-11-23 15:43:00 87 /min Universi ty of [facility] Body temperature 2019-11-23 15:43:00 37.22 Lilo [facility] Res[facility] rate 2019-11-23 15:43:00 20 /min [facility] ersity of [facility] Body height 2019-11-23 15:43:00 172.5 cm Universi ty of [facility] Body weight 2019-11-23 15:43:00 126.724 kg Universi ty of [facility] BMI 2019-11-23 15:43:00 42.59 kg/m2 Universi ty of [facility] Body height 2019-08-17 16:00:00 177.8 cm Universi ty of [facility] Body weight 2019-08-17 16:00:00 113.399 kg Universi ty [facility] BMI 2019-08-17 16:00:00 35.87 kg/m2 [facility] Procedures Procedure Date / Time Performing Clinician Source Performed POCT TEST 2020-06-17 11:30:00 Maria R He [facility] ASSIGNMENT OF BENEFITS 2020-06-17 10:54:43 Doctor Unassigned, No [facility] Name Medical Branch DISCLOSURE AND CONSENT, 2020-05-14 06:01:00 Doctor Unassigned, N o University [facility] MEDICAL AND SURGICAL Name Medical Bra nc PROCEDURES XR KNEE 3 VW RIGHT 2020-01-20 20:20:03 Leyda Juares [facility] CONSENT/REFUSAL FOR 2020-01-20 19:36:17 Doctor Unassigned, No [facility] DISCLOSURE AND CONSENT, 2020-01-02 05:01:00 Doctor Unassigned, N o [facility] MEDICAL AND SURGICAL Name Medical Bra [facility] PROCEDURES MENINGOCOCCAL B VACCINE, 2019-11-23 15:55:20 Izzy Villanueva [facility] OMV, 2 DOSE, IM [facility] NOTICE OF PRIVACY 2019-11-23 15:23:48 Doctor Unassigned, No Univ [facility] PRACTICES Name [facility] Encounters Start End Encounter Admission Attending Care Care Encounter Source Date/Time Date/Time Type Type Clinicians Facility Department ID 2021-05-13 Outpatient [facility] [id number] Common 11:52:27 [id number] [facility] 2021-02-15 Outpatient ELVIE FAN [facility] [id number] Univers 01:09:16 ity of [facility] 2021-02-13 Emergency [facility] [id number] Univers 20:55:59 ity [facility] 2020-08-20 2020-08-20 Office Elvie Fan [facility] 1.2.840.114 [id number] Univers 09:39:34 10:17:52 Visit E SPECIALTY 350.1.13.10 ity of CARE 4.2.7.2.686 [facility] AT [phone] [place] [address] [place] 2020-08-20 2020-08-20 Outpatient ELVIE DOOLEY [facility] [id number] Univers 09:45:00 09:45:00 ity [facility] 2020-08-12 2020-08-12 OFFICE [facility] [id number] Co mmon 00:00:00 00:00:00 VISIT EST Spir it PT LEVEL 3 - [facility] 2020-07-23 2020-07-23 Outpatient ELVIE DOOLEY [facility] [id number] Univers 10:45:00 10:45:00 ity [facility] 2020-07-16 2020-07-16 Outpatient R MITA ELVIE [facility] [id number] Univers 09:45:00 09:45:00 ity of [facility] 2020-07-16 2020-07-16 Telemedici Elvie Fan [facility] [id number] Univers 07:55:20 08:10:20 ne Visit E SPECIALTY 350.1.13.10 [phone] [place] [address] [place] [address] 2020-07-09 2020-07-09 Office [facility] 1.2.840.114 [id number] Univers 10:42:26 11:51:21 Visit E SPECIALTY 350.1.13.10 ity of CARE 4.2.7.2.686 [facility] [phone] [place] [address] [place] [address] 2020-07-09 2020-07-09 Outpatient R ELVIE FAN [facility] [id number] Univers 10:45:00 10:45:00 ity of [facility] 2020-06-25 2020-06-25 Office [facility] 1.2.840.114 [id number] Univers 10:31:50 11:20:56 Visit E SPECIALTY 350.1.13.10 ity of CARE 4.2.7.2.686 [facility] AT [phone] [place] [address] [place] [address] 2020-06-25 2020-06-25 Outpatient R ELVIE FAN [facility] [id number] Univers 10:45:00 10:45:00 ity of [facility] 2020-06-20 2020-06-20 Outpatient R FARHEEN [facility] [id number] Univers 13:00:00 13:00:00 DANIS aviles [facility] 2020-06-17 2020-06-17 [facility] [id number] Univers 04:54:00 12:53:00 Encounter E Health 350.1.13.10 it[place]2.[place] [facility] [phone] [address] ([facility]) 2020-06-17 2020-06-17 Orders Doctor ADRI 1.2.840.114 [id number] Univers 00:00:00 00:00:00 Only Unassigned, MELBA 350.1.13.10 ity of [place] [facility] 4.2.7.2.686 [place] as [phone] [facility] [address] [place] 2020-06-17 2020-06-17 Telephone Elvie Fan [facility] 1.2.840.114 [id number] Univers 00:00:00 00:00:00 E SPECIALTY 350.1.13.10 [place] [phone] [place] 201 [facility] 2020-06-16 2020-06-16 Nurse ADRI Manrique 1.2.840.114 [id number] Univers 00:00:00 00:00:00 Triage Randi MELBA 350.1.13.10 it y of HOSPITAL 4.2.7.2.686 [place] as [phone] [facility] 019 [place] 2020-06-13 2020-06-13 Laboratory Only, Adc Test [facility] 1.2.840. 114 [id number] Univers 09:42:52 09:57:52 Only Dhiraj June 350.1.13.10 ity of [place] 4.2.7.2.686 [facility] [phone] [facility] [address] [place] 2020-06-13 2020-06-13 Outpatient R SHAYLEE [facility] [id number] Univers 09:45:00 09:45:00 DHIRAJ villa [facility] 2020-06-11 2020-06-11 Outpatient R ELVIE FAN [facility] [id number] Univers 09:15:00 09:15:00 akankshay [facility] 2020-06-11 2020-06-11 Telemedici Elvie Fan [facility] 1.2.840.114 [id number] Univers 07:53:33 08:08:33 ne Visit E SPECIALTY 350.1.13.10 ity [place] [phone] [place] [address] [place] [address] 2020-06-10 2020-06-10 OFFICE STLMLC STLC [id number] Co mmon 00:00:00 00:00:00 VISIT EST Spir it PT LEVEL 3 - [facility] 2020-05-14 2020-05-14 Office Elvie Fan [facility] 1.2.840.114 [id number] 11:37:54 11:37:54 Visit E SPECIALTY 350.1.13.10 CARE 4.2.7.2.686 CENTER AT [phone] [facility] [address] [place] [address] 2020-05-14 2020-05-14 Office Elvie Fan [facility] 1.2.840.114 [id number] Univers 11:37:54 11:37:54 Visit E SPECIALTY 350.1.13.10 it[id number] [phone] [place] [address] 2020-05-14 2020-05-14 Outpatient R ELVIE FAN [facility] [id number] Univers 11:30:00 11:30:00 ity of [facility] 2020-05-14 2020-05-14 Orders Doctor ADRI 1.2.840.114 [id number] 00:00:00 00:00:00 Only Unassigned, MELBA 350.1.13.10 [place] [facility] 4.2.7.2.686 [id number] [id number] 2020-05-14 2020-05-14 Orders Doctor ADRI 1.2.840.114 [id number] Univers 00:00:00 00:00:00 Only Unassigned, MELBA 350.1.13.10 ity of [place] [facility] 4.2.7.2.686 [place] as [id number] [address] 2020-04-21 2020-04-21 NON-BILLAB STLMLC STLC [id number] Common 00:00:00 00:00:00 LE VISIT Spiri t [facility] 2020-04-02 2020-04-02 Prep For Elvie Fan [facility] 1.2.840.114 [id number] Univers 00:00:00 00:00:00 Surgery E SPECIALTY 350.1.13.10 it[place] [id number] [place] 201 [facility] 2020-03-26 2020-03-26 Outpatient R ELVIE FAN [facility] [id number] Univers 09:00:00 09:00:00 ity of [facility] 2020-03-26 2020-03-26 Telemedici Elvie Fan [facility] 1.2.840.114 [id number] Univers 08:01:41 08:16:41 ne Visit E SPECIALTY 350.1.13.10 ity of CARE 4.2.7.2.686 [facility] AT [phone] [place] 201 [facility] 2020-03-20 2020-03-20 NON-BILLAB STLMLC STLMLC [id number] Common 00:00:00 00:00:00 [facility] 2020-03-11 2020-03-11 NON-BILLAB STLMLC STLMLC [id number] Common 00:00:00 00:00:00 LE VISIT Spiri t - [facility] 2020-02-28 2020-02-28 OFFICE STLMLC STLMLC [id number] Co mmon 00:00:00 00:00:00 VISIT EST Spir it PT LEVEL 3 - [facility] 2020-02-18 2020-02-18 (TEL) STLMLC STLMLC [id number] Co mmon 00:00:00 00:00:00 Spirit - [facility] 2020-02-12 2020-02-12 OFFICE STLMLC STLMLC [id number] Co mmon 00:00:00 00:00:00 VISIT Spirit ESTAB PT - CHI LEVEL 4 [facility] 2020-01-30 2020-01-30 Outpatient R ELVIE FAN [facility] [id number] Univers 09:45:00 09:45:00 ity of [facility] 2020-01-30 2020-01-30 Telephone ADRI Davis [id number] Univers 00:00:00 00:00:00 Jocelin REILLY 350.1.13.10 ity of [facility] 4.2.7.2.686 [place] [phone] [address] 2020-01-29 2020-01-29 OFFICE STLMLC STLMLC [id number] Co mmon 00:00:00 00:00:00 VISIT Spirit ESTAB PT - CHI LEVEL 4 [facility] 2020-01-25 2020-01-25 Outpatient R ELVIE FAN [facility] [id number] Univers 14:40:00 14:40:00 ity of [facility] 2020-01-23 2020-01-23 Telemedici Elvie Fan [facility] 1.2.840.1 [id number] Univers 07:42:59 20:30:59 ne Visit E Y HEALTH 350.1.13.10 ity of CLINICS 4.2.7.2.686 [facility] [id number] [facility] [address] [place] 2020-01-23 2020-01-23 Outpatient R ELVIE FAN [facility] [id number] Univers 09:15:00 09:15:00 ity of [facility] 2020-01-23 2020-01-23 (TEL) STLMLC STLMLC [id number] Co mmon 00:00:00 00:00:00 Spirit - [facility] 2020-01-22 2020-01-22 OFFICE STLMLC STLMLC [id number] Co mmon 00:00:00 00:00:00 VISIT TETE Yang it PT LEVEL 4 - [facility] 2020-01-20 2020-01-20 [facility] [id number] Univers 14:48:00 16:37:00 Leyda Rodriges 350.1.13.10 ity of [place] 4.2.7.2.686 [facility] [id number] [facility] [address] [place] 2020 2020 Telephone Mita Elvie [facility] 1.2.840.114 [id number] Univers 00:00:00 00:00:00 E SPECIALTY 350.1.13.10 ity of [facility] 4.2.7.2.686 [facility] AT [id number] [place] [address] 2020-01-16 2020-01-16 Telephone [facility] 1.2.840.114 [id number] Univers 00:00:00 00:00:00 Izzy Saldivar 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 350.1.13.10 it y of [facility] 4.2.7.2.686 Germain as MATERNAL [phone] Med ical & CHILD [address] [place] [address] 2020-01-02 2020-01-02 Office Elvie Fan [facility] 1.2.840.114 [id number] Univers 09:01:49 17:14:00 Visit E SPECIALTY 350.1.13.10 ity [place]2.[place] [phone] [place] [address] [place] [address] 2020-01-02 2020-01-02 Outpatient R ELVIE FAN [facility] [id number] Univers 09:15:00 09:15:00 ity [facility] 2020-01-02 2020-01-02 Orders Doctor [place]USH 1.2.840.114 [id number] Univers 00:00:00 00:00:00 Only Unassigned, MELBA 350.1.13.10 ity of [place] [facility] 4.2.7.2.686 [place] as [phone] [address] 2019-12-05 2019-12-05 Outpatient R ELVIE FAN [facility] [id number] Univers 10:00:00 10:00:00 ity of [facility] 2019-11-23 2019-11-23 Outpatient R ELVIE FAN [facility] [id number] Univers 13:00:00 13:00:00 ity of [facility] 2019-11-23 2019-11-23 [facility] 1.2.643.539 [id number] Univers 11:20:22 11:35:22 Encounter Izzy Saldivar 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 350.1.13.10 ity of [facility] 4.2.7.2.686 [place] as MATERNAL [phone] [facility] ical & CHILD [address] [place] [address] 2019-11-23 2019-11-23 Corina Villanueva [facility] 1.2.920.826 [id number] Univers 10:31:41 11:21:56 Visit Izzy Saldivar 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 350.1.13.10 it y of [facility] 4.2.7.2.686 [place] as MATERNAL [phone] Med ical & CHILD [address] [place] [address] 2019-11-23 2019-11-23 Outpatient Rebeca VILLANUEVA [facility] [id number] Univers 10:45:00 10:45:00 IZZY valelila [facility] 2019-11-23 2019-11-23 Orders Doctor ADRI 1.2.840.114 [id number] Univers 00:00:00 00:00:00 Only Unassigned, MELBA 350.1.13.10 ity of [place] [facility] 4.2.7.2.686 [place] as [phone] [address] 2019-08-17 2019-08-17 TelemedicElvie Wright [facility] 1.2.840.114 [id number] Univers 08:10:51 16:47:26 ne Visit E SPECIALTY 350.1.13.10 ity of [facility] 4.2.7.2.[place] [phone] [place] d[place] [address] 2019-08-17 2019-08-17 Outpatient ELVIE DOOLEY [facility] [id number] Univers 13:15:00 [facility] 2019-08-15 Outpatient ELVIE DOOLEY [facility] [id number] Univers 10:00:00 10:00:00 daisy [facility] 2019-07-24 2019-07-24 Outpatient Rebeca BAE [facility] [id number] Univers 09:00:00 09:00:00 SAMIA villa [facility] 2019-07-20 2019-07-20 Lilly Herbert [facility] 1.2.840.114 [id number] Univers 09:10:58 09:25:58 ne Visit Adalberto 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 350.1.13.10 i ty of REGIONAL 4.2.7.2.686 [place] as MATERNAL [phone] Med ical & CHILD 107 [facility] [place] [place] 2019-07-20 2019-07-20 Outpatient Rebeca HERBERT [facility] [id number] Univers 09:00:00 09:00:00 ADALBERTO villa [facility] 2019-07-20 2019-07-20 Maryann Bae [facility] [id number] [id number] Univers 00:00:00 00:00:00 Samia A SPECIALTY 350.1.13.10 ity of [place].2.[place] [id number] [place] 198 [facility] 2019-07-17 2019-07-17 Telephone Alison Torres [facility] 1.2.840.114 [id number] Univers 00:00:00 00:00:00 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 350.1.13.10 it y of REGIONAL 4.2.7.2.686 [place] as MATERNAL [phone] Med ical & CHILD 107 [facility] [place] [place] Results Test Description Test Time Test Comments Results Result Comments Source POCT Test 2020-06-17 11:33:00 Test Item Value Reference Range Interpretation Comme nts POCT PREG (test code = 1605) Negative On board controls acceptable with C Line (test code = 3574) Yes POCT PREG LOT # (test code = 3575) POCT PREG TEST DATE (test code = 3576) Lab Interpretation (test code = 62410-2) Normal [facility] Wo ContMRI Knee Right Wo Cont
[2022-07-07] MEDS ORDERED: HYDROCODONE/APAP 5/325 MG TAB ONE (22:45)
[2022-07-07] MEDS ORDERED: ACETAMINOPHEN 325 MG TABLET ONE (22:45)
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
[2022-07-08 11:11] VITALS: BP 133/77; TEMP 98.5; O2SAT 100
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
== END 2022-07-08 00:52 | disposition home or self-care (01) ==
LOC: ER 21:16
DX: S00.93XA Contusion of unspecified part of head, initial encounter (principal); S00.33XA Contusion of nose, initial encounter; M54.2 Cervicalgia
CPT/HCPCS: 70450; 70486; 72125; 76377

== ENCOUNTER 2022-12-20 22:17 | Emergency (ER) | payer OTHER ==
--- OUTSIDE RECORDS SUMMARY | 2022-12-20 22:32 | XMS REPORT | Continuity of Care Document ---
:2001 Author Organization [facility] t Address [address] [place] [place] [address] Care Team Providers Name Role Phone ELVIE FAN Attending Clinician Unavailable Elvie Fan MD Attending Clinician DANIS ZHONG Attending Clinician Unavailable Doctor Unassigned, Gloria [place] Attending Clinician Unavailable Randi Manrique RN Attending [...] Type Policy Number Effective Date Expiration Date [facility] [id number] 2016 HEALTH CHOICE 00:00:00 [facility]ICA[employer] [facility] [id number] [facility] [id number] [facility] [id number] [facility] [id number] [facility] [id number] [facility] [id number] [facility] [id number] [facility] [id number] [facility] - [facility] [id number] [facility] [id number] [facility] [id number] [facility] Problems Condition Condition Condition Status Onset [...] ally from Medical request Branch for surgery [id number] 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 [...] Active Univers ALLERGIE Class ity of [facility] Social History Social Habit Start Date Stop Date Quantity Comments Source History of [facility] - [facility] Exposure to Not sure University of SARS-CoV-2 [facility] (event) [place] Tobacco use and 2020-08-20 2020-08-20 Never used Universit y of exposure 00:00:00 00:00:00 [facility] Alcohol intake 2020-08-20 2020-08-20 Current University of 00:00:00 00:00:00 non-drinker of [facility] alcohol [place] (finding) Tobacco Comment 2016-06-09 2016-06-09 step father Universi ty of 00:00:00 00:00:00 smokes outside [facility] Smoking Status Start Date Stop Date Source Never Smoker [facility] Medications Ordered Filled Start Stop Current Ordering Indication Dosage Frequency Signature Comments Components Source Medication Medication Date Date Medication? Clinician (SIG) Name Name silver Yes [id number] Apply to Uni vers sulfADIAZIN 3-24 area(s) 2 ity of E 00:00: (two) [place] (SILVADENE) 00 times Medical 1 % cream daily. Branch silver 2020-0 Yes [id number] Apply to Uni vers sulfADIAZIN 3-24 area(s) 2 ity of E 00:00: (two) [place] (SILVADENE) 00 times Medical 1 % cream daily. Branch silver 2020-0 Yes [id number] Apply to Uni vers sulfADIAZIN 3-24 area(s) 2 ity of E 00:00: (two) [place] (SILVADENE) 00 times Medical 1 % cream daily. Branch silver 2020-0 Yes [id number] Apply to Uni vers sulfADIAZIN 3-24 area(s) 2 ity of E 00:00: (two) [place] (SILVADENE) 00 times Medical 1 % cream daily. Branch silver 2020-0 Yes [id number] Apply to Uni vers sulfADIAZIN 3-24 area(s) 2 ity of E 00:00: (two) [place] (SILVADENE) 00 times Medical 1 % cream daily. Branch silver 2020-0 Yes [id number] Apply to Uni vers sulfADIAZIN 3-24 area(s) 2 ity of E 00:00: (two) [place] (SILVADENE) 00 times Medical 1 % cream daily. Branch silver 2020-0 Yes [id number] Apply to Uni vers sulfADIAZIN 3-24 area(s) 2 ity of E 00:00: (two) [place] (SILVADENE) 00 times Medical 1 % cream daily. Branch silver 2020-0 Yes [id number] Apply to Uni vers sulfADIAZIN 3-24 area(s) 2 ity of E 00:00: (two) [place] (SILVADENE) 00 times Medical 1 % cream daily. Branch HYDROmorpho 0 Yes .2mg 0.2 mg, Uni vers ne 3-02 Slow IV ity of (DILAUDID) 17:41: Push, [place] injection 09 Q5MIN PRN, Medi harvey 0.2 mg 10 doses, Branch Starting Tue06/17/20 at 1141, Until Discontinu ed, Routine, Pain (scale 7-10), PACU
Us e approved by (Faculty): PACU USE -ANESTHESI A SERVICE-HY DROMORPHON E INJECTIONS FENTanyl PF 2020-0 Yes 25ug 25 mcg, Uni vers (SUBLIMAZE 3-02 Slow IV ity of (PF)) 17:41: Push, [place] injection 09 Q5MIN PRN, Medi harvey 25 [...] [place] as 00 at 0928, Medical Until Branch Discontinu ed, Routine, Intra-op bupivacaine Yes PRN, [...] 1 [place] as mg 00 :00 dose, [facility] 06/17/20 at Branch 0530, Routine, DSU Pre-op ceFAZolin No 2000mg 2 g (2,000 Univers in dextrose 06-17 mg), IV ity of (iso-os) 11:30: 12:56 [place] (ANCEF) 2 00 :00 ONCE, 1 Medical gram/100 mL dose, [facility] Piggyback 2 06/17/20 at g 0530, 100 mL, DSU Pre-op
Reason for Anti-Infec tive: Surgical Prophylaxi s
Surgi harvey Prophylaxi s: Other (see Comments)< br>Duratio n of therapy: within 24 hours of surgery lactated No 1000mL at 42 [facility] rs ringers IV 06-1702 mL/hr, ity of infusion 11:30: 11:48 1,000 mL, [place] as 1,000 mL 00 :00 IV Medical Infusion, [place] ONCE, 1 dose, [facility] 06/17/20 at 0530, Routine, DSU Pre-op gabapentin 2020-2020- No 600mg Take 1 Uni vers 600 mg 06-17 tablet by ity of tablet 00:00: 04:59 mouth 3 [place] 00 :00 (three) Medical times [place] daily for 14 days. gabapentin 2020- No 600mg Take 1 Uni vers 600 mg 06-17 tablet by ity of tablet 00:00: 04:59 [...] Branch daily for 14 days. chlorhexidi Yes [id number] Apply to Univers ne 4 % 2-24 area(s) ity of external 00:00: once daily [place] liquid 00 as needed Medical for Wound Branch care. chlorhexidi 0 Yes [id number] Apply to Univers ne 4 % 2-24 area(s) ity of external 00:00: once daily [place] liquid 00 as needed Medical for Wound Branch care. chlorhexidi 0 Yes [id number] Apply to Univers ne 4 % 2-24 area(s) ity of external 00:00: once daily [place] liquid 00 as needed Medical for Wound Branch care. chlorhexidi 0 Yes [id number] Apply to Univers ne 4 % 2-24 area(s) ity of external 00:00: once daily [place] liquid 00 as needed Medical for Wound Branch care. chlorhexidi 0 Yes [id number] Apply to Univers ne 4 % 2-24 area(s) ity of external 00:00: once daily [place] liquid 00 as needed Medical for Wound Branch care. gabapentin 2020- No [id number] 600mg Take 1 Univers ER 600 mg 2-24 -11 tablet by ity of tablet, 00:00: 05:59 mouth [place] extended 00 :00 every 8 Medical release 24 (eight) Branch hr hours for 14 days. acetaminoph 2020- No [id number] 1000mg Take 2 Univers en (TYLENOL 2-24 -11 tablets by i ty of EXTRA 00:00: 05:59 mouth [place] STRENGTH) 00 :00 every 8 Medical 500 mg (eight) Branch tablet hours for 14 days. celecoxib 2020- No [id number] 200mg Take 1 Univers (CELEBREX) 2-24 03-11 capsule by it y of 200 mg 00:00: 05:59 mouth 2 [place] capsule 00 :00 (two) Medical times Branch daily with meals for 14 days. gabapentin 2020- No [id number] 600mg Take 1 Univers ER 600 mg 2-24 03-11 tablet by ity of tablet, 00:00: 05:59 mouth [place] extended 00 :00 every 8 Medical release 24 (eight) Branch hr hours for 14 days. acetaminoph 2020- No [id number] 1000mg Take 2 Univers en (TYLENOL 2-24 03-11 tablets by i ty of EXTRA 00:00: 05:59 mouth [place] STRENGTH) 00 :00 every 8 Medical 500 mg (eight) Branch tablet hours for 14 days. celecoxib 2020- No [id number] 200mg Take 1 Univers (CELEBREX) 2-24 03-11 capsule by it y of 200 mg 00:00: 05:59 mouth 2 [place] capsule 00 :00 (two) Medical times Branch daily with meals for 14 days. gabapentin 2020- No [id number] 600mg Take 1 Univers ER 600 mg 2-24 03-11 tablet by ity of tablet, 00:00: 05:59 mouth [place] extended 00 :00 every 8 Medical release 24 (eight) Branch hr hours for 14 days. acetaminoph 2020- No [id number] 1000mg Take 2 Univers en (TYLENOL 2-24 03-11 tablets by i ty of EXTRA 00:00: 05:59 mouth [place] STRENGTH) 00 :00 every 8 Medical 500 mg (eight) Branch tablet hours for 14 days. celecoxib 2020- No [id number] 200mg Take 1 Univers (CELEBREX) 2-24 03-11 capsule by it y of 200 mg 00:00: 05:59 mouth 2 [place] capsule 00 :00 (two) Medical times Branch daily with meals for 14 days. gabapentin 2020- No [id number] 600mg Take 1 Univers ER 600 mg 2-24 03-11 tablet by ity of tablet, 00:00: 05:59 mouth [place] extended 00 :00 every 8 Medical release 24 (eight) Branch hr hours for 14 days. acetaminoph 2020- No [id number] 1000mg Take 2 Univers en (TYLENOL 2-24 03-11 tablets by i ty of EXTRA 00:00: 05:59 mouth [place] STRENGTH) 00 :00 every 8 Medical 500 mg (eight) Branch tablet hours for 14 days. celecoxib 2020- No [id number] 200mg Take 1 Univers (CELEBREX) 2-24 03-11 capsule by it y of 200 mg 00:00: 05:59 mouth 2 [place] capsule 00 :00 (two) Medical times Branch daily with meals for 14 days. gabapentin 2020- No [id number] 600mg Take 1 Univers ER 600 mg 2-24 03-11 tablet by ity of tablet, 00:00: 05:59 mouth [place] extended 00 :00 every 8 Medical release 24 (eight) Branch hr hours for 14 days. acetaminoph 2020- No [id number] 1000mg Take 2 Univers en (TYLENOL 2-24 03-11 tablets by i ty of EXTRA 00:00: 05:59 mouth [place] STRENGTH) 00 :00 every 8 Medical 500 mg (eight) Branch tablet hours for 14 days. celecoxib 2020- No [id number] 200mg Take 1 Univers (CELEBREX) 224 03-11 capsule by it y of 200 mg 00:00: 05:59 mouth 2 [place] capsule 00 :00 (two) Medical times Branch daily with meals for 14 days. gabapentin 2020- No [id number] 600mg Take 1 Univers ER 600 mg 2-24 03-11 tablet by ity of tablet, 00:00: 05:59 mouth [place] extended 00 :00 every 8 Medical release 24 (eight) Branch hr hours for 14 days. acetaminoph 2020- No [id number] 1000mg Take 2 Univers en (TYLENOL 2-24 03-11 tablets by i ty of EXTRA 00:00: 05:59 mouth [place] STRENGTH) 00 :00 every 8 Medical 500 mg (eight) Branch tablet hours for 14 days. celecoxib 2020- No [id number] 200mg Take 1 Univers (CELEBREX) 2-24 03-11 capsule by it y of 200 mg 00:00: 05:59 mouth 2 [place] capsule 00 :00 (two) Medical times Branch daily with meals for 14 days. acetaminoph 2020- No [id number] 1000mg Take 2 Univers en (TYLENOL 2-24 03-11 tablets by i ty of EXTRA 00:00: 05:59 mouth [place] STRENGTH) 00 :00 every 8 Medical 500 mg (eight) Branch tablet hours for 14 days. celecoxib 2020- No [id number] 200mg Take 1 Univers (CELEBREX) 2-24 03-11 capsule by it y of 200 mg 00:00: 05:59 mouth 2 [place] capsule 00 :00 (two) Medical times Branch daily with meals for 14 days. acetaminoph 2020- No [id number] 1000mg Take 2 Univers en (TYLENOL 2-24 03-11 tablets by i ty of EXTRA 00:00: 05:59 mouth [place] STRENGTH) 00 :00 every 8 Medical 500 mg (eight) Branch tablet hours for 14 days. celecoxib 2020- No [id number] 200mg Take 1 Univers (CELEBREX) 2-24 03-11 capsule by it y of 200 mg 00:00: 05:59 mouth 2 [place] capsule 00 :00 (two) Medical times Branch daily with meals for 14 days. acetaminoph 2020- No [id number] 1000mg Take 2 Univers en (TYLENOL 2-24 03-11 tablets by i ty of EXTRA 00:00: 05:59 mouth [place] STRENGTH) 00 :00 every 8 Medical 500 mg (eight) Branch tablet hours for 14 days. celecoxib 2020- No [id number] 200mg Take 1 Univers (CELEBREX) 2-24 03-11 capsule by it y of 200 mg 00:00: 05:59 mouth 2 [place] capsule 00 :00 (two) Medical times Branch daily with meals for 14 days. acetaminoph 2020- No [id number] 1000mg Take 2 Univers en (TYLENOL 2-24 03-11 tablets by i ty of EXTRA 00:00: 05:59 mouth [place] STRENGTH) 00 :00 every 8 Medical 500 mg (eight) Branch tablet hours for 14 days. celecoxib 2020- No [id number] 200mg Take 1 Univers (CELEBREX) 2-24 03-11 capsule by it y of 200 mg 00:00: 05:59 mouth 2 [place] capsule 00 :00 (two) Medical times Branch daily with meals for 14 days. chlorhexidi 2020- No [id number] Apply to Univers ne 4 % 06-11 area(s) ity of external 00:00: 00:00 once daily [place] liquid 00 :00 as needed Medical for Wound Branch care. gabapentin 2020- No [id number] 600mg Take 1 Univers ER 600 mg 06-11 tablet by ity of tablet, 00:00: 00:00 mouth [place] extended 00 :00 every 8 Medical release 24 (eight) Branch hr hours for 14 days. scopolamine 2020- No [id number] 1.5mg Apply 1 Univers transdermal 06-11- Patch to ity of 1 mg over 3 00:00: 05:59 area(s) [place] days patch 00 :00 every 72 Medic al (seventy-t Branch wo) hours for 3 days. scopolamine 2020- No [id number] 1.5mg Apply 1 Univers transdermal 06-11- Patch to ity of 1 mg over 3 00:00: 05:59 area(s) [place] days patch 00 :00 every 72 Medic al (seventy-t Branch wo) hours for 3 days. scopolamine 2020- No [id number] 1.5mg Apply 1 Univers transdermal 06-11- Patch [...] (scale 4-6). ibuprofen 2019-04 600mg Take 600 Un carol 600 mg [...] (scale 4-6). ibuprofen 2019-04 600mg Take 600 Un carol 600 mg [...] [facility] 1,000 mg 01/20/20 at [facility] h 1600, [place] traMADoL 50 [...] doses. Indication s: acute pain traMADoL 50 2020-1 Yes [id number] 50mg Take 1 Univ ers [...] Indication s: acute pain ibuprofen 2019-04- No [id number] 800mg Take 1 Univers 800 mg 0-04 10-04 tablet by ity of tablet 00:00: 00:00 mouth [place] 00 :00 every 8 Medical (eight) Branch hours as needed for Pain (scale 4-6) for up to 30 doses. ibuprofen 2020-0 Yes [id number] 800mg Take 1 U nivers 800 mg 4-03 tablet by ity of tablet 00:00: mouth [place] 00 every 8 Medical (eight) Branch hours. ibuprofen 2020-0 Yes [id number] 800mg Take 1 U nivers 800 mg 4-03 tablet by ity of tablet 00:00: mouth [place] 00 every 8 Medical (eight) Branch hours. ibuprofen 2020-0 Yes [id number] 800mg Take 1 U nivers 800 mg 4-03 tablet by ity of tablet 00:00: mouth [place] 00 every 8 Medical (eight) Branch hours. ibuprofen 2020-0 Yes [id number] 800mg Take 1 U nivers 800 mg 4-03 tablet by ity of tablet 00:00: mouth [place] 00 every 8 Medical (eight) Branch hours. ibuprofen 2020-0 Yes [id number] 800mg Take 1 U nivers 800 mg 4-03 tablet by ity of tablet 00:00: mouth [place] 00 every 8 Medical (eight) Branch hours. ibuprofen 2020-0 Yes [id number] 800mg Take 1 U nivers 800 mg 4-03 tablet by ity of tablet 00:00: mouth [place] 00 every 8 Medical (eight) Branch hours. ibuprofen 2020-0 Yes [id number] 800mg Take 1 U nivers 800 mg 4-03 tablet by ity of tablet 00:00: mouth [place] 00 every 8 Medical (eight) Branch hours. ibuprofen 2020-0 Yes [id number] 800mg Take 1 U nivers 800 mg 4-03 tablet by ity of tablet 00:00: mouth [place] 00 every 8 Medical (eight) Branch hours. ibuprofen 2020-0 Yes [id number] 800mg Take 1 U nivers 800 mg 4-03 tablet by ity of tablet 00:00: mouth [place] 00 every 8 Medical (eight) Branch hours. ibuprofen 2020-0 2020- No [id number] 800mg Take 1 Univers 800 mg 4-03 09-16 tablet by ity of tablet 00:00: 00:00 mouth [place] 00 :00 every 8 Medical (eight) Branch hours. ibuprofen 2020-0 2020- No [id number] 800mg Take 1 Univers 800 mg 4-03 09-16 tablet by ity of tablet 00:00: 00:00 mouth [place] 00 :00 every 8 Medical (eight) Branch hours. ibuprofen 2019- 2020- No [id number] 800mg Take 1 Univers 800 mg 4-03 09-16 tablet by ity of tablet 00:00: 00:00 mouth [place] 00 :00 every 8 Medical (eight) Branch hours. ibuprofen 2020- No [id number] 800mg Take 1 Univers 800 mg 4-03 09-16 tablet by ity of tablet 00:00: 00:00 mouth [place] 00 :00 every 8 Medical (eight) Branch hours. traMADOL 50 2018- Yes [id number] 50mg Take 1 Univers mg tablet 6-03 tablet by ity o f 00:00: mouth [place] 00 every 6 Medical (six) Branch hours as needed for Pain (scale 4-6). ibuprofen 2018- Yes [id number] 800mg Take 1 U nivers 800 mg 6-03 tablet by ity of tablet 00:00: mouth [place] 00 every 8 Medical (eight) Branch hours. traMADOL 50 2018- 2020- No [id number] 50mg Take 1 Univers mg tablet 6-03 04-03 tablet by ity of 00:00: 00:00 mouth [place] 00 :00 every 6 Medical (six) Branch hours as needed for Pain (scale 4-6). ibuprofen 2018- 2020- No [id number] 800mg Take 1 Univers 800 mg 6-03 04-03 tablet by ity of tablet 00:00: 00:00 mouth [place] 00 :00 every 8 Medical (eight) Branch hours. traMADOL 50 2018- 2020- No [id number] 50mg Take 1 Univers mg tablet 6-03 04-03 tablet by ity of 00:00: 00:00 mouth [place] 00 :00 every 6 Medical (six) Branch hours as needed for Pain (scale 4-6). ibuprofen 2020- No [id number] 800mg Take 1 Univers 800 mg 6-03 04-03 tablet by ity of tablet 00:00: 00:00 mouth [place] 00 :00 every 8 Medical (eight) Branch hours. Dextrometho Yes [id number] 10mL Take 10 mL Univers rphan-Guaif 2-12 by mouth 2 it y of enesin 00:00: (two) [place] (DELSYM 00 times Medical COUGH-CHEST daily. Branch CONGEST DM) 5-100 mg/5 mL Liqd Dextrometho 2019- No [id number] 10mL Take 10 mL Univers rphan-Guaif 05-30 by mouth 2 i ty of enesin 00:00: 00:00 (two) [place] (DELSY 00 :00 times Medical COUGH-CHEST daily. Branch CONGEST DM) 5-100 mg/5 mL Liqd Dextrometho 2019- No [id number] 10mL Take 10 mL Univers rphan-Guaif 05-30 by mouth 2 i ty of enesin 00:00: 00:00 (two) [place] (DELSYM 00 :00 times Medical COUGH-CHEST daily. Branch CONGEST DM) 5-100 mg/5 mL Liqd No known No Univers medications [facility] No known No Univers medications [facility] No known No Univers medications [facility] No known No Univers medications [facility] Ibuprofen Ibuprofen No Ibuprofen Common [facility] Hydrocodone Hydrocodone No Hydrocodon Common -Acetaminop -Ac[facility] Tramadol No Tramadol Com mon HCl HCl HCl [facility] Tramadol Tramadol No Tramadol HCl [...] y of Vaccine Quad IM 3+ 00:00:00 [facility] Meningococcal B, OMV 2017-05-25 Completed Univ ersity of 00:00:00 [facility] Meningococcal 2017-05-25 Completed University of Polysaccharide 00:00:00 [place] Medi harvey (groups A, C, Y and Branc h W-135) conjugate vaccine (MCV4P) Influenza Virus 2017-05-25 Completed Universit y of Vaccine Quad IM 3+ 00:00:00 [facility] Meningococcal B, OMV 2017-05-25 Completed Univ ersity of 00:00:00 [facility] Meningococcal 2017-05-25 Completed University of Polysaccharide 00:00:00 [place] Medi harvey (groups A, C, Y and Branc h W-135) conjugate vaccine (MCV4P) Influenza Virus 2017-05-25 Completed Universit y of Vaccine Quad IM 3+ 00:00:00 [facility] Meningococcal B, OMV 2017-05-25 Completed Univ ersity of 00:00:00 [facility] Meningococcal 2017-05-25 Completed University of Polysaccharide 00:00:00 [place] Medi harvey (groups A, C, Y and Branc h W-135) conjugate vaccine (MCV4P) Meningococcal 2017-05-25 Completed University of Polysaccharide 00:00:00 [place] Medi harvey (groups A, C, Y and Branc h W-135) conjugate vaccine (MCV4P) Influenza Virus 2017-05-25 Completed Universit y of Vaccine Quad IM 3+ 00:00:00 [facility] Meningococcal B, OMV 2017-05-25 Completed Univ ersity of 00:00:00 [facility] Influenza Virus 2017-05-25 Completed Universit y of Vaccine Quad IM 3+ 00:00:00 [facility] Meningococcal B, OMV 2017-05-25 Completed Univ ersity of 00:00:00 [facility] Meningococcal 2017-05-25 Completed University of Polysaccharide 00:00:00 [place] Medi harvey (groups A, C, Y and Branc h W-135) conjugate vaccine (MCV4P) Influenza Virus 2017-05-25 Completed Universit y of Vaccine Quad IM 3+ 00:00:00 [facility] Meningococcal B, OMV 2017-05-25 Completed Univ ersity of 00:00:00 [facility] Meningococcal 2017-05-25 Completed University of Polysaccharide 00:00:00 [place] Medi harvey (groups A, C, Y and Branc h W-135) conjugate vaccine (MCV4P) Influenza Virus 2017-05-25 Completed Universit y of Vaccine Quad IM 3+ 00:00:00 [facility] Meningococcal B, OMV 2017-05-25 Completed Univ ersity of 00:00:00 [facility] Meningococcal 2017-05-25 Completed University of Polysaccharide 00:00:00 [place] Medi harvey (groups A, C, Y and Branc h W-135) conjugate vaccine (MCV4P) Influenza Virus 2017-05-25 Completed Universit y of Vaccine Quad IM 3+ 00:00:00 [facility] Meningococcal B, OMV 2017-05-25 Completed Univ ersity of 00:00:00 [facility] Meningococcal 2017-05-25 Completed University of Polysaccharide 00:00:00 [place] Medi harvey (groups A, C, Y and Branc h W-135) conjugate vaccine (MCV4P) Influenza Virus 2017-05-25 Completed Universit y of Vaccine Quad IM 3+ 00:00:00 [facility] Meningococcal B, OMV 2017-05-25 Completed Univ ersity of 00:00:00 [facility] Meningococcal 2017-05-25 Completed University of Polysaccharide 00:00:00 [place] Medi harvey (groups A, C, Y and Branc h W-135) conjugate vaccine (MCV4P) Influenza Virus 2017-05-25 Completed Universit y of Vaccine Quad IM 3+ 00:00:00 [facility] Meningococcal B, OMV 2017-05-25 Completed Univ ersity of 00:00:00 [facility] Meningococcal 2017-05-25 Completed University of Polysaccharide 00:00:00 [place] Medi harvey (groups A, C, Y and Branc h W-135) conjugate vaccine (MCV4P) Influenza Virus 2017-05-25 Completed Universit y of Vaccine Quad IM 3+ 00:00:00 [facility] Meningococcal B, OMV 2017-05-25 Completed Univ ersity of 00:00:00 [facility] Meningococcal 2017-05-25 Completed University of Polysaccharide 00:00:00 [place] Medi harvey (groups A, C, Y and Branc h W-135) conjugate vaccine (MCV4P) Influenza Virus 2017-05-25 Completed Universit y of Vaccine Quad IM 3+ 00:00:00 [facility] Meningococcal B, OMV 2017-05-25 Completed Univ ersity of 00:00:00 [facility] Meningococcal 2017-05-25 Completed University of Polysaccharide 00:00:00 [place] Medi harvey (groups A, C, Y and Branc h W-135) conjugate vaccine (MCV4P) Influenza Virus 2017-05-25 Completed Universit y of Vaccine Quad IM 3+ 00:00:00 [facility] Meningococcal B, OMV 2017-05-25 Completed Univ ersity of 00:00:00 [facility] Meningococcal 2017-05-25 Completed University of Polysaccharide 00:00:00 [place] Medi harvey (groups A, C, Y and Branc h W-135) conjugate vaccine (MCV4P) Influenza Virus 2017-05-25 Completed Universit y of Vaccine Quad IM 3+ 00:00:00 [facility] Meningococcal B, OMV 2017-05-25 Completed Univ ersity of 00:00:00 [facility] Meningococcal 2017-05-25 Completed University of Polysaccharide 00:00:00 [place] Medi harvey (groups A, C, Y and Branc h W-135) conjugate vaccine (MCV4P) Influenza Virus 2017-05-25 Completed Universit y of Vaccine Quad IM 3+ 00:00:00 [facility] Meningococcal B, OMV 2017-05-25 Completed Univ ersity of 00:00:00 [facility] Meningococcal 2017-05-25 Completed University of Polysaccharide 00:00:00 [place] Medi harvey (groups A, C, Y and Branc h W-135) conjugate vaccine (MCV4P) Influenza Virus 2017-05-25 Completed Universit y of Vaccine Quad IM 3+ 00:00:00 [facility] Meningococcal B, OMV 2017-05-25 Completed Univ ersity of 00:00:00 [facility] Meningococcal 2017-05-25 Completed University of Polysaccharide 00:00:00 [place] Medi harvey (groups A, C, Y and Branc h W-135) conjugate vaccine (MCV4P) Influenza Virus 2017-05-25 Completed Universit y of Vaccine Quad IM 3+ 00:00:00 [facility] Meningococcal B, OMV 2017-05-25 Completed Univ ersity of 00:00:00 [facility] Meningococcal 2017-05-25 Completed University of Polysaccharide 00:00:00 [place] Medi harvey (groups A, C, Y and Branc h W-135) conjugate vaccine (MCV4P) Influenza Virus 2017-05-25 Completed Universit y of Vaccine Quad IM 3+ 00:00:00 [facility] Meningococcal B, OMV 2017-05-25 Completed Univ ersity of 00:00:00 [facility] Meningococcal 2017-05-25 Completed University of Polysaccharide 00:00:00 [place] Medi harvey (groups A, C, Y and Branc h W-135) conjugate vaccine (MCV4P) Influenza Virus 2017-05-25 Completed Universit y of Vaccine Quad IM 3+ 00:00:00 [facility] Meningococcal B, OMV 2017-05-25 Completed Univ ersity of 00:00:00 [facility] Meningococcal 2017-05-25 Completed University of Polysaccharide 00:00:00 [place] Medi harvey (groups A, C, Y and Branc h W-135) conjugate vaccine (MCV4P) Influenza Virus 2017-05-25 Completed Universit y of Vaccine Quad IM 3+ 00:00:00 [facility] Meningococcal B, OMV 2017-05-25 Completed Univ ersity of 00:00:00 [facility] Meningococcal 2017-05-25 Completed University of Polysaccharide 00:00:00 [place] Medi harvey (groups A, C, Y and Branc h W-135) conjugate vaccine (MCV4P) Influenza Virus 2017-05-25 Completed [facility] Vacc[facility] Quad IM 3+ 00:00:00 [facility] Meningococcal B, OMV 2017-05-25 Completed [facility] 00:[facility]:00 [facility] Meningococcal 2017-05-25 Completed [facility] Polysaccharide 00:00:00 [facility] (groups A, C, Y and Branc h W-135) conjugate vaccine (MCV4P) Influenza Virus 2017-05-25 Completed [facility] Vaccine Quad IM 3+ 00:00:00 [facility] Meningococcal B, OMV 2017-05-25 Completed [facility] 00:00:00 [facility] Meningococcal 2017-05-25 Completed [facility] Polysaccharide 00:00:00 [facility] (groups A, C, Y and Branc h W-135) conjugate vaccine (MCV4P) Influenza Virus 2017-05-25 Completed [facility] Vaccine Quad IM 3+ 00:00:00 [facility] Meningococcal B, OMV 2017-05-25 Completed [facility] 00:[facility]:00 [facility] Meningococcal 2017-05-25 Completed [facility] Polysaccharide 00:00:00 [facility] (groups A, C, Y and Branc h W-135) conjugate vaccine (MCV4P) Influenza Virus 2017-05-25 Completed [facility] Vaccine Quad IM 3+ 00:00:00 [facility] Meningococcal B, OMV 2017-05-25 Completed [facility] 00:00:00 [facility] Meningococcal 2017-05-25 Completed [facility] Polysaccharide 00:00:00 [facility] (groups A, C, Y and Branc h W-135) conjugate vaccine (MCV4P) Influenza Virus 2017-05-25 Completed [facility] Vaccine Quad IM 3+ 00:00:00 [facility] Meningococcal B, OMV 2017-05-25 Completed [facility] 00:00:00 [facility] Meningococcal 2017-05-25 Completed [facility] Polysaccharide 00:00:00 [facility] (groups A, C, Y and Branc h W-135) conjugate vaccine (MCV4P) Influenza Virus 2017-05-25 Completed [facility] Vaccine Quad IM 3+ 00:00:00 [facility] Meningococcal B, OMV 2017-05-25 Completed [facility] 00:00:00 [facility] Meningococcal 2017-05-25 Completed [facility] Polysaccharide 00:00:00 [place] [facility] (groups A, C, Y and Branc h W-135) conjugate vaccine (MCV4P) Influenza Virus 2017-05-25 Completed [facility] Vaccine Quad IM 3+ 00:00:00 [facility] Meningococcal B, OMV 2017-05-25 Completed [facility] 00:00:00 [facility] Meningococcal 2017-05-25 Completed [facility] Polysaccharide 00:00:00 [place] [facility] (groups A, C, Y and Branc h W-135) conjugate vaccine (MCV4P) Influenza Virus 2017-05-25 Completed [facility] Vaccine Quad IM 3+ 00:00:00 [facility] Meningococcal B, OMV 2017-05-25 Completed [facility] 00:[facility]:00 [facility] Meningococcal 2017-05-25 Completed [facility] Polysaccharide 00:00:00 [facility] (groups A, C, Y and Branc h W-135) conjugate vaccine (MCV4P) Influenza Virus 2017-05-25 Completed [facility] Vaccine Quad IM 3+ 00:00:00 [facility] Meningococcal B, OMV 2017-05-25 Completed [facility] 00:00:00 [facility] Meningococcal 2017-05-25 Completed [facility] Polysaccharide 00:00:00 [facility] (groups A, C, Y and Branc h W-135) conjugate vaccine (MCV4P) Influenza Virus 2017-05-25 Completed [facility] Vaccine Quad IM 3+ 00:00:00 [facility] Meningococcal B, OMV 2017-05-25 Completed [facility] 00:00:00 [facility] Meningococcal 2017-05-25 Completed [facility] Polysaccharide 00:00:00 [place] [facility] (groups A, C, Y and Branc h W-135) conjugate vaccine (MCV4P) Influenza Virus 2017-05-25 Completed [facility] Vaccine Quad IM 3+ 00:00:00 [facility] Meningococcal B, OMV 2017-05-25 Completed [facility] 00:00:00 [facility] Meningococcal 2017-05-25 Completed [facility] Polysaccharide 00:00:00 [place] [facility] (groups A, C, Y and Branc h W-135) conjugate vaccine (MCV4P) Influenza Virus 2017-05-25 Completed [facility] Vaccine Quad IM 3+ 00:00:00 [facility] Meningococcal B, OMV 2017-05-25 Completed [facility] 00:00:00 [facility] Meningococcal 2017-05-25 Completed [facility] Polysaccharide 00:00:00 [place] [facility] (groups A, C, Y and Branc h W-135) conjugate vaccine (MCV4P) Influenza Virus 2017-05-25 Completed [facility] Vaccine Quad IM 3+ 00:00:00 [facility] Meningococcal B, OMV 2017-05-25 Completed [facility] 00:00:00 [facility] Meningococcal 2017-05-25 Completed [facility] Polysaccharide 00:00:00 [place] [facility] (groups A, C, Y and Branc h W-135) conjugate vaccine (MCV4P) Influenza Virus 2017-05-25 Completed [facility] Vaccine Quad IM 3+ 00:00:00 [facility] Meningococcal B, OMV 2017-05-25 Completed [facility] 00:00:00 [facility] Meningococcal 2017-05-25 Completed [facility] Polysaccharide 00:00:00 [place] [facility] (groups A, C, Y and Branc h W-135) conjugate vaccine (MCV4P) Influenza Virus 2017-05-25 Completed [facility] Vaccine Quad IM 3+ 00:00:00 [facility] Meningococcal B, OMV 2017-05-25 Completed [facility] 00:00:00 [facility] Meningococcal 2017-05-25 Completed [facility] Polysaccharide 00:00:00 [place] [facility] (groups A, C, Y and Branc h W-135) conjugate vaccine (MCV4P) Influenza Virus 2017-05-25 Completed [facility] Vaccine Quad IM 3+ 00:00:00 [facility] Meningococcal B, OMV 2017-05-25 Completed [facility] 00:00:00 [facility] Meningococcal 2017-05-25 Completed [facility] Polysaccharide 00:00:00 [place] [facility] (groups A, C, Y and Branc h W-135) conjugate vaccine (MCV4P) Influenza Virus 2017-05-25 Completed [facility] Vaccine Quad IM 3+ 00:00:00 [facility] Meningococcal B, OMV 2017-05-25 Completed [facility] 00:00:00 [facility] Meningococcal 2017-05-25 Completed [facility] Polysaccharide 00:00:00 [place] [facility] (groups A, C, Y and Branc h W-135) conjugate vaccine (MCV4P) Influenza Virus 2017-05-25 Completed [facility] Vaccine Quad IM 3+ 00:00:00 [facility] Meningococcal B, OMV 2017-05-25 Completed [facility] 00:00:00 [facility] Meningococcal 2017-05-25 Completed [facility] Polysaccharide 00:00:00 [place] [facility] (groups A, C, Y and Branc h W-135) conjugate vaccine (MCV4P) Influenza Virus 2017-05-25 Completed [facility] Vaccine Quad IM 3+ 00:00:00 [facility] Meningococcal B, OMV 2017-05-25 Completed [facility] 00:00:00 [facility] Meningococcal 2017-05-25 Completed [facility] Polysaccharide 00:00:00 [place] [facility] (groups A, C, Y and Branc h W-135) conjugate vaccine (MCV4P) Influenza Virus 2017-05-25 Completed [facility] Vaccine Quad IM 3+ 00:00:00 [facility] Meningococcal B, OMV 2017-05-25 Completed [facility] 00:00:00 [facility] Meningococcal 2017-05-25 Completed [facility] Polysaccharide 00:00:00 [place] [facility] (groups A, C, Y and Branc h W-135) conjugate vaccine (MCV4P) Influenza Virus 2017-05-25 Completed [facility] Vaccine Quad IM 3+ 00:00:00 [facility] Meningococcal B, OMV 2017-05-25 Completed [facility] 00:00:00 [facility] Meningococcal 2017-05-25 Completed [facility] Polysaccharide 00:00:00 [place] [facility] (groups A, C, Y and Branc h W-135) conjugate vaccine (MCV4P) Influenza Virus 2017-05-25 Completed [facility] Vaccine Quad IM 3+ 00:00:00 [facility] Meningococcal B, OMV 2017-05-25 Completed [facility] 00:00:00 [facility] Meningococcal 2017-05-25 Completed [facility] Polysaccharide 00:00:00 [place] [facility] (groups A, C, Y and Branc h W-135) conjugate vaccine (MCV4P) Influenza Virus 2017-05-25 Completed [facility] Vaccine Quad IM 3+ 00:00:00 [facility] Meningococcal B, OMV 2017-05-25 Completed [facility] 00:00:00 [facility] Meningococcal 2017-05-25 Completed [facility] Polysaccharide 00:00:00 [place] [facility] (groups A, C, Y and Branc h W-135) conjugate vaccine (MCV4P) Influenza Virus 2017-05-25 Completed [facility] Vaccine Quad IM 3+ 00:00:00 [facility] Meningococcal B, OMV 2017-05-25 Completed [facility] 00:00:00 [facility] Meningococcal 2017-05-25 Completed [facility] Polysaccharide 00:00:00 [place] [facility] (groups A, C, Y and Branc h W-135) conjugate vaccine (MCV4P) Influenza Virus 2017-05-25 Completed [facility] Vaccine Quad IM 3+ 00:00:00 [facility] Meningococcal B, OMV 2017-05-25 Completed [facility] 00:00:00 [facility] Meningococcal 2017-05-25 Completed [facility] Polysaccharide 00:00:00 [place] [facility] (groups A, C, Y and Branc h W-135) conjugate vaccine (MCV4P) Influenza Virus 2017-05-25 Completed [facility] Vaccine Quad IM 3+ 00:00:00 [facility] Meningococcal B, OMV 2017-05-25 Completed [facility] 00:00:00 [facility] Meningococcal 2017-05-25 Completed [facility] Polysaccharide 00:00:00 [place] [facility] (groups A, C, Y and Branc h W-135) conjugate vaccine (MCV4P) Influenza Virus 2017-05-25 Completed [facility] Vaccine Quad IM 3+ 00:00:00 [facility] Meningococcal B, OMV 2017-05-25 Completed [facility] 00:00:00 [facility] Meningococcal 2017-05-25 Completed [facility] Polysaccharide 00:00:00 [place] [facility] (groups A, C, Y and Branc h W-135) conjugate vaccine (MCV4P) Influenza Virus 2017-05-25 Completed [facility] Vaccine Quad IM 3+ 00:00:00 [facility] Meningococcal B, OMV 2017-05-25 Completed [facility] 00:00:00 [facility] Meningococcal 2017-05-25 Completed [facility] Polysaccharide 00:00:00 [place] [facility] (groups A, C, Y and Branc h W-135) conjugate vaccine (MCV4P) Influenza Virus 2017-05-25 Completed [facility] Vaccine Quad IM 3+ 00:00:00 [facility] Meningococcal B, OMV 2017-05-25 Completed [facility] 00:00:00 [facility] Meningococcal 2017-05-25 Completed [facility] Polysaccharide 00:00:00 [place] [facility] (groups A, C, Y and Branc h W-135) conjugate vaccine (MCV4P) Influenza Virus 2017-05-25 Completed [facility] Vaccine Quad IM 3+ 00:00:00 [facility] Meningococcal B, OMV 2017-05-25 Completed [facility] 00:00:00 [facility] TDAP 2016-09-10 Completed [facility] 00:00:00 [facility] HPV9 2016-09-10 Completed [facility] 00:00:00 [facility] Meningococcal 2016-09-10 Completed [facility] Polysaccharide 00:00:00 [place] [facility] (groups A, C, Y and Branc h W-135) conjugate vaccine (MCV4P) TDAP 2016-09-10 Completed [facility] 00:00:00 [facility] HPV9 2016-09-10 Completed [facility] 00:00:00 [facility] Meningococcal 2016-09-10 Completed [facility] Polysaccharide 00:00:00 [place] [facility] (groups A, C, Y and Branc h W-135) conjugate vaccine (MCV4P) TDAP 2016-09-10 Completed [facility] 00:00:00 [facility] HPV9 2016-09-10 Completed [facility] 00:00:00 [facility] Meningococcal 2016-09-10 Completed [facility] Polysaccharide 00:00:00 [place] [facility] (groups A, C, Y and Branc h W-135) conjugate vaccine (MCV4P) TDAP 2016-09-10 Completed [facility] 00:00:00 [facility] HPV9 2016-09-10 Completed [facility] 00:00:00 [facility] Meningococcal 2016-09-10 Completed [facility] Polysaccharide 00:00:00 [place] [facility] (groups A, C, Y and Branc h W-135) conjugate vaccine (MCV4P) TDAP 2016-09-10 Completed [facility] 00:00:00 [facility] HPV9 2016-09-10 Completed [facility] 00:00:00 [facility] Meningococcal 2016-09-10 Completed [facility] Polysaccharide 00:00:00 [place] [facility] (groups A, C, Y and Branc h W-135) conjugate vaccine (MCV4P) TDAP 2016-09-10 Completed [facility] 00:00:00 [facility] HPV9 2016-09-10 Completed [facility] 00:00:00 [facility] Meningococcal 2016-09-10 Completed [facility] Polysaccharide 00:00:00 [place] [facility] (groups A, C, Y and Branc h W-135) conjugate vaccine (MCV4P) TDAP 2016-09-10 Completed [facility] 00:00:00 [facility] HPV9 2016-09-10 Completed [facility] 00:00:00 [facility] Meningococcal 2016-09-10 Completed [facility] Polysaccharide 00:00:00 [place] [facility] (groups A, C, Y and Branc h W-135) conjugate vaccine (MCV4P) TDAP 2016-09-10 Completed [facility] 00:00:00 [facility] HPV9 2016-09-10 Completed [facility] 00:00:00 [facility] Meningococcal 2016-09-10 Completed [facility] Polysaccharide 00:00:00 [place] [facility] (groups A, C, Y and Branc h W-135) conjugate vaccine (MCV4P) TDAP 2016-09-10 Completed [facility] 00:00:00 [facility] HPV9 2016-09-10 Completed [facility] 00:00:00 [facility] Meningococcal 2016-09-10 Completed [facility] Polysaccharide 00:00:00 [place] [facility] (groups A, C, Y and Branc h W-135) conjugate vaccine (MCV4P) TDAP 2016-09-10 Completed [facility] 00:00:00 [facility] HPV9 2016-09-10 Completed [facility] 00:00:00 [facility] Meningococcal 2016-09-10 Completed [facility] Polysaccharide 00:00:00 [place] [facility] (groups A, C, Y and Branc h W-135) conjugate vaccine (MCV4P) Tdap 2016-09-10 Completed [facility] 00:00:00 [facility] HPV9 2016-09-10 Completed [facility] 00:00:00 [facility] Meningococcal 2016-09-10 Completed [facility] Polysaccharide 00:00:00 [place] [facility] (groups A, C, Y and Branc h W-135) conjugate vaccine (MCV4P) TDAP 2016-09-10 Completed [facility] 00:00:00 [facility] HPV9 2016-09-10 Completed [facility] 00:00:00 [facility] Meningococcal 2016-09-10 Completed [facility] Polysaccharide 00:00:00 [place] [facility] (groups A, C, Y and Branc h W-135) conjugate vaccine (MCV4P) TDAP 2016-09-10 Completed [facility] 00:00:00 [facility] HPV9 2016-09-10 Completed [facility] 00:00:00 [facility] Meningococcal 2016-09-10 Completed [facility] Polysaccharide 00:00:00 [place] [facility] (groups A, C, Y and Branc h W-135) conjugate vaccine (MCV4P) TDAP 2016-09-10 Completed [facility] 00:00:00 [facility] HPV9 2016-09-10 Completed [facility] 00:00:00 [facility] Meningococcal 2016-09-10 Completed [facility] Polysaccharide 00:00:00 [place] [facility] (groups A, C, Y and Branc h W-135) conjugate vaccine (MCV4P) TDAP 2016-09-10 Completed [facility] 00:00:00 [facility] HPV9 2016-09-10 Completed [facility] 00:00:00 [facility] Meningococcal 2016-09-10 Completed [facility] Polysaccharide 00:00:00 [place] [facility] (groups A, C, Y and Branc h W-135) conjugate vaccine (MCV4P) TDAP 2016-09-10 Completed [facility] 00:00:00 [facility] HPV9 2016-09-10 Completed [facility] 00:00:00 [facility] Meningococcal 2016-09-10 Completed [facility] Polysaccharide 00:00:00 [place] [facility] (groups A, C, Y and Branc h W-135) conjugate vaccine (MCV4P) TDAP 2016-09-10 Completed [facility] 00:00:00 [facility] HPV9 2016-09-10 Completed [facility] 00:00:00 [facility] Meningococcal 2016-09-10 Completed [facility] Polysaccharide 00:00:00 [place] [facility] (groups A, C, Y and Branc h W-135) conjugate vaccine (MCV4P) TDAP 2016-09-10 Completed [facility] 00:00:00 [facility] HPV9 2016-09-10 Completed [facility] 00:00:00 [facility] Meningococcal 2016-09-10 Completed [facility] Polysaccharide 00:00:00 [place] [facility] (groups A, C, Y and Branc h W-135) conjugate vaccine (MCV4P) TDAP 2016-09-10 Completed [facility] 00:00:00 [facility] HPV9 2016-09-10 Completed [facility] 00:00:00 [facility] Meningococcal 2016-09-10 Completed [facility] Polysaccharide 00:00:00 [place] [facility] (groups A, C, Y and Branc h W-135) conjugate vaccine (MCV4P) TDAP 2016-09-10 Completed [facility] 00:00:00 [facility] HPV9 2016-09-10 Completed [facility] 00:00:00 [facility] Meningococcal 2016-09-10 Completed [facility] Polysaccharide 00:00:00 [place] [facility] (groups A, C, Y and Branc h W-135) conjugate vaccine (MCV4P) TDAP 2016-09-10 Completed [facility] 00:00:00 [facility] HPV9 2016-09-10 Completed [facility] 00:00:00 [facility] Meningococcal 2016-09-10 Completed [facility] Polysaccharide 00:00:00 [place] [facility] (groups A, C, Y and Branc h W-135) conjugate vaccine (MCV4P) HPV9 2016-09-10 Completed [facility] 00:00:00 [facility] Meningococcal 2016-09-10 Completed [facility] Polysaccharide 00:00:00 [place] [facility] (groups A, C, Y and Branc h W-135) conjugate vaccine (MCV4P) TDAP 2016-09-10 Completed [facility] 00:00:00 [facility] Tdap 2016-09-10 Completed [facility] 00:00:00 [facility] HPV9 2016-09-10 Completed [facility] 00:00:00 [facility] Meningococcal 2016-09-10 Completed [facility] Polysaccharide 00:00:00 [place] [facility] (groups A, C, Y and Branc h W-135) conjugate vaccine (MCV4P) TDAP 2016-09-10 Completed [facility] 00:00:00 [facility] HPV9 2016-09-10 Completed [facility] 00:00:00 [facility] Meningococcal 2016-09-10 Completed [facility] Polysaccharide 00:00:00 [place] [facility] (groups A, C, Y and Branc h W-135) conjugate vaccine (MCV4P) TDAP 2016-09-10 Completed [facility] 00:00:00 [facility] HPV9 2016-09-10 Completed [facility] 00:00:00 [facility] Meningococcal 2016-09-10 Completed [facility] Polysaccharide 00:00:00 [place] [facility] (groups A, C, Y and Branc h W-135) conjugate vaccine (MCV4P) TDAP 2016-09-10 Completed [facility] 00:00:00 [facility] HPV9 2016-09-10 Completed [facility] 00:00:00 [facility] Meningococcal 2016-09-10 Completed [facility] Polysaccharide 00:00:00 [place] [facility] (groups A, C, Y and Branc h W-135) conjugate vaccine (MCV4P) TDAP 2016-09-10 Completed [facility] 00:00:00 [facility] HPV9 2016-09-10 Completed [facility] 00:00:00 [facility] Meningococcal 2016-09-10 Completed [facility] Polysaccharide 00:00:00 [place] [facility] (groups A, C, Y and Branc h W-135) conjugate vaccine (MCV4P) TDAP 2016-09-10 Completed [facility] 00:00:00 [facility] HPV9 2016-09-10 Completed [facility] 00:00:00 [facility] Meningococcal 2016-09-10 Completed [facility] Polysaccharide 00:00:00 [place] [facility] (groups A, C, Y and Branc h W-135) conjugate vaccine (MCV4P) TDAP 2016-09-10 Completed [facility] 00:00:00 [facility] HPV9 2016-09-10 Completed [facility] 00:00:00 [facility] Meningococcal 2016-09-10 Completed [facility] Polysaccharide 00:00:00 [place] [facility] (groups A, C, Y and Branc h W-135) conjugate vaccine (MCV4P) TDAP 2016-09-10 Completed [facility] 00:00:00 [facility] HPV9 2016-09-10 Completed [facility] 00:00:00 [facility] Meningococcal 2016-09-10 Completed [facility] Polysaccharide 00:00:00 [place] [facility] (groups A, C, Y and Branc h W-135) conjugate vaccine (MCV4P) TDAP 2016-09-10 Completed [facility] 00:00:00 [facility] HPV9 2016-09-10 Completed [facility] 00:00:00 [facility] Meningococcal 2016-09-10 Completed [facility] Polysaccharide 00:00:00 [place] [facility] (groups A, C, Y and Branc h W-135) conjugate vaccine (MCV4P) HPV9 2016-09-10 Completed [facility] 00:00:00 [facility] Tdap 2016-09-10 Completed [facility] 00:00:00 [facility] Meningococcal 2016-09-10 Completed [facility] Polysaccharide 00:00:00 [place] [facility] (groups A, C, Y and Branc h W-135) conjugate vaccine (MCV4P) TDAP 2016-09-10 Completed [facility] 00:00:00 [facility] HPV9 2016-09-10 Completed [facility] 00:00:00 [facility] Meningococcal 2016-09-10 Completed [facility] Polysaccharide 00:00:00 [place] [facility] (groups A, C, Y and Branc h W-135) conjugate vaccine (MCV4P) TDAP 2016-09-10 Completed [facility] 00:00:00 [facility] HPV9 2016-09-10 Completed [facility] 00:00:00 [facility] Meningococcal 2016-09-10 Completed [facility] Polysaccharide 00:00:00 [place] [facility] (groups A, C, Y and Branc h W-135) conjugate vaccine (MCV4P) TDAP 2016-09-10 Completed [facility] 00:00:00 [facility] HPV9 2016-09-10 Completed [facility] 00:00:00 [facility] Meningococcal 2016-09-10 Completed [facility] Polysaccharide 00:00:00 [place] [facility] (groups A, C, Y and Branc h W-135) conjugate vaccine (MCV4P) TDAP 2016-09-10 Completed [facility] 00:00:00 [facility] HPV9 2016-09-10 Completed [facility] 00:00:00 [facility] Meningococcal 2016-09-10 Completed [facility] Polysaccharide 00:00:00 [place] [facility] (groups A, C, Y and Branc h W-135) conjugate vaccine (MCV4P) TDAP 2016-09-10 Completed [facility] 00:00:00 [facility] HPV9 2016-09-10 Completed [facility] 00:00:00 [facility] Meningococcal 2016-09-10 Completed [facility] Polysaccharide 00:00:00 [place] [facility] (groups A, C, Y and Branc h W-135) conjugate vaccine (MCV4P) Tdap 2016-09-10 Completed [facility] 00:00:00 [facility] HPV9 2016-09-10 Completed [facility] 00:00:00 [facility] Meningococcal 2016-09-10 Completed [facility] Polysaccharide 00:00:00 [place] [facility] (groups A, C, Y and Branc h W-135) conjugate vaccine (MCV4P) Tdap 2016-09-10 Completed [facility] 00:00:00 [facility] HPV9 2016-09-10 Completed [facility] 00:00:00 [facility] Meningococcal 2016-09-10 Completed [facility] Polysaccharide 00:00:00 [place] [facility] (groups A, C, Y and Branc h W-135) conjugate vaccine (MCV4P) Tdap 2016-09-10 Completed [facility] 00:00:00 [facility] HPV9 2016-09-10 Completed [facility] 00:00:00 [facility] Meningococcal 2016-09-10 Completed [facility] Polysaccharide 00:00:00 [place] [facility] (groups A, C, Y and Branc h W-135) conjugate vaccine (MCV4P) TDAP 2016-09-10 Completed [facility] 00:00:00 [facility] HPV9 2016-09-10 Completed [facility] 00:00:00 [facility] Meningococcal 2016-09-10 Completed [facility] Polysaccharide 00:00:00 [place] [facility] (groups A, C, Y and Branc h W-135) conjugate vaccine (MCV4P) TDAP 2016-09-10 Completed [facility] 00:00:00 [facility] HPV9 2016-09-10 Completed [facility] 00:00:00 [facility] Meningococcal 2016-09-10 Completed [facility] Polysaccharide 00:00:00 [place] [facility] (groups A, C, Y and Branc h W-135) conjugate vaccine (MCV4P) TDAP 2016-09-10 Completed [facility] 00:00:00 [facility] HPV9 2016-09-10 Completed [facility] 00:00:00 [facility] Meningococcal 2016-09-10 Completed [facility] Polysaccharide 00:00:00 [place] [facility] (groups A, C, Y and Branc h W-135) conjugate vaccine (MCV4P) TDAP 2016-09-10 Completed [facility] 00:00:00 [facility] HPV9 2016-09-10 Completed [facility] 00:00:00 [facility] Meningococcal 2016-09-10 Completed [facility] Polysaccharide 00:00:00 [place] [facility] (groups A, C, Y and Branc h W-135) conjugate vaccine (MCV4P) TDAP 2016-09-10 Completed [facility] 00:00:00 [facility] HPV9 2016-09-10 Completed [facility] 00:[facility]00 [facility] Meningococcal 2016-09-10 Completed [facility] Polysaccharide 00:00:00 [place] [facility] (groups A, C, Y and Branc h W-135) conjugate vaccine (MCV4P) TDAP 2016-09-10 Completed [facility] 00:00:00 [facility] HPV9 2016-09-10 Completed [facility] 00:00:00 [facility] Meningococcal 2016-09-10 Completed [facility] Polysaccharide 00:00:00 [place] [facility] (groups A, C, Y and Branc h W-135) conjugate vaccine (MCV4P) TDAP 2016-09-10 Completed [facility] 00:00:00 [facility] HPV9 2016-09-10 Completed [facility] 00:00:00 [facility] Meningococcal 2016-09-10 Completed [facility] Polysaccharide 00:00:00 [place] [facility] (groups A, C, Y and Branc h W-135) conjugate vaccine (MCV4P) TDAP 2016-09-10 Completed [facility] 00:00:00 [facility] HPV9 2016-09-10 Completed [facility] 00:00:00 [facility] Meningococcal 2016-09-10 Completed [facility] Polysaccharide 00:00:00 [place] [facility] (groups A, C, Y and Branc h W-135) conjugate vaccine (MCV4P) TDAP 2016-09-10 Completed [facility] 00:00:00 [facility] HPV9 2016-09-10 Completed [facility] 00:00:00 [facility] Meningococcal 2016-09-10 Completed [facility] Polysaccharide 00:00:00 [place] [facility] (groups A, C, Y and Branc h W-135) conjugate vaccine (MCV4P) TDAP 2016-09-10 Completed [facility] 00:00:00 [facility] HPV9 2016-09-10 Completed [facility] 00:00:00 [facility] Meningococcal 2016-09-10 Completed [facility] Polysaccharide 00:00:00 [place] [facility] (groups A, C, Y and Branc h W-135) conjugate vaccine (MCV4P) HPV 2010-03-03 Completed [facility] 00:00:00 [facility] Influenza Virus 2010-03-03 Completed [facility] Vaccine 00:00:00 [facility] HPV 2010-03-03 Completed [facility] 00:00:00 [facility] Influenza Virus 2010-03-03 Completed [facility] Vaccine 00:00:00 [facility] HPV 2010-03-03 Completed [facility] 00:00:00 [facility] Influenza Virus 2010-03-03 Completed [facility] Vaccine 00:00:00 [facility] HPV 2010-03-03 Completed [facility] 00:00:00 [facility] Influenza Virus 2010-03-03 Completed [facility] Vaccine 00:00:00 [facility] HPV 2010-03-03 Completed [facility] 00:00:00 [facility] Influenza Virus 2010-03-03 Completed [facility] Vaccine 00:00:00 [facility] HPV 2010-03-03 Completed [facility] 00:00:00 [facility] Influenza Virus 2010-03-03 Completed [facility] Vaccine 00:00:00 [facility] HPV 2010-03-03 Completed [facility] 00:00:00 [facility] Influenza Virus 2010-03-03 Completed [facility] Vaccine 00:00:00 [facility] HPV 2010-03-03 Completed [facility] 00:00:00 [facility] Influenza Virus 2010-03-03 Completed [facility] Vaccine 00:00:00 [facility] HPV 2010-03-03 Completed [facility] 00:00:00 [facility] Influenza Virus 2010-03-03 Completed [facility] Vaccine 00:00:00 [facility] HPV 2010-03-03 Completed [facility] 00:00:00 [facility] HPV 2010-03-03 Completed [facility] 00:00:00 [facility] Influenza Virus 2010-03-03 Completed [facility] Vaccine 00:00:00 [facility] Influenza Virus 2010-03-03 Completed [facility] Vaccine 00:00:00 [facility] HPV 2010-03-03 Completed [facility] 00:00:00 [facility] Influenza Virus 2010-03-03 Completed [facility] Vaccine 00:00:00 [facility] HPV 2010-03-03 Completed [facility] 00:00:00 [facility] Influenza Virus 2010-03-03 Completed [facility] Vaccine 00:00:00 [facility] HPV 2010-03-03 Completed [facility] 00:00:00 [facility] Influenza Virus 2010-03-03 Completed [facility] Vaccine 00:00:00 [facility] HPV 2010-03-03 Completed [facility] 00:00:00 [facility] Influenza Virus 2010-03-03 Completed [facility] Vaccine 00:00:00 [facility] HPV 2010-03-03 Completed [facility] 00:00:00 [facility] Influenza Virus 2010-03-03 Completed [facility] Vaccine 00:00:00 [facility] HPV 2010-03-03 Completed [facility] 00:00:00 [facility] Influenza Virus 2010-03-03 Completed [facility] Vaccine 00:00:00 [facility] HPV 2010-03-03 Completed [facility] 00:00:00 [facility] Influenza Virus 2010-03-03 Completed [facility] Vaccine 00:00:00 [facility] HPV 2010-03-03 Completed [facility] 00:00:00 [facility] Influenza Virus 2010-03-03 Completed [facility] Vaccine 00:00:00 [facility] HPV 2010-03-03 Completed [facility] 00:00:00 [facility] HPV 2010-03-03 Completed [facility] 00:00:00 [facility] Influenza Virus 2010-03-03 Completed [facility] Vaccine 00:00:00 [facility] Influenza Virus 2010-03-03 Completed [facility] Vaccine 00:00:00 [facility] HPV 2010-03-03 Completed [facility] 00:00:00 [facility] Influenza Virus 2010-03-03 Completed [facility] Vaccine 00:00:00 [facility] HPV 2010-03-03 Completed [facility] 00:00:00 [facility] Influenza Virus 2010-03-03 Completed [facility] Vaccine 00:00:00 [facility] HPV 2010-03-03 Completed [facility] 00:00:00 [facility] Influenza Virus 2010-03-03 Completed [facility] Vaccine 00:00:00 [facility] HPV 2010-03-03 Completed [facility] 00:00:00 [facility] Influenza Virus 2010-03-03 Completed [facility] Vaccine 00:00:00 [facility] HPV 2010-03-03 Completed [facility] 00:00:00 [facility] Influenza Virus 2010-03-03 Completed [facility] Vaccine 00:00:00 [facility] HPV 2010-03-03 Completed [facility] 00:00:00 [facility] Influenza Virus 2010-03-03 Completed [facility] Vaccine 00:00:00 [facility] HPV 2010-03-03 Completed [facility] 00:00:00 [facility] Influenza Virus 2010-03-03 Completed [facility] Vaccine 00:00:00 [facility] HPV 2010-03-03 Completed [facility] 00:00:00 [facility] Influenza Virus 2010-03-03 Completed [facility] Vaccine 00:00:00 [facility] HPV 2010-03-03 Completed [facility] 00:00:00 [facility] Influenza Virus 2010-03-03 Completed [facility] Vaccine 00:00:00 [facility] HPV 2010-03-03 Completed [facility] 00:00:00 [facility] Influenza Virus 2010-03-03 Completed [facility] Vaccine 00:00:00 [facility] HPV 2010-03-03 Completed [facility] 00:00:00 [facility] Influenza Virus 2010-03-03 Completed [facility] Vaccine 00:00:00 [facility] HPV 2010-03-03 Completed [facility] 00:00:00 [facility] Influenza Virus 2010-03-03 Completed [facility] Vaccine 00:00:00 [facility] HPV 2010-03-03 Completed [facility] 00:00:00 [facility] Influenza Virus 2010-03-03 Completed [facility] Vaccine 00:00:00 [facility] HPV 2010-03-03 Completed [facility] 00:00:00 [facility] Influenza Virus 2010-03-03 Completed [facility] Vaccine 00:00:00 [facility] HPV 2010-03-03 Completed [facility] 00:00:00 [facility] Influenza Virus 2010-03-03 Completed [facility] Vaccine 00:00:00 [facility] HPV 2010-03-03 Completed [facility] 00:00:00 [facility] Influenza Virus 2010-03-03 Completed [facility] Vaccine 00:00:00 [facility] HPV 2010-03-03 Completed [facility] 00:00:00 [facility] Influenza Virus 2010-03-03 Completed [facility] Vaccine 00:00:00 [facility] HPV 2010-03-03 Completed [facility] 00:00:00 [facility] Influenza Virus 2010-03-03 Completed [facility] Vaccine 00:00:00 [facility] HPV 2010-03-03 Completed [facility] 00:00:00 [facility] Influenza Virus 2010-03-03 Completed [facility] Vaccine 00:00:00 [facility] HPV 2010-03-03 Completed [facility] 00:00:00 [facility] Influenza Virus 2010-03-03 Completed [facility] Vaccine 00:00:00 [facility] HPV 2010-03-03 Completed [facility] 00:00:00 [facility] Influenza Virus 2010-03-03 Completed [facility] Vaccine 00:00:00 [facility] HPV 2010-03-03 Completed [facility] 00:00:00 [facility] Influenza Virus 2010-03-03 Completed [facility] Vaccine 00:00:00 [facility] HPV 2010-03-03 Completed [facility] 00:00:00 [facility] Influenza Virus 2010-03-03 Completed [facility] Vaccine 00:00:00 [facility] HPV 2010-03-03 Completed [facility] 00:00:00 [facility] Influenza Virus 2010-03-03 Completed [facility] Vaccine 00:00:00 [facility] HPV 2010-03-03 Completed [facility] 00:00:00 [facility] Influenza Virus 2010-03-03 Completed [facility] Vaccine 00:00:00 [facility] HPV 2010-03-03 Completed [facility] 00:00:00 [facility] Influenza Virus 2010-03-03 Completed [facility] Vaccine 00:00:00 [facility] HPV 2010-03-03 Completed [facility] 00:00:00 [facility] Influenza Virus 2010-03-03 Completed [facility] Vaccine 00:00:00 [facility] HPV 2010-03-03 Completed [facility] 00:00:00 [facility] Influenza Virus 2010-03-03 Completed [facility] Vaccine 00:00:00 [facility] HPV 2010-03-03 Completed [facility] 00:00:00 [facility] Influenza Virus 2010-03-03 Completed [facility] Vaccine 00:00:00 [facility] Varicella 2008-11-15 Completed [facility] (varivax)(chicken [...] 2007-06-02 Completed [facility] Vaccine 00:00:00 [facility] Influenza Virus 2007-06-02 Completed [facility] Vaccine 00:00:00 [facility] Influenza Virus 2007-06-02 Completed [facility] Vaccine 00:00:00 [facility] Influenza Virus 2007-06-02 Completed [facility] Vaccine 00:00:00 [facility] Influenza Virus 2007-06-02 Completed [facility] Vaccine 00:00:00 [facility] Influenza Virus 2007-06-02 Completed [facility] Vaccine 00:00:00 [facility] Influenza Virus 2007-06-02 Completed [facility] Vaccine 00:00:00 [facility] Influenza Virus 2007-06-02 Completed [facility] Vaccine 00:00:00 [facility] Influenza Virus 2007-06-02 Completed [facility] Vaccine 00:00:00 [facility] Influenza Virus 2007-06-02 Completed [facility] Vaccine 00:00:00 [facility] Influenza Virus 2007-06-02 Completed [facility] Vaccine 00:00:00 [facility] Influenza Virus 2007-06-02 Completed [facility] Vaccine 00:00:00 [facility] Influenza Virus 2007-06-02 Completed [facility] Vaccine 00:00:00 [facility] Influenza Virus 2007-06-02 Completed [facility] Vaccine 00:00:00 [facility] Influenza Virus 2007-06-02 Completed [facility] Vaccine 00:00:00 [facility] Influenza Virus 2007-06-02 Completed [facility] Vaccine 00:00:00 [facility] Influenza Virus 2007-06-02 Completed [facility] Vaccine 00:00:00 [facility] Influenza Virus 2007-06-02 Completed [facility] Vaccine 00:00:00 [facility] Influenza Virus 2007-06-02 Completed [facility] Vaccine 00:00:00 [facility] Influenza Virus 2007-06-02 Completed [facility] Vaccine 00:00:00 [facility] Influenza Virus 2007-06-02 Completed [facility] Vaccine 00:00:00 [facility] Influenza Virus 2007-06-02 Completed [facility] Vaccine 00:00:00 [facility] Influenza Virus 2007-06-02 Completed [facility] Vaccine 00:00:00 [facility] Influenza Virus 2007-06-02 Completed [facility] Vaccine 00:00:00 [facility] Influenza Virus 2007-06-02 Completed [facility] Vaccine 00:00:00 [facility] Influenza Virus 2007-06-02 Completed [facility] Vaccine 00:00:00 [facility] Influenza Virus 2007-06-02 Completed [facility] Vaccine 00:00:00 [facility] Influenza Virus 2007-06-02 Completed [facility] Vaccine 00:00:00 [facility] Influenza Virus 2007-06-02 Completed [facility] Vaccine 00:00:00 [facility] Influenza Virus 2007-06-02 Completed [facility] Vaccine 00:00:00 [facility] Influenza Virus 2007-06-02 Completed [facility] Vaccine 00:00:00 [facility] Influenza Virus 2007-06-02 Completed [facility] Vaccine 00:00:00 [facility] Influenza Virus 2007-06-02 Completed [facility] Vaccine 00:00:00 [facility] Influenza Virus 2007-06-02 Completed [facility] Vaccine 00:00:00 [facility] Influenza Virus 2007-06-02 Completed [facility] Vaccine 00:00:00 [facility] Influenza Virus 2007-06-02 Completed [facility] Vaccine 00:00:00 [facility] Influenza Virus 2007-06-02 Completed [facility] Vaccine 00:00:00 [facility] Influenza Virus 2007-06-02 Completed [facility] Vaccine 00:00:00 [facility] Influenza Virus 2007-06-02 Completed [facility] Vaccine 00:00:00 [facility] Influenza Virus 2007-06-02 Completed [facility] Vaccine 00:00:00 [facility] Influenza Virus 2007-06-02 Completed [facility] Vaccine 00:00:00 [facility] Influenza Virus 2007-06-02 Completed [facility] Vaccine 00:00:00 [facility] Influenza Virus 2007-06-02 Completed [facility] Vaccine 00:00:00 [facility] Influenza Virus 2007-06-02 Completed [facility] Vaccine 00:00:00 [facility] Influenza Virus 2007-06-02 Completed [facility] Vaccine 00:00:00 [facility] Influenza Virus 2007-06-02 Completed [facility] Vaccine 00:00:00 [facility] Influenza Virus 2007-06-02 Completed [facility] Vaccine 00:00:00 [facility] Influenza Virus 2007-06-02 Completed [facility] Vaccine 00:00:00 [facility] Influenza Virus 2007-06-02 Completed [facility] Vaccine 00:00:00 [facility] Influenza Virus 2007-06-02 Completed [facility] Vaccine 00:00:00 [facility] HEPATITIS A 2005-11-09 Completed [facility] 00:00:00 [facility] HEPATITIS A 2005-11-09 Completed [facility] 00:00:00 [facility] HEPATITIS A 2005-11-09 Completed [facility] 00:00:00 [facility] HEPATITIS A 2005-11-09 Completed [facility] 00:00:00 [facility] HEPATITIS A 2005-11-09 Completed [facility] 00:00:00 [facility] HEPATITIS A 2005-11-09 Completed [facility] 00:00:00 [facility] HEPATITIS A 2005-11-09 Completed [facility] 00:00:00 [facility] HEPATITIS A 2005-11-09 Completed [facility] 00:00:00 [facility] HEPATITIS A 2005-11-09 Completed [facility] 00:00:00 [facility] HEPATITIS A 2005-11-09 Completed [facility] 00:00:00 [facility] HEPATITIS A 2005-11-09 Completed [facility] 00:00:00 [facility] HEPATITIS A 2005-11-09 Completed [facility] 00:00:00 [facility] HEPATITIS A 2005-11-09 Completed [facility] 00:00:00 [facility] HEPATITIS A 2005-11-09 Completed [facility] 00:00:00 [facility] HEPATITIS A 2005-11-09 Completed [facility] 00:00:00 [facility] HEPATITIS A 2005-11-09 Completed [facility] 00:00:00 [facility] HEPATITIS A 2005-11-09 Completed [facility] 00:00:00 [facility] HEPATITIS A 2005-11-09 Completed [facility] 00:00:00 [facility] HEPATITIS A 2005-11-09 Completed [facility] 00:00:00 [facility] HEPATITIS A 2005-11-09 Completed [facility] 00:00:00 [facility] HEPATITIS A 2005-11-09 Completed [facility] 00:00:00 [facility] HEPATITIS A 2005-11-09 Completed [facility] 00:00:00 [facility] HEPATITIS A 2005-11-09 Completed [facility] 00:00:00 [facility] HEPATITIS A 2005-11-09 Completed [facility] 00:00:00 [facility] HEPATITIS A 2005-11-09 Completed [facility] 00:00:00 [facility] HEPATITIS A 2005-11-09 Completed [facility] 00:00:00 [facility] HEPATITIS A 2005-11-09 Completed [facility] 00:00:00 [facility] HEPATITIS A 2005-11-09 Completed [facility] 00:00:00 [facility] HEPATITIS A 2005-11-09 Completed [facility] 00:00:00 [facility] HEPATITIS A 2005-11-09 Completed [facility] 00:00:00 [facility] HEPATITIS A 2005-11-09 Completed [facility] 00:00:00 [facility] HEPATITIS A 2005-11-09 Completed [facility] 00:00:00 [facility] HEPATITIS A 2005-11-09 Completed [facility] 00:00:00 [facility] HEPATITIS A 2005-11-09 Completed [facility] 00:00:00 [facility] HEPATITIS A 2005-11-09 Completed [facility] 00:00:00 [facility] HEPATITIS A 2005-11-09 Completed [facility] 00:00:00 [facility] HEPATITIS A 2005-11-09 Completed [facility] 00:00:00 [facility] HEPATITIS A 2005-11-09 Completed [facility] 00:00:00 [facility] HEPATITIS A 2005-11-09 Completed [facility] 00:00:00 [facility] HEPATITIS A 2005-11-09 Completed [facility] 00:00:00 [facility] HEPATITIS A 2005-11-09 Completed [facility] 00:00:00 [facility] HEPATITIS A 2005-11-09 Completed [facility] 00:00:00 [facility] HEPATITIS A 2005-11-09 Completed [facility] 00:00:00 [facility] HEPATITIS A 2005-11-09 Completed [facility] 00:00:00 [facility] HEPATITIS A 2005-11-09 Completed [facility] 00:00:00 [facility] HEPATITIS A 2005-11-09 Completed [facility] 00:00:00 [facility] HEPATITIS A 2005-11-09 Completed [facility] 00:00:00 [facility] HEPATITIS A 2005-11-09 Completed [facility] 00:00:00 [facility] HEPATITIS A 2005-11-09 Completed [facility] 00:00:00 [facility] HEPATITIS A 2005-11-09 Completed [facility] 00:00:00 [facility] MMR 2005-06-21 Completed [facility] 00:00:00 [facility] DTAP 2005-06-21 Completed [facility] 00:00:00 [facility] MMR 2005-06-21 Completed [facility] 00:00:00 [facility] Polio (IPV/OPV) 2005-06-21 Completed [facility] 00:00:00 [facility] Varicella 2005-06-21 Completed [facility] (varivax)(chicken 00:00:00 [place] [facility] Polio (IPV/OPV) 2005-06-21 Completed [facility] 00:00:00 [facility] Varicella 2005-06-21 Completed [facility] (varivax)(chicken 00:00:00 [place] [facility] DTAP 2005-06-21 Completed [facility] 00:00:00 [facility] MMR 2005-06-21 Completed [facility] 00:00:00 [facility] Polio (IPV/OPV) 2005-06-21 Completed [facility] 00:00:00 [facility] Varicella 2005-06-21 Completed [facility] (varivax)(chicken 00:00:00 [place] [facility] DTAP 2005-06-21 Completed [facility] 00:00:00 [facility] MMR 2005-06-21 Completed [facility] 00:00:00 [facility] Polio (IPV/OPV) 2005-06-21 Completed [facility] 00:00:00 [facility] Varicella 2005-06-21 Completed [facility] (varivax)(chicken 00:00:00 [place] [facility] DTAP 2005-06-21 Completed [facility] 00:00:00 [facility] MMR 2005-06-21 Completed [facility] 00:00:00 [facility] Polio (IPV/OPV) 2005-06-21 Completed [facility] 00:00:00 [facility] Varicella 2005-06-21 Completed [facility] (varivax)(chicken 00:00:00 [place] [facility] DTAP 2005-06-21 Completed [facility] 00:00:00 [facility] MMR 2005-06-21 Completed [facility] 00:00:00 [facility] Polio (IPV/OPV) 2005-06-21 Completed [facility] 00:00:00 [facility] Varicella 2005-06-21 Completed [facility] (varivax)(chicken 00:00:00 [place] [facility] DTAP 2005-06-21 Completed [facility] 00:00:00 [facility] MMR 2005-06-21 Completed [facility] 00:00:00 [facility] Polio (IPV/OPV) 2005-06-21 Completed [facility] 00:00:00 [facility] Varicella 2005-06-21 Completed [facility] (varivax)(chicken 00:00:00 [place] [facility] DTAP 2005-06-21 Completed [facility] 00:00:00 [facility] MMR 2005-06-21 Completed [facility] 00:00:00 [facility] Polio (IPV/OPV) 2005-06-21 Completed [facility] 00:00:00 [facility] Varicella 2005-06-21 Completed [facility] (varivax)(chicken 00:00:00 [place] [facility] DTAP 2005-06-21 Completed [facility] 00:00:00 [facility] DTAP 2005-06-21 Completed [facility] 00:00:00 [facility] MMR 2005-06-21 Completed [facility] 00:00:00 [facility] Polio (IPV/OPV) 2005-06-21 Completed [facility] 00:00:00 [facility] Varicella 2005-06-21 Completed [facility] (varivax)(chicken 00:00:00 [place] [facility] DTAP 2005-06-21 Completed [facility] 00:00:00 [facility] MMR 2005-06-21 Completed [facility] 00:00:00 [facility] Polio (IPV/OPV) 2005-06-21 Completed [facility] 00:00:00 [facility] Varicella 2005-06-21 Completed [facility] (varivax)(chicken 00:00:00 [place] [facility] DTAP 2005-06-21 Completed [facility] 00:00:00 [facility] MMR 2005-06-21 Completed [facility] 00:00:00 [facility] Polio (IPV/OPV) 2005-06-21 Completed [facility] 00:00:00 [facility] Varicella 2005-06-21 Completed [facility] (varivax)(chicken 00:00:00 [place] [facility] DTAP 2005-06-21 Completed [facility] 00:00:00 [facility] MMR 2005-06-21 Completed [facility] 00:00:00 [facility] MMR 2005-06-21 Completed [facility] 00:00:00 [facility] Polio (IPV/OPV) 2005-06-21 Completed [facility] 00:00:00 [facility] Varicella 2005-06-21 Completed [facility] (varivax)(chicken 00:00:00 [place] [facility] DTAP 2005-06-21 Completed [facility] 00:00:00 [facility] Polio (IPV/OPV) 2005-06-21 Completed [facility] 00:00:00 [facility] MMR 2005-06-21 Completed [facility] [facility] Polio (IPV/OPV) 2005-06-21 Completed [facility]00 [facility] Varicella 2005-06-21 Completed [facility] (varivax)(chicken 00:00:00 [place] [facility] Varicella 2005-06-21 Completed [facility] (varivax)(chicken 00:00:00 [place] [facility] DTAP 2005-06-21 Completed [facility] 00:00:00 [facility] MMR 2005-06-21 Completed [facility] 00:00:00 [facility] Polio (IPV/OPV) 2005-06-21 Completed [facility] 00:[facility]:00 [facility] Varicella 2005-06-21 Completed [facility] (varivax)(chicken 00:00:00 [place] [facility] DTAP 2005-06-21 Completed [facility] 00:00:00 [facility] MMR 2005-06-21 Completed [facility] 00:00:00 [facility] Polio (IPV/OPV) 2005-06-21 Completed [facility] 00:[facility]:00 [facility] Varicella 2005-06-21 Completed [facility] (varivax)(chicken 00:00:00 [place] [facility] DTAP 2005-06-21 Completed [facility] 00:00:00 [facility] MMR 2005-06-21 Completed [facility] 00:00:00 [facility] Polio (IPV/OPV) 2005-06-21 Completed [facility] 00:00:00 [facility] Varicella 2005-06-21 Completed [facility] (varivax)(chicken 00:00:00 [place] [facility] DTAP 2005-06-21 Completed [facility] 00:00:00 [facility] MMR 2005-06-21 Completed [facility] 00:00:00 [facility] Polio (IPV/OPV) 2005-06-21 Completed [facility] 00:00:00 [facility] Varicella 2005-06-21 Completed [facility] (varivax)(chicken 00:00:00 [place] [facility] pox[facility] DTAP 2005-06-21 Completed [facility] 00:00:00 [facility] DTAP 2005-06-21 Completed [facility] 00:00:00 [facility] MMR 2005-06-21 Completed [facility] 00:00:00 [facility] Polio (IPV/OPV) 2005-06-21 Completed [facility] 00:00:00 [facility] Varicella 2005-06-21 Completed [facility] (varivax)(chicken 00:00:00 [place] [facility] DTAP 2005-06-21 Completed [facility] 00:00:00 [facility] MMR 2005-06-21 Completed [facility] 00:00:00 [facility] Polio (IPV/OPV) 2005-06-21 Completed [facility] 00:00:00 [facility] Varicella 2005-06-21 Completed [facility] (varivax)(chicken 00:00:00 [place] [facility] DTAP 2005-06-21 Completed [facility] 00:00:00 [facility] MMR 2005-06-21 Completed [facility] 00:00:00 [facility] Polio (IPV/OPV) 2005-06-21 Completed [facility] 00:00:00 [facility] Varicella 2005-06-21 Completed [facility] (varivax)(chicken 00:00:00 [place] [facility] pox[facility] MMR 2005-06-21 Completed [facility] 00:00:00 [facility] DTAP 2005-06-21 Completed [facility] 00:00:00 [facility] MMR 2005-06-21 Completed [facility] 00:00:00 [facility] Polio (IPV/OPV) 2005-06-21 Completed [facility] 00:00:00 [facility] Varicella 2005-06-21 Completed [facility] (varivax)(chicken 00:00:00 [place] [facility]ox[facility] DTAP 2005-06-21 Completed [facility] 00:00:00 [facility] Polio (IPV/OPV) 2005-06-21 Completed [facility] 00:00:00 [facility] Varicella 2005-06-21 Completed [facility] (varivax)(chicken 00:00:00 [place] [facility] p[facility] MMR 2005-06-21 Completed [facility] 00:00:00 [facility] Polio (IPV/OPV) 2005-06-21 Completed [facility] 00:00:00 [facility] Varicella 2005-06-21 Completed [facility] (varivax)(chicken 00:00:00 [place] [facility] pox[facility] DTAP 2005-06-21 Completed [facility] 00:00:00 [facility] MMR 2005-06-21 Completed [facility] 00:00:00 [facility] Polio (IPV/OPV) 2005-06-21 Completed [facility] 00:00:00 [facility] Varicella 2005-06-21 Completed [facility] (varivax)(chicken 00:00:00 [place] [facility] pox[facility] DTAP 2005-06-21 Completed [facility] 00:00:00 [facility] MMR 2005-06-21 Completed [facility] 00:00:00 [facility] Polio (IPV/OPV) 2005-06-21 Completed [facility] 00:00:00 [facility] Varicella 2005-06-21 Completed [facility] (varivax)(chicken 00:00:00 [place] [facility] pox[facility] DTAP 2005-06-21 Completed [facility] 00:00:00 [facility] MMR 2005-06-21 Completed [facility] 00:00:00 [facility] Polio (IPV/OPV) 2005-06-21 Completed [facility] 00:00:00 [facility] Varicella 2005-06-21 Completed [facility] (varivax)(chicken 00:00:00 [place] [facility] pox[facility] DTAP 2005-06-21 Completed [facility] 00:00:00 [facility] MMR 2005-06-21 Completed [facility] 00:00:00 [facility] DTAP 2005-06-21 Completed [facility] 00:00:00 [facility] Polio (IPV/OPV) 2005-06-21 Completed [facility] 00:00:00 [facility] Varicella 2005-06-21 Completed [facility] (varivax)(chicken 00:00:00 [place] [facility] pox[facility] DTAP 2005-06-21 Completed [facility] 00:00:00 [facility] MMR 2005-06-21 Completed [facility] 00:00:00 [facility] Polio (IPV/OPV) 2005-06-21 Completed [facility] 00:00:00 [facility] Varicella 2005-06-21 Completed [facility] (varivax)(chicken 00:00:00 [place] [facility] pox[facility] MMR 2005-06-21 Completed [facility] 00:00:00 [facility] Polio (IPV/OPV) 2005-06-21 Completed [facility] 00:00:00 [facility] Varicella 2005-06-21 Completed [facility] (varivax)(chicken 00:00:00 [place] [facility] pox[facility] DTAP 2005-06-21 Completed [facility] 00:00:00 [facility] MMR 2005-06-21 Completed [facility] 00:00:00 [facility] Polio (IPV/OPV) 2005-06-21 Completed [facility] 00:00:00 [facility] Varicella 2005-06-21 Completed [facility] (varivax)(chicken 00:00:00 [place] [facility] DTAP 2005-06-21 Completed [facility] 00:00:00 [facility] MMR 2005-06-21 Completed [facility] 00:00:00 [facility] Polio (IPV/OPV) 2005-06-21 Completed [facility] 00:00:00 [facility] Varicella 2005-06-21 Completed [facility] (varivax)(chicken 00:00:00 [place] [facility] DTAP 2005-06-21 Completed [facility] 00:00:00 [facility] MMR 2005-06-21 Completed [facility] 00:00:00 [facility] Polio (IPV/OPV) 2005-06-21 Completed [facility] 00:00:00 [facility] Varicella 2005-06-21 Completed [facility] (varivax)(chicken 00:00:00 [place] [facility] DTAP 2005-06-21 Completed [facility] 00:00:00 [facility] MMR 2005-06-21 Completed [facility] 00:00:00 [facility] Polio (IPV/OPV) 2005-06-21 Completed [facility] 00:00:00 [facility] Varicella 2005-06-21 Completed [facility] (varivax)(chicken 00:00:00 [place] [facility] pox[facility] DTAP 2005-06-21 Completed [facility] 00:00:00 [facility] MMR 2005-06-21 Completed [facility] 00:00:00 [facility] Polio (IPV/OPV) 2005-06-21 Completed [facility] 00:00:00 [facility] Varicella 2005-06-21 Completed [facility] (varivax)(chicken 00:00:00 [place] [facility] pox[facility] DTAP 2005-06-21 Completed [facility] 00:00:00 [facility] MMR 2005-06-21 Completed [facility] 00:00:00 [facility] Polio (IPV/OPV) 2005-06-21 Completed [facility] 00:00:00 [facility] Varicella 2005-06-21 Completed [facility] (varivax)(chicken 00:00:00 [place] [facility] pox) [facility] DTAP 2005-06-21 Completed [facility] 00:00:00 [facility] MMR 2005-06-21 Completed [facility] 00:00:00 [facility] Polio (IPV/OPV) 2005-06-21 Completed [facility] 00:00:00 [facility] Varicella 2005-06-21 Completed [facility] (varivax)(chicken 00:00:00 [place] [facility] pox[facility] DTAP 2005-06-21 Completed [facility] 00:00:00 [facility] MMR 2005-06-21 Completed [facility] 00:00:00 [facility] Polio (IPV/OPV) 2005-06-21 Completed [facility] 00:00:00 [facility] Varicella 2005-06-21 Completed [facility] (varivax)(chicken 00:00:00 [place] [facility] pox[facility] DTAP 2005-06-21 Completed [facility] 00:00:00 [facility] MMR 2005-06-21 Completed [facility] 00:00:00 [facility] Polio (IPV/OPV) 2005-06-21 Completed [facility] 00:00:00 [facility] Varicella 2005-06-21 Completed [facility] (varivax)(chicken 00:00:00 [place] [facility] pox[facility] DTAP 2005-06-21 Completed [facility] 00:00:00 [facility] MMR 2005-06-21 Completed [facility] 00:00:00 [facility] Polio (IPV/OPV) 2005-06-21 Completed [facility] 00:00:00 [facility] Varicella 2005-06-21 Completed [facility] (varivax)(chicken 00:00:00 [place] [facility] pox[facility] DTAP 2005-06-21 Completed [facility] 00:00:00 [facility] MMR 2005-06-21 Completed [facility] 00:00:00 [facility] Polio (IPV/OPV) 2005-06-21 Completed [facility] 00:00:00 [facility] Varicella 2005-06-21 Completed [facility] (varivax)(chicken 00:00:00 [facility] edical pox) Branch DTAP 2005-06-21 Completed [facility] 00:00:00 [facility] MMR 2005-06-21 Completed [facility] 00:00:00 [facility] Polio (IPV/OPV) 2005-06-21 Completed [facility] 00:00:00 [facility] Varicella 2005-06-21 Completed [facility] (varivax)(chicken 00:00:00 [place] [facility] pox[facility] DTAP 2005-06-21 Completed [facility] 00:00:00 [facility] MMR 2005-06-21 Completed [facility] 00:00:00 [facility] Polio (IPV/OPV) 2005-06-21 Completed [facility] 00:00:00 [facility] Varicella 2005-06-21 Completed [facility] (varivax)(chicken 00:00:00 [place] [facility] pox[facility] DTAP 2005-06-21 Completed [facility] 00:00:00 [facility] MMR 2005-06-21 Completed [facility] 00:00:00 [facility] Polio (IPV/OPV) 2005-06-21 Completed [facility] 00:00:00 [facility] Varicella 2005-06-21 Completed [facility] (varivax)(chicken 00:00:00 [place] [facility] pox[facility] DTAP 2005-06-21 Completed [facility] 00:00:00 [facility] MMR 2005-06-21 Completed [facility] 00:00:00 [facility] Polio (IPV/OPV) 2005-06-21 Completed [facility] 00:00:00 [facility] Varicella 2005-06-21 Completed [facility] (varivax)(chicken 00:00:00 [place] [facility] pox[facility] DTAP 2005-06-21 Completed [facility] 00:00:00 [facility] MMR 2005-06-21 Completed [facility] 00:00:00 [facility] Polio (IPV/OPV) 2005-06-21 Completed [facility] 00:00:00 [facility] Varicella 2005-06-21 Completed [facility] (varivax)(chicken 00:00:00 [place] [facility] pox[facility] DTAP 2005-06-21 Completed [facility] 00:00:00 [facility] DTAP 2005-06-21 Completed [facility] 00:00:00 [facility] MMR 2005-06-21 Completed [facility] 00:00:00 [facility] Polio (IPV/OPV) 2005-06-21 Completed [facility] 00:00:00 [facility] Varicella 2005-06-21 Completed [facility] (varivax)(chicken 00:00:00 [place] [facility] pox[facility] DTAP 2005-06-21 Completed [facility] 00:00:00 [facility] MMR 2005-06-21 Completed [facility] 00:00:00 [facility] Polio (IPV/OPV) 2005-06-21 Completed [facility] 00:00:00 [facility] Varicella 2005-06-21 Completed [facility] (varivax)(chicken 00:00:00 [place] [facility] pox[facility] DTAP 2005-06-21 Completed [facility] 00:00:00 [facility] MMR 2005-06-21 Completed [facility] 00:00:00 [facility] Polio (IPV/OPV) 2005-06-21 Completed [facility] 00:00:00 [facility] Varicella 2005-06-21 Completed [facility] (varivax)(chicken 00:00:00 [place] [facility] pox[facility] DTAP 2005-06-21 Completed [facility] 00:00:00 [facility] MMR 2005-06-21 Completed [facility] 00:00:00 [facility] Polio (IPV/OPV) 2005-06-21 Completed [facility] 00:00:00 [facility] Varicella 2005-06-21 Completed [facility] (varivax)(chicken 00:00:00 [place] [facility] pox[facility] HEPATITIS A 2005-03-04 Completed [facility] 00:00:00 [facility] HEPATITIS A 2005-03-04 Completed [facility] 00:00:00 [facility] HEPATITIS A 2005-03-04 Completed [facility] 00:00:00 [facility] HEPATITIS A 2005-03-04 Completed [facility] 00:00:00 [facility] HEPATITIS A 2005-03-04 Completed [facility] 00:00:00 [facility] HEPATITIS A 2005-03-04 Completed [facility] 00:00:00 [facility] HEPATITIS A 2005-03-04 Completed [facility] 00:00:00 [facility] HEPATITIS A 2005-03-04 Completed [facility] 00:00:00 [facility] HEPATITIS A 2005-03-04 Completed [facility] 00:00:00 [facility] HEPATITIS A 2005-03-04 Completed [facility] 00:00:00 [facility] HEPATITIS A 2005-03-04 Completed [facility] 00:00:00 [facility] HEPATITIS A 2005-03-04 Completed [facility] 00:00:00 [facility] HEPATITIS A 2005-03-04 Completed [facility] 00:00:00 [facility] HEPATITIS A 2005-03-04 Completed [facility] 00:00:00 [facility] HEPATITIS A 2005-03-04 Completed [facility] 00:00:00 [facility] HEPATITIS A 2005-03-04 Completed [facility] 00:00:00 [facility] HEPATITIS A 2005-03-04 Completed [facility] 00:00:00 [facility] HEPATITIS A 2005-03-04 Completed [facility] 00:00:00 [facility] HEPATITIS A 2005-03-04 Completed [facility] 00:00:00 [facility] HEPATITIS A 2005-03-04 Completed [facility] 00:00:00 [facility] HEPATITIS A 2005-03-04 Completed [facility] 00:00:00 [facility] HEPATITIS A 2005-03-04 Completed [facility] 00:00:00 [facility] HEPATITIS A 2005-03-04 Completed [facility] 00:00:00 [facility] HEPATITIS A 2005-03-04 Completed [facility] 00:00:00 [facility] HEPATITIS A 2005-03-04 Completed [facility] 00:00:00 [facility] HEPATITIS A 2005-03-04 Completed [facility] 00:00:00 [facility] HEPATITIS A 2005-03-04 Completed [facility] 00:00:00 [facility] HEPATITIS A 2005-03-04 Completed [facility] 00:00:00 [facility] HEPATITIS A 2005-03-04 Completed [facility] 00:00:00 [facility] HEPATITIS A 2005-03-04 Completed [facility] 00:00:00 [facility] HEPATITIS A 2005-03-04 Completed [facility] 00:00:00 [facility] HEPATITIS A 2005-03-04 Completed [facility] 00:00:00 [facility] HEPATITIS A 2005-03-04 Completed [facility] 00:00:00 [facility] HEPATITIS A 2005-03-04 Completed [facility] 00:00:00 [facility] HEPATITIS A 2005-03-04 Completed [facility] 00:00:00 [facility] HEPATITIS A 2005-03-04 Completed [facility] 00:00:00 [facility] HEPATITIS A 2005-03-04 Completed [facility] 00:00:00 [facility] HEPATITIS A 2005-03-04 Completed [facility] 00:00:00 [facility] HEPATITIS A 2005-03-04 Completed [facility] 00:00:00 [facility] HEPATITIS A 2005-03-04 Completed [facility] 00:00:00 [facility] HEPATITIS A 2005-03-04 Completed [facility] 00:00:00 [facility] HEPATITIS A 2005-03-04 Completed [facility] 00:00:00 [facility] HEPATITIS A 2005-03-04 Completed [facility] 00:00:00 [facility] HEPATITIS A 2005-03-04 Completed [facility] 00:00:00 [facility] HEPATITIS A 2005-03-04 Completed [facility] 00:00:00 [facility] HEPATITIS A 2005-03-04 Completed [facility] 00:00:00 [facility] HEPATITIS A 2005-03-04 Completed [facility] 00:00:00 [facility] HEPATITIS A 2005-03-04 Completed [facility] 00:00:00 [facility] HEPATITIS A 2005-03-04 Completed [facility] 00:00:00 [facility] HEPATITIS A 2005-03-04 Completed [facility] 00:00:00 [facility] DTAP 2002-05-29 Completed [facility] 00:00:00 [facility] HIB 4 Dose Schedule 2002-05-29 Completed [facility]ive rsity of 00:00:00 [facility] Pneumococcal 7 2002-05-29 Completed [facility] of Conjugate, PCV7 00:00:00 [place] [facility] (Prevnar7) [facility] DTAP 2002-05-29 Completed [facility] 00:00:00 [facility] HIB 4 Dose Schedule 2002-05-29 Completed [facility]ive rsity of 00:00:00 [facility] Pneumococcal 7 2002-05-29 Completed [facility] Conjugate, PCV7 00:00:00 [place] [facility] (Prevnar7) [facility] Pneumococcal 7 2002-05-29 Completed [facility] Conjugate, PCV7 00:00:00 [place] [facility] (Prevnar7) [facility] DTAP 2002-05-29 Completed [facility] 00:00:00 [facility] HIB 4 Dose Schedule 2002-05-29 Completed [facility]ive rsity of 00:00:00 [facility] Pneumococcal 7 2002-05-29 Completed [facility] Conjugate, PCV7 00:00:00 [place] [facility] (Prevnar7) [facility] DTAP 2002-05-29 Completed [facility] 00:00:00 [facility] HIB 4 Dose Schedule 2002-05-29 Completed Unive rsity of 00:00:00 [facility] Pneumococcal 7 2002-05-29 Completed [facility] Conjugate, PCV7 00:00:00 [place] [facility] (Prevnar7) [facility] DTAP 2002-05-29 Completed [facility] 00:00:00 [facility] HIB 4 Dose Schedule 2002-05-29 Completed [facility] rsity of 00:00:00 [facility] Pneumococcal 7 2002-05-29 Completed [facility] Conjugate, PCV7 00:00:00 [place] [facility] (Prevnar7) [facility] DTAP 2002-05-29 Completed [facility] 00:00:00 [facility] HIB 4 Dose Schedule 2002-05-29 Completed [facility] rsity of 00:00:00 [facility] Pneumococcal 7 2002-05-29 Completed [facility] Conjugate, PCV7 00:00:00 [place] [facility] (Prevnar7) [facility] DTAP 2002-05-29 Completed [facility] 00:00:00 [facility] HIB 4 Dose Schedule 2002-05-29 Completed Unive rsity of 00:00:00 [facility] DTAP 2002-05-29 Completed [facility] 00:00:00 [facility] Pneumococcal 7 2002-05-29 Completed [facility] Conjugate, PCV7 00:00:00 [place] [facility] (Prevnar7) [facility] DTAP 2002-05-29 Completed [facility] 00:00:00 [facility] HIB 4 Dose Schedule 2002-05-29 Completed [facility] rs[facility] of 00:00:00 [facility] Pneumococcal 7 2002-05-29 Completed [facility] Conjugate, PCV7 00:00:00 [place] [facility] (Prevnar7) [facility] HIB 4 Dose Schedule 2002-05-29 Completed [facility] rsity of 00:00:00 [facility] DTAP 2002-05-29 Completed [facility] 00:00:00 [facility] HIB 4 Dose Schedule 2002-05-29 Completed [facility] rs[facility] of 00:00:00 [facility] Pneumococcal 7 2002-05-29 Completed [facility] Conjugate, PCV7 00:00:00 [place] [facility] (Prevnar7) [facility] DTAP 2002-05-29 Completed [facility] 00:00:00 [facility] HIB 4 Dose Schedule 2002-05-29 Completed [facility] rs[facility] of 00:00:00 [facility] Pneumococcal 7 2002-05-29 Completed [facility] Conjugate, PCV7 00:00:00 [place] [facility] (Prevnar7) [facility] DTAP 2002-05-29 Completed [facility] 00:00:00 [facility] HIB 4 Dose Schedule 2002-05-29 Completed [facility] rs[facility] of 00:00:00 [facility] Pneumococcal 7 2002-05-29 Completed [facility] Conjugate, PCV7 00:00:00 [place] [facility] (Prevnar7) [facility] DTAP 2002-05-29 Completed [facility] 00:00:00 [facility] HIB 4 Dose Schedule 2002-05-29 Completed [facility] rs[facility] of 00:00:00 [facility] Pneumococcal 7 2002-05-29 Completed [facility] Conjugate, PCV7 00:00:00 [place] [facility] (Prevnar7) [facility] DTAP 2002-05-29 Completed [facility] 00:00:00 [facility] Pneumococcal 7 2002-05-29 Completed [facility] Conjugate, PCV7 00:00:00 [place] [facility] (Prevnar7) [facility] HIB 4 Dose Schedule 2002-05-29 Completed [facility] rs[facility] 00:00:00 [facility] Pneumococcal 7 2002-05-29 Completed [facility] Conjugate, PCV7 00:00:00 [place] [facility] (Prevnar7) [facility] DTAP 2002-05-29 Completed [facility] 00:00:00 [facility] HIB 4 Dose Schedule 2002-05-29 Completed [facility] rs[facility] of 00:00:00 [facility] Pneumococcal 7 2002-05-29 Completed [facility] Conjugate, PCV7 00:00:00 [place] [facility] (Prevnar7) [facility] DTAP 2002-05-29 Completed [facility] 00:00:00 [facility] HIB 4 Dose Schedule 2002-05-29 Completed [facility] 00:00:00 [facility] Pneumococcal 7 2002-05-29 Completed [facility] Conjugate, PCV7 00:00:00 [place] [facility] (Prevnar7) [facility] DTAP 2002-05-29 Completed [facility] 00:00:00 [facility] HIB 4 Dose Schedule 2002-05-29 Completed [facility] 00:00:00 [facility] DTAP 2002-05-29 Completed [facility] 00:00:00 [facility] Pneumococcal 7 2002-05-29 Completed [facility] Conjugate, PCV7 00:00:00 [place] [facility] (Prevnar7) [facility] DTAP 2002-05-29 Completed [facility] 00:00:00 [facility] HIB 4 Dose Schedule 2002-05-29 Completed [facility] 00:00:00 [facility] HIB 4 Dose Schedule 2002-05-29 Completed [facility] 00:00:00 [facility] Pneumococcal 7 2002-05-29 Completed [facility] Conjugate, PCV7 00:00:00 [place] [facility] (Prevnar7) [facility] DTAP 2002-05-29 Completed [facility] 00:00:00 [facility] HIB 4 Dose Schedule 2002-05-29 Completed [facility] rs[facility] 00:00:00 [facility] Pneumococcal 7 2002-05-29 Completed [facility] Conjugate, PCV7 00:00:00 [place] [facility] (Prevnar7) [facility] DTAP 2002-05-29 Completed [facility] 00:00:00 [facility] HIB 4 Dose Schedule 2002-05-29 Completed [facility] 00:00:00 [facility] Pneumococcal 7 2002-05-29 Completed [facility] Conjugate, PCV7 00:00:00 [place] [facility] (Prevnar7) [facility] DTAP 2002-05-29 Completed [facility] 00:00:00 [facility] HIB 4 Dose Schedule 2002-05-29 Completed [facility] 00:00:00 [facility] Pneumococcal 7 2002-05-29 Completed [facility] Conjugate, PCV7 00:00:00 [place] [facility] (Prevnar7) [facility] DTAP 2002-05-29 Completed [facility] 00:00:00 [facility] HIB 4 Dose Schedule 2002-05-29 Completed [facility] 00:00:00 [facility] Pneumococcal 7 2002-05-29 Completed [facility] Conjugate, PCV7 00:00:00 [place] [facility] (Prevnar7) [facility] Pneumococcal 7 2002-05-29 Completed [facility] Conjugate, PCV7 00:00:00 [place] [facility] (Prevnar7) [facility] DTAP 2002-05-29 Completed [facility] 00:00:00 [facility] HIB 4 Dose Schedule 2002-05-29 Completed [facility] 00:00:00 [facility] Pneumococcal 7 2002-05-29 Completed [facility] Conjugate, PCV7 00:00:00 [place] [facility] (Prevnar7) [facility] DTAP 2002-05-29 Completed [facility] 00:00:00 [facility] HIB 4 Dose Schedule 2002-05-29 Completed [facility] 00:00:00 [facility] Pneumococcal 7 2002-05-29 Completed [facility] Conjugate, PCV7 00:00:00 [place] [facility] DTAP 2002-05-29 Completed [facility] 00:00:00 [facility] HIB 4 Dose Schedule 2002-05-29 Completed [facility] 00:00:00 [facility] Pneumococcal 7 2002-05-29 Completed [facility] of Conjugate, PCV7 00:00:00 [facility] (Prevnar7[facility] DTAP 2002-05-29 Completed [facility] 00:00:00 [facility] HIB 4 Dose Schedule 2002-05-29 Completed [facility] 00:00:00 [facility] DTAP 2002-05-29 Completed [facility] 00:00:00 [facility] Pneumococcal 7 2002-05-29 Completed [facility] Conjugate, PCV7 00:00:00 [facility] (Prevnar7[facility] DTAP 2002-05-29 Completed [facility] 00:00:00 [facility] HIB 4 Dose Schedule 2002-05-29 Completed [facility] 00:00:00 [facility] HIB 4 Dose Schedule 2002-05-29 Completed [facility] 00:00:00 [facility] Pneumococcal 7 2002-05-29 Completed [facility] Conjugate, PCV7 00:00:00 [place] [facility] ([facility] Pneumococcal 7 2002-05-29 Completed [facility] Conjugate, PCV7 00:00:00 [facility] (Prevnar7[facility] DTAP 2002-05-29 Completed [facility] 00:00:00 [facility] HIB 4 Dose Schedule 2002-05-29 Completed [facility] 00:00:00 [facility] Pneumococcal 7 2002-05-29 Completed [facility] Conjugate, PCV7 00:00:00 [facility] (Prevnar7[facility] DTAP 2002-05-29 Completed [facility] 00:00:00 [facility] HIB 4 Dose Schedule 2002-05-29 Completed [facility] 00:00:00 [facility] Pneumococcal 7 2002-05-29 Completed [facility] Conjugate, PCV7 00:00:00 [place] [facility] (Prevnar[facility] DTAP 2002-05-29 Completed [facility] 00:00:00 [facility] HIB 4 Dose Schedule 2002-05-29 Completed [facility] 00:00:00 [facility] Pneumococcal 7 2002-05-29 Completed [facility] Conjugate, PCV7 00:00:00 [place] [facility] (Pre[facility]ar7[facility] DTAP 2002-05-29 Completed [facility] 00:00:00 [facility] HIB 4 Dose Schedule 2002-05-29 Completed [facility] 00:00:00 [facility] Pneumococcal 7 2002-05-29 Completed [facility] Conjugate, PCV7 00:00:00 [place] [facility]Pre[facility]ar[facility] DTAP 2002-05-29 Completed [facility] 00:00:00 [facility] HIB 4 Dose Schedule 2002-05-29 Completed [facility] 00:00:00 [facility] Pneumococcal 7 2002-05-29 Completed [facility] Conjugate, PCV7 00:00:00 [place] [facility] (Prevnar7[facility] DTAP 2002-05-29 Completed [facility] 00:00:00 [facility] HIB 4 Dose Schedule 2002-05-29 Completed [facility] 00:00:00 [facility] Pneumococcal 7 2002-05-29 Completed [facility] Conjugate, PCV7 00:00:00 [place] [facility]Pre[facility]ar[facility] DTAP 2002-05-29 Completed [facility] 00:00:00 [facility] HIB 4 Dose Schedule 2002-05-29 Completed [facility] 00:00:00 [facility] Pneumococcal 7 2002-05-29 Completed [facility] Conjugate, PCV7 00:00:00 [place] [facility]Pre[facility]ar7[facility] DTAP 2002-05-29 Completed [facility] 00:00:00 [facility] HIB 4 Dose Schedule 2002-05-29 Completed [facility] 00:00:00 [facility] Pneumococcal 7 2002-05-29 Completed [facility] Conjugate, PCV7 00:00:00 [place] [facility]ar[facility] DTAP 2002-05-29 Completed [facility] 00:00:00 [facility] HIB 4 Dose Schedule 2002-05-29 Completed [facility] 00:00:00 [facility] Pneumococcal 7 2002-05-29 Completed [facility] Conjugate, PCV7 00:00:00 [place] [facility] (Prevnar7[facility] DTAP 2002-05-29 Completed [facility] 00:00:00 [facility] HIB 4 Dose Schedule 2002-05-29 Completed [facility] 00:00:00 [facility] Pneumococcal 7 2002-05-29 Completed [facility] Conjugate, PCV7 00:00:00 [place] [facility] (Prevnar7[facility] DTAP 2002-05-29 Completed [facility] 00:00:00 [facility] HIB 4 Dose Schedule 2002-05-29 Completed [facility] 00:00:00 [facility] Pneumococcal 7 2002-05-29 Completed [facility] Conjugate, PCV7 00:00:00 [place] [facility] (Prevnar7[facility] DTAP 2002-05-29 Completed [facility] 00:00:00 [facility] HIB 4 Dose Schedule 2002-05-29 Completed [facility] 00:00:00 [facility] Pneumococcal 7 2002-05-29 Completed [facility] Conjugate, PCV7 00:00:00 [place] [facility] (Prevnar7[facility] DTAP 2002-05-29 Completed [facility] 00:00:00 [facility] HIB 4 Dose Schedule 2002-05-29 Completed [facility] 00:00:00 [facility] Pneumococcal 7 2002-05-29 Completed [facility] Conjugate, PCV7 00:00:00 [place] [facility] (Prevnar7[facility] DTAP 2002-05-29 Completed [facility] 00:00:00 [facility] HIB 4 Dose Schedule 2002-05-29 Completed [facility] 00:00:00 [facility] Pneumococcal 7 2002-05-29 Completed [facility] Conjugate, PCV7 00:00:00 [place] [facility] (Prevnar7[facility] DTAP 2002-05-29 Completed [facility] 00:00:00 [facility] HIB 4 Dose Schedule 2002-05-29 Completed [facility] 00:00:00 [facility] Pneumococcal 7 2002-05-29 Completed [facility] Conjugate, PCV7 00:00:00 [place] [facility] (Prevnar7[facility] DTAP 2002-05-29 Completed [facility] 00:00:00 [facility] HIB 4 Dose Schedule 2002-05-29 Completed [facility] 00:00:00 [facility] Pneumococcal 7 2002-05-29 Completed [facility] Conjugate, PCV7 00:00:00 [place] [facility] (Prevnar7[facility] DTAP 2002-05-29 Completed [facility] 00:00:00 [facility] DTAP 2002-05-29 Completed [facility] 00:00:00 [facility] HIB 4 Dose Schedule 2002-05-29 Completed [facility] 00:00:00 [facility] Pneumococcal 7 2002-05-29 Completed [facility] Conjugate, PCV7 00:00:00 [place] [facility] (Prevnar7[facility] DTAP 2002-05-29 Completed [facility] 00:00:00 [facility] HIB 4 Dose Schedule 2002-05-29 Completed [facility] 00:00:00 [facility] HIB 4 Dose Schedule 2002-05-29 Completed [facility] 00:00:00 [facility] Pneumococcal 7 2002-05-29 Completed [facility] Conjugate, PCV7 00:00:00 [place] [facility]Prevnar7[facility] DTAP 2002-05-29 Completed [facility] 00:00:00 [facility] HIB 4 Dose Schedule 2002-05-29 Completed [facility] 00:00:00 [facility] Pneumococcal 7 2002-05-29 Completed [facility] Conjugate, PCV7 00:00:00 [place] [facility]Prevnar7[facility] DTAP 2002-05-29 Completed [facility] 00:00:00 [facility] HIB 4 Dose Schedule 2002-05-29 Completed [facility] 00:00:00 [facility] Pneumococcal 7 2002-05-29 Completed [facility] Conjugate, PCV7 00:00:00 [place] [facility] (Prevnar7[facility] DTAP 2002-01-19 Completed [facility] 00:00:00 [facility] HIB 4 Dose Schedule 2002-01-19 Completed [facility] 00:00:00 [facility] MMR 2002-01-19 Completed [facility] 00:00:00 [facility] Polio (IPV/OPV) 2002-01-19 Completed [facility] 00:00:00 [facility] Polio (IPV/OPV) 2002-01-19 Completed [facility] 00:00:00 [facility] DTAP 2002-01-19 Completed [facility] 00:00:00 [facility] HIB 4 Dose Schedule 2002-01-19 Completed [facility] 00:00:00 [facility] MMR 2002-01-19 Completed [facility] 00:00:00 [facility] Polio (IPV/OPV) 2002-01-19 Completed [facility] 00:00:00 [facility] DTAP 2002-01-19 Completed [facility] 00:00:00 [facility] HIB 4 Dose Schedule 2002-01-19 Completed [facility] 00:00:00 [facility] MMR 2002-01-19 Completed [facility] 00:00:00 [facility] Polio (IPV/OPV) 2002-01-19 Completed [facility] 00:00:00 [facility] DTAP 2002-01-19 Completed [facility] 00:00:00 [facility] HIB 4 Dose Schedule 2002-01-19 Completed [facility] 00:00:00 [facility] MMR 2002-01-19 Completed [facility] 00:00:00 [facility] Polio (IPV/OPV) 2002-01-19 Completed [facility] 00:00:00 [facility] DTAP 2002-01-19 Completed [facility] 00:00:00 [facility] HIB 4 Dose Schedule 2002-01-19 Completed [facility] 00:00:00 [facility] MMR 2002-01-19 Completed [facility] 00:00:00 [facility] Polio (IPV/OPV) 2002-01-19 Completed [facility] 00:00:00 [facility] DTAP 2002-01-19 Completed [facility] 00:00:00 [facility] HIB 4 Dose Schedule 2002-01-19 Completed [facility] 00:00:00 [facility] MMR 2002-01-19 Completed [facility] 00:00:00 [facility] Polio (IPV/OPV) 2002-01-19 Completed [facility] 00:00:00 [facility] DTAP 2002-01-19 Completed [facility] 00:00:00 [facility] HIB 4 Dose Schedule 2002-01-19 Completed [facility] 00:00:00 [facility] DTAP 2002-01-19 Completed [facility] 00:00:00 [facility] MMR 2002-01-19 Completed [facility] 00:00:00 [facility] Polio (IPV/OPV) 2002-01-19 Completed [facility] 00:00:00 [facility] DTAP 2002-01-19 Completed [facility] 00:00:00 [facility] HIB 4 Dose Schedule 2002-01-19 Completed [facility] 00:00:00 [facility] MMR 2002-01-19 Completed [facility] 00:00:00 [facility] Polio (IPV/OPV) 2002-01-19 Completed [facility] 00:00:00 [facility] HIB 4 Dose Schedule 2002-01-19 Completed [facility] 00:00:00 [facility] DTAP 2002-01-19 Completed [facility] 00:00:00 [facility] HIB 4 Dose Schedule 2002-01-19 Completed [facility] 00:00:00 [facility] MMR 2002-01-19 Completed [facility] 00:00:00 [facility] Polio (IPV/OPV) 2002-01-19 Completed [facility] 00:00:00 [facility] DTAP 2002-01-19 Completed [facility] 00:00:00 [facility] HIB 4 Dose Schedule 2002-01-19 Completed [facility] 00:00:00 [facility] MMR 2002-01-19 Completed [facility] 00:00:00 [facility] Polio (IPV/OPV) 2002-01-19 Completed [facility] 00:00:00 [facility] DTAP 2002-01-19 Completed [facility] 00:00:00 [facility] MMR 2002-01-19 Completed [facility] 00:00:00 [facility] HIB 4 Dose Schedule 2002-01-19 Completed [facility] 00:00:00 [facility] MMR 2002-01-19 Completed [facility] 00:00:00 [facility] Polio (IPV/OPV) 2002-01-19 Completed [facility] 00:00:00 [facility] DTAP 2002-01-19 Completed [facility] 00:00:00 [facility] Polio (IPV/OPV) 2002-01-19 Completed [facility] 00:00:00 [facility] HIB 4 Dose Schedule 2002-01-19 Completed [facility] 00:00:00 [facility] MMR 2002-01-19 Completed [facility] 00:00:00 [facility] Polio (IPV/OPV) 2002-01-19 Completed [facility] 00:00:00 [facility] DTAP 2002-01-19 Completed [facility] 00:00:00 [facility] HIB 4 Dose Schedule 2002-01-19 Completed [facility] 00:00:00 [facility] MMR 2002-01-19 Completed [facility] 00:00:00 [facility] Polio (IPV/OPV) 2002-01-19 Completed [facility] 00:00:00 [facility] DTAP 2002-01-19 Completed [facility] 00:00:00 [facility] HIB 4 Dose Schedule 2002-01-19 Completed [facility] 00:00:00 [facility] MMR 2002-01-19 Completed [facility] 00:00:00 [facility] Polio (IPV/OPV) 2002-01-19 Completed [facility] 00:00:00 [facility] DTAP 2002-01-19 Completed [facility] 00:00:00 [facility] HIB 4 Dose Schedule 2002-01-19 Completed [facility] 00:00:00 [facility] MMR 2002-01-19 Completed [facility] 00:00:00 [facility] Polio (IPV/OPV) 2002-01-19 Completed [facility] 00:00:00 [facility] DTAP 2002-01-19 Completed [facility] 00:00:00 [facility] DTAP 2002-01-19 Completed [facility] 00:00:00 [facility] HIB 4 Dose Schedule 2002-01-19 Completed [facility] 00:00:00 [facility] MMR 2002-01-19 Completed [facility] 00:00:00 [facility] Polio (IPV/OPV) 2002-01-19 Completed [facility] 00:00:00 [facility] DTAP 2002-01-19 Completed [facility] 00:00:00 [facility] HIB 4 Dose Schedule 2002-01-19 Completed [facility] 00:00:00 [facility] HIB 4 Dose Schedule 2002-01-19 Completed [facility] 00:00:00 [facility] MMR 2002-01-19 Completed [facility] 00:00:00 [facility] Polio (IPV/OPV) 2002-01-19 Completed [facility] 00:00:00 [facility] DTAP 2002-01-19 Completed [facility] 00:00:00 [facility] HIB 4 Dose Schedule 2002-01-19 Completed [facility] 00:00:00 [facility] MMR 2002-01-19 Completed [facility] 00:00:00 [facility] Polio (IPV/OPV) 2002-01-19 Completed [facility] 00:00:00 [facility] DTAP 2002-01-19 Completed [facility] 00:00:00 [facility] HIB 4 Dose Schedule 2002-01-19 Completed [facility] 00:00:00 [facility] MMR 2002-01-19 Completed [facility] 00:00:00 [facility] Polio (IPV/OPV) 2002-01-19 Completed [facility] 00:00:00 [facility] MMR 2002-01-19 Completed [facility] 00:00:00 [facility] DTAP 2002-01-19 Completed [facility] 00:00:00 [facility] HIB 4 Dose Schedule 2002-01-19 Completed [facility] 00:00:00 [facility] MMR 2002-01-19 Completed [facility] 00:00:00 [facility] Polio (IPV/OPV) 2002-01-19 Completed [facility] 00:00:00 [facility] Polio (IPV/OPV) 2002-01-19 Completed [facility] 00:00:00 [facility] DTAP 2002-01-19 Completed [facility] 00:00:00 [facility] HIB 4 Dose Schedule 2002-01-19 Completed [facility] 00:00:00 [facility] MMR 2002-01-19 Completed [facility] 00:00:00 [facility] Polio (IPV/OPV) 2002-01-19 Completed [facility] 00:00:00 [facility] DTAP 2002-01-19 Completed [facility] 00:00:00 [facility] HIB 4 Dose Schedule 2002-01-19 Completed [facility] 00:00:00 [facility] MMR 2002-01-19 Completed [facility] 00:00:00 [facility] Polio (IPV/OPV) 2002-01-19 Completed [facility] 00:00:00 [facility] DTAP 2002-01-19 Completed [facility] 00:00:00 [facility] HIB 4 Dose Schedule 2002-01-19 Completed [facility] 00:00:00 [facility] MMR 2002-01-19 Completed [facility] 00:00:00 [facility] Polio (IPV/OPV) 2002-01-19 Completed [facility] 00:00:00 [facility] DTAP 2002-01-19 Completed [facility] 00:00:00 [facility] HIB 4 Dose Schedule 2002-01-19 Completed [facility] 00:00:00 [facility] MMR 2002-01-19 Completed [facility] 00:00:00 [facility] Polio (IPV/OPV) 2002-01-19 Completed [facility] 00:00:00 [facility] DTAP 2002-01-19 Completed [facility] 00:00:00 [facility] DTAP 2002-01-19 Completed [facility] 00:00:00 [facility] HIB 4 Dose Schedule 2002-01-19 Completed [facility] 00:00:00 [facility] MMR 2002-01-19 Completed [facility] 00:00:00 [facility] Polio (IPV/OPV) 2002-01-19 Completed [facility] 00:00:00 [facility] DTAP 2002-01-19 Completed [facility] 00:00:00 [facility] HIB 4 Dose Schedule 2002-01-19 Completed [facility] 00:00:00 [facility] HIB 4 Dose Schedule 2002-01-19 Completed [facility] 00:00:00 [facility] MMR 2002-01-19 Completed [facility] 00:00:00 [facility] Polio (IPV/OPV) 2002-01-19 Completed [facility] 00:00:00 [facility] MMR 2002-01-19 Completed [facility] 00:00:00 [facility] Polio (IPV/OPV) 2002-01-19 Completed [facility] 00:00:00 [facility] DTAP 2002-01-19 Completed [facility] 00:00:00 [facility] HIB 4 Dose Schedule 2002-01-19 Completed [facility] 00:00:00 [facility] MMR 2002-01-19 Completed [facility] 00:00:00 [facility] Polio (IPV/OPV) 2002-01-19 Completed [facility] 00:00:00 [facility] DTAP 2002-01-19 Completed [facility] 00:00:00 [facility] HIB 4 Dose Schedule 2002-01-19 Completed [facility] 00:00:00 [facility] MMR 2002-01-19 Completed [facility] 00:00:00 [facility] Polio (IPV/OPV) 2002-01-19 Completed [facility] 00:00:00 [facility] DTAP 2002-01-19 Completed [facility] 00:00:00 [facility] HIB 4 Dose Schedule 2002-01-19 Completed [facility] 00:00:00 [facility] MMR 2002-01-19 Completed [facility] 00:00:00 [facility] Polio (IPV/OPV) 2002-01-19 Completed [facility] 00:00:00 [facility] DTAP 2002-01-19 Completed [facility] 00:00:00 [facility] HIB 4 Dose Schedule 2002-01-19 Completed [facility] 00:00:00 [facility] MMR 2002-01-19 Completed [facility] 00:00:00 [facility] Polio (IPV/OPV) 2002-01-19 Completed [facility] 00:00:00 [facility] DTAP 2002-01-19 Completed [facility] 00:00:00 [facility] HIB 4 Dose Schedule 2002-01-19 Completed [facility] 00:00:00 [facility] MMR 2002-01-19 Completed [facility] 00:00:00 [facility] Polio (IPV/OPV) 2002-01-19 Completed [facility] 00:00:00 [facility] DTAP 2002-01-19 Completed [facility] 00:00:00 [facility] HIB 4 Dose Schedule 2002-01-19 Completed [facility] 00:00:00 [facility] MMR 2002-01-19 Completed [facility] 00:00:00 [facility] Polio (IPV/OPV) 2002-01-19 Completed [facility] 00:00:00 [facility] DTAP 2002-01-19 Completed [facility] 00:00:00 [facility] HIB 4 Dose Schedule 2002-01-19 Completed [facility] 00:00:00 [facility] MMR 2002-01-19 Completed [facility] 00:00:00 [facility] Polio (IPV/OPV) 2002-01-19 Completed [facility] 00:00:00 [facility] DTAP 2002-01-19 Completed [facility] 00:00:00 [facility] HIB 4 Dose Schedule 2002-01-19 Completed [facility] 00:00:00 [facility] MMR 2002-01-19 Completed [facility] 00:00:00 [facility] Polio (IPV/OPV) 2002-01-19 Completed [facility] 00:00:00 [facility] DTAP 2002-01-19 Completed [facility] 00:00:00 [facility] HIB 4 Dose Schedule 2002-01-19 Completed [facility] 00:00:00 [facility] MMR 2002-01-19 Completed [facility] 00:00:00 [facility] Polio (IPV/OPV) 2002-01-19 Completed [facility] 00:00:00 [facility] DTAP 2002-01-19 Completed [facility] 00:00:00 [facility] HIB 4 Dose Schedule 2002-01-19 Completed [facility] 00:00:00 [facility] MMR 2002-01-19 Completed [facility] 00:00:00 [facility] Polio (IPV/OPV) 2002-01-19 Completed [facility] 00:00:00 [facility] DTAP 2002-01-19 Completed [facility] 00:00:00 [facility] HIB 4 Dose Schedule 2002-01-19 Completed [facility] 00:00:00 [facility] MMR 2002-01-19 Completed [facility] 00:00:00 [facility] Polio (IPV/OPV) 2002-01-19 Completed [facility] 00:00:00 [facility] DTAP 2002-01-19 Completed [facility] 00:00:00 [facility] HIB 4 Dose Schedule 2002-01-19 Completed [facility] 00:00:00 [facility] MMR 2002-01-19 Completed [facility] 00:00:00 [facility] Polio (IPV/OPV) 2002-01-19 Completed [facility] 00:00:00 [facility] DTAP 2002-01-19 Completed [facility] 00:00:00 [facility] HIB 4 Dose Schedule 2002-01-19 Completed [facility] 00:00:00 [facility] MMR 2002-01-19 Completed [facility] 00:00:00 [facility] Polio (IPV/OPV) 2002-01-19 Completed [facility] 00:00:00 [facility] DTAP 2002-01-19 Completed [facility] 00:00:00 [facility] HIB 4 Dose Schedule 2002-01-19 Completed [facility] 00:00:00 [facility] MMR 2002-01-19 Completed [facility] 00:00:00 [facility] Polio (IPV/OPV) 2002-01-19 Completed [facility] 00:00:00 [facility] DTAP 2002-01-19 Completed [facility] 00:00:00 [facility] HIB 4 Dose Schedule 2002-01-19 Completed [facility] 00:00:00 [facility] MMR 2002-01-19 Completed [facility] 00:00:00 [facility] Polio (IPV/OPV) 2002-01-19 Completed [facility] 00:00:00 [facility] DTAP 2002-01-19 Completed [facility] 00:00:00 [facility] HIB 4 Dose Schedule 2002-01-19 Completed [facility] 00:00:00 [facility] MMR 2002-01-19 Completed [facility] 00:00:00 [facility] DTAP 2002-01-19 Completed [facility] 00:00:00 [facility] Polio (IPV/OPV) 2002-01-19 Completed [facility] 00:00:00 [facility] DTAP 2002-01-19 Completed [facility] 00[facility]00:00 [facility] HIB 4 Dose Schedule 2002-01-19 Completed [facility] 00:00:00 [facility] MMR 2002-01-19 Completed [facility] 00:00:00 [facility] Polio (IPV/OPV) 2002-01-19 Completed [facility] 00:00:00 [facility] HIB 4 Dose Schedule 2002-01-19 Completed [facility] 00:00:00 [facility] DTAP 2002-01-19 Completed [facility] 00:00:00 [facility] HIB 4 Dose Schedule 2002-01-19 Completed [facility] 00:00:00 [facility] MMR 2002-01-19 Completed [facility] 00:00:00 [facility] Polio (IPV/OPV) 2002-01-19 Completed [facility] 00:00:00 [facility] DTAP 2002-01-19 Completed [facility] 00:00:00 [facility] HIB 4 Dose Schedule 2002-01-19 Completed [facility] 00:00:00 [facility] MMR 2002-01-19 Completed [facility] 00:00:00 [facility] Polio (IPV/OPV) 2002-01-19 Completed [facility] 00:00:00 [facility] DTAP 2002-01-19 Completed [facility] 00:00:00 [facility] HIB 4 Dose Schedule 2002-01-19 Completed [facility] 00:00:00 [facility] MMR 2002-01-19 Completed [facility] 00:00:00 [facility] MMR 2002-01-19 Completed [facility] 00:00:00 [facility] Polio (IPV/OPV) 2002-01-19 Completed [facility] 00:00:00 [facility] DTAP 2001 Completed [facility] 00:00:00 [facility] HIB 4 Dose Schedule 2001 [facility]pleted [facility]00 [facility] Polio (IPV/OPV) 2001 [facility]00 [facility] Hep B, Adol or Pedi 2001 Completed [facility] Dosage 00:00:00 [facility] Polio (IPV/OPV) 2001 Completed [facility]00 [facility] DTAP 2001 Completed [facility]00 [facility] HIB 4 Dose Schedule 2001 Completed [facility] 00:00:00 [facility] Hep B, Adol or Pedi 2001 Completed [facility] Dosage 00:00:00 [facility] Polio (IPV/OPV) 2001 Completed [facility]00 [facility] DTAP 2001 Completed [facility]00 [facility] HIB 4 Dose Schedule 2001 Completed [facility] 00:00:00 [facility] Hep B, Adol or Pedi 2001 Completed [facility] Dosage 00:00:00 [facility] Polio (IPV/OPV) 2001 Completed [facility] 00:00:00 [facility] DTAP 2001 Completed [facility] 00[facility]00 [facility] HIB 4 Dose Schedule 2001 Completed [facility] 00:00:00 [facility] Hep B, Adol or Pedi 2001 Completed [facility] Dosage 00[facility]00:00 [facility] Polio (IPV/OPV) 2001 Completed [facility]00 [facility] DTAP 2001 Completed [facility] 00:00:00 [facility] HIB 4 Dose Schedule 2001 Completed [facility] 00:00:00 [facility] Hep B, Adol or Pedi 2001 Completed [facility] Dosage 00:00:00 [facility] Polio (IPV/OPV) 2001 Completed [facility] 00:00:00 [facility] DTAP 2001 Completed [facility] 00:00:00 [facility] HIB 4 Dose Schedule 2001 Completed [facility] 00:00:00 [facility] Hep B, Adol or Pedi 2001 Completed [facility] Dosage 00:00:00 [facility] Polio (IPV/OPV) 2001 Completed [facility] 00[facility]:00 [facility] DTAP 2001 Completed [facility] 00:00:00 [facility] DTAP 2001 Completed [facility] 00:00:00 [facility] HIB 4 Dose Schedule 2001 Completed [facility] 00:00:00 [facility] Hep B, Adol or Pedi 2001 Completed [facility] Dosage 00:00:00 [facility] Polio (IPV/OPV) 2001 Completed [facility] 00:00:00 [facility] DTAP 2001 Completed [facility] 00:00:00 [facility] HIB 4 Dose Schedule 2001 Completed [facility] 00:00:00 [facility] Hep B, Adol or Pedi 2001 Completed [facility] Dosage 00:00:00 [facility] HIB 4 Dose Schedule 2001 Completed [facility] 00:00:00 [facility] Polio (IPV/OPV) 2001 Completed [facility] 00:00:00 [facility] DTAP 2001 Completed [facility] 00:00:00 [facility] HIB 4 Dose Schedule 2001 Completed [facility] 00:00:00 [facility] Hep B, Adol or Pedi 2001 Completed [facility] Dosage 00:00:00 [facility] Polio (IPV/OPV) 2001 Completed [facility] 00:00:00 [facility] DTAP 2001 Completed [facility] 00:00:00 [facility] Hep B, Adol or Pedi 2001 Completed [facility] Dosage 00:00:00 [facility] HIB 4 Dose Schedule 2001 Completed [facility] 00:00:00 [facility] Hep B, Adol or Pedi 2001 Completed [facility] Dosage 00:00:00 [facility] Polio (IPV/OPV) 2001 Completed [facility] 00:00:00 [facility] DTAP 2001 Completed [facility] 00:[facility]:00 [facility] HIB 4 Dose Schedule 2001 Completed [facility] 00:00:00 [facility] Hep B, Adol or Pedi 2001 Completed [facility] Dosage 00:00:00 [facility] Polio (IPV/OPV) 2001 Completed [facility] 00:[facility]00 [facility] Polio (IPV/OPV) 2001 Completed [facility] 00:[facility]:00 [facility] DTAP 2001 Completed [facility] 00:00:00 [facility] HIB 4 Dose Schedule 2001 Completed [facility] 00:00:00 [facility] Hep B, Adol or Pedi 2001 Completed [facility] Dosage 00:00:00 [facility] Polio (IPV/OPV) 2001 Completed [facility] 00:00:00 [facility] DTAP 2001 Completed [facility] 00:00:00 [facility] HIB 4 Dose Schedule 2001 Completed [facility] 00:00:00 [facility] Hep B, Adol or Pedi 2001 Completed [facility] Dosage 00:00:00 [facility] Polio (IPV/OPV) 2001 Completed [facility] 00:00:00 [facility] DTAP 2001 Completed [facility] 00:00:00 [facility] HIB 4 Dose Schedule 2001 Completed [facility] 00:00:00 [facility] Hep B, Adol or Pedi 2001 Completed [facility] Dosage 00:00:00 [facility] Polio (IPV/OPV) 2001 Completed [facility] 00:00:00 [facility] DTAP 2001 Completed [facility] 00:00:00 [facility] HIB 4 Dose Schedule 2001 Completed [facility] 00:00:00 [facility] Hep B, Adol or Pedi 2001 Completed [facility] Dosage 00:00:00 [facility] Polio (IPV/OPV) 2001 Completed [facility] 00:00:00 [facility] DTAP 2001 Completed [facility] 00:00:00 [facility] DTAP 2001 Completed [facility] 00:00:00 [facility] HIB 4 Dose Schedule 2001 Completed [facility] 00:00:00 [facility] Hep B, Adol or Pedi 2001 Completed [facility] Dosage 00:00:00 [facility] Polio (IPV/OPV) 2001 Completed [facility] 00:00:00 [facility] HIB 4 Dose Schedule 2001 Completed [facility] 00:00:00 [facility] DTAP 2001 Completed [facility] 00:00:00 [facility] HIB 4 Dose Schedule 2001 Completed [facility] 00:00:00 [facility] Hep B, Adol or Pedi 2001 Completed [facility] Dosage 00:00:00 [facility] Polio (IPV/OPV) 2001 Completed [facility] 00:00:00 [facility] DTAP 2001 Completed [facility] 00:00:00 [facility] HIB 4 Dose Schedule 2001 Completed [facility] 00:00:00 [facility] Hep B, Adol or Pedi 2001 Completed [facility] Dosage 00:00:00 [facility] Polio (IPV/OPV) 2001 Completed [facility] 00:00:00 [facility] Hep B, Adol or Pedi 2001 Completed [facility] Dosage 00:00:00 [facility] DTAP 2001 Completed [facility] 00:00:00 [facility] HIB 4 Dose Schedule 2001 Completed [facility] 00:00:00 [facility] Hep B, Adol or Pedi 2001 Completed [facility] Dosage 00:00:00 [facility] Polio (IPV/OPV) 2001 Completed [facility] 00:00:00 [facility] DTAP 2001 Completed [facility] 00:00:00 [facility] HIB 4 Dose Schedule 2001 Completed [facility] 00:00:00 [facility] Hep B, Adol or Pedi 2001 Completed [facility] Dosage 00:00:00 [facility] Polio (IPV/OPV) 2001 Completed [facility] 00:[facility]:00 [facility] Polio (IPV/OPV) 2001 Completed [facility] 00:00:00 [facility] DTAP 2001 Completed [facility] 00:00:00 [facility] HIB 4 Dose Schedule 2001 Completed [facility] 00:00:00 [facility] Hep B, Adol or Pedi 2001 Completed [facility] Dosage 00:00:00 [facility] Polio (IPV/OPV) 2001 Completed [facility] 00:00:00 [facility] DTAP 2001 Completed [facility] 00:00:00 [facility] HIB 4 Dose Schedule 2001 Completed [facility] 00:00:00 [facility] Hep B, Adol or Pedi 2001 Completed [facility] Dosage 00:00:00 [facility] Polio (IPV/OPV) 2001 Completed [facility] 00:00:00 [facility] DTAP 2001 Completed [facility] 00:00:00 [facility] HIB 4 Dose Schedule 2001 Completed [facility] 00:00:00 [facility] Hep B, Adol or Pedi 2001 Completed [facility] Dosage 00:00:00 [facility] Polio (IPV/OPV) 2001 Completed [facility] 00:00:00 [facility] DTAP 2001 Completed [facility] 00:00:00 [facility] HIB 4 Dose Schedule 2001 Completed [facility] 00:00:00 [facility] Hep B, Adol or Pedi 2001 Completed [facility] Dosage 00:00:00 [facility] Polio (IPV/OPV) 2001 Completed [facility] 00:00:00 [facility] DTAP 2001 Completed [facility] 00:00:00 [facility] DTAP 2001 Completed [facility] 00:00:00 [facility] HIB 4 Dose Schedule 2001 Completed [facility] 00:00:00 [facility] Hep B, Adol or Pedi 2001 Completed [facility] Dosage 00:00:00 [facility] Polio (IPV/OPV) 2001 Completed [facility] 00:00:00 [facility] DTAP 2001 Completed [facility] 00:00:00 [facility] HIB 4 Dose Schedule 2001 Completed [facility] 00:00:00 [facility] HIB 4 Dose Schedule 2001 Completed [facility] 00:00:00 [facility] Hep B, Adol or Pedi 2001 Completed [facility] D[facility]age 00:00:00 [facility] Polio (IPV/OPV) 2001 Completed [facility] 00:00:00 [facility] Hep B, Adol or Pedi 2001 Completed [facility] Dosage 00:00:00 [facility] Polio (IPV/OPV) 2001 Completed [facility] 00:00:00 [facility] DTAP 2001 Completed [facility] 00:00:00 [facility] HIB 4 Dose Schedule 2001 Completed [facility] 00:00:00 [facility] Hep B, Adol or Pedi 2001 Completed [facility] Dosage 00:00:00 [facility] Polio (IPV/OPV) 2001 Completed [facility] 00:00:00 [facility] DTAP 2001 Completed [facility] 00:00:00 [facility] HIB 4 Dose Schedule 2001 Completed [facility] 00:00:00 [facility] Hep B, Adol or Pedi 2001 Completed [facility] Dosage 00:00:00 [facility] Polio (IPV/OPV) 2001 Completed [facility] 00:00:00 [facility] DTAP 2001 Completed [facility] 00:[facility]:00 [facility] HIB 4 Dose Schedule 2001 Completed [facility] 00:00:00 [facility] Hep B, Adol or Pedi 2001 Completed [facility] Dosage 00:00:00 [facility] Polio (IPV/OPV) 2001 Completed [facility] 00:00:00 [facility] DTAP 2001 Completed [facility] 00:00:00 [facility] HIB 4 Dose Schedule 2001 Completed [facility] 00:00:00 [facility] Hep B, Adol or Pedi 2001 Completed [facility] Dosage 00:00:00 [facility] Polio (IPV/OPV) 2001 Completed [facility] 00:[facility]:00 [facility] DTAP 2001 Completed [facility] 00:00:00 [facility] HIB 4 Dose Schedule 2001 Completed [facility] 00:00:00 [facility] Hep B, Adol or Pedi 2001 Completed [facility] Dosage 00:00:00 [facility] Polio (IPV/OPV) 2001 Completed [facility] 00:00:00 [facility] DTAP 2001 Completed [facility] 00:00:00 [facility] HIB 4 Dose Schedule 2001 Completed [facility] 00:00:00 [facility] Hep B, Adol or Pedi 2001 Completed [facility] Dosage 00:00:00 [facility] Polio (IPV/OPV) 2001 Completed [facility] 00:00:00 [facility] DTAP 2001 Completed [facility] 00:00:00 [facility] HIB 4 Dose Schedule 2001 Completed [facility] 00:00:00 [facility] Hep B, Adol or Pedi 2001 Completed [facility] Dosage 00:00:00 [facility] Polio (IPV/OPV) 2001 Completed [facility] 00:00:00 [facility] DTAP 2001 Completed [facility] 00:00:00 [facility] HIB 4 Dose Schedule 2001 Completed [facility] 00:00:00 [facility] Hep B, Adol or Pedi 2001 Completed [facility] Dosage 00:00:00 [facility] Polio (IPV/OPV) 2001 Completed [facility] 00:00:00 [facility] DTAP 2001 Completed [facility] 00:[facility]:00 [facility] HIB 4 Dose Schedule 2001 Completed [facility] 00:00:00 [facility] Hep B, Adol or Pedi 2001 Completed [facility] Dosage 00:00:00 [facility] Polio (IPV/OPV) 2001 Completed [facility] 00:00:00 [facility] DTAP 2001 Completed [facility] 00:00:00 [facility] HIB 4 Dose Schedule 2001 Completed [facility] 00:00:00 [facility] Hep B, Adol or Pedi 2001 Completed [facility] Dosage 00:00:00 [facility] Polio (IPV/OPV) 2001 Completed [facility] 00:00:00 [facility] DTAP 2001 Completed [facility] 00:00:00 [facility] HIB 4 Dose Schedule 2001 Completed [facility] 00:00:00 [facility] Hep B, Adol or Pedi 2001 Completed [facility] Dosage 00:00:00 [facility] Polio (IPV/OPV) 2001 Completed [facility] 00:00:00 [facility] DTAP 2001 Completed [facility] 00:00:00 [facility] HIB 4 Dose Schedule 2001 Completed [facility] 00:00:00 [facility] Hep B, Adol or Pedi 2001 Completed [facility] Dosage 00:00:00 [facility] Polio (IPV/OPV) 2001 Completed [facility] 00:00:00 [facility] DTAP 2001 Completed [facility] 00:00:00 [facility] HIB 4 Dose Schedule 2001 Completed [facility] 00:00:00 [facility] Hep B, Adol or Pedi 2001 Completed [facility] Dosage 00:00:00 [facility] Polio (IPV/OPV) 2001 Completed [facility] 00:00:00 [facility] DTAP 2001 Completed [facility] 00:00:00 [facility] HIB 4 Dose Schedule 2001 Completed [facility] 00:00:00 [facility] Hep B, Adol or Pedi 2001 Completed [facility] Dosage 00:00:00 [facility] Polio (IPV/OPV) 2001 Completed [facility] 00:00:00 [facility] DTAP 2001 Completed [facility] 00:00:00 [facility] HIB 4 Dose Schedule 2001 Completed [facility] 00:00:00 [facility] Hep B, Adol or Pedi 2001 Completed [facility] Dosage 00:00:00 [facility] Polio (IPV/OPV) 2001 Completed [facility] 00:00:00 [facility] DTAP 2001 Completed [facility] 00:00:00 [facility] HIB 4 Dose Schedule 2001 Completed [facility] 00:00:00 [facility] DTAP 2001 Completed [facility] 00:00:00 [facility] Hep B, Adol or Pedi 2001 Completed [facility] Dosage 00:00:00 [facility] Polio (IPV/OPV) 2001 Completed [facility] 00:00:00 [facility] DTAP 2001 Completed [facility] 00:00:00 [facility] HIB 4 Dose Schedule 2001 Completed [facility] 00:00:00 [facility] Hep B, Adol or Pedi 2001 Completed [facility] Dosage 00:00:00 [facility] Polio (IPV/OPV) 2001 Completed [facility] 00:00:00 [facility] HIB 4 Dose Schedule 2001 Completed [facility] 00:00:00 [facility] DTAP 2001 Completed [facility] 00:00:00 [facility] HIB 4 Dose Schedule 2001 Completed [facility] 00:00:00 [facility] Hep B, Adol or Pedi 2001 Completed [facility] Dosage 00:00:00 [facility] Polio (IPV/OPV) 2001 Completed [facility] 00:00:00 [facility] DTAP 2001 Completed [facility] 00:00:00 [facility] HIB 4 Dose Schedule 2001 Completed [facility] 00:00:00 [facility] Hep B, Adol or Pedi 2001 Completed [facility] D[facility]age 00:00:00 [facility] Hep B, Adol or Pedi 2001 Completed [facility] Dosage 00:00:00 [facility] Polio (IPV/OPV) 2001 Completed [facility] 00:00:00 [facility] DTAP 2001 Completed [facility] 00:00:00 [facility] HIB 4 Dose Schedule 2001 Completed [facility] 00:00:00 [facility] Hep B, Adol or Pedi 2001 Completed [facility] Dosage 00:00:00 [facility] Polio (IPV/OPV) 2001 Completed [facility] 00:00:00 [facility] DTAP 2001 Completed [facility] 00:00:00 [facility] Polio (IPV/OPV) 2001 Completed [facility] 00:00:00 [facility] HIB 4 Dose Schedule 2001 Completed [facility] 00:00:00 [facility] Hep B, Adol or Pedi 2001 Completed [facility] Dosage 00:00:00 [facility] Polio (IPV/OPV) 2001 Completed [facility] 00:00:00 [facility] DTAP 2001 Completed [facility] 00:00:00 [facility] HIB 4 Dose Schedule 2001 Completed [facility] 00:00:00 [facility] Hep B, Adol or Pedi 2001 Completed [facility] Dosage 00:00:00 [facility] Polio (IPV/OPV) 2001 Completed [facility] 00:00:00 [facility] DTAP 2001 Completed [facility] 00:00:00 [facility] HIB 4 Dose Schedule 2001 Completed [facility] 00:00:00 [facility] Hep B, Adol or Pedi 2001 Completed [facility] Dosage 00:00:00 [facility] Polio (IPV/OPV) 2001 Completed [facility] 00:00:00 [facility] DTAP 2001 Completed [facility] 00:00:00 [facility] HIB 4 Dose Schedule 2001 Completed [facility] 00:00:00 [facility] Hep B, Adol or Pedi 2001 Completed [facility] Dosage 00:00:00 [facility] Polio (IPV/OPV) 2001 Completed [facility] 00:00:00 [facility] DTAP 2001 Completed [facility] 00:00:00 [facility] HIB 4 Dose Schedule 2001 Completed [facility] 00:00:00 [facility] Hep B, Adol or Pedi 2001 Completed [facility] Dosage 00:00:00 [facility] Polio (IPV/OPV) 2001 Completed [facility] 00:00:00 [facility] DTAP 2001 Completed [facility] 00:00:00 [facility] HIB 4 Dose Schedule 2001 Completed [facility] 00:00:00 [facility] Hep B, Adol or Pedi 2001 Completed [facility] Dosage 00:00:00 [facility] Polio (IPV/OPV) 2001 Completed [facility] 00:00:00 [facility] DTAP 2001 Completed [facility] 00:00:00 [facility] DTAP 2001 Completed [facility] 00:00:00 [facility] HIB 4 Dose Schedule 2001 Completed [facility] 00:00:00 [facility] Hep B, Adol or Pedi 2001 Completed [facility] Dosage 00[facility]00:00 [facility] Polio (IPV/OPV) 2001 Completed [facility] 00:[facility]:00 [facility] DTAP 2001 Completed [facility] 00:00:00 [facility] HIB 4 Dose Schedule 2001 Completed [facility] 00[facility]00 [facility] HIB 4 Dose Schedule 2001 Completed [facility] 00:00:00 [facility] Hep B, Adol or Pedi 2001 Completed [facility] Dosage 00:00:00 [facility] Polio (IPV/OPV) 2001 Completed [facility] 00:[facility]:00 [facility] DTAP 2001 Completed [facility] 00:00:00 [facility] HIB 4 Dose Schedule 2001 Completed [facility] 00:00:00 [facility] Hep B, Adol or Pedi 2001 Completed [facility] Dosage 00:00:00 [facility] Polio (IPV/OPV) 2001 Completed [facility] 00:00:00 [facility] Hep B, Adol or Pedi 2001 Completed [facility] Dosage 00:00:00 [facility] DTAP 2001 Completed [facility] 00:00:00 [facility] HIB 4 Dose Schedule 2001 Completed [facility] 00:00:00 [facility] Hep B, Adol or Pedi 2001 Completed [facility] Dosage 00:00:00 [facility] Polio (IPV/OPV) 2001 Completed [facility] 00:[facility]:00 [facility] DTAP 2001 Completed [facility] 00:00:00 [facility] HIB 4 Dose Schedule 2001 Completed [facility] 00:00:00 [facility] Hep B, Adol or Pedi 2001 Completed [facility] Dosage 00:00:00 [facility] Polio (IPV/OPV) 2001 Completed [facility] 00:[facility]:00 [facility] Polio (IPV/OPV) 2001 Completed [facility] 00:00:00 [facility] DTAP 2001 Completed [facility] 00:00:00 [facility] HIB 4 Dose Schedule 2001 Completed [facility] 00:00:00 [facility] Hep B, Adol or Pedi 2001 Completed [facility] Dosage 00:00:00 [facility] Polio (IPV/OPV) 2001 Completed [facility] 00:00:00 [facility] DTAP 2001 Completed [facility] 00:00:00 [facility] HIB 4 Dose Schedule 2001 Completed [facility] 00:00:00 [facility] Hep B, Adol or Pedi 2001 Completed [facility] Dosage 00:00:00 [facility] Polio (IPV/OPV) 2001 Completed [facility] 00:00:00 [facility] DTAP 2001 Completed [facility] 00:00:00 [facility] HIB 4 Dose Schedule 2001 Completed [facility] 00:00:00 [facility] Hep B, Adol or Pedi 2001 Completed [facility] Dosage 00:00:00 [facility] Polio (IPV/OPV) 2001 Completed [facility] 00:00:00 [facility] DTAP 2001 Completed [facility] 00:00:00 [facility] HIB 4 Dose Schedule 2001 Completed [facility] 00:00:00 [facility] Hep B, Adol or Pedi 2001 Completed [facility] Dosage 00:00:00 [facility] Polio (IPV/OPV) 2001 Completed [facility] 00:00:00 [facility] DTAP 2001 Completed [facility] 00:00:00 [facility] DTAP 2001 Completed [facility] 00:00:00 [facility] HIB 4 Dose Schedule 2001 Completed [facility] 00:00:00 [facility] Hep B, Adol or Pedi 2001 Completed [facility] Dosage 00:00:00 [facility] Polio (IPV/OPV) 2001 Completed [facility] 00:00:00 [facility] HIB 4 Dose Schedule 2001 Completed [facility] 00:00:00 [facility] DTAP 2001 Completed [facility] 00:00:00 [facility] HIB 4 Dose Schedule 2001 Completed [facility] 00:00:00 [facility] Hep B, Adol or Pedi 2001 Completed [facility] D[facility]age 00:00:00 [facility] Polio (IPV/OPV) 2001 Completed [facility] 00:00:00 [facility] DTAP 2001 Completed [facility] 00:00:00 [facility] HIB 4 Dose Schedule 2001 Completed [facility] 00:00:00 [facility] Hep B, Adol or Pedi 2001 Completed [facility] Dosage 00:00:00 [facility] Polio (IPV/OPV) 2001 Completed [facility] 00:00:00 [facility] Hep B, Adol or Pedi 2001 Completed [facility] Dosage 00:00:00 [facility] DTAP 2001 Completed [facility] 00:00:00 [facility] HIB 4 Dose Schedule 2001 Completed [facility] 00:00:00 [facility] Hep B, Adol or Pedi 2001 Completed [facility]ity [facility] Dosage 00:00:00 [facility] Polio (IPV/OPV) 2001 Completed [facility] 00:[facility]:00 [facility] DTAP 2001 Completed [facility] 00:00:00 [facility] HIB 4 Dose Schedule 2001 Completed [facility] 00:00:00 [facility] Polio (IPV/OPV) 2001 Completed [facility] 00:00:00 [facility] Hep B, Adol or Pedi 2001 Completed [facility] Dosage 00:00:00 [facility] Polio (IPV/OPV) 2001 Completed [facility] 00:00:00 [facility] DTAP 2001 Completed [facility] 00:00:00 [facility] HIB 4 Dose Schedule 2001 Completed [facility]ity [facility] 00:00:00 [facility] Hep B, Adol or Pedi 2001 Completed [facility] Dosage 00:00:00 [facility] Polio (IPV/OPV) 2001 Completed [facility] 00:00:00 [facility] DTAP 2001 Completed [facility] 00:00:00 [facility] HIB 4 Dose Schedule 2001 Completed [facility] 00:00:00 [facility] Hep B, Adol or Pedi 2001 Completed [facility] Dosage 00:00:00 [facility] Polio (IPV/OPV) 2001 Completed [facility] 00:00:00 [facility] DTAP 2001 Completed [facility] 00:00:00 [facility] HIB 4 Dose Schedule 2001 Completed [facility] rsity of 00:00:00 [facility] Hep B, Adol or Pedi 2001 Completed [facility] Dosage 00:00:00 [facility] Polio (IPV/OPV) 2001 Completed [facility] 00:00:00 [facility] DTAP 2001 Completed [facility] 00:00:00 [facility] HIB 4 Dose Schedule 2001 Completed [facility]ity [facility] 00:00:00 [facility] Hep B, Adol or Pedi 2001 Completed [facility] of Dosage 00:00:00 [facility] Polio (IPV/OPV) 2001 Completed [facility] 00:00:00 [facility] DTAP 2001 Completed [facility] 00:00:00 [facility] DTAP 2001 Completed [facility] 00:00:00 [facility] HIB 4 Dose Schedule 2001 Completed [facility]ity of 00:00:00 [facility] Hep B, Adol or Pedi 2001 Completed [facility] of Dosage 00:00:00 [facility] Polio (IPV/OPV) 2001 Completed [facility] 00:00:00 [facility] HIB 4 Dose Schedule 2001 Completed [facility] 00:00:00 [facility] DTAP 2001 Completed [facility] 00:00:00 [facility] HIB 4 Dose Schedule 2001 Completed [facility] 00:00:00 [facility] Hep B, Adol or Pedi 2001 Completed [facility] Dosage 00:00:00 [facility] Polio (IPV/OPV) 2001 Completed [facility] 00:00:00 [facility] Hep B, Adol or Pedi 2001 Completed [facility] Dosage 00:00:00 [facility] Polio (IPV/OPV) 2001 Completed [facility] 00:00:00 [facility] DTAP 2001 Completed [facility] 00:00:00 [facility] HIB 4 Dose Schedule 2001 Completed [facility] 00:00:00 [facility] Hep B, Adol or Pedi 2001 Completed [facility] Dosage 00:00:00 [facility] Polio (IPV/OPV) 2001 Completed [facility] 00:00:00 [facility] DTAP 2001 Completed [facility] 00:00:00 [facility] HIB 4 Dose Schedule 2001 Completed [facility] 00:00:00 [facility] Hep B, Adol or Pedi 2001 Completed [facility] Dosage 00:00:00 [facility] Polio (IPV/OPV) 2001 Completed [facility] 00:00:00 [facility] DTAP 2001 Completed [facility] 00:00:00 [facility] HIB 4 Dose Schedule 2001 Completed [facility] 00:00:00 [facility] Hep B, Adol or Pedi 2001 Completed [facility] Dosage 00:00:00 [facility] Polio (IPV/OPV) 2001 Completed [facility] 00:00:00 [facility] DTAP 2001 Completed [facility] 00:00:00 [facility] HIB 4 Dose Schedule 2001 Completed [facility] 00:00:00 [facility] Hep B, Adol or Pedi 2001 Completed [facility] Dosage 00:00:00 [facility] Polio (IPV/OPV) 2001 Completed [facility] 00:00:00 [facility] DTAP 2001 Completed [facility] 00:00:00 [facility] HIB 4 Dose Schedule 2001 Completed [facility] 00:00:00 [facility] Hep B, Adol or Pedi 2001 Completed [facility] Dosage 00:00:00 [facility] Polio (IPV/OPV) 2001 Completed [facility] 00:00:00 [facility] DTAP 2001 Completed [facility] 00:00:00 [facility] HIB 4 Dose Schedule 2001 Completed [facility] of 00:00:00 [facility] Hep B, Adol or Pedi 2001 Completed [facility] Dosage 00:00:00 [facility] Polio (IPV/OPV) 2001 Completed [facility] 00:00:00 [facility] DTAP 2001 Completed [facility] 00:00:00 [facility] HIB 4 Dose Schedule 2001 Completed [facility] of 00:00:00 [facility] Hep B, Adol or Pedi 2001 Completed [facility] of Dosage 00:00:00 [facility] Polio (IPV/OPV) 2001 Completed [facility] 00:00:00 [facility] DTAP 2001 Completed [facility] 00:00:00 [facility] HIB 4 Dose Schedule 2001 Completed [facility] of 00:00:00 [facility] Hep B, Adol or Pedi 2001 Completed [facility] of Dosage 00:00:00 [facility] Polio (IPV/OPV) 2001 Completed [facility] 00:00:00 [facility] DTAP 2001 Completed [facility] 00:00:00 [facility] HIB 4 Dose Schedule 2001 Completed [facility] of 00:00:00 [facility] Hep B, Adol or Pedi 2001 Completed [facility] Dosage 00:00:00 [facility] Polio (IPV/OPV) 2001 Completed [facility] 00:00:00 [facility] DTAP 2001 Completed [facility] 00:00:00 [facility] HIB 4 Dose Schedule 2001 Completed [facility] of 00:00:00 [facility] Hep B, Adol or Pedi 2001 Completed [facility] of Dosage 00:00:00 [facility] Polio (IPV/OPV) 2001 Completed [facility] 00:00:00 [facility] DTAP 2001 Completed [facility] 00:00:00 [facility] HIB 4 Dose Schedule 2001 Completed [facility] of 00:00:00 [facility] Hep B, Adol or Pedi 2001 Completed [facility] of Dosage 00:00:00 [facility] Polio (IPV/OPV) 2001 Completed [facility] 00:00:00 [facility] DTAP 2001 Completed [facility] 00:00:00 [facility] HIB 4 Dose Schedule 2001 Completed [facility]ity of 00:00:00 [facility] Hep B, Adol or Pedi 2001 Completed [facility] Dosage 00:00:00 [facility] Polio (IPV/OPV) 2001 Completed [facility] 00:00:00 [facility] DTAP 2001 Completed [facility] 00:00:00 [facility] HIB 4 Dose Schedule 2001 Completed [facility]ity of 00:00:00 [facility] Hep B, Adol or Pedi 2001 Completed [facility] Dosage 00:00:00 [facility] Polio (IPV/OPV) 2001 Completed [facility] 00:00:00 [facility] DTAP 2001 Completed [facility] 00:00:00 [facility] HIB 4 Dose Schedule 2001 Completed [facility]ity of 00:00:00 [facility] Hep B, Adol or Pedi 2001 Completed [facility] of Dosage 00:00:00 [facility] Polio (IPV/OPV) 2001 Completed [facility] 00:00:00 [facility] DTAP 2001 Completed [facility] of 00:00:00 [facility] HIB 4 Dose Schedule 2001 Completed [facility] of 00:00:00 [facility] Hep B, Adol or Pedi 2001 Completed [facility] of Dosage 00:00:00 [facility] Polio (IPV/OPV) 2001 Completed [facility] 00:00:00 [facility] DTAP 2001 Completed [facility] 00:00:00 [facility] DTAP 2001 Completed [facility] 00:00:00 [facility] HIB 4 Dose Schedule 2001 Completed [facility]ity of 00:00:00 [facility] Hep B, Adol or Pedi 2001 Completed [facility] of Dosage 00:00:00 [facility] Polio (IPV/OPV) 2001 Completed [facility] 00:00:00 [facility] DTAP 2001 Completed [facility] 00:00:00 [facility] HIB 4 Dose Schedule 2001 Completed [facility]ity of 00:00:00 [facility] Hep B, Adol or Pedi 2001 Completed [facility] of Dosage 00:00:00 [facility] HIB 4 Dose Schedule 2001 Completed [facility] of 00:00:00 [facility] Polio (IPV/OPV) 2001 Completed [facility] 00:00:00 [facility] DTAP 2001 Completed [facility] 00:00:00 [facility] HIB 4 Dose Schedule 2001 Completed [facility]ity of 00:00:00 [facility] Hep B, Adol or Pedi 2001 Completed [facility] of Dosage 00:00:00 [facility] Polio (IPV/OPV) 2001 Completed [facility] 00:00:00 [facility] DTAP 2001 Completed [facility] 00:00:00 [facility] Hep B, Adol or Pedi 2001 Completed [facility] of Dosage 00:00:00 [facility] HIB 4 Dose Schedule 2001 Completed [facility] of 00:00:00 [facility] Hep B, Adol or Pedi 2001 Completed [facility] of Dosage 00:00:00 [facility] Polio (IPV/OPV) 2001 Completed [facility] 00:00:00 [facility] DTAP 2001 Completed [facility] 00:00:00 [facility] HIB 4 Dose Schedule 2001 Completed [facility]ity of 00:00:00 [facility] Hep B, Adol or Pedi 2001 Completed [facility] Dosage 00:00:00 [facility] Polio (IPV/OPV) 2001 Completed [facility] 00:00:00 [facility] Hep B, Adol or Pedi 2001 Completed [facility] of Dosage 00:00:00 [facility] Hep B, Adol or Pedi 2001 Completed [facility] of Dosage 00:00:00 [facility] Hep B, Adol or Pedi 2001 Completed [facility] of Dosage 00:00:00 [facility] Hep B, Adol or Pedi 2001 Completed [facility] of Dosage 00:00:00 [facility] Hep B, Adol or Pedi 2001 Completed [facility] of Dosage 00:00:00 [facility] Hep B, Adol or Pedi 2001 Completed [facility] of Dosage 00:00:00 [facility] Hep B, Adol or Pedi 2001 Completed [facility] of Dosage 00:00:00 [facility] Hep B, Adol or Pedi 2001 Completed [facility] of Dosage 00:00:00 [facility] Hep B, Adol or Pedi [...] 2001 Completed [facility] of Dosage 00:00:00 [facility] Hep B, Adol or Pedi 2001 Completed [facility] of Dosage 00:00:00 [facility] Hep B, Adol or Pedi 2001 Completed [facility] of Dosage 00:00:00 [facility] Hep B, Adol or Pedi 2001 Completed [facility] of Dosage 00:00:00 [facility] Hep B, Adol or Pedi 2001 Completed [facility] of Dosage 00:00:00 [facility] Hep B, Adol or Pedi 2001 Completed [facility] of Dosage 00:00:00 [facility] Hep B, Adol or Pedi [...] 2001 Completed [facility] of Dosage 00:00:00 [facility] Hep B, Adol or Pedi 2001 Completed [facility] of Dosage 00:00:00 [facility] Vital Signs Vital Name Observation Time Observation Value Comments Source Systolic blood 2020-08-20 14:45:00 119 mm[Hg] Univer [facility]ity [facility] pressure [facility] Diastolic blood 2020-08-20 14:45:00 75 mm[Hg] [facility] rsity [facility] pressure [facility] Heart rate 2020-08-20 14:45:00 80 /min [facility]i ty of [facility] Body temperature 2020-08-20 14:45:00 36.78 Lilo [facility] height 2020-08-20 14:45:00 177.[address] [facility] Body weight 2020-08-20 14:45:00 131.588 kg Universi ty [facility] BMI 2020-08-20 14:45:00 41.63 kg/m2 Universi ty [facility] Oxygen saturation in 2020-08-20 14:45:00 99 /min [facility] Arterial blood by [facility] Pulse oximetry Branch height 2020-08-12 10:30:00 69 [in_i] [facility] weight 2020-08-12 10:30:00 287 [lb_av] [facility] bmi 2020-08-12 10:30:00 42.38 kg/m2 [facility] blood pressure 2020-08-12 10:30:00 118 mm[Hg] [facility] blood pressure 2020-08-12 10:30:00 78 mm[Hg] [facility] Systolic blood 2020-07-09 15:47:00 123 mm[Hg] Univer [facility]ity of [facility] Diastolic blood 2020-07-09 15:47:00 80 mm[Hg] Unive rsity of pressure [facility] Heart rate 2020-07-09 15:47:00 92 /min [facility]i ty of [facility] Body temperature 2020-07-09 15:47:00 37 Lilo [facility] Respiratory rate 2020-07-09 15:47:00 18 /min [facility] Body height 2020-07-09 15:47:00 175.3 cm Universi ty [facility] Body weight 2020-07-09 15:47:00 127.914 kg [facility] BMI 2020-07-09 15:47:00 41.64 kg/m2 Universi ty of [facility] Oxygen saturation in 2020-07-09 15:47:00 98 /min University of Arterial blood by [facility] Pulse oximetry Branch Systolic blood 2020-06-25 16:42:00 120 mm[Hg] Univer sity of pressure [facility] Diastolic blood 2020-06-25 16:42:00 77 mm[Hg] Unive rsity of pressure [facility] Heart rate 2020-06-25 16:42:00 72 /min [facility]i [facility] Body temperature 2020-06-25 16:42:00 37 Lilo Univ ersity of [facility] Respiratory rate 2020-06-25 16:42:00 18 /min Univ ersity of [facility] Body height 2020-06-25 16:42:00 177.8 cm [facility] Body weight 2020-06-25 16:42:00 127.914 kg [facility] BMI 2020-06-25 16:42:00 40.46 kg/m2 [facility] Oxygen saturation in 2020-06-25 16:42:00 100 /min University of Arterial blood by [facility] Pulse oximetry Branch Systolic blood 2020-06-17 12:15:00 138 mm[Hg] Univer sity of pressure [facility] Diastolic blood 2020-06-17 12:15:00 83 mm[Hg] Unive rsity of pressure [facility] Heart rate 2020-06-17 12:15:00 64 /min [facility] Body temperature 2020-06-17 12:15:00 36.44 Lilo Univ ersity of [facility] Respiratory rate 2020-06-17 12:15:00 18 /min Univ ersity of [facility] Body height 2020-06-17 12:15:00 177.8 cm [facility] Body weight 2020-06-17 12:15:00 127.007 kg [facility] BMI 2020-06-17 12:15:00 40.18 kg/m2 [facility] Oxygen saturation in 2020-06-17 12:15:00 99 /min [facility] of Arterial blood by [facility] Pulse oximetry Branch height 2020-06-10 10:30:00 69 [in_i] [facility] weight 2020-06-10 10:30:00 287 [lb_av] [facility] temperature 2020-06-10 10:30:00 97.3 [degF] [facility] bmi 2020-06-10 10:30:00 42.38 kg/m2 [facility] blood pressure 2020-06-10 10:30:00 120 mm[Hg] [facility] blood pressure 2020-06-10 10:30:00 74 mm[Hg] [facility] Systolic blood 2020-05-14 17:54:00 115 mm[Hg] Univer sity of pressure [facility] Diastolic blood 2020-05-14 17:54:00 67 mm[Hg] Unive rsity of pressure [facility] Heart rate 2020-05-14 17:54:00 77 /min [facility]i ty of [facility] Body temperature 2020-05-14 17:54:00 36.67 Lilo Univ ersity [facility] Respiratory rate 2020-05-14 17:54:00 18 /min Univ ersity [facility] Body height 2020-05-14 17:54:00 177.[address] [facility] Body weight 2020-05-14 17:54:[address] [facility] BMI 2020-05-14 17:54:00 40.59 kg/m2 [facility]i ty of [facility] Oxygen saturation in 2020-05-14 17:54:00 100 /min [facility] of Arterial blood by [facility] Pulse oximetry Branch Systolic blood 2020-05-14 17:54:00 115 mm[Hg] Univer sity of pressure [facility] Diastolic blood 2020-05-14 17:54:00 67 mm[Hg] Unive rsity of pressure [facility] Heart rate 2020-05-14 17:54:00 77 /min [facility]i ty of [facility] Body temperature 2020-05-14 17:54:00 36.67 Lilo [facility] 2020-05-14 17:54:00 18 /min [facility] Body height 2020-05-14 17:54:00 177.[address] [address] [facility] Body weight 2020-05-14 17:54:00 128.323 kg Universi ty [facility] BMI 2020-05-14 17:54:00 40.59 kg/m2 Universi [facility] Oxygen saturation in 2020-05-14 17:54:00 100 /min [facility] Arterial blood by [facility] Pulse oximetry Branch temperature 2020-04-21 14:00:00 97.7 [degF] [facility] bmi 2020-04-21 14:00:00 41.2 kg/m2 [facility] blood pressure 2020-04-21 14:00:00 122 mm[Hg] [facility] blood pressure 2020-04-21 14:00:00 80 mm[Hg] [facility] height 2020-04-21 14:00:00 69 [in_i] [facility] weight 2020-04-21 14:00:00 279 [lb_av] [facility] height 2020-03-20 11:15:00 69 [in_i] [facility] weight 2020-03-20 11:15:00 279 [lb_av] [facility] bmi 2020-03-20 11:15:00 41.2 kg/m2 [facility] blood pressure 2020-03-20 11:15:00 147 mm[Hg] [facility] blood pressure 2020-03-20 11:15:00 89 mm[Hg] [facility] height 2020-03-11 15:30:00 69 [in_i] [facility] weight 2020-03-11 15:30:00 279 [lb_av] [facility] temperature 2020-03-11 15:30:00 97.1 [degF] [facility] bmi 2020-03-11 15:30:00 41.20 kg/m2 [facility] blood pressure 2020-03-11 15:30:00 133 mm[Hg] [facility] blood pressure 2020-03-11 15:30:00 84 mm[Hg] [facility] height 2020-02-28 10:00:00 69 [in_i] [facility] weight 2020-02-28 10:00:00 179 [lb_av] [facility] temperature 2020-02-28 10:00:00 97.3 [degF] [facility] bmi 2020-02-28 10:00:00 26.43 kg/m2 [facility] blood pressure 2020-02-28 10:00:00 124 mm[Hg] [facility] blood pressure 2020-02-28 10:00:00 84 mm[Hg] [facility] height 2020-02-12 10:30:00 69 [in_i] [facility] weight 2020-02-12 10:30:00 179 [lb_av] [facility] temperature 2020-02-12 10:30:00 97.1 [degF] [facility] bmi 2020-02-12 10:30:00 26.43 kg/m2 [facility] blood pressure 2020-02-12 10:30:00 124 mm[Hg] [facility] blood pressure 2020-02-12 10:30:00 82 mm[Hg] [facility] height 2020-01-29 11:00:00 69 [in_i] [facility] weight 2020-01-29 11:00:00 179 [lb_av] [facility] bmi 2020-01-29 11:00:00 26.43 kg/m2 [facility] blood pressure 2020-01-29 11:00:00 118 mm[Hg] [facility] blood pressure 2020-01-29 11:00:00 82 mm[Hg] [facility] height 2020-01-22 13:00:00 69 [in_i] [facility] weight 2020-01-22 13:00:00 179 [lb_av] [facility] bmi 2020-01-22 13:00:00 26.43 kg/m2 [facility] blood pressure 2020-01-22 13:00:00 120 mm[Hg] [facility] blood pressure 2020-01-22 13:00:00 80 mm[Hg] [facility] Systolic blood 2020-01-20 19:46:00 140 mm[Hg] Univer sity of pressure [facility] Diastolic blood 2020-01-20 19:46:00 79 mm[Hg] Unive rsity of [facility] Heart rate 2020-01-20 19:46:00 99 /min Universi [facility] Body temperature 2020-01-20 19:46:00 37.44 L[address] [address] [facility] Respiratory rate 2020-01-20 19:46:00 18 /min Univ ersity of [facility] Body weight 2020-01-20 19:46[facility] 2020-01-20 19:46:00 97 /min University Arterial blood by [facility] Pulse oximetry Branch Systolic blood 2020-01-02 14:09:00 120 mm[Hg] Univer sity of pressure [facility] Diastolic blood 2020-01-02 14:09:00 83 mm[Hg] Unive rsity of pressure [facility] Heart rate 2020-01-02 14:09:00 79 [facility] 2020-01-02 14:09:00 36.67 Lilo [facility] Respiratory rate 2020-01-02 14:09:00 18 /min Univ ersity of [facility] Body height 2020-01-02 14:09:00 175.3 cm [facility] [place] Body weight 2020-01-02 14:09:[address] [facility] BMI 2020-01-02 14:09:00 41.20 kg/m2 Univers[facility] ty of [facility] Oxygen saturation in 2020-01-02 14:09:00 100 /min [facility] Arterial blood by [facility] Pulse oximetry Branch Systolic blood 2019-11-23 15:43:00 132 mm[Hg] Univer sity of pressure [facility] Diastolic blood 2019-11-23 15:43:00 80 mm[Hg] Unive rsity of [facility] Heart rate 2019-11-23 15:43:00 87 /min [facility]i ty of [facility] Body temperature 2019-11-23 15:43:00 37.22 Lilo [facility] 2019-11-23 15:43:00 20 /min [facility] ersity of [facility] Body height 2019-11-23 15:43:00 172.5 [address] [facility] Body weight 2019-11-23 15:43:[address] [facility] BMI 2019-11-23 15:43:00 42.59 kg/m2 [facility] ty [facility] Body height 2019-08-17 16:00:00 177.8 cm [facility] Body weight 2019-08-17 16:00:[address] [facility] BMI 2019-08-17 16:00:00 35.87 kg/m2 [facility] ty [facility] Procedures Procedure Date / Time Performing Clinician Source Performed POCT TEST 2020-06-17 11:30:00 Maria R He [facility] ASSIGNMENT OF BENEFITS 2020-06-17 10:54:43 Doctor Unassigned, No [facility] Name Medical Branch DISCLOSURE AND CONSENT, 2020-05-14 06:01:00 Doctor Unassigned, N o [facility] MEDICAL AND SURGICAL Name Medical Bra nc PROCEDURES XR KNEE 3 VW RIGHT 2020-01-20 20:20:03 Leyda Juares [facility] CONSENT/REFUSAL FOR 2020-01-20 19:36:17 [facility] Name Medical [facility] DISCLOSURE AND CONSENT, 2020-01-02 05:01:00 Doctor Unassigned, N o [facility] MEDICAL AND SURGICAL Name [facility] PROCEDURES MENINGOCOCCAL B VACCINE, 2019-11-23 15:55:20 Izzy Villanueva [facility] OMV, 2 DOSE, IM [facility] NOTICE OF PRIVACY 2019-11-23 15:23:48 Doctor Unassigned, No [facility] PRACTICES Name [facility] Encounters Start End Encounter Admission Attending Care Care Encounter Source Date/Time Date/Time Type Type Clinicians Facility Department ID 2021-05-13 [facility] [id number] Common 11:52:27 [id number] [facility] 2021-02-15 Outpatient ELVIE FAN [facility] [id number] Univers 01:09:16 ity [facility] 2021-02-13 Emergency [facility] [id number] Univers 20:55:59 ity [facility] 2022-11-01 2022-11-01 Outpatient SFA SFA [id number] Alejandro 15:30:42 15:30:42 0717 F Baldev 2020-08-20 2020-08-20 Office Elvie Fan [facility] 1.2.840.114 [id number] Univers 09:39:34 10:17:52 Visit E SPECIALTY 350.1.13.10 ity of CARE 4.2.7.2.686 [facility] AT [phone] Ga dical GRACE [address] [place] 2020-08-20 2020-08-20 Outpatient ELVIE DOOLEY [facility] [id number] Univers 09:45:00 09:45:00 ity [facility] 2020-08-12 2020-08-12 OFFICE [facility] [id number] Co mmon 00:00:00 00:00:00 VISIT EST Spir it PT LEVEL 3 - [facility] 2020-07-23 2020-07-23 Outpatient ELVIE DOOLEY [facility] [id number] Univers 10:45:00 10:45:[address] [facility] 2020-07-16 2020-07-16 Outpatient R MITAELVIE [facility] [id number] Univers 09:45:00 09:45:[address] [facility] 2020-07-16 2020-07-16 Telemedici Elvie Fan [facility] 1.2.840.114 [id number] Univers 07:55:20 08:10:20 ne Visit E SPECIALTY 350.1.13.10 [place] [phone] [place] gumaro EDWARDS [address] [place] [address] 2020-07-09 2020-07-09 [facility] 1.2.840.114 [id number] Univers 10:42:26 11:51:21 Visit E SPECIALTY 350.1.13.10 [place] [phone] Ga gumaro EDWARDS [address] [place] [address] 2020-07-09 2020-07-09 Outpatient R MITAELVIE [facility] [id number] Univers 10:45:00 10:45:[address] [facility] 2020-06-25 2020-06-25 [facility] 1.2.840.114 [id number] Univers 10:31:50 11:20:56 Visit E SPECIALTY 350.1.13.10 [place] [phone] Ga gumaro EDWARDS [address] [place] [address] 2020-06-25 2020-06-25 Outpatient R MITASANTYIE [facility] [id number] Univers 10:45:00 10:45:[address] [facility] 2020-06-20 2020-06-20 Outpatient R FARHEEN [facility] [id number] Univers 13:00:00 13:00:[address] [facility] 2020-06-17 2020-06-17 [facility] Elvie Fan [facility] 1.2.840.114 [id number] Univers 04:54:00 12:53:00 Encounter E Health [id number] ity of [place] 4.2.7.2.686 [facility] [phone] [address] ([facility]) 2020-06-17 2020-06-17 Orders Doctor ADRI 1.2.840.114 [id number] Univers 00:00:00 00:00:00 Only Unassigned, MELBA 350.1.13.10 ity of [place] [facility] 4.2.7.2.686 Germain as [phone] [facility] [address] [place] 2020-06-17 2020-06-17 Telephone Elvie Fan [facility] 1.2.840.114 [id number] Univers 00:00:00 00:00:00 E SPECIALTY 350.1.13.10 ity of CARE 4.2.7.2.686 [facility] AT [phone] [address] 2020-06-16 2020-06-16 Nurse ADRI Manrique 1.2.840.114 [id number] Univers 00:00:00 00:00:00 Triage Randi REILLY 350.1.13.10 it y of HOSPITAL 4.2.7.2.686 Germain as [phone] [facility] [address] [place] 2020-06-13 2020-06-13 Laboratory Only, Adc Test [facility] 1.2.840. 114 [id number] Univers 09:42:52 09:57:52 Only Dhiraj June 350.1.13.10 ity of [place] 4.2.7.2.686 [facility] [phone] [facility] [address] [place] 2020-06-13 2020-06-13 Outpatient R SHAYLEE [facility] [id number] Univers 09:45:00 09:45:[address] [facility] 2020-06-11 2020-06-11 Outpatient R ELVIE FAN [facility] [id number] Univers 09:15:00 09:15:00 ity [facility] 2020-06-11 2020-06-11 Telemedici Elvie Fan [facility] 1.2.840.114 [id number] Univers 07:53:33 08:08:33 ne Visit E SPECIALTY 350.1.13.10 [place] [phone] Ga paramberna Castellon [facility] 2020-06-10 2020-06-10 OFFICE STLMLC STLMLC [id number] Co mmon 00:00:00 00:00:00 VISIT EST Spir it PT LEVEL 3 - [facility] 2020-05-14 2020-05-14 Office Elvie Fan [facility] 1.2.840.114 [id number] 11:37:54 11:37:54 Visit E SPECIALTY 350.1.13.10 CARE 4.2.7.2.686 CENTER AT [phone] GRACE Castellon [facility] 2020-05-14 2020-05-14 Office Elvie Fan [facility] 1.2.840.114 [id number] Univers 11:37:54 11:37:54 Visit E SPECIALTY 350.1.13.10 ity of CARE 4.2.7.2.686 [facility] C[facility] AT [phone] Ga gumaro KHOAArlen [address] [place] [address] 2020-05-14 2020-05-14 Outpatient R ELVIE FAN [facility] [id number] Univers 11:30:00 11:30:[address] [facility] 2020-05-14 2020-05-14 Orders Doctor ADRI 1.2.840.114 [id number] 00:00:00 00:00:00 Only Unassigned, MELBA 350.1.13.10 [facility] 4.2.7.2.686 [id number] 009 2020-05-14 2020-05-14 Orders Doctor ADRI 1.2.840.114 [id number] Univers 00:00:00 00:00:00 Only Unassigned, MELBA 350.1.13.10 ity of [place] [facility] 4.2.7.2.686 Germain as [phone] [address] 2020-04-21 2020-04-21 NON-BILLAB STLMLC STLMLC [id number] Common 00:00:00 00:00:00 LE VISIT Spiri t [facility] 2020-04-02 2020-04-02 Prep For Elvie Fan [facility] 1.2.840.114 [id number] Univers 00:00:00 00:00:00 Surgery E SPECIALTY 350.1.13.10 ity of CARE 4.2.7.2.686 [facility] AT [phone] Ga gumaro EDWARDS [address] [place] [address] 2020-03-26 2020-03-26 Outpatient R ELVIE FAN [facility] [id number] Univers 09:00:00 09:00:[address] [facility] 2020-03-26 2020-03-26 Telemedici [facility] 1.2.840.114 [id number] Univers 08:01:41 08:16:41 ne Visit E SPECIALTY 350.1.13.10 ity of CARE 4.2.7.2.686 [facility] AT [phone] Ga gumaro EDWARDS [address] [place] [address] 2020-03-20 2020-03-20 NON-BILLAB STLMLC STLMLC [id number] Common 00:00:00 00:00:00 LE VISIT Spiri t - [facility] 2020-03-11 2020-03-11 NON-BILLAB STLMLC STLMLC [id number] Common 00:00:00 00:00:00 LE VISIT Spiri t - [facility] 2020-02-28 2020-02-28 OFFICE STLMLC STLMLC [id number] Co mmon 00:00:00 00:00:00 VISIT EST Spir it PT LEVEL 3 - [facility] 2020-02-18 2020-02-18 (TEL) STLMLC STLMLC [id number] Co mmon 00:00:00 00:00:00 Spirit - [facility] 2020-02-12 2020-02-12 OFFICE STLMLC STLMLC [id number] Co mmon 00:00:00 00:00:00 VISIT Spirit ESTAB PT - CHI LEVEL 4 [facility] 2020-01-30 2020-01-30 Outpatient R ELVIE FAN [facility] [id number] Univers 09:45:00 09:45:00 ity [facility] 2020-01-30 2020-01-30 Telephone ADRI Davis [id number] Univers 00:00:00 00:00:00 Jocelin REILLY 350.1.13.10 ity of [facility] 4.2.7.2.686 [place] as [phone] [facility] [address] 2020-01-29 2020-01-29 OFFICE STLMLC STLMLC [id number] Co mmon 00:00:00 00:00:00 VISIT Spirit ESTAB PT - CHI LEVEL 4 [facility] 2020-01-25 2020-01-25 Outpatient R ELVIE FAN [facility] [id number] Univers 14:40:00 14:40:[address] [facility] 2020-01-23 2020-01-23 Telemedici Mita Elvie [facility] 1.2.840.1 [id number] Univers 07:42:59 20:30:59 ne Visit E HEALTH 350.1.13.10 ity of [facility] 4.2.7.2.[place] [phone] [facility] [address] [place] 2020-01-23 2020-01-23 Outpatient R ELVIE FAN [facility] [id number] Univers 09:15:00 09:15:[address] [facility] 2020-01-23 2020-01-23 (TEL) STLMLC STLMLC [id number] Co mmon 00:00:00 00:00:00 Spirit - [facility] 2020-01-22 2020-01-22 OFFICE STLMLC STLMLC [id number] Co mmon 00:00:00 00:00:00 VISIT TETE [facility] it PT LEVEL 4 - [facility] 2020-01-20 2020-01-20 [facility] [id number] Univers 14:48:00 16:37:00 Leyda Rodriges 350.1.13.10 ity of [place]7.2.[place] [phone] [facility] [address] [place] 2020 2020 Telephone Elvie Fan [facility] 1.2.840.114 [id number] Univers 00:00:00 00:00:00 E SPECIALTY 350.1.13.10 it[place] [phone] Ga gumaro COU[address] 2020-01-16 2020-01-16 [facility]phone [facility] 1.2.840.114 [id number] Univers 00:00:00 00:00:00 Izzy N PRICE ANALYST 350.1.13.[address] [facility] 4.2.7.2.686 Germain as MATERNAL [phone] Med ical & CHILD [address] [place] [address] 2020-01-02 2020-01-02 Office Elvie Fan [facility] 1.2.840.114 [id number] Univers 09:01:49 17:14:00 Visit E SPECIALTY 350.1.13.10 ity of [facility] 4.2.7.2.[place] AT [phone] Ga paramberna KHOA[address] 2020-01-02 2020-01-02 Outpatient R ELVIE FAN [facility] [id number] Univers 09:15:00 09:15:[address] [facility] 2020-01-02 2020-01-02 Orders Doctor RUSH 1.2.840.114 [id number] Univers 00:00:00 00:00:00 Only Unassigned, MELBA 350.1.13.10 ity of [place] [facility] 4.2.7.2.686 [place] as [phone] [address] 2019-12-05 2019-12-05 Outpatient R ELVIE FAN [facility] [id number] Univers 10:00:00 10:00:[address] [facility] 2019-11-23 2019-11-23 Outpatient R ELVIE FAN [facility] [id number] Univers 13:00:00 13:00:[address] [facility] 2019-11-23 2019-11-23 [facility] [id number] [id number] Univers 11:20:22 11:35:22 Encounter Izzy Saldivar PRICE ANALYST 350.1.13.[address] [facility] 4.2.7.2.686 [place] as MATERNAL [phone] Med ical & CHILD [address] [place] [address] 2019-11-23 2019-11-23 Office [facility] [id number] Univers 10:31:41 11:21:56 Visit Izzy Saldivar PRICE ANALYST 350.1.13.10 it y of REGIONAL 4.2.7.2.686 [place] as MATERNAL [phone] [facility] ical & CHILD [address] [place] [address] 2019-11-23 2019-11-23 Outpatient Rebeca VILLANUEVA [facility] [id number] Univers 10:45:00 10:45:00 IZZY ity [facility] 2019-11-23 2019-11-23 Orders Doctor ADRI 1.2.840.114 [id number] Univers 00:00:00 00:00:00 Only Unassigned, MELBA 350.1.13.10 ity of [place] [facility] 4.2.7.2.686 [place] as [phone] [address] 2019-08-17 2019-08-17 TelemElvie Diallo [facility] 1.2.840.114 [id number] Univers 08:10:51 16:47:26 ne Visit E SPECIALTY 350.1.13.10 ity of [facility] 4.2.7.2.[place] AT [phone] Ga dic[address] 2019-08-17 2019-08-17 Outpatient ELVIE DOOLEY [facility] [id number] Univers 13:15:00 13:15:00 ity [facility] 2019-08-15 2019-08-15 Outpatient ELVIE DOOLEY [facility] [id number] Univers 10:00:00 10:00:00 ity [facility] 2019-07-24 2019-07-24 Outpatient Rebeca BAE [facility] [id number] Univers 09:00:00 09:00:00 SAMIA ity [facility] 2019-07-20 2019-07-20 Telemjyoti Herbert [facility] 1.2.840.114 [id number] Univers 09:10:58 09:25:58 ne Visit Adalberto PRICE ANALYST 350.1.13.[address] [facility] 4.2.7.2.686 Germain as MATERNAL [phone] [facility] ical & CHILD [address] [place] [address] 2019-07-20 2019-07-20 Outpatient Rebeca HERBERT [facility] [id number] Univers 09:00:00 09:00:00 ADALBERTO ity [facility] 2019-07-20 2019-07-20 Maryann Bae, [facility] [id number] Univers 00:00:00 00:00:00 Samia A SPECIALTY 350.1.13.10 ity of CARE 4.2.7.2.686 Stephanie s CENTER AT [phone] Ga gumaro Mccloud [facility] 2019-07-17 2019-07-17 Telephone Alison Torres [facility] 1.2.840.114 [id number] Univers 00:00:00 00:00:00 PRICE ANALYST 350.1.13.10 it y of REGIONAL 4.2.7.2.686 [place] as MATERNAL [phone] Med ical & CHILD 107 [facility] Results Test Description Test Time Test Comments Results Result Comments Source VITAMIN D, 25 [place] 2022-11-02 06:49:58 Test Item Value Reference Range Interpretation Comme nts VITAMIN D, 25 OH (test 12 NG/ML SEE BELOW L EFFECTIVE 04/26/2022, PLEASE NOTE code = 4958) NEW METHODOLOGY IS ELECTROCHEMILUM INESCENCE BINDING ASSAY. NOTE: 25-HYDROX YVITAMIN D ASSAY INCLUDES 25-HYDROXYVITAM IN D2 AND D3. INTERPRETIVE RA NGES PEDIATRIC (<17 YEARS) . . . . . . . . . . . NG/ML 20-100ADULT: IN SUFFICIENT . . . . . . . . . . . . . . N G/ML <20 SUBOPTIMAL . . . . . . . . . . . . . . . NG/ML 20-29 OPTIMAL . . . . . . . . . . . . . . . . . NG/ML 30-100 TSH, THIRD [id number] 06:49:21 Test Item Value Reference Range Interpretation Comments TSH, THIRD GENERATION (test code 5.040 UIU/ML 0.400-4.100 H = 4881) VITAMIN [id number] 04:58:30 Test Item Value Reference Range Interpretation Comments VITAMIN B-12 (test 231 PG/ML 200-950 UNLESS O THERWISE code = 2840) INDICATED, ALL TESTING PERFORMED AT [facility] [employer] [address] [place] [address] LABOR ATORY DIRECTOR: Cleopatra MOLINA SHIRLEY NUMBER [id number] CAP ACCREDITATION N O. [id number] COMPREHENSIVE METABOLIC [id number] 03:40:07 Test Item Value Reference Range Interpretation Comments GLUCOSE (test code = 102 MG/DL 70-99 H 2216) BUN (test code = 11 MG/DL 6-20 2207) CREATININE (test 0.87 MG/DL 0.60-1.30 code = 2214) eGFR (2020 CKD-EPI) 97 ML/MIN/1.73 >60 (test code = 06646) CALC BUN/CREAT (test 13 RATIO 6-28 code = 2235) SODIUM (test code = 141 MEQ/L 744-430 6225) POTASSIUM (test code 4.4 MEQ/L 3.5-5.4 = 2227) CHLORIDE (test code 104 MEQ/L 95-107 = 221) CARBON DIOXIDE (test 25 MEQ/L 19-31 code = 2206) CALCIUM (test code = 10.0 MG/DL 8.5-10.5 2208) PROTEIN, TOTAL (test 7.0 G/DL 6.1-8.3 code = 222) ALBUMIN (test code = 4.7 G/DL 3.5-5.2 2200) CALC GLOBULIN (test 2.3 G/DL 1.9-3.7 code = 2240) CALC A/G RATIO (test 2.0 RATIO 1.0-2.6 code = 2234) BILIRUBIN, TOTAL 0.4 MG/DL See_Comment [Automated message] (test code = 2207) The syste m which generated this result transmit reina reference range : <=1.2. The refe rence range was not u sed to interpret th is result as normal/abnormal . ALKALINE PHOSPHATASE 75 U/L 39-117 (test code = 2204) AST (test code = 17 U/L 9-40 2217) ALT (test code = 13 U/L 5-40 2218) LIPID [id number] 03:40:07 Test Item Value Reference Range Interpretation Comments CHOLESTEROL (test 175 MG/DL <200 code = 2210) TRIGLYCERIDES (test 83 MG/DL <150 code = 2232) HDL CHOLESTEROL (test 46 MG/DL >39 code = 2220) CALC LDL CHOL (test 112 MG/DL <100 H NOTE: C ALCULATED LDL code = 2237) IS BASED ON JEWEL-CHAVEZ METHOD WHICHINCLUDES ADJUSTABLE TRIGLYCERIDE:VL DL CHOLESTEROL RAT IO.THIS FACTOR VARIES B Y MEASURED TRIGLY CERIDE AND NON-HDLCHOL ESTEROL CONCENTRATIONS WITH INCREASED CALCU LATED LDL SEENIN HIGH ER TRIGLYCERIDE OR LOWER NON-HDL SPECIME NS. FOR MOREINFORMATION , SEE CLIENT ANNOUNCE MENT AT [email or web address] RISK RATIO LDL/HDL 2.43 RATIO <3.22 (test code = 2238) HEMOGLOBIN [id number] 02:34:49 Test Item Value Reference Range Interpretation Comments HEMOGLOBIN A1c (test code = 77921) 5.5 % 4.2-5.6 CBC W/AUTO DIFF WITH [id number] 01:53:27 Test Item Value Reference Range Interpretation Comments WBC (test code = 11.8 K/UL 3.5-11.0 H 1001) RBC (test code = 4.17 M/UL 3.80-5.40 1002) HEMOGLOBIN (test code 12.7 G/DL 11.5-15.5 = 1003) HEMATOCRIT (test code 37.9 % 34.0-45.0 = 1004) MCV (test code = 90.9 fL 80.0-99.0 1005) MCH (test code = 30.5 PG 25.0-33.0 1006) MCHC (test code = 33.5 G/DL 31.0-36.0 1007) RDW (test code = 11.9 % 11.5-15.0 1038) NEUTROPHILS (test 69.7 % code = 1008) LYMPHOCYTES (test 24.0 % code = 1010) MONOCYTES (test code 4.0 % = 1011) EOSINOPHILS (test 1.3 % code = 1012) BASOPHILS (test code 0.7 % = 1013) IMMATURE GRANULOCYTES 0.3 % (test code = 1036) NUCLEATED RBCS (test 0.0 /100 WBC'S See_Comment [Aut omated code = 1065) message] The sy stem which generated this result transmitted reference range : 0.0. The refere nce range was not u sed to interpret th is result as normal/abnormal . PLATELET COUNT (test 278 K/UL 130-400 code = 1015) ABSOLUTE NEUTROPHILS 8.20 K/UL 1.50-7.50 H (test code = 1066) ABSOLUTE LYMPHOCYTES 2.82 K/UL 1.00-4.00 (test code = 1067) ABSOLUTE MONOCYTES 0.47 K/UL 0.20-1.00 (test code = 1068) ABSOLUTE EOSINOPHILS 0.15 K/UL 0.00-0.50 (test code = 1040) ABSOLUTE BASOPHILS 0.08 K/UL 0.00-0.20 (test code = 1069) ABS IMMATURE 0.03 K/UL 0.00-0.10 GRANULOCYTES (test code = 1020) ABS NUCLEATED RBCS 0.00 K/UL 0.00-0.11 (test code = 38414) POCT [id number] 11:33:00 Test Item Value Reference Range Interpretation Comments POCT PREG (test code = 1605) Negative On board controls acceptable with C Yes Line (test code = 3574) POCT PREG LOT # (test code = 3575) POCT PREG TEST DATE (test code = 3576) Lab Interpretation (test code = Normal 60629-6) [facility] K[facility] Right Wo Cont
[2022-12-20 23:02] LABS: SARS-CoV-2 Antigen Rapid Res Negative (Negative)
--- NOTE | 2022-12-20 23:54 | ER ---
Nurse's Notes [facility] Name: Julián Stokes Age: 22 yrs Sex: Female : 2000 Arrival Date: 12/20/2022 Time: 22:17 Bed 12 Private MD: Diagnosis: Cough;Acute pharyngitis, unspecified Presentation: 12/20 22:23 Chief complaint: Patient states: cough/congestion/runny nose/body aches X3 days. lg3 Coronavirus screen: Client denies travel out of the [place] in the last 14 days. Client presents with at least one sign or symptom that may indicate coronavirus-19. Standard/surgical mask placed on the client. Ebola Screen: No symptoms or risks identified at this time. Initial Sepsis Screen: Does the patient meet any 2 criteria? No. Patient's initial sepsis screen is negative. Does the patient have a suspected source of infection? No. Patient's initial sepsis screen is negative. Risk Assessment: Do you want to hurt yourself or someone else? Patient reports no desire to harm self or others. Onset of symptoms was December 17, 2022. 22:23 Method Of Arrival: Ambulatory lg3 22:23 Acuity: JOSELYN 4 lg3 Triage Assessment: 22:25 General: Appears in no apparent distress. uncomfortable, Behavior is calm, cooperative. lg3 Pain: Denies pain. EENT: Reports nasal congestion nasal discharge. Neuro: No deficits noted. Iyer Agitation-Sedation Scale (RASS): 0 - Alert and Calm Level of Consciousness is awake, alert, obeys commands, Oriented to person, place, time, situation. Cardiovascular: No deficits noted. Denies chest pain, shortness of breath, Capillary refill < 3 seconds Clubbing of nail beds is absent JVD is absent Patient's skin is warm and dry. Respiratory: Reports cough that is persistent. GI: No deficits noted. No signs and/or symptoms were reported involving the gastrointestinal system. : No deficits noted. No signs and/or symptoms were reported regarding the genitourinary system. Derm: No deficits noted. No signs and/or symptoms reported regarding the dermatologic system. Skin is intact, is healthy with good turgor, Skin is dry, Skin is normal, Skin temperature is warm. Musculoskeletal: Reports generalized body aches. [employer]: 22:25 LMP 11/2022 lg3 Historical: - Allergies: 22:25 No Known Allergies; lg3 - Home Meds: 22:25 None [Active]; lg3 - PMHx: 22:25 None; lg3 - PSHx: 22:25 breast reduction; knee surgery; lg3 - Immunization history:: Adult Immunizations up to date, Client reports receiving the 1st dose of the Covid vaccine. - Social history:: Smoking status: Patient reports the use of cigarette tobacco products, denies chronic smoking, but will smoke occasionally, Reported history of juuling and/or vaping. Patient uses alcohol, occasionally. Screenin:32 [facility] ED Fall Risk Assessment (Adult) History of falling in the last 3 months, kl including since admission No falls in past 3 months (0 pts) Confusion or Disorientation No (0 pts) Intoxicated or Sedated No (0 pts) Impaired Gait No (0 pts) Mobility Assist Device Used No (0 pt) Altered Elimination No (0 pt) Score/Fall Risk Level 0 - 2 = Low Risk Oriented to surroundings, Maintained a safe environment. Abuse screen: Denies threats or abuse. Nutritional screening: No deficits noted. Tuberculosis screening: No symptoms or risk factors identified. Assessment: 22:31 General: Appears uncomfortable, Behavior is calm, cooperative. Respiratory: Airway is kl patent Trachea midline Respiratory effort is even, unlabored, Respiratory pattern is regular, symmetrical. GI: No deficits noted. No signs and/or symptoms were reported involving the gastrointestinal system. : No deficits noted. No signs and/or symptoms were reported regarding the genitourinary system. 12/21 00:00 Reassessment: Patient appears in no apparent distress at this time. Vital Signs: 12/20 22:23 BP 152 / 93; Pulse 86; Resp 19 S; Temp 99.1(O); Pulse Ox 100% on R/A; Weight 127.01 kg; lg3 Height 5 ft. 11 in. (R); 22:23 Body Mass Index 39.05 (127.01 kg, 180.34 cm) 3 ED Course: 22:19 Patient arrived in ED. mr 22:25 Triage completed. lg3 22:25 Mohan Melo PA is PHCP. cp 22:25 Mohan Tubbs MD is Attending Physician. cp 22:25 Arm band placed on right wrist. lg3 22:32 No provider procedures requiring assistance completed. COVID swab sent to lab. Flu kl and/or RSV swab sent to lab. Strep swab sent to lab. 22:33 Flu Sent. kl 22:33 SARS RAPID Sent. kl 22:33 Strep Sent. kl 12/21 00:00 Patient did not have IV access during this emergency room visit. kl Administered Medications: No medications were administered Medication: 12/20 22:33 VIS not applicable for this client. francia Outcome: 23:53 Discharge ordered by . mundo 12/21 00:00 Discharged to home ambulatory. francia Condition: good Discharge instructions given to patient, Instructed on discharge instructions, follow up and referral plans. Demonstrated understanding of instructions, follow-up care, medications, Prescriptions given X 1. 00:00 Patient left the ED. Signatures: Albina López, RN Tata Aguirre mr Mohan Melo PA PA cp Gibson, Lacie, RN RN lg3
--- NOTE | 2022-12-20 23:54 | EDPHYS ---
Physician Documentation [facility] Name: Julián Stokes Age: 22 yrs Sex: Female : 2000 Arrival Date: 12/20/2022 Time: 22:17 Bed 12 Private MD: ED Physician Mohan Tubbs HPI: 12/20 22:30 This 22 yrs old Black Female presents to ER via Ambulatory with complaints of Flu cp Symptoms. 22:30 The patient or guardian reports cough, that is intermittent, flu symptoms, sore throat, cp body aches, congestion. Onset: The symptoms/episode began/occurred 3 day(s) ago. Associated signs and symptoms: Pertinent negatives: chest pain, diarrhea, fever, vomiting. Severity of symptoms: in the emergency department the symptoms are unchanged despite home interventions. MANAGER EPIC: 22:25 LMP 11/2022 lg3 Historical: - Allergies: 22:25 No Known Allergies; lg3 - Home Meds: 22:25 None [Active]; lg3 - PMHx: 22:25 None; lg3 - PSHx: 22:25 breast reduction; knee surgery; lg3 - Immunization history:: Adult Immunizations up to date, Client reports receiving the 1st dose of the Covid vaccine. - Social history:: Smoking status: Patient reports the use of cigarette tobacco products, denies chronic smoking, but will smoke occasionally, Reported history of juuling and/or vaping. Patient uses alcohol, occasionally. ROS: 22:33 Constitutional: Positive for body aches, Negative for fever, poor PO intake. cp 22:33 Eyes: Negative for injury, pain, redness, and discharge. cp 22:33 ENT: Positive for sore throat, Negative for drainage from ear(s), ear pain, difficulty swallowing, difficulty handling secretions. 22:33 Neck: Negative for pain with movement, pain at rest, stiffness. 22:33 Cardiovascular: Negative for chest pain, palpitations. 22:33 Respiratory: Positive for cough, Negative for shortness of breath, wheezing. 22:33 Abdomen/GI: Negative for abdominal pain, nausea, vomiting, and diarrhea. 22:33 Skin: Negative for rash. 22:33 Neuro: Negative for altered mental status, dizziness, headache, weakness. 22:33 All other systems are negative. Exam: 22:37 Constitutional: The patient appears in no acute distress, alert, awake, non-toxic, well cp developed, well nourished, obese. 22:37 Head/Face: Normocephalic, atraumatic. cp 22:37 Eyes: Periorbital structures: appear normal, Conjunctiva: normal, no exudate, no injection, Sclera: no appreciated abnormality, Lids and lashes: appear normal, bilaterally. 22:37 ENT: External ear(s): are unremarkable, Ear canal(s): are normal, clear, TM's: dullness, bilaterally, Nose: is normal, Mouth: Lips: moist, Oral mucosa: pink and intact, moist, Posterior pharynx: is normal, airway is patent, no erythema, no exudate. 22:37 Neck: ROM/movement: is normal, is supple, without pain, no range of motions limitations, no meningismus, no nuchal rigidity, Lymph nodes: no appreciated lymphadenopathy. 22:37 Chest/axilla: Inspection: normal. 22:37 Cardiovascular: Rate: normal, Rhythm: regular. 22:37 Respiratory: the patient does not display signs of respiratory distress, Respirations: normal, no use of accessory muscles, no retractions, labored breathing, is not present, Breath sounds: are clear throughout, no decreased breath sounds, no stridor, no wheezing. 22:37 Abdomen/GI: Inspection: abdomen appears normal, Palpation: abdomen is soft and non-tender, in all quadrants. 22:37 Back: CVA tenderness, is absent. 22:37 Skin: no rash present. Vital Signs: 22:23 BP 152 / 93; Pulse 86; Resp 19 S; Temp 99.1(O); Pulse Ox 100% on R/A; Weight 127.01 kg; lg3 Height 5 ft. 11 in. (R); 22:23 Body Mass Index 39.05 (127.01 kg, 180.34 cm) lg3 MDM: 22:28 Patient medically screened. viviane 23:00 Differential diagnosis: bronchitis, flu, URI, strep throat. cp 23:52 Data reviewed: vital signs, nurses notes, lab test result(s). cp 23:52 Antibiotic administration: Not indicated, the patient has a suspected viral illness. cp Counseling: I had a detailed discussion with the patient and/or guardian regarding the historical points, exam findings, and any diagnostic results supporting the discharge/admit diagnosis, lab results, to return to the emergency department if symptoms worsen or persist or if there are any questions or concerns that arise at home. 12/20 22:25 Order name: SARS RAPID; Complete Time: 23:12 kl 12/20 23:12 Interpretation: Reviewed. cp 12/20 22:25 Order name: Flu; Complete Time: 23:29 kl 12/20 23:29 Interpretation: Reviewed. cp 12/20 22:31 Order name: Strep; Complete Time: 23:29 cp 12/20 23:29 Interpretation: Reviewed. cp 12/20 23:29 Order name: Throat Culture EDMS Administered Medications: No medications were administered Disposition Summary: 12/20/22 23:53 Discharge Ordered Location: Home cp Problem: new cp Symptoms: are unchanged cp Condition: Stable cp Diagnosis - Cough cp - Acute pharyngitis, unspecified cp Followup: cp - With: Private Physician - When: 2 - 3 days - Reason: Worsening of condition Discharge Instructions: - Discharge Summary Sheet cp - Pharyngitis cp - Sore Throat cp - Cough, Adult cp - Form - Excuse from Work, School, or Physical Activity cp Forms: - Medication Reconciliation Form cp - Thank You Letter cp - Antibiotic Education cp - Prescription Opioid Use cp - Patient Portal Instructions cp - Leadership Thank You Letter cp Prescriptions: - Bromfed DM 2-30-10 mg/5 mL Oral syrup - administer 10 milliliter by ORAL route every 6 hours; 180 milliliter; Refills: cp 0, Product Selection Permitted Signatures: Dispatcher [employer] EDMS Mohan Tubbs MD MD cha Page, Corey, PA PA cp Gibson, Lacie, RN RN lg3
[2022-12-21 00:15] VITALS: BP 152/93; TEMP 99.1; O2SAT 100
== END 2022-12-21 | disposition home or self-care (01) ==
LOC: ER 22:17
DX: J02.9 Acute pharyngitis, unspecified (principal); F17.210 Nicotine dependence, cigarettes, uncomplicated; R05.9 Cough, unspecified; Z20.822 Contact with and (suspected) exposure to COVID-19
CPT/HCPCS: 36415; 87070; 87081; 87804; 87811; 99283

== ENCOUNTER → 2023-05-12 | Emergency (ER) | payer OTHER ==
--- OUTSIDE RECORDS SUMMARY | 2023-05-12 14:59 | XMS REPORT | Continuity of Care Document ---
Author Name Unknown Address [address] [facility] [place] [address] [facility] thconnect Address [address] 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 Role Phone PCP, PATIENT DOES NOT HAVE A Primary Care Physic madison Unavailable ELVIE FAN Attending Clinician Unavailable KELLY GLASS Attending Clinician Unavailab Robert OLIVAS, Kelly Attending Clinician [phone] Elvie Fan MD Attending Clinician [phone] DANIS ZHONG Attending Clinician Unavailabl e Doctor Unassigned, Landen Attending Clinician U laurie Manrique RN, Randi Attending Clinician Unavailjonathan e Only, Adc Test Attending Clinician Unavailable Dhiraj June MD Attending Clinician [phone] DHIRAJ JUNE Attending Clinician UnavailJocelin Trejo MD Attending Clinician [phone] Leyda Wang Attending Clinician [phone] Izzy Chase Attending Clinician [phone] IZZY VILLANUEVA Attending Clinician UnavailSAMIA Gonzalez Attending Clinician Unavailable Adalberto Mendes Attending Clinician [phone] ADALBERTO HERBERT Attending Clinician Unavailable Samia Bae MD Attending Clinician Brian WALDRONAlison Minor Attending Clinician ELVIE FAN Admitting Clinician Unavailable Elvie Fan MD Admitting Clinician [phone] Payers Payer Name Policy Type Policy Number Effective Date Expirati on Date Source [employer] MEDICAID [id number] 2016 00:00:00 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 [id number] 2022 00:00:00 [facility] [id number] [facility] [id number] [facility] [id number] [facility] [id number] [facility] [id number] [facility] [id number] [facility] [id number] [facility] [id number] [facility] [id number] [facility] [id number] [facility] [id number] [facility] Problems Condition Name Condition Details Condition Category Status Onset Date Resolution Date Last Treatment Date Treating Clinician Comments Source Morbid obesity with body mass index of 40.0-49.9 Morbid obesity with body mass index of 40.0-49.9 Disease Active 06-17 00:00: 00 [facility] Morbid obesity with body mass index of 40.0-49.9 Morbid obesity with body mass index of 40.0-49.9 Disease Active 06-17 00:00: 00 [facility] Macromasti a Macromasti a Disease Active 2019-04 2 00:00: 00 Overview: Formattin g of this note might be different from the original. Added automatic ally from request for surgery [id number] [facility] Rupture of anterior cruciate ligament of right knee Rupture of anterior cruciate ligament of right knee Disease Active 2019-04 0-30 00:00: 00 [facility] Acute medial meniscus tear of right knee Acute medial meniscus tear of right knee Disease Active 2019-04 0 00:00: 00 [facility] High risk homosexual behavior High risk homosexual behavior Disease Active 11-22 00:00: 00 [facility] Passive smoke exposure Passive smoke exposure Disease Active 05-25 00:00: 00 [facility] Acanthosis nigricans Acanthosis nigricans Disease Active 05-25 00:00: 00 [facility] Obesity (BMI 35.0-39.9 without comorbidit y) Obesity (BMI 35.0-39.9 without comorbidit y) Disease Active 06-09 00:00: 00 [facility] Allergies, Adverse Reactions, Alerts Allergy Name Allergy Type Status Severity Reaction(s) Onset Date Inactive Date Treating Clinician Comments Source NO KNOWN ALLERGIE S Drug Class Active [facility] Social History Social Habit Start Date Stop Date Quantity Comments Source History of Tobacco Use [facility] Sex Assigned At [facility]2 (event) Not sure [facility] Alcohol intake 2023-02-25 00:00:00 2023-02-25 00:00:00 0 /d [facility] History of Social function 2020-06-17 00:00:00 2020-06-17 00:00:00 [facility] Tobacco use and exposure 2016-06-09 00:00:00 2016-06-09 00:00:00 Smokeless tobacco non-user [facility] Tobacco Comment 2016-06-09 00:00:00 2016-06-09 00:00:00 step father smokes outside [facility] Smoking Status Start Date Stop Date Source Never smoked tobacco [facility] Medications Ordered Medication Name Filled Medication Name Start Date Stop Date Current Medication? Ordering Clinician Indication Dosage Frequency Signature (SIG) Comments Components Source silver sulfADIAZIN E (SILVADENE) 1 % cream 07-09 00:00: 00 Yes [id number] Apply to area(s) 2 (two) times daily. [facility] silver sulfADIAZIN E (SILVADENE) 1 % cream 07-09 00:00: 00 Yes [id number] Apply to area(s) 2 (two) times daily. [facility] silver sulfADIAZIN E (SILVADENE) 1 % cream 07-09 00:00: 00 Yes [id number] Apply to area(s) 2 (two) times daily. [facility] silver sulfADIAZIN E (SILVADENE) 1 % cream 07-09 00:00: 00 Yes [id number] Apply to area(s) 2 (two) times daily. [facility] silver sulfADIAZIN E (SILVADENE) 1 % cream 07-09 00:00: 00 Yes [id number] Apply to area(s) 2 (two) times daily. [facility] silver sulfADIAZIN E (SILVADENE) 1 % cream 07-09 00:00: 00 Yes [id number] Apply to area(s) 2 (two) times daily. [facility] silver sulfADIAZIN E (SILVADENE) 1 % cream 07-09 00:00: 00 Yes [id number] Apply to area(s) 2 (two) times daily. [facility] silver sulfADIAZIN E (SILVADENE) 1 % cream 07-09 00:00: 00 Yes [id number] Apply to area(s) 2 (two) times daily. [facility] silver sulfADIAZIN E (SILVADENE) 1 % cream 07-09 00:00: 00 Yes [id number] Apply to area(s) 2 (two) times daily. [facility] HYDROmorpho ne (DILAUDID) injection 0.2 mg 06-17 17:41: 09 Yes .2mg 0.2 mg, Slow IV Push, Q5MIN PRN, 10 doses, Starting Tue06/17/20 at 1141, Until Discontinu ed, Routine, Pain (scale 7-10), PACU
Us e approved by (Faculty): PACU USE -ANESTHESI A SERVICE-HY DROMORPHON E INJECTIONS [facility] FENTanyl PF (SUBLIMAZE (PF)) injection 25 mcg 06-17 17:41: 09 Yes 25ug 25 mcg, Slow IV Push, Q5MIN PRN, 4 doses, Starting 06/17/20 at 1141, Until Discontinu ed, Routine, Pain (scale 4-6), PACU [facility] ondansetron (ZOFRAN (PF)) injection 4 mg 06-17 17:41: 09 Yes 4mg 4 mg, Slow IV Push, PRN, 1 dose, Starting 06/17/20 at 1141, Until Discontinu ed, Routine, Nausea and Vomiting (N/V), PACU [facility] gentian shelly 1 % solution 06-17 15:28: 00 Yes PRN, Starting 06/17/20 at 0928, Until Discontinu ed, Routine, Intra-op [facility] bupivacaine (preserv free) 0.5% (SENSORCAIN E MPF) 0.5 % (5 mg/mL) 30 mL, bupivacaine liposome (PF) (EXPAREL (PF)) 1.3 % (13.3 mg/mL) 266 mg, NaCl 0.9% (NS) 50 mL 06-17 14:44: 00 Yes PRN, Starting 06/17/20 at 0844, Intra-op [facility] gabapentin (NEURONTIN) tablet 600 mg 06-17 11:30: 00 06-17 11:47 :00 No 600mg 600 mg, Oral, ONCE, 1 dose, 06/17/20 at 0530, Routine, DSU Pre-op [facility] ceFAZolin in dextrose (iso-os) (ANCEF) 2 gram/100 mL Piggyback 2 g 06-17 11:30: 00 06-17 12:56 :00 No 2000mg 2 g (2,000 mg), IV Piggyback, ONCE, 1 dose, 06/17/20 at 0530, 100 mL, DSU Pre-op
Reason for Anti-Infec tive: Surgical Prophylaxi s
Surgi harvey Prophylaxi s: Other (see Comments)< br>Duratio n of therapy: within 24 hours of surgery [facility] lactated ringers IV infusion 1,000 mL 2020-0 06-17 11:30: 00 06-17 11:48 :00 No 1000mL at 42 mL/hr, 1,000 mL, IV Infusion, ONCE, 1 dose, 06/17/20 at 0530, Routine, DSU Pre-op [facility] gabapentin 600 mg tablet 2020-0 3 00:00: 00 07-02 04:59 :00 No 600mg Take 1 tablet by mouth 3 (three) times daily for 14 days. [facility] gabapentin 600 mg tablet 2020-0 06-17 00:00: 00 07-02 04:59 :00 No 600mg Take 1 tablet by mouth 3 (three) times daily for 14 days. [facility] gabapentin 600 mg tablet 2020-0 06-17 00:00: 00 07-02 04:59 :00 No 600mg Take 1 tablet by mouth 3 (three) times daily for 14 days. [facility] gabapentin 600 mg tablet 2020-0 02 00:00: 00 07-02 04:59 :00 No 600mg Take 1 tablet by mouth 3 (three) times daily for 14 days. [facility] chlorhexidi ne 4 % external liquid 0 2-24 00:00: 00 Yes [id number] Apply to area(s) once daily as needed for Wound care. [facility] chlorhexidi ne 4 % external liquid 2020-0 2-24 00:00: 00 Yes [id number] Apply to area(s) once daily as needed for Wound care. [facility] chlorhexidi ne 4 % external liquid 2020-0 2-24 00:00: 00 Yes [id number] Apply to area(s) once daily as needed for Wound care. [facility] chlorhexidi ne 4 % external liquid 2020-0 2-24 00:00: 00 Yes [id number] Apply to area(s) once daily as needed for Wound care. [facility] chlorhexidi ne 4 % external liquid 2-24 00:00: 00 Yes [id number] Apply to area(s) once daily as needed for Wound care. [facility] gabapentin ER 600 mg tablet, extended release 24 hr 2-24 00:00: 00 06-26 05:59 :00 No [id number] 600mg Take 1 tablet by mouth every 8 (eight) hours for 14 days. [facility] acetaminoph en (TYLENOL EXTRA STRENGTH) 500 mg tablet 2-24 00:00: 00 06-26 05:59 :00 No [id number] 1000mg Take 2 tablets by mouth every 8 (eight) hours for 14 days. [facility] celecoxib (CELEBREX) 200 mg capsule 2-24 00:00: 00 06-26 05:59 :00 No [id number] 200mg Take 1 capsule by mouth 2 (two) times daily with meals for 14 days. [facility] gabapentin ER 600 mg tablet, extended release 24 hr 2-24 00:00: 00 06-26 05:59 :00 No [id number] 600mg Take 1 tablet by mouth every 8 (eight) hours for 14 days. [facility] acetaminoph en (TYLENOL EXTRA STRENGTH) 500 mg tablet 2-24 00:00: 00 06-26 05:59 :00 No [id number] 1000mg Take 2 tablets by mouth every 8 (eight) hours for 14 days. [facility] celecoxib (CELEBREX) 200 mg capsule 0 2-24 00:00: 00 06-26 05:59 :00 No [id number] 200mg Take 1 capsule by mouth 2 (two) times daily with meals for 14 days. [facility] gabapentin ER 600 mg tablet, extended release 24 hr 2-24 00:00: 00 06-26 05:59 :00 No [id number] 600mg Take 1 tablet by mouth every 8 (eight) hours for 14 days. [facility] acetaminoph en (TYLENOL EXTRA STRENGTH) 500 mg tablet 2-24 00:00: 00 06-26 05:59 :00 No [id number] 1000mg Take 2 tablets by mouth every 8 (eight) hours for 14 days. [facility] celecoxib (CELEBREX) 200 mg capsule 2-24 00:00: 00 06-26 05:59 :00 No [id number] 200mg Take 1 capsule by mouth 2 (two) times daily with meals for 14 days. [facility] gabapentin ER 600 mg tablet, extended release 24 hr 2-24 00:00: 00 06-26 05:59 :00 No [id number] 600mg Take 1 tablet by mouth every 8 (eight) hours for 14 days. [facility] acetaminoph en (TYLENOL EXTRA STRENGTH) 500 mg tablet 224 00:00: 00 06-26 05:59 :00 No [id number] 1000mg Take 2 tablets by mouth every 8 (eight) hours for 14 days. [facility] celecoxib (CELEBREX) 200 mg capsule 224 00:00: 00 06-26 05:59 :00 No [id number] 200mg Take 1 capsule by mouth 2 (two) times daily with meals for 14 days. [facility] gabapentin ER 600 mg tablet, extended release 24 hr 2-24 00:00: 00 06-26 05:59 :00 No [id number] 600mg Take 1 tablet by mouth every 8 (eight) hours for 14 days. [facility] acetaminoph en (TYLENOL EXTRA STRENGTH) 500 mg tablet 2-24 00:00: 00 06-26 05:59 :00 No [id number] 1000mg Take 2 tablets by mouth every 8 (eight) hours for 14 days. [facility] celecoxib (CELEBREX) 200 mg capsule 2-24 00:00: 00 06-26 05:59 :00 No [id number] 200mg Take 1 capsule by mouth 2 (two) times daily with meals for 14 days. [facility] gabapentin ER 600 mg tablet, extended release 24 hr 06-11 00:00: 00 06-26 05:59 :00 No [id number] 600mg Take 1 tablet by mouth every 8 (eight) hours for 14 days. [facility] acetaminoph en (TYLENOL EXTRA STRENGTH) 500 mg tablet 06-11 00:00: 00 06-26 05:59 :00 No [id number] 1000mg Take 2 tablets by mouth every 8 (eight) hours for 14 days. [facility] celecoxib (CELEBREX) 200 mg capsule 06-11 00:00: 00 06-26 05:59 :00 No [id number] 200mg Take 1 capsule by mouth 2 (two) times daily with meals for 14 days. [facility] acetaminoph en (TYLENOL EXTRA STRENGTH) 500 mg tablet 06-11 00:00: 00 06-26 05:59 :00 No [id number] 1000mg Take 2 tablets by mouth every 8 (eight) hours for 14 days. [facility] celecoxib (CELEBREX) 200 mg capsule 06-11 00:00: 00 06-26 05:59 :00 No [id number] 200mg Take 1 capsule by mouth 2 (two) times daily with meals for 14 days. [facility] acetaminoph en (TYLENOL EXTRA STRENGTH) 500 mg tablet 24 00:00: 00 06-26 05:59 :00 No [id number] 1000mg Take 2 tablets by mouth every 8 (eight) hours for 14 days. [facility] celecoxib (CELEBREX) 200 mg capsule 24 00:00: 00 06-26 05:59 :00 No [id number] 200mg Take 1 capsule by mouth 2 (two) times daily with meals for 14 days. [facility] acetaminoph en (TYLENOL EXTRA STRENGTH) 500 mg tablet 24 00:00: 06-26 05:59 :00 No [id number] 1000mg Take 2 tablets by mouth every 8 (eight) hours for 14 days. [facility] celecoxib (CELEBREX) 200 mg capsule 06-11 00:00: 00 06-26 05:59 :00 No [id number] 200mg Take 1 capsule by mouth 2 (two) times daily with meals for 14 days. [facility] acetaminoph en (TYLENOL EXTRA STRENGTH) 500 mg tablet 06-11 00:00: 00 06-26 05:59 :00 No [id number] 1000mg Take 2 tablets by mouth every 8 (eight) hours for 14 days. [facility] celecoxib (CELEBREX) 200 mg capsule 06-11 00:00: 00 06-26 05:59 :00 No [id number] 200mg Take 1 capsule by mouth 2 (two) times daily with meals for 14 days. [facility] chlorhexidi ne 4 % external liquid 06-11 00:00: 06-17 00:00 :00 No [id number] Apply to area(s) once daily as needed for Wound care. [facility] gabapentin ER 600 mg tablet, extended release 24 hr 06-11 00:00: 00 06-17 00:00 :00 No [id number] 600mg Take 1 tablet by mouth every 8 (eight) hours for 14 days. [facility] scopolamine transdermal 1 mg over 3 days patch 06-11 00:00: 00 06-15 05:59 :00 No [id number] 1.5mg Apply 1 Patch to area(s) every 72 (seventy-t wo) hours for 3 days. [facility] scopolamine transdermal 1 mg over 3 days patch 06-11 00:00: 00 06-15 05:59 :00 No [id number] 1.5mg Apply 1 Patch to area(s) every 72 (seventy-t wo) hours for 3 days. [facility] scopolamine transdermal 1 mg over 3 days patch 2021-0 2-24 00:00: 00 06-15 05:59 :00 No [id number] 1.5mg Apply 1 Patch to area(s) every 72 (seventy-t wo) hours for 3 days. [facility] ibuprofen 600 mg tablet 2019-04 00:00: 00 Yes 600mg Take 600 mg by mouth every 6 (six) hours as needed for Pain (scale 4-6). [facility] ibuprofen 600 mg tablet 2019-04 00:00: 00 Yes 600mg Take 600 mg by mouth every 6 (six) hours as needed for Pain (scale 4-6). [facility] ibuprofen 600 mg tablet 2019-04 00:00: 00 Yes 600mg Take 600 mg by mouth every 6 (six) hours as needed for Pain (scale 4-6). [facility] ibuprofen 600 mg tablet 2019-04 00:00: 00 Yes 600mg Take 600 mg by mouth every 6 (six) hours as needed for Pain (scale 4-6). [facility] ibuprofen 600 mg tablet 2019-04 00:00: 00 Yes 600mg Take 600 mg by mouth every 6 (six) hours as needed for Pain (scale 4-6). [facility] ibuprofen 600 mg tablet 2019-04 00:00: 00 05-14 00:00 :00 No 600mg Take 600 mg by mouth every 6 (six) hours as needed for Pain (scale 4-6). [facility] ibuprofen 600 mg tablet 2019-04 00:00: 00 05-14 00:00 :00 No 600mg Take 600 mg by mouth every 6 (six) hours as needed for Pain (scale 4-6). [facility] ibuprofen 600 mg tablet 2019-04 00:00: 00 05-14 00:00 :00 No 600mg Take 600 mg by mouth every 6 (six) hours as needed for Pain (scale 4-6). [facility] ibuprofen 600 mg tablet 2019-04 00:00: 00 05-14 00:00 :00 No 600mg Take 600 mg by mouth every 6 (six) hours as needed for Pain (scale 4-6). [facility] Mobic 7.5 MG Mobic 7.5 MG 2019-04 00:00: 03-12 00:00 :00 No 1{table t} QD Mobic 7.5 MG Mobic 7.5 MG Mobic 7.5 MG 2019-04 00:00: 03-12 00:00 :00 No 1{table t} QD Mobic 7.5 MG Mobic 7.5 MG Mobic 7.5 MG 2019-04 00:00: 03-12 00:00 :00 No 1{table t} QD Mobic 7.5 MG acetaminoph en (TYLENOL) tablet 1,000 mg 2019-04 21:00: 00 01-19 20:01 :00 No 1000mg 1,000 mg, Oral, ONCE, 1 dose, 01/20/20 at 1600, [place] [facility] traMADoL 50 mg tablet 2019-04 00:00: 00 Yes [id number] 50mg Take 1 tablet by mouth every 8 (eight) hours as needed for Pain (scale 7-10) for up to 15 doses. Indication s: acute pain [facility] traMADoL 50 mg tablet 2019-04 00:00: 00 Yes [id number] 50mg Take 1 tablet by mouth every 8 (eight) hours as needed for Pain (scale 7-10) for up to 15 doses. Indication s: acute pain [facility] traMADoL 50 mg tablet 2019-04 00:00: 00 Yes [id number] 50mg Take 1 tablet by mouth every 8 (eight) hours as needed for Pain (scale 7-10) for up to 15 doses. Indication s: acute pain [facility] traMADoL 50 mg tablet 2019-04 00:00: 00 Yes [id number] 50mg Take 1 tablet by mouth every 8 (eight) hours as needed for Pain (scale 7-10) for up to 15 doses. Indication s: acute pain [facility] traMADoL 50 mg tablet 2019-04 00:00: 00 Yes [id number] 50mg Take 1 tablet by mouth every 8 (eight) hours as needed for Pain (scale 7-10) for up to 15 doses. Indication s: acute pain [facility] traMADoL 50 mg tablet 2019-04 0- 00:00: 00 Yes [id number] 50mg Take 1 tablet by mouth every 8 (eight) hours as needed for Pain (scale 7-10) for up to 15 doses. Indication s: acute pain [facility] traMADoL 50 mg tablet 2019-04 0- 00:00: 00 Yes [id number] 50mg Take 1 tablet by mouth every 8 (eight) hours as needed for Pain (scale 7-10) for up to 15 doses. Indication s: acute pain [facility] traMADoL 50 mg tablet 2019-04 0 00:00: 00 Yes [id number] 50mg Take 1 tablet by mouth every 8 (eight) hours as needed for Pain (scale 7-10) for up to 15 doses. Indication s: acute pain [facility] traMADoL 50 mg tablet 2019-04 0 00:00: 00 Yes [id number] 50mg Take 1 tablet by mouth every 8 (eight) hours as needed for Pain (scale 7-10) for up to 15 doses. Indication s: acute pain [facility] traMADoL 50 mg tablet 2019-04 0 00:00: 00 Yes [id number] 50mg Take 1 tablet by mouth every 8 (eight) hours as needed for Pain (scale 7-10) for up to 15 doses. Indication s: acute pain [facility] traMADoL 50 mg tablet 2019-04 0- 00:00: 00 05-14 00:00 :00 No [id number] 50mg Take 1 tablet by mouth every 8 (eight) hours as needed for Pain (scale 7-10) for up to 15 doses. Indication s: acute pain [facility] traMADoL 50 mg tablet 2019-04 0- 00:00: 00 05-14 00:00 :00 No [id number] 50mg Take 1 tablet by mouth every 8 (eight) hours as needed for Pain (scale 7-10) for up to 15 doses. Indication s: acute pain [facility] traMADoL 50 mg tablet 2019-04 0- 00:00: 00 05-14 00:00 :00 No [id number] 50mg Take 1 tablet by mouth every 8 (eight) hours as needed for Pain (scale 7-10) for up to 15 doses. Indication s: acute pain [facility] traMADoL 50 mg tablet 2019-04 0-04 00:00: 00 05-14 00:00 :00 No [id number] 50mg Take 1 tablet by mouth every 8 (eight) hours as needed for Pain (scale 7-10) for up to 15 doses. Indication s: acute pain [facility] ibuprofen 800 mg tablet 2019-04 0-04 00:00: 00 01-19 00:00 :00 No [id number] 800mg Take 1 tablet by mouth every 8 (eight) hours as needed for Pain (scale 4-6) for up to 30 doses. [facility] ibuprofen 800 mg tablet 2019-0 4- 00:00: 00 Yes [id number] 800mg Take 1 tablet by mouth every 8 (eight) hours. [facility] ibuprofen 800 mg tablet 0 4- 00:00: 00 Yes [id number] 800mg Take 1 tablet by mouth every 8 (eight) hours. [facility] ibuprofen 800 mg tablet 2019-0 4- 00:00: 00 Yes [id number] 800mg Take 1 tablet by mouth every 8 (eight) hours. [facility] ibuprofen 800 mg tablet 2019-0 4- 00:00: 00 Yes [id number] 800mg Take 1 tablet by mouth every 8 (eight) hours. [facility] ibuprofen 800 mg tablet 2019-0 4- 00:00: 00 Yes [id number] 800mg Take 1 tablet by mouth every 8 (eight) hours. [facility] ibuprofen 800 mg tablet 2019-0 4-03 00:00: 00 Yes [id number] 800mg Take 1 tablet by mouth every 8 (eight) hours. [facility] ibuprofen 800 mg tablet 2019-0 4- 00:00: 00 Yes [id number] 800mg Take 1 tablet by mouth every 8 (eight) hours. [facility] ibuprofen 800 mg tablet 2019-0 4-03 00:00: 00 Yes [id number] 800mg Take 1 tablet by mouth every 8 (eight) hours. [facility] ibuprofen 800 mg tablet 07-19 00:00: 00 Yes [id number] 800mg Take 1 tablet by mouth every 8 (eight) hours. [facility] ibuprofen 800 mg tablet 07-19 00:00: 00 01-01 00:00 :00 No [id number] 800mg Take 1 tablet by mouth every 8 (eight) hours. [facility] ibuprofen 800 mg tablet 07-19 00:00: 01-01 00:00 :00 No [id number] 800mg Take 1 tablet by mouth every 8 (eight) hours. [facility] ibuprofen 800 mg tablet 07-19 00:00: 00 01-01 00:00 :00 No [id number] 800mg Take 1 tablet by mouth every 8 (eight) hours. [facility] ibuprofen 800 mg tablet 07-19 00:00: 00 01-01 00:00 :00 No [id number] 800mg Take 1 tablet by mouth every 8 (eight) hours. [facility] traMADOL 50 mg tablet 09-18 00:00: 00 Yes [id number] 50mg Take 1 tablet by mouth every 6 (six) hours as needed for Pain (scale 4-6). [facility] ibuprofen 800 mg tablet 09-18 00:00: 00 Yes [id number] 800mg Take 1 tablet by mouth every 8 (eight) hours. [facility] traMADOL 50 mg tablet 09-18 00:00: 00 07-19 00:00 :00 No [id number] 50mg Take 1 tablet by mouth every 6 (six) hours as needed for Pain (scale 4-6). [facility] ibuprofen 800 mg tablet 09-18 00:00: 00 07-19 00:00 :00 No [id number] 800mg Take 1 tablet by mouth every 8 (eight) hours. [facility] traMADOL 50 mg tablet 09-18 00:00: 00 07-19 00:00 :00 No [id number] 50mg Take 1 tablet by mouth every 6 (six) hours as needed for Pain (scale 4-6). [facility] ibuprofen 800 mg tablet 09-18 00:00: 07-19 00:00 :00 No [id number] 800mg Take 1 tablet by mouth every 8 (eight) hours. [facility] Dextromeo rphan-Guaif enesin (DELSYM COUGH-CHEST CONGEST DM) 5-100 mg/5 mL Liqd 2-12 00:00: 00 Yes [id number] 10mL Take 10 mL by mouth 2 (two) times daily. [facility] Dextromeo rphan-Guaif enesin (DELSYM COUGH-CHEST CONGEST DM) 5-100 mg/5 mL Liqd 212 00:00: 00 07-19 00:00 :00 No [id number] 10mL Take 10 mL by mouth 2 (two) times daily. [facility] Dextrometho rphan-Guaif enesin (DELSYM COUGH-CHEST CONGEST DM) 5-100 mg/5 mL Liqd 212 00:00: 00 07-19 00:00 :00 No [id number] 10mL Take 10 mL by mouth 2 (two) times daily. [facility] No known medications No Un carol ity [facility] No known medications No Un carol ity [facility] No known medications No Un carol ity [facility] No known medications No Un carol ity [facility] Ibuprofen Ibuprofen No Ibuprofen [facility] Hydrocodone -Acetaminop hen Hydrocodone -Acetaminop hen No Hydrocodon e-Acetamin ophen [facility] Tramadol HCl Tramadol HCl No Tramadol HCl [facility] Tramadol HCl Tramadol HCl No Tramadol HCl Tramadol HCl Tramadol HCl No Tramadol HCl Tramadol HCl Tramadol HCl No Tramadol HCl Tramadol HCl Tramadol HCl No Tramadol HCl Tramadol HCl Tramadol HCl No Tramadol HCl Ibuprofen Ibuprofen No Ibuprofen Ibuprofen Ibuprofen No Ibuprofen Hydrocodone -Acetaminop hen Hydrocodone -Acetaminop hen No Hydrocodon e-Acetamin ophen Tramadol HCl Tramadol HCl No Tramadol HCl Ibuprofen Ibuprofen No Ibuprofen Hydrocodone -Acetaminop hen Hydrocodone -Acetaminop hen No Hydrocodon e-Acetamin ophen Tramadol HCl Tramadol HCl No Tramadol HCl Ibuprofen Ibuprofen No Ibuprofen Hydrocodone -Acetaminop hen Hydrocodone -Acetaminop hen No Hydrocodon e-Acetamin ophen Tramadol HCl Tramadol HCl No Tramadol HCl Tramadol HCl Tramadol HCl No Tramadol HCl Hydrocodone -Acetaminop hen Hydrocodone -Acetaminop hen No Hydrocodon e-Acetamin ophen Ibuprofen Ibuprofen No Ibuprofen Tramadol HCl Tramadol HCl No Tramadol HCl Immunizations Ordered Immunization Name Filled Immunization Name Date Status Comments Source Meningococcal B, V 2019-11-23 00:00:00 Completed [facility] Meningococcal B, [facility] 2019-11-23 00:00:00 Completed [facility] Meningococcal B, [facility] 2019-11-23 00:00:00 Completed [facility] Meningococcal B, V 2019-11-23 00:00:00 Completed [facility] Meningococcal B, V 2019-11-23 00:00:00 Completed [facility] Meningococcal B, V 2019-11-23 00:00:00 Completed [facility] Meningococcal B, V 2019-11-23 00:00:00 Completed [facility] Meningococcal B, V 2019-11-23 00:00:00 Completed [facility] Meningococcal B, V 2019-11-23 00:00:00 Completed [facility] Meningococcal B, V 2019-11-23 00:00:00 Completed [facility] Meningococcal B, V 2019-11-23 00:00:00 Completed [facility] Meningococcal B, V 2019-11-23 00:00:00 Completed [facility] Meningococcal B, V 2019-11-23 00:00:00 Completed [facility] Meningococcal B, V 2019-11-23 00:00:00 Completed [facility] Meningococcal B, V 2019-11-23 00:00:00 Completed [facility] Meningococcal B, V 2019-11-23 00:00:00 Completed [facility] Meningococcal B, V 2019-11-23 00:00:00 Completed [facility] Meningococcal B, OMV 2019-11-23 00:00:00 Completed [facility] Meningococcal B, OMV 2019-11-23 00:00:00 Completed [facility] Meningococcal B, OMV 2019-11-23 00:00:00 Completed [facility] Meningococcal B, OMV 2019-11-23 00:00:00 Completed [facility] Meningococcal B, OMV 2019-11-23 00:00:00 Completed [facility] Meningococcal B, OMV 2019-11-23 00:00:00 Completed [facility] Meningococcal B, OMV 2019-11-23 00:00:00 Completed [facility] Meningococcal B, OMV 2019-11-23 00:00:00 Completed [facility] Meningococcal B, OMV 2019-11-23 00:00:00 Completed [facility] Meningococcal B, OMV 2019-11-23 00:00:00 Completed [facility] Meningococcal B, OMV 2019-11-23 00:00:00 Completed [facility] Meningococcal B, OMV 2019-11-23 00:00:00 Completed [facility] Meningococcal B, OMV 2019-11-23 00:00:00 Completed [facility] Meningococcal B, OMV 2019-11-23 00:00:00 Completed [facility] Meningococcal B, OMV 2019-11-23 00:00:00 Completed [facility] Meningococcal B, OMV 2019-11-23 00:00:00 Completed [facility] Meningococcal B, OMV 2019-11-23 00:00:00 Completed [facility] Meningococcal B, OMV 2019-11-23 00:00:00 Completed [facility] Meningococcal B, OMV 2019-11-23 00:00:00 Completed [facility] Meningococcal B, OMV 2019-11-23 00:00:00 Completed [facility] Meningococcal B, OMV 2019-11-23 00:00:00 Completed [facility] Meningococcal B, OMV 2019-11-23 00:00:00 Completed [facility] Meningococcal B, OMV 2019-11-23 00:00:00 Completed [facility] Meningococcal B, OMV 2019-11-23 00:00:00 Completed [facility] Meningococcal B, OMV 2019-11-23 00:00:00 Completed [facility] Meningococcal Polysaccharide (groups A, C, Y and W-135) conjugate vaccine (MCV4P) 2017-05-25 00:00:00 Completed [facility] Influenza Virus Vaccine Quad IM 3+ YRS 2017-05-25 00:00:00 Completed [facility] Meningococcal B, OMV 2017-05-25 00:00:00 Completed [facility] Meningococcal Polysaccharide (groups A, C, Y and W-135) conjugate vaccine (MCV4P) 2017-05-25 00:00:00 Completed [facility] Influenza Virus Vaccine Quad IM 3+ YRS 2017-05-25 00:00:00 Completed [facility] Meningococcal B, OMV 2017-05-25 00:00:00 Completed [facility] Meningococcal Polysaccharide (groups A, C, Y and W-135) conjugate vaccine (MCV4P) 2017-05-25 00:00:00 Completed [facility] Influenza Virus Vaccine Quad IM 3+ YRS 2017-05-25 00:00:00 Completed [facility] Meningococcal B, OMV 2017-05-25 00:00:00 Completed [facility] Meningococcal Polysaccharide (groups A, C, Y and W-135) conjugate vaccine (MCV4P) 2017-05-25 00:00:00 Completed [facility] Meningococcal Polysaccharide (groups A, C, Y and W-135) conjugate vaccine (MCV4P) 2017-05-25 00:00:00 Completed [facility] Influenza Virus Vaccine Quad IM 3+ YRS 2017-05-25 00:00:00 Completed [facility] Meningococcal B, OMV 2017-05-25 00:00:00 Completed [facility] Influenza Virus Vaccine Quad IM 3+ YRS 2017-05-25 00:00:00 Completed [facility] Meningococcal B, OMV 2017-05-25 00:00:00 Completed [facility] Meningococcal Polysaccharide (groups A, C, Y and W-135) conjugate vaccine (MCV4P) 2017-05-25 00:00:00 Completed [facility] Influenza Virus Vaccine Quad IM 3+ YRS 2017-05-25 00:00:00 Completed [facility] Meningococcal B, OMV 2017-05-25 00:00:00 Completed [facility] Meningococcal Polysaccharide (groups A, C, Y and W-135) conjugate vaccine (MCV4P) 2017-05-25 00:00:00 Completed [facility] Influenza Virus Vaccine Quad IM 2017-05-25 00:00:00 Completed [facility] Meningococcal B, OMV 2017-05-25 00:00:00 Completed [facility] Meningococcal Polysaccharide (groups A, C, Y and W-135) conjugate vaccine (MCV4P) 2017-05-25 00:00:00 Completed [facility] Influenza Virus Vaccine Quad IM 2017-05-25 00:00:00 Completed [facility] Meningococcal B, OMV 2017-05-25 00:00:00 Completed [facility] Meningococcal Polysaccharide (groups A, C, Y and W-135) conjugate vaccine (MCV4P) 2017-05-25 00:00:00 Completed [facility] Influenza Virus Vaccine Quad IM 2017-05-25 00:00:00 Completed [facility] Meningococcal B, OMV 2017-05-25 00:00:00 Completed [facility] Meningococcal Polysaccharide (groups A, C, Y and W-135) conjugate vaccine (MCV4P) 2017-05-25 00:00:00 Completed [facility] Influenza Virus Vaccine Quad IM 2017-05-25 00:00:00 Completed [facility] Meningococcal B, OMV 2017-05-25 00:00:00 Completed [facility] Meningococcal Polysaccharide (groups A, C, Y and W-135) conjugate vaccine (MCV4P) 2017-05-25 00:00:00 Completed [facility] Influenza Virus Vaccine Quad IM 2017-05-25 00:00:00 Completed [facility] Meningococcal B, OMV 2017-05-25 00:00:00 Completed [facility] Meningococcal Polysaccharide (groups A, C, Y and W-135) conjugate vaccine (MCV4P) 2017-05-25 00:00:00 Completed [facility] Influenza Virus Vaccine Quad IM 32017-05-25 00:00:00 Completed [facility] Meningococcal B, OMV 2017-05-25 00:00:00 Completed [facility] Meningococcal Polysaccharide (groups A, C, Y and W-135) conjugate vaccine (MCV4P) 2017-05-25 00:00:00 Completed [facility] Influenza Virus Vaccine Quad IM 2017-05-25 00:00:00 Completed [facility] Meningococcal B, OMV 2017-05-25 00:00:00 Completed [facility] Meningococcal Polysaccharide (groups A, C, Y and W-135) conjugate vaccine (MCV4P) 2017-05-25 00:00:00 Completed [facility] Influenza Virus Vaccine Quad IM 2017-05-25 00:00:00 Completed [facility] Meningococcal B, OMV 2017-05-25 00:00:00 Completed [facility] Meningococcal Polysaccharide (groups A, C, Y and W-135) conjugate vaccine (MCV4P) 2017-05-25 00:00:00 Completed [facility] Influenza Virus Vaccine Quad IM 2017-05-25 00:00:00 Completed [facility] Meningococcal B, OMV 2017-05-25 00:00:00 Completed [facility] Meningococcal Polysaccharide (groups A, C, Y and W-135) conjugate vaccine (MCV4P) 2017-05-25 00:00:00 Completed [facility] Influenza Virus Vaccine Quad IM 2017-05-25 00:00:00 Completed [facility] Meningococcal B, OMV 2017-05-25 00:00:00 Completed [facility] Meningococcal Polysaccharide (groups A, C, Y and W-135) conjugate vaccine (MCV4P) 2017-05-25 00:00:00 Completed [facility] Influenza Virus Vaccine Quad IM 2017-05-25 00:00:00 Completed [facility] Meningococcal B, OMV 2017-05-25 00:00:00 Completed [facility] Meningococcal Polysaccharide (groups A, C, Y and W-135) conjugate vaccine (MCV4P) 2017-05-25 00:00:00 Completed [facility] Influenza Virus Vaccine Quad IM 32017-05-25 00:00:00 Completed [facility] Meningococcal B, OMV 2017-05-25 00:00:00 Completed [facility] Meningococcal Polysaccharide (groups A, C, Y and W-135) conjugate vaccine (MCV4P) 2017-05-25 00:00:00 Completed [facility] Influenza Virus Vaccine Quad IM 2017-05-25 00:00:00 Completed [facility] Meningococcal B, OMV 2017-05-25 00:00:00 Completed [facility] Meningococcal Polysaccharide (groups A, C, Y and W-135) conjugate vaccine (MCV4P) 2017-05-25 00:00:00 Completed [facility] Influenza Virus Vaccine Quad IM 2017-05-25 00:00:00 Completed [facility] Meningococcal B, OMV 2017-05-25 00:00:00 Completed [facility] Meningococcal Polysaccharide (groups A, C, Y and W-135) conjugate vaccine (MCV4P) 2017-05-25 00:00:00 Completed [facility] Influenza Virus Vaccine Quad IM 2017-05-25 00:00:00 Completed [facility] Meningococcal B, OMV 2017-05-25 00:00:00 Completed [facility] Meningococcal Polysaccharide (groups A, C, Y and W-135) conjugate vaccine (MCV4P) 2017-05-25 00:00:00 Completed [facility] Influenza Virus Vaccine Quad IM 2017-05-25 00:00:00 Completed [facility] Meningococcal B, OMV 2017-05-25 00:00:00 Completed [facility] Meningococcal Polysaccharide (groups A, C, Y and W-135) conjugate vaccine (MCV4P) 2017-05-25 00:00:00 Completed [facility] Influenza Virus Vaccine Quad IM 2017-05-25 00:00:00 Completed [facility] Meningococcal B, OMV 2017-05-25 00:00:00 Completed [facility] Meningococcal Polysaccharide (groups A, C, Y and W-135) conjugate vaccine (MCV4P) 2017-05-25 00:00:00 Completed [facility] Influenza Virus Vaccine Quad IM 32017-05-25 00:00:00 Completed [facility] Meningococcal B, OMV 2017-05-25 00:00:00 Completed [facility] Meningococcal Polysaccharide (groups A, C, Y and W-135) conjugate vaccine (MCV4P) 2017-05-25 00:00:00 Completed [facility] Influenza Virus Vaccine Quad IM 2017-05-25 00:00:00 Completed [facility] Meningococcal B, OMV 2017-05-25 00:00:00 Completed [facility] Meningococcal Polysaccharide (groups A, C, Y and W-135) conjugate vaccine (MCV4P) 2017-05-25 00:00:00 Completed [facility] Influenza Virus Vaccine Quad IM 2017-05-25 00:00:00 Completed [facility] Meningococcal B, OMV 2017-05-25 00:00:00 Completed [facility] Meningococcal Polysaccharide (groups A, C, Y and W-135) conjugate vaccine (MCV4P) 2017-05-25 00:00:00 Completed [facility] Influenza Virus Vaccine Quad IM 2017-05-25 00:00:00 Completed [facility] Meningococcal B, OMV 2017-05-25 00:00:00 Completed [facility] Meningococcal Polysaccharide (groups A, C, Y and W-135) conjugate vaccine (MCV4P) 2017-05-25 00:00:00 Completed [facility] Influenza Virus Vaccine Quad IM 2017-05-25 00:00:00 Completed [facility] Meningococcal B, OMV 2017-05-25 00:00:00 Completed [facility] Meningococcal Polysaccharide (groups A, C, Y and W-135) conjugate vaccine (MCV4P) 2017-05-25 00:00:00 Completed [facility] Influenza Virus Vaccine Quad IM 2017-05-25 00:00:00 Completed [facility] Meningococcal B, OMV 2017-05-25 00:00:00 Completed [facility] Meningococcal Polysaccharide (groups A, C, Y and W-135) conjugate vaccine (MCV4P) 2017-05-25 00:00:00 Completed [facility] Influenza Virus Vaccine Quad IM 32017-05-25 00:00:00 Completed [facility] Meningococcal B, OMV 2017-05-25 00:00:00 Completed [facility] Meningococcal Polysaccharide (groups A, C, Y and W-135) conjugate vaccine (MCV4P) 2017-05-25 00:00:00 Completed [facility] Influenza Virus Vaccine Quad IM 2017-05-25 00:00:00 Completed [facility] Meningococcal B, OMV 2017-05-25 00:00:00 Completed [facility] Meningococcal Polysaccharide (groups A, C, Y and W-135) conjugate vaccine (MCV4P) 2017-05-25 00:00:00 Completed [facility] Influenza Virus Vaccine Quad IM 2017-05-25 00:00:00 Completed [facility] Meningococcal B, OMV 2017-05-25 00:00:00 Completed [facility] Meningococcal Polysaccharide (groups A, C, Y and W-135) conjugate vaccine (MCV4P) 2017-05-25 00:00:00 Completed [facility] Influenza Virus Vaccine Quad IM 2017-05-25 00:00:00 Completed [facility] Meningococcal B, OMV 2017-05-25 00:00:00 Completed [facility] Meningococcal Polysaccharide (groups A, C, Y and W-135) conjugate vaccine (MCV4P) 2017-05-25 00:00:00 Completed [facility] Influenza Virus Vaccine Quad IM 2017-05-25 00:00:00 Completed [facility] Meningococcal B, OMV 2017-05-25 00:00:00 Completed [facility] Meningococcal Polysaccharide (groups A, C, Y and W-135) conjugate vaccine (MCV4P) 2017-05-25 00:00:00 Completed [facility] Influenza Virus Vaccine Quad IM 2017-05-25 00:00:00 Completed [facility] Meningococcal B, OMV 2017-05-25 00:00:00 Completed [facility] Meningococcal Polysaccharide (groups A, C, Y and W-135) conjugate vaccine (MCV4P) 2017-05-25 00:00:00 Completed [facility] Influenza Virus Vaccine Quad IM 2017-05-25 00:00:00 Completed [facility] Meningococcal B, OMV 2017-05-25 00:00:00 Completed [facility] Meningococcal Polysaccharide (groups A, C, Y and W-135) conjugate vaccine (MCV4P) 2017-05-25 00:00:00 Completed [facility] Influenza Virus Vaccine Quad IM 3 YRS 2017-05-25 00:00:00 Completed [facility] Meningococcal B, OMV 2017-05-25 00:00:00 Completed [facility] Meningococcal Polysaccharide (groups A, C, Y and W-135) conjugate vaccine (MCV4P) 2017-05-25 00:00:00 Completed [facility] Influenza Virus Vaccine Quad IM 2017-05-25 00:00:00 Completed [facility] Meningococcal B, OMV 2017-05-25 00:00:00 Completed [facility] Meningococcal Polysaccharide (groups A, C, Y and W-135) conjugate vaccine (MCV4P) 2017-05-25 00:00:00 Completed [facility] Influenza Virus Vaccine Quad IM 2017-05-25 00:00:00 Completed [facility] Meningococcal B, OMV 2017-05-25 00:00:00 Completed [facility] Meningococcal Polysaccharide (groups A, C, Y and W-135) conjugate vaccine (MCV4P) 2017-05-25 00:00:00 Completed [facility] Influenza Virus Vaccine Quad IM 2017-05-25 00:00:00 Completed [facility] Meningococcal B, OMV 2017-05-25 00:00:00 Completed [facility] Meningococcal Polysaccharide (groups A, C, Y and W-135) conjugate vaccine (MCV4P) 2017-05-25 00:00:00 Completed [facility] Influenza Virus Vaccine Quad IM 3 YRS 2017-05-25 00:00:00 Completed [facility] Meningococcal B, OMV 2017-05-25 00:00:00 Completed [facility] Meningococcal Polysaccharide (groups A, C, Y and W-135) conjugate vaccine (MCV4P) 2017-05-25 00:00:00 Completed [facility] Influenza Virus Vaccine Quad IM 32017-05-25 00:00:00 Completed [facility] Meningococcal B, OMV 2017-05-25 00:00:00 Completed [facility] Meningococcal Polysaccharide (groups A, C, Y and W-135) conjugate vaccine (MCV4P) 2017-05-25 00:00:00 Completed [facility] Influenza Virus Vaccine Quad IM 3+ YRS 2017-05-25 00:00:00 Completed [facility] Meningococcal B, OMV 2017-05-25 00:00:00 Completed [facility] Meningococcal Polysaccharide (groups A, C, Y and W-135) conjugate vaccine (MCV4P) 2017-05-25 00:00:00 Completed [facility] Influenza Virus Vaccine Quad IM 3 YRS 2017-05-25 00:00:00 Completed [facility] Meningococcal B, OMV 2017-05-25 00:00:00 Completed [facility] Meningococcal Polysaccharide (groups A, C, Y and W-135) conjugate vaccine (MCV4P) 2017-05-25 00:00:00 Completed [facility] Influenza Virus Vaccine Quad IM 3 YRS 2017-05-25 00:00:00 Completed [facility] Meningococcal B, OMV 2017-05-25 00:00:00 Completed [facility] Meningococcal Polysaccharide (groups A, C, Y and W-135) conjugate vaccine (MCV4P) 2017-05-25 00:00:00 Completed [facility] Influenza Virus Vaccine Quad IM 3 YRS 2017-05-25 00:00:00 Completed [facility] Meningococcal B, OMV 2017-05-25 00:00:00 Completed [facility] Meningococcal Polysaccharide (groups A, C, Y and W-135) conjugate vaccine (MCV4P) 2017-05-25 00:00:00 Completed [facility] Influenza Virus Vaccine Quad IM 3 YRS 2017-05-25 00:00:00 Completed [facility] Meningococcal B, OMV 2017-05-25 00:00:00 Completed [facility] Meningococcal Polysaccharide (groups A, C, Y and W-135) conjugate vaccine (MCV4P) 2017-05-25 00:00:00 Completed [facility] Influenza Virus Vaccine Quad IM 3+ YRS 2017-05-25 00:00:00 Completed [facility] Meningococcal B, OMV 2017-05-25 00:00:00 Completed [facility] Meningococcal Polysaccharide (groups A, C, Y and W-135) conjugate vaccine (MCV4P) 2017-05-25 00:00:00 Completed [facility] Influenza Virus Vaccine Quad IM 3+ YRS 2017-05-25 00:00:00 Completed [facility] Meningococcal B, OMV 2017-05-25 00:00:00 Completed [facility] Meningococcal Polysaccharide (groups A, C, Y and W-135) conjugate vaccine (MCV4P) 2017-05-25 00:00:00 Completed [facility] Influenza Virus Vaccine Quad IM 3+ YRS 2017-05-25 00:00:00 Completed [facility] Meningococcal B, OMV 2017-05-25 00:00:00 Completed [facility] Meningococcal Polysaccharide (groups A, C, Y and W-135) conjugate vaccine (MCV4P) 2016-09-10 00:00:00 Completed [facility] TDAP 2016-09-10 00:00:00 Completed [facility] HPV9 2016-09-10 00:00:00 Completed [facility] Meningococcal Polysaccharide (groups A, C, Y and W-135) conjugate vaccine (MCV4P) 2016-09-10 00:00:00 Completed [facility] TDAP 2016-09-10 00:00:00 Completed [facility] HPV9 2016-09-10 00:00:00 Completed [facility] Meningococcal Polysaccharide (groups A, C, Y and W-135) conjugate vaccine (MCV4P) 2016-09-10 00:00:00 Completed [facility] TDAP 2016-09-10 00:00:00 Completed [facility] HPV9 2016-09-10 00:00:00 Completed [facility] Meningococcal Polysaccharide (groups A, C, Y and W-135) conjugate vaccine (MCV4P) 2016-09-10 00:00:00 Completed [facility] TDAP 2016-09-10 00:00:00 Completed [facility] HPV9 2016-09-10 00:00:00 Completed [facility] Meningococcal Polysaccharide (groups A, C, Y and W-135) conjugate vaccine (MCV4P) 2016-09-10 00:00:00 Completed [facility] TDAP 2016-09-10 00:00:00 Completed [facility] HPV9 2016-09-10 00:00:00 Completed [facility] Meningococcal Polysaccharide (groups A, C, Y and W-135) conjugate vaccine (MCV4P) 2016-09-10 00:00:00 Completed [facility] TDAP 2016-09-10 00:00:00 Completed [facility] HPV9 2016-09-10 00:00:00 Completed [facility] Meningococcal Polysaccharide (groups A, C, Y and W-135) conjugate vaccine (MCV4P) 2016-09-10 00:00:00 Completed [facility] TDAP 2016-09-10 00:00:00 Completed [facility] HPV9 2016-09-10 00:00:00 Completed [facility] Meningococcal Polysaccharide (groups A, C, Y and W-135) conjugate vaccine (MCV4P) 2016-09-10 00:00:00 Completed [facility] TDAP 2016-09-10 00:00:00 Completed [facility] HPV9 2016-09-10 00:00:00 Completed [facility] Meningococcal Polysaccharide (groups A, C, Y and W-135) conjugate vaccine (MCV4P) 2016-09-10 00:00:00 Completed [facility] TDAP 2016-09-10 00:00:00 Completed [facility] HPV9 2016-09-10 00:00:00 Completed [facility] Meningococcal Polysaccharide (groups A, C, Y and W-135) conjugate vaccine (MCV4P) 2016-09-10 00:00:00 Completed [facility] TDAP 2016-09-10 00:00:00 Completed [facility] HPV9 2016-09-10 00:00:00 Completed [facility] Meningococcal Polysaccharide (groups A, C, Y and W-135) conjugate vaccine (MCV4P) 2016-09-10 00:00:00 Completed [facility] TDAP 2016-09-10 00:00:00 Completed [facility] HPV9 2016-09-10 00:00:00 Completed [facility] Meningococcal Polysaccharide (groups A, C, Y and W-135) conjugate vaccine (MCV4P) 2016-09-10 00:00:00 Completed [facility] TDAP 2016-09-10 00:00:00 Completed [facility] HPV9 2016-09-10 00:00:00 Completed [facility] Meningococcal Polysaccharide (groups A, C, Y and W-135) conjugate vaccine (MCV4P) 2016-09-10 00:00:00 Completed [facility] TDAP 2016-09-10 00:00:00 Completed [facility] HPV9 2016-09-10 00:00:00 Completed [facility] Meningococcal Polysaccharide (groups A, C, Y and W-135) conjugate vaccine (MCV4P) 2016-09-10 00:00:00 Completed [facility] TDAP 2016-09-10 00:00:00 Completed [facility] HPV9 2016-09-10 00:00:00 Completed [facility] Meningococcal Polysaccharide (groups A, C, Y and W-135) conjugate vaccine (MCV4P) 2016-09-10 00:00:00 Completed [facility] TDAP 2016-09-10 00:00:00 Completed [facility] HPV9 2016-09-10 00:00:00 Completed [facility] Meningococcal Polysaccharide (groups A, C, Y and W-135) conjugate vaccine (MCV4P) 2016-09-10 00:00:00 Completed [facility] TDAP 2016-09-10 00:00:00 Completed [facility] HPV9 2016-09-10 00:00:00 Completed [facility] Meningococcal Polysaccharide (groups A, C, Y and W-135) conjugate vaccine (MCV4P) 2016-09-10 00:00:00 Completed [facility] TDAP 2016-09-10 00:00:00 Completed [facility] HPV9 2016-09-10 00:00:00 Completed [facility] Meningococcal Polysaccharide (groups A, C, Y and W-135) conjugate vaccine (MCV4P) 2016-09-10 00:00:00 Completed [facility] TDAP 2016-09-10 00:00:00 Completed [facility] HPV9 2016-09-10 00:00:00 Completed [facility] Meningococcal Polysaccharide (groups A, C, Y and W-135) conjugate vaccine (MCV4P) 2016-09-10 00:00:00 Completed [facility] TDAP 2016-09-10 00:00:00 Completed [facility] HPV9 2016-09-10 00:00:00 Completed [facility] Meningococcal Polysaccharide (groups A, C, Y and W-135) conjugate vaccine (MCV4P) 2016-09-10 00:00:00 Completed [facility] Tdap 2016-09-10 00:00:00 Completed [facility] HPV9 2016-09-10 00:00:00 Completed [facility] Meningococcal Polysaccharide (groups A, C, Y and W-135) conjugate vaccine (MCV4P) 2016-09-10 00:00:00 Completed [facility] TDAP 2016-09-10 00:00:00 Completed [facility] HPV9 2016-09-10 00:00:00 Completed [facility] Meningococcal Polysaccharide (groups A, C, Y and W-135) conjugate vaccine (MCV4P) 2016-09-10 00:00:00 Completed [facility] TDAP 2016-09-10 00:00:00 Completed [facility] HPV9 2016-09-10 00:00:00 Completed [facility] Meningococcal Polysaccharide (groups A, C, Y and W-135) conjugate vaccine (MCV4P) 2016-09-10 00:00:00 Completed [facility] TDAP 2016-09-10 00:00:00 Completed [facility] HPV9 2016-09-10 00:00:00 Completed [facility] Meningococcal Polysaccharide (groups A, C, Y and W-135) conjugate vaccine (MCV4P) 2016-09-10 00:00:00 Completed [facility] TDAP 2016-09-10 00:00:00 Completed [facility] HPV9 2016-09-10 00:00:00 Completed [facility] Meningococcal Polysaccharide (groups A, C, Y and W-135) conjugate vaccine (MCV4P) 2016-09-10 00:00:00 Completed [facility] TDAP 2016-09-10 00:00:00 Completed [facility] HPV9 2016-09-10 00:00:00 Completed [facility] Meningococcal Polysaccharide (groups A, C, Y and W-135) conjugate vaccine (MCV4P) 2016-09-10 00:00:00 Completed [facility] TDAP 2016-09-10 00:00:00 Completed [facility] HPV9 2016-09-10 00:00:00 Completed [facility] Meningococcal Polysaccharide (groups A, C, Y and W-135) conjugate vaccine (MCV4P) 2016-09-10 00:00:00 Completed [facility] TDAP 2016-09-10 00:00:00 Completed [facility] HPV9 2016-09-10 00:00:00 Completed [facility] Meningococcal Polysaccharide (groups A, C, Y and W-135) conjugate vaccine (MCV4P) 2016-09-10 00:00:00 Completed [facility] TDAP 2016-09-10 00:00:00 Completed [facility] HPV9 2016-09-10 00:00:00 Completed [facility] Meningococcal Polysaccharide (groups A, C, Y and W-135) conjugate vaccine (MCV4P) 2016-09-10 00:00:00 Completed [facility] TDAP 2016-09-10 00:00:00 Completed [facility] HPV9 2016-09-10 00:00:00 Completed [facility] Meningococcal Polysaccharide (groups A, C, Y and W-135) conjugate vaccine (MCV4P) 2016-09-10 00:00:00 Completed [facility] TDAP 2016-09-10 00:00:00 Completed [facility] HPV9 2016-09-10 00:00:00 Completed [facility] Meningococcal Polysaccharide (groups A, C, Y and W-135) conjugate vaccine (MCV4P) 2016-09-10 00:00:00 Completed [facility] HPV9 2016-09-10 00:00:00 Completed [facility] Meningococcal Polysaccharide (groups A, C, Y and W-135) conjugate vaccine (MCV4P) 2016-09-10 00:00:00 Completed [facility] TDAP 2016-09-10 00:00:00 Completed [facility] Tdap 2016-09-10 00:00:00 Completed [facility] HPV9 2016-09-10 00:00:00 Completed [facility] Meningococcal Polysaccharide (groups A, C, Y and W-135) conjugate vaccine (MCV4P) 2016-09-10 00:00:00 Completed [facility] TDAP 2016-09-10 00:00:00 Completed [facility] HPV9 2016-09-10 00:00:00 Completed [facility] Meningococcal Polysaccharide (groups A, C, Y and W-135) conjugate vaccine (MCV4P) 2016-09-10 00:00:00 Completed [facility] TDAP 2016-09-10 00:00:00 Completed [facility] HPV9 2016-09-10 00:00:00 Completed [facility] Meningococcal Polysaccharide (groups A, C, Y and W-135) conjugate vaccine (MCV4P) 2016-09-10 00:00:00 Completed [facility] TDAP 2016-09-10 00:00:00 Completed [facility] HPV9 2016-09-10 00:00:00 Completed [facility] Meningococcal Polysaccharide (groups A, C, Y and W-135) conjugate vaccine (MCV4P) 2016-09-10 00:00:00 Completed [facility] TDAP 2016-09-10 00:00:00 Completed [facility] HPV9 2016-09-10 00:00:00 Completed [facility] Meningococcal Polysaccharide (groups A, C, Y and W-135) conjugate vaccine (MCV4P) 2016-09-10 00:00:00 Completed [facility] TDAP 2016-09-10 00:00:00 Completed [facility] HPV9 2016-09-10 00:00:00 Completed [facility] Meningococcal Polysaccharide (groups A, C, Y and W-135) conjugate vaccine (MCV4P) 2016-09-10 00:00:00 Completed [facility] TDAP 2016-09-10 00:00:00 Completed [facility] HPV9 2016-09-10 00:00:00 Completed [facility] Meningococcal Polysaccharide (groups A, C, Y and W-135) conjugate vaccine (MCV4P) 2016-09-10 00:00:00 Completed [facility] TDAP 2016-09-10 00:00:00 Completed [facility] HPV9 2016-09-10 00:00:00 Completed [facility] Meningococcal Polysaccharide (groups A, C, Y and W-135) conjugate vaccine (MCV4P) 2016-09-10 00:00:00 Completed [facility] TDAP 2016-09-10 00:00:00 Completed [facility] HPV9 2016-09-10 00:00:00 Completed [facility] Meningococcal Polysaccharide (groups A, C, Y and W-135) conjugate vaccine (MCV4P) 2016-09-10 00:00:00 Completed [facility] HPV9 2016-09-10 00:00:00 Completed [facility] Tdap 2016-09-10 00:00:00 Completed [facility] Meningococcal Polysaccharide (groups A, C, Y and W-135) conjugate vaccine (MCV4P) 2016-09-10 00:00:00 Completed [facility] TDAP 2016-09-10 00:00:00 Completed [facility] HPV9 2016-09-10 00:00:00 Completed [facility] Meningococcal Polysaccharide (groups A, C, Y and W-135) conjugate vaccine (MCV4P) 2016-09-10 00:00:00 Completed [facility] TDAP 2016-09-10 00:00:00 Completed [facility] HPV9 2016-09-10 00:00:00 Completed [facility] Meningococcal Polysaccharide (groups A, C, Y and W-135) conjugate vaccine (MCV4P) 2016-09-10 00:00:00 Completed [facility] TDAP 2016-09-10 00:00:00 Completed [facility] HPV9 2016-09-10 00:00:00 Completed [facility] Meningococcal Polysaccharide (groups A, C, Y and W-135) conjugate vaccine (MCV4P) 2016-09-10 00:00:00 Completed [facility] TDAP 2016-09-10 00:00:00 Completed [facility] HPV9 2016-09-10 00:00:00 Completed [facility] Meningococcal Polysaccharide (groups A, C, Y and W-135) conjugate vaccine (MCV4P) 2016-09-10 00:00:00 Completed [facility] TDAP 2016-09-10 00:00:00 Completed [facility] HPV9 2016-09-10 00:00:00 Completed [facility] Meningococcal Polysaccharide (groups A, C, Y and W-135) conjugate vaccine (MCV4P) 2016-09-10 00:00:00 Completed [facility] Tdap 2016-09-10 00:00:00 Completed [facility] HPV9 2016-09-10 00:00:00 Completed [facility] Meningococcal Polysaccharide (groups A, C, Y and W-135) conjugate vaccine (MCV4P) 2016-09-10 00:00:00 Completed [facility] Tdap 2016-09-10 00:00:00 Completed [facility] HPV9 2016-09-10 00:00:00 Completed [facility] Meningococcal Polysaccharide (groups A, C, Y and W-135) conjugate vaccine (MCV4P) 2016-09-10 00:00:00 Completed [facility] Tdap 2016-09-10 00:00:00 Completed [facility] HPV9 2016-09-10 00:00:00 Completed [facility] Meningococcal Polysaccharide (groups A, C, Y and W-135) conjugate vaccine (MCV4P) 2016-09-10 00:00:00 Completed [facility] TDAP 2016-09-10 00:00:00 Completed [facility] HPV9 2016-09-10 00:00:00 Completed [facility] HPV 2010-03-03 00:00:00 Completed [facility] Influenza Virus Vaccine 2010-03-03 00:00:00 Completed [facility] HPV 2010-03-03 00:00:00 Completed [facility] Influenza Virus Vaccine 2010-03-03 00:00:00 Completed [facility] HPV 2010-03-03 00:00:00 Completed [facility] Influenza Virus Vaccine 2010-03-03 00:00:00 Completed [facility] HPV 2010-03-03 00:00:00 Completed [facility] Influenza Virus Vaccine 2010-03-03 00:00:00 Completed [facility] HPV 2010-03-03 00:00:00 Completed [facility] Influenza Virus Vaccine 2010-03-03 00:00:00 Completed [facility] HPV 2010-03-03 00:00:00 Completed [facility] Influenza Virus Vaccine 2010-03-03 00:00:00 Completed [facility] HPV 2010-03-03 00:00:00 Completed [facility] Influenza Virus Vaccine 2010-03-03 00:00:00 Completed [facility] HPV 2010-03-03 00:00:00 Completed [facility] Influenza Virus Vaccine 2010-03-03 00:00:00 Completed [facility] HPV 2010-03-03 00:00:00 Completed [facility] Influenza Virus Vaccine 2010-03-03 00:00:00 Completed [facility] HPV 2010-03-03 00:00:00 Completed [facility] HPV 2010-03-03 00:00:00 Completed [facility] Influenza Virus Vaccine 2010-03-03 00:00:00 Completed [facility] Influenza Virus Vaccine 2010-03-03 00:00:00 Completed [facility] HPV 2010-03-03 00:00:00 Completed [facility] Influenza Virus Vaccine 2010-03-03 00:00:00 Completed [facility] HPV 2010-03-03 00:00:00 Completed [facility] Influenza Virus Vaccine 2010-03-03 00:00:00 Completed [facility] HPV 2010-03-03 00:00:00 Completed [facility] Influenza Virus Vaccine 2010-03-03 00:00:00 Completed [facility] HPV 2010-03-03 00:00:00 Completed [facility] Influenza Virus Vaccine 2010-03-03 00:00:00 Completed [facility] HPV 2010-03-03 00:00:00 Completed [facility] Influenza Virus Vaccine 2010-03-03 00:00:00 Completed [facility] HPV 2010-03-03 00:00:00 Completed [facility] Influenza Virus Vaccine 2010-03-03 00:00:00 Completed [facility] HPV 2010-03-03 00:00:00 Completed [facility] Influenza Virus Vaccine 2010-03-03 00:00:00 Completed [facility] HPV 2010-03-03 00:00:00 Completed [facility] Influenza Virus Vaccine 2010-03-03 00:00:00 Completed [facility] HPV 2010-03-03 00:00:00 Completed [facility] HPV 2010-03-03 00:00:00 Completed [facility] Influenza Virus Vaccine 2010-03-03 00:00:00 Completed [facility] Influenza Virus Vaccine 2010-03-03 00:00:00 Completed [facility] HPV 2010-03-03 00:00:00 Completed [facility] Influenza Virus Vaccine 2010-03-03 00:00:00 Completed [facility] HPV 2010-03-03 00:00:00 Completed [facility] Influenza Virus Vaccine 2010-03-03 00:00:00 Completed [facility] HPV 2010-03-03 00:00:00 Completed [facility] Influenza Virus Vaccine 2010-03-03 00:00:00 Completed [facility] HPV 2010-03-03 00:00:00 Completed [facility] Influenza Virus Vaccine 2010-03-03 00:00:00 Completed [facility] HPV 2010-03-03 00:00:00 Completed [facility] Influenza Virus Vaccine 2010-03-03 00:00:00 Completed [facility] HPV 2010-03-03 00:00:00 Completed [facility] Influenza Virus Vaccine 2010-03-03 00:00:00 Completed [facility] HPV 2010-03-03 00:00:00 Completed [facility] Influenza Virus Vaccine 2010-03-03 00:00:00 Completed [facility] HPV 2010-03-03 00:00:00 Completed [facility] Influenza Virus Vaccine 2010-03-03 00:00:00 Completed [facility] HPV 2010-03-03 00:00:00 Completed [facility] Influenza Virus Vaccine 2010-03-03 00:00:00 Completed [facility] HPV 2010-03-03 00:00:00 Completed [facility] Influenza Virus Vaccine 2010-03-03 00:00:00 Completed [facility] HPV 2010-03-03 00:00:00 Completed [facility] Influenza Virus Vaccine 2010-03-03 00:00:00 Completed [facility] HPV 2010-03-03 00:00:00 Completed [facility] Influenza Virus Vaccine 2010-03-03 00:00:00 Completed [facility] HPV 2010-03-03 00:00:00 Completed [facility] Influenza Virus Vaccine 2010-03-03 00:00:00 Completed [facility] HPV 2010-03-03 00:00:00 Completed [facility] Influenza Virus Vaccine 2010-03-03 00:00:00 Completed [facility] HPV 2010-03-03 00:00:00 Completed [facility] Influenza Virus Vaccine 2010-03-03 00:00:00 Completed [facility] HPV 2010-03-03 00:00:00 Completed [facility] Influenza Virus Vaccine 2010-03-03 00:00:00 Completed [facility] HPV 2010-03-03 00:00:00 Completed [facility] Influenza Virus Vaccine 2010-03-03 00:00:00 Completed [facility] HPV 2010-03-03 00:00:00 Completed [facility] Influenza Virus Vaccine 2010-03-03 00:00:00 Completed [facility] HPV 2010-03-03 00:00:00 Completed [facility] Influenza Virus Vaccine 2010-03-03 00:00:00 Completed [facility] HPV 2010-03-03 00:00:00 Completed [facility] Influenza Virus Vaccine 2010-03-03 00:00:00 Completed [facility] HPV 2010-03-03 00:00:00 Completed [facility] Influenza Virus Vaccine 2010-03-03 00:00:00 Completed [facility] HPV 2010-03-03 00:00:00 Completed [facility] Influenza Virus Vaccine 2010-03-03 00:00:00 Completed [facility] HPV 2010-03-03 00:00:00 Completed [facility] Influenza Virus Vaccine 2010-03-03 00:00:00 Completed [facility] HPV 2010-03-03 00:00:00 Completed [facility] Influenza Virus Vaccine 2010-03-03 00:00:00 Completed [facility] HPV 2010-03-03 00:00:00 Completed [facility] Influenza Virus Vaccine 2010-03-03 00:00:00 Completed [facility] HPV 2010-03-03 00:00:00 Completed [facility] Influenza Virus Vaccine 2010-03-03 00:00:00 Completed [facility] HPV 2010-03-03 00:00:00 Completed [facility] Influenza Virus Vaccine 2010-03-03 00:00:00 Completed [facility] HPV 2010-03-03 00:00:00 Completed [facility] Influenza Virus Vaccine 2010-03-03 00:00:00 Completed [facility] HPV 2010-03-03 00:00:00 Completed [facility] Influenza Virus Vaccine 2010-03-03 00:00:00 Completed [facility] Varicella (varivax)(chicken pox) 2008-11-15 00:00:00 Completed [facility] Varicella (varivax)(chicken pox) 2008-11-15 00:00:00 Completed [facility] Varicella (varivax)(chicken pox) 2008-11-15 00:00:00 Completed [facility] Varicella (varivax)(chicken pox) 2008-11-15 00:00:00 Completed [facility] Varicella (varivax)(chicken pox) 2008-11-15 00:00:00 Completed [facility] Varicella (varivax)(chicken pox) 2008-11-15 00:00:00 Completed [facility] Varicella (varivax)(chicken pox) 2008-11-15 00:00:00 Completed [facility] Varicella (varivax)(chicken pox) 2008-11-15 00:00:00 Completed [facility] Varicella (varivax)(chicken pox) 2008-11-15 00:00:00 Completed [facility] Varicella (varivax)(chicken pox) 2008-11-15 00:00:00 Completed [facility] Varicella (varivax)(chicken pox) 2008-11-15 00:00:00 Completed [facility] Varicella (varivax)(chicken pox) 2008-11-15 00:00:00 Completed [facility] Varicella (varivax)(chicken pox) 2008-11-15 00:00:00 Completed [facility] Varicella (varivax)(chicken pox) 2008-11-15 00:00:00 Completed [facility] Varicella (varivax)(chicken pox) 2008-11-15 00:00:00 Completed [facility] Varicella (varivax)(chicken pox) 2008-11-15 00:00:00 Completed [facility] Varicella (varivax)(chicken pox) 2008-11-15 00:00:00 Completed [facility] Varicella (varivax)(chicken pox) 2008-11-15 00:00:00 Completed [facility] Varicella (varivax)(chicken pox) 2008-11-15 00:00:00 Completed [facility] Varicella (varivax)(chicken pox) 2008-11-15 00:00:00 Completed [facility] Varicella (varivax)(chicken pox) 2008-11-15 00:00:00 Completed [facility] Varicella (varivax)(chicken pox) 2008-11-15 00:00:00 Completed [facility] Varicella (varivax)(chicken pox) 2008-11-15 00:00:00 Completed [facility] Varicella (varivax)(chicken pox) 2008-11-15 00:00:00 Completed [facility] Varicella (varivax)(chicken pox) 2008-11-15 00:00:00 Completed [facility] Varicella (varivax)(chicken pox) 2008-11-15 00:00:00 Completed [facility] Varicella (varivax)(chicken pox) 2008-11-15 00:00:00 Completed [facility] Varicella (varivax)(chicken pox) 2008-11-15 00:00:00 Completed [facility] Varicella (varivax)(chicken pox) 2008-11-15 00:00:00 Completed [facility] Varicella (varivax)(chicken pox) 2008-11-15 00:00:00 Completed [facility] Varicella (varivax)(chicken pox) 2008-11-15 00:00:00 Completed [facility] Varicella (varivax)(chicken pox) 2008-11-15 00:00:00 Completed [facility] Varicella (varivax)(chicken pox) 2008-11-15 00:00:00 Completed [facility] Varicella (varivax)(chicken pox) 2008-11-15 00:00:00 Completed [facility] Varicella (varivax)(chicken pox) 2008-11-15 00:00:00 Completed [facility] Varicella (varivax)(chicken pox) 2008-11-15 00:00:00 Completed [facility] Varicella (varivax)(chicken pox) 2008-11-15 00:00:00 Completed [facility] Varicella (varivax)(chicken pox) 2008-11-15 00:00:00 Completed [facility] Varicella (varivax)(chicken pox) 2008-11-15 00:00:00 Completed [facility] Varicella (varivax)(chicken pox) 2008-11-15 00:00:00 Completed [facility] Varicella (varivax)(chicken pox) 2008-11-15 00:00:00 Completed [facility] Varicella (varivax)(chicken pox) 2008-11-15 00:00:00 Completed [facility] Varicella (varivax)(chicken pox) 2008-11-15 00:00:00 Completed [facility] Varicella (varivax)(chicken pox) 2008-11-15 00:00:00 Completed [facility] Varicella (varivax)(chicken pox) 2008-11-15 00:00:00 Completed [facility] Varicella (varivax)(chicken pox) 2008-11-15 00:00:00 Completed [facility] Varicella (varivax)(chicken pox) 2008-11-15 00:00:00 Completed [facility] Varicella (varivax)(chicken pox) 2008-11-15 00:00:00 Completed [facility] Varicella (varivax)(chicken pox) 2008-11-15 00:00:00 Completed [facility] Varicella (varivax)(chicken pox) 2008-11-15 00:00:00 Completed [facility] Influenza Virus Vaccine 2007-06-02 00:00:00 Completed [facility] Influenza Virus Vaccine 2007-06-02 00:00:00 Completed [facility] Influenza Virus Vaccine 2007-06-02 00:00:00 Completed [facility] Influenza Virus Vaccine 2007-06-02 00:00:00 Completed [facility] Influenza Virus Vaccine 2007-06-02 00:00:00 Completed [facility] Influenza Virus Vaccine 2007-06-02 00:00:00 Completed [facility] Influenza Virus Vaccine 2007-06-02 00:00:00 Completed [facility] Influenza Virus Vaccine 2007-06-02 00:00:00 Completed [facility] Influenza Virus Vaccine 2007-06-02 00:00:00 Completed [facility] Influenza Virus Vaccine 2007-06-02 00:00:00 Completed [facility] Influenza Virus Vaccine 2007-06-02 00:00:00 Completed [facility] Influenza Virus Vaccine 2007-06-02 00:00:00 Completed [facility] Influenza Virus Vaccine 2007-06-02 00:00:00 Completed [facility] Influenza Virus Vaccine 2007-06-02 00:00:00 Completed [facility] Influenza Virus Vaccine 2007-06-02 00:00:00 Completed [facility] Influenza Virus Vaccine 2007-06-02 00:00:00 Completed [facility] Influenza Virus Vaccine 2007-06-02 00:00:00 Completed [facility] Influenza Virus Vaccine 2007-06-02 00:00:00 Completed [facility] Influenza Virus Vaccine 2007-06-02 00:00:00 Completed [facility] Influenza Virus Vaccine 2007-06-02 00:00:00 Completed [facility] Influenza Virus Vaccine 2007-06-02 00:00:00 Completed [facility] Influenza Virus Vaccine 2007-06-02 00:00:00 Completed [facility] Influenza Virus Vaccine 2007-06-02 00:00:00 Completed [facility] Influenza Virus Vaccine 2007-06-02 00:00:00 Completed [facility] Influenza Virus Vaccine 2007-06-02 00:00:00 Completed [facility] Influenza Virus Vaccine 2007-06-02 00:00:00 Completed [facility] Influenza Virus Vaccine 2007-06-02 00:00:00 Completed [facility] Influenza Virus Vaccine 2007-06-02 00:00:00 Completed [facility] Influenza Virus Vaccine 2007-06-02 00:00:00 Completed [facility] Influenza Virus Vaccine 2007-06-02 00:00:00 Completed [facility] Influenza Virus Vaccine 2007-06-02 00:00:00 Completed [facility] Influenza Virus Vaccine 2007-06-02 00:00:00 Completed [facility] Influenza Virus Vaccine 2007-06-02 00:00:00 Completed [facility] Influenza Virus Vaccine 2007-06-02 00:00:00 Completed [facility] Influenza Virus Vaccine 2007-06-02 00:00:00 Completed [facility] Influenza Virus Vaccine 2007-06-02 00:00:00 Completed [facility] Influenza Virus Vaccine 2007-06-02 00:00:00 Completed [facility] Influenza Virus Vaccine 2007-06-02 00:00:00 Completed [facility] Influenza Virus Vaccine 2007-06-02 00:00:00 Completed [facility] Influenza Virus Vaccine 2007-06-02 00:00:00 Completed [facility] Influenza Virus Vaccine 2007-06-02 00:00:00 Completed [facility] Influenza Virus Vaccine 2007-06-02 00:00:00 Completed [facility] Influenza Virus Vaccine 2007-06-02 00:00:00 Completed [facility] Influenza Virus Vaccine 2007-06-02 00:00:00 Completed [facility] Influenza Virus Vaccine 2007-06-02 00:00:00 Completed [facility] Influenza Virus Vaccine 2007-06-02 00:00:00 Completed [facility] Influenza Virus Vaccine 2007-06-02 00:00:00 Completed [facility] Influenza Virus Vaccine 2007-06-02 00:00:00 Completed [facility] Influenza Virus Vaccine 2007-06-02 00:00:00 Completed [facility] Influenza Virus Vaccine 2007-06-02 00:00:00 Completed [facility] HEPATITIS A 2005-11-09 00:00:00 Completed [facility] HEPATITIS A 2005-11-09 00:00:00 Completed [facility] HEPATITIS A 2005-11-09 00:00:00 Completed [facility] HEPATITIS A 2005-11-09 00:00:00 Completed [facility] HEPATITIS A 2005-11-09 00:00:00 Completed [facility] HEPATITIS A 2005-11-09 00:00:00 Completed [facility] HEPATITIS A 2005-11-09 00:00:00 Completed [facility] HEPATITIS A 2005-11-09 00:00:00 Completed [facility] HEPATITIS A 2005-11-09 00:00:00 Completed [facility] HEPATITIS A 2005-11-09 00:00:00 Completed [facility] HEPATITIS A 2005-11-09 00:00:00 Completed [facility] HEPATITIS A 2005-11-09 00:00:00 Completed [facility] HEPATITIS A 2005-11-09 00:00:00 Completed [facility] HEPATITIS A 2005-11-09 00:00:00 Completed [facility] HEPATITIS A 2005-11-09 00:00:00 Completed [facility] HEPATITIS A 2005-11-09 00:00:00 Completed [facility] HEPATITIS A 2005-11-09 00:00:00 Completed [facility] HEPATITIS A 2005-11-09 00:00:00 Completed [facility] HEPATITIS A 2005-11-09 00:00:00 Completed [facility] HEPATITIS A 2005-11-09 00:00:00 Completed [facility] HEPATITIS A 2005-11-09 00:00:00 Completed [facility] HEPATITIS A 2005-11-09 00:00:00 Completed [facility] HEPATITIS A 2005-11-09 00:00:00 Completed [facility] HEPATITIS A 2005-11-09 00:00:00 Completed [facility] HEPATITIS A 2005-11-09 00:00:00 Completed [facility] HEPATITIS A 2005-11-09 00:00:00 Completed [facility] HEPATITIS A 2005-11-09 00:00:00 Completed [facility] HEPATITIS A 2005-11-09 00:00:00 Completed [facility] HEPATITIS A 2005-11-09 00:00:00 Completed [facility] HEPATITIS A 2005-11-09 00:00:00 Completed [facility] HEPATITIS A 2005-11-09 00:00:00 Completed [facility] HEPATITIS A 2005-11-09 00:00:00 Completed [facility] HEPATITIS A 2005-11-09 00:00:00 Completed [facility] HEPATITIS A 2005-11-09 00:00:00 Completed [facility] HEPATITIS A 2005-11-09 00:00:00 Completed [facility] HEPATITIS A 2005-11-09 00:00:00 Completed [facility] HEPATITIS A 2005-11-09 00:00:00 Completed [facility] HEPATITIS A 2005-11-09 00:00:00 Completed [facility] HEPATITIS A 2005-11-09 00:00:00 Completed [facility] HEPATITIS A 2005-11-09 00:00:00 Completed [facility] HEPATITIS A 2005-11-09 00:00:00 Completed [facility] HEPATITIS A 2005-11-09 00:00:00 Completed [facility] HEPATITIS A 2005-11-09 00:00:00 Completed [facility] HEPATITIS A 2005-11-09 00:00:00 Completed [facility] HEPATITIS A 2005-11-09 00:00:00 Completed [facility] HEPATITIS A 2005-11-09 00:00:00 Completed [facility] HEPATITIS A 2005-11-09 00:00:00 Completed [facility] HEPATITIS A 2005-11-09 00:00:00 Completed [facility] HEPATITIS A 2005-11-09 00:00:00 Completed [facility] HEPATITIS A 2005-11-09 00:00:00 Completed [facility] MMR 2005-06-21 00:00:00 Completed [facility] DTAP 2005-06-21 00:00:00 Completed [facility] MMR 2005-06-21 00:00:00 Completed [facility] Polio (IPV/OPV) 2005-06-21 00:00:00 Completed [facility] Varicella (varivax)(chicken pox) 2005-06-21 00:00:00 Completed [facility] Polio (IPV/OPV) 2005-06-21 00:00:00 Completed [facility] Varicella (varivax)(chicken pox) 2005-06-21 00:00:00 Completed [facility] DTAP 2005-06-21 00:00:00 Completed [facility] MMR 2005-06-21 00:00:00 Completed [facility] Polio (IPV/OPV) 2005-06-21 00:00:00 Completed [facility] Varicella (varivax)(chicken pox) 2005-06-21 00:00:00 Completed [facility] DTAP 2005-06-21 00:00:00 Completed [facility] MMR 2005-06-21 00:00:00 Completed [facility] Polio (IPV/OPV) 2005-06-21 00:00:00 Completed [facility] Varicella (varivax)(chicken pox) 2005-06-21 00:00:00 Completed [facility] DTAP 2005-06-21 00:00:00 Completed [facility] MMR 2005-06-21 00:00:00 Completed [facility] Polio (IPV/OPV) 2005-06-21 00:00:00 Completed [facility] Varicella (varivax)(chicken pox) 2005-06-21 00:00:00 Completed [facility] DTAP 2005-06-21 00:00:00 Completed [facility] MMR 2005-06-21 00:00:00 Completed [facility] Polio (IPV/OPV) 2005-06-21 00:00:00 Completed [facility] Varicella (varivax)(chicken pox) 2005-06-21 00:00:00 Completed [facility] DTAP 2005-06-21 00:00:00 Completed [facility] MMR 2005-06-21 00:00:00 Completed [facility] Polio (IPV/OPV) 2005-06-21 00:00:00 Completed [facility] Varicella (varivax)(chicken pox) 2005-06-21 00:00:00 Completed [facility] DTAP 2005-06-21 00:00:00 Completed [facility] MMR 2005-06-21 00:00:00 Completed [facility] Polio (IPV/OPV) 2005-06-21 00:00:00 Completed [facility] Varicella (varivax)(chicken pox) 2005-06-21 00:00:00 Completed [facility] DTAP 2005-06-21 00:00:00 Completed [facility] DTAP 2005-06-21 00:00:00 Completed [facility] MMR 2005-06-21 00:00:00 Completed [facility] Polio (IPV/OPV) 2005-06-21 00:00:00 Completed [facility] Varicella (varivax)(chicken pox) 2005-06-21 00:00:00 Completed [facility] DTAP 2005-06-21 00:00:00 Completed [facility] MMR 2005-06-21 00:00:00 Completed [facility] Polio (IPV/OPV) 2005-06-21 00:00:00 Completed [facility] Varicella (varivax)(chicken pox) 2005-06-21 00:00:00 Completed [facility] DTAP 2005-06-21 00:00:00 Completed [facility] MMR 2005-06-21 00:00:00 Completed [facility] Polio (IPV/OPV) 2005-06-21 00:00:00 Completed [facility] Varicella (varivax)(chicken pox) 2005-06-21 00:00:00 Completed [facility] DTAP 2005-06-21 00:00:00 Completed [facility] MMR 2005-06-21 00:00:00 Completed [facility] MMR 2005-06-21 00:00:00 Completed [facility] Polio (IPV/OPV) 2005-06-21 00:00:00 Completed [facility] Varicella (varivax)(chicken pox) 2005-06-21 00:00:00 Completed [facility] DTAP 2005-06-21 00:00:00 Completed [facility] Polio (IPV/OPV) 2005-06-21 00:00:00 Completed [facility] MMR 2005-06-21 00:00:00 Completed [facility] Polio (IPV/OPV) 2005-06-21 00:00:00 Completed [facility] Varicella (varivax)(chicken pox) 2005-06-21 00:00:00 Completed [facility] Varicella (varivax)(chicken pox) 2005-06-21 00:00:00 Completed [facility] DTAP 2005-06-21 00:00:00 Completed [facility] MMR 2005-06-21 00:00:00 Completed [facility] Polio (IPV/OPV) 2005-06-21 00:00:00 Completed [facility] Varicella (varivax)(chicken pox) 2005-06-21 00:00:00 Completed [facility] DTAP 2005-06-21 00:00:00 Completed [facility] MMR 2005-06-21 00:00:00 Completed [facility] Polio (IPV/OPV) 2005-06-21 00:00:00 Completed [facility] Varicella (varivax)(chicken pox) 2005-06-21 00:00:00 Completed [facility] DTAP 2005-06-21 00:00:00 Completed [facility] MMR 2005-06-21 00:00:00 Completed [facility] Polio (IPV/OPV) 2005-06-21 00:00:00 Completed [facility] Varicella (varivax)(chicken pox) 2005-06-21 00:00:00 Completed [facility] DTAP 2005-06-21 00:00:00 Completed [facility] MMR 2005-06-21 00:00:00 Completed [facility] Polio (IPV/OPV) 2005-06-21 00:00:00 Completed [facility] Varicella (varivax)(chicken pox) 2005-06-21 00:00:00 Completed [facility] DTAP 2005-06-21 00:00:00 Completed [facility] DTAP 2005-06-21 00:00:00 Completed [facility] MMR 2005-06-21 00:00:00 Completed [facility] Polio (IPV/OPV) 2005-06-21 00:00:00 Completed [facility] Varicella (varivax)(chicken pox) 2005-06-21 00:00:00 Completed [facility] DTAP 2005-06-21 00:00:00 Completed [facility] MMR 2005-06-21 00:00:00 Completed [facility] Polio (IPV/OPV) 2005-06-21 00:00:00 Completed [facility] Varicella (varivax)(chicken pox) 2005-06-21 00:00:00 Completed [facility] DTAP 2005-06-21 00:00:00 Completed [facility] MMR 2005-06-21 00:00:00 Completed [facility] Polio (IPV/OPV) 2005-06-21 00:00:00 Completed [facility] Varicella (varivax)(chicken pox) 2005-06-21 00:00:00 Completed [facility] MMR 2005-06-21 00:00:00 Completed [facility] DTAP 2005-06-21 00:00:00 Completed [facility] MMR 2005-06-21 00:00:00 Completed [facility] Polio (IPV/OPV) 2005-06-21 00:00:00 Completed [facility] Varicella (varivax)(chicken pox) 2005-06-21 00:00:00 Completed [facility] DTAP 2005-06-21 00:00:00 Completed [facility] Polio (IPV/OPV) 2005-06-21 00:00:00 Completed [facility] Varicella (varivax)(chicken pox) 2005-06-21 00:00:00 Completed [facility] MMR 2005-06-21 00:00:00 Completed [facility] Polio (IPV/OPV) 2005-06-21 00:00:00 Completed [facility] Varicella (varivax)(chicken pox) 2005-06-21 00:00:00 Completed [facility] DTAP 2005-06-21 00:00:00 Completed [facility] MMR 2005-06-21 00:00:00 Completed [facility] Polio (IPV/OPV) 2005-06-21 00:00:00 Completed [facility] Varicella (varivax)(chicken pox) 2005-06-21 00:00:00 Completed [facility] DTAP 2005-06-21 00:00:00 Completed [facility] MMR 2005-06-21 00:00:00 Completed [facility] Polio (IPV/OPV) 2005-06-21 00:00:00 Completed [facility] Varicella (varivax)(chicken pox) 2005-06-21 00:00:00 Completed [facility] DTAP 2005-06-21 00:00:00 Completed [facility] MMR 2005-06-21 00:00:00 Completed [facility] Polio (IPV/OPV) 2005-06-21 00:00:00 Completed [facility] Varicella (varivax)(chicken pox) 2005-06-21 00:00:00 Completed [facility] DTAP 2005-06-21 00:00:00 Completed [facility] MMR 2005-06-21 00:00:00 Completed [facility] DTAP 2005-06-21 00:00:00 Completed [facility] Polio (IPV/OPV) 2005-06-21 00:00:00 Completed [facility] Varicella (varivax)(chicken pox) 2005-06-21 00:00:00 Completed [facility] DTAP 2005-06-21 00:00:00 Completed [facility] MMR 2005-06-21 00:00:00 Completed [facility] Polio (IPV/OPV) 2005-06-21 00:00:00 Completed [facility] Varicella (varivax)(chicken pox) 2005-06-21 00:00:00 Completed [facility] MMR 2005-06-21 00:00:00 Completed [facility] Polio (IPV/OPV) 2005-06-21 00:00:00 Completed [facility] Varicella (varivax)(chicken pox) 2005-06-21 00:00:00 Completed [facility] DTAP 2005-06-21 00:00:00 Completed [facility] MMR 2005-06-21 00:00:00 Completed [facility] Polio (IPV/OPV) 2005-06-21 00:00:00 Completed [facility] Varicella (varivax)(chicken pox) 2005-06-21 00:00:00 Completed [facility] DTAP 2005-06-21 00:00:00 Completed [facility] MMR 2005-06-21 00:00:00 Completed [facility] Polio (IPV/OPV) 2005-06-21 00:00:00 Completed [facility] Varicella (varivax)(chicken pox) 2005-06-21 00:00:00 Completed [facility] DTAP 2005-06-21 00:00:00 Completed [facility] MMR 2005-06-21 00:00:00 Completed [facility] Polio (IPV/OPV) 2005-06-21 00:00:00 Completed [facility] Varicella (varivax)(chicken pox) 2005-06-21 00:00:00 Completed [facility] DTAP 2005-06-21 00:00:00 Completed [facility] MMR 2005-06-21 00:00:00 Completed [facility] Polio (IPV/OPV) 2005-06-21 00:00:00 Completed [facility] Varicella (varivax)(chicken pox) 2005-06-21 00:00:00 Completed [facility] DTAP 2005-06-21 00:00:00 Completed [facility] MMR 2005-06-21 00:00:00 Completed [facility] Polio (IPV/OPV) 2005-06-21 00:00:00 Completed [facility] Varicella (varivax)(chicken pox) 2005-06-21 00:00:00 Completed [facility] DTAP 2005-06-21 00:00:00 Completed [facility] MMR 2005-06-21 00:00:00 Completed [facility] Polio (IPV/OPV) 2005-06-21 00:00:00 Completed [facility] Varicella (varivax)(chicken pox) 2005-06-21 00:00:00 Completed [facility] DTAP 2005-06-21 00:00:00 Completed [facility] MMR 2005-06-21 00:00:00 Completed [facility] Polio (IPV/OPV) 2005-06-21 00:00:00 Completed [facility] Varicella (varivax)(chicken pox) 2005-06-21 00:00:00 Completed [facility] DTAP 2005-06-21 00:00:00 Completed [facility] MMR 2005-06-21 00:00:00 Completed [facility] Polio (IPV/OPV) 2005-06-21 00:00:00 Completed [facility] Varicella (varivax)(chicken pox) 2005-06-21 00:00:00 Completed [facility] DTAP 2005-06-21 00:00:00 Completed [facility] MMR 2005-06-21 00:00:00 Completed [facility] Polio (IPV/OPV) 2005-06-21 00:00:00 Completed [facility] Varicella (varivax)(chicken pox) 2005-06-21 00:00:00 Completed [facility] DTAP 2005-06-21 00:00:00 Completed [facility] MMR 2005-06-21 00:00:00 Completed [facility] Polio (IPV/OPV) 2005-06-21 00:00:00 Completed [facility] Varicella (varivax)(chicken pox) 2005-06-21 00:00:00 Completed [facility] DTAP 2005-06-21 00:00:00 Completed [facility] MMR 2005-06-21 00:00:00 Completed [facility] Polio (IPV/OPV) 2005-06-21 00:00:00 Completed [facility] Varicella (varivax)(chicken pox) 2005-06-21 00:00:00 Completed [facility] DTAP 2005-06-21 00:00:00 Completed [facility] MMR 2005-06-21 00:00:00 Completed [facility] Polio (IPV/OPV) 2005-06-21 00:00:00 Completed [facility] Varicella (varivax)(chicken pox) 2005-06-21 00:00:00 Completed [facility] DTAP 2005-06-21 00:00:00 Completed [facility] MMR 2005-06-21 00:00:00 Completed [facility] Polio (IPV/OPV) 2005-06-21 00:00:00 Completed [facility] Varicella (varivax)(chicken pox) 2005-06-21 00:00:00 Completed [facility] DTAP 2005-06-21 00:00:00 Completed [facility] MMR 2005-06-21 00:00:00 Completed [facility] Polio (IPV/OPV) 2005-06-21 00:00:00 Completed [facility] Varicella (varivax)(chicken pox) 2005-06-21 00:00:00 Completed [facility] DTAP 2005-06-21 00:00:00 Completed [facility] MMR 2005-06-21 00:00:00 Completed [facility] Polio (IPV/OPV) 2005-06-21 00:00:00 Completed [facility] Varicella (varivax)(chicken pox) 2005-06-21 00:00:00 Completed [facility] DTAP 2005-06-21 00:00:00 Completed [facility] MMR 2005-06-21 00:00:00 Completed [facility] Polio (IPV/OPV) 2005-06-21 00:00:00 Completed [facility] Varicella (varivax)(chicken pox) 2005-06-21 00:00:00 Completed [facility] DTAP 2005-06-21 00:00:00 Completed [facility] DTAP 2005-06-21 00:00:00 Completed [facility] MMR 2005-06-21 00:00:00 Completed [facility] Polio (IPV/OPV) 2005-06-21 00:00:00 Completed [facility] Varicella (varivax)(chicken pox) 2005-06-21 00:00:00 Completed [facility] DTAP 2005-06-21 00:00:00 Completed [facility] MMR 2005-06-21 00:00:00 Completed [facility] Polio (IPV/OPV) 2005-06-21 00:00:00 Completed [facility] Varicella (varivax)(chicken pox) 2005-06-21 00:00:00 Completed [facility] DTAP 2005-06-21 00:00:00 Completed [facility] MMR 2005-06-21 00:00:00 Completed [facility] Polio (IPV/OPV) 2005-06-21 00:00:00 Completed [facility] Varicella (varivax)(chicken pox) 2005-06-21 00:00:00 Completed [facility] DTAP 2005-06-21 00:00:00 Completed [facility] MMR 2005-06-21 00:00:00 Completed [facility] Polio (IPV/OPV) 2005-06-21 00:00:00 Completed [facility] Varicella (varivax)(chicken pox) 2005-06-21 00:00:00 Completed [facility] HEPATITIS A 2005-03-04 00:00:00 Completed [facility] HEPATITIS A 2005-03-04 00:00:00 Completed [facility] HEPATITIS A 2005-03-04 00:00:00 Completed [facility] HEPATITIS A 2005-03-04 00:00:00 Completed [facility] HEPATITIS A 2005-03-04 00:00:00 Completed [facility] HEPATITIS A 2005-03-04 00:00:00 Completed [facility] HEPATITIS A 2005-03-04 00:00:00 Completed [facility] HEPATITIS A 2005-03-04 00:00:00 Completed [facility] HEPATITIS A 2005-03-04 00:00:00 Completed [facility] HEPATITIS A 2005-03-04 00:00:00 Completed [facility] HEPATITIS A 2005-03-04 00:00:00 Completed [facility] HEPATITIS A 2005-03-04 00:00:00 Completed [facility] HEPATITIS A 2005-03-04 00:00:00 Completed [facility] HEPATITIS A 2005-03-04 00:00:00 Completed [facility] HEPATITIS A 2005-03-04 00:00:00 Completed [facility] HEPATITIS A 2005-03-04 00:00:00 Completed [facility] HEPATITIS A 2005-03-04 00:00:00 Completed [facility] HEPATITIS A 2005-03-04 00:00:00 Completed [facility] HEPATITIS A 2005-03-04 00:00:00 Completed [facility] HEPATITIS A 2005-03-04 00:00:00 Completed [facility] HEPATITIS A 2005-03-04 00:00:00 Completed [facility] HEPATITIS A 2005-03-04 00:00:00 Completed [facility] HEPATITIS A 2005-03-04 00:00:00 Completed [facility] HEPATITIS A 2005-03-04 00:00:00 Completed [facility] HEPATITIS A 2005-03-04 00:00:00 Completed [facility] HEPATITIS A 2005-03-04 00:00:00 Completed [facility] HEPATITIS A 2005-03-04 00:00:00 Completed [facility] HEPATITIS A 2005-03-04 00:00:00 Completed [facility] HEPATITIS A 2005-03-04 00:00:00 Completed [facility] HEPATITIS A 2005-03-04 00:00:00 Completed [facility] HEPATITIS A 2005-03-04 00:00:00 Completed [facility] HEPATITIS A 2005-03-04 00:00:00 Completed [facility] HEPATITIS A 2005-03-04 00:00:00 Completed [facility] HEPATITIS A 2005-03-04 00:00:00 Completed [facility] HEPATITIS A 2005-03-04 00:00:00 Completed [facility] HEPATITIS A 2005-03-04 00:00:00 Completed [facility] HEPATITIS A 2005-03-04 00:00:00 Completed [facility] HEPATITIS A 2005-03-04 00:00:00 Completed [facility] HEPATITIS A 2005-03-04 00:00:00 Completed [facility] HEPATITIS A 2005-03-04 00:00:00 Completed [facility] HEPATITIS A 2005-03-04 00:00:00 Completed [facility] HEPATITIS A 2005-03-04 00:00:00 Completed [facility] HEPATITIS A 2005-03-04 00:00:00 Completed [facility] HEPATITIS A 2005-03-04 00:00:00 Completed [facility] HEPATITIS A 2005-03-04 00:00:00 Completed [facility] HEPATITIS A 2005-03-04 00:00:00 Completed [facility] HEPATITIS A 2005-03-04 00:00:00 Completed [facility] HEPATITIS A 2005-03-04 00:00:00 Completed [facility] HEPATITIS A 2005-03-04 00:00:00 Completed [facility] HEPATITIS A 2005-03-04 00:00:00 Completed [facility] DTAP 2002-05-29 00:00:00 Completed [facility] HIB 4 Dose Schedule 2002-05-29 00:00:00 Completed [facility] Pneumococcal 7 Conjugate, PCV7 (Prevnar7) 2002-05-29 00:00:00 Completed [facility] DTAP 2002-05-29 00:00:00 Completed [facility] HIB 4 Dose Schedule 2002-05-29 00:00:00 Completed [facility] Pneumococcal 7 Conjugate, PCV7 (Prevnar7) 2002-05-29 00:00:00 Completed [facility] Pneumococcal 7 Conjugate, PCV7 (Prevnar7) 2002-05-29 00:00:00 Completed [facility] DTAP 2002-05-29 00:00:00 Completed [facility] HIB 4 Dose Schedule 2002-05-29 00:00:00 Completed [facility] Pneumococcal 7 Conjugate, PCV7 (Prevnar7) 2002-05-29 00:00:00 Completed [facility] DTAP 2002-05-29 00:00:00 Completed [facility] HIB 4 Dose Schedule 2002-05-29 00:00:00 Completed [facility] Pneumococcal 7 Conjugate, PCV7 (Prevnar7) 2002-05-29 00:00:00 Completed [facility] DTAP 2002-05-29 00:00:00 Completed [facility] HIB 4 Dose Schedule 2002-05-29 00:00:00 Completed [facility] Pneumococcal 7 Conjugate, PCV7 (Prevnar7) 2002-05-29 00:00:00 Completed [facility] DTAP 2002-05-29 00:00:00 Completed [facility] HIB 4 Dose Schedule 2002-05-29 00:00:00 Completed [facility] Pneumococcal 7 Conjugate, PCV7 (Prevnar7) 2002-05-29 00:00:00 Completed [facility] DTAP 2002-05-29 00:00:00 Completed [facility] HIB 4 Dose Schedule 2002-05-29 00:00:00 Completed [facility] DTAP 2002-05-29 00:00:00 Completed [facility] Pneumococcal 7 Conjugate, PCV7 (Prevnar7) 2002-05-29 00:00:00 Completed [facility] DTAP 2002-05-29 00:00:00 Completed [facility] HIB 4 Dose Schedule 2002-05-29 00:00:00 Completed [facility] Pneumococcal 7 Conjugate, PCV7 (Prevnar7) 2002-05-29 00:00:00 Completed [facility] HIB 4 Dose Schedule 2002-05-29 00:00:00 Completed [facility] DTAP 2002-05-29 00:00:00 Completed [facility] HIB 4 Dose Schedule 2002-05-29 00:00:00 Completed [facility] Pneumococcal 7 Conjugate, PCV7 (Prevnar7) 2002-05-29 00:00:00 Completed [facility] DTAP 2002-05-29 00:00:00 Completed [facility] HIB 4 Dose Schedule 2002-05-29 00:00:00 Completed [facility] Pneumococcal 7 Conjugate, PCV7 (Prevnar7) 2002-05-29 00:00:00 Completed [facility] DTAP 2002-05-29 00:00:00 Completed [facility] HIB 4 Dose Schedule 2002-05-29 00:00:00 Completed [facility] Pneumococcal 7 Conjugate, PCV7 (Prevnar7) 2002-05-29 00:00:00 Completed [facility] DTAP 2002-05-29 00:00:00 Completed [facility] HIB 4 Dose Schedule 2002-05-29 00:00:00 Completed [facility] Pneumococcal 7 Conjugate, PCV7 (Prevnar7) 2002-05-29 00:00:00 Completed [facility] DTAP 2002-05-29 00:00:00 Completed [facility] Pneumococcal 7 Conjugate, PCV7 (Prevnar7) 2002-05-29 00:00:00 Completed [facility] HIB 4 Dose Schedule 2002-05-29 00:00:00 Completed [facility] Pneumococcal 7 Conjugate, PCV7 (Prevnar7) 2002-05-29 00:00:00 Completed [facility] DTAP 2002-05-29 00:00:00 Completed [facility] HIB 4 Dose Schedule 2002-05-29 00:00:00 Completed [facility] Pneumococcal 7 Conjugate, PCV7 (Prevnar7) 2002-05-29 00:00:00 Completed [facility] DTAP 2002-05-29 00:00:00 Completed [facility] HIB 4 Dose Schedule 2002-05-29 00:00:00 Completed [facility] Pneumococcal 7 Conjugate, PCV7 (Prevnar7) 2002-05-29 00:00:00 Completed [facility] DTAP 2002-05-29 00:00:00 Completed [facility] HIB 4 Dose Schedule 2002-05-29 00:00:00 Completed [facility] DTAP 2002-05-29 00:00:00 Completed [facility] Pneumococcal 7 Conjugate, PCV7 (Prevnar7) 2002-05-29 00:00:00 Completed [facility] DTAP 2002-05-29 00:00:00 Completed [facility] HIB 4 Dose Schedule 2002-05-29 00:00:00 Completed [facility] HIB 4 Dose Schedule 2002-05-29 00:00:00 Completed [facility] Pneumococcal 7 Conjugate, PCV7 (Prevnar7) 2002-05-29 00:00:00 Completed [facility] DTAP 2002-05-29 00:00:00 Completed [facility] HIB 4 Dose Schedule 2002-05-29 00:00:00 Completed [facility] Pneumococcal 7 Conjugate, PCV7 (Prevnar7) 2002-05-29 00:00:00 Completed [facility] DTAP 2002-05-29 00:00:00 Completed [facility] HIB 4 Dose Schedule 2002-05-29 00:00:00 Completed [facility] Pneumococcal 7 Conjugate, PCV7 (Prevnar7) 2002-05-29 00:00:00 Completed [facility] DTAP 2002-05-29 00:00:00 Completed [facility] HIB 4 Dose Schedule 2002-05-29 00:00:00 Completed [facility] Pneumococcal 7 Conjugate, PCV7 (Prevnar7) 2002-05-29 00:00:00 Completed [facility] DTAP 2002-05-29 00:00:00 Completed [facility] HIB 4 Dose Schedule 2002-05-29 00:00:00 Completed [facility] Pneumococcal 7 Conjugate, PCV7 (Prevnar7) 2002-05-29 00:00:00 Completed [facility] Pneumococcal 7 Conjugate, PCV7 (Prevnar7) 2002-05-29 00:00:00 Completed [facility] DTAP 2002-05-29 00:00:00 Completed [facility] HIB 4 Dose Schedule 2002-05-29 00:00:00 Completed [facility] Pneumococcal 7 Conjugate, PCV7 (Prevnar7) 2002-05-29 00:00:00 Completed [facility] DTAP 2002-05-29 00:00:00 Completed [facility] HIB 4 Dose Schedule 2002-05-29 00:00:00 Completed [facility] Pneumococcal 7 Conjugate, PCV7 (Prevnar7) 2002-05-29 00:00:00 Completed [facility] DTAP 2002-05-29 00:00:00 Completed [facility] HIB 4 Dose Schedule 2002-05-29 00:00:00 Completed [facility] Pneumococcal 7 Conjugate, PCV7 (Prevnar7) 2002-05-29 00:00:00 Completed [facility] DTAP 2002-05-29 00:00:00 Completed [facility] HIB 4 Dose Schedule 2002-05-29 00:00:00 Completed [facility] DTAP 2002-05-29 00:00:00 Completed [facility] Pneumococcal 7 Conjugate, PCV7 (Prevnar7) 2002-05-29 00:00:00 Completed [facility] DTAP 2002-05-29 00:00:00 Completed [facility] HIB 4 Dose Schedule 2002-05-29 00:00:00 Completed [facility] HIB 4 Dose Schedule 2002-05-29 00:00:00 Completed [facility] Pneumococcal 7 Conjugate, PCV7 (Prevnar7) 2002-05-29 00:00:00 Completed [facility] Pneumococcal 7 Conjugate, PCV7 (Prevnar7) 2002-05-29 00:00:00 Completed [facility] DTAP 2002-05-29 00:00:00 Completed [facility] HIB 4 Dose Schedule 2002-05-29 00:00:00 Completed [facility] Pneumococcal 7 Conjugate, PCV7 (Prevnar7) 2002-05-29 00:00:00 Completed [facility] DTAP 2002-05-29 00:00:00 Completed [facility] HIB 4 Dose Schedule 2002-05-29 00:00:00 Completed [facility] Pneumococcal 7 Conjugate, PCV7 (Prevnar7) 2002-05-29 00:00:00 Completed [facility] DTAP 2002-05-29 00:00:00 Completed [facility] HIB 4 Dose Schedule 2002-05-29 00:00:00 Completed [facility] Pneumococcal 7 Conjugate, PCV7 (Prevnar7) 2002-05-29 00:00:00 Completed [facility] DTAP 2002-05-29 00:00:00 Completed [facility] HIB 4 Dose Schedule 2002-05-29 00:00:00 Completed [facility] Pneumococcal 7 Conjugate, PCV7 (Prevnar7) 2002-05-29 00:00:00 Completed [facility] DTAP 2002-05-29 00:00:00 Completed [facility] HIB 4 Dose Schedule 2002-05-29 00:00:00 Completed [facility] Pneumococcal 7 Conjugate, PCV7 (Prevnar7) 2002-05-29 00:00:00 Completed [facility] DTAP 2002-05-29 00:00:00 Completed [facility] HIB 4 Dose Schedule 2002-05-29 00:00:00 Completed [facility] Pneumococcal 7 Conjugate, PCV7 (Prevnar7) 2002-05-29 00:00:00 Completed [facility] DTAP 2002-05-29 00:00:00 Completed [facility] HIB 4 Dose Schedule 2002-05-29 00:00:00 Completed [facility] Pneumococcal 7 Conjugate, PCV7 (Prevnar7) 2002-05-29 00:00:00 Completed [facility] DTAP 2002-05-29 00:00:00 Completed [facility] HIB 4 Dose Schedule 2002-05-29 00:00:00 Completed [facility] Pneumococcal 7 Conjugate, PCV7 (Prevnar7) 2002-05-29 00:00:00 Completed [facility] DTAP 2002-05-29 00:00:00 Completed [facility] HIB 4 Dose Schedule 2002-05-29 00:00:00 Completed [facility] Pneumococcal 7 Conjugate, PCV7 (Prevnar7) 2002-05-29 00:00:00 Completed [facility] DTAP 2002-05-29 00:00:00 Completed [facility] HIB 4 Dose Schedule 2002-05-29 00:00:00 Completed [facility] Pneumococcal 7 Conjugate, PCV7 (Prevnar7) 2002-05-29 00:00:00 Completed [facility] DTAP 2002-05-29 00:00:00 Completed [facility] HIB 4 Dose Schedule 2002-05-29 00:00:00 Completed [facility] Pneumococcal 7 Conjugate, PCV7 (Prevnar7) 2002-05-29 00:00:00 Completed [facility] DTAP 2002-05-29 00:00:00 Completed [facility] HIB 4 Dose Schedule 2002-05-29 00:00:00 Completed [facility] Pneumococcal 7 Conjugate, PCV7 (Prevnar7) 2002-05-29 00:00:00 Completed [facility] DTAP 2002-05-29 00:00:00 Completed [facility] HIB 4 Dose Schedule 2002-05-29 00:00:00 Completed [facility] Pneumococcal 7 Conjugate, PCV7 (Prevnar7) 2002-05-29 00:00:00 Completed [facility] DTAP 2002-05-29 00:00:00 Completed [facility] HIB 4 Dose Schedule 2002-05-29 00:00:00 Completed [facility] Pneumococcal 7 Conjugate, PCV7 (Prevnar7) 2002-05-29 00:00:00 Completed [facility] DTAP 2002-05-29 00:00:00 Completed [facility] HIB 4 Dose Schedule 2002-05-29 00:00:00 Completed [facility] Pneumococcal 7 Conjugate, PCV7 (Prevnar7) 2002-05-29 00:00:00 Completed [facility] DTAP 2002-05-29 00:00:00 Completed [facility] HIB 4 Dose Schedule 2002-05-29 00:00:00 Completed [facility] Pneumococcal 7 Conjugate, PCV7 (Prevnar7) 2002-05-29 00:00:00 Completed [facility] DTAP 2002-05-29 00:00:00 Completed [facility] DTAP 2002-05-29 00:00:00 Completed [facility] HIB 4 Dose Schedule 2002-05-29 00:00:00 Completed [facility] Pneumococcal 7 Conjugate, PCV7 (Prevnar7) 2002-05-29 00:00:00 Completed [facility] DTAP 2002-05-29 00:00:00 Completed [facility] HIB 4 Dose Schedule 2002-05-29 00:00:00 Completed [facility] HIB 4 Dose Schedule 2002-05-29 00:00:00 Completed [facility] Pneumococcal 7 Conjugate, PCV7 (Prevnar7) 2002-05-29 00:00:00 Completed [facility] DTAP 2002-05-29 00:00:00 Completed [facility] HIB 4 Dose Schedule 2002-05-29 00:00:00 Completed [facility] Pneumococcal 7 Conjugate, PCV7 (Prevnar7) 2002-05-29 00:00:00 Completed [facility] DTAP 2002-05-29 00:00:00 Completed [facility] HIB 4 Dose Schedule 2002-05-29 00:00:00 Completed [facility] Pneumococcal 7 Conjugate, PCV7 (Prevnar7) 2002-05-29 00:00:00 Completed [facility] DTAP 2002-01-19 00:00:00 Completed [facility] HIB 4 Dose Schedule 2002-01-19 00:00:00 Completed [facility] MMR 2002-01-19 00:00:00 Completed [facility] Polio (IPV/OPV) 2002-01-19 00:00:00 Completed [facility] Polio (IPV/OPV) 2002-01-19 00:00:00 Completed [facility] DTAP 2002-01-19 00:00:00 Completed [facility] HIB 4 Dose Schedule 2002-01-19 00:00:00 Completed [facility] MMR 2002-01-19 00:00:00 Completed [facility] Polio (IPV/OPV) 2002-01-19 00:00:00 Completed [facility] DTAP 2002-01-19 00:00:00 Completed [facility] HIB 4 Dose Schedule 2002-01-19 00:00:00 Completed [facility] MMR 2002-01-19 00:00:00 Completed [facility] Polio (IPV/OPV) 2002-01-19 00:00:00 Completed [facility] DTAP 2002-01-19 00:00:00 Completed [facility] HIB 4 Dose Schedule 2002-01-19 00:00:00 Completed [facility] MMR 2002-01-19 00:00:00 Completed [facility] Polio (IPV/OPV) 2002-01-19 00:00:00 Completed [facility] DTAP 2002-01-19 00:00:00 Completed [facility] HIB 4 Dose Schedule 2002-01-19 00:00:00 Completed [facility] MMR 2002-01-19 00:00:00 Completed [facility] Polio (IPV/OPV) 2002-01-19 00:00:00 Completed [facility] DTAP 2002-01-19 00:00:00 Completed [facility] HIB 4 Dose Schedule 2002-01-19 00:00:00 Completed [facility] MMR 2002-01-19 00:00:00 Completed [facility] Polio (IPV/OPV) 2002-01-19 00:00:00 Completed [facility] DTAP 2002-01-19 00:00:00 Completed [facility] HIB 4 Dose Schedule 2002-01-19 00:00:00 Completed [facility] DTAP 2002-01-19 00:00:00 Completed [facility] MMR 2002-01-19 00:00:00 Completed [facility] Polio (IPV/OPV) 2002-01-19 00:00:00 Completed [facility] DTAP 2002-01-19 00:00:00 Completed [facility] HIB 4 Dose Schedule 2002-01-19 00:00:00 Completed [facility] MMR 2002-01-19 00:00:00 Completed [facility] Polio (IPV/OPV) 2002-01-19 00:00:00 Completed [facility] HIB 4 Dose Schedule 2002-01-19 00:00:00 Completed [facility] DTAP 2002-01-19 00:00:00 Completed [facility] HIB 4 Dose Schedule 2002-01-19 00:00:00 Completed [facility] MMR 2002-01-19 00:00:00 Completed [facility] Polio (IPV/OPV) 2002-01-19 00:00:00 Completed [facility] DTAP 2002-01-19 00:00:00 Completed [facility] HIB 4 Dose Schedule 2002-01-19 00:00:00 Completed [facility] MMR 2002-01-19 00:00:00 Completed [facility] Polio (IPV/OPV) 2002-01-19 00:00:00 Completed [facility] DTAP 2002-01-19 00:00:00 Completed [facility] MMR 2002-01-19 00:00:00 Completed [facility] HIB 4 Dose Schedule 2002-01-19 00:00:00 Completed [facility] MMR 2002-01-19 00:00:00 Completed [facility] Polio (IPV/OPV) 2002-01-19 00:00:00 Completed [facility] DTAP 2002-01-19 00:00:00 Completed [facility] Polio (IPV/OPV) 2002-01-19 00:00:00 Completed [facility] HIB 4 Dose Schedule 2002-01-19 00:00:00 Completed [facility] MMR 2002-01-19 00:00:00 Completed [facility] Polio (IPV/OPV) 2002-01-19 00:00:00 Completed [facility] DTAP 2002-01-19 00:00:00 Completed [facility] HIB 4 Dose Schedule 2002-01-19 00:00:00 Completed [facility] MMR 2002-01-19 00:00:00 Completed [facility] Polio (IPV/OPV) 2002-01-19 00:00:00 Completed [facility] DTAP 2002-01-19 00:00:00 Completed [facility] HIB 4 Dose Schedule 2002-01-19 00:00:00 Completed [facility] MMR 2002-01-19 00:00:00 Completed [facility] Polio (IPV/OPV) 2002-01-19 00:00:00 Completed [facility] DTAP 2002-01-19 00:00:00 Completed [facility] HIB 4 Dose Schedule 2002-01-19 00:00:00 Completed [facility] MMR 2002-01-19 00:00:00 Completed [facility] Polio (IPV/OPV) 2002-01-19 00:00:00 Completed [facility] DTAP 2002-01-19 00:00:00 Completed [facility] DTAP 2002-01-19 00:00:00 Completed [facility] HIB 4 Dose Schedule 2002-01-19 00:00:00 Completed [facility] MMR 2002-01-19 00:00:00 Completed [facility] Polio (IPV/OPV) 2002-01-19 00:00:00 Completed [facility] DTAP 2002-01-19 00:00:00 Completed [facility] HIB 4 Dose Schedule 2002-01-19 00:00:00 Completed [facility] HIB 4 Dose Schedule 2002-01-19 00:00:00 Completed [facility] MMR 2002-01-19 00:00:00 Completed [facility] Polio (IPV/OPV) 2002-01-19 00:00:00 Completed [facility] DTAP 2002-01-19 00:00:00 Completed [facility] HIB 4 Dose Schedule 2002-01-19 00:00:00 Completed [facility] MMR 2002-01-19 00:00:00 Completed [facility] Polio (IPV/OPV) 2002-01-19 00:00:00 Completed [facility] DTAP 2002-01-19 00:00:00 Completed [facility] HIB 4 Dose Schedule 2002-01-19 00:00:00 Completed [facility] MMR 2002-01-19 00:00:00 Completed [facility] Polio (IPV/OPV) 2002-01-19 00:00:00 Completed [facility] MMR 2002-01-19 00:00:00 Completed [facility] DTAP 2002-01-19 00:00:00 Completed [facility] HIB 4 Dose Schedule 2002-01-19 00:00:00 Completed [facility] MMR 2002-01-19 00:00:00 Completed [facility] Polio (IPV/OPV) 2002-01-19 00:00:00 Completed [facility] Polio (IPV/OPV) 2002-01-19 00:00:00 Completed [facility] DTAP 2002-01-19 00:00:00 Completed [facility] HIB 4 Dose Schedule 2002-01-19 00:00:00 Completed [facility] MMR 2002-01-19 00:00:00 Completed [facility] Polio (IPV/OPV) 2002-01-19 00:00:00 Completed [facility] DTAP 2002-01-19 00:00:00 Completed [facility] HIB 4 Dose Schedule 2002-01-19 00:00:00 Completed [facility] MMR 2002-01-19 00:00:00 Completed [facility] Polio (IPV/OPV) 2002-01-19 00:00:00 Completed [facility] DTAP 2002-01-19 00:00:00 Completed [facility] HIB 4 Dose Schedule 2002-01-19 00:00:00 Completed [facility] MMR 2002-01-19 00:00:00 Completed [facility] Polio (IPV/OPV) 2002-01-19 00:00:00 Completed [facility] DTAP 2002-01-19 00:00:00 Completed [facility] HIB 4 Dose Schedule 2002-01-19 00:00:00 Completed [facility] MMR 2002-01-19 00:00:00 Completed [facility] Polio (IPV/OPV) 2002-01-19 00:00:00 Completed [facility] DTAP 2002-01-19 00:00:00 Completed [facility] DTAP 2002-01-19 00:00:00 Completed [facility] HIB 4 Dose Schedule 2002-01-19 00:00:00 Completed [facility] MMR 2002-01-19 00:00:00 Completed [facility] Polio (IPV/OPV) 2002-01-19 00:00:00 Completed [facility] DTAP 2002-01-19 00:00:00 Completed [facility] HIB 4 Dose Schedule 2002-01-19 00:00:00 Completed [facility] HIB 4 Dose Schedule 2002-01-19 00:00:00 Completed [facility] MMR 2002-01-19 00:00:00 Completed [facility] Polio (IPV/OPV) 2002-01-19 00:00:00 Completed [facility] MMR 2002-01-19 00:00:00 Completed [facility] Polio (IPV/OPV) 2002-01-19 00:00:00 Completed [facility] DTAP 2002-01-19 00:00:00 Completed [facility] HIB 4 Dose Schedule 2002-01-19 00:00:00 Completed [facility] MMR 2002-01-19 00:00:00 Completed [facility] Polio (IPV/OPV) 2002-01-19 00:00:00 Completed [facility] DTAP 2002-01-19 00:00:00 Completed [facility] HIB 4 Dose Schedule 2002-01-19 00:00:00 Completed [facility] MMR 2002-01-19 00:00:00 Completed [facility] Polio (IPV/OPV) 2002-01-19 00:00:00 Completed [facility] DTAP 2002-01-19 00:00:00 Completed [facility] HIB 4 Dose Schedule 2002-01-19 00:00:00 Completed [facility] MMR 2002-01-19 00:00:00 Completed [facility] Polio (IPV/OPV) 2002-01-19 00:00:00 Completed [facility] DTAP 2002-01-19 00:00:00 Completed [facility] HIB 4 Dose Schedule 2002-01-19 00:00:00 Completed [facility] MMR 2002-01-19 00:00:00 Completed [facility] Polio (IPV/OPV) 2002-01-19 00:00:00 Completed [facility] DTAP 2002-01-19 00:00:00 Completed [facility] HIB 4 Dose Schedule 2002-01-19 00:00:00 Completed [facility] MMR 2002-01-19 00:00:00 Completed [facility] Polio (IPV/OPV) 2002-01-19 00:00:00 Completed [facility] DTAP 2002-01-19 00:00:00 Completed [facility] HIB 4 Dose Schedule 2002-01-19 00:00:00 Completed [facility] MMR 2002-01-19 00:00:00 Completed [facility] Polio (IPV/OPV) 2002-01-19 00:00:00 Completed [facility] DTAP 2002-01-19 00:00:00 Completed [facility] HIB 4 Dose Schedule 2002-01-19 00:00:00 Completed [facility] MMR 2002-01-19 00:00:00 Completed [facility] Polio (IPV/OPV) 2002-01-19 00:00:00 Completed [facility] DTAP 2002-01-19 00:00:00 Completed [facility] HIB 4 Dose Schedule 2002-01-19 00:00:00 Completed [facility] MMR 2002-01-19 00:00:00 Completed [facility] Polio (IPV/OPV) 2002-01-19 00:00:00 Completed [facility] DTAP 2002-01-19 00:00:00 Completed [facility] HIB 4 Dose Schedule 2002-01-19 00:00:00 Completed [facility] MMR 2002-01-19 00:00:00 Completed [facility] Polio (IPV/OPV) 2002-01-19 00:00:00 Completed [facility] DTAP 2002-01-19 00:00:00 Completed [facility] HIB 4 Dose Schedule 2002-01-19 00:00:00 Completed [facility] MMR 2002-01-19 00:00:00 Completed [facility] Polio (IPV/OPV) 2002-01-19 00:00:00 Completed [facility] DTAP 2002-01-19 00:00:00 Completed [facility] HIB 4 Dose Schedule 2002-01-19 00:00:00 Completed [facility] MMR 2002-01-19 00:00:00 Completed [facility] Polio (IPV/OPV) 2002-01-19 00:00:00 Completed [facility] DTAP 2002-01-19 00:00:00 Completed [facility] HIB 4 Dose Schedule 2002-01-19 00:00:00 Completed [facility] MMR 2002-01-19 00:00:00 Completed [facility] Polio (IPV/OPV) 2002-01-19 00:00:00 Completed [facility] DTAP 2002-01-19 00:00:00 Completed [facility] HIB 4 Dose Schedule 2002-01-19 00:00:00 Completed [facility] MMR 2002-01-19 00:00:00 Completed [facility] Polio (IPV/OPV) 2002-01-19 00:00:00 Completed [facility] DTAP 2002-01-19 00:00:00 Completed [facility] HIB 4 Dose Schedule 2002-01-19 00:00:00 Completed [facility] MMR 2002-01-19 00:00:00 Completed [facility] Polio (IPV/OPV) 2002-01-19 00:00:00 Completed [facility] DTAP 2002-01-19 00:00:00 Completed [facility] HIB 4 Dose Schedule 2002-01-19 00:00:00 Completed [facility] MMR 2002-01-19 00:00:00 Completed [facility] Polio (IPV/OPV) 2002-01-19 00:00:00 Completed [facility] DTAP 2002-01-19 00:00:00 Completed [facility] HIB 4 Dose Schedule 2002-01-19 00:00:00 Completed [facility] MMR 2002-01-19 00:00:00 Completed [facility] DTAP 2002-01-19 00:00:00 Completed [facility] Polio (IPV/OPV) 2002-01-19 00:00:00 Completed [facility] DTAP 2002-01-19 00:00:00 Completed [facility] HIB 4 Dose Schedule 2002-01-19 00:00:00 Completed [facility] MMR 2002-01-19 00:00:00 Completed [facility] Polio (IPV/OPV) 2002-01-19 00:00:00 Completed [facility] HIB 4 Dose Schedule 2002-01-19 00:00:00 Completed [facility] DTAP 2002-01-19 00:00:00 Completed [facility] HIB 4 Dose Schedule 2002-01-19 00:00:00 Completed [facility] MMR 2002-01-19 00:00:00 Completed [facility] Polio (IPV/OPV) 2002-01-19 00:00:00 Completed [facility] DTAP 2002-01-19 00:00:00 Completed [facility] HIB 4 Dose Schedule 2002-01-19 00:00:00 Completed [facility] MMR 2002-01-19 00:00:00 Completed [facility] Polio (IPV/OPV) 2002-01-19 00:00:00 Completed [facility] DTAP 2002-01-19 00:00:00 Completed [facility] HIB 4 Dose Schedule 2002-01-19 00:00:00 Completed [facility] MMR 2002-01-19 00:00:00 Completed [facility] MMR 2002-01-19 00:00:00 Completed [facility] Polio (IPV/OPV) 2002-01-19 00:00:00 Completed [facility] DTAP 2001 00:00:00 Completed [facility] HIB 4 Dose Schedule 2001 00:00:00 Completed [facility] Polio (IPV/OPV) 2001 00:00:00 Completed [facility] Hep B, Adol or Pedi Dosage 2001 00:00:00 Completed [facility] Polio (IPV/OPV) 2001 00:00:00 Completed [facility] DTAP 2001 00:00:00 Completed [facility] HIB 4 Dose Schedule 2001 00:00:00 Completed [facility] Hep B, Adol or Pedi Dosage 2001 00:00:00 Completed [facility] Polio (IPV/OPV) 2001 00:00:00 Completed [facility] DTAP 2001 00:00:00 Completed [facility] HIB 4 Dose Schedule 2001 00:00:00 Completed [facility] Hep B, Adol or Pedi Dosage 2001 00:00:00 Completed [facility] Polio (IPV/OPV) 2001 00:00:00 Completed [facility] DTAP 2001 00:00:00 Completed [facility] HIB 4 Dose Schedule 2001 00:00:00 Completed [facility] Hep B, Adol or Pedi Dosage 2001 00:00:00 Completed [facility] Polio (IPV/OPV) 2001 00:00:00 Completed [facility] DTAP 2001 00:00:00 Completed [facility] HIB 4 Dose Schedule 2001 00:00:00 Completed [facility] Hep B, Adol or Pedi Dosage 2001 00:00:00 Completed [facility] Polio (IPV/OPV) 2001 00:00:00 Completed [facility] DTAP 2001 00:00:00 Completed [facility] HIB 4 Dose Schedule 2001 00:00:00 Completed [facility] Hep B, Adol or Pedi Dosage 2001 00:00:00 Completed [facility] Polio (IPV/OPV) 2001 00:00:00 Completed [facility] DTAP 2001 00:00:00 Completed [facility] DTAP 2001 00:00:00 Completed [facility] HIB 4 Dose Schedule 2001 00:00:00 Completed [facility] Hep B, Adol or Pedi Dosage 2001 00:00:00 Completed [facility] Polio (IPV/OPV) 2001 00:00:00 Completed [facility] DTAP 2001 00:00:00 Completed [facility] HIB 4 Dose Schedule 2001 00:00:00 Completed [facility] Hep B, Adol or Pedi Dosage 2001 00:00:00 Completed [facility] HIB 4 Dose Schedule 2001 00:00:00 Completed [facility] Polio (IPV/OPV) 2001 00:00:00 Completed [facility] DTAP 2001 00:00:00 Completed [facility] HIB 4 Dose Schedule 2001 00:00:00 Completed [facility] Hep B, Adol or Pedi Dosage 2001 00:00:00 Completed [facility] Polio (IPV/OPV) 2001 00:00:00 Completed [facility] DTAP 2001 00:00:00 Completed [facility] Hep B, Adol or Pedi Dosage 2001 00:00:00 Completed [facility] HIB 4 Dose Schedule 2001 00:00:00 Completed [facility] Hep B, Adol or Pedi Dosage 2001 00:00:00 Completed [facility] Polio (IPV/OPV) 2001 00:00:00 Completed [facility] DTAP 2001 00:00:00 Completed [facility] HIB 4 Dose Schedule 2001 00:00:00 Completed [facility] Hep B, Adol or Pedi Dosage 2001 00:00:00 Completed [facility] Polio (IPV/OPV) 2001 00:00:00 Completed [facility] Polio (IPV/OPV) 2001 00:00:00 Completed [facility] DTAP 2001 00:00:00 Completed [facility] HIB 4 Dose Schedule 2001 00:00:00 Completed [facility] Hep B, Adol or Pedi Dosage 2001 00:00:00 Completed [facility] Polio (IPV/OPV) 2001 00:00:00 Completed [facility] DTAP 2001 00:00:00 Completed [facility] HIB 4 Dose Schedule 2001 00:00:00 Completed [facility] Hep B, Adol or Pedi Dosage 2001 00:00:00 Completed [facility] Polio (IPV/OPV) 2001 00:00:00 Completed [facility] DTAP 2001 00:00:00 Completed [facility] HIB 4 Dose Schedule 2001 00:00:00 Completed [facility] Hep B, Adol or Pedi Dosage 2001 00:00:00 Completed [facility] Polio (IPV/OPV) 2001 00:00:00 Completed [facility] DTAP 2001 00:00:00 Completed [facility] HIB 4 Dose Schedule 2001 00:00:00 Completed [facility] Hep B, Adol or Pedi Dosage 2001 00:00:00 Completed [facility] Polio (IPV/OPV) 2001 00:00:00 Completed [facility] DTAP 2001 00:00:00 Completed [facility] DTAP 2001 00:00:00 Completed [facility] HIB 4 Dose Schedule 2001 00:00:00 Completed [facility] Hep B, Adol or Pedi Dosage 2001 00:00:00 Completed [facility] Polio (IPV/OPV) 2001 00:00:00 Completed [facility] HIB 4 Dose Schedule 2001 00:00:00 Completed [facility] DTAP 2001 00:00:00 Completed [facility] HIB 4 Dose Schedule 2001 00:00:00 Completed [facility] Hep B, Adol or Pedi Dosage 2001 00:00:00 Completed [facility] Polio (IPV/OPV) 2001 00:00:00 Completed [facility] DTAP 2001 00:00:00 Completed [facility] HIB 4 Dose Schedule 2001 00:00:00 Completed [facility] Hep B, Adol or Pedi Dosage 2001 00:00:00 Completed [facility] Polio (IPV/OPV) 2001 00:00:00 Completed [facility] Hep B, Adol or Pedi Dosage 2001 00:00:00 Completed [facility] DTAP 2001 00:00:00 Completed [facility] HIB 4 Dose Schedule 2001 00:00:00 Completed [facility] Hep B, Adol or Pedi Dosage 2001 00:00:00 Completed [facility] Polio (IPV/OPV) 2001 00:00:00 Completed [facility] DTAP 2001 00:00:00 Completed [facility] HIB 4 Dose Schedule 2001 00:00:00 Completed [facility] Hep B, Adol or Pedi Dosage 2001 00:00:00 Completed [facility] Polio (IPV/OPV) 2001 00:00:00 Completed [facility] Polio (IPV/OPV) 2001 00:00:00 Completed [facility] DTAP 2001 00:00:00 Completed [facility] HIB 4 Dose Schedule 2001 00:00:00 Completed [facility] Hep B, Adol or Pedi Dosage 2001 00:00:00 Completed [facility] Polio (IPV/OPV) 2001 00:00:00 Completed [facility] DTAP 2001 00:00:00 Completed [facility] HIB 4 Dose Schedule 2001 00:00:00 Completed [facility] Hep B, Adol or Pedi Dosage 2001 00:00:00 Completed [facility] Polio (IPV/OPV) 2001 00:00:00 Completed [facility] DTAP 2001 00:00:00 Completed [facility] HIB 4 Dose Schedule 2001 00:00:00 Completed [facility] Hep B, Adol or Pedi Dosage 2001 00:00:00 Completed [facility] Polio (IPV/OPV) 2001 00:00:00 Completed [facility] DTAP 2001 00:00:00 Completed [facility] HIB 4 Dose Schedule 2001 00:00:00 Completed [facility] Hep B, Adol or Pedi Dosage 2001 00:00:00 Completed [facility] Polio (IPV/OPV) 2001 00:00:00 Completed [facility] DTAP 2001 00:00:00 Completed [facility] DTAP 2001 00:00:00 Completed [facility] HIB 4 Dose Schedule 2001 00:00:00 Completed [facility] Hep B, Adol or Pedi Dosage 2001 00:00:00 Completed [facility] Polio (IPV/OPV) 2001 00:00:00 Completed [facility] DTAP 2001 00:00:00 Completed [facility] HIB 4 Dose Schedule 2001 00:00:00 Completed [facility] HIB 4 Dose Schedule 2001 00:00:00 Completed [facility] Hep B, Adol or Pedi Dosage 2001 00:00:00 Completed [facility] Polio (IPV/OPV) 2001 00:00:00 Completed [facility] Hep B, Adol or Pedi Dosage 2001 00:00:00 Completed [facility] Polio (IPV/OPV) 2001 00:00:00 Completed [facility] DTAP 2001 00:00:00 Completed [facility] HIB 4 Dose Schedule 2001 00:00:00 Completed [facility] Hep B, Adol or Pedi Dosage 2001 00:00:00 Completed [facility] Polio (IPV/OPV) 2001 00:00:00 Completed [facility] DTAP 2001 00:00:00 Completed [facility] HIB 4 Dose Schedule 2001 00:00:00 Completed [facility] Hep B, Adol or Pedi Dosage 2001 00:00:00 Completed [facility] Polio (IPV/OPV) 2001 00:00:00 Completed [facility] DTAP 2001 00:00:00 Completed [facility] HIB 4 Dose Schedule 2001 00:00:00 Completed [facility] Hep B, Adol or Pedi Dosage 2001 00:00:00 Completed [facility] Polio (IPV/OPV) 2001 00:00:00 Completed [facility] DTAP 2001 00:00:00 Completed [facility] HIB 4 Dose Schedule 2001 00:00:00 Completed [facility] Hep B, Adol or Pedi Dosage 2001 00:00:00 Completed [facility] Polio (IPV/OPV) 2001 00:00:00 Completed [facility] DTAP 2001 00:00:00 Completed [facility] HIB 4 Dose Schedule 2001 00:00:00 Completed [facility] Hep B, Adol or Pedi Dosage 2001 00:00:00 Completed [facility] Polio (IPV/OPV) 2001 00:00:00 Completed [facility] DTAP 2001 00:00:00 Completed [facility] HIB 4 Dose Schedule 2001 00:00:00 Completed [facility] Hep B, Adol or Pedi Dosage 2001 00:00:00 Completed [facility] Polio (IPV/OPV) 2001 00:00:00 Completed [facility] DTAP 2001 00:00:00 Completed [facility] HIB 4 Dose Schedule 2001 00:00:00 Completed [facility] Hep B, Adol or Pedi Dosage 2001 00:00:00 Completed [facility] Polio (IPV/OPV) 2001 00:00:00 Completed [facility] DTAP 2001 00:00:00 Completed [facility] HIB 4 Dose Schedule 2001 00:00:00 Completed [facility] Hep B, Adol or Pedi Dosage 2001 00:00:00 Completed [facility] Polio (IPV/OPV) 2001 00:00:00 Completed [facility] DTAP 2001 00:00:00 Completed [facility] HIB 4 Dose Schedule 2001 00:00:00 Completed [facility] Hep B, Adol or Pedi Dosage 2001 00:00:00 Completed [facility] Polio (IPV/OPV) 2001 00:00:00 Completed [facility] DTAP 2001 00:00:00 Completed [facility] HIB 4 Dose Schedule 2001 00:00:00 Completed [facility] Hep B, Adol or Pedi Dosage 2001 00:00:00 Completed [facility] Polio (IPV/OPV) 2001 00:00:00 Completed [facility] DTAP 2001 00:00:00 Completed [facility] HIB 4 Dose Schedule 2001 00:00:00 Completed [facility] Hep B, Adol or Pedi Dosage 2001 00:00:00 Completed [facility] Polio (IPV/OPV) 2001 00:00:00 Completed [facility] DTAP 2001 00:00:00 Completed [facility] HIB 4 Dose Schedule 2001 00:00:00 Completed [facility] Hep B, Adol or Pedi Dosage 2001 00:00:00 Completed [facility] Polio (IPV/OPV) 2001 00:00:00 Completed [facility] DTAP 2001 00:00:00 Completed [facility] HIB 4 Dose Schedule 2001 00:00:00 Completed [facility] Hep B, Adol or Pedi Dosage 2001 00:00:00 Completed [facility] Polio (IPV/OPV) 2001 00:00:00 Completed [facility] DTAP 2001 00:00:00 Completed [facility] HIB 4 Dose Schedule 2001 00:00:00 Completed [facility] Hep B, Adol or Pedi Dosage 2001 00:00:00 Completed [facility] Polio (IPV/OPV) 2001 00:00:00 Completed [facility] DTAP 2001 00:00:00 Completed [facility] HIB 4 Dose Schedule 2001 00:00:00 Completed [facility] Hep B, Adol or Pedi Dosage 2001 00:00:00 Completed [facility] Polio (IPV/OPV) 2001 00:00:00 Completed [facility] DTAP 2001 00:00:00 Completed [facility] HIB 4 Dose Schedule 2001 00:00:00 Completed [facility] DTAP 2001 00:00:00 Completed [facility] Hep B, Adol or Pedi Dosage 2001 00:00:00 Completed [facility] Polio (IPV/OPV) 2001 00:00:00 Completed [facility] DTAP 2001 00:00:00 Completed [facility] HIB 4 Dose Schedule 2001 00:00:00 Completed [facility] Hep B, Adol or Pedi Dosage 2001 00:00:00 Completed [facility] Polio (IPV/OPV) 2001 00:00:00 Completed [facility] HIB 4 Dose Schedule 2001 00:00:00 Completed [facility] DTAP 2001 00:00:00 Completed [facility] HIB 4 Dose Schedule 2001 00:00:00 Completed [facility] Hep B, Adol or Pedi Dosage 2001 00:00:00 Completed [facility] Polio (IPV/OPV) 2001 00:00:00 Completed [facility] DTAP 2001 00:00:00 Completed [facility] HIB 4 Dose Schedule 2001 00:00:00 Completed [facility] Hep B, Adol or Pedi Dosage 2001 00:00:00 Completed [facility] Hep B, Adol or Pedi Dosage 2001 00:00:00 Completed [facility] Polio (IPV/OPV) 2001 00:00:00 Completed [facility] DTAP 2001 00:00:00 Completed [facility] HIB 4 Dose Schedule 2001 00:00:00 Completed [facility] Hep B, Adol or Pedi Dosage 2001 00:00:00 Completed [facility] Polio (IPV/OPV) 2001 00:00:00 Completed [facility] DTAP 2001 00:00:00 Completed [facility] Polio (IPV/OPV) 2001 00:00:00 Completed [facility] HIB 4 Dose Schedule 2001 00:00:00 Completed [facility] Hep B, Adol or Pedi Dosage 2001 00:00:00 Completed [facility] Polio (IPV/OPV) 2001 00:00:00 Completed [facility] DTAP 2001 00:00:00 Completed [facility] HIB 4 Dose Schedule 2001 00:00:00 Completed [facility] Hep B, Adol or Pedi Dosage 2001 00:00:00 Completed [facility] Polio (IPV/OPV) 2001 00:00:00 Completed [facility] DTAP 2001 00:00:00 Completed [facility] HIB 4 Dose Schedule 2001 00:00:00 Completed [facility] Hep B, Adol or Pedi Dosage 2001 00:00:00 Completed [facility] Polio (IPV/OPV) 2001 00:00:00 Completed [facility] DTAP 2001 00:00:00 Completed [facility] HIB 4 Dose Schedule 2001 00:00:00 Completed [facility] Hep B, Adol or Pedi Dosage 2001 00:00:00 Completed [facility] Polio (IPV/OPV) 2001 00:00:00 Completed [facility] DTAP 2001 00:00:00 Completed [facility] HIB 4 Dose Schedule 2001 00:00:00 Completed [facility] Hep B, Adol or Pedi Dosage 2001 00:00:00 Completed [facility] Polio (IPV/OPV) 2001 00:00:00 Completed [facility] DTAP 2001 00:00:00 Completed [facility] HIB 4 Dose Schedule 2001 00:00:00 Completed [facility] Hep B, Adol or Pedi Dosage 2001 00:00:00 Completed [facility] Polio (IPV/OPV) 2001 00:00:00 Completed [facility] DTAP 2001 00:00:00 Completed [facility] DTAP 2001 00:00:00 Completed [facility] HIB 4 Dose Schedule 2001 00:00:00 Completed [facility] Hep B, Adol or Pedi Dosage 2001 00:00:00 Completed [facility] Polio (IPV/OPV) 2001 00:00:00 Completed [facility] DTAP 2001 00:00:00 Completed [facility] HIB 4 Dose Schedule 2001 00:00:00 Completed [facility] HIB 4 Dose Schedule 2001 00:00:00 Completed [facility] Hep B, Adol or Pedi Dosage 2001 00:00:00 Completed [facility] Polio (IPV/OPV) 2001 00:00:00 Completed [facility] DTAP 2001 00:00:00 Completed [facility] HIB 4 Dose Schedule 2001 00:00:00 Completed [facility] Hep B, Adol or Pedi Dosage 2001 00:00:00 Completed [facility] Polio (IPV/OPV) 2001 00:00:00 Completed [facility] Hep B, Adol or Pedi Dosage 2001 00:00:00 Completed [facility] DTAP 2001 00:00:00 Completed [facility] HIB 4 Dose Schedule 2001 00:00:00 Completed [facility] Hep B, Adol or Pedi Dosage 2001 00:00:00 Completed [facility] Polio (IPV/OPV) 2001 00:00:00 Completed [facility] DTAP 2001 00:00:00 Completed [facility] HIB 4 Dose Schedule 2001 00:00:00 Completed [facility] Hep B, Adol or Pedi Dosage 2001 00:00:00 Completed [facility] Polio (IPV/OPV) 2001 00:00:00 Completed [facility] Polio (IPV/OPV) 2001 00:00:00 Completed [facility] DTAP 2001 00:00:00 Completed [facility] HIB 4 Dose Schedule 2001 00:00:00 Completed [facility] Hep B, Adol or Pedi Dosage 2001 00:00:00 Completed [facility] Polio (IPV/OPV) 2001 00:00:00 Completed [facility] DTAP 2001 00:00:00 Completed [facility] HIB 4 Dose Schedule 2001 00:00:00 Completed [facility] Hep B, Adol or Pedi Dosage 2001 00:00:00 Completed [facility] Polio (IPV/OPV) 2001 00:00:00 Completed [facility] DTAP 2001 00:00:00 Completed [facility] HIB 4 Dose Schedule 2001 00:00:00 Completed [facility] Hep B, Adol or Pedi Dosage 2001 00:00:00 Completed [facility] Polio (IPV/OPV) 2001 00:00:00 Completed [facility] DTAP 2001 00:00:00 Completed [facility] HIB 4 Dose Schedule 2001 00:00:00 Completed [facility] Hep B, Adol or Pedi Dosage 2001 00:00:00 Completed [facility] Polio (IPV/OPV) 2001 00:00:00 Completed [facility] DTAP 2001 00:00:00 Completed [facility] DTAP 2001 00:00:00 Completed [facility] HIB 4 Dose Schedule 2001 00:00:00 Completed [facility] Hep B, Adol or Pedi Dosage 2001 00:00:00 Completed [facility] Polio (IPV/OPV) 2001 00:00:00 Completed [facility] HIB 4 Dose Schedule 2001 00:00:00 Completed [facility] DTAP 2001 00:00:00 Completed [facility] HIB 4 Dose Schedule 2001 00:00:00 Completed [facility] Hep B, Adol or Pedi Dosage 2001 00:00:00 Completed [facility] Polio (IPV/OPV) 2001 00:00:00 Completed [facility] DTAP 2001 00:00:00 Completed [facility] HIB 4 Dose Schedule 2001 00:00:00 Completed [facility] Hep B, Adol or Pedi Dosage 2001 00:00:00 Completed [facility] Polio (IPV/OPV) 2001 00:00:00 Completed [facility] Hep B, Adol or Pedi Dosage 2001 00:00:00 Completed [facility] DTAP 2001 00:00:00 Completed [facility] HIB 4 Dose Schedule 2001 00:00:00 Completed [facility] Hep B, Adol or Pedi Dosage 2001 00:00:00 Completed [facility] Polio (IPV/OPV) 2001 00:00:00 Completed [facility] DTAP 2001 00:00:00 Completed [facility] HIB 4 Dose Schedule 2001 00:00:00 Completed [facility] Polio (IPV/OPV) 2001 00:00:00 Completed [facility] Hep B, Adol or Pedi Dosage 2001 00:00:00 Completed [facility] Polio (IPV/OPV) 2001 00:00:00 Completed [facility] DTAP 2001 00:00:00 Completed [facility] HIB 4 Dose Schedule 2001 00:00:00 Completed [facility] Hep B, Adol or Pedi Dosage 2001 00:00:00 Completed [facility] Polio (IPV/OPV) 2001 00:00:00 Completed [facility] DTAP 2001 00:00:00 Completed [facility] HIB 4 Dose Schedule 2001 00:00:00 Completed [facility] Hep B, Adol or Pedi Dosage 2001 00:00:00 Completed [facility] Polio (IPV/OPV) 2001 00:00:00 Completed [facility] DTAP 2001 00:00:00 Completed [facility] HIB 4 Dose Schedule 2001 00:00:00 Completed [facility] Hep B, Adol or Pedi Dosage 2001 00:00:00 Completed [facility] Polio (IPV/OPV) 2001 00:00:00 Completed [facility] DTAP 2001 00:00:00 Completed [facility] HIB 4 Dose Schedule 2001 00:00:00 Completed [facility] Hep B, Adol or Pedi Dosage 2001 00:00:00 Completed [facility] Polio (IPV/OPV) 2001 00:00:00 Completed [facility] DTAP 2001 00:00:00 Completed [facility] DTAP 2001 00:00:00 Completed [facility] HIB 4 Dose Schedule 2001 00:00:00 Completed [facility] Hep B, Adol or Pedi Dosage 2001 00:00:00 Completed [facility] Polio (IPV/OPV) 2001 00:00:00 Completed [facility] HIB 4 Dose Schedule 2001 00:00:00 Completed [facility] DTAP 2001 00:00:00 Completed [facility] HIB 4 Dose Schedule 2001 00:00:00 Completed [facility] Hep B, Adol or Pedi Dosage 2001 00:00:00 Completed [facility] Polio (IPV/OPV) 2001 00:00:00 Completed [facility] Hep B, Adol or Pedi Dosage 2001 00:00:00 Completed [facility] Polio (IPV/OPV) 2001 00:00:00 Completed [facility] DTAP 2001 00:00:00 Completed [facility] HIB 4 Dose Schedule 2001 00:00:00 Completed [facility] Hep B, Adol or Pedi Dosage 2001 00:00:00 Completed [facility] Polio (IPV/OPV) 2001 00:00:00 Completed [facility] DTAP 2001 00:00:00 Completed [facility] HIB 4 Dose Schedule 2001 00:00:00 Completed [facility] Hep B, Adol or Pedi Dosage 2001 00:00:00 Completed [facility] Polio (IPV/OPV) 2001 00:00:00 Completed [facility] DTAP 2001 00:00:00 Completed [facility] HIB 4 Dose Schedule 2001 00:00:00 Completed [facility] Hep B, Adol or Pedi Dosage 2001 00:00:00 Completed [facility] Polio (IPV/OPV) 2001 00:00:00 Completed [facility] DTAP 2001 00:00:00 Completed [facility] HIB 4 Dose Schedule 2001 00:00:00 Completed [facility] Hep B, Adol or Pedi Dosage 2001 00:00:00 Completed [facility] Polio (IPV/OPV) 2001 00:00:00 Completed [facility] DTAP 2001 00:00:00 Completed [facility] HIB 4 Dose Schedule 2001 00:00:00 Completed [facility] Hep B, Adol or Pedi Dosage 2001 00:00:00 Completed [facility] Polio (IPV/OPV) 2001 00:00:00 Completed [facility] DTAP 2001 00:00:00 Completed [facility] HIB 4 Dose Schedule 2001 00:00:00 Completed [facility] Hep B, Adol or Pedi Dosage 2001 00:00:00 Completed [facility] Polio (IPV/OPV) 2001 00:00:00 Completed [facility] DTAP 2001 00:00:00 Completed [facility] HIB 4 Dose Schedule 2001 00:00:00 Completed [facility] Hep B, Adol or Pedi Dosage 2001 00:00:00 Completed [facility] Polio (IPV/OPV) 2001 00:00:00 Completed [facility] DTAP 2001 00:00:00 Completed [facility] HIB 4 Dose Schedule 2001 00:00:00 Completed [facility] Hep B, Adol or Pedi Dosage 2001 00:00:00 Completed [facility] Polio (IPV/OPV) 2001 00:00:00 Completed [facility] DTAP 2001 00:00:00 Completed [facility] HIB 4 Dose Schedule 2001 00:00:00 Completed [facility] Hep B, Adol or Pedi Dosage 2001 00:00:00 Completed [facility] Polio (IPV/OPV) 2001 00:00:00 Completed [facility] DTAP 2001 00:00:00 Completed [facility] HIB 4 Dose Schedule 2001 00:00:00 Completed [facility] Hep B, Adol or Pedi Dosage 2001 00:00:00 Completed [facility] Polio (IPV/OPV) 2001 00:00:00 Completed [facility] DTAP 2001 00:00:00 Completed [facility] HIB 4 Dose Schedule 2001 00:00:00 Completed [facility] Hep B, Adol or Pedi Dosage 2001 00:00:00 Completed [facility] Polio (IPV/OPV) 2001 00:00:00 Completed [facility] DTAP 2001 00:00:00 Completed [facility] HIB 4 Dose Schedule 2001 00:00:00 Completed [facility] Hep B, Adol or Pedi Dosage 2001 00:00:00 Completed [facility] Polio (IPV/OPV) 2001 00:00:00 Completed [facility] DTAP 2001 00:00:00 Completed [facility] HIB 4 Dose Schedule 2001 00:00:00 Completed [facility] Hep B, Adol or Pedi Dosage 2001 00:00:00 Completed [facility] Polio (IPV/OPV) 2001 00:00:00 Completed [facility] DTAP 2001 00:00:00 Completed [facility] HIB 4 Dose Schedule 2001 00:00:00 Completed [facility] Hep B, Adol or Pedi Dosage 2001 00:00:00 Completed [facility] Polio (IPV/OPV) 2001 00:00:00 Completed [facility] DTAP 2001 00:00:00 Completed [facility] HIB 4 Dose Schedule 2001 00:00:00 Completed [facility] Hep B, Adol or Pedi Dosage 2001 00:00:00 Completed [facility] Polio (IPV/OPV) 2001 00:00:00 Completed [facility] DTAP 2001 00:00:00 Completed [facility] DTAP 2001 00:00:00 Completed [facility] HIB 4 Dose Schedule 2001 00:00:00 Completed [facility] Hep B, Adol or Pedi Dosage 2001 00:00:00 Completed [facility] Polio (IPV/OPV) 2001 00:00:00 Completed [facility] DTAP 2001 00:00:00 Completed [facility] HIB 4 Dose Schedule 2001 00:00:00 Completed [facility] Hep B, Adol or Pedi Dosage 2001 00:00:00 Completed [facility] HIB 4 Dose Schedule 2001 00:00:00 Completed [facility] Polio (IPV/OPV) 2001 00:00:00 Completed [facility] DTAP 2001 00:00:00 Completed [facility] HIB 4 Dose Schedule 2001 00:00:00 Completed [facility] Hep B, Adol or Pedi Dosage 2001 00:00:00 Completed [facility] Polio (IPV/OPV) 2001 00:00:00 Completed [facility] DTAP 2001 00:00:00 Completed [facility] Hep B, Adol or Pedi Dosage 2001 00:00:00 Completed [facility] HIB 4 Dose Schedule 2001 00:00:00 Completed [facility] Hep B, Adol or Pedi Dosage 2001 00:00:00 Completed [facility] Polio (IPV/OPV) 2001 00:00:00 Completed [facility] DTAP 2001 00:00:00 Completed [facility] HIB 4 Dose Schedule 2001 00:00:00 Completed [facility] Hep B, Adol or Pedi Dosage 2001 00:00:00 Completed [facility] Polio (IPV/OPV) 2001 00:00:00 Completed [facility] Hep B, Adol or Pedi Dosage 2001 00:00:00 Completed [facility] Hep B, Adol or Pedi Dosage 2001 00:00:00 Completed [facility] Hep B, Adol or Pedi Dosage 2001 00:00:00 Completed [facility] Hep B, Adol or Pedi Dosage 2001 00:00:00 Completed [facility] Hep B, Adol or Pedi Dosage 2001 00:00:00 Completed [facility] Hep B, Adol or Pedi Dosage 2001 00:00:00 Completed [facility] Hep B, Adol or Pedi Dosage 2001 00:00:00 Completed [facility] Hep B, Adol or Pedi Dosage 2001 00:00:00 Completed [facility] Hep B, Adol or Pedi Dosage 2001 00:00:00 Completed [facility] Hep B, Adol or Pedi Dosage 2001 00:00:00 Completed [facility] Hep B, Adol or Pedi Dosage 2001 00:00:00 Completed [facility] Hep B, Adol or Pedi Dosage 2001 00:00:00 Completed [facility] Hep B, Adol or Pedi Dosage 2001 00:00:00 Completed [facility] Hep B, Adol or Pedi Dosage 2001 00:00:00 Completed [facility] Hep B, Adol or Pedi Dosage 2001 00:00:00 Completed [facility] Hep B, Adol or Pedi Dosage 2001 00:00:00 Completed [facility] Hep B, Adol or Pedi Dosage 2001 00:00:00 Completed [facility] Hep B, Adol or Pedi Dosage 2001 00:00:00 Completed [facility] Hep B, Adol or Pedi Dosage 2001 00:00:00 Completed [facility] Hep B, Adol or Pedi Dosage 2001 00:00:00 Completed [facility] Hep B, Adol or Pedi Dosage 2001 00:00:00 Completed [facility] Hep B, Adol or Pedi Dosage 2001 00:00:00 Completed [facility] Hep B, Adol or Pedi Dosage 2001 00:00:00 Completed [facility] Hep B, Adol or Pedi Dosage 2001 00:00:00 Completed [facility] Hep B, Adol or Pedi Dosage 2001 00:00:00 Completed [facility] Hep B, Adol or Pedi Dosage 2001 00:00:00 Completed [facility] Hep B, Adol or Pedi Dosage 2001 00:00:00 Completed [facility] Hep B, Adol or Pedi Dosage 2001 00:00:00 Completed [facility] Hep B, Adol or Pedi Dosage 2001 00:00:00 Completed [facility] Hep B, Adol or Pedi Dosage 2001 00:00:00 Completed [facility] Hep B, Adol or Pedi Dosage 2001 00:00:00 Completed [facility] Hep B, Adol or Pedi Dosage 2001 00:00:00 Completed [facility] Hep B, Adol or Pedi Dosage 2001 00:00:00 Completed [facility] Hep B, Adol or Pedi Dosage 2001 00:00:00 Completed [facility] Hep B, Adol or Pedi Dosage 2001 00:00:00 Completed [facility] Hep B, Adol or Pedi Dosage 2001 00:00:00 Completed [facility] Hep B, Adol or Pedi Dosage 2001 00:00:00 Completed [facility] Hep B, Adol or Pedi Dosage 2001 00:00:00 Completed [facility] Hep B, Adol or Pedi Dosage 2001 00:00:00 Completed [facility] Hep B, Adol or Pedi Dosage 2001 00:00:00 Completed [facility] Hep B, Adol or Pedi Dosage 2001 00:00:00 Completed [facility] Hep B, Adol or Pedi Dosage 2001 00:00:00 Completed [facility] Hep B, Adol or Pedi Dosage 2001 00:00:00 Completed [facility] Hep B, Adol or Pedi Dosage 2001 00:00:00 Completed [facility] Hep B, Adol or Pedi Dosage 2001 00:00:00 Completed [facility] Hep B, Adol or Pedi Dosage 2001 00:00:00 Completed [facility] Hep B, Adol or Pedi Dosage 2001 00:00:00 Completed [facility] Hep B, Adol or Pedi Dosage 2001 00:00:00 Completed [facility] Hep B, Adol or Pedi Dosage 2001 00:00:00 Completed [facility] Hep B, Adol or Pedi Dosage 2001 00:00:00 Completed [facility] DTAP Unknown Completed [facility] DTAP Unknown Completed [facility] DTAP Unknown Completed [facility] DTAP Unknown Completed [facility] DTAP Unknown Completed [facility] HIB 4 Dose Schedule Unknown Completed [facility] HIB 4 Dose Schedule Unknown Completed [facility] HIB 4 Dose Schedule Unknown Completed [facility] HIB 4 Dose Schedule Unknown Completed [facility] HEPATITIS A Unknown Completed [facility] HEPATITIS A Unknown Completed [facility] Hep B, Adol or Pedi Dosage Unknown Completed [facility] Hep B, Adol or Pedi Dosage Unknown Completed [facility] Hep B, Adol or Pedi Dosage Unknown Completed [facility] HPV Unknown Completed [facility] Influenza Virus Vaccine Unknown Completed [facility] Influenza Virus Vaccine Unknown Completed [facility] MMR Unknown Completed [facility] MMR Unknown Completed [facility] Polio (IPV/OPV) Unknown Completed [facility] Polio (IPV/OPV) Unknown Completed [facility] Polio (IPV/OPV) Unknown Completed [facility] Polio (IPV/OPV) Unknown Completed [facility] Varicella (varivax)(chicken pox) Unknown Completed [facility] Varicella (varivax)(chicken pox) Unknown Completed [facility] Pneumococcal 7 Conjugate, PCV7 (Prevnar7) Unknown Completed [facility] HPV9 Unknown Completed [facility] Meningococcal Polysaccharide (groups A, C, Y and W-135) conjugate vaccine (MCV4P) Unknown Completed [facility] TDAP Unknown Completed [facility] Meningococcal Polysaccharide (groups A, C, Y and W-135) conjugate vaccine (MCV4P) Unknown Completed [facility] Influenza Virus Vaccine Quad IM 3+ YRS Unknown Completed [facility] Meningococcal B, OMV Unknown Completed [facility] Meningococcal B, OMV Unknown Completed [facility] Vital Signs Vital Name Observation Time Observation Value Comments To rodriguez Systolic blood pressure 2023-02-25 21:10:00 118 mm[Hg] [facility] Diastolic blood pressure 2023-02-25 21:10:00 76 mm[Hg] [facility] Heart rate 2023-02-25 21:10:00 78 /min [facility] Body temperature 2023-02-25 21:10:00 36.67 Lilo [facility] Respiratory rate 2023-02-25 21:10:00 15 /min [facility] Oxygen saturation in Arterial blood by Pulse oximetry 2023-02-25 21:10:00 99 /min [facility] Body height 2023-02-25 19:24:[address] [facility] Body weight 2023-02-25 19:24:[address] [facility] BMI 2023-02-25 19:24:00 44.02 kg/m2 [facility] Systolic blood pressure 2020-08-20 14:45:00 119 mm[Hg] [facility] Diastolic blood pressure 2020-08-20 14:45:00 75 mm[Hg] [facility] Heart rate 2020-08-20 14:45:00 80 /min [facility] Body temperature 2020-08-20 14:45:00 36.78 Lilo [facility] Body height 2020-08-20 14:45:[address] [facility] Body weight 2020-08-20 14:45:[address] [facility] BMI 2020-08-20 14:45:00 41.63 kg/m2 [facility] Oxygen saturation in Arterial blood by Pulse oximetry 2020-08-20 14:45:00 99 /min [facility] height 2020-08-12 10:30:00 69 [in_i] [facility] weight 2020-08-12 10:30:00 287 [lb_av] Comm on [facility] bmi 2020-08-12 10:30:00 42.38 kg/m2 Comm on [facility] blood pressure systolic 2020-08-12 10:30:00 118 mm[Hg] [facility] blood pressure diastolic 2020-08-12 10:30:00 78 mm[Hg] [facility] Systolic blood pressure 2020-07-09 15:47:00 123 mm[Hg] [facility] Diastolic blood pressure 2020-07-09 15:47:00 80 mm[Hg] [facility] Heart rate 2020-07-09 15:47:00 92 /min [facility] Body temperature 2020-07-09 15:47:00 37 Lilo [facility] Respiratory rate 2020-07-09 15:47:00 18 /min [facility] Body height 2020-07-09 15:47:[address] [facility] Body weight 2020-07-09 15:47:[address] [facility] BMI 2020-07-09 15:47:00 41.64 kg/m2 [facility] Oxygen saturation in Arterial blood by Pulse oximetry 2020-07-09 15:47:00 98 /min [facility] Systolic blood pressure 2020-06-25 16:42:00 120 mm[Hg] [facility] Diastolic blood pressure 2020-06-25 16:42:00 77 mm[Hg] [facility] Heart rate 2020-06-25 16:42:00 72 /min [facility] Body temperature 2020-06-25 16:42:00 37 Lilo [facility] Respiratory rate 2020-06-25 16:42:00 18 /min [facility] Body height 2020-06-25 16:42:[address] [facility] Body weight 2020-06-25 16:42:[address] [facility] BMI 2020-06-25 16:42:00 40.46 kg/m2 [facility] Oxygen saturation in Arterial blood by Pulse oximetry 2020-06-25 16:42:00 100 /min [facility] Systolic blood pressure 2020-06-17 12:15:00 138 mm[Hg] [facility] Diastolic blood pressure 2020-06-17 12:15:00 83 mm[Hg] [facility] Heart rate 2020-06-17 12:15:00 64 /min [facility] Body temperature 2020-06-17 12:15:00 36.44 Lilo [facility] Respiratory rate 2020-06-17 12:15:00 18 /min [facility] Body height 2020-06-17 12:15:[address] [facility] Body weight 2020-06-17 12:15:[address] [facility] BMI 2020-06-17 12:15:00 40.18 kg/m2 [facility] Oxygen saturation in Arterial blood by Pulse oximetry 2020-06-17 12:15:00 99 /min [facility] height 2020-06-10 10:30:00 69 [in_i] Commo n [facility] weight 2020-06-10 10:30:00 287 [lb_av] Comm on [facility] temperature 2020-06-10 10:30:00 97.3 [degF] Com mon [facility] bmi 2020-06-10 10:30:00 42.38 kg/m2 Comm on [facility] blood pressure systolic 2020-06-10 10:30:00 120 mm[Hg] [facility] blood pressure diastolic 2020-06-10 10:30:00 74 mm[Hg] [facility] Systolic blood pressure 2020-05-14 17:54:00 115 mm[Hg] [facility] Diastolic blood pressure 2020-05-14 17:54:00 67 mm[Hg] [facility] Heart rate 2020-05-14 17:54:00 77 /min [facility] Body temperature 2020-05-14 17:54:00 36.67 Lilo [facility] Respiratory rate 2020-05-14 17:54:00 18 /min [facility] Body height 2020-05-14 17:54:[address] [facility] Body weight 2020-05-14 17:54:00 128.323 kg [facility] BMI 2020-05-14 17:54:00 40.59 kg/m2 [facility] Oxygen saturation in Arterial blood by Pulse oximetry 2020-05-14 17:54:00 100 /min [facility] Systolic blood pressure 2020-05-14 17:54:00 115 mm[Hg] [facility] Diastolic blood pressure 2020-05-14 17:54:00 67 mm[Hg] [facility] Heart rate 2020-05-14 17:54:00 77 /min [facility] Body temperature 2020-05-14 17:54:00 36.67 Lilo [facility] Respiratory rate 2020-05-14 17:54:00 18 /min [facility] Body height 2020-05-14 17:54:[address] [facility] Body weight 2020-05-14 17:54:[address] [facility] BMI 2020-05-14 17:54:00 40.59 kg/m2 [facility] Oxygen saturation in Arterial blood by Pulse oximetry 2020-05-14 17:54:00 100 /min [facility] weight 2020-04-21 14:00:00 279 [lb_av] Comm on [facility] temperature 2020-04-21 14:00:00 97.7 [degF] Com mon [facility] bmi 2020-04-21 14:00:00 41.2 kg/m2 [facility] blood pressure systolic 2020-04-21 14:00:00 122 mm[Hg] [facility] blood pressure diastolic 2020-04-21 14:00:00 80 mm[Hg] [facility] height 2020-04-21 14:00:00 69 [in_i] Commo n [facility] height 2020-03-20 11:15:00 69 [in_i] Commo n [facility] weight 2020-03-20 11:15:00 279 [lb_av] Comm on [facility] bmi 2020-03-20 11:15:00 41.2 kg/m2 Commo n [facility] blood pressure systolic 2020-03-20 11:15:00 147 mm[Hg] [facility] blood pressure diastolic 2020-03-20 11:15:00 89 mm[Hg] [facility] height 2020-03-11 15:30:00 69 [in_i] Commo n [facility] weight 2020-03-11 15:30:00 279 [lb_av] Comm on [facility] temperature 2020-03-11 15:30:00 97.1 [degF] Com mon [facility] bmi 2020-03-11 15:30:00 41.20 kg/m2 Comm on [facility] blood pressure systolic 2020-03-11 15:30:00 133 mm[Hg] [facility] blood pressure diastolic 2020-03-11 15:30:00 84 mm[Hg] [facility] height 2020-02-28 10:00:00 69 [in_i] Commo n [facility] weight 2020-02-28 10:00:00 179 [lb_av] Comm on [facility] temperature 2020-02-28 10:00:00 97.3 [degF] Com mon [facility] bmi 2020-02-28 10:00:00 26.43 kg/m2 Comm on [facility] blood pressure systolic 2020-02-28 10:00:00 124 mm[Hg] [facility] blood pressure diastolic 2020-02-28 10:00:00 84 mm[Hg] [facility] height 2020-02-12 10:30:00 69 [in_i] Commo n [facility] weight 2020-02-12 10:30:00 179 [lb_av] Comm on [facility] temperature 2020-02-12 10:30:00 97.1 [degF] Com mon [facility] bmi 2020-02-12 10:30:00 26.43 kg/m2 Comm on [facility] blood pressure systolic 2020-02-12 10:30:00 124 mm[Hg] [facility] blood pressure diastolic 2020-02-12 10:30:00 82 mm[Hg] [facility] height 2020-01-29 11:00:00 69 [in_i] Commo n [facility] weight 2020-01-29 11:00:00 179 [lb_av] Comm on [facility] bmi 2020-01-29 11:00:00 26.43 kg/m2 Comm on [facility] blood pressure systolic 2020-01-29 11:00:00 118 mm[Hg] [facility] blood pressure diastolic 2020-01-29 11:00:00 82 mm[Hg] [facility] height 2020-01-22 13:00:00 69 [in_i] Commo n [facility] weight 2020-01-22 13:00:00 179 [lb_av] Comm on [facility] bmi 2020-01-22 13:00:00 26.43 kg/m2 Comm on [facility] blood pressure systolic 2020-01-22 13:00:00 120 mm[Hg] [facility] blood pressure diastolic 2020-01-22 13:00:00 80 mm[Hg] [facility] Systolic blood pressure 2020-01-20 19:46:00 140 mm[Hg] [facility] Diastolic blood pressure 2020-01-20 19:46:00 79 mm[Hg] [facility] Heart rate 2020-01-20 19:46:00 99 /min [facility] Body temperature 2020-01-20 19:46:00 37.44 Lilo [facility] Respiratory rate 2020-01-20 19:46:00 18 /min [facility] Body weight 2020-01-20 19:46:00 126.554 kg [facility] Oxygen saturation in Arterial blood by Pulse oximetry 2020-01-20 19:46:00 97 /min [facility] Systolic blood pressure 2020-01-02 14:09:00 120 mm[Hg] [facility] Diastolic blood pressure 2020-01-02 14:09:00 83 mm[Hg] [facility] Heart rate 2020-01-02 14:09:00 79 /min [facility] Body temperature 2020-01-02 14:09:00 36.67 [facility] Respiratory rate 2020-01-02 14:09:00 18 /min [facility] Body height 2020-01-02 14:09:00 175.3 cm [facility] Body weight 2020-01-02 14:09:[address] [facility] BMI 2020-01-02 14:09:00 41.20 kg/m2 [facility] Oxygen saturation in Arterial blood by Pulse oximetry 2020-01-02 14:09:00 100 /min [facility] Systolic blood pressure 2019-11-23 15:43:00 132 mm[Hg] [facility] Diastolic blood pressure 2019-11-23 15:43:00 80 mm[Hg] [facility] Heart rate 2019-11-23 15:43:00 87 /min [facility] Body temperature 2019-11-23 15:43:00 37.22 Lilo [facility] Respiratory rate 2019-11-23 15:43:00 20 /min [facility] Body height 2019-11-23 15:43:00 172.5 cm [facility] Body weight 2019-11-23 15:43:[address] [facility] BMI 2019-11-23 15:43:00 42.59 kg/m2 [facility] Body height 2019-08-17 16:00:[address] [facility] Body weight 2019-08-17 16:00:[address] [facility] BMI 2019-08-17 16:00:00 35.87 kg/m2 [facility] Procedures Procedure Date / Time Performed Performing Clinician Source ASSIGNMENT OF BENEFITS 2023-02-25 21:01:36 Docto r Unassigned, Landen [facility] RAPID RSV 2023-02-25 19:39:00 Kelly Glass [facility] NOTICE OF PRIVACY PRACTICES 2023-02-25 19:00:09 Doctor Unassigned, Landen [facility] CONSENT/REFUSAL FOR DIAGNOSIS AND TREATMENT 2023-02-25 18:58:36 Doctor Unassigned, Landen [facility] POCT TEST 2020-06-17 11:30:00 Maria R He [facility] ASSIGNMENT OF BENEFITS 2020-06-17 10:54:43 Docto r Unassigned, Landen [facility] DISCLOSURE AND CONSENT, MEDICAL AND SURGICAL PROCEDURES 2020-05-14 06:01:00 Doctor Unassigned, Landen [facility] XR KNEE 3 VW RIGHT 2020-01-20 20:20:03 Leyda Juares [facility] CONSENT/REFUSAL FOR DIAGNOSIS AND TREATMENT 2020-01-20 19:36:17 Doctor Unassigned, Landen [facility] DISCLOSURE AND CONSENT, MEDICAL AND SURGICAL PROCEDURES 2020-01-02 05:01:00 Doctor Unassigned, Landen [facility] MENINGOCOCCAL B VACCINE, OMV, 2 DOSE, IM 2019-11-23 15:55:20 Izzy Villanueva [facility] NOTICE OF PRIVACY PRACTICES 2019-11-23 15:23:48 Doctor Unassigned, Landen [facility] Encounters Start Date/Time End Date/Time Encounter Type Admission Type Attending [facility] Care Facility Care Department Encounter ID Source 2021-05-13 11:52:27 Outpatient [facility] [id number] [facility] 2021-02-15 01:09:16 Outpatient ELVIE FAN [facility] [id number] [facility] 2021-02-13 20:55:59 Emergency [facility] [id number] [facility] 2023-02-25 13:25:00 2023-02-25 15:18:00 Emergency X KELLY GLASS [facility] ERT [id number] [facility] 2023-02-25 13:25:00 2023-02-25 15:18:00 Emergency Schoelos , Kelly [facility] [id number] [facility] 2022-11-01 15:30:42 2022-11-01 15:30:42 Outpatient [facility] [id number] Alejandro Ferris Baldev 2020-08-20 09:39:34 2020-08-20 10:17:52 Office Visit Elvie Fan [facility] [id number] [facility] 2020-08-20 09:45:00 2020-08-20 09:45:00 Outpatient ELVIE DOOLEY [facility] [id number] [facility] 2020-08-12 00:00:00 2020-08-12 00:00:00 OFFICE VISIT EST PT LEVEL [address] [facility] [id number] [facility] 2020-07-23 10:45:00 2020-07-23 10:45:00 Outpatient ELVIE DOOLEY [facility] [id number] [facility] 2020-07-16 09:45:00 2020-07-16 09:45:00 Outpatient ELVIE DOOLEY [facility] [id number] [facility] 2020-07-16 07:55:20 2020-07-16 08:10:20 Telemedici ne Visit Elvie Fan [facility] [id number] [facility] 2020-07-09 10:42:26 2020-07-09 11:51:21 Office Visit Elvie Fan [facility] [id number] [facility] 2020-07-09 10:45:00 2020-07-09 10:45:00 Outpatient R ELVIE FAN [facility] [id number] [facility] 2020-06-25 10:31:50 2020-06-25 11:20:56 Office Visit Elvie Fan [facility] [id number] [facility] 2020-06-25 10:45:00 2020-06-25 10:45:00 Outpatient R ELVIE FAN [facility] [id number] [facility] 2020-06-20 13:00:00 2020-06-20 13:00:00 Outpatient R DANIS ZHONG [facility] [id number] [facility] 2020-06-17 04:54:00 2020-06-17 12:53:00 Hospital Encounter Elvie Fan [facility] ([facility]) 1.2840.114 350.1.13.10 4.2.7.2.686 [id number] [facility] 2020-06-17 00:00:00 2020-06-17 00:00:00 Orders Only Doctor Unassigned, Landen [facility] 1.2.840.114 350.1.13.10 4.2.7.2.686 [id number] [facility] 2020-06-17 00:00:00 2020-06-17 00:00:00 Telephone Elvie Fan [facility] 1.2.840.114 350.1.13.10 4.2.7.2.686 [id number] [facility] 2020-06-16 00:00:00 2020-06-16 00:00:00 Nurse Triage Randi Manrique [facility] 1.2.840.114 350.1.13.10 4.2.7.2.686 [id number] [facility] 2020-06-13 09:42:52 2020-06-13 09:57:52 Laboratory Only Only, Adc Test Dhiraj June [facility] 1.2.840.114 350.1.13.10 4.2.7.2.686 [id number] [facility] 2020-06-13 09:45:00 2020-06-13 09:45:00 Outpatient DHIRAJ DICKENS [facility] [id number] [facility] 2020-06-11 09:15:00 2020-06-11 09:15:00 Outpatient R ELVIE FAN [facility] [id number] [facility] 2020-06-11 07:53:33 2020-06-11 08:08:33 Telemedici ne Visit Elvie Fan [facility] 1.2.840.114 350.1.13.10 4.2.7.2.686 [id number] 201 [id number] [facility] 2020-06-10 00:00:00 2020-06-10 00:00:00 OFFICE VISIT EST PT LEVEL 3 STLMLC STLMLC [id number] [facility] 2020-05-14 11:37:54 2020-05-14 11:37:54 Office Visit Elvie Fan [facility] 1.2.840.114 350.1.13.10 4.2.7.2.686 [id number] 201 [id number] 2020-05-14 11:37:54 2020-05-14 11:37:54 Office Visit Elvie Fan [facility] 1.2.840.114 350.1.13.10 4.2.7.2.686 [id number] [facility] 2020-05-14 11:30:00 2020-05-14 11:30:00 Outpatient R ELVIE FAN [facility] [id number] [facility] 2020-05-14 00:00:00 2020-05-14 00:00:00 Orders Only Doctor Unassigned, Landen [place] [id number] 350.1.13.10 4.2.7.2.686 [id number] 2020-05-14 00:00:00 2020-05-14 00:00:00 Orders Only Doctor Unassigned, Landen [facility] 1.2.840.114 350.1.13.10 4.2.7.2.686 [id number] [facility] 2020-04-21 00:00:00 2020-04-21 00:00:00 NON-BILLAB LE VISIT STLMLC STLM [id number] [facility] 2020-04-02 00:00:00 2020-04-02 00:00:00 Prep For Surgery Elvie Fan [facility] 1.2.840.114 350.1.13.10 4.2.7.2.686 [id number] 201 [id number] [facility] 2020-03-26 09:00:00 2020-03-26 09:00:00 Outpatient ELVIE DOOLEY [facility] [id number] [facility] 2020-03-26 08:01:41 2020-03-26 08:16:41 Telemedici ne Visit Elvie Fan [facility] 1.2.840.114 350.1.13.10 4.2.7.2.686 [id number] [facility] 2020-03-20 00:00:00 2020-03-20 00:00:00 NON-BILLAB LE VISIT STLMLC STLMLC [id number] [facility] 2020-03-11 00:00:00 2020-03-11 00:00:00 NON-BILLAB LE VISIT STLMLC STLMLC [id number] [facility] 2020-02-28 00:00:00 2020-02-28 00:00:00 OFFICE VISIT EST PT LEVEL 3 STLMLC STLMLC [id number] [facility] 2020-02-18 00:00:00 2020-02-18 00:00:00 (TEL) STLMLC STLMLC [id number] [facility] 2020-02-12 00:00:00 2020-02-12 00:00:00 OFFICE VISIT ESTAB PT LEVEL 4 STLMLC STLMLC [id number] [facility] 2020-01-30 09:45:00 2020-01-30 09:45:00 Outpatient ELVIE DOOLEY [facility] [id number] [facility] 2020-01-30 00:00:00 2020-01-30 00:00:00 Telephone Jocelin Davis [facility] .2.840.114 350.1.13.10 4.2.7.2.686 [id number] [facility] 2020-01-29 00:00:00 2020-01-29 00:00:00 OFFICE VISIT ESTAB PT LEVEL 4 STLMLC STLMLC [id number] [facility] 2020-01-25 14:40:00 2020-01-25 14:40:00 Outpatient ELVIE DOOLEY [facility] [id number] [facility] 2020-01-23 07:42:59 2020-01-23 20:30:59 Telemedici ne Visit Elvie Fan [facility] 1.0.114 350.1.13.10 4.2.7.2.686 [id number] [facility] 2020-01-23 09:15:00 2020-01-23 09:15:00 Outpatient R ELVIE FAN [facility] [id number] [facility] 2020-01-23 00:00:00 2020-01-23 00:00:00 (TEL) STLMLC STLMLC [id number] [facility] 2020-01-22 00:00:00 2020-01-22 00:00:00 OFFICE VISIT NEW PT LEVEL 4 STLMLC STLMLC [id number] [facility] 2020-01-20 14:48:00 2020-01-20 16:37:00 Emergency Leyda Juares [facility] 1.0.114 350.1.13.10 4.2.7.2.686 [id number] [facility] 2020 00:00:00 2020 00:00:00 Telephone Elvie Fan [facility] 1.2840.114 350.1.13.10 4.2.7.2.686 [id number] [facility] 2020-01-16 00:00:00 2020-01-16 00:00:00 Telephone Izzy Villanueva [facility] 1.2840.114 350.1.13.10 4.2.7.2.686 [id number] [facility] 2020-01-02 09:01:49 2020-01-02 17:14:00 Office Visit Elvie Fan [facility] 1.2840.114 350.1.13.10 4.2.7.2.686 [id number] [facility] 2020-01-02 09:15:00 2020-01-02 09:15:00 Outpatient ELVIE DOOLEY [facility] [id number] [facility] 2020-01-02 00:00:00 2020-01-02 00:00:00 Orders Only Doctor Unassigned, Landen [facility] 1.114 350.1.13.10 4.2.7.2.686 [id number] [facility] 2019-12-05 10:00:00 2019-12-05 10:00:00 Outpatient ELVIE DOOLEY [facility] [id number] [facility] 2019-11-23 13:00:00 2019-11-23 13:00:00 Outpatient ELVIE DOOLEY [facility] [id number] [facility] 2019-11-23 11:20:22 2019-11-23 11:35:22 Billing Encounter Izzy Villanueva [facility] 1..114 350.1.13.10 4.2.7.2.686 [id number] [facility] 2019-11-23 10:31:41 2019-11-23 11:21:56 Office Visit Izzy Villanueva [facility] 1..114 350.1.13.10 4.2.7.2.686 [id number] [facility] 2019-11-23 10:45:00 2019-11-23 10:45:00 Outpatient R IZZY VILLANUEVA [facility] [id number] [facility] 2019-11-23 00:00:00 2019-11-23 00:00:00 Orders Only Doctor Unassigned, Landen [facility] 1.114 350.1.13.10 4.2.7.2.686 [id number] [facility] 2019-08-17 08:10:51 2019-08-17 16:47:26 Telemedici ne Visit Elvie Fan [facility] 1.2.840.114 350.1.13.10 4.2.7.2.686 [id number] [facility] 2019-08-17 13:15:00 2019-08-17 13:15:00 Outpatient R ELVIE FAN [facility] [id number] [facility] 2019-08-15 10:00:00 2019-08-15 10:00:00 Outpatient ELVIE DOOLEY [facility] [id number] [facility] 2019-07-24 09:00:00 2019-07-24 09:00:00 Outpatient R SAMIA BAE [facility] [id number] [facility] 2019-07-20 09:10:58 2019-07-20 09:25:58 Telemedici ne Visit Adalberto Herbert [facility] MAT[facility]NAL & CHILD [facility] 1.0.114 350.1.13.10 4.2.7.2.686 [id number] [facility] 2019-07-20 09:00:00 2019-07-20 09:00:00 Outpatient R ADALBERTO HERBERT [facility] [id number] [facility] 2019-07-20 00:00:00 2019-07-20 00:00:00 Telephone Samia Bae [facility] 1.840.114 350.1.13.10 4.2.7.2.686 [id number] [facility] 2019-07-17 00:00:00 2019-07-17 00:00:00 Telephone Alison Torres [facility] MAT[facility] & [facility]ILD [facility] 1.2840.114 350.1.13.10 4.2.7.2.686 [id number] [facility] Results Test Description Test Time Test Comments Results Result Co mments Source TSH, THIRD [id number] 06:49:21* Test Item Value Reference Range Interpretation Comme nts TSH, THIRD GENERATION (test code = 2821) 5.040 UIU/ML 0.400-4.100 H VITAMIN [id number] 04:58:30* Test Item Value Reference Range Interpretation Comme nts VITAMIN B-12 (test code = 2840) 231 PG/ML 200-950 UNLESS OTHERWISE INDICATED, ALL TESTING PERFORMED AT [facility] [address] [place] [address] DATA PROCESSING MANAGER: BE MANDEL M.D. CLIA NUMBER [id number] [facility] [place]. [id number] COMPREHENSIVE METABOLIC [id number] 03:40:07* Test Item Value Reference Range Interpretation Comme nts GLUCOSE (test code = 2217) 102 MG/DL 70-99 H BUN (test code = 2208) 11 MG/DL 6-20 CREATININE (test code = 2214) 0.87 MG/DL 0.60-1.30 eGFR (2020 CKD-EPI) (test code = 54980) 97 ML/MIN/1.73 >60 CALC BUN/CREAT (test code = 2235) 13 RATIO 6-28 SODIUM (test code = 2231) 141 MEQ/L 133-146 POTASSIUM (test code = 2228) 4.4 MEQ/L 3.5-5.4 CHLORIDE (test code = 2215) 104 MEQ/L 95-107 CARBON DIOXIDE (test code = 2206) 25 MEQ/L 19-31 CALCIUM (test code = 2209) 10.0 MG/DL 8.5-10.5 PROTEIN, TOTAL (test code = 2229) 7.0 G/DL 6.1-8.3 ALBUMIN (test code = 2201) 4.7 G/DL 3.5-5.2 CALC GLOBULIN (test code = 2240) 2.3 G/DL 1.9-3.7 CALC A/G RATIO (test code = 2234) 2.0 RATIO 1.0-2.6 BILIRUBIN, TOTAL (test code = 2207) 0.4 MG/DL See_Comment [Automated me ssage] The system which generated this result transmitted reference range: <=1.2. The reference range was not used to interpret this result as normal/abnormal. ALKALINE PHOSPHATASE (test code = 2204) 75 U/L 39-117 AST (test code = 2218) 17 U/L 9-40 ALT (test code = 2219) 13 U/L 5-40 LIPID [id number] 03:40:07* Test Item Value Reference Range Interpretation Comme nts CHOLESTEROL (test code = 2210) 175 MG/DL <200 TRIGLYCERIDES (test code = 2232) 83 MG/DL <150 HDL CHOLESTEROL (test code = 2220) 46 MG/DL >39 CALC LDL CHOL (test code = 2237) 112 MG/DL <100 H NOTE: CALCULATED LDL IS BASED ON JEWEL-CHAVEZ METHOD WHICHINCLUDES ADJUSTABLE TRIGLYCERIDE:VLDL CHOLESTEROL RATIO.THIS FACTOR VARIES BY MEASURED TRIGLYCERIDE AND NON-HDLCHOLESTEROL CONCENTRATIONS WITH INCREASED CALCULATED LDL SEENIN HIGHER TRIGLYCERIDE OR LOWER NON-HDL SPECIMENS. FOR MOREINFORMATION, SEE CLIENT ANNOUNCEMENT AT [email or web address] RISK RATIO LDL/HDL (test code = 2238) 2.43 RATIO <3.22 HEMOGLOBIN [id number] 02:34:49* Test Item Value Reference Range Interpretation Comme nts HEMOGLOBIN A1c (test code = 93983) 5.5 % 4.2-5.6 CBC W/AUTO DIFF WITH [id number] 01:53:27* Test Item Value Reference Range Interpretation Comme nts WBC (test code = 1001) 11.8 K/UL 3.5-11.0 H RBC (test code = 1002) 4.17 M/UL 3.80-5.40 HEMOGLOBIN (test code = 1003) 12.7 G/DL 11.5-15.5 HEMATOCRIT (test code = 1004) 37.9 % 34.0-45.0 MCV (test code = 1005) 90.9 fL 80.0-99.0 MCH (test code = 1006) 30.5 PG 25.0-33.0 MCHC (test code = 1007) 33.5 G/DL 31.0-36.0 RDW (test code = 1038) 11.9 % 11.5-15.0 NEUTROPHILS (test code = 1008) 69.7 % LYMPHOCYTES (test code = 1010) 24.0 % MONOCYTES (test code = 1011) 4.0 % EOSINOPHILS (test code = 1012) 1.3 % BASOPHILS (test code = 1013) 0.7 % IMMATURE GRANULOCYTES (test code = 1036) 0.3 % NUCLEATED RBCS (test code = 1065) 0.0 /100 WBC'S See_Comment [Automated [employer]] The system which generated this result transmitted reference range: 0.0. The reference range was not used to interpret this result as normal/abnormal. PLATELET COUNT (test code = 1015) 278 K/UL 130-400 ABSOLUTE NEUTROPHILS (test code = 1066) 8.20 K/UL 1.50-7.50 H ABSOLUTE LYMPHOCYTES (test code = 1067) 2.82 K/UL 1.00-4.00 ABSOLUTE MONOCYTES (test code = 1068) 0.47 K/UL 0.20-1.00 ABSOLUTE EOSINOPHILS (test code = 1040) 0.15 K/UL 0.00-0.50 ABSOLUTE BASOPHILS (test code = 1069) 0.08 K/UL 0.00-0.20 ABS IMMATURE GRANULOCYTES (test code = 1020) 0.03 K/UL 0.00-0.10 ABS NUCLEATED RBCS (test code = 93318) 0.00 K/UL 0.00-0.11 POCT [id number] 11:33:00* Test Item Value Reference Range Interpretation Comme nts POCT PREG (test code = 1605) Negative On board controls acceptable with C Line (test code = 3574) Yes POCT PREG LOT # (test code = 3575) POCT PREG TEST DATE ( test code = 3576) Lab Interpretation (test cod e = 28597-5) [facility] Wo Cont
[2023-05-12 15:44] LABS: Absolute Lymphocytes (CBC) 1.8 K/uL (0.7-4.9); Hematocrit 37.5 % (36.0-45.0); Lymphocytes % 21.7 % (15.3-44.8); MCV 90.9 fL (80-100); MPV 9.3 fL (7.6-11.3); Platelets 240 thou/uL (152-406); RBC Red Blood Cell Count 4.12 M/uL (3.86-4.86)
[2023-05-12 15:59] LABS: Albumin 3.4 g/dL (3.4-5.0); Bilirubin Total 0.4 mg/dL (0.2-1.0); Potassium 3.9 mEq/L (3.5-5.1); Protein, Total 7.4 g/dL (6.4-8.2)
--- NOTE | 2023-05-12 17:10 | EDPHYS ---
Physician Documentation [facility] Name: Julián Stokes Age: 23 yrs Sex: Female : 2000 Arrival Date: 05/12/2023 Time: 14:48 Bed 18 Private MD: ED Physician Mohan Tubbs HPI: 05/12 15:45 This 23 yrs old Black Female presents to ER via Ambulatory with complaints of Abdominal cp Pain, Diarrhea. 15:45 The patient presents with abdominal pain. Onset: The symptoms/episode began/occurred 3 cp day(s) ago. Associated signs and symptoms: Pertinent positives: diarrhea. The symptoms are described as crampy, intermittent. Severity of pain: in the emergency department the pain has resolved. Historical: - Allergies: 15:11 No Known Allergies; ap3 - PSHx: 15:11 breast reduction; knee surgery; ap3 - Immunization history:: Client reports having NOT received the Covid vaccine. - Social history:: Smoking status: Reported history of juuling and/or vaping. Patient uses alcohol, occasionally. ROS: 15:46 Constitutional: Negative for body aches, chills, fever, cp 15:46 ENT: Negative for drainage from ear(s), ear pain, sore throat, difficulty swallowing, difficulty handling secretions, 15:46 Cardiovascular: Negative for chest pain, 15:46 Respiratory: Negative for cough, shortness of breath, wheezing, 15:46 Abdomen/GI: Positive for abdominal pain, diarrhea, Negative for vomiting, constipation, 15:46 Neuro: Negative for altered mental status, dizziness, headache, syncope, weakness, 15:46 All other systems are negative, Exam: 15:50 Constitutional: The patient appears in no acute distress, alert, awake, non-toxic, well cp developed, well nourished, obese, 15:50 Head/Face: Normocephalic, atraumatic. cp 15:50 Eyes: Periorbital structures: appear normal, Conjunctiva: normal, no exudate, no cp injection, Sclera: no appreciated abnormality, Lids and lashes: appear normal, bilaterally, 15:50 ENT: External ear(s): are unremarkable, Nose: is normal, Mouth: Lips: moist, Oral mucosa: pink and intact, moist, Posterior pharynx: is normal, airway is patent, no erythema, no exudate, 15:50 Chest/axilla: Inspection: normal, 15:50 Cardiovascular: Rate: normal, Rhythm: regular, 15:50 Respiratory: the patient does not display signs of respiratory distress, Respirations: normal, no use of accessory muscles, no retractions, labored breathing, is not present, Breath sounds: are clear throughout, no decreased breath sounds, no stridor, no wheezing, 15:50 Abdomen/GI: Inspection: abdomen appears normal, Palpation: abdomen is soft and non-tender, in all quadrants, 15:50 Back: pain, is absent, ROM is normal, 15:50 Neuro: Orientation: to person, place \T\ time. Mentation: is normal, Gait: is steady, at a normal pace, without difficulty, Vital Signs: 15:12 BP 140 / 64; Pulse 89; Resp 18; Temp 98.4; Pulse Ox 100% ; ap3 16:39 BP 132 / 59; Pulse 88; Resp 18; Pulse Ox 99% on R/A; rs5 17:22 BP 135 / 62; Pulse 82; Resp 18; Pulse Ox 98% on R/A; rs5 MDM: 15:14 Patient medically screened. cp 15:47 Differential diagnosis: cholecystitis, Cholelithiasis, gastritis, Ureterolithiasis, cp urinary tract infection, colitis. 17:08 Data reviewed: vital signs, nurses notes, lab test result(s), and as a result, I will cp discharge patient. 17:08 Counseling: I had a detailed discussion with the patient and/or guardian regarding the cp historical points, exam findings, and any diagnostic results supporting the discharge/admit diagnosis, lab results, to return to the emergency department if symptoms worsen or persist or if there are any questions or concerns that arise at home. 05/12 15:15 Order name: CBC with Diff; Complete Time: 15:45 cp 05/12 15:45 Interpretation: Reviewed. cp 05/12 15:15 Order name: CMP; Complete Time: 16:26 cp 05/12 15:15 Order name: Lipase; Complete Time: 16:26 cp 05/12 15:15 Order name: Test, Urine; Complete Time: 17:22 cp 05/12 17:22 Interpretation: Reviewed. cp 05/12 15:15 Order name: Urinalysis w/ reflexes; Complete Time: 17:22 cp 05/12 17:22 Interpretation: Reviewed. cp 05/12 15:15 Order name: COVID-19 SARS RT PCR; Complete Time: 16:47 cp 05/12 15:15 Order name: Influenza Screen (a \T\ B); Complete Time: 16:26 cp 05/12 15:15 Order name: IV Saline Lock; Complete Time: 16:33 cp 05/12 15:15 Order name: Labs collected and sent; Complete Time: 16:33 cp Administered Medications: No medications were administered Disposition Summary: 05/12/23 17:09 Discharge Ordered Notes: Location: Home cp Problem: new cp Symptoms: are unchanged cp Condition: Stable cp Diagnosis - Diarrhea, unspecified cp Followup: cp - With: Private Physician - When: 1 - 2 days - Reason: Worsening of condition Discharge Instructions: - Discharge Summary Sheet cp - Food Choices to Help Relieve Diarrhea, Adult cp - Diarrhea, Adult cp - Form - Excuse from Work, School, or Physical Activity cp Forms: - Family Work Release cp - Medication Reconciliation Form cp - Thank You Letter cp - Antibiotic Education cp - Prescription Opioid Use cp - Patient Portal Instructions cp - Leadership Thank You Letter cp - Work release form rs5 Signatures: Dispatcher [employer] Mohan Sauceda PA PA cp Prokisch, Amanda, RN RN ap3
--- NOTE | 2023-05-12 17:10 | ER ---
Nurse's Notes [facility] Name: Julián Stokes Age: 23 yrs Sex: Female : 2000 Arrival Date: 05/12/2023 Time: 14:48 Bed 18 Private MD: Diagnosis: Diarrhea, unspecified Presentation: 05/12 15:11 Chief complaint: Patient states: she has been having diarrhea for 3 days, and cramping ap3 prior to her bowl movements. Coronavirus screen: At this time, the client does not indicate any symptoms associated with coronavirus-19. Ebola Screen: No symptoms or risks identified at this time. Risk Assessment: Do you want to hurt yourself or someone else? Patient reports no desire to harm self or others. Onset of symptoms was May 09, 2023. 15:11 Method Of Arrival: Ambulatory ap3 15:11 Acuity: JOSELYN 3 ap3 15:12 Initial Sepsis Screen: Does the patient meet any 2 criteria? No. Patient's initial ap3 sepsis screen is negative. Does the patient have a suspected source of infection? No. Patient's initial sepsis screen is negative. Triage Assessment: 15:12 General: Appears in no apparent distress. Behavior is calm, cooperative, appropriate ap3 for age. Pain: Complains of pain in abdomen Quality of pain is described as crampy, Pain began 2-3 days ago. Neuro: Level of Consciousness is awake, alert, obeys commands, Oriented to person, place, time, situation. Cardiovascular: Patient's skin is warm and dry. Respiratory: Airway is patent Respiratory effort is even, unlabored, Respiratory pattern is regular, symmetrical. GI: Reports cramping, diarrhea. Historical: - Allergies: 15:11 No Known Allergies; ap3 - PSHx: 15:11 breast reduction; knee surgery; ap3 - Immunization history:: Client reports having NOT received the Covid vaccine. - Social history:: Smoking status: Reported history of juuling and/or vaping. Patient uses alcohol, occasionally. Screenin:[facility] ED Fall Risk Assessment (Adult) History of falling in the last 3 months, ap3 including since admission No falls in past 3 months (0 pts). Abuse screen: Denies threats or abuse. Nutritional screening: No deficits noted. Tuberculosis screening: No symptoms or risk factors identified. Assessment: 15:15 General: Appears in no apparent distress. comfortable, Behavior is calm, cooperative. rs5 Pain: Denies pain. Neuro: Level of Consciousness is awake, alert, obeys commands, Oriented to person, place, time, situation. Cardiovascular: Heart tones S1 S2 present Patient's skin is warm and dry. Rhythm is regular. Respiratory: Airway is patent Respiratory effort is even, unlabored, Respiratory pattern is regular, symmetrical, Breath sounds are clear bilaterally. 15:15 GI: Bowel sounds present X 4 quads. Abd is soft and non tender X 4 quads. Reports rs5 diarrhea, since 05/09/22 Patient currently denies nausea, vomiting. : No signs and/or symptoms were reported regarding the genitourinary system. EENT: No signs and/or symptoms were reported regarding the EENT system. Derm: Skin is intact, Skin is dry, Skin is normal, Skin temperature is warm. Musculoskeletal: Range of motion: intact in all extremities. 16:36 Reassessment: No changes from previously documented assessment. rs5 16:39 Pain: Denies pain. rs5 17:22 Reassessment: Patient and/or family updated on plan of care and expected duration. Pain rs5 level reassessed. Patient is alert, oriented x 3, equal unlabored respirations, skin warm/dry/pink. Vital Signs: 15:12 BP 140 / 64; Pulse 89; Resp 18; Temp 98.4; Pulse Ox 100% ; ap3 16:39 BP 132 / 59; Pulse 88; Resp 18; Pulse Ox 99% on R/A; rs5 17:22 BP 135 / 62; Pulse 82; Resp 18; Pulse Ox 98% on R/A; rs5 ED Course: 14:54 Patient arrived in ED. mg5 15:04 Mohan Melo PA is PHCP. cp 15:04 Mohan Tubbs MD is Attending Physician. cp 15:11 Triage completed. ap3 15:13 Arm band placed on right wrist. ap3 15:15 Patient has correct armband on for positive identification. Bed in low position. Call rs5 light in reach. Side rails up X2. 15:15 Inserted saline lock: 24 gauge in left antecubital area, using aseptic technique. Blood rs5 collected. 15:16 Chico Noble, KENYATTA is Primary Nurse. rs5 16:36 No provider procedures requiring assistance completed. rs5 17:23 IV discontinued, intact, bleeding controlled, No redness/swelling at site. Pressure rs5 dressing applied. Administered Medications: No medications were administered Medication: 16:37 VIS not applicable for this client. rs5 Outcome: 17:09 Discharge ordered by . mundo 17:22 Discharged to home ambulatory, with family, rs5 17:22 Condition: stable 17:22 Discharge instructions given to patient, family, Instructed on discharge instructions, follow up and referral plans. Demonstrated understanding of instructions, follow-up care, 17:23 Patient left the ED. rs5 Signatures: Mohan Melo PA PA cp Prokisch, Amanda, RN RN ap3 Chico Noble RN RN rs5 Brianne Oconnor mg5 Corrections: (The following items were deleted from the chart) 16:39 15:15 GI: Bowel sounds present X 4 quads. Abd is soft and non tender X 4 quads. Patient rs5 currently denies nausea, vomiting, rs5
[2023-05-12 17:19] LABS: Specific Gravity 1.018 (1.005-1.030); Urine Bilirubin NEGATIVE (Negative); Urine Blood Negative (Negative); Urine Clarity Clear (Clear); Urine Color Colorless (Yellow); Urine Glucose NEGATIVE (Negative); Urine Protein NEGATIVE (Negative); Urine Urobilinogen Normal (Normal)
[2023-05-12 19:18] VITALS: BP 135/62; TEMP 98.4; O2SAT 98
== END ==
LOC: ER 14:48
DX: R19.7 Diarrhea, unspecified (principal); Z11.52 Encounter for screening for COVID-19
CPT/HCPCS: 36415; 80053; 81003; 81025; 83690; 85025; 87635; 87804; 99284

== ENCOUNTER 2023-08-14 22:30 | Emergency (ER) | payer OTHER ==
--- OUTSIDE RECORDS SUMMARY | 2023-08-14 22:41 | XMS REPORT | Continuity of Care Document ---
Author Name Unknown Address [address] [facility] [address] [place] [address] [facility] thconnect Address [address] [place] [address] Care Team Providers Care Curriculum Coordinator Name Role Phone PCP, PATIENT DOES NOT HAVE A Primary Care Physic [place] Unavailable ELVIE FAN Attending Clinician Unavailable KELLY GLASS Attending Clinician Unavailab Robert OLIVAS, Kelly Attending Clinician [phone] Elvie Fan MD Attending Clinician [phone] DANIS ZHONG Attending Clinician Unavailabl e Doctor Unassigned, [place] Attending Clinician U laurie Manrique RN, Randi Attending Clinician Unavailjonathan e Only, Adc Test Attending Clinician Unavailable Dhiraj June MD Attending Clinician [phone] DHIRAJ JUNE Attending Clinician UnavailJocelin Trejo MD Attending Clinician [phone] Leyda Wang Attending Clinician [phone] Izzy Chase Attending Clinician [phone] IZZY VILLANUEVA Attending Clinician UnavailSAMIA Gonzalez Attending Clinician Unavailable Adalberto Mendes Attending Clinician [phone] ADALBERTO HERBERT Attending Clinician Unavailable Samia Bae MD Attending Clinician [phone] Brian WLADRONAlison Minor Attending Clinician ELVIE FAN Admitting Clinician Unavailable Elvie Fan MD Admitting Clinician [phone] Payers Payer Name Policy Type Policy Number Effective Date Expirati on Date Source [employer] MEDICAID [id number] 2016 00:00:00 [employer] 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 [employer]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 [id number] 2022 00:00:00 [facility] [id number] [facility] [id number] [facility] [id number] [facility] [id number] [facility] [id number] [facility] [id number] [facility] [id number] [facility] [id number] [facility] [id number] [facility] [id number] [facility] [id number] [facility] Problems Condition Name Condition Details Condition Category Status Onset Date Resolution Date Last Treatment Date Treating Clinician Comments Source Morbid obesity with body mass index of 40.0-49.9 Morbid obesity with body mass index of 40.0-49.9 Disease Active 06-17 00:00: 00 [facility] Morbid obesity with body mass index of 40.0-49.9 Morbid obesity with body mass index of 40.0-49.9 Disease Active 06-17 00:00: 00 [facility] Macromasti a Macromasti a Disease Active 2019-04 2 00:00: 00 Overview: Formattin g of this note might be different from the original. Added automatic ally from request for surgery [id number] [facility] Rupture of anterior cruciate ligament of right knee Rupture of anterior cruciate ligament of right knee Disease Active 2019-04 0-30 00:00: 00 [facility] Acute medial meniscus tear of right knee Acute medial meniscus tear of right knee Disease Active 2019-04 0 00:00: 00 [facility] High risk homosexual behavior High risk homosexual behavior Disease Active 11-22 00:00: 00 [facility] Passive smoke exposure Passive smoke exposure Disease Active 05-25 00:00: 00 [facility] Acanthosis nigricans Acanthosis nigricans Disease Active 05-25 00:00: 00 [facility] Obesity (BMI 35.0-39.9 without comorbidit y) Obesity (BMI 35.0-39.9 without comorbidit y) Disease Active 06-09 00:00: 00 [facility] Allergies, Adverse Reactions, Alerts Allergy Name Allergy Type Status Severity Reaction(s) Onset Date Inactive Date Treating Clinician Comments Source NO KNOWN ALLERGIE S Drug Class Active [facility] Social History Social Habit Start Date Stop Date Quantity Comments Source History of Tobacco Use [facility] Sex Assigned At [facility] to SARS-CoV-2 (event) Not sure [facility] Alcohol intake 2023-02-25 00:00:00 2023-02-25 00:00:00 0 /d [facility] History of Social function 2020-06-17 00:00:00 2020-06-17 00:00:00 [facility] Tobacco use and exposure 2016-06-09 00:00:00 2016-06-09 00:00:00 Smokeless tobacco non-user [facility] Tobacco Comment 2016-06-09 00:00:00 2016-06-09 00:00:00 step father smokes outside [facility] Smoking Status Start Date Stop Date Source Never smoked tobacco [facility] Medications Ordered Medication Name Filled Medication Name Start Date Stop Date Current Medication? Ordering Clinician Indication Dosage Frequency Signature (SIG) Comments Components Source silver sulfADIAZIN E (SILVADENE) 1 % cream 07-09 00:00: 00 Yes [id number] Apply to area(s) 2 (two) times daily. [facility] HYDROmorpho ne (DILAUDID) injection 0.2 mg 06-17 17:41: 09 Yes .2mg 0.2 mg, Slow IV Push, Q5MIN PRN, 10 doses, Starting 06/17/20 at 1141, Until Discontinu ed, Routine, Pain (scale 7-10), PACU
Us e approved by (Faculty): PACU USE -ANESTHESI A SERVICE-HY DROMORPHON E INJECTIONS [facility] FENTanyl PF (SUBLIMAZE (PF)) injection 25 mcg 06-17 17:41: 09 Yes 25ug 25 mcg, Slow IV Push, Q5MIN PRN, 4 doses, Starting 06/17/20 at 1141, Until Discontinu ed, Routine, Pain (scale 4-6), PACU [facility] ondansetron (ZOFRAN (PF)) injection 4 mg 06-17 17:41: 09 Yes 4mg 4 mg, Slow IV Push, PRN, 1 dose, Starting 06/17/20 at 1141, Until Discontinu ed, Routine, Nausea and Vomiting (N/V), PACU [facility] gentian shelly 1 % solution 06-17 15:28: 00 Yes PRN, Starting e 06/17/20 at 0928, Until Discontinu ed, Routine, Intra-op [facility] bupivacaine (preserv free) 0.5% (SENSORCAIN E MPF) 0.5 % (5 mg/mL) 30 mL, bupivacaine liposome (PF) (EXPAREL (PF)) 1.3 % (13.3 mg/mL) 266 mg, NaCl 0.9% (NS) 50 mL 06-17 14:44: 00 Yes PRN, Starting Tue06/17/20 at 0844, Intra-op [facility] gabapentin (NEURONTIN) tablet 600 mg 06-17 11:30: 00 06-17 11:47 :00 No 600mg 600 mg, Oral, ONCE, 1 dose, Tue06/17/20 at 0530, Routine, DSU Pre-op [facility] ceFAZolin in dextrose (iso-os) (ANCEF) 2 gram/100 mL Piggyback 2 g 06-17 11:30: 00 06-17 12:56 :00 No 2000mg 2 g (2,000 mg), IV Piggyback, ONCE, 1 dose, 06/17/20 at 0530, 100 mL, DSU Pre-op
Reason for Anti-Infec tive: Surgical Prophylaxi s
Surgi harvey Prophylaxi s: Other (see Comments)< br>Duratio n of therapy: within 24 hours of surgery [facility] lactated ringers IV infusion 1,000 mL 06-17 11:30: 00 06-17 11:48 :00 No 1000mL at 42 mL/hr, 1,000 mL, IV Infusion, ONCE, 1 dose, 06/17/20 at 0530, Routine, DSU Pre-op [facility] gabapentin 600 mg tablet 06-17 00:00: 00 07-02 04:59 :00 No 600mg Take 1 tablet by mouth 3 (three) times daily for 14 days. [facility] acetaminoph en (TYLENOL EXTRA STRENGTH) 500 mg tablet 06-11 00:00: 00 06-26 05:59 :00 No [id number] 1000mg Take 2 tablets by mouth every 8 (eight) hours for 14 days. [facility] celecoxib (CELEBREX) 200 mg capsule 06-11 00:00: 06-26 05:59 :00 No [id number] 200mg Take 1 capsule by mouth 2 (two) times daily with meals for 14 days. [facility] chlorhexidi ne 4 % external liquid 06-11 00:00: 00 06-17 00:00 :00 No [id number] Apply to area(s) once daily as needed for Wound care. [facility] gabapentin ER 600 mg tablet, extended release 24 hr 06-11 00:00: 06-17 00:00 :00 No [id number] 600mg Take 1 tablet by mouth every 8 (eight) hours for 14 days. [facility] scopolamine transdermal 1 mg over 3 days patch 224 00:00: 00 06-15 05:59 :00 No [id number] 1.5mg Apply 1 Patch to area(s) every 72 (seventy-t wo) hours for 3 days. [facility] ibuprofen 600 mg tablet 2019-04 00:00: 05-14 00:00 :00 No 600mg Take 600 mg by mouth every 6 (six) hours as needed for Pain (scale 4-6). [facility] Mobic 7.5 MG Mobic 7.5 MG 2019-04 00:00: 00 03-12 00:00 :00 No 1{table t} QD Mobic 7.5 MG acetaminoph en (TYLENOL) tablet 1,000 mg 2019-04 21:00: 01-19 20:01 :00 No 1000mg 1,000 mg, Oral, ONCE, 1 dose, 01/20/20 at 1600, R[place]D [facility] traMADoL 50 mg tablet 2019-04 00:00: 05-14 00:00 :00 No [id number] 50mg Take 1 tablet by mouth every 8 (eight) hours as needed for Pain (scale 7-10) for up to 15 doses. Indication s: acute pain [facility] ibuprofen 800 mg tablet 2019-04 00:00: 01-19 00:00 :00 No [id number] 800mg Take 1 tablet by mouth every 8 (eight) hours as needed for Pain (scale 4-6) for up to 30 doses. [facility] ibuprofen 800 mg tablet 07-19 00:00: 00 01-01 00:00 :00 No [id number] 800mg Take 1 tablet by mouth every 8 (eight) hours. [facility] traMADOL 50 mg tablet 09-18 00:00: 07-19 00:00 :00 No [id number] 50mg Take 1 tablet by mouth every 6 (six) hours as needed for Pain (scale 4-6). [facility] ibuprofen 800 mg tablet 603 00:00: 00 07-19 00:00 :00 No [id number] 800mg Take 1 tablet by mouth every 8 (eight) hours. [facility] Dextrometho rphan-Guaif enesin (DELSYM COUGH-CHEST CONGEST DM) 5-100 mg/5 mL Liqd 2-12 00:00: 00 07-19 00:00 :00 No [id number] 10mL Take 10 mL by mouth 2 (two) times daily. [facility] No known medications No Un carol [facility] No known medications No Un carol [facility] No known medications No [facility] No known medications No Un carol [facility] Ibuprofen Ibuprofen No Ibuprofen [facility] Immunizations Ordered Immunization Name Filled Immunization Name Date Status Comments Source Meningococcal B, OMV 2019-11-23 00:00:00 Completed [facility] Meningococcal B, OMV 2019-11-23 00:00:00 Completed [facility] Meningococcal B, V 2019-11-23 00:00:00 Completed [facility] Meningococcal B, OMV 2019-11-23 00:00:00 Completed [facility] Meningococcal B, OMV 2019-11-23 00:00:00 Completed [facility] Meningococcal B, OMV 2019-11-23 00:00:00 Completed [facility] Meningococcal B, OMV 2019-11-23 00:00:00 Completed [facility] Meningococcal B, OMV 2019-11-23 00:00:00 Completed [facility] Meningococcal B, OMV 2019-11-23 00:00:00 Completed [facility] Meningococcal B, OMV 2019-11-23 00:00:00 Completed [facility] Meningococcal B, OMV 2019-11-23 00:00:00 Completed [facility] Meningococcal B, OMV 2019-11-23 00:00:00 Completed [facility] Meningococcal B, V 2019-11-23 00:00:00 Completed [facility] Meningococcal B, OMV 2019-11-23 00:00:00 Completed [facility] Meningococcal B, OMV 2019-11-23 00:00:00 Completed [facility] Meningococcal B, OMV 2019-11-23 00:00:00 Completed [facility] Meningococcal B, OMV 2019-11-23 00:00:00 Completed [facility] Meningococcal B, OMV 2019-11-23 00:00:00 Completed [facility] Meningococcal B, OMV 2019-11-23 00:00:00 Completed [facility] Meningococcal B, OMV 2019-11-23 00:00:00 Completed [facility] Meningococcal B, OMV 2019-11-23 00:00:00 Completed [facility] Meningococcal B, OMV 2019-11-23 00:00:00 Completed [facility] Meningococcal B, OMV 2019-11-23 00:00:00 Completed [facility] Meningococcal B, OMV 2019-11-23 00:00:00 Completed [facility] Meningococcal B, OMV 2019-11-23 00:00:00 Completed [facility] Meningococcal B, OMV 2019-11-23 00:00:00 Completed [facility] Meningococcal B, OMV 2019-11-23 00:00:00 Completed [facility] Meningococcal B, OMV 2019-11-23 00:00:00 Completed [facility] Meningococcal B, OMV 2019-11-23 00:00:00 Completed [facility] Meningococcal B, OMV 2019-11-23 00:00:00 Completed [facility] Meningococcal B, OMV 2019-11-23 00:00:00 Completed [facility] Meningococcal B, OMV 2019-11-23 00:00:00 Completed [facility] Meningococcal B, OMV 2019-11-23 00:00:00 Completed [facility] Meningococcal B, OMV 2019-11-23 00:00:00 Completed [facility] Meningococcal B, OMV 2019-11-23 00:00:00 Completed [facility] Meningococcal B, OMV 2019-11-23 00:00:00 Completed [facility] Meningococcal B, OMV 2019-11-23 00:00:00 Completed [facility] Meningococcal B, OMV 2019-11-23 00:00:00 Completed [facility] Meningococcal B, OMV 2019-11-23 00:00:00 Completed [facility] Meningococcal B, V 2019-11-23 00:00:00 Completed [facility] Meningococcal B, V 2019-11-23 00:00:00 Completed [facility] Meningococcal B, V 2019-11-23 00:00:00 Completed [facility] Meningococcal Polysaccharide (groups A, C, Y and W-135) conjugate vaccine (MCV4P) 2017-05-25 00:00:00 Completed [facility] Influenza Virus Vaccine Quad IM 3+ YRS 2017-05-25 00:00:00 Completed [facility] Meningococcal B, OMV 2017-05-25 00:00:00 Completed [facility] Meningococcal Polysaccharide (groups A, C, Y and W-135) conjugate vaccine (MCV4P) 2017-05-25 00:00:00 Completed [facility] Influenza Virus Vaccine Quad IM 3+ YRS 2017-05-25 00:00:00 Completed [facility] Meningococcal B, OMV 2017-05-25 00:00:00 Completed [facility] Meningococcal Polysaccharide (groups A, C, Y and W-135) conjugate vaccine (MCV4P) 2017-05-25 00:00:00 Completed [facility] Influenza Virus Vaccine Quad IM 3+ YRS 2017-05-25 00:00:00 Completed [facility] Meningococcal B, OMV 2017-05-25 00:00:00 Completed [facility] Meningococcal Polysaccharide (groups A, C, Y and W-135) conjugate vaccine (MCV4P) 2017-05-25 00:00:00 Completed [facility] Meningococcal Polysaccharide (groups A, C, Y and W-135) conjugate vaccine (MCV4P) 2017-05-25 00:00:00 Completed [facility] Influenza Virus Vaccine Quad IM 3+ YRS 2017-05-25 00:00:00 Completed [facility] Meningococcal B, OMV 2017-05-25 00:00:00 Completed [facility] Influenza Virus Vaccine Quad IM 32017-05-25 00:00:00 Completed [facility] Meningococcal B, OMV 2017-05-25 00:00:00 Completed [facility] Meningococcal Polysaccharide (groups A, C, Y and W-135) conjugate vaccine (MCV4P) 2017-05-25 00:00:00 Completed [facility] Influenza Virus Vaccine Quad IM 2017-05-25 00:00:00 Completed [facility] Meningococcal B, OMV 2017-05-25 00:00:00 Completed [facility] Meningococcal Polysaccharide (groups A, C, Y and W-135) conjugate vaccine (MCV4P) 2017-05-25 00:00:00 Completed [facility] Influenza Virus Vaccine Quad IM 2017-05-25 00:00:00 Completed [facility] Meningococcal B, OMV 2017-05-25 00:00:00 Completed [facility] Meningococcal Polysaccharide (groups A, C, Y and W-135) conjugate vaccine (MCV4P) 2017-05-25 00:00:00 Completed [facility] Influenza Virus Vaccine Quad IM 2017-05-25 00:00:00 Completed [facility] Meningococcal B, OMV 2017-05-25 00:00:00 Completed [facility] Meningococcal Polysaccharide (groups A, C, Y and W-135) conjugate vaccine (MCV4P) 2017-05-25 00:00:00 Completed [facility] Influenza Virus Vaccine Quad IM 2017-05-25 00:00:00 Completed [facility] Meningococcal B, OMV 2017-05-25 00:00:00 Completed [facility] Meningococcal Polysaccharide (groups A, C, Y and W-135) conjugate vaccine (MCV4P) 2017-05-25 00:00:00 Completed [facility] Influenza Virus Vaccine Quad IM 32017-05-25 00:00:00 Completed [facility] Meningococcal B, OMV 2017-05-25 00:00:00 Completed [facility] Meningococcal Polysaccharide (groups A, C, Y and W-135) conjugate vaccine (MCV4P) 2017-05-25 00:00:00 Completed [facility] Influenza Virus Vaccine Quad IM 3+ YRS 2017-05-25 00:00:00 Completed [facility] Meningococcal B, OMV 2017-05-25 00:00:00 Completed [facility] Meningococcal Polysaccharide (groups A, C, Y and W-135) conjugate vaccine (MCV4P) 2017-05-25 00:00:00 Completed [facility] Influenza Virus Vaccine Quad IM 32017-05-25 00:00:00 Completed [facility] Meningococcal B, OMV 2017-05-25 00:00:00 Completed [facility] Meningococcal Polysaccharide (groups A, C, Y and W-135) conjugate vaccine (MCV4P) 2017-05-25 00:00:00 Completed [facility] Influenza Virus Vaccine Quad IM 32017-05-25 00:00:00 Completed [facility] Meningococcal B, OMV 2017-05-25 00:00:00 Completed [facility] Meningococcal Polysaccharide (groups A, C, Y and W-135) conjugate vaccine (MCV4P) 2017-05-25 00:00:00 Completed [facility] Influenza Virus Vaccine Quad IM 2017-05-25 00:00:00 Completed [facility] Meningococcal B, OMV 2017-05-25 00:00:00 Completed [facility] Meningococcal Polysaccharide (groups A, C, Y and W-135) conjugate vaccine (MCV4P) 2017-05-25 00:00:00 Completed [facility] Influenza Virus Vaccine Quad IM 32017-05-25 00:00:00 Completed [facility] Meningococcal B, OMV 2017-05-25 00:00:00 Completed [facility] Meningococcal Polysaccharide (groups A, C, Y and W-135) conjugate vaccine (MCV4P) 2017-05-25 00:00:00 Completed [facility] Influenza Virus Vaccine Quad IM 3 YRS 2017-05-25 00:00:00 Completed [facility] Meningococcal B, OMV 2017-05-25 00:00:00 Completed [facility] Meningococcal Polysaccharide (groups A, C, Y and W-135) conjugate vaccine (MCV4P) 2017-05-25 00:00:00 Completed [facility] Influenza Virus Vaccine Quad IM 3+ YRS 2017-05-25 00:00:00 Completed [facility] Meningococcal B, OMV 2017-05-25 00:00:00 Completed [facility] Meningococcal Polysaccharide (groups A, C, Y and W-135) conjugate vaccine (MCV4P) 2017-05-25 00:00:00 Completed [facility] Influenza Virus Vaccine Quad IM 3+ YRS 2017-05-25 00:00:00 Completed [facility] Meningococcal B, OMV 2017-05-25 00:00:00 Completed [facility] Meningococcal Polysaccharide (groups A, C, Y and W-135) conjugate vaccine (MCV4P) 2017-05-25 00:00:00 Completed [facility] Influenza Virus Vaccine Quad IM 3+ YRS 2017-05-25 00:00:00 Completed [facility] Meningococcal B, OMV 2017-05-25 00:00:00 Completed [facility] Meningococcal Polysaccharide (groups A, C, Y and W-135) conjugate vaccine (MCV4P) 2017-05-25 00:00:00 Completed [facility] Influenza Virus Vaccine Quad IM 3 YRS 2017-05-25 00:00:00 Completed [facility] Meningococcal B, OMV 2017-05-25 00:00:00 Completed [facility] Meningococcal Polysaccharide (groups A, C, Y and W-135) conjugate vaccine (MCV4P) 2017-05-25 00:00:00 Completed [facility] Influenza Virus Vaccine Quad IM 3 YRS 2017-05-25 00:00:00 Completed [facility] Meningococcal B, OMV 2017-05-25 00:00:00 Completed [facility] Meningococcal Polysaccharide (groups A, C, Y and W-135) conjugate vaccine (MCV4P) 2017-05-25 00:00:00 Completed [facility] Influenza Virus Vaccine Quad IM 3+ YRS 2017-05-25 00:00:00 Completed [facility] Meningococcal B, OMV 2017-05-25 00:00:00 Completed [facility] Meningococcal Polysaccharide (groups A, C, Y and W-135) conjugate vaccine (MCV4P) 2017-05-25 00:00:00 Completed [facility] Influenza Virus Vaccine Quad IM 3+ YRS 2017-05-25 00:00:00 Completed [facility] Meningococcal B, OMV 2017-05-25 00:00:00 Completed [facility] Meningococcal Polysaccharide (groups A, C, Y and W-135) conjugate vaccine (MCV4P) 2017-05-25 00:00:00 Completed [facility] Influenza Virus Vaccine Quad IM 3+ YRS 2017-05-25 00:00:00 Completed [facility] Meningococcal B, OMV 2017-05-25 00:00:00 Completed [facility] Meningococcal Polysaccharide (groups A, C, Y and W-135) conjugate vaccine (MCV4P) 2017-05-25 00:00:00 Completed [facility] Influenza Virus Vaccine Quad IM 3+ YRS 2017-05-25 00:00:00 Completed [facility] Meningococcal B, OMV 2017-05-25 00:00:00 Completed [facility] Meningococcal Polysaccharide (groups A, C, Y and W-135) conjugate vaccine (MCV4P) 2017-05-25 00:00:00 Completed [facility] Influenza Virus Vaccine Quad IM YRS 2017-05-25 00:00:00 Completed [facility] Meningococcal B, OMV 2017-05-25 00:00:00 Completed [facility] Meningococcal Polysaccharide (groups A, C, Y and W-135) conjugate vaccine (MCV4P) 2017-05-25 00:00:00 Completed [facility] Influenza Virus Vaccine Quad IM 3 YRS 2017-05-25 00:00:00 Completed [facility] Meningococcal B, OMV 2017-05-25 00:00:00 Completed [facility] Meningococcal Polysaccharide (groups A, C, Y and W-135) conjugate vaccine (MCV4P) 2017-05-25 00:00:00 Completed [facility] Influenza Virus Vaccine Quad IM 3+ YRS 2017-05-25 00:00:00 Completed [facility] Meningococcal B, OMV 2017-05-25 00:00:00 Completed [facility] Meningococcal Polysaccharide (groups A, C, Y and W-135) conjugate vaccine (MCV4P) 2017-05-25 00:00:00 Completed [facility] Influenza Virus Vaccine Quad IM 3+ YRS 2017-05-25 00:00:00 Completed [facility] Meningococcal B, OMV 2017-05-25 00:00:00 Completed [facility] Meningococcal Polysaccharide (groups A, C, Y and W-135) conjugate vaccine (MCV4P) 2017-05-25 00:00:00 Completed [facility] Influenza Virus Vaccine Quad IM 3 YRS 2017-05-25 00:00:00 Completed [facility] Meningococcal B, OMV 2017-05-25 00:00:00 Completed [facility] Meningococcal Polysaccharide (groups A, C, Y and W-135) conjugate vaccine (MCV4P) 2017-05-25 00:00:00 Completed [facility] Influenza Virus Vaccine Quad IM 3 YRS 2017-05-25 00:00:00 Completed [facility] Meningococcal B, OMV 2017-05-25 00:00:00 Completed [facility] Meningococcal Polysaccharide (groups A, C, Y and W-135) conjugate vaccine (MCV4P) 2017-05-25 00:00:00 Completed [facility] Influenza Virus Vaccine Quad IM YRS 2017-05-25 00:00:00 Completed [facility] Meningococcal B, OMV 2017-05-25 00:00:00 Completed [facility] Meningococcal Polysaccharide (groups A, C, Y and W-135) conjugate vaccine (MCV4P) 2017-05-25 00:00:00 Completed [facility] Influenza Virus Vaccine Quad IM 3 YRS 2017-05-25 00:00:00 Completed [facility] Meningococcal B, OMV 2017-05-25 00:00:00 Completed [facility] Meningococcal Polysaccharide (groups A, C, Y and W-135) conjugate vaccine (MCV4P) 2017-05-25 00:00:00 Completed [facility] Influenza Virus Vaccine Quad IM 3 YRS 2017-05-25 00:00:00 Completed [facility] Meningococcal B, OMV 2017-05-25 00:00:00 Completed [facility] Meningococcal Polysaccharide (groups A, C, Y and W-135) conjugate vaccine (MCV4P) 2017-05-25 00:00:00 Completed [facility] Influenza Virus Vaccine Quad IM 32017-05-25 00:00:00 Completed [facility] Meningococcal B, OMV 2017-05-25 00:00:00 Completed [facility] Meningococcal Polysaccharide (groups A, C, Y and W-135) conjugate vaccine (MCV4P) 2017-05-25 00:00:00 Completed [facility] Influenza Virus Vaccine Quad IM 32017-05-25 00:00:00 Completed [facility] Meningococcal B, OMV 2017-05-25 00:00:00 Completed [facility] Meningococcal Polysaccharide (groups A, C, Y and W-135) conjugate vaccine (MCV4P) 2017-05-25 00:00:00 Completed [facility] Influenza Virus Vaccine Quad IM 2017-05-25 00:00:00 Completed [facility] Meningococcal B, OMV 2017-05-25 00:00:00 Completed [facility] Meningococcal Polysaccharide (groups A, C, Y and W-135) conjugate vaccine (MCV4P) 2017-05-25 00:00:00 Completed [facility] Influenza Virus Vaccine Quad IM 2017-05-25 00:00:00 Completed [facility] Meningococcal B, OMV 2017-05-25 00:00:00 Completed [facility] Meningococcal Polysaccharide (groups A, C, Y and W-135) conjugate vaccine (MCV4P) 2017-05-25 00:00:00 Completed [facility] Influenza Virus Vaccine Quad IM 2017-05-25 00:00:00 Completed [facility] Meningococcal B, OMV 2017-05-25 00:00:00 Completed [facility] Meningococcal Polysaccharide (groups A, C, Y and W-135) conjugate vaccine (MCV4P) 2017-05-25 00:00:00 Completed [facility] Influenza Virus Vaccine Quad IM 32017-05-25 00:00:00 Completed [facility] Meningococcal B, OMV 2017-05-25 00:00:00 Completed [facility] Meningococcal Polysaccharide (groups A, C, Y and W-135) conjugate vaccine (MCV4P) 2017-05-25 00:00:00 Completed [facility] Influenza Virus Vaccine Quad IM 32017-05-25 00:00:00 Completed [facility] Meningococcal B, OMV 2017-05-25 00:00:00 Completed [facility] Meningococcal Polysaccharide (groups A, C, Y and W-135) conjugate vaccine (MCV4P) 2017-05-25 00:00:00 Completed [facility] Influenza Virus Vaccine Quad IM 32017-05-25 00:00:00 Completed [facility] Meningococcal B, OMV 2017-05-25 00:00:00 Completed [facility] Meningococcal Polysaccharide (groups A, C, Y and W-135) conjugate vaccine (MCV4P) 2017-05-25 00:00:00 Completed [facility] Influenza Virus Vaccine Quad IM 2017-05-25 00:00:00 Completed [facility] Meningococcal B, OMV 2017-05-25 00:00:00 Completed [facility] Meningococcal Polysaccharide (groups A, C, Y and W-135) conjugate vaccine (MCV4P) 2017-05-25 00:00:00 Completed [facility] Influenza Virus Vaccine Quad IM 2017-05-25 00:00:00 Completed [facility] Meningococcal B, OMV 2017-05-25 00:00:00 Completed [facility] Meningococcal Polysaccharide (groups A, C, Y and W-135) conjugate vaccine (MCV4P) 2017-05-25 00:00:00 Completed [facility] Influenza Virus Vaccine Quad IM 32017-05-25 00:00:00 Completed [facility] Meningococcal B, OMV 2017-05-25 00:00:00 Completed [facility] Meningococcal Polysaccharide (groups A, C, Y and W-135) conjugate vaccine (MCV4P) 2017-05-25 00:00:00 Completed [facility] Influenza Virus Vaccine Quad IM 3 YRS 2017-05-25 00:00:00 Completed [facility] Meningococcal B, OMV 2017-05-25 00:00:00 Completed [facility] Meningococcal Polysaccharide (groups A, C, Y and W-135) conjugate vaccine (MCV4P) 2017-05-25 00:00:00 Completed [facility] Influenza Virus Vaccine Quad IM 3 YRS 2017-05-25 00:00:00 Completed [facility] Meningococcal B, OMV 2017-05-25 00:00:00 Completed [facility] Meningococcal Polysaccharide (groups A, C, Y and W-135) conjugate vaccine (MCV4P) 2017-05-25 00:00:00 Completed [facility] Influenza Virus Vaccine Quad IM 2017-05-25 00:00:00 Completed [facility] Meningococcal B, OMV 2017-05-25 00:00:00 Completed [facility] Meningococcal Polysaccharide (groups A, C, Y and W-135) conjugate vaccine (MCV4P) 2017-05-25 00:00:00 Completed [facility] Influenza Virus Vaccine Quad IM 2017-05-25 00:00:00 Completed [facility] Meningococcal B, OMV 2017-05-25 00:00:00 Completed [facility] Meningococcal Polysaccharide (groups A, C, Y and W-135) conjugate vaccine (MCV4P) 2017-05-25 00:00:00 Completed [facility] Influenza Virus Vaccine Quad IM 2017-05-25 00:00:00 Completed [facility] Meningococcal B, OMV 2017-05-25 00:00:00 Completed [facility] TDAP 2016-09-10 00:00:00 Completed [facility] HPV9 2016-09-10 00:00:00 Completed [facility] Meningococcal Polysaccharide (groups A, C, Y and W-135) conjugate vaccine (MCV4P) 2016-09-10 00:00:00 Completed [facility] TDAP 2016-09-10 00:00:00 Completed [facility] HPV9 2016-09-10 00:00:00 Completed [facility] Meningococcal Polysaccharide (groups A, C, Y and W-135) conjugate vaccine (MCV4P) 2016-09-10 00:00:00 Completed [facility] TDAP 2016-09-10 00:00:00 Completed [facility] HPV9 2016-09-10 00:00:00 Completed [facility] Meningococcal Polysaccharide (groups A, C, Y and W-135) conjugate vaccine (MCV4P) 2016-09-10 00:00:00 Completed [facility] Tdap 2016-09-10 00:00:00 Completed [facility] HPV9 2016-09-10 00:00:00 Completed [facility] Meningococcal Polysaccharide (groups A, C, Y and W-135) conjugate vaccine (MCV4P) 2016-09-10 00:00:00 Completed [facility] TDAP 2016-09-10 00:00:00 Completed [facility] HPV9 2016-09-10 00:00:00 Completed [facility] Meningococcal Polysaccharide (groups A, C, Y and W-135) conjugate vaccine (MCV4P) 2016-09-10 00:00:00 Completed [facility] TDAP 2016-09-10 00:00:00 Completed [facility] HPV9 2016-09-10 00:00:00 Completed [facility] Meningococcal Polysaccharide (groups A, C, Y and W-135) conjugate vaccine (MCV4P) 2016-09-10 00:00:00 Completed [facility] TDAP 2016-09-10 00:00:00 Completed [facility] HPV9 2016-09-10 00:00:00 Completed [facility] Meningococcal Polysaccharide (groups A, C, Y and W-135) conjugate vaccine (MCV4P) 2016-09-10 00:00:00 Completed [facility] TDAP 2016-09-10 00:00:00 Completed [facility] HPV9 2016-09-10 00:00:00 Completed [facility] Meningococcal Polysaccharide (groups A, C, Y and W-135) conjugate vaccine (MCV4P) 2016-09-10 00:00:00 Completed [facility] TDAP 2016-09-10 00:00:00 Completed [facility] HPV9 2016-09-10 00:00:00 Completed [facility] Meningococcal Polysaccharide (groups A, C, Y and W-135) conjugate vaccine (MCV4P) 2016-09-10 00:00:00 Completed [facility] TDAP 2016-09-10 00:00:00 Completed [facility] HPV9 2016-09-10 00:00:00 Completed [facility] Meningococcal Polysaccharide (groups A, C, Y and W-135) conjugate vaccine (MCV4P) 2016-09-10 00:00:00 Completed [facility] TDAP 2016-09-10 00:00:00 Completed [facility] HPV9 2016-09-10 00:00:00 Completed [facility] Meningococcal Polysaccharide (groups A, C, Y and W-135) conjugate vaccine (MCV4P) 2016-09-10 00:00:00 Completed [facility] TDAP 2016-09-10 00:00:00 Completed [facility] HPV9 2016-09-10 00:00:00 Completed [facility] Meningococcal Polysaccharide (groups A, C, Y and W-135) conjugate vaccine (MCV4P) 2016-09-10 00:00:00 Completed [facility] TDAP 2016-09-10 00:00:00 Completed [facility] HPV9 2016-09-10 00:00:00 Completed [facility] Meningococcal Polysaccharide (groups A, C, Y and W-135) conjugate vaccine (MCV4P) 2016-09-10 00:00:00 Completed [facility] TDAP 2016-09-10 00:00:00 Completed [facility] HPV9 2016-09-10 00:00:00 Completed [facility] Meningococcal Polysaccharide (groups A, C, Y and W-135) conjugate vaccine (MCV4P) 2016-09-10 00:00:00 Completed [facility] HPV9 2016-09-10 00:00:00 Completed [facility] Meningococcal Polysaccharide (groups A, C, Y and W-135) conjugate vaccine (MCV4P) 2016-09-10 00:00:00 Completed [facility] TDAP 2016-09-10 00:00:00 Completed [facility] Tdap 2016-09-10 00:00:00 Completed [facility] HPV9 2016-09-10 00:00:00 Completed [facility] Meningococcal Polysaccharide (groups A, C, Y and W-135) conjugate vaccine (MCV4P) 2016-09-10 00:00:00 Completed [facility] TDAP 2016-09-10 00:00:00 Completed [facility] HPV9 2016-09-10 00:00:00 Completed [facility] Meningococcal Polysaccharide (groups A, C, Y and W-135) conjugate vaccine (MCV4P) 2016-09-10 00:00:00 Completed [facility] TDAP 2016-09-10 00:00:00 Completed [facility] HPV9 2016-09-10 00:00:00 Completed [facility] Meningococcal Polysaccharide (groups A, C, Y and W-135) conjugate vaccine (MCV4P) 2016-09-10 00:00:00 Completed [facility] TDAP 2016-09-10 00:00:00 Completed [facility] HPV9 2016-09-10 00:00:00 Completed [facility] Meningococcal Polysaccharide (groups A, C, Y and W-135) conjugate vaccine (MCV4P) 2016-09-10 00:00:00 Completed [facility] TDAP 2016-09-10 00:00:00 Completed [facility] HPV9 2016-09-10 00:00:00 Completed [facility] Meningococcal Polysaccharide (groups A, C, Y and W-135) conjugate vaccine (MCV4P) 2016-09-10 00:00:00 Completed [facility] TDAP 2016-09-10 00:00:00 Completed [facility] HPV9 2016-09-10 00:00:00 Completed [facility] Meningococcal Polysaccharide (groups A, C, Y and W-135) conjugate vaccine (MCV4P) 2016-09-10 00:00:00 Completed [facility] TDAP 2016-09-10 00:00:00 Completed [facility] HPV9 2016-09-10 00:00:00 Completed [facility] Meningococcal Polysaccharide (groups A, C, Y and W-135) conjugate vaccine (MCV4P) 2016-09-10 00:00:00 Completed [facility] TDAP 2016-09-10 00:00:00 Completed [facility] HPV9 2016-09-10 00:00:00 Completed [facility] Meningococcal Polysaccharide (groups A, C, Y and W-135) conjugate vaccine (MCV4P) 2016-09-10 00:00:00 Completed [facility] TDAP 2016-09-10 00:00:00 Completed [facility] HPV9 2016-09-10 00:00:00 Completed [facility] Meningococcal Polysaccharide (groups A, C, Y and W-135) conjugate vaccine (MCV4P) 2016-09-10 00:00:00 Completed [facility] HPV9 2016-09-10 00:00:00 Completed [facility] Tdap 2016-09-10 00:00:00 Completed [facility] Meningococcal Polysaccharide (groups A, C, Y and W-135) conjugate vaccine (MCV4P) 2016-09-10 00:00:00 Completed [facility] TDAP 2016-09-10 00:00:00 Completed [facility] HPV9 2016-09-10 00:00:00 Completed [facility] Meningococcal Polysaccharide (groups A, C, Y and W-135) conjugate vaccine (MCV4P) 2016-09-10 00:00:00 Completed [facility] TDAP 2016-09-10 00:00:00 Completed [facility] HPV9 2016-09-10 00:00:00 Completed [facility] Meningococcal Polysaccharide (groups A, C, Y and W-135) conjugate vaccine (MCV4P) 2016-09-10 00:00:00 Completed [facility] TDAP 2016-09-10 00:00:00 Completed [facility] HPV9 2016-09-10 00:00:00 Completed [facility] Meningococcal Polysaccharide (groups A, C, Y and W-135) conjugate vaccine (MCV4P) 2016-09-10 00:00:00 Completed [facility] TDAP 2016-09-10 00:00:00 Completed [facility] HPV9 2016-09-10 00:00:00 Completed [facility] Meningococcal Polysaccharide (groups A, C, Y and W-135) conjugate vaccine (MCV4P) 2016-09-10 00:00:00 Completed [facility] TDAP 2016-09-10 00:00:00 Completed [facility] HPV9 2016-09-10 00:00:00 Completed [facility] Meningococcal Polysaccharide (groups A, C, Y and W-135) conjugate vaccine (MCV4P) 2016-09-10 00:00:00 Completed [facility] Tdap 2016-09-10 00:00:00 Completed [facility] HPV9 2016-09-10 00:00:00 Completed [facility] Meningococcal Polysaccharide (groups A, C, Y and W-135) conjugate vaccine (MCV4P) 2016-09-10 00:00:00 Completed [facility] Tdap 2016-09-10 00:00:00 Completed [facility] HPV9 2016-09-10 00:00:00 Completed [facility] Meningococcal Polysaccharide (groups A, C, Y and W-135) conjugate vaccine (MCV4P) 2016-09-10 00:00:00 Completed [facility] Tdap 2016-09-10 00:00:00 Completed [facility] HPV9 2016-09-10 00:00:00 Completed [facility] Meningococcal Polysaccharide (groups A, C, Y and W-135) conjugate vaccine (MCV4P) 2016-09-10 00:00:00 Completed [facility] TDAP 2016-09-10 00:00:00 Completed [facility] HPV9 2016-09-10 00:00:00 Completed [facility] Meningococcal Polysaccharide (groups A, C, Y and W-135) conjugate vaccine (MCV4P) 2016-09-10 00:00:00 Completed [facility] TDAP 2016-09-10 00:00:00 Completed [facility] HPV9 2016-09-10 00:00:00 Completed [facility] Meningococcal Polysaccharide (groups A, C, Y and W-135) conjugate vaccine (MCV4P) 2016-09-10 00:00:00 Completed [facility] TDAP 2016-09-10 00:00:00 Completed [facility] HPV9 2016-09-10 00:00:00 Completed [facility] Meningococcal Polysaccharide (groups A, C, Y and W-135) conjugate vaccine (MCV4P) 2016-09-10 00:00:00 Completed [facility] TDAP 2016-09-10 00:00:00 Completed [facility] HPV9 2016-09-10 00:00:00 Completed [facility] Meningococcal Polysaccharide (groups A, C, Y and W-135) conjugate vaccine (MCV4P) 2016-09-10 00:00:00 Completed [facility] TDAP 2016-09-10 00:00:00 Completed [facility] HPV9 2016-09-10 00:00:00 Completed [facility] Meningococcal Polysaccharide (groups A, C, Y and W-135) conjugate vaccine (MCV4P) 2016-09-10 00:00:00 Completed [facility] TDAP 2016-09-10 00:00:00 Completed [facility] HPV9 2016-09-10 00:00:00 Completed [facility] Meningococcal Polysaccharide (groups A, C, Y and W-135) conjugate vaccine (MCV4P) 2016-09-10 00:00:00 Completed [facility] TDAP 2016-09-10 00:00:00 Completed [facility] HPV9 2016-09-10 00:00:00 Completed [facility] Meningococcal Polysaccharide (groups A, C, Y and W-135) conjugate vaccine (MCV4P) 2016-09-10 00:00:00 Completed [facility] TDAP 2016-09-10 00:00:00 Completed [facility] HPV9 2016-09-10 00:00:00 Completed [facility] Meningococcal Polysaccharide (groups A, C, Y and W-135) conjugate vaccine (MCV4P) 2016-09-10 00:00:00 Completed [facility] TDAP 2016-09-10 00:00:00 Completed [facility] HPV9 2016-09-10 00:00:00 Completed [facility] Meningococcal Polysaccharide (groups A, C, Y and W-135) conjugate vaccine (MCV4P) 2016-09-10 00:00:00 Completed [facility] TDAP 2016-09-10 00:00:00 Completed [facility] HPV9 2016-09-10 00:00:00 Completed [facility] Meningococcal Polysaccharide (groups A, C, Y and W-135) conjugate vaccine (MCV4P) 2016-09-10 00:00:00 Completed [facility] TDAP 2016-09-10 00:00:00 Completed [facility] HPV9 2016-09-10 00:00:00 Completed [facility] Meningococcal Polysaccharide (groups A, C, Y and W-135) conjugate vaccine (MCV4P) 2016-09-10 00:00:00 Completed [facility] TDAP 2016-09-10 00:00:00 Completed [facility] HPV9 2016-09-10 00:00:00 Completed [facility] Meningococcal Polysaccharide (groups A, C, Y and W-135) conjugate vaccine (MCV4P) 2016-09-10 00:00:00 Completed [facility] TDAP 2016-09-10 00:00:00 Completed [facility] HPV9 2016-09-10 00:00:00 Completed [facility] Meningococcal Polysaccharide (groups A, C, Y and W-135) conjugate vaccine (MCV4P) 2016-09-10 00:00:00 Completed [facility] TDAP 2016-09-10 00:00:00 Completed [facility] HPV9 2016-09-10 00:00:00 Completed [facility] Meningococcal Polysaccharide (groups A, C, Y and W-135) conjugate vaccine (MCV4P) 2016-09-10 00:00:00 Completed [facility] TDAP 2016-09-10 00:00:00 Completed [facility] HPV9 2016-09-10 00:00:00 Completed [facility] Meningococcal Polysaccharide (groups A, C, Y and W-135) conjugate vaccine (MCV4P) 2016-09-10 00:00:00 Completed [facility] TDAP 2016-09-10 00:00:00 Completed [facility] HPV9 2016-09-10 00:00:00 Completed [facility] Meningococcal Polysaccharide (groups A, C, Y and W-135) conjugate vaccine (MCV4P) 2016-09-10 00:00:00 Completed [facility] TDAP 2016-09-10 00:00:00 Completed [facility] HPV9 2016-09-10 00:00:00 Completed [facility] Meningococcal Polysaccharide (groups A, C, Y and W-135) conjugate vaccine (MCV4P) 2016-09-10 00:00:00 Completed [facility] HPV 2010-03-03 00:00:00 Completed [facility] Influenza Virus Vaccine 2010-03-03 00:00:00 Completed [facility] HPV 2010-03-03 00:00:00 Completed [facility] Influenza Virus Vaccine 2010-03-03 00:00:00 Completed [facility] HPV 2010-03-03 00:00:00 Completed [facility] Influenza Virus Vaccine 2010-03-03 00:00:00 Completed [facility] HPV 2010-03-03 00:00:00 Completed [facility] HPV 2010-03-03 00:00:00 Completed [facility] Influenza Virus Vaccine 2010-03-03 00:00:00 Completed [facility] Influenza Virus Vaccine 2010-03-03 00:00:00 Completed [facility] HPV 2010-03-03 00:00:00 Completed [facility] Influenza Virus Vaccine 2010-03-03 00:00:00 Completed [facility] HPV 2010-03-03 00:00:00 Completed [facility] Influenza Virus Vaccine 2010-03-03 00:00:00 Completed [facility] HPV 2010-03-03 00:00:00 Completed [facility] Influenza Virus Vaccine 2010-03-03 00:00:00 Completed [facility] HPV 2010-03-03 00:00:00 Completed [facility] Influenza Virus Vaccine 2010-03-03 00:00:00 Completed [facility] HPV 2010-03-03 00:00:00 Completed [facility] Influenza Virus Vaccine 2010-03-03 00:00:00 Completed [facility] HPV 2010-03-03 00:00:00 Completed [facility] Influenza Virus Vaccine 2010-03-03 00:00:00 Completed [facility] HPV 2010-03-03 00:00:00 Completed [facility] Influenza Virus Vaccine 2010-03-03 00:00:00 Completed [facility] HPV 2010-03-03 00:00:00 Completed [facility] Influenza Virus Vaccine 2010-03-03 00:00:00 Completed [facility] HPV 2010-03-03 00:00:00 Completed [facility] Influenza Virus Vaccine 2010-03-03 00:00:00 Completed [facility] HPV 2010-03-03 00:00:00 Completed [facility] Influenza Virus Vaccine 2010-03-03 00:00:00 Completed [facility] HPV 2010-03-03 00:00:00 Completed [facility] Influenza Virus Vaccine 2010-03-03 00:00:00 Completed [facility] HPV 2010-03-03 00:00:00 Completed [facility] Influenza Virus Vaccine 2010-03-03 00:00:00 Completed [facility] HPV 2010-03-03 00:00:00 Completed [facility] Influenza Virus Vaccine 2010-03-03 00:00:00 Completed [facility] HPV 2010-03-03 00:00:00 Completed [facility] Influenza Virus Vaccine 2010-03-03 00:00:00 Completed [facility] HPV 2010-03-03 00:00:00 Completed [facility] Influenza Virus Vaccine 2010-03-03 00:00:00 Completed [facility] HPV 2010-03-03 00:00:00 Completed [facility] Influenza Virus Vaccine 2010-03-03 00:00:00 Completed [facility] HPV 2010-03-03 00:00:00 Completed [facility] Influenza Virus Vaccine 2010-03-03 00:00:00 Completed [facility] HPV 2010-03-03 00:00:00 Completed [facility] Influenza Virus Vaccine 2010-03-03 00:00:00 Completed [facility] HPV 2010-03-03 00:00:00 Completed [facility] Influenza Virus Vaccine 2010-03-03 00:00:00 Completed [facility] HPV 2010-03-03 00:00:00 Completed [facility] Influenza Virus Vaccine 2010-03-03 00:00:00 Completed [facility] HPV 2010-03-03 00:00:00 Completed [facility] Influenza Virus Vaccine 2010-03-03 00:00:00 Completed [facility] HPV 2010-03-03 00:00:00 Completed [facility] Influenza Virus Vaccine 2010-03-03 00:00:00 Completed [facility] HPV 2010-03-03 00:00:00 Completed [facility] Influenza Virus Vaccine 2010-03-03 00:00:00 Completed [facility] HPV 2010-03-03 00:00:00 Completed [facility] Influenza Virus Vaccine 2010-03-03 00:00:00 Completed [facility] HPV 2010-03-03 00:00:00 Completed [facility] Influenza Virus Vaccine 2010-03-03 00:00:00 Completed [facility] HPV 2010-03-03 00:00:00 Completed [facility] Influenza Virus Vaccine 2010-03-03 00:00:00 Completed [facility] HPV 2010-03-03 00:00:00 Completed [facility] Influenza Virus Vaccine 2010-03-03 00:00:00 Completed [facility] HPV 2010-03-03 00:00:00 Completed [facility] Influenza Virus Vaccine 2010-03-03 00:00:00 Completed [facility] HPV 2010-03-03 00:00:00 Completed [facility] Influenza Virus Vaccine 2010-03-03 00:00:00 Completed [facility] HPV 2010-03-03 00:00:00 Completed [facility] Influenza Virus Vaccine 2010-03-03 00:00:00 Completed [facility] HPV 2010-03-03 00:00:00 Completed [facility] Influenza Virus Vaccine 2010-03-03 00:00:00 Completed [facility] HPV 2010-03-03 00:00:00 Completed [facility] Influenza Virus Vaccine 2010-03-03 00:00:00 Completed [facility] HPV 2010-03-03 00:00:00 Completed [facility] Influenza Virus Vaccine 2010-03-03 00:00:00 Completed [facility] HPV 2010-03-03 00:00:00 Completed [facility] Influenza Virus Vaccine 2010-03-03 00:00:00 Completed [facility] HPV 2010-03-03 00:00:00 Completed [facility] Influenza Virus Vaccine 2010-03-03 00:00:00 Completed [facility] HPV 2010-03-03 00:00:00 Completed [facility] Influenza Virus Vaccine 2010-03-03 00:00:00 Completed [facility] HPV 2010-03-03 00:00:00 Completed [facility] Influenza Virus Vaccine 2010-03-03 00:00:00 Completed [facility] HPV 2010-03-03 00:00:00 Completed [facility] Influenza Virus Vaccine 2010-03-03 00:00:00 Completed [facility] HPV 2010-03-03 00:00:00 Completed [facility] HPV 2010-03-03 00:00:00 Completed [facility] Influenza Virus Vaccine 2010-03-03 00:00:00 Completed [facility] Influenza Virus Vaccine 2010-03-03 00:00:00 Completed [facility] HPV 2010-03-03 00:00:00 Completed [facility] Influenza Virus Vaccine 2010-03-03 00:00:00 Completed [facility] HPV 2010-03-03 00:00:00 Completed [facility] Influenza Virus Vaccine 2010-03-03 00:00:00 Completed [facility] HPV 2010-03-03 00:00:00 Completed [facility] Influenza Virus Vaccine 2010-03-03 00:00:00 Completed [facility] HPV 2010-03-03 00:00:00 Completed [facility] Influenza Virus Vaccine 2010-03-03 00:00:00 Completed [facility] HPV 2010-03-03 00:00:00 Completed [facility] Influenza Virus Vaccine 2010-03-03 00:00:00 Completed [facility] Varicella (varivax)(chicken pox) 2008-11-15 00:00:00 Completed [facility] Varicella (varivax)(chicken pox) 2008-11-15 00:00:00 Completed [facility] Varicella (varivax)(chicken pox) 2008-11-15 00:00:00 Completed [facility] Varicella (varivax)(chicken pox) 2008-11-15 00:00:00 Completed [facility] Varicella (varivax)(chicken pox) 2008-11-15 00:00:00 Completed [facility] Varicella (varivax)(chicken pox) 2008-11-15 00:00:00 Completed [facility] Varicella (varivax)(chicken pox) 2008-11-15 00:00:00 Completed [facility] Varicella (varivax)(chicken pox) 2008-11-15 00:00:00 Completed [facility] Varicella (varivax)(chicken pox) 2008-11-15 00:00:00 Completed [facility] Varicella (varivax)(chicken pox) 2008-11-15 00:00:00 Completed [facility] Varicella (varivax)(chicken pox) 2008-11-15 00:00:00 Completed [facility] Varicella (varivax)(chicken pox) 2008-11-15 00:00:00 Completed [facility] Varicella (varivax)(chicken pox) 2008-11-15 00:00:00 Completed [facility] Varicella (varivax)(chicken pox) 2008-11-15 00:00:00 Completed [facility] Varicella (varivax)(chicken pox) 2008-11-15 00:00:00 Completed [facility] Varicella (varivax)(chicken pox) 2008-11-15 00:00:00 Completed [facility] Varicella (varivax)(chicken pox) 2008-11-15 00:00:00 Completed [facility] Varicella (varivax)(chicken pox) 2008-11-15 00:00:00 Completed [facility] Varicella (varivax)(chicken pox) 2008-11-15 00:00:00 Completed [facility] Varicella (varivax)(chicken pox) 2008-11-15 00:00:00 Completed [facility] Varicella (varivax)(chicken pox) 2008-11-15 00:00:00 Completed [facility] Varicella (varivax)(chicken pox) 2008-11-15 00:00:00 Completed [facility] Varicella (varivax)(chicken pox) 2008-11-15 00:00:00 Completed [facility] Varicella (varivax)(chicken pox) 2008-11-15 00:00:00 Completed [facility] Varicella (varivax)(chicken pox) 2008-11-15 00:00:00 Completed [facility] Varicella (varivax)(chicken pox) 2008-11-15 00:00:00 Completed [facility] Varicella (varivax)(chicken pox) 2008-11-15 00:00:00 Completed [facility] Varicella (varivax)(chicken pox) 2008-11-15 00:00:00 Completed [facility] Varicella (varivax)(chicken pox) 2008-11-15 00:00:00 Completed [facility] Varicella (varivax)(chicken pox) 2008-11-15 00:00:00 Completed [facility] Varicella (varivax)(chicken pox) 2008-11-15 00:00:00 Completed [facility] Varicella (varivax)(chicken pox) 2008-11-15 00:00:00 Completed [facility] Varicella (varivax)(chicken pox) 2008-11-15 00:00:00 Completed [facility] Varicella (varivax)(chicken pox) 2008-11-15 00:00:00 Completed [facility] Varicella (varivax)(chicken pox) 2008-11-15 00:00:00 Completed [facility] Varicella (varivax)(chicken pox) 2008-11-15 00:00:00 Completed [facility] Varicella (varivax)(chicken pox) 2008-11-15 00:00:00 Completed [facility] Varicella (varivax)(chicken pox) 2008-11-15 00:00:00 Completed [facility] Varicella (varivax)(chicken pox) 2008-11-15 00:00:00 Completed [facility] Varicella (varivax)(chicken pox) 2008-11-15 00:00:00 Completed [facility] Varicella (varivax)(chicken pox) 2008-11-15 00:00:00 Completed [facility] Varicella (varivax)(chicken pox) 2008-11-15 00:00:00 Completed [facility] Varicella (varivax)(chicken pox) 2008-11-15 00:00:00 Completed [facility] Varicella (varivax)(chicken pox) 2008-11-15 00:00:00 Completed [facility] Varicella (varivax)(chicken pox) 2008-11-15 00:00:00 Completed [facility] Varicella (varivax)(chicken pox) 2008-11-15 00:00:00 Completed [facility] Varicella (varivax)(chicken pox) 2008-11-15 00:00:00 Completed [facility] Varicella (varivax)(chicken pox) 2008-11-15 00:00:00 Completed [facility] Varicella (varivax)(chicken pox) 2008-11-15 00:00:00 Completed [facility] Varicella (varivax)(chicken pox) 2008-11-15 00:00:00 Completed [facility] Influenza Virus Vaccine 2007-06-02 00:00:00 Completed [facility] Influenza Virus Vaccine 2007-06-02 00:00:00 Completed [facility] Influenza Virus Vaccine 2007-06-02 00:00:00 Completed [facility] Influenza Virus Vaccine 2007-06-02 00:00:00 Completed [facility] Influenza Virus Vaccine 2007-06-02 00:00:00 Completed [facility] Influenza Virus Vaccine 2007-06-02 00:00:00 Completed [facility] Influenza Virus Vaccine 2007-06-02 00:00:00 Completed [facility] Influenza Virus Vaccine 2007-06-02 00:00:00 Completed [facility] Influenza Virus Vaccine 2007-06-02 00:00:00 Completed [facility] Influenza Virus Vaccine 2007-06-02 00:00:00 Completed [facility] Influenza Virus Vaccine 2007-06-02 00:00:00 Completed [facility] Influenza Virus Vaccine 2007-06-02 00:00:00 Completed [facility] Influenza Virus Vaccine 2007-06-02 00:00:00 Completed [facility] Influenza Virus Vaccine 2007-06-02 00:00:00 Completed [facility] Influenza Virus Vaccine 2007-06-02 00:00:00 Completed [facility] Influenza Virus Vaccine 2007-06-02 00:00:00 Completed [facility] Influenza Virus Vaccine 2007-06-02 00:00:00 Completed [facility] Influenza Virus Vaccine 2007-06-02 00:00:00 Completed [facility] Influenza Virus Vaccine 2007-06-02 00:00:00 Completed [facility] Influenza Virus Vaccine 2007-06-02 00:00:00 Completed [facility] Influenza Virus Vaccine 2007-06-02 00:00:00 Completed [facility] Influenza Virus Vaccine 2007-06-02 00:00:00 Completed [facility] Influenza Virus Vaccine 2007-06-02 00:00:00 Completed [facility] Influenza Virus Vaccine 2007-06-02 00:00:00 Completed [facility] Influenza Virus Vaccine 2007-06-02 00:00:00 Completed [facility] Influenza Virus Vaccine 2007-06-02 00:00:00 Completed [facility] Influenza Virus Vaccine 2007-06-02 00:00:00 Completed [facility] Influenza Virus Vaccine 2007-06-02 00:00:00 Completed [facility] Influenza Virus Vaccine 2007-06-02 00:00:00 Completed [facility] Influenza Virus Vaccine 2007-06-02 00:00:00 Completed [facility] Influenza Virus Vaccine 2007-06-02 00:00:00 Completed [facility] Influenza Virus Vaccine 2007-06-02 00:00:00 Completed [facility] Influenza Virus Vaccine 2007-06-02 00:00:00 Completed [facility] Influenza Virus Vaccine 2007-06-02 00:00:00 Completed [facility] Influenza Virus Vaccine 2007-06-02 00:00:00 Completed [facility] Influenza Virus Vaccine 2007-06-02 00:00:00 Completed [facility] Influenza Virus Vaccine 2007-06-02 00:00:00 Completed [facility] Influenza Virus Vaccine 2007-06-02 00:00:00 Completed [facility] Influenza Virus Vaccine 2007-06-02 00:00:00 Completed [facility] Influenza Virus Vaccine 2007-06-02 00:00:00 Completed [facility] Influenza Virus Vaccine 2007-06-02 00:00:00 Completed [facility] Influenza Virus Vaccine 2007-06-02 00:00:00 Completed [facility] Influenza Virus Vaccine 2007-06-02 00:00:00 Completed [facility] Influenza Virus Vaccine 2007-06-02 00:00:00 Completed [facility] Influenza Virus Vaccine 2007-06-02 00:00:00 Completed [facility] Influenza Virus Vaccine 2007-06-02 00:00:00 Completed [facility] Influenza Virus Vaccine 2007-06-02 00:00:00 Completed [facility] Influenza Virus Vaccine 2007-06-02 00:00:00 Completed [facility] Influenza Virus Vaccine 2007-06-02 00:00:00 Completed [facility] Influenza Virus Vaccine 2007-06-02 00:00:00 Completed [facility] HEPATITIS A 2005-11-09 00:00:00 Completed [facility] HEPATITIS A 2005-11-09 00:00:00 Completed [facility] HEPATITIS A 2005-11-09 00:00:00 Completed [facility] HEPATITIS A 2005-11-09 00:00:00 Completed [facility] HEPATITIS A 2005-11-09 00:00:00 Completed [facility] HEPATITIS A 2005-11-09 00:00:00 Completed [facility] HEPATITIS A 2005-11-09 00:00:00 Completed [facility] HEPATITIS A 2005-11-09 00:00:00 Completed [facility] HEPATITIS A 2005-11-09 00:00:00 Completed [facility] HEPATITIS A 2005-11-09 00:00:00 Completed [facility] HEPATITIS A 2005-11-09 00:00:00 Completed [facility] HEPATITIS A 2005-11-09 00:00:00 Completed [facility] HEPATITIS A 2005-11-09 00:00:00 Completed [facility] HEPATITIS A 2005-11-09 00:00:00 Completed [facility] HEPATITIS A 2005-11-09 00:00:00 Completed [facility] HEPATITIS A 2005-11-09 00:00:00 Completed [facility] HEPATITIS A 2005-11-09 00:00:00 Completed [facility] HEPATITIS A 2005-11-09 00:00:00 Completed [facility] HEPATITIS A 2005-11-09 00:00:00 Completed [facility] HEPATITIS A 2005-11-09 00:00:00 Completed [facility] HEPATITIS A 2005-11-09 00:00:00 Completed [facility] HEPATITIS A 2005-11-09 00:00:00 Completed [facility] HEPATITIS A 2005-11-09 00:00:00 Completed [facility] HEPATITIS A 2005-11-09 00:00:00 Completed [facility] HEPATITIS A 2005-11-09 00:00:00 Completed [facility] HEPATITIS A 2005-11-09 00:00:00 Completed [facility] HEPATITIS A 2005-11-09 00:00:00 Completed [facility] HEPATITIS A 2005-11-09 00:00:00 Completed [facility] HEPATITIS A 2005-11-09 00:00:00 Completed [facility] HEPATITIS A 2005-11-09 00:00:00 Completed [facility] HEPATITIS A 2005-11-09 00:00:00 Completed [facility] HEPATITIS A 2005-11-09 00:00:00 Completed [facility] HEPATITIS A 2005-11-09 00:00:00 Completed [facility] HEPATITIS A 2005-11-09 00:00:00 Completed [facility] HEPATITIS A 2005-11-09 00:00:00 Completed [facility] HEPATITIS A 2005-11-09 00:00:00 Completed [facility] HEPATITIS A 2005-11-09 00:00:00 Completed [facility] HEPATITIS A 2005-11-09 00:00:00 Completed [facility] HEPATITIS A 2005-11-09 00:00:00 Completed [facility] HEPATITIS A 2005-11-09 00:00:00 Completed [facility] HEPATITIS A 2005-11-09 00:00:00 Completed [facility] HEPATITIS A 2005-11-09 00:00:00 Completed [facility] HEPATITIS A 2005-11-09 00:00:00 Completed [facility] HEPATITIS A 2005-11-09 00:00:00 Completed [facility] HEPATITIS A 2005-11-09 00:00:00 Completed [facility] HEPATITIS A 2005-11-09 00:00:00 Completed [facility] HEPATITIS A 2005-11-09 00:00:00 Completed [facility] HEPATITIS A 2005-11-09 00:00:00 Completed [facility] HEPATITIS A 2005-11-09 00:00:00 Completed [facility] HEPATITIS A 2005-11-09 00:00:00 Completed [facility] MMR 2005-06-21 00:00:00 Completed [facility] DTAP 2005-06-21 00:00:00 Completed [facility] MMR 2005-06-21 00:00:00 Completed [facility] Polio (IPV/OPV) 2005-06-21 00:00:00 Completed [facility] Varicella (varivax)(chicken pox) 2005-06-21 00:00:00 Completed [facility] Polio (IPV/OPV) 2005-06-21 00:00:00 Completed [facility] Varicella (varivax)(chicken pox) 2005-06-21 00:00:00 Completed [facility] DTAP 2005-06-21 00:00:00 Completed [facility] MMR 2005-06-21 00:00:00 Completed [facility] Polio (IPV/OPV) 2005-06-21 00:00:00 Completed [facility] Varicella (varivax)(chicken pox) 2005-06-21 00:00:00 Completed [facility] DTAP 2005-06-21 00:00:00 Completed [facility] MMR 2005-06-21 00:00:00 Completed [facility] Polio (IPV/OPV) 2005-06-21 00:00:00 Completed [facility] Varicella (varivax)(chicken pox) 2005-06-21 00:00:00 Completed [facility] DTAP 2005-06-21 00:00:00 Completed [facility] MMR 2005-06-21 00:00:00 Completed [facility] Polio (IPV/OPV) 2005-06-21 00:00:00 Completed [facility] Varicella (varivax)(chicken pox) 2005-06-21 00:00:00 Completed [facility] DTAP 2005-06-21 00:00:00 Completed [facility] MMR 2005-06-21 00:00:00 Completed [facility] Polio (IPV/OPV) 2005-06-21 00:00:00 Completed [facility] Varicella (varivax)(chicken pox) 2005-06-21 00:00:00 Completed [facility] DTAP 2005-06-21 00:00:00 Completed [facility] MMR 2005-06-21 00:00:00 Completed [facility] Polio (IPV/OPV) 2005-06-21 00:00:00 Completed [facility] Varicella (varivax)(chicken pox) 2005-06-21 00:00:00 Completed [facility] DTAP 2005-06-21 00:00:00 Completed [facility] MMR 2005-06-21 00:00:00 Completed [facility] Polio (IPV/OPV) 2005-06-21 00:00:00 Completed [facility] Varicella (varivax)(chicken pox) 2005-06-21 00:00:00 Completed [facility] DTAP 2005-06-21 00:00:00 Completed [facility] DTAP 2005-06-21 00:00:00 Completed [facility] MMR 2005-06-21 00:00:00 Completed [facility] Polio (IPV/OPV) 2005-06-21 00:00:00 Completed [facility] Varicella (varivax)(chicken pox) 2005-06-21 00:00:00 Completed [facility] DTAP 2005-06-21 00:00:00 Completed [facility] MMR 2005-06-21 00:00:00 Completed [facility] Polio (IPV/OPV) 2005-06-21 00:00:00 Completed [facility] Varicella (varivax)(chicken pox) 2005-06-21 00:00:00 Completed [facility] DTAP 2005-06-21 00:00:00 Completed [facility] MMR 2005-06-21 00:00:00 Completed [facility] Polio (IPV/OPV) 2005-06-21 00:00:00 Completed [facility] Varicella (varivax)(chicken pox) 2005-06-21 00:00:00 Completed [facility] DTAP 2005-06-21 00:00:00 Completed [facility] MMR 2005-06-21 00:00:00 Completed [facility] MMR 2005-06-21 00:00:00 Completed [facility] Polio (IPV/OPV) 2005-06-21 00:00:00 Completed [facility] Varicella (varivax)(chicken pox) 2005-06-21 00:00:00 Completed [facility] DTAP 2005-06-21 00:00:00 Completed [facility] Polio (IPV/OPV) 2005-06-21 00:00:00 Completed [facility] MMR 2005-06-21 00:00:00 Completed [facility] Polio (IPV/OPV) 2005-06-21 00:00:00 Completed [facility] Varicella (varivax)(chicken pox) 2005-06-21 00:00:00 Completed [facility] Varicella (varivax)(chicken pox) 2005-06-21 00:00:00 Completed [facility] DTAP 2005-06-21 00:00:00 Completed [facility] MMR 2005-06-21 00:00:00 Completed [facility] Polio (IPV/OPV) 2005-06-21 00:00:00 Completed [facility] Varicella (varivax)(chicken pox) 2005-06-21 00:00:00 Completed [facility] DTAP 2005-06-21 00:00:00 Completed [facility] MMR 2005-06-21 00:00:00 Completed [facility] Polio (IPV/OPV) 2005-06-21 00:00:00 Completed [facility] Varicella (varivax)(chicken pox) 2005-06-21 00:00:00 Completed [facility] DTAP 2005-06-21 00:00:00 Completed [facility] MMR 2005-06-21 00:00:00 Completed [facility] Polio (IPV/OPV) 2005-06-21 00:00:00 Completed [facility] Varicella (varivax)(chicken pox) 2005-06-21 00:00:00 Completed [facility] DTAP 2005-06-21 00:00:00 Completed [facility] MMR 2005-06-21 00:00:00 Completed [facility] Polio (IPV/OPV) 2005-06-21 00:00:00 Completed [facility] Varicella (varivax)(chicken pox) 2005-06-21 00:00:00 Completed [facility] DTAP 2005-06-21 00:00:00 Completed [facility] DTAP 2005-06-21 00:00:00 Completed [facility] MMR 2005-06-21 00:00:00 Completed [facility] Polio (IPV/OPV) 2005-06-21 00:00:00 Completed [facility] Varicella (varivax)(chicken pox) 2005-06-21 00:00:00 Completed [facility] DTAP 2005-06-21 00:00:00 Completed [facility] MMR 2005-06-21 00:00:00 Completed [facility] Polio (IPV/OPV) 2005-06-21 00:00:00 Completed [facility] Varicella (varivax)(chicken pox) 2005-06-21 00:00:00 Completed [facility] DTAP 2005-06-21 00:00:00 Completed [facility] MMR 2005-06-21 00:00:00 Completed [facility] Polio (IPV/OPV) 2005-06-21 00:00:00 Completed [facility] Varicella (varivax)(chicken pox) 2005-06-21 00:00:00 Completed [facility] MMR 2005-06-21 00:00:00 Completed [facility] DTAP 2005-06-21 00:00:00 Completed [facility] MMR 2005-06-21 00:00:00 Completed [facility] Polio (IPV/OPV) 2005-06-21 00:00:00 Completed [facility] Varicella (varivax)(chicken pox) 2005-06-21 00:00:00 Completed [facility] DTAP 2005-06-21 00:00:00 Completed [facility] Polio (IPV/OPV) 2005-06-21 00:00:00 Completed [facility] Varicella (varivax)(chicken pox) 2005-06-21 00:00:00 Completed [facility] MMR 2005-06-21 00:00:00 Completed [facility] Polio (IPV/OPV) 2005-06-21 00:00:00 Completed [facility] Varicella (varivax)(chicken pox) 2005-06-21 00:00:00 Completed [facility] DTAP 2005-06-21 00:00:00 Completed [facility] MMR 2005-06-21 00:00:00 Completed [facility] Polio (IPV/OPV) 2005-06-21 00:00:00 Completed [facility] Varicella (varivax)(chicken pox) 2005-06-21 00:00:00 Completed [facility] DTAP 2005-06-21 00:00:00 Completed [facility] MMR 2005-06-21 00:00:00 Completed [facility] Polio (IPV/OPV) 2005-06-21 00:00:00 Completed [facility] Varicella (varivax)(chicken pox) 2005-06-21 00:00:00 Completed [facility] DTAP 2005-06-21 00:00:00 Completed [facility] MMR 2005-06-21 00:00:00 Completed [facility] Polio (IPV/OPV) 2005-06-21 00:00:00 Completed [facility] Varicella (varivax)(chicken pox) 2005-06-21 00:00:00 Completed [facility] DTAP 2005-06-21 00:00:00 Completed [facility] MMR 2005-06-21 00:00:00 Completed [facility] DTAP 2005-06-21 00:00:00 Completed [facility] Polio (IPV/OPV) 2005-06-21 00:00:00 Completed [facility] Varicella (varivax)(chicken pox) 2005-06-21 00:00:00 Completed [facility] DTAP 2005-06-21 00:00:00 Completed [facility] MMR 2005-06-21 00:00:00 Completed [facility] Polio (IPV/OPV) 2005-06-21 00:00:00 Completed [facility] Varicella (varivax)(chicken pox) 2005-06-21 00:00:00 Completed [facility] MMR 2005-06-21 00:00:00 Completed [facility] Polio (IPV/OPV) 2005-06-21 00:00:00 Completed [facility] Varicella (varivax)(chicken pox) 2005-06-21 00:00:00 Completed [facility] DTAP 2005-06-21 00:00:00 Completed [facility] MMR 2005-06-21 00:00:00 Completed [facility] Polio (IPV/OPV) 2005-06-21 00:00:00 Completed [facility] Varicella (varivax)(chicken pox) 2005-06-21 00:00:00 Completed [facility] DTAP 2005-06-21 00:00:00 Completed [facility] MMR 2005-06-21 00:00:00 Completed [facility] Polio (IPV/OPV) 2005-06-21 00:00:00 Completed [facility] Varicella (varivax)(chicken pox) 2005-06-21 00:00:00 Completed [facility] DTAP 2005-06-21 00:00:00 Completed [facility] MMR 2005-06-21 00:00:00 Completed [facility] Polio (IPV/OPV) 2005-06-21 00:00:00 Completed [facility] Varicella (varivax)(chicken pox) 2005-06-21 00:00:00 Completed [facility] DTAP 2005-06-21 00:00:00 Completed [facility] MMR 2005-06-21 00:00:00 Completed [facility] Polio (IPV/OPV) 2005-06-21 00:00:00 Completed [facility] Varicella (varivax)(chicken pox) 2005-06-21 00:00:00 Completed [facility] DTAP 2005-06-21 00:00:00 Completed [facility] MMR 2005-06-21 00:00:00 Completed [facility] Polio (IPV/OPV) 2005-06-21 00:00:00 Completed [facility] Varicella (varivax)(chicken pox) 2005-06-21 00:00:00 Completed [facility] DTAP 2005-06-21 00:00:00 Completed [facility] MMR 2005-06-21 00:00:00 Completed [facility] Polio (IPV/OPV) 2005-06-21 00:00:00 Completed [facility] Varicella (varivax)(chicken pox) 2005-06-21 00:00:00 Completed [facility] DTAP 2005-06-21 00:00:00 Completed [facility] MMR 2005-06-21 00:00:00 Completed [facility] Polio (IPV/OPV) 2005-06-21 00:00:00 Completed [facility] Varicella (varivax)(chicken pox) 2005-06-21 00:00:00 Completed [facility] DTAP 2005-06-21 00:00:00 Completed [facility] MMR 2005-06-21 00:00:00 Completed [facility] Polio (IPV/OPV) 2005-06-21 00:00:00 Completed [facility] Varicella (varivax)(chicken pox) 2005-06-21 00:00:00 Completed [facility] DTAP 2005-06-21 00:00:00 Completed [facility] MMR 2005-06-21 00:00:00 Completed [facility] Polio (IPV/OPV) 2005-06-21 00:00:00 Completed [facility] Varicella (varivax)(chicken pox) 2005-06-21 00:00:00 Completed [facility] DTAP 2005-06-21 00:00:00 Completed [facility] MMR 2005-06-21 00:00:00 Completed [facility] Polio (IPV/OPV) 2005-06-21 00:00:00 Completed [facility] Varicella (varivax)(chicken pox) 2005-06-21 00:00:00 Completed [facility] DTAP 2005-06-21 00:00:00 Completed [facility] MMR 2005-06-21 00:00:00 Completed [facility] Polio (IPV/OPV) 2005-06-21 00:00:00 Completed [facility] Varicella (varivax)(chicken pox) 2005-06-21 00:00:00 Completed [facility] DTAP 2005-06-21 00:00:00 Completed [facility] MMR 2005-06-21 00:00:00 Completed [facility] Polio (IPV/OPV) 2005-06-21 00:00:00 Completed [facility] Varicella (varivax)(chicken pox) 2005-06-21 00:00:00 Completed [facility] DTAP 2005-06-21 00:00:00 Completed [facility] MMR 2005-06-21 00:00:00 Completed [facility] Polio (IPV/OPV) 2005-06-21 00:00:00 Completed [facility] Varicella (varivax)(chicken pox) 2005-06-21 00:00:00 Completed [facility] DTAP 2005-06-21 00:00:00 Completed [facility] MMR 2005-06-21 00:00:00 Completed [facility] Polio (IPV/OPV) 2005-06-21 00:00:00 Completed [facility] Varicella (varivax)(chicken pox) 2005-06-21 00:00:00 Completed [facility] DTAP 2005-06-21 00:00:00 Completed [facility] MMR 2005-06-21 00:00:00 Completed [facility] Polio (IPV/OPV) 2005-06-21 00:00:00 Completed [facility] Varicella (varivax)(chicken pox) 2005-06-21 00:00:00 Completed [facility] DTAP 2005-06-21 00:00:00 Completed [facility] MMR 2005-06-21 00:00:00 Completed [facility] Polio (IPV/OPV) 2005-06-21 00:00:00 Completed [facility] Varicella (varivax)(chicken pox) 2005-06-21 00:00:00 Completed [facility] DTAP 2005-06-21 00:00:00 Completed [facility] DTAP 2005-06-21 00:00:00 Completed [facility] MMR 2005-06-21 00:00:00 Completed [facility] Polio (IPV/OPV) 2005-06-21 00:00:00 Completed [facility] Varicella (varivax)(chicken pox) 2005-06-21 00:00:00 Completed [facility] DTAP 2005-06-21 00:00:00 Completed [facility] MMR 2005-06-21 00:00:00 Completed [facility] Polio (IPV/OPV) 2005-06-21 00:00:00 Completed [facility] Varicella (varivax)(chicken pox) 2005-06-21 00:00:00 Completed [facility] DTAP 2005-06-21 00:00:00 Completed [facility] MMR 2005-06-21 00:00:00 Completed [facility] Polio (IPV/OPV) 2005-06-21 00:00:00 Completed [facility] Varicella (varivax)(chicken pox) 2005-06-21 00:00:00 Completed [facility] DTAP 2005-06-21 00:00:00 Completed [facility] MMR 2005-06-21 00:00:00 Completed [facility] Polio (IPV/OPV) 2005-06-21 00:00:00 Completed [facility] Varicella (varivax)(chicken pox) 2005-06-21 00:00:00 Completed [facility] HEPATITIS A 2005-03-04 00:00:00 Completed [facility] HEPATITIS A 2005-03-04 00:00:00 Completed [facility] HEPATITIS A 2005-03-04 00:00:00 Completed [facility] HEPATITIS A 2005-03-04 00:00:00 Completed [facility] HEPATITIS A 2005-03-04 00:00:00 Completed [facility] HEPATITIS A 2005-03-04 00:00:00 Completed [facility] HEPATITIS A 2005-03-04 00:00:00 Completed [facility] HEPATITIS A 2005-03-04 00:00:00 Completed [facility] HEPATITIS A 2005-03-04 00:00:00 Completed [facility] HEPATITIS A 2005-03-04 00:00:00 Completed [facility] HEPATITIS A 2005-03-04 00:00:00 Completed [facility] HEPATITIS A 2005-03-04 00:00:00 Completed [facility] HEPATITIS A 2005-03-04 00:00:00 Completed [facility] HEPATITIS A 2005-03-04 00:00:00 Completed [facility] HEPATITIS A 2005-03-04 00:00:00 Completed [facility] HEPATITIS A 2005-03-04 00:00:00 Completed [facility] HEPATITIS A 2005-03-04 00:00:00 Completed [facility] HEPATITIS A 2005-03-04 00:00:00 Completed [facility] HEPATITIS A 2005-03-04 00:00:00 Completed [facility] HEPATITIS A 2005-03-04 00:00:00 Completed [facility] HEPATITIS A 2005-03-04 00:00:00 Completed [facility] HEPATITIS A 2005-03-04 00:00:00 Completed [facility] HEPATITIS A 2005-03-04 00:00:00 Completed [facility] HEPATITIS A 2005-03-04 00:00:00 Completed [facility] HEPATITIS A 2005-03-04 00:00:00 Completed [facility] HEPATITIS A 2005-03-04 00:00:00 Completed [facility] HEPATITIS A 2005-03-04 00:00:00 Completed [facility] HEPATITIS A 2005-03-04 00:00:00 Completed [facility] HEPATITIS A 2005-03-04 00:00:00 Completed [facility] HEPATITIS A 2005-03-04 00:00:00 Completed [facility] HEPATITIS A 2005-03-04 00:00:00 Completed [facility] HEPATITIS A 2005-03-04 00:00:00 Completed [facility] HEPATITIS A 2005-03-04 00:00:00 Completed [facility] HEPATITIS A 2005-03-04 00:00:00 Completed [facility] HEPATITIS A 2005-03-04 00:00:00 Completed [facility] HEPATITIS A 2005-03-04 00:00:00 Completed [facility] HEPATITIS A 2005-03-04 00:00:00 Completed [facility] HEPATITIS A 2005-03-04 00:00:00 Completed [facility] HEPATITIS A 2005-03-04 00:00:00 Completed [facility] HEPATITIS A 2005-03-04 00:00:00 Completed [facility] HEPATITIS A 2005-03-04 00:00:00 Completed [facility] HEPATITIS A 2005-03-04 00:00:00 Completed [facility] HEPATITIS A 2005-03-04 00:00:00 Completed [facility] HEPATITIS A 2005-03-04 00:00:00 Completed [facility] HEPATITIS A 2005-03-04 00:00:00 Completed [facility] HEPATITIS A 2005-03-04 00:00:00 Completed [facility] HEPATITIS A 2005-03-04 00:00:00 Completed [facility] HEPATITIS A 2005-03-04 00:00:00 Completed [facility] HEPATITIS A 2005-03-04 00:00:00 Completed [facility] HEPATITIS A 2005-03-04 00:00:00 Completed [facility] DTAP 2002-05-29 00:00:00 Completed [facility] HIB 4 Dose Schedule 2002-05-29 00:00:00 Completed [facility] Pneumococcal 7 Conjugate, PCV7 (Prevnar7) 2002-05-29 00:00:00 Completed [facility] DTAP 2002-05-29 00:00:00 Completed [facility] HIB 4 Dose Schedule 2002-05-29 00:00:00 Completed [facility] Pneumococcal 7 Conjugate, PCV7 (Prevnar7) 2002-05-29 00:00:00 Completed [facility] Pneumococcal 7 Conjugate, PCV7 (Prevnar7) 2002-05-29 00:00:00 Completed [facility] DTAP 2002-05-29 00:00:00 Completed [facility] HIB 4 Dose Schedule 2002-05-29 00:00:00 Completed [facility] Pneumococcal 7 Conjugate, PCV7 (Prevnar7) 2002-05-29 00:00:00 Completed [facility] DTAP 2002-05-29 00:00:00 Completed [facility] HIB 4 Dose Schedule 2002-05-29 00:00:00 Completed [facility] Pneumococcal 7 Conjugate, PCV7 (Prevnar7) 2002-05-29 00:00:00 Completed [facility] DTAP 2002-05-29 00:00:00 Completed [facility] HIB 4 Dose Schedule 2002-05-29 00:00:00 Completed [facility] Pneumococcal 7 Conjugate, PCV7 (Prevnar7) 2002-05-29 00:00:00 Completed [facility] DTAP 2002-05-29 00:00:00 Completed [facility] HIB 4 Dose Schedule 2002-05-29 00:00:00 Completed [facility] Pneumococcal 7 Conjugate, PCV7 (Prevnar7) 2002-05-29 00:00:00 Completed [facility] DTAP 2002-05-29 00:00:00 Completed [facility] HIB 4 Dose Schedule 2002-05-29 00:00:00 Completed [facility] DTAP 2002-05-29 00:00:00 Completed [facility] Pneumococcal 7 Conjugate, PCV7 (Prevnar7) 2002-05-29 00:00:00 Completed [facility] DTAP 2002-05-29 00:00:00 Completed [facility] HIB 4 Dose Schedule 2002-05-29 00:00:00 Completed [facility] Pneumococcal 7 Conjugate, PCV7 (Prevnar7) 2002-05-29 00:00:00 Completed [facility] HIB 4 Dose Schedule 2002-05-29 00:00:00 Completed [facility] DTAP 2002-05-29 00:00:00 Completed [facility] HIB 4 Dose Schedule 2002-05-29 00:00:00 Completed [facility] Pneumococcal 7 Conjugate, PCV7 (Prevnar7) 2002-05-29 00:00:00 Completed [facility] DTAP 2002-05-29 00:00:00 Completed [facility] HIB 4 Dose Schedule 2002-05-29 00:00:00 Completed [facility] Pneumococcal 7 Conjugate, PCV7 (Prevnar7) 2002-05-29 00:00:00 Completed [facility] DTAP 2002-05-29 00:00:00 Completed [facility] HIB 4 Dose Schedule 2002-05-29 00:00:00 Completed [facility] Pneumococcal 7 Conjugate, PCV7 (Prevnar7) 2002-05-29 00:00:00 Completed [facility] DTAP 2002-05-29 00:00:00 Completed [facility] HIB 4 Dose Schedule 2002-05-29 00:00:00 Completed [facility] Pneumococcal 7 Conjugate, PCV7 (Prevnar7) 2002-05-29 00:00:00 Completed [facility] DTAP 2002-05-29 00:00:00 Completed [facility] Pneumococcal 7 Conjugate, PCV7 (Prevnar7) 2002-05-29 00:00:00 Completed [facility] HIB 4 Dose Schedule 2002-05-29 00:00:00 Completed [facility] Pneumococcal 7 Conjugate, PCV7 (Prevnar7) 2002-05-29 00:00:00 Completed [facility] DTAP 2002-05-29 00:00:00 Completed [facility] HIB 4 Dose Schedule 2002-05-29 00:00:00 Completed [facility] Pneumococcal 7 Conjugate, PCV7 (Prevnar7) 2002-05-29 00:00:00 Completed [facility] DTAP 2002-05-29 00:00:00 Completed [facility] HIB 4 Dose Schedule 2002-05-29 00:00:00 Completed [facility] Pneumococcal 7 Conjugate, PCV7 (Prevnar7) 2002-05-29 00:00:00 Completed [facility] DTAP 2002-05-29 00:00:00 Completed [facility] HIB 4 Dose Schedule 2002-05-29 00:00:00 Completed [facility] DTAP 2002-05-29 00:00:00 Completed [facility] Pneumococcal 7 Conjugate, PCV7 (Prevnar7) 2002-05-29 00:00:00 Completed [facility] DTAP 2002-05-29 00:00:00 Completed [facility] HIB 4 Dose Schedule 2002-05-29 00:00:00 Completed [facility] HIB 4 Dose Schedule 2002-05-29 00:00:00 Completed [facility] Pneumococcal 7 Conjugate, PCV7 (Prevnar7) 2002-05-29 00:00:00 Completed [facility] DTAP 2002-05-29 00:00:00 Completed [facility] HIB 4 Dose Schedule 2002-05-29 00:00:00 Completed [facility] Pneumococcal 7 Conjugate, PCV7 (Prevnar7) 2002-05-29 00:00:00 Completed [facility] DTAP 2002-05-29 00:00:00 Completed [facility] HIB 4 Dose Schedule 2002-05-29 00:00:00 Completed [facility] Pneumococcal 7 Conjugate, PCV7 (Prevnar7) 2002-05-29 00:00:00 Completed [facility] DTAP 2002-05-29 00:00:00 Completed [facility] HIB 4 Dose Schedule 2002-05-29 00:00:00 Completed [facility] Pneumococcal 7 Conjugate, PCV7 (Prevnar7) 2002-05-29 00:00:00 Completed [facility] DTAP 2002-05-29 00:00:00 Completed [facility] HIB 4 Dose Schedule 2002-05-29 00:00:00 Completed [facility] Pneumococcal 7 Conjugate, PCV7 (Prevnar7) 2002-05-29 00:00:00 Completed [facility] Pneumococcal 7 Conjugate, PCV7 (Prevnar7) 2002-05-29 00:00:00 Completed [facility] DTAP 2002-05-29 00:00:00 Completed [facility] HIB 4 Dose Schedule 2002-05-29 00:00:00 Completed [facility] Pneumococcal 7 Conjugate, PCV7 (Prevnar7) 2002-05-29 00:00:00 Completed [facility] DTAP 2002-05-29 00:00:00 Completed [facility] HIB 4 Dose Schedule 2002-05-29 00:00:00 Completed [facility] Pneumococcal 7 Conjugate, PCV7 (Prevnar7) 2002-05-29 00:00:00 Completed [facility] DTAP 2002-05-29 00:00:00 Completed [facility] HIB 4 Dose Schedule 2002-05-29 00:00:00 Completed [facility] Pneumococcal 7 Conjugate, PCV7 (Prevnar7) 2002-05-29 00:00:00 Completed [facility] DTAP 2002-05-29 00:00:00 Completed [facility] HIB 4 Dose Schedule 2002-05-29 00:00:00 Completed [facility] DTAP 2002-05-29 00:00:00 Completed [facility] Pneumococcal 7 Conjugate, PCV7 (Prevnar7) 2002-05-29 00:00:00 Completed [facility] DTAP 2002-05-29 00:00:00 Completed [facility] HIB 4 Dose Schedule 2002-05-29 00:00:00 Completed [facility] HIB 4 Dose Schedule 2002-05-29 00:00:00 Completed [facility] Pneumococcal 7 Conjugate, PCV7 (Prevnar7) 2002-05-29 00:00:00 Completed [facility] Pneumococcal 7 Conjugate, PCV7 (Prevnar7) 2002-05-29 00:00:00 Completed [facility] DTAP 2002-05-29 00:00:00 Completed [facility] HIB 4 Dose Schedule 2002-05-29 00:00:00 Completed [facility] Pneumococcal 7 Conjugate, PCV7 (Prevnar7) 2002-05-29 00:00:00 Completed [facility] DTAP 2002-05-29 00:00:00 Completed [facility] HIB 4 Dose Schedule 2002-05-29 00:00:00 Completed [facility] Pneumococcal 7 Conjugate, PCV7 (Prevnar7) 2002-05-29 00:00:00 Completed [facility] DTAP 2002-05-29 00:00:00 Completed [facility] HIB 4 Dose Schedule 2002-05-29 00:00:00 Completed [facility] Pneumococcal 7 Conjugate, PCV7 (Prevnar7) 2002-05-29 00:00:00 Completed [facility] DTAP 2002-05-29 00:00:00 Completed [facility] HIB 4 Dose Schedule 2002-05-29 00:00:00 Completed [facility] Pneumococcal 7 Conjugate, PCV7 (Prevnar7) 2002-05-29 00:00:00 Completed [facility] DTAP 2002-05-29 00:00:00 Completed [facility] HIB 4 Dose Schedule 2002-05-29 00:00:00 Completed [facility] Pneumococcal 7 Conjugate, PCV7 (Prevnar7) 2002-05-29 00:00:00 Completed [facility] DTAP 2002-05-29 00:00:00 Completed [facility] HIB 4 Dose Schedule 2002-05-29 00:00:00 Completed [facility] Pneumococcal 7 Conjugate, PCV7 (Prevnar7) 2002-05-29 00:00:00 Completed [facility] DTAP 2002-05-29 00:00:00 Completed [facility] HIB 4 Dose Schedule 2002-05-29 00:00:00 Completed [facility] Pneumococcal 7 Conjugate, PCV7 (Prevnar7) 2002-05-29 00:00:00 Completed [facility] DTAP 2002-05-29 00:00:00 Completed [facility] HIB 4 Dose Schedule 2002-05-29 00:00:00 Completed [facility] Pneumococcal 7 Conjugate, PCV7 (Prevnar7) 2002-05-29 00:00:00 Completed [facility] DTAP 2002-05-29 00:00:00 Completed [facility] HIB 4 Dose Schedule 2002-05-29 00:00:00 Completed [facility] Pneumococcal 7 Conjugate, PCV7 (Prevnar7) 2002-05-29 00:00:00 Completed [facility] DTAP 2002-05-29 00:00:00 Completed [facility] HIB 4 Dose Schedule 2002-05-29 00:00:00 Completed [facility] Pneumococcal 7 Conjugate, PCV7 (Prevnar7) 2002-05-29 00:00:00 Completed [facility] DTAP 2002-05-29 00:00:00 Completed [facility] HIB 4 Dose Schedule 2002-05-29 00:00:00 Completed [facility] Pneumococcal 7 Conjugate, PCV7 (Prevnar7) 2002-05-29 00:00:00 Completed [facility] DTAP 2002-05-29 00:00:00 Completed [facility] HIB 4 Dose Schedule 2002-05-29 00:00:00 Completed [facility] Pneumococcal 7 Conjugate, PCV7 (Prevnar7) 2002-05-29 00:00:00 Completed [facility] DTAP 2002-05-29 00:00:00 Completed [facility] HIB 4 Dose Schedule 2002-05-29 00:00:00 Completed [facility] Pneumococcal 7 Conjugate, PCV7 (Prevnar7) 2002-05-29 00:00:00 Completed [facility] DTAP 2002-05-29 00:00:00 Completed [facility] HIB 4 Dose Schedule 2002-05-29 00:00:00 Completed [facility] Pneumococcal 7 Conjugate, PCV7 (Prevnar7) 2002-05-29 00:00:00 Completed [facility] DTAP 2002-05-29 00:00:00 Completed [facility] HIB 4 Dose Schedule 2002-05-29 00:00:00 Completed [facility] Pneumococcal 7 Conjugate, PCV7 (Prevnar7) 2002-05-29 00:00:00 Completed [facility] DTAP 2002-05-29 00:00:00 Completed [facility] HIB 4 Dose Schedule 2002-05-29 00:00:00 Completed [facility] Pneumococcal 7 Conjugate, PCV7 (Prevnar7) 2002-05-29 00:00:00 Completed [facility] DTAP 2002-05-29 00:00:00 Completed [facility] DTAP 2002-05-29 00:00:00 Completed [facility] HIB 4 Dose Schedule 2002-05-29 00:00:00 Completed [facility] Pneumococcal 7 Conjugate, PCV7 (Prevnar7) 2002-05-29 00:00:00 Completed [facility] DTAP 2002-05-29 00:00:00 Completed [facility] HIB 4 Dose Schedule 2002-05-29 00:00:00 Completed [facility] HIB 4 Dose Schedule 2002-05-29 00:00:00 Completed [facility] Pneumococcal 7 Conjugate, PCV7 (Prevnar7) 2002-05-29 00:00:00 Completed [facility] DTAP 2002-05-29 00:00:00 Completed [facility] HIB 4 Dose Schedule 2002-05-29 00:00:00 Completed [facility] Pneumococcal 7 Conjugate, PCV7 (Prevnar7) 2002-05-29 00:00:00 Completed [facility] DTAP 2002-05-29 00:00:00 Completed [facility] HIB 4 Dose Schedule 2002-05-29 00:00:00 Completed [facility] Pneumococcal 7 Conjugate, PCV7 (Prevnar7) 2002-05-29 00:00:00 Completed [facility] DTAP 2002-01-19 00:00:00 Completed [facility] HIB 4 Dose Schedule 2002-01-19 00:00:00 Completed [facility] MMR 2002-01-19 00:00:00 Completed [facility] Polio (IPV/OPV) 2002-01-19 00:00:00 Completed [facility] Polio (IPV/OPV) 2002-01-19 00:00:00 Completed [facility] DTAP 2002-01-19 00:00:00 Completed [facility] HIB 4 Dose Schedule 2002-01-19 00:00:00 Completed [facility] MMR 2002-01-19 00:00:00 Completed [facility] Polio (IPV/OPV) 2002-01-19 00:00:00 Completed [facility] DTAP 2002-01-19 00:00:00 Completed [facility] HIB 4 Dose Schedule 2002-01-19 00:00:00 Completed [facility] MMR 2002-01-19 00:00:00 Completed [facility] Polio (IPV/OPV) 2002-01-19 00:00:00 Completed [facility] DTAP 2002-01-19 00:00:00 Completed [facility] HIB 4 Dose Schedule 2002-01-19 00:00:00 Completed [facility] MMR 2002-01-19 00:00:00 Completed [facility] Polio (IPV/OPV) 2002-01-19 00:00:00 Completed [facility] DTAP 2002-01-19 00:00:00 Completed [facility] HIB 4 Dose Schedule 2002-01-19 00:00:00 Completed [facility] MMR 2002-01-19 00:00:00 Completed [facility] Polio (IPV/OPV) 2002-01-19 00:00:00 Completed [facility] DTAP 2002-01-19 00:00:00 Completed [facility] HIB 4 Dose Schedule 2002-01-19 00:00:00 Completed [facility] MMR 2002-01-19 00:00:00 Completed [facility] Polio (IPV/OPV) 2002-01-19 00:00:00 Completed [facility] DTAP 2002-01-19 00:00:00 Completed [facility] HIB 4 Dose Schedule 2002-01-19 00:00:00 Completed [facility] DTAP 2002-01-19 00:00:00 Completed [facility] MMR 2002-01-19 00:00:00 Completed [facility] Polio (IPV/OPV) 2002-01-19 00:00:00 Completed [facility] DTAP 2002-01-19 00:00:00 Completed [facility] HIB 4 Dose Schedule 2002-01-19 00:00:00 Completed [facility] MMR 2002-01-19 00:00:00 Completed [facility] Polio (IPV/OPV) 2002-01-19 00:00:00 Completed [facility] HIB 4 Dose Schedule 2002-01-19 00:00:00 Completed [facility] DTAP 2002-01-19 00:00:00 Completed [facility] HIB 4 Dose Schedule 2002-01-19 00:00:00 Completed [facility] MMR 2002-01-19 00:00:00 Completed [facility] Polio (IPV/OPV) 2002-01-19 00:00:00 Completed [facility] DTAP 2002-01-19 00:00:00 Completed [facility] HIB 4 Dose Schedule 2002-01-19 00:00:00 Completed [facility] MMR 2002-01-19 00:00:00 Completed [facility] Polio (IPV/OPV) 2002-01-19 00:00:00 Completed [facility] DTAP 2002-01-19 00:00:00 Completed [facility] MMR 2002-01-19 00:00:00 Completed [facility] HIB 4 Dose Schedule 2002-01-19 00:00:00 Completed [facility] MMR 2002-01-19 00:00:00 Completed [facility] Polio (IPV/OPV) 2002-01-19 00:00:00 Completed [facility] DTAP 2002-01-19 00:00:00 Completed [facility] Polio (IPV/OPV) 2002-01-19 00:00:00 Completed [facility] HIB 4 Dose Schedule 2002-01-19 00:00:00 Completed [facility] MMR 2002-01-19 00:00:00 Completed [facility] Polio (IPV/OPV) 2002-01-19 00:00:00 Completed [facility] DTAP 2002-01-19 00:00:00 Completed [facility] HIB 4 Dose Schedule 2002-01-19 00:00:00 Completed [facility] MMR 2002-01-19 00:00:00 Completed [facility] Polio (IPV/OPV) 2002-01-19 00:00:00 Completed [facility] DTAP 2002-01-19 00:00:00 Completed [facility] HIB 4 Dose Schedule 2002-01-19 00:00:00 Completed [facility] MMR 2002-01-19 00:00:00 Completed [facility] Polio (IPV/OPV) 2002-01-19 00:00:00 Completed [facility] DTAP 2002-01-19 00:00:00 Completed [facility] HIB 4 Dose Schedule 2002-01-19 00:00:00 Completed [facility] MMR 2002-01-19 00:00:00 Completed [facility] Polio (IPV/OPV) 2002-01-19 00:00:00 Completed [facility] DTAP 2002-01-19 00:00:00 Completed [facility] DTAP 2002-01-19 00:00:00 Completed [facility] HIB 4 Dose Schedule 2002-01-19 00:00:00 Completed [facility] MMR 2002-01-19 00:00:00 Completed [facility] Polio (IPV/OPV) 2002-01-19 00:00:00 Completed [facility] DTAP 2002-01-19 00:00:00 Completed [facility] HIB 4 Dose Schedule 2002-01-19 00:00:00 Completed [facility] HIB 4 Dose Schedule 2002-01-19 00:00:00 Completed [facility] MMR 2002-01-19 00:00:00 Completed [facility] Polio (IPV/OPV) 2002-01-19 00:00:00 Completed [facility] DTAP 2002-01-19 00:00:00 Completed [facility] HIB 4 Dose Schedule 2002-01-19 00:00:00 Completed [facility] MMR 2002-01-19 00:00:00 Completed [facility] Polio (IPV/OPV) 2002-01-19 00:00:00 Completed [facility] DTAP 2002-01-19 00:00:00 Completed [facility] HIB 4 Dose Schedule 2002-01-19 00:00:00 Completed [facility] MMR 2002-01-19 00:00:00 Completed [facility] Polio (IPV/OPV) 2002-01-19 00:00:00 Completed [facility] MMR 2002-01-19 00:00:00 Completed [facility] DTAP 2002-01-19 00:00:00 Completed [facility] HIB 4 Dose Schedule 2002-01-19 00:00:00 Completed [facility] MMR 2002-01-19 00:00:00 Completed [facility] Polio (IPV/OPV) 2002-01-19 00:00:00 Completed [facility] Polio (IPV/OPV) 2002-01-19 00:00:00 Completed [facility] DTAP 2002-01-19 00:00:00 Completed [facility] HIB 4 Dose Schedule 2002-01-19 00:00:00 Completed [facility] MMR 2002-01-19 00:00:00 Completed [facility] Polio (IPV/OPV) 2002-01-19 00:00:00 Completed [facility] DTAP 2002-01-19 00:00:00 Completed [facility] HIB 4 Dose Schedule 2002-01-19 00:00:00 Completed [facility] MMR 2002-01-19 00:00:00 Completed [facility] Polio (IPV/OPV) 2002-01-19 00:00:00 Completed [facility] DTAP 2002-01-19 00:00:00 Completed [facility] HIB 4 Dose Schedule 2002-01-19 00:00:00 Completed [facility] MMR 2002-01-19 00:00:00 Completed [facility] Polio (IPV/OPV) 2002-01-19 00:00:00 Completed [facility] DTAP 2002-01-19 00:00:00 Completed [facility] HIB 4 Dose Schedule 2002-01-19 00:00:00 Completed [facility] MMR 2002-01-19 00:00:00 Completed [facility] Polio (IPV/OPV) 2002-01-19 00:00:00 Completed [facility] DTAP 2002-01-19 00:00:00 Completed [facility] DTAP 2002-01-19 00:00:00 Completed [facility] HIB 4 Dose Schedule 2002-01-19 00:00:00 Completed [facility] MMR 2002-01-19 00:00:00 Completed [facility] [facility] (IPV/OPV) 2002-01-19 00:00:00 Completed [facility] DTAP 2002-01-19 00:00:00 Completed [facility] HIB 4 Dose Schedule 2002-01-19 00:00:00 Completed [facility] HIB 4 Dose Schedule 2002-01-19 00:00:00 Completed [facility] MMR 2002-01-19 00:00:00 Completed [facility] Polio (IPV/OPV) 2002-01-19 00:00:00 Completed [facility] MMR 2002-01-19 00:00:00 Completed [facility] Polio (IPV/OPV) 2002-01-19 00:00:00 Completed [facility] DTAP 2002-01-19 00:00:00 Completed [facility] HIB 4 Dose Schedule 2002-01-19 00:00:00 Completed [facility] MMR 2002-01-19 00:00:00 Completed [facility] Polio (IPV/OPV) 2002-01-19 00:00:00 Completed [facility] DTAP 2002-01-19 00:00:00 Completed [facility] HIB 4 Dose Schedule 2002-01-19 00:00:00 Completed [facility] MMR 2002-01-19 00:00:00 Completed [facility] Polio (IPV/OPV) 2002-01-19 00:00:00 Completed [facility] DTAP 2002-01-19 00:00:00 Completed [facility] HIB 4 Dose Schedule 2002-01-19 00:00:00 Completed [facility] MMR 2002-01-19 00:00:00 Completed [facility] Polio (IPV/OPV) 2002-01-19 00:00:00 Completed [facility] DTAP 2002-01-19 00:00:00 Completed [facility] HIB 4 Dose Schedule 2002-01-19 00:00:00 Completed [facility] MMR 2002-01-19 00:00:00 Completed [facility] Polio (IPV/OPV) 2002-01-19 00:00:00 Completed [facility] DTAP 2002-01-19 00:00:00 Completed [facility] HIB 4 Dose Schedule 2002-01-19 00:00:00 Completed [facility] MMR 2002-01-19 00:00:00 Completed [facility] Polio (IPV/OPV) 2002-01-19 00:00:00 Completed [facility] DTAP 2002-01-19 00:00:00 Completed [facility] HIB 4 Dose Schedule 2002-01-19 00:00:00 Completed [facility] MMR 2002-01-19 00:00:00 Completed [facility] Polio (IPV/OPV) 2002-01-19 00:00:00 Completed [facility] DTAP 2002-01-19 00:00:00 Completed [facility] HIB 4 Dose Schedule 2002-01-19 00:00:00 Completed [facility] MMR 2002-01-19 00:00:00 Completed [facility] Polio (IPV/OPV) 2002-01-19 00:00:00 Completed [facility] DTAP 2002-01-19 00:00:00 Completed [facility] HIB 4 Dose Schedule 2002-01-19 00:00:00 Completed [facility] MMR 2002-01-19 00:00:00 Completed [facility] Polio (IPV/OPV) 2002-01-19 00:00:00 Completed [facility] DTAP 2002-01-19 00:00:00 Completed [facility] HIB 4 Dose Schedule 2002-01-19 00:00:00 Completed [facility] MMR 2002-01-19 00:00:00 Completed [facility] Polio (IPV/OPV) 2002-01-19 00:00:00 Completed [facility] DTAP 2002-01-19 00:00:00 Completed [facility] HIB 4 Dose Schedule 2002-01-19 00:00:00 Completed [facility] MMR 2002-01-19 00:00:00 Completed [facility] Polio (IPV/OPV) 2002-01-19 00:00:00 Completed [facility] DTAP 2002-01-19 00:00:00 Completed [facility] HIB 4 Dose Schedule 2002-01-19 00:00:00 Completed [facility] MMR 2002-01-19 00:00:00 Completed [facility] Polio (IPV/OPV) 2002-01-19 00:00:00 Completed [facility] DTAP 2002-01-19 00:00:00 Completed [facility] HIB 4 Dose Schedule 2002-01-19 00:00:00 Completed [facility] MMR 2002-01-19 00:00:00 Completed [facility] Polio (IPV/OPV) 2002-01-19 00:00:00 Completed [facility] DTAP 2002-01-19 00:00:00 Completed [facility] HIB 4 Dose Schedule 2002-01-19 00:00:00 Completed [facility] MMR 2002-01-19 00:00:00 Completed [facility] Polio (IPV/OPV) 2002-01-19 00:00:00 Completed [facility] DTAP 2002-01-19 00:00:00 Completed [facility] HIB 4 Dose Schedule 2002-01-19 00:00:00 Completed [facility] MMR 2002-01-19 00:00:00 Completed [facility] Polio (IPV/OPV) 2002-01-19 00:00:00 Completed [facility] DTAP 2002-01-19 00:00:00 Completed [facility] HIB 4 Dose Schedule 2002-01-19 00:00:00 Completed [facility] MMR 2002-01-19 00:00:00 Completed [facility] Polio (IPV/OPV) 2002-01-19 00:00:00 Completed [facility] DTAP 2002-01-19 00:00:00 Completed [facility] HIB 4 Dose Schedule 2002-01-19 00:00:00 Completed [facility] MMR 2002-01-19 00:00:00 Completed [facility] DTAP 2002-01-19 00:00:00 Completed [facility] Polio (IPV/OPV) 2002-01-19 00:00:00 Completed [facility] DTAP 2002-01-19 00:00:00 Completed [facility] HIB 4 Dose Schedule 2002-01-19 00:00:00 Completed [facility] MMR 2002-01-19 00:00:00 Completed [facility] Polio (IPV/OPV) 2002-01-19 00:00:00 Completed [facility] HIB 4 Dose Schedule 2002-01-19 00:00:00 Completed [facility] DTAP 2002-01-19 00:00:00 Completed [facility] HIB 4 Dose Schedule 2002-01-19 00:00:00 Completed [facility] MMR 2002-01-19 00:00:00 Completed [facility] Polio (IPV/OPV) 2002-01-19 00:00:00 Completed [facility] DTAP 2002-01-19 00:00:00 Completed [facility] HIB 4 Dose Schedule 2002-01-19 00:00:00 Completed [facility] MMR 2002-01-19 00:00:00 Completed [facility] Polio (IPV/OPV) 2002-01-19 00:00:00 Completed [facility] DTAP 2002-01-19 00:00:00 Completed [facility] HIB 4 Dose Schedule 2002-01-19 00:00:00 Completed [facility] MMR 2002-01-19 00:00:00 Completed [facility] MMR 2002-01-19 00:00:00 Completed [facility] Polio (IPV/OPV) 2002-01-19 00:00:00 Completed [facility] DTAP 2001 00:00:00 Completed [facility] HIB 4 Dose Schedule 2001 00:00:00 Completed [facility] Polio (IPV/OPV) 2001 00:00:00 Completed [facility] Hep B, Adol or Pedi Dosage 2001 00:00:00 Completed [facility] Polio (IPV/OPV) 2001 00:00:00 Completed [facility] DTAP 2001 00:00:00 Completed [facility] HIB 4 Dose Schedule 2001 00:00:00 Completed [facility] Hep B, Adol or Pedi Dosage 2001 00:00:00 Completed [facility] Polio (IPV/OPV) 2001 00:00:00 Completed [facility] DTAP 2001 00:00:00 Completed [facility] HIB 4 Dose Schedule 2001 00:00:00 Completed [facility] Hep B, Adol or Pedi Dosage 2001 00:00:00 Completed [facility] Polio (IPV/OPV) 2001 00:00:00 Completed [facility] DTAP 2001 00:00:00 Completed [facility] HIB 4 Dose Schedule 2001 00:00:00 Completed [facility] Hep B, Adol or Pedi Dosage 2001 00:00:00 Completed [facility] Polio (IPV/OPV) 2001 00:00:00 Completed [facility] DTAP 2001 00:00:00 Completed [facility] HIB 4 Dose Schedule 2001 00:00:00 Completed [facility] Hep B, Adol or Pedi Dosage 2001 00:00:00 Completed [facility] Polio (IPV/OPV) 2001 00:00:00 Completed [facility] DTAP 2001 00:00:00 Completed [facility] HIB 4 Dose Schedule 2001 00:00:00 Completed [facility] Hep B, Adol or Pedi Dosage 2001 00:00:00 Completed [facility] Polio (IPV/OPV) 2001 00:00:00 Completed [facility] DTAP 2001 00:00:00 Completed [facility] DTAP 2001 00:00:00 Completed [facility] HIB 4 Dose Schedule 2001 00:00:00 Completed [facility] Hep B, Adol or Pedi Dosage 2001 00:00:00 Completed [facility] Polio (IPV/OPV) 2001 00:00:00 Completed [facility] DTAP 2001 00:00:00 Completed [facility] HIB 4 Dose Schedule 2001 00:00:00 Completed [facility] Hep B, Adol or Pedi Dosage 2001 00:00:00 Completed [facility] HIB 4 Dose Schedule 2001 00:00:00 Completed [facility] Polio (IPV/OPV) 2001 00:00:00 Completed [facility] DTAP 2001 00:00:00 Completed [facility] HIB 4 Dose Schedule 2001 00:00:00 Completed [facility] Hep B, Adol or Pedi Dosage 2001 00:00:00 Completed [facility] Polio (IPV/OPV) 2001 00:00:00 Completed [facility] DTAP 2001 00:00:00 Completed [facility] Hep B, Adol or Pedi Dosage 2001 00:00:00 Completed [facility] HIB 4 Dose Schedule 2001 00:00:00 Completed [facility] Hep B, Adol or Pedi Dosage 2001 00:00:00 Completed [facility] Polio (IPV/OPV) 2001 00:00:00 Completed [facility] DTAP 2001 00:00:00 Completed [facility] HIB 4 Dose Schedule 2001 00:00:00 Completed [facility] Hep B, Adol or Pedi Dosage 2001 00:00:00 Completed [facility] Polio (IPV/OPV) 2001 00:00:00 Completed [facility] Polio (IPV/OPV) 2001 00:00:00 Completed [facility] DTAP 2001 00:00:00 Completed [facility] HIB 4 Dose Schedule 2001 00:00:00 Completed [facility] Hep B, Adol or Pedi Dosage 2001 00:00:00 Completed [facility] Polio (IPV/OPV) 2001 00:00:00 Completed [facility] DTAP 2001 00:00:00 Completed [facility] HIB 4 Dose Schedule 2001 00:00:00 Completed [facility] Hep B, Adol or Pedi Dosage 2001 00:00:00 Completed [facility] Polio (IPV/OPV) 2001 00:00:00 Completed [facility] DTAP 2001 00:00:00 Completed [facility] HIB 4 Dose Schedule 2001 00:00:00 Completed [facility] Hep B, Adol or Pedi Dosage 2001 00:00:00 Completed [facility] Polio (IPV/OPV) 2001 00:00:00 Completed [facility] DTAP 2001 00:00:00 Completed [facility] HIB 4 Dose Schedule 2001 00:00:00 Completed [facility] Hep B, Adol or Pedi Dosage 2001 00:00:00 Completed [facility] Polio (IPV/OPV) 2001 00:00:00 Completed [facility] DTAP 2001 00:00:00 Completed [facility] DTAP 2001 00:00:00 Completed [facility] HIB 4 Dose Schedule 2001 00:00:00 Completed [facility] Hep B, Adol or Pedi Dosage 2001 00:00:00 Completed [facility] Polio (IPV/OPV) 2001 00:00:00 Completed [facility] HIB 4 Dose Schedule 2001 00:00:00 Completed [facility] DTAP 2001 00:00:00 Completed [facility] HIB 4 Dose Schedule 2001 00:00:00 Completed [facility] Hep B, Adol or Pedi Dosage 2001 00:00:00 Completed [facility] Polio (IPV/OPV) 2001 00:00:00 Completed [facility] DTAP 2001 00:00:00 Completed [facility] HIB 4 Dose Schedule 2001 00:00:00 Completed [facility] Hep B, Adol or Pedi Dosage 2001 00:00:00 Completed [facility] Polio (IPV/OPV) 2001 00:00:00 Completed [facility] Hep B, Adol or Pedi Dosage 2001 00:00:00 Completed [facility] DTAP 2001 00:00:00 Completed [facility] HIB 4 Dose Schedule 2001 00:00:00 Completed [facility] Hep B, Adol or Pedi Dosage 2001 00:00:00 Completed [facility] Polio (IPV/OPV) 2001 00:00:00 Completed [facility] DTAP 2001 00:00:00 Completed [facility] HIB 4 Dose Schedule 2001 00:00:00 Completed [facility] Hep B, Adol or Pedi Dosage 2001 00:00:00 Completed [facility] Polio (IPV/OPV) 2001 00:00:00 Completed [facility] Polio (IPV/OPV) 2001 00:00:00 Completed [facility] DTAP 2001 00:00:00 Completed [facility] HIB 4 Dose Schedule 2001 00:00:00 Completed [facility] Hep B, Adol or Pedi Dosage 2001 00:00:00 Completed [facility] Polio (IPV/OPV) 2001 00:00:00 Completed [facility] DTAP 2001 00:00:00 Completed [facility] HIB 4 Dose Schedule 2001 00:00:00 Completed [facility] Hep B, Adol or Pedi Dosage 2001 00:00:00 Completed [facility] Polio (IPV/OPV) 2001 00:00:00 Completed [facility] DTAP 2001 00:00:00 Completed [facility] HIB 4 Dose Schedule 2001 00:00:00 Completed [facility] Hep B, Adol or Pedi Dosage 2001 00:00:00 Completed [facility] Polio (IPV/OPV) 2001 00:00:00 Completed [facility] DTAP 2001 00:00:00 Completed [facility] HIB 4 Dose Schedule 2001 00:00:00 Completed [facility] Hep B, Adol or Pedi Dosage 2001 00:00:00 Completed [facility] Polio (IPV/OPV) 2001 00:00:00 Completed [facility] DTAP 2001 00:00:00 Completed [facility] DTAP 2001 00:00:00 Completed [facility] HIB 4 Dose Schedule 2001 00:00:00 Completed [facility] Hep B, Adol or Pedi Dosage 2001 00:00:00 Completed [facility] Polio (IPV/OPV) 2001 00:00:00 Completed [facility] DTAP 2001 00:00:00 Completed [facility] HIB 4 Dose Schedule 2001 00:00:00 Completed [facility] HIB 4 Dose Schedule 2001 00:00:00 Completed [facility] Hep B, Adol or Pedi Dosage 2001 00:00:00 Completed [facility] Polio (IPV/OPV) 2001 00:00:00 Completed [facility] Hep B, Adol or Pedi Dosage 2001 00:00:00 Completed [facility] Polio (IPV/OPV) 2001 00:00:00 Completed [facility] DTAP 2001 00:00:00 Completed [facility] HIB 4 Dose Schedule 2001 00:00:00 Completed [facility] Hep B, Adol or Pedi Dosage 2001 00:00:00 Completed [facility] Polio (IPV/OPV) 2001 00:00:00 Completed [facility] DTAP 2001 00:00:00 Completed [facility] HIB 4 Dose Schedule 2001 00:00:00 Completed [facility] Hep B, Adol or Pedi Dosage 2001 00:00:00 Completed [facility] Polio (IPV/OPV) 2001 00:00:00 Completed [facility] DTAP 2001 00:00:00 Completed [facility] HIB 4 Dose Schedule 2001 00:00:00 Completed [facility] Hep B, Adol or Pedi Dosage 2001 00:00:00 Completed [facility] Polio (IPV/OPV) 2001 00:00:00 Completed [facility] DTAP 2001 00:00:00 Completed [facility] HIB 4 Dose Schedule 2001 00:00:00 Completed [facility] Hep B, Adol or Pedi Dosage 2001 00:00:00 Completed [facility] Polio (IPV/OPV) 2001 00:00:00 Completed [facility] DTAP 2001 00:00:00 Completed [facility] HIB 4 Dose Schedule 2001 00:00:00 Completed [facility] Hep B, Adol or Pedi Dosage 2001 00:00:00 Completed [facility] Polio (IPV/OPV) 2001 00:00:00 Completed [facility] DTAP 2001 00:00:00 Completed [facility] HIB 4 Dose Schedule 2001 00:00:00 Completed [facility] Hep B, Adol or Pedi Dosage 2001 00:00:00 Completed [facility] Polio (IPV/OPV) 2001 00:00:00 Completed [facility] DTAP 2001 00:00:00 Completed [facility] HIB 4 Dose Schedule 2001 00:00:00 Completed [facility] Hep B, Adol or Pedi Dosage 2001 00:00:00 Completed [facility] Polio (IPV/OPV) 2001 00:00:00 Completed [facility] DTAP 2001 00:00:00 Completed [facility] HIB 4 Dose Schedule 2001 00:00:00 Completed [facility] Hep B, Adol or Pedi Dosage 2001 00:00:00 Completed [facility] Polio (IPV/OPV) 2001 00:00:00 Completed [facility] DTAP 2001 00:00:00 Completed [facility] HIB 4 Dose Schedule 2001 00:00:00 Completed [facility] Hep B, Adol or Pedi Dosage 2001 00:00:00 Completed [facility] Polio (IPV/OPV) 2001 00:00:00 Completed [facility] DTAP 2001 00:00:00 Completed [facility] HIB 4 Dose Schedule 2001 00:00:00 Completed [facility] Hep B, Adol or Pedi Dosage 2001 00:00:00 Completed [facility] Polio (IPV/OPV) 2001 00:00:00 Completed [facility] DTAP 2001 00:00:00 Completed [facility] HIB 4 Dose Schedule 2001 00:00:00 Completed [facility] Hep B, Adol or Pedi Dosage 2001 00:00:00 Completed [facility] Polio (IPV/OPV) 2001 00:00:00 Completed [facility] DTAP 2001 00:00:00 Completed [facility] HIB 4 Dose Schedule 2001 00:00:00 Completed [facility] Hep B, Adol or Pedi Dosage 2001 00:00:00 Completed [facility] Polio (IPV/OPV) 2001 00:00:00 Completed [facility] DTAP 2001 00:00:00 Completed [facility] HIB 4 Dose Schedule 2001 00:00:00 Completed [facility] Hep B, Adol or Pedi Dosage 2001 00:00:00 Completed [facility] Polio (IPV/OPV) 2001 00:00:00 Completed [facility] DTAP 2001 00:00:00 Completed [facility] HIB 4 Dose Schedule 2001 00:00:00 Completed [facility] Hep B, Adol or Pedi Dosage 2001 00:00:00 Completed [facility] Polio (IPV/OPV) 2001 00:00:00 Completed [facility] DTAP 2001 00:00:00 Completed [facility] HIB 4 Dose Schedule 2001 00:00:00 Completed [facility] Hep B, Adol or Pedi Dosage 2001 00:00:00 Completed [facility] Polio (IPV/OPV) 2001 00:00:00 Completed [facility] DTAP 2001 00:00:00 Completed [facility] HIB 4 Dose Schedule 2001 00:00:00 Completed [facility] DTAP 2001 00:00:00 Completed [facility] Hep B, Adol or Pedi Dosage 2001 00:00:00 Completed [facility] Polio (IPV/OPV) 2001 00:00:00 Completed [facility] DTAP 2001 00:00:00 Completed [facility] HIB 4 Dose Schedule 2001 00:00:00 Completed [facility] Hep B, Adol or Pedi Dosage 2001 00:00:00 Completed [facility] Polio (IPV/OPV) 2001 00:00:00 Completed [facility] HIB 4 Dose Schedule 2001 00:00:00 Completed [facility] DTAP 2001 00:00:00 Completed [facility] HIB 4 Dose Schedule 2001 00:00:00 Completed [facility] Hep B, Adol or Pedi Dosage 2001 00:00:00 Completed [facility] Polio (IPV/OPV) 2001 00:00:00 Completed [facility] DTAP 2001 00:00:00 Completed [facility] HIB 4 Dose Schedule 2001 00:00:00 Completed [facility] Hep B, Adol or Pedi Dosage 2001 00:00:00 Completed [facility] Hep B, Adol or Pedi Dosage 2001 00:00:00 Completed [facility] Polio (IPV/OPV) 2001 00:00:00 Completed [facility] DTAP 2001 00:00:00 Completed [facility] HIB 4 Dose Schedule 2001 00:00:00 Completed [facility] Hep B, Adol or Pedi Dosage 2001 00:00:00 Completed [facility] Polio (IPV/OPV) 2001 00:00:00 Completed [facility] DTAP 2001 00:00:00 Completed [facility] Polio (IPV/OPV) 2001 00:00:00 Completed [facility] HIB 4 Dose Schedule 2001 00:00:00 Completed [facility] Hep B, Adol or Pedi Dosage 2001 00:00:00 Completed [facility] Polio (IPV/OPV) 2001 00:00:00 Completed [facility] DTAP 2001 00:00:00 Completed [facility] HIB 4 Dose Schedule 2001 00:00:00 Completed [facility] Hep B, Adol or Pedi Dosage 2001 00:00:00 Completed [facility] Polio (IPV/OPV) 2001 00:00:00 Completed [facility] DTAP 2001 00:00:00 Completed [facility] HIB 4 Dose Schedule 2001 00:00:00 Completed [facility] Hep B, Adol or Pedi Dosage 2001 00:00:00 Completed [facility] Polio (IPV/OPV) 2001 00:00:00 Completed [facility] DTAP 2001 00:00:00 Completed [facility] HIB 4 Dose Schedule 2001 00:00:00 Completed [facility] Hep B, Adol or Pedi Dosage 2001 00:00:00 Completed [facility] Polio (IPV/OPV) 2001 00:00:00 Completed [facility] DTAP 2001 00:00:00 Completed [facility] HIB 4 Dose Schedule 2001 00:00:00 Completed [facility] Hep B, Adol or Pedi Dosage 2001 00:00:00 Completed [facility] Polio (IPV/OPV) 2001 00:00:00 Completed [facility] DTAP 2001 00:00:00 Completed [facility] HIB 4 Dose Schedule 2001 00:00:00 Completed [facility] Hep B, Adol or Pedi Dosage 2001 00:00:00 Completed [facility] Polio (IPV/OPV) 2001 00:00:00 Completed [facility] DTAP 2001 00:00:00 Completed [facility] DTAP 2001 00:00:00 Completed [facility] HIB 4 Dose Schedule 2001 00:00:00 Completed [facility] Hep B, Adol or Pedi Dosage 2001 00:00:00 Completed [facility] Polio (IPV/OPV) 2001 00:00:00 Completed [facility] DTAP 2001 00:00:00 Completed [facility] HIB 4 Dose Schedule 2001 00:00:00 Completed [facility] HIB 4 Dose Schedule 2001 00:00:00 Completed [facility] Hep B, Adol or Pedi Dosage 2001 00:00:00 Completed [facility] Polio (IPV/OPV) 2001 00:00:00 Completed [facility] DTAP 2001 00:00:00 Completed [facility] HIB 4 Dose Schedule 2001 00:00:00 Completed [facility] Hep B, Adol or Pedi Dosage 2001 00:00:00 Completed [facility] Polio (IPV/OPV) 2001 00:00:00 Completed [facility] Hep B, Adol or Pedi Dosage 2001 00:00:00 Completed [facility] DTAP 2001 00:00:00 Completed [facility] HIB 4 Dose Schedule 2001 00:00:00 Completed [facility] Hep B, Adol or Pedi Dosage 2001 00:00:00 Completed [facility] Polio (IPV/OPV) 2001 00:00:00 Completed [facility] DTAP 2001 00:00:00 Completed [facility] HIB 4 Dose Schedule 2001 00:00:00 Completed [facility] Hep B, Adol or Pedi Dosage 2001 00:00:00 Completed [facility] Polio (IPV/OPV) 2001 00:00:00 Completed [facility] Polio (IPV/OPV) 2001 00:00:00 Completed [facility] DTAP 2001 00:00:00 Completed [facility] HIB 4 Dose Schedule 2001 00:00:00 Completed [facility] Hep B, Adol or Pedi Dosage 2001 00:00:00 Completed [facility] Polio (IPV/OPV) 2001 00:00:00 Completed [facility] DTAP 2001 00:00:00 Completed [facility] HIB 4 Dose Schedule 2001 00:00:00 Completed [facility] Hep B, Adol or Pedi Dosage 2001 00:00:00 Completed [facility] Polio (IPV/OPV) 2001 00:00:00 Completed [facility] DTAP 2001 00:00:00 Completed [facility] HIB 4 Dose Schedule 2001 00:00:00 Completed [facility] Hep B, Adol or Pedi Dosage 2001 00:00:00 Completed [facility] Polio (IPV/OPV) 2001 00:00:00 Completed [facility] DTAP 2001 00:00:00 Completed [facility] HIB 4 Dose Schedule 2001 00:00:00 Completed [facility] Hep B, Adol or Pedi Dosage 2001 00:00:00 Completed [facility] Polio (IPV/OPV) 2001 00:00:00 Completed [facility] DTAP 2001 00:00:00 Completed [facility] DTAP 2001 00:00:00 Completed [facility] HIB 4 Dose Schedule 2001 00:00:00 Completed [facility] Hep B, Adol or Pedi Dosage 2001 00:00:00 Completed [facility] Polio (IPV/OPV) 2001 00:00:00 Completed [facility] HIB 4 Dose Schedule 2001 00:00:00 Completed [facility] DTAP 2001 00:00:00 Completed [facility] HIB 4 Dose Schedule 2001 00:00:00 Completed [facility] Hep B, Adol or Pedi Dosage 2001 00:00:00 Completed [facility] Polio (IPV/OPV) 2001 00:00:00 Completed [facility] DTAP 2001 00:00:00 Completed [facility] HIB 4 Dose Schedule 2001 00:00:00 Completed [facility] Hep B, Adol or Pedi Dosage 2001 00:00:00 Completed [facility] Polio (IPV/OPV) 2001 00:00:00 Completed [facility] Hep B, Adol or Pedi Dosage 2001 00:00:00 Completed [facility] DTAP 2001 00:00:00 Completed [facility] HIB 4 Dose Schedule 2001 00:00:00 Completed [facility] Hep B, Adol or Pedi Dosage 2001 00:00:00 Completed [facility] Polio (IPV/OPV) 2001 00:00:00 Completed [facility] DTAP 2001 00:00:00 Completed [facility] HIB 4 Dose Schedule 2001 00:00:00 Completed [facility] Polio (IPV/OPV) 2001 00:00:00 Completed [facility] Hep B, Adol or Pedi Dosage 2001 00:00:00 Completed [facility] Polio (IPV/OPV) 2001 00:00:00 Completed [facility] DTAP 2001 00:00:00 Completed [facility] HIB 4 Dose Schedule 2001 00:00:00 Completed [facility] Hep B, Adol or Pedi Dosage 2001 00:00:00 Completed [facility] Polio (IPV/OPV) 2001 00:00:00 Completed [facility] DTAP 2001 00:00:00 Completed [facility] HIB 4 Dose Schedule 2001 00:00:00 Completed [facility] Hep B, Adol or Pedi Dosage 2001 00:00:00 Completed [facility] Polio (IPV/OPV) 2001 00:00:00 Completed [facility] DTAP 2001 00:00:00 Completed [facility] HIB 4 Dose Schedule 2001 00:00:00 Completed [facility] Hep B, Adol or Pedi Dosage 2001 00:00:00 Completed [facility] Polio (IPV/OPV) 2001 00:00:00 Completed [facility] DTAP 2001 00:00:00 Completed [facility] HIB 4 Dose Schedule 2001 00:00:00 Completed [facility] Hep B, Adol or Pedi Dosage 2001 00:00:00 Completed [facility] Polio (IPV/OPV) 2001 00:00:00 Completed [facility] DTAP 2001 00:00:00 Completed [facility] DTAP 2001 00:00:00 Completed [facility] HIB 4 Dose Schedule 2001 00:00:00 Completed [facility] Hep B, Adol or Pedi Dosage 2001 00:00:00 Completed [facility] Polio (IPV/OPV) 2001 00:00:00 Completed [facility] HIB 4 Dose Schedule 2001 00:00:00 Completed [facility] DTAP 2001 00:00:00 Completed [facility] HIB 4 Dose Schedule 2001 00:00:00 Completed [facility] Hep B, Adol or Pedi Dosage 2001 00:00:00 Completed [facility] Polio (IPV/OPV) 2001 00:00:00 Completed [facility] Hep B, Adol or Pedi Dosage 2001 00:00:00 Completed [facility] Polio (IPV/OPV) 2001 00:00:00 Completed [facility] DTAP 2001 00:00:00 Completed [facility] HIB 4 Dose Schedule 2001 00:00:00 Completed [facility] Hep B, Adol or Pedi Dosage 2001 00:00:00 Completed [facility] Polio (IPV/OPV) 2001 00:00:00 Completed [facility] DTAP 2001 00:00:00 Completed [facility] HIB 4 Dose Schedule 2001 00:00:00 Completed [facility] Hep B, Adol or Pedi Dosage 2001 00:00:00 Completed [facility] Polio (IPV/OPV) 2001 00:00:00 Completed [facility] DTAP 2001 00:00:00 Completed [facility] HIB 4 Dose Schedule 2001 00:00:00 Completed [facility] Hep B, Adol or Pedi Dosage 2001 00:00:00 Completed [facility] Polio (IPV/OPV) 2001 00:00:00 Completed [facility] DTAP 2001 00:00:00 Completed [facility] HIB 4 Dose Schedule 2001 00:00:00 Completed [facility] Hep B, Adol or Pedi Dosage 2001 00:00:00 Completed [facility] Polio (IPV/OPV) 2001 00:00:00 Completed [facility] DTAP 2001 00:00:00 Completed [facility] HIB 4 Dose Schedule 2001 00:00:00 Completed [facility] Hep B, Adol or Pedi Dosage 2001 00:00:00 Completed [facility] Polio (IPV/OPV) 2001 00:00:00 Completed [facility] DTAP 2001 00:00:00 Completed [facility] HIB 4 Dose Schedule 2001 00:00:00 Completed [facility] Hep B, Adol or Pedi Dosage 2001 00:00:00 Completed [facility] Polio (IPV/OPV) 2001 00:00:00 Completed [facility] DTAP 2001 00:00:00 Completed [facility] HIB 4 Dose Schedule 2001 00:00:00 Completed [facility] Hep B, Adol or Pedi Dosage 2001 00:00:00 Completed [facility] Polio (IPV/OPV) 2001 00:00:00 Completed [facility] DTAP 2001 00:00:00 Completed [facility] HIB 4 Dose Schedule 2001 00:00:00 Completed [facility] Hep B, Adol or Pedi Dosage 2001 00:00:00 Completed [facility] Polio (IPV/OPV) 2001 00:00:00 Completed [facility] DTAP 2001 00:00:00 Completed [facility] HIB 4 Dose Schedule 2001 00:00:00 Completed [facility] Hep B, Adol or Pedi Dosage 2001 00:00:00 Completed [facility] Polio (IPV/OPV) 2001 00:00:00 Completed [facility] DTAP 2001 00:00:00 Completed [facility] HIB 4 Dose Schedule 2001 00:00:00 Completed [facility] Hep B, Adol or Pedi Dosage 2001 00:00:00 Completed [facility] Polio (IPV/OPV) 2001 00:00:00 Completed [facility] DTAP 2001 00:00:00 Completed [facility] HIB 4 Dose Schedule 2001 00:00:00 Completed [facility] Hep B, Adol or Pedi Dosage 2001 00:00:00 Completed [facility] Polio (IPV/OPV) 2001 00:00:00 Completed [facility] DTAP 2001 00:00:00 Completed [facility] HIB 4 Dose Schedule 2001 00:00:00 Completed [facility] Hep B, Adol or Pedi Dosage 2001 00:00:00 Completed [facility] Polio (IPV/OPV) 2001 00:00:00 Completed [facility] DTAP 2001 00:00:00 Completed [facility] HIB 4 Dose Schedule 2001 00:00:00 Completed [facility] Hep B, Adol or Pedi Dosage 2001 00:00:00 Completed [facility] Polio (IPV/OPV) 2001 00:00:00 Completed [facility] DTAP 2001 00:00:00 Completed [facility] HIB 4 Dose Schedule 2001 00:00:00 Completed [facility] Hep B, Adol or Pedi Dosage 2001 00:00:00 Completed [facility] Polio (IPV/OPV) 2001 00:00:00 Completed [facility] DTAP 2001 00:00:00 Completed [facility] HIB 4 Dose Schedule 2001 00:00:00 Completed [facility] Hep B, Adol or Pedi Dosage 2001 00:00:00 Completed [facility] Polio (IPV/OPV) 2001 00:00:00 Completed [facility] DTAP 2001 00:00:00 Completed [facility] DTAP 2001 00:00:00 Completed [facility] HIB 4 Dose Schedule 2001 00:00:00 Completed [facility] Hep B, Adol or Pedi Dosage 2001 00:00:00 Completed [facility] Polio (IPV/OPV) 2001 00:00:00 Completed [facility] DTAP 2001 00:00:00 Completed [facility] HIB 4 Dose Schedule 2001 00:00:00 Completed [facility] Hep B, Adol or Pedi Dosage 2001 00:00:00 Completed [facility] HIB 4 Dose Schedule 2001 00:00:00 Completed [facility] Polio (IPV/OPV) 2001 00:00:00 Completed [facility] DTAP 2001 00:00:00 Completed [facility] HIB 4 Dose Schedule 2001 00:00:00 Completed [facility] Hep B, Adol or Pedi Dosage 2001 00:00:00 Completed [facility] Polio (IPV/OPV) 2001 00:00:00 Completed [facility] DTAP 2001 00:00:00 Completed [facility] Hep B, Adol or Pedi Dosage 2001 00:00:00 Completed [facility] HIB 4 Dose Schedule 2001 00:00:00 Completed [facility] Hep B, Adol or Pedi Dosage 2001 00:00:00 Completed [facility] Polio (IPV/OPV) 2001 00:00:00 Completed [facility] DTAP 2001 00:00:00 Completed [facility] HIB 4 Dose Schedule 2001 00:00:00 Completed [facility] Hep B, Adol or Pedi Dosage 2001 00:00:00 Completed [facility] Polio (IPV/OPV) 2001 00:00:00 Completed [facility] Hep B, Adol or Pedi Dosage 2001 00:00:00 Completed [facility] Hep B, Adol or Pedi Dosage 2001 00:00:00 Completed [facility] Hep B, Adol or Pedi Dosage 2001 00:00:00 Completed [facility] Hep B, Adol or Pedi Dosage 2001 00:00:00 Completed [facility] Hep B, Adol or Pedi Dosage 2001 00:00:00 Completed [facility] Hep B, Adol or Pedi Dosage 2001 00:00:00 Completed [facility] Hep B, Adol or Pedi Dosage 2001 00:00:00 Completed [facility] Hep B, Adol or Pedi Dosage 2001 00:00:00 Completed [facility] Hep B, Adol or Pedi Dosage 2001 00:00:00 Completed [facility] Hep B, Adol or Pedi Dosage 2001 00:00:00 Completed [facility] Hep B, Adol or Pedi Dosage 2001 00:00:00 Completed [facility] Hep B, Adol or Pedi Dosage 2001 00:00:00 Completed [facility] Hep B, Adol or Pedi Dosage 2001 00:00:00 Completed [facility] Hep B, Adol or Pedi Dosage 2001 00:00:00 Completed [facility] Hep B, Adol or Pedi Dosage 2001 00:00:00 Completed [facility] Hep B, Adol or Pedi Dosage 2001 00:00:00 Completed [facility] Hep B, Adol or Pedi Dosage 2001 00:00:00 Completed [facility] Hep B, Adol or Pedi Dosage 2001 00:00:00 Completed [facility] Hep B, Adol or Pedi Dosage 2001 00:00:00 Completed [facility] Hep B, Adol or Pedi Dosage 2001 00:00:00 Completed [facility] Hep B, Adol or Pedi Dosage 2001 00:00:00 Completed [facility] Hep B, Adol or Pedi Dosage 2001 00:00:00 Completed [facility] Hep B, Adol or Pedi Dosage 2001 00:00:00 Completed [facility] Hep B, Adol or Pedi Dosage 2001 00:00:00 Completed [facility] Hep B, Adol or Pedi Dosage 2001 00:00:00 Completed [facility] Hep B, Adol or Pedi Dosage 2001 00:00:00 Completed [facility] Hep B, Adol or Pedi Dosage 2001 00:00:00 Completed [facility] Hep B, Adol or Pedi Dosage 2001 00:00:00 Completed [facility] Hep B, Adol or Pedi Dosage 2001 00:00:00 Completed [facility] Hep B, Adol or Pedi Dosage 2001 00:00:00 Completed [facility] Hep B, Adol or Pedi Dosage 2001 00:00:00 Completed [facility] Hep B, Adol or Pedi Dosage 2001 00:00:00 Completed [facility] Hep B, Adol or Pedi Dosage 2001 00:00:00 Completed [facility] Hep B, Adol or Pedi Dosage 2001 00:00:00 Completed [facility] Hep B, Adol or Pedi Dosage 2001 00:00:00 Completed [facility] Hep B, Adol or Pedi Dosage 2001 00:00:00 Completed [facility] Hep B, Adol or Pedi Dosage 2001 00:00:00 Completed [facility] Hep B, Adol or Pedi Dosage 2001 00:00:00 Completed [facility] Hep B, Adol or Pedi Dosage 2001 00:00:00 Completed [facility] Hep B, Adol or Pedi Dosage 2001 00:00:00 Completed [facility] Hep B, Adol or Pedi Dosage 2001 00:00:00 Completed [facility] Hep B, Adol or Pedi Dosage 2001 00:00:00 Completed [facility] Hep B, Adol or Pedi Dosage 2001 00:00:00 Completed [facility] Hep B, Adol or Pedi Dosage 2001 00:00:00 Completed [facility] Hep B, Adol or Pedi Dosage 2001 00:00:00 Completed [facility] Hep B, Adol or Pedi Dosage 2001 00:00:00 Completed [facility] Hep B, Adol or Pedi Dosage 2001 00:00:00 Completed [facility] Hep B, Adol or Pedi Dosage 2001 00:00:00 Completed [facility] Hep B, Adol or Pedi Dosage 2001 00:00:00 Completed [facility] Hep B, Adol or Pedi Dosage 2001 00:00:00 Completed [facility] DTAP Unknown Completed [facility] DTAP Unknown Completed [facility] DTAP Unknown Completed [facility] DTAP Unknown Completed [facility] DTAP Unknown Completed [facility] HIB 4 Dose Schedule Unknown Completed [facility] HIB 4 Dose Schedule Unknown Completed [facility] HIB 4 Dose Schedule Unknown Completed [facility] HIB 4 Dose Schedule Unknown Completed [facility] HEPATITIS A Unknown Completed [facility] HEPATITIS A Unknown Completed [facility] Hep B, Adol or Pedi Dosage Unknown Completed [facility] Hep B, Adol or Pedi Dosage Unknown Completed [facility] Hep B, Adol or Pedi Dosage Unknown Completed [facility] HPV Unknown Completed [facility] Influenza Virus Vaccine Unknown Completed [facility] Influenza Virus Vaccine Unknown Completed [facility] MMR Unknown Completed [facility] MMR Unknown Completed [facility] Polio (IPV/OPV) Unknown Completed [facility] Polio (IPV/OPV) Unknown Completed [facility] Polio (IPV/OPV) Unknown Completed [facility] Polio (IPV/OPV) Unknown Completed [facility] Varicella (varivax)(chicken pox) Unknown Completed [facility] Varicella (varivax)(chicken pox) Unknown Completed [facility] Pneumococcal 7 Conjugate, PCV7 (Prevnar7) Unknown Completed [facility] HPV9 Unknown Completed [facility] Meningococcal Polysaccharide (groups A, C, Y and W-135) conjugate vaccine (MCV4P) Unknown Completed [facility] TDAP Unknown Completed [facility] Meningococcal Polysaccharide (groups A, C, Y and W-135) conjugate vaccine (MCV4P) Unknown Completed [facility] Influenza Virus Vaccine Quad IM 3+ YRS Unknown Completed [facility] Meningococcal B, OMV Unknown Completed [facility] Meningococcal B, OMV Unknown Completed [facility] Vital Signs Vital Name Observation Time Observation Value Comments S ource Systolic blood pressure 2023-02-25 21:10:00 118 mm[Hg] [facility] Diastolic blood pressure 2023-02-25 21:10:00 76 mm[Hg] [facility] Heart rate 2023-02-25 21:10:00 78 /min [facility] Body temperature 2023-02-25 21:10:00 36.67 Lilo [facility] Respiratory rate 2023-02-25 21:10:00 15 /min [facility] Oxygen saturation in Arterial blood by Pulse oximetry 2023-02-25 21:10:00 99 /min [facility] Body height 2023-02-25 19:24:00 180.3 cm [facility] Body weight 2023-02-25 19:24:00 143.155 kg [facility] BMI 2023-02-25 19:24:00 44.02 kg/m2 [facility] Systolic blood pressure 2020-08-20 14:45:00 119 mm[Hg] [facility] Diastolic blood pressure 2020-08-20 14:45:00 75 mm[Hg] [facility] Heart rate 2020-08-20 14:45:00 80 /min [facility] Body temperature 2020-08-20 14:45:00 36.78 Lilo [facility] Body height 2020-08-20 14:45:00 177.8 cm [facility] Body weight 2020-08-20 14:45:00 131.588 kg [facility] BMI 2020-08-20 14:45:00 41.63 kg/m2 [facility] Oxygen saturation in Arterial blood by Pulse oximetry 2020-08-20 14:45:00 99 /min [facility] height 2020-08-12 10:30:00 69 [in_i] Commo n [facility] weight 2020-08-12 10:30:00 287 [lb_av] Comm on [facility] bmi 2020-08-12 10:30:00 42.38 kg/m2 Comm on [facility] blood pressure systolic 2020-08-12 10:30:00 118 mm[Hg] [facility] blood pressure diastolic 2020-08-12 10:30:00 78 mm[Hg] [facility] Systolic blood pressure 2020-07-09 15:47:00 123 mm[Hg] [facility] Diastolic blood pressure 2020-07-09 15:47:00 80 mm[Hg] [facility] Heart rate 2020-07-09 15:47:00 92 /min [facility] 2020-07-09 15:47:00 37 Lilo [facility] Respiratory rate 2020-07-09 15:47:00 18 /min [facility] Body height 2020-07-09 15:47:00 175.3 cm [facility] Body weight 2020-07-09 15:47:00 127.914 kg [facility] BMI 2020-07-09 15:47:00 41.64 kg/m2 [facility] Oxygen saturation in Arterial blood by Pulse oximetry 2020-07-09 15:47:00 98 /min [facility] Systolic blood pressure 2020-06-25 16:42:00 120 mm[Hg] [facility] Diastolic blood pressure 2020-06-25 16:42:00 77 mm[Hg] [facility] Heart rate 2020-06-25 16:42:00 72 /min [facility] Body temperature 2020-06-25 16:42:00 37 Lilo [facility] Respiratory rate 2020-06-25 16:42:00 18 /min [facility] Body height 2020-06-25 16:42:00 177.8 cm [facility] Body weight 2020-06-25 16:42:00 127.914 kg [facility] BMI 2020-06-25 16:42:00 40.46 kg/m2 [facility] Oxygen saturation in Arterial blood by Pulse oximetry 2020-06-25 16:42:00 100 /min [facility] Systolic blood pressure 2020-06-17 12:15:00 138 mm[Hg] [facility] Diastolic blood pressure 2020-06-17 12:15:00 83 mm[Hg] [facility] Heart rate 2020-06-17 12:15:00 64 /min [facility] Body temperature 2020-06-17 12:15:00 36.44 Lilo [facility] Respiratory rate 2020-06-17 12:15:00 18 /min [facility] Body height 2020-06-17 12:15:00 177.8 cm [facility] Body weight 2020-06-17 12:15:00 127.007 kg [facility] BMI 2020-06-17 12:15:00 40.18 kg/m2 [facility] Oxygen saturation in Arterial blood by Pulse oximetry 2020-06-17 12:15:00 99 /min [facility] height 2020-06-10 10:30:00 69 [in_i] Commo n [facility] weight 2020-06-10 10:30:00 287 [lb_av] Comm on [facility] temperature 2020-06-10 10:30:00 97.3 [degF] Com mon [facility] bmi 2020-06-10 10:30:00 42.38 kg/m2 Comm on [facility] blood pressure systolic 2020-06-10 10:30:00 120 mm[Hg] [facility] blood pressure diastolic 2020-06-10 10:30:00 74 mm[Hg] [facility] Systolic blood pressure 2020-05-14 17:54:00 115 mm[Hg] [facility] Diastolic blood pressure 2020-05-14 17:54:00 67 mm[Hg] [facility] Heart rate 2020-05-14 17:54:00 77 /[facility] Body temperature 2020-05-14 17:54:00 36.67 Lilo [facility] Respiratory rate 2020-05-14 17:54:00 18 /min [facility] Body height 2020-05-14 17:54:00 177.8 cm [facility] Body weight 2020-05-14 17:54:00 128.323 kg [facility] BMI 2020-05-14 17:54:00 40.59 kg/m2 [facility] Oxygen saturation in Arterial blood by Pulse oximetry 2020-05-14 17:54:00 100 /min [facility] Systolic blood pressure 2020-05-14 17:54:00 115 mm[Hg] [facility] Diastolic blood pressure 2020-05-14 17:54:00 67 mm[Hg] [facility] Heart rate 2020-05-14 17:54:00 77 /min [facility] Body temperature 2020-05-14 17:54:00 36.67 Lilo [facility] Respiratory rate 2020-05-14 17:54:00 18 /min [facility] Body height 2020-05-14 17:54:00 177.8 cm [facility] Body weight 2020-05-14 17:54:00 128.323 kg [facility] BMI 2020-05-14 17:54:00 40.59 kg/m2 [facility] Oxygen saturation in Arterial blood by Pulse oximetry 2020-05-14 17:54:00 100 /min [facility] height 2020-04-21 14:00:00 69 [in_i] Commo n [facility] weight 2020-04-21 14:00:00 279 [lb_av] Comm on [facility] temperature 2020-04-21 14:00:00 97.7 [degF] Com mon [facility] bmi 2020-04-21 14:00:00 41.2 kg/m2 [facility]mo [facility] blood pressure systolic 2020-04-21 14:00:00 122 mm[Hg] [facility] blood pressure diastolic 2020-04-21 14:00:00 80 mm[Hg] [facility] height 2020-03-20 11:15:00 69 [in_i] Commo n [facility] weight 2020-03-20 11:15:00 279 [lb_av] Comm on [facility] bmi 2020-03-20 11:15:00 41.2 kg/m2 Commo n [facility] blood pressure systolic 2020-03-20 11:15:00 147 mm[Hg] [facility] blood pressure diastolic 2020-03-20 11:15:00 89 mm[Hg] [facility] height 2020-03-11 15:30:00 69 [in_i] Commo n [facility] weight 2020-03-11 15:30:00 279 [lb_av] Comm on [facility] temperature 2020-03-11 15:30:00 97.1 [degF] Com mon [facility] bmi 2020-03-11 15:30:00 41.20 kg/m2 Comm on [facility] blood pressure systolic 2020-03-11 15:30:00 133 mm[Hg] [facility] blood pressure diastolic 2020-03-11 15:30:00 84 mm[Hg] [facility] height 2020-02-28 10:00:00 69 [in_i] Commo n [facility] weight 2020-02-28 10:00:00 179 [lb_av] Comm on [facility] temperature 2020-02-28 10:00:00 97.3 [degF] Com mon [facility] bmi 2020-02-28 10:00:00 26.43 kg/m2 Comm on [facility] blood pressure systolic 2020-02-28 10:00:00 124 mm[Hg] [facility] blood pressure diastolic 2020-02-28 10:00:00 84 mm[Hg] [facility] weight 2020-02-12 10:30:00 179 [lb_av] Comm on [facility] temperature 2020-02-12 10:30:00 97.1 [degF] Com [facility] bmi 2020-02-12 10:30:00 26.43 kg/m2 Comm on [facility] blood pressure systolic 2020-02-12 10:30:00 124 mm[Hg] Common [facility] blood pressure diastolic 2020-02-12 10:30:00 82 mm[Hg] [facility] height 2020-02-12 10:30:00 69 [in_i] Commo n [facility] height 2020-01-29 11:00:00 69 [in_i] Commo n [facility] weight 2020-01-29 11:00:00 179 [lb_av] Comm on [facility] bmi 2020-01-29 11:00:00 26.43 kg/m2 Comm on [facility] blood pressure systolic 2020-01-29 11:00:00 118 mm[Hg] [facility] blood pressure diastolic 2020-01-29 11:00:00 82 mm[Hg] [facility] height 2020-01-22 13:00:00 69 [in_i] Commo n [facility] weight 2020-01-22 13:00:00 179 [lb_av] Comm on [facility] bmi 2020-01-22 13:00:00 26.43 kg/m2 Comm on [facility] blood pressure systolic 2020-01-22 13:00:00 120 mm[Hg] Common [facility] blood pressure diastolic 2020-01-22 13:00:00 80 mm[Hg] Common [facility] Systolic blood pressure 2020-01-20 19:46:00 140 mm[Hg] [facility] Diastolic blood pressure 2020-01-20 19:46:00 79 mm[Hg] [facility] Heart rate 2020-01-20 19:46:00 99 /min [facility] [facility] Body temperature 2020-01-20 19:46:00 37.44 Lilo [facility] Respiratory rate 2020-01-20 19:46:00 18 /min [facility] Body weight 2020-01-20 19:46:00 126.554 kg [facility] Oxygen saturation in Arterial blood by Pulse oximetry 2020-01-20 19:46:00 97 /min [facility] Systolic blood pressure 2020-01-02 14:09:00 120 mm[Hg] [facility] Diastolic blood pressure 2020-01-02 14:09:00 83 mm[Hg] [facility] Heart rate 2020-01-02 14:09:00 79 /min [facility] Body temperature 2020-01-02 14:09:00 36.67 Lilo [facility] Respiratory rate 2020-01-02 14:09:00 18 /min [facility] Body height 2020-01-02 14:09:00 175.3 cm [facility] Body weight 2020-01-02 14:09:00 126.554 kg [facility] BMI 2020-01-02 14:09:00 41.20 kg/m2 [facility] Oxygen saturation in Arterial blood by Pulse oximetry 2020-01-02 14:09:00 100 /min [facility] Systolic blood pressure 2019-11-23 15:43:00 132 mm[Hg] [facility] Diastolic blood pressure 2019-11-23 15:43:00 80 mm[Hg] [place] [facility] Heart rate 2019-11-23 15:43:00 87 /min [facility] Body temperature 2019-11-23 15:43:00 37.22 Lilo [facility] Respiratory rate 2019-11-23 15:43:00 20 /min [facility] Body height 2019-11-23 15:43:00 172.5 cm [facility] Body weight 2019-11-23 15:43:00 126.724 kg [facility] BMI 2019-11-23 15:43:00 42.59 kg/m2 [facility] Body height 2019-08-17 16:00:00 177.8 cm [facility] Body weight 2019-08-17 16:00:00 113.399 kg [facility] BMI 2019-08-17 16:00:00 35.87 kg/m2 [facility] Procedures Procedure Date / Time Performed Performing Clinician Source ASSIGNMENT OF BENEFITS 2023-02-25 21:01:36 Docto r Unassigned, [place] [facility] RAPID RSV 2023-02-25 19:39:00 Kelly Glass [facility] NOTICE OF PRIVACY PRACTICES 2023-02-25 19:00:09 Doctor Unassigned, [place] [facility] CONSENT/REFUSAL FOR DIAGNOSIS AND TREATMENT 2023-02-25 18:58:36 Doctor Unassigned, [place] [facility] POCT TEST 2020-06-17 11:30:00 Maria R He [facility] ASSIGNMENT OF BENEFITS 2020-06-17 10:54:43 Docto r Unassigned, [place] [facility] DISCLOSURE AND CONSENT, MEDICAL AND SURGICAL PROCEDURES 2020-05-14 06:01:00 Doctor Unassigned, [place] [facility] XR KNEE 3 VW RIGHT 2020-01-20 20:20:03 Leyda Juares [facility] CONSENT/REFUSAL FOR DIAGNOSIS AND TREATMENT 2020-01-20 19:36:17 Doctor Unassigned, [place] [facility] DISCLOSURE AND CONSENT, MEDICAL AND SURGICAL PROCEDURES 2020-01-02 05:01:00 Doctor Unassigned, [place] [facility] MENINGOCOCCAL B VACCINE, OMV, 2 DOSE, IM 2019-11-23 15:55:20 Izzy Villanueva [facility] NOTICE OF PRIVACY PRACTICES 2019-11-23 15:23:48 Doctor Unassigned, [place] [facility] Encounters Start Date/Time End Date/Time Encounter Type Admission Type Attending [facility] Care Facility Care Department Encounter ID Source 2021-05-13 11:52:27 Outpatient [facility] [id number] [facility] 2021-02-15 01:09:16 Outpatient ELVIE FAN [facility] [id number] [facility] 2021-02-13 20:55:59 Emergency [facility] [id number] [facility] 2023-02-25 13:25:00 2023-02-25 15:18:00 Emergency X KELLY GLASS [facility] ERT [id number] [facility] 2023-02-25 13:25:00 2023-02-25 15:18:00 Emergency Kelly Glass [facility] 1.2.840.114 350.1.13.10 4.2.7.2.686 [id number] [facility] 2022-11-01 15:30:42 2022-11-01 15:30:42 Outpatient [facility] [id number] Alejandro De Paz 2020-08-20 09:39:34 2020-08-20 10:17:52 Office Visit Elvie Fan [facility] 1.2.840.114 350.1.13.10 4.2.7.2.686 [id number] [facility] 2020-08-20 09:45:00 2020-08-20 09:45:00 Outpatient R ELVIE FAN [facility] [id number] [facility] 2020-08-12 00:00:00 2020-08-12 00:00:00 OFFICE VISIT EST PT LEVEL 3 STLMLC STLMLC [id number] [facility] 2020-07-23 10:45:00 2020-07-23 10:45:00 Outpatient R ELVIE FAN [facility] [id number] [facility] 2020-07-16 09:45:00 2020-07-16 09:45:00 Outpatient R ELVIE FAN [facility] [id number] [facility] 2020-07-16 07:55:20 2020-07-16 08:10:20 [facility] 1.2.840.114 350.1.13.10 4.2.7.2.686 [id number] [facility] 2020-07-09 10:42:26 2020-07-09 11:51:21 Office Visit Elvie Fan [facility] 1.2.840.114 350.1.13.10 4.2.7.2.686 [id number] [facility] 2020-07-09 10:45:00 2020-07-09 10:45:00 Outpatient R ELVIE FAN [facility] [id number] [facility] 2020-06-25 10:31:50 2020-06-25 11:20:56 Office Visit Elvie Fan [facility] 1.2.840.114 350.1.13.10 4.2.7.2.686 [id number] [facility] 2020-06-25 10:45:00 2020-06-25 10:45:00 Outpatient R ELVIE FAN [facility] [id number] [facility] 2020-06-20 13:00:00 2020-06-20 13:00:00 Outpatient DANIS KEMP [facility] [id number] [facility] 2020-06-17 04:54:00 2020-06-17 12:53:00 Hospital Encounter Elvie Fan [facility] 1.2.840.114 350.1.13.10 4.2.7.2.686 [id number] [facility] 2020-06-17 00:00:00 2020-06-17 00:00:00 Orders Only Doctor Unassigned, [place] [facility] 1.2.840.114 350.1.13.10 4.2.7.2.686 [id number] [facility] 2020-06-17 00:00:00 2020-06-17 00:00:00 Telephone Elvie Fan [facility] 1.2.840.114 350.1.13.10 4.2.7.2.686 [id number] [facility] 2020-06-16 00:00:00 2020-06-16 00:00:00 Nurse Triage Randi Manrique [facility] 1.2.840.114 350.1.13.10 4.2.7.2.686 [id number] [facility] 2020-06-13 09:42:52 2020-06-13 09:57:52 Laboratory Only Only, Adc Test Dhiraj June [facility] 1.2.840.114 350.1.13.10 4.2.7.2.686 [id number] [facility] 2020-06-13 09:45:00 2020-06-13 09:45:00 Outpatient DHIRAJ DICKENS [facility] [id number] [facility] 2020-06-11 09:15:00 2020-06-11 09:15:00 Outpatient R ELVIE FAN [facility] [id number] [facility] 2020-06-11 07:53:33 2020-06-11 08:08:33 Telemedici ne Visit Elvie Fan [facility] 1.2.840.114 350.1.13.10 4.2.7.2.686 [id number] [facility] 2020-06-10 00:00:00 2020-06-10 00:00:00 OFFICE VISIT EST PT LEVEL 3 STLMLC STLMLC [id number] [facility] 2020-05-14 11:37:54 2020-05-14 11:37:54 [facility] 1.2.840.114 350.1.13.10 4.2.7.2.686 [id number] [facility] 2020-05-14 11:37:54 2020-05-14 11:37:54 Office Visit Patricia [facility] [place] [facility] 1.2.840.114 350.1.13.10 4.2.7.2.686 [id number] 2020-05-14 11:30:00 2020-05-14 11:30:00 Outpatient R ELVIE FAN [facility] [id number] [facility] 2020-05-14 00:00:00 2020-05-14 00:00:00 Orders Only Doctor Unassigned, [place] [facility] 1.2.840.114 350.1.13.10 4.2.7.2.686 [id number] [facility] 2020-05-14 00:00:00 2020-05-14 00:00:00 Orders Only Doctor Unassigned, [place] [facility] 1.2.840.114 350.1.13.10 4.2.7.2.686 [id number] 2020-04-21 00:00:00 2020-04-21 00:00:00 NON-BILLAB LE VISIT STLMLC STLC [id number] [facility] 2020-04-02 00:00:00 2020-04-02 00:00:00 Prep For Surgery Elvie Fan [facility] 1.2.840.114 350.1.13.10 4.2.7.2.686 [id number] [facility] 2020-03-26 09:00:00 2020-03-26 09:00:00 Outpatient R ELVIE FAN [facility] [id number] [facility] 2020-03-26 08:01:41 2020-03-26 08:16:41 Telemedici ne Visit Patricia [facility] 1.2.840.114 350.1.13.10 4.2.7.2.686 [id number] [facility] 2020-03-20 00:00:00 2020-03-20 00:00:00 NON-BILLAB LE VISIT STLMLC STLMLC [id number] [facility] 2020-03-11 00:00:00 2020-03-11 00:00:00 NON-BILLAB LE VISIT STLMLC STLMLC [id number] [facility] 2020-02-28 00:00:00 2020-02-28 00:00:00 OFFICE VISIT EST PT LEVEL 3 STLMLC STLMLC [id number] [facility] 2020-02-18 00:00:00 2020-02-18 00:00:00 (TEL) STLMLC STLMLC [id number] [facility] 2020-02-12 00:00:00 2020-02-12 00:00:00 OFFICE VISIT ESTAB PT LEVEL 4 STLMLC STLMLC [id number] [facility] 2020-01-30 09:45:00 2020-01-30 09:45:00 Outpatient R ELVIE FAN [facility] [id number] [facility] 2020-01-30 00:00:00 2020-01-30 00:00:00 Telephone Jocelin Davis [facility] 1..840.114 350.1.13.10 4.2.7.2.686 [id number] [facility] 2020-01-29 00:00:00 2020-01-29 00:00:00 OFFICE VISIT ESTAB PT LEVEL 4 STLMLC STLMLC [id number] [facility] 2020-01-25 14:40:00 2020-01-25 14:40:00 Outpatient R ELVIE FAN [facility] [id number] [facility] 2020-01-23 07:42:59 2020-01-23 20:30:59 Telemedici ne Visit Elvie Fan [facility] 1.840.114 350.1.13.10 4.2.7.2.686 [id number] [facility] 2020-01-23 09:15:00 2020-01-23 09:15:00 Outpatient R ELVIE FAN [facility] [id number] [facility] 2020-01-23 00:00:00 2020-01-23 00:00:00 (TEL) STLMLC STLMLC [id number] [facility] 2020-01-22 00:00:00 2020-01-22 00:00:00 OFFICE VISIT NEW PT LEVEL 4 STLMLC STLMLC [id number] [facility] 2020-01-20 14:48:00 2020-01-20 16:37:00 Emergency Leyda Juares [facility] 1.840.114 350.1.13.10 4.2.7.2.686 [id number] [facility] 2020 00:00:00 2020 00:00:00 Telephone Elvie Fan [facility] 1.2.840.114 350.1.13.10 4.2.7.2.686 [id number] [facility] 2020-01-16 00:00:00 2020-01-16 00:00:00 Telephone Izzy Villanueva [facility] FOOD SERVICE [employer] [facility]ILD [facility] 1.2840.114 350.1.13.10 4.2.7.2.686 [id number] [facility] 2020-01-02 09:01:49 2020-01-02 17:14:00 Office Visit Elvie Fan [facility] 1.840.114 350.1.13.10 4.2.7.2.686 [id number] [facility] 2020-01-02 09:15:00 2020-01-02 09:15:00 Outpatient R ELVIE FAN [facility] [id number] [facility] 2020-01-02 00:00:00 2020-01-02 00:00:00 Orders Only Doctor Unassigned, [place] [facility] 1.840.114 350.1.13.10 4.2.7.2.686 [id number] [facility] 2019-12-05 10:00:00 2019-12-05 10:00:00 Outpatient R ELVIE FAN [facility] [id number] [facility] 2019-11-23 13:00:00 2019-11-23 13:00:00 Outpatient R ELVIE FAN [facility] [id number] [facility] 2019-11-23 11:20:22 2019-11-23 11:35:22 Billing Encounter Izzy Villanueva [facility] FOOD SERVICE [employer] [facility] 1.2840.114 350.1.13.10 4.2.7.2.686 [id number] [facility] 2019-11-23 10:31:41 2019-11-23 11:21:56 Office Visit Izzy Villanueva [facility] FOOD SERVICE [employer] [facility]NAL [facility]ILD [facility] 1.2840.114 350.1.13.10 4.2.7.2.686 [id number] [facility] 2019-11-23 10:45:00 2019-11-23 10:45:00 Outpatient IZZY RICHARDS [facility] [id number] [facility] 2019-11-23 00:00:00 2019-11-23 00:00:00 Orders Only Doctor Unassigned, [place] [facility] .840.114 350.1.13.10 4.2.7.2.686 [id number] [facility] 2019-08-17 08:10:51 2019-08-17 16:47:26 Telemedici ne Visit Elvie Fan [facility] .840.114 350.1.13.10 4.2.7.2.686 [id number] [facility] 2019-08-17 13:15:00 2019-08-17 13:15:00 Outpatient R ELVIE FAN [facility] [id number] [facility] 2019-08-15 10:00:00 2019-08-15 10:00:00 Outpatient R ELVIE FAN [facility] [id number] [facility] 2019-07-24 09:00:00 2019-07-24 09:00:00 Outpatient SAMIA HATHAWAY [facility] [id number] [facility] 2019-07-20 09:10:58 2019-07-20 09:25:58 Telemedici ne Visit Adalberto Herbert [facility] FOOD SERVICE [employer] [facility]ER[facility] CHILD [facility] .840.114 350.1.13.10 4.2.7.2.686 [id number] [facility] 2019-07-20 09:00:00 2019-07-20 09:00:00 Outpatient ADALBERTO HE [facility] [id number] [facility] 2019-07-20 00:00:00 2019-07-20 00:00:00 Telephone Samia Bae [facility] 1.2840.114 350.1.13.10 4.2.7.2.686 [id number] [facility] 2019-07-17 00:00:00 2019-07-17 00:00:00 Telephone Alison Torres [facility] FOOD SERVICE [employer] [facility] 1.2.840.114 350.1.13.10 4.2.7.2.686 [id number] [facility] Results Test Description Test Time Test Comments Results Result Co mments Source TSH, THIRD [id number] 06:49:21* Test Item Value Reference Range Interpretation Comme [facility] TSH, THIRD GENERATION (test code = 2821) 5.040 UIU/ML 0.400-4.100 H VITAMIN [id number] 04:58:30* Test Item Value Reference Range Interpretation Comme [facility] VITAMIN B-12 (test code = 2840) 231 PG/ML 200-950 UNLESS OTHERWISE INDICATED, ALL TESTING PERFORMED AT [facility] [address] [place] [address] CHILD CARE CENTER ASSISTANT DIRECTOR: BE MANDEL M.D. CLIA NUMBER [id number] [facility] [place] [id number] COMPREHENSIVE METABOLIC [id number] 03:40:07* Test Item Value Reference Range Interpretation Comme [facility] GLUCOSE (test code = 2217) 102 MG/DL 70-99 H BUN (test code = 2208) 11 MG/DL 6-20 CREATININE (test code = 2214) 0.87 MG/DL 0.60-1.30 eGFR (2020 CKD-EPI) (test code = 96726) 97 ML/MIN/1.73 >60 CALC BUN/CREAT (test code [...] 7.0 G/DL 6.1-8.3 ALBUMIN (test code = 220) 4.7 G/DL 3.5-5.2 CALC GLOBULIN (test code = 2240) 2.3 G/DL 1.9-3.7 CALC A/G RATIO (test code = 2234) 2.0 RATIO 1.0-2.6 BILIRUBIN, TOTAL (test code = 2207) 0.4 MG/DL See_Comment [Automated me ssage] The system which generated this result transmitted reference range: <=1.2. The reference range was not used to interpret this result as normal/abnormal. ALKALINE PHOSPHATASE (test code = 2203) 75 U/L 39-117 AST (test code = 2218) 17 U/L 9-40 ALT (test code = 9) 13 U/L 5-40 LIPID [id number] 03:40:07* Test Item Value Reference Range Interpretation Comme nts CHOLESTEROL (test code = 2209) 175 MG/DL <200 TRIGLYCERIDES (test code = 2231) 83 MG/DL <150 HDL CHOLESTEROL (test code = 2219) 46 MG/DL >39 CALC LDL CHOL (test code = 2236) 112 MG/DL <100 H NOTE: CALCULATED LDL IS BASED ON JEWEL-CHAVEZ METHOD WHICHINCLUDES ADJUSTABLE TRIGLYCERIDE:VLDL CHOLESTEROL RATIO.THIS FACTOR VARIES BY MEASURED TRIGLYCERIDE AND NON-HDLCHOLESTEROL CONCENTRATIONS WITH INCREASED CALCULATED LDL SEENIN HIGHER TRIGLYCERIDE OR LOWER NON-HDL SPECIMENS. FOR MOREINFORMATION, SEE CLIENT ANNOUNCEMENT AT [email or web address] RISK RATIO LDL/HDL (test code = 223) 2.43 RATIO <3.22 HEMOGLOBIN [id number] 02:34:49* Test Item Value Reference Range Interpretation Comme nts HEMOGLOBIN A1c (test code = 75366) 5.5 % 4.2-5.6 CBC W/AUTO DIFF WITH [id number] 01:53:27* Test Item Value Reference Range Interpretation [...] = 1065) 0.0 /100 WBC'S See_Comment [Automated messa ge] The system which generated this result [...] 0.00-0.10 ABS NUCLEATED RBCS (test code = 58712) 0.00 K/UL 0.00-0.11 POCT [id number] 11:33:00* Test Item Value Reference Range Interpretation Comme nts POCT PREG (test code = 1605) Negative On board controls acceptable with C Line (test code = 3574) Yes POCT PREG LOT # (test code = 3575) POCT PREG TEST DATE ( test code = 3576) Lab Interpretation (test cod e = 91607-2) [facility] Right Wo Cont
[2023-08-14] MEDS ORDERED: IBUPROFEN 400 MG TAB ONE (22:56)
--- NOTE | 2023-08-15 00:33 | ER ---
Nurse's Notes [facility] Name: Julián Stokes Age: 23 yrs Sex: Female : 2000 Arrival Date: 08/14/2023 Time: 22:30 Bed 10 Private MD: Diagnosis: Pain in left knee Presentation: 08/13 22:46 Chief complaint: Patient states: pt was playing basketball and felt a shift and pain in as6 her left knee. Coronavirus screen: At this time, the client does not indicate any symptoms associated with coronavirus-19. Ebola Screen: No symptoms or risks identified at this time. Initial Sepsis Screen: Does the patient meet any 2 criteria? No. Patient's initial sepsis screen is negative. Does the patient have a suspected source of infection? No. Patient's initial sepsis screen is negative. Risk Assessment: Do you want to hurt yourself or someone else? Patient reports no desire to harm self or others. Onset of symptoms was August 14, 2023. 22:46 Acuity: JOSELYN 4 as6 22:46 Method Of Arrival: Wheelchair as6 Triage Assessment: 22:47 General: Appears in no apparent distress. uncomfortable, Behavior is calm, cooperative. as6 Pain: Complains of pain in left knee. EENT: No deficits noted. No signs and/or symptoms were reported regarding the EENT system. Neuro: Level of Consciousness is awake, alert, obeys commands, Oriented to person, place, time, situation. Cardiovascular: Capillary refill < 3 seconds Patient's skin is warm and dry. Respiratory: Respiratory effort is even, unlabored, Respiratory pattern is regular, symmetrical. GI: No deficits noted. No signs and/or symptoms were reported involving the gastrointestinal system. : No deficits noted. No signs and/or symptoms were reported regarding the genitourinary system. Derm: Skin is intact, is healthy with good turgor. Musculoskeletal: Range of motion: limited in left knee Swelling present in left knee. 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 - Infectious Disease History:: Denies. - Social history:: Smoking status: Reported history of juuling and/or vaping. Screenin:49 [facility] ED Fall Risk Assessment (Adult) History of falling in the last 3 months, as6 including since admission Yes- single mechanical fall (1 pt) Confusion or Disorientation No (0 pts) Intoxicated or Sedated No (0 pts) Impaired Gait Yes (1 pt) Mobility Assist Device Used No (0 pt) Altered Elimination No (0 pt) Score/Fall Risk Level 0 - 2 = Low Risk Oriented to surroundings, Maintained a safe environment, Educated pt \T\ family on fall prevention, incl call for assistance when getting out of bed, Assessed \T\ reinforced patient's understanding of fall precautions. Abuse screen: Denies threats or abuse. Denies injuries from another. Nutritional screening: No deficits noted. Tuberculosis screening: No symptoms or risk factors identified. Assessment: 23:47 Reassessment: Patient appears in no apparent distress at this time. Patient and/or as6 family updated on plan of care and expected duration. Pain level reassessed. Patient is alert, oriented x 3, equal unlabored respirations, skin warm/dry/pink. Vital Signs: 22:46 BP 139 / 80; Pulse 81; Resp 18 S; Temp 97.7; Pulse Ox 100% on R/A; Weight 136.08 kg as6 (R); Height 5 ft. 11 in. (R); Pain 8/10; 23:47 BP 126 / 71; Pulse 86; Resp 18 S; Pulse Ox 99% on R/A; as6 22:46 Body Mass Index 41.84 (136.08 kg, 180.34 cm) as6 22:46 Pain Scale: Adult as6 ED Course: 22:33 Patient arrived in ED. gm2 22:34 Mohan Melo PA is PHCP. cp 22:34 Alex Wynn MD is Attending Physician. cp 22:45 Pablo Meza, KENYATTA is Primary Nurse. as6 22:47 Triage completed. as6 22:49 Arm band placed on. as6 22:49 Bed in low position. Call light in reach. Side rails up X2. Client placed on continuous as6 cardiac and pulse oximetry monitoring. NIBP monitoring applied. 23:44 XRAY Knee LEFT 3 view In Process Unspecified. EDMS 23:47 Door closed. Lights dimmed. Warm blanket given. as6 08/14 01:01 No provider procedures requiring assistance completed. Patient did not have IV access cm10 during this emergency room visit. Crutch training done. Knee immobilizer applied on left knee. 01:03 Provided Education on: ER process and procedures. cm10 Administered Medications: 08/13 22:58 Drug: Ibuprofen PO 800 mg PO once Route: PO; as6 08/14 01:02 Follow up: Response: No adverse reaction cm10 Medication: 08/13 22:49 VIS not applicable for this client. Outcome: 08/14 00:33 Discharge ordered by . cp 01:03 Discharged to home via wheelchair, with crutches, with family, cm10 01:03 Condition: good 01:03 Discharge instructions given to patient, Instructed on discharge instructions, follow up and referral plans. medication usage, crutch walking, Demonstrated understanding of instructions, follow-up care, medications, crutch walking, Prescriptions given X 1, 01:03 Patient left the ED. cm10 Signatures: Dispatcher [employer] EDMS Mohan Melo PA PA cp Slawson, Ashby RN RN as6 Zakiya Krishnamurthy RN RN cm10 Nerissa Klein [facility]
--- NOTE | 2023-08-15 00:33 | EDPHYS ---
Physician Documentation [facility] Name: Julián Stokes Age: 23 yrs Sex: Female : 2000 Arrival Date: 08/14/2023 Time: 22:30 Bed 10 Private MD: ED Physician Alex Wynn HPI: 08/13 22:55 This 23 yrs old Black Female presents to ER via Wheelchair with complaints of Knee cp Pain, Knee Injury. 22:55 The patient presents with an injury, pain, that is acute. The complaints affect the cp left knee. Context: patient reports she was playing basketball and went up for a lay up and believes she landed wrong causing injury to left knee. Onset: The symptoms/episode began/occurred today. Associated signs and symptoms: The patient has no apparent associated signs or symptoms. 22:55 Treatment prior to arrival includes: no previous treatment. 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 - Infectious Disease History:: Denies. - Social history:: Smoking status: Reported history of juuling and/or vaping. ROS: 23:05 MS/extremity: Positive for pain, tenderness, of the left knee, Negative for deformity, cp 23:05 Constitutional: Negative for body aches, chills, fever, poor PO intake, cp 23:05 All other systems are negative, Exam: 23:10 Constitutional: The patient appears in no acute distress, alert, awake, non-toxic, well cp developed, well nourished, obese, 23:10 Head/Face: Normocephalic, atraumatic. cp 23:10 Back: pain, is absent, ROM is normal, 23:10 Musculoskeletal/extremity: Extremities: grossly normal except: noted in the left knee: tenderness, There is no evidence of decreased ROM, deformity, ROM: limited passive range of motion due to pain, in the left knee, Perfusion: the extremity is normally perfused throughout, Sensation intact. Vital Signs: 22:46 BP 139 / 80; Pulse 81; Resp 18 S; Temp 97.7; Pulse Ox 100% on R/A; Weight 136.08 kg as6 (R); Height 5 ft. 11 in. (R); Pain 8/10; 23:47 BP 126 / 71; Pulse 86; Resp 18 S; Pulse Ox 99% on R/A; as6 22:46 Body Mass Index 41.84 (136.08 kg, 180.34 cm) as6 22:46 Pain Scale: Adult as6 MDM: 22:41 Patient medically screened. cp 08/14 00:32 Data reviewed: vital signs, nurses notes, radiologic studies, plain films. cp 00:32 Differential diagnosis: dislocation, closed fracture, sprain. I considered the cp following discharge prescriptions or medication management in the emergency department Medications were administered in the Emergency Department. See MAR. Counseling: I had a detailed discussion with the patient and/or guardian regarding the historical points, exam findings, and any diagnostic results supporting the discharge/admit diagnosis, radiology results, the need for outpatient follow up, a orthopedic surgeon, to return to the emergency department if symptoms worsen or persist or if there are any questions or concerns that arise at home. Response to treatment: the patient's symptoms have mildly improved after treatment, and as a result, I will discharge patient. 08/13 22:52 Order name: XRAY Knee LEFT 3 view cp 08/14 00:32 Order name: Knee Immobilizer; Complete Time: 01:02 cp 08/14 00:32 Order name: Crutches; Complete Time: 01:02 cp Administered Medications: 08/13 22:58 Drug: Ibuprofen PO 800 mg PO once Route: PO; as6 08/14 01:02 Follow up: Response: No adverse reaction cm10 Disposition: 21:55 Co-signature as Attending Physician, Alex Wynn MD I agree with the assessment sp4 and plan of care. I reviewed the patient's care provided by the Advanced Practice Provider and agree with the diagnosis and treatment plan. Disposition Summary: 08/15/23 00:33 Discharge Ordered Notes: Location: Home cp Problem: new cp Symptoms: have improved cp Condition: Stable cp Diagnosis - Pain in left knee cp Followup: cp - With: Private Physician - When: 2 - 3 days - Reason: Recheck today's complaints Discharge Instructions: - Discharge Summary Sheet cp - Elastic Bandage and RICE Therapy cp - How to Use a Knee Immobilizer cp - Acute Knee Pain, Adult cp Forms: - Medication Reconciliation Form cp - Antibiotic Education cp - Prescription Opioid Use cp - Patient Portal Instructions cp - Leadership Thank You Letter cp - Work release form cm10 Prescriptions: - Diclofenac Sodium 75 mg Oral tablet, delayed release (enteric coated) - take 1 tablet ORAL route 2 times per day; 20 tablet; Refills: 0, Product cp Selection Permitted Signatures: Dispatcher [employer] EDMS Mohan Melo PA PA cp Pablo Meza RN RN as6 Alex Wynn MD MD sp4 Zakiya Krishnamurthy RN cm10 Corrections: (The following items were deleted from the chart) 08/13 22:52 22:52 Knee Left 3 View+RAD.RAD.BRZ ordered. EDMS EDMS
[2023-08-15 01:32] VITALS: BP 126/71; TEMP 97.7; O2SAT 99
--- NOTE | 2023-08-15 11:53 | RAD REPORT ---
EXAM DESCRIPTION: Knee Left 3 View CLINICAL HISTORY: PAIN COMPARISON: None FINDINGS: Three x-ray views of the left knee were submitted. There is no acute fracture or dislocati on. Bone mineralization is within normal limits. There is no radiopaque foreign body material. IMPRESSION: No acute fracture or dislocation. Electronically signed by: Seamus Moore MD 08/15/2023 12:06 AM CDT Due to temporary technical issues with the PACS/Fluency reporting system, reports are being signed by the in house radiologist without review as a courtesy to ensure prompt reporting. The interpreting r adiologist is fully responsible for the content of the report.
== END 2023-08-15 01:03 | disposition home or self-care (01) ==
LOC: ER 22:30
DX: M25.562 Pain in left knee (principal)
CPT/HCPCS: 99284